=== PATIENT | male | born 1950 | race Caucasian/White ===

== ENCOUNTER 2016-03-25 12:42 | Emergency (ER) | payer MEDICARE, MEDICAID ==
[~2016-03-25] VITALS: Ht 175.3 cm; Wt 61.0 kg
[~2016-03-25 12:42] MED LIST: APIX5TAB PO; CLON1 PO; DILT300C3 PO; HARVONI PO; METO-309 PO; MORP15TA73; MS C30TA PO; MULT-6 PO; PROB1CAP12 PO; SYMB80AE INH; VITA10007 PO; ZOFR4TAB PO
[2016-03-25 12:56] VITALS: BP 133/68; PULSE 107; RESP 22; TEMP 97.6; O2SAT 100
[2016-03-25 13:05] VITALS: BP 133/68; PULSE 107; RESP 22; TEMP 97.6; O2SAT 100
[2016-03-25 13:22] VITALS: O2SAT 100
--- NOTE | 2016-03-25 13:27 | PD ---
HPI Chief Complaint: Cardiac Complaint Time Seen by Provider: 13:10 Travel History International Travel<30 days: No Contact w/Intl Traveler<30days: No Traveled to known affect area: No History of Present Illness HPI 65-year-old male complains of shortness of breath and abdominal pain. Patient has history of recurrent right low quadrant abdominal pain for the past few months. Patient has been seen by GI specialist and to the emergency room for the pain in the past. Patient also has history COPD. Patient has been using Symbicort home. Patient states that he is unable to tolerate albuterol because of fibrillation problem. Patient denies any chest pain. Patient denies any nausea vomiting diarrhea. Patient states the pain is same recurrent pain he has some right upper quadrant of the abdomen. Patient has been taking morphine at home for pain. Patient denies any coughing congestion fever chills. Patient has history of hepatitis C. Patient has history of atrial fibrillation , anxiety, hypertension, PTSD. PFSH Past Medical History Hx Anticoagulant Therapy: Yes Arthritis: Yes Asthma: No Atrial Fibrillation: Yes (WITH RVR) Autoimmune Disease: No Blood Disorders: No Anxiety: Yes ("severe") Depression: Yes (dysphoria...low grade) Heart Rhythm Problems: Yes (A fib) Cardiovascular Problems: Yes (htn on meds, a-fib) High Cholesterol: No Chemotherapy: No Chest Pain: No Congestive Heart Failure: No COPD: Yes Cerebrovascular Accident: No Diabetes: No Diminished Hearing: No Deep Vein Thrombosis: Yes (RLE) Endocrine: No Gastrointestinal Disorders: Yes GERD: No Glaucoma: No Genitourinary: No Headaches: No Hepatitis: Yes (C) Hiatal Hernia: No Hypertension: Yes Immune Disorder: No Implanted Vascular Access Dvce: Yes Kidney Stones: No Musculoskeletal: Yes (RIGHT ANKLE MULTIPLE SURGERIES, PINS AND SCREWS) Neurologic: Yes Psychiatric: Yes (PTSD) Reproductive: No Respiratory: Yes (copd) Immunizations Current: Yes Migraines: No Myocardial Infarction: No Pancreatitis: Yes Pneumonia: Yes Radiation Therapy: No Renal Failure: No Seizures: No Sickle Cell Disease: No Sleep Apnea: No Thyroid Disease: No Ulcer: No Tetanus Vaccination: > 5 Years Influenza Vaccination: Yes Past Surgical History Abdominal Surgery: No AICD: No Appendectomy: No Arteriovenous Shunt: No Body Medical Devices: PLATE/SCREWS FOR R/ANKLE Cardiac Surgery: No Cholecystectomy: No Ear Surgery: No Endocrine Surgery: No Eye Surgery: No Genitourinary Surgery: No Insulin Pump: No Joint Replacement: Yes (rt ankle) Neurologic Surgery: No Oral Surgery: Yes (TEETH REMOVED 2014) Pacemaker: No Thoracic Surgery: No Tonsillectomy: Yes Other Surgery: Yes Social History Alcohol Use: No Tobacco Use: Yes (2 TO 3 CIGS PER DAY) Substance Use: No Allergies-Medications (Allergen,Severity, Reaction): Coded Allergies: Codeine (Verified Allergy, Severe, TURN RED, SOB, HIVES, 03/25/16) Nizoral (Verified Allergy, Intermediate, Rash, 03/25/16) ITCHING *MDRO Multi-Drug Resistant Organism (Verified Adverse Reaction, Unknown, ) Pt. reports hx MRSA. MRSA PCR Screen NEGATIVE - 10/26/14, 03/23/15 CLEARED PER INFECTION CONTROL Reported Meds & Prescriptions Reported Meds & Active Scripts Active Reported [harvoNI] 400 Mg PO DAILY Lopressor (Metoprolol Tartrate) 50 Mg Tab 75 Mg PO BID Eliquis (Apixaban) 5 Mg Tab 5 Mg PO BID Morphine Sulfate CR (Morphine Sulfate) 15 Mg Tab TID Ms Contin (Morphine Sulfate) 30 Mg Tab 30 Mg PO Symbicort Inh (Budesonide/Formoterol Fumarate) 80-4.5 Mcg/Act Aero 2 Puff INH Q12HR Diltiazem CD 24 HR 300 Mg Caper 300 Mg PO DAILY Klonopin (Clonazepam) 1 Mg Tab 1 Mg PO TID Review of Systems General / Constitutional: No: Fever Eyes: No: Visual changes HENT: No: Headaches Cardiovascular: No: Chest Pain or Discomfort Respiratory: Positive: Shortness of Breath Gastrointestinal: Positive: Abdominal Pain Genitourinary: No: Dysuria Musculoskeletal: No: Pain Skin: No Rash Neurologic: No: Weakness Psychiatric: No: Depression Endocrine: No: Polydipsia Hematologic/Lymphatic: No: Easy Bruising Physical Exam Narrative GENERAL: Well-nourished, well-developed patient. SKIN: Warm and dry. HEAD: Normocephalic. EYES: No scleral icterus. No injection or drainage. NECK: Supple, trachea midline. No JVD or lymphadenopathy. CARDIOVASCULAR: Regular rate and rhythm without murmurs, gallops, or rubs. RESPIRATORY: Breath sounds equal bilaterally. No accessory muscle use. GASTROINTESTINAL: Abdomen soft, nondistended. Patient has moderate tenderness on palpation right upper quadrant of the abdomen. No rebound tenderness. No mass. MUSCULOSKELETAL: No cyanosis, or edema. BACK: Nontender without obvious deformity. No CVA tenderness. Neurologic exam normal. Data Data Last Documented VS Vital Signs Date Time Temp Pulse Resp B/P Pulse Ox O2 Delivery O2 Flow Rate FiO2 03/25/16 13:22 100 Room Air 03/25/16 13:05 97.6 107 22 133/68 Orders Complete Blood Count With Diff (03/25/16 13:18) Comprehensive Metabolic Panel (03/25/16 13:18) Prothrombin Time / Inr (Pt) (03/25/16 13:18) Act Partial Throm Time (Ptt) (03/25/16 13:18) Lipase (03/25/16 13:18) Chest, Single Ap (03/25/16 13:18) Iv Access Insert/Monitor (03/25/16 13:18) Ecg Monitoring (03/25/16 13:18) Oximetry (03/25/16 13:18) Labs Laboratory Tests Test 03/25/16 13:23 White Blood Count 11.3 TH/MM3 Red Blood Count 4.35 MIL/MM3 Hemoglobin 10.9 GM/DL Hematocrit 34.0 % Mean Corpuscular Volume 78.0 FL Mean Corpuscular Hemoglobin 25.0 PG Mean Corpuscular Hemoglobin 32.0 % Concent Red Cell Distribution Width 17.6 % Platelet Count 493 TH/MM3 Mean Platelet Volume 7.6 FL Neutrophils (%) (Auto) 43.8 % Lymphocytes (%) (Auto) 45.6 % Monocytes (%) (Auto) 9.0 % Eosinophils (%) (Auto) 0.8 % Basophils (%) (Auto) 0.8 % Neutrophils # (Auto) 5.0 TH/MM3 Lymphocytes # (Auto) 5.1 TH/MM3 Monocytes # (Auto) 1.0 TH/MM3 Eosinophils # (Auto) 0.1 TH/MM3 Basophils # (Auto) 0.1 TH/MM3 CBC Comment AUTO DIFF Differential Comment AUTO DIFF CONFIRMED Target Cells 1+ Prothrombin Time 11.2 SEC Prothromb Time International 1.0 RATIO Ratio Activated Partial 30.0 SEC Thromboplast Time Sodium Level 139 MEQ/L Potassium Level 3.9 MEQ/L Chloride Level 105 MEQ/L Carbon Dioxide Level 26.5 MEQ/L Anion Gap 8 MEQ/L Blood Urea Nitrogen 9 MG/DL Creatinine 0.75 MG/DL Estimat Glomerular Filtration 105 ML/MIN Rate Random Glucose 91 MG/DL Calcium Level 8.6 MG/DL Total Bilirubin 0.3 MG/DL Aspartate Amino Transf 42 U/L (AST/SGOT) Alanine Aminotransferase 41 U/L (ALT/SGPT) Alkaline Phosphatase 88 U/L Total Protein 7.5 GM/DL Albumin 3.1 GM/DL Lipase 307 U/L MDM Medical Decision Making Medical Screen Exam Complete: Yes Emergency Medical Condition: Yes Interpretation(s) 1353 PM. Last Impressions Chest X-Ray 03/25/16 1318 Signed Impressions: Service Date/Time: Friday, March 25, 2016 13:20 - CONCLUSION: No acute disease. Sofie Nava MD 1353 PM. CBC WBC 11.3. Hemoglobin 10.9 and hematocrit 34.0. MCV 78. CMP within normal limit. Differential Diagnosis Differential diagnosis including acute exacerbation COPD, acute exacerbation of right upper quadrant abdominal pain, gastritis, PUD, pancreatitis, cholecystitis , colitis, UTI, pyelonephritis. Narrative Course 65-year-old male with recurrent right upper quadrant abdominal pain. History of hepatitis C. Patient denies shortness of breath. History COPD. Diagnosis Primary Impression: Recurrent abdominal pain Additional Impression: COPD (chronic obstructive pulmonary disease) Qualified Code: J44.9 - Chronic obstructive pulmonary disease, unspecified COPD type Patient Instructions: General Instructions Additional Instructions: Continue with medications. Use albuterol treatment as needed for shortness of breath. Follow-up with personal physician. Return if worse. Med/Other Pt SpecificInfo: No Change to Meds Disposition: 01 DISCHARGE HOME Condition: Stable Patel Bryson MD Mar 25, 2016 13:26
[2016-03-25 13:30] LABS: BASOPHIL # 0.1 TH/MM3 (0-0.2); BASOPHIL % 0.8 % (0.0-2.0); EOSINOPHIL # 0.1 TH/MM3 (0-0.4); EOSINOPHIL % 0.8 % (0.0-4.0); LYMPH % 45.6 % (9.0-44.0); LYMPHOCYTE # 5.1 TH/MM3 (1.0-4.8); NEUT % 43.8 % (16.0-70.0); PLATELET COUNT 493 TH/MM3 (150-450); RED BLOOD COUNT 4.35 MIL/MM3 (4.50-5.90); RED CELL DISTRIBUTION WIDTH 17.6 % (11.6-17.2); WHITE BLOOD COUNT 11.3 TH/MM3 (4.0-11.0)
[2016-03-25 13:32] LABS: HEMO FLAGS AUTO DIFF
--- NOTE | 2016-03-25 13:34 | RADHPO ---
EXAM DATE/TIME: 03/25/2016 13:20 [facility] COMPARISON: CT PULMONARY ANGIOGRAM, July 09, 2015, 13:22. CHEST SINGLE AP, January 29, 2016, 19:33. US ABDOME N - GALLBLADDER, February 11, 2016, 12:10. INDICATIONS : Short of breath. MEDICAL HISTORY : Hypertension. Chronic obstructive pulmonary disease. Emphysema. SURGICAL HISTORY : None. ENCOUNTER: Initial ACUITY: 1 week PAIN SCORE: 0/10 LOCATION: Bilateral chest FINDINGS: Single AP upright view of the chest demonstrates stable scarring within the left lung apex and left l ower lung. Stable findings consistent with COPD and emphysema. No evidence of pneumothorax or focal a irspace consolidation. Heart size is normal. Osseous structures are unremarkable. CONCLUSION: No acute disease. Sofie Nava MD on March 25, 2016 at 13:31 Board Certified Radiologist. This report was verified electronically.
[2016-03-25 13:36] LABS: CHLORIDE 105 MEQ/L (98-107); POTASSIUM 3.9 MEQ/L (3.5-5.1); SODIUM (NA) 139 MEQ/L (136-145)
[2016-03-25 13:41] LABS: ANION GAP 8 MEQ/L (5-15); BICARBONATE 26.5 MEQ/L (21.0-32.0); BLOOD UREA NITROGEN 9 MG/DL (7-18)
[2016-03-25 13:42] LABS: PROTHROMBIN TIME - PATIENT 11.2 SEC (9.8-11.6)
[2016-03-25 13:44] LABS: ALT (GPT) 41 U/L (12-78); AST (GOT) 42 U/L (15-37); GLOMERULAR FILTRATION RATE 105 ML/MIN (>89)
[2016-03-25 13:45] LABS: TOTAL BILIRUBIN ADULT 0.3 MG/DL (0.2-1.0)
[2016-03-25 13:47] LABS: ALKALINE PHOSPHATASE 88 U/L (45-117)
[2016-03-25 13:50] LABS: TARGET CELLS 1+ (NORMAL)
[2016-03-25 13:51] LABS: SCAN/DIFF AUTO DIFF CONFIRMED
[2016-03-25 14:01] VITALS: BP 119/68; PULSE 90; RESP 17; O2SAT 100
--- NOTE | 2016-03-26 22:48 | EKG ---
Date Performed: 03/25/2016 Time Performed: 12:41:52 PTAGE: 65 years EKG: Atrial fibrillation with rapid ventricular response Inferior and septal ST-T changes are no nspecific Abnormal ECG PREVIOUS TRACING : 01/29/2016 19.15 DOCTOR: Allen Villegas Interpretating Date/Time 03/26/2016 22:44:57
[2016-03-31] MEDS ORDERED: APIX5TAB PO (09:00)
[2016-04-30] MEDS ORDERED: ZOLO100T PO (16:21)
[2016-04-30] MEDS ORDERED: MORP15TA73 (16:24)
[2016-05-08] MEDS ORDERED: DILT300C3 PO (17:09)
[2016-06-03] MEDS ORDERED: SERT-129 PO (11:24)
[2016-06-06] MEDS ORDERED: DILT300C3 PO (14:34)
[2016-06-12] MEDS ORDERED: CIPR0.3S2 LEFT EYE (13:35)
[2016-06-12] MEDS ORDERED: KETO0.5S2 LEFT EYE (13:35)
[2016-06-12] MEDS ORDERED: PRED1SUS LEFT EYE (13:35)
[2016-07-03] MEDS ORDERED: KETO0.5S2 LEFT EYE (14:24)
[2016-07-03] MEDS ORDERED: PRED1SUS LEFT EYE (14:24)
[2016-07-31] MEDS ORDERED: APIX5TAB PO (13:01)
== END 2016-03-25 14:11 | disposition home or self-care (01) ==
LOC: PHED 12:42
DX: R10.9 Unspecified abdominal pain (principal); J44.9 Chronic obstructive pulmonary disease, unspecified; Z79.01 Long term (current) use of anticoagulants; I48.91 Unspecified atrial fibrillation; I10 Essential (primary) hypertension; F41.9 Anxiety disorder, unspecified; Z86.718 Personal history of other venous thrombosis and embolism; F43.10 Post-traumatic stress disorder, unspecified; F17.210 Nicotine dependence, cigarettes, uncomplicated
CPT/HCPCS: 71010; 80053; 83690; 85025; 85610; 85730; 93005; 99285

== ENCOUNTER 2016-04-21 13:59 | Emergency (ER) | payer MEDICARE, MEDICAID ==
[~2016-04-21] VITALS: Ht 175.3 cm; Wt 62.7 kg
[~2016-04-21 13:59] MED LIST changes: -MULT-6 PO; -PROB1CAP12 PO; -VITA10007 PO; -ZOFR4TAB PO
[2016-04-21 14:10] VITALS: BP 119/73; PULSE 110; RESP 22; TEMP 98.4; O2SAT 100
[2016-04-22] MEDS ORDERED: MS C30TA PO (23:53)
[2016-04-30] MEDS ORDERED: ZOLO100T PO (16:21)
[2016-04-30] MEDS ORDERED: MORP15TA73 (16:24)
[2016-05-08] MEDS ORDERED: DILT300C3 PO (17:09)
[2016-06-03] MEDS ORDERED: SERT-129 PO (11:24)
[2016-06-06] MEDS ORDERED: DILT300C3 PO (14:34)
[2016-06-12] MEDS ORDERED: CIPR0.3S2 LEFT EYE (13:35)
[2016-06-12] MEDS ORDERED: KETO0.5S2 LEFT EYE (13:35)
[2016-06-12] MEDS ORDERED: PRED1SUS LEFT EYE (13:35)
[2016-07-03] MEDS ORDERED: PRED1SUS LEFT EYE (14:24)
[2016-07-03] MEDS ORDERED: KETO0.5S2 LEFT EYE (14:24)
[2016-07-31] MEDS ORDERED: APIX5TAB PO (13:01)
== END 2016-04-21 15:37 | disposition left against medical advice (07) ==
LOC: PHED 13:59
DX: R06.02 Shortness of breath (principal)
CPT/HCPCS: 99281

== ENCOUNTER 2016-04-22 17:01 | Observation (INO) | payer MEDICARE, MEDICAID ==
[~2016-04-22] VITALS: Ht 175.3 cm; Wt 62.1 kg
[2016-04-22 17:18] VITALS: BP 106/67; PULSE 99; RESP 16; TEMP 98; O2SAT 100
[2016-04-22] MEDS ORDERED: MORPHINE SULFATE 4 MG/ML INJ IV PUSH ONE ×2 (18:00→19:30)
[2016-04-22] MEDS ORDERED: SODIUM CHLORIDE 0.9% FLUSH 5 ML FLUSH IVF PRN ×2 (18:00→22:45)
[2016-04-22] MEDS ORDERED: RESP: ALBUTEROL 2.5 MG/IPRATROPIUM 0.5 MG NEB (SCH) NEB ONE (18:00)
[2016-04-22 18:13] VITALS: O2SAT 100
[2016-04-22 18:17] LABS: AUTOMATED NEUTROPHIL # 2.8 TH/MM3 (1.8-7.7); BASOPHIL # 0.1 TH/MM3 (0-0.2); BASOPHIL % 1.9 % (0.0-2.0); EOSINOPHIL # 0.1 TH/MM3 (0-0.4); EOSINOPHIL % 1.1 % (0.0-4.0); HEMATOCRIT 30.8 % (39.0-51.0); HEMO FLAGS AUTO DIFF; LYMPH % 41.9 % (9.0-44.0); LYMPHOCYTE # 2.8 TH/MM3 (1.0-4.8); MEAN CELL VOLUME 75.7 FL (80.0-100.0); MEAN CORPUSCULAR HEMOGLOBIN 23.5 PG (27.0-34.0); MONO % 13.5 % (0.0-8.0); NEUT % 41.6 % (16.0-70.0); PLATELET COUNT 412 TH/MM3 (150-450); RED BLOOD COUNT 4.07 MIL/MM3 (4.50-5.90); RED CELL DISTRIBUTION WIDTH 16.8 % (11.6-17.2); WHITE BLOOD COUNT 6.7 TH/MM3 (4.0-11.0)
[2016-04-22 18:45] LABS: SCAN/DIFF AUTO DIFF CONFIRMED
--- NOTE | 2016-04-22 18:56 | RADHPO ---
EXAM DATE/TIME: 04/22/2016 18:29 [facility] COMPARISON: CHEST SINGLE AP, January 29, 2016, 19:33. INDICATIONS : Short of breath for 4 days. MEDICAL HISTORY : Hypertension. Chronic obstructive pulmonary disease. Emphysema. SURGICAL HISTORY : None. ENCOUNTER: Initial ACUITY: 4 - 6 days PAIN SCORE: 0/10 LOCATION: Bilateral chest FINDINGS: There is stable left apical and basilar parenchymal scarring. No new infiltrate. Right lung relativel y clear. Heart size mildly enlarged. No pneumothorax. No significant effusion. CONCLUSION: 1. Stable left apical and basilar parenchymal scarring. No effusion. No pneumothorax. Santos Dalal MD on April 22, 2016 at 18:53 Board Certified Radiologist. This report was verified electronically.
--- NOTE | 2016-04-22 19:01 | PD ---
HPI Chief Complaint: Abdominal Pain Time Seen by Provider: 17:34 Travel History International Travel<30 days: No Contact w/Intl Traveler<30days: No Traveled to known affect area: No History of Present Illness HPI Patient is 65-year-old male presents emergency Department with 2 complaints: First complaint is he started having shortness of breath or cough. He does have a smoking history and history of COPD. States she's been having just a small amount of increased work of breathing. Patient denies any fever does endorse a dry cough. Does not use oxygen at home. No history of stasis or long trips recently. States his symptoms began after 2 days. Patient's second complaint is some right upper quadrant plain as well as some mild nausea without vomiting. Patient does state he has a history of hepatitis C and recently could have on a treatment. Patient states that after her chronic treatment he became some short of breath as well as this abdominal pain. Denies any blood in the stool diarrhea pale in the stool skin color changes. States his symptoms been going on for a week. Patient states he came here yesterday however the wait was too long and left without being seen. PFSH Past Medical History Hx Anticoagulant Therapy: Yes Arthritis: Yes Asthma: No Atrial Fibrillation: Yes (WITH RVR) Autoimmune Disease: No Blood Disorders: No Anxiety: Yes ("severe") Depression: Yes (dysphoria...low grade) Heart Rhythm Problems: Yes (A fib) Cardiovascular Problems: Yes (htn on meds, a-fib) High Cholesterol: No Chemotherapy: No Chest Pain: No Congestive Heart Failure: No COPD: Yes Cerebrovascular Accident: No Diabetes: No Diminished Hearing: No Deep Vein Thrombosis: Yes (RLE) Endocrine: No Gastrointestinal Disorders: Yes GERD: No Glaucoma: No Genitourinary: No Headaches: No Hepatitis: Yes (C) Hiatal Hernia: No Heparin Induced Thrombocytopen: No Hypertension: Yes Immune Disorder: No Implanted Vascular Access Dvce: Yes Kidney Stones: No Musculoskeletal: Yes (RIGHT ANKLE MULTIPLE SURGERIES, PINS AND SCREWS) Neurologic: Yes Psychiatric: Yes (PTSD) Reproductive: No Respiratory: Yes (copd) Immunizations Current: Yes Migraines: No Myocardial Infarction: No Pancreatitis: Yes Pneumonia: Yes Radiation Therapy: No Renal Failure: No Seizures: No Sickle Cell Disease: No Sleep Apnea: No Thyroid Disease: No Ulcer: No Past Surgical History Abdominal Surgery: No AICD: No Appendectomy: No Arteriovenous Shunt: No Body Medical Devices: PLATE/SCREWS FOR R/ANKLE Cardiac Surgery: No Cholecystectomy: No Ear Surgery: No Endocrine Surgery: No Eye Surgery: No Genitourinary Surgery: No Insulin Pump: No Joint Replacement: Yes (rt ankle) Neurologic Surgery: No Oral Surgery: Yes (TEETH REMOVED 2014) Pacemaker: No Thoracic Surgery: No Tonsillectomy: Yes Other Surgery: Yes Social History Alcohol Use: No Tobacco Use: Yes (2 TO 3 CIGS PER DAY) Substance Use: No Allergies-Medications (Allergen,Severity, Reaction): Coded Allergies: Codeine (Verified Allergy, Severe, TURN RED, SOB, HIVES, 04/22/16) Nizoral (Verified Allergy, Intermediate, Rash, 04/22/16) ITCHING *MDRO Multi-Drug Resistant Organism (Verified Adverse Reaction, Unknown, ) Pt. reports hx MRSA. MRSA PCR Screen NEGATIVE - 10/26/14, 03/23/15 CLEARED PER INFECTION CONTROL Reported Meds & Prescriptions Reported Meds & Active Scripts Active Eliquis (Apixaban) 5 Mg Tab 5 Mg PO BID Reported Lopressor (Metoprolol Tartrate) 50 Mg Tab 75 Mg PO BID Symbicort Inh (Budesonide/Formoterol Fumarate) 80-4.5 Mcg/Act Aero 2 Puff INH Q12HR Diltiazem CD 24 HR 300 Mg Caper 300 Mg PO DAILY Klonopin (Clonazepam) 1 Mg Tab 1 Mg PO TID Review of Systems Except as stated in HPI: all other systems reviewed are Neg Physical Exam Narrative GENERAL: Well-developed thin but in no apparent distress. SKIN: Warm and dry. HEAD: Atraumatic. Normocephalic. EYES: Pupils equal and round. No scleral icterus. No injection or drainage. ENT: No nasal bleeding or discharge. Mucous membranes pink and moist. NECK: Trachea midline. No JVD. CARDIOVASCULAR: Regular rate and rhythm. No murmur appreciated. RESPIRATORY: No accessory muscle use. Harsh breath sounds wheezes and rhonchi consistent with bronchitis. Breath sounds equal bilaterally. GASTROINTESTINAL: Abdomen soft, minimal tenderness to the right upper quadrant, nondistended. Hepatic and splenic margins not palpable. Rodriguez sign negative, no tenderness in McBurney's point. No rebound no percussive tenderness. MUSCULOSKELETAL: No obvious deformities. No clubbing. No cyanosis. No edema. NEUROLOGICAL: Awake and alert. No obvious cranial nerve deficits. Motor grossly within normal limits. Normal speech. PSYCHIATRIC: Appropriate mood and affect; insight and judgment normal. Data Data Last Documented VS Vital Signs Date Time Temp Pulse Resp B/P Pulse Ox O2 Delivery O2 Flow Rate FiO2 04/22/16 18:13 100 2 17:33 18 04/22/16 17:18 98.0 99 106/67 Orders Complete Blood Count With Diff (04/22/16 17:53) Comprehensive Metabolic Panel (04/22/16 17:53) Lipase (04/22/16 17:53) Lactic Acid (04/22/16 17:53) Prothrombin Time / Inr (Pt) (04/22/16 17:53) Act Partial Throm Time (Ptt) (04/22/16 17:53) Urinalysis - C+S If Indicated (04/22/16 17:53) Iv Access Insert/Monitor (04/22/16 17:53) Ecg Monitoring (04/22/16 17:53) Oximetry (04/22/16 17:53) Morphine Inj (Morphine Inj) (04/22/16 18:00) Sodium Chloride 0.9% Flush (Ns Flush) (04/22/16 18:00) Electrocardiogram (04/22/16 17:53) Chest, Single Ap (04/22/16 17:53) Albuterol-Ipratropium Neb (Duoneb Neb) (04/22/16 18:00) Us Abdomen Gallbladder (04/22/16 18:43) Labs Laboratory Tests Test 04/22/16 18:06 White Blood Count 6.7 TH/MM3 Red Blood Count 4.07 MIL/MM3 Hemoglobin 9.6 GM/DL Hematocrit 30.8 % Mean Corpuscular Volume 75.7 FL Mean Corpuscular Hemoglobin 23.5 PG Mean Corpuscular Hemoglobin 31.0 % Concent Red Cell Distribution Width 16.8 % Platelet Count 412 TH/MM3 Mean Platelet Volume 7.7 FL Neutrophils (%) (Auto) 41.6 % Lymphocytes (%) (Auto) 41.9 % Monocytes (%) (Auto) 13.5 % Eosinophils (%) (Auto) 1.1 % Basophils (%) (Auto) 1.9 % Neutrophils # (Auto) 2.8 TH/MM3 Lymphocytes # (Auto) 2.8 TH/MM3 Monocytes # (Auto) 0.9 TH/MM3 Eosinophils # (Auto) 0.1 TH/MM3 Basophils # (Auto) 0.1 TH/MM3 CBC Comment AUTO DIFF Differential Comment AUTO DIFF CONFIRMED MDM Medical Decision Making Medical Screen Exam Complete: Yes Emergency Medical Condition: Yes Interpretation(s) EKG shows a defibrillation with a normal axis and normal R-wave progression. No concerning ST T changes. Intervals otherwise within normal limits. This is an abnormal EKG. Differential Diagnosis Acute cholecystitis, acute exacerbation of COPD, nausea, vomiting, ACS unlikely. Narrative Course Patient roomed in the emergency department, he appears thin but in no acute respiratory or abdominal distress. He does have breath sounds consistent with rhonchi to us and DuoNeb treatments were ordered. Laboratory shows no increased white blood cell count. Ultrasound of his right upper quadrant was added. Pain medicine was ordered as well. Patient will be discussed with the oncoming provider Dr. Jaramillo to follow-up ultrasound of the right upper quadrant as well as chemistry disposition appropriately. Michael Garcia MD Apr 22, 2016 19:01
--- NOTE | 2016-04-22 19:19 | PD ---
Physical Exam Date Seen by Provider: Apr 22, 2016 Time Seen by Provider: 19:18 Narrative Accepted in transfer of care from Dr. Garcia Data Data Last Documented VS Vital Signs Date Time Temp Pulse Resp B/P Pulse Ox O2 Delivery O2 Flow Rate FiO2 04/22/16 22:30 81 20 120/70 95 04/22/16 19:21 97.8 Orders Complete Blood Count With Diff (04/22/16 17:53) Comprehensive Metabolic Panel (04/22/16 17:53) Lipase (04/22/16 17:53) Lactic Acid (04/22/16 17:53) Prothrombin Time / Inr (Pt) (04/22/16 17:53) Act Partial Throm Time (Ptt) (04/22/16 17:53) Urinalysis - C+S If Indicated (04/22/16 17:53) Iv Access Insert/Monitor (04/22/16 17:53) Ecg Monitoring (04/22/16 17:53) Oximetry (04/22/16 17:53) Morphine Inj (Morphine Inj) (04/22/16 18:00) Sodium Chloride 0.9% Flush (Ns Flush) (04/22/16 18:00) Electrocardiogram (04/22/16 17:53) Chest, Single Ap (04/22/16 17:53) Albuterol-Ipratropium Neb (Duoneb Neb) (04/22/16 18:00) Us Abdomen Gallbladder (04/22/16 18:43) Sodium Chlorid 0.9% 500 Ml Inj (Ns 500 M (04/22/16 19:30) Morphine Inj (Morphine Inj) (04/22/16 19:30) Blood Culture (04/22/16 21:55) Ct Abd/Pel W Iv Contrast(Rout) (04/22/16 ) Place In Observation (04/22/16 ) Vital Signs (Adult) Q4H (04/22/16 22:31) Activity Oob With Assistance (04/22/16 22:31) Flyer Maker / Telemetry .CONTINUOUS (04/22/16 22:31) Diet Heart Healthy (04/23/16 Breakfast) Sodium Chloride 0.9% Flush (Ns Flush) (04/22/16 22:45) Sodium Chloride 0.9% Flush (Ns Flush) (04/23/16 09:00) Basic Metabolic Panel (Bmp) (04/23/16 06:00) Complete Blood Count With Diff (04/23/16 06:00) Enoxaparin Inj (Lovenox Inj) (04/22/16 22:45) Naloxone Inj (Narcan Inj) (04/22/16 22:45) Albuterol-Ipratropium Neb (Duoneb Neb) (04/22/16 22:45) Apixaban (Eliquis) (04/23/16 09:00) Clonazepam (Klonopin) (04/23/16 09:00) Diltiazem Cd (Cardizem Cd) (04/23/16 09:00) Metoprolol Tartrate (Lopressor) (04/23/16 09:00) Admit Order (Ed Use Only) (04/22/16 ) ^ Saline Lock (04/22/16 22:35) Resp Oxygen Harrison C Titrat 1-4 L (04/22/16 ) ^ Notify Dr: Other (04/22/16 22:35) Sodium Chloride 0.9% Flush (Ns Flush) (04/23/16 09:00) Sodium Chloride 0.9% Flush (Ns Flush) (04/22/16 22:45) Protein Corrected Calcium(Pcc) (04/23/16 06:08) Labs Laboratory Tests Test 04/22/16 04/22/16 18:06 21:35 White Blood Count 6.7 TH/MM3 Red Blood Count 4.07 MIL/MM3 Hemoglobin 9.6 GM/DL Hematocrit 30.8 % Mean Corpuscular Volume 75.7 FL Mean Corpuscular Hemoglobin 23.5 PG Mean Corpuscular Hemoglobin 31.0 % Concent Red Cell Distribution Width 16.8 % Platelet Count 412 TH/MM3 Mean Platelet Volume 7.7 FL Neutrophils (%) (Auto) 41.6 % Lymphocytes (%) (Auto) 41.9 % Monocytes (%) (Auto) 13.5 % Eosinophils (%) (Auto) 1.1 % Basophils (%) (Auto) 1.9 % Neutrophils # (Auto) 2.8 TH/MM3 Lymphocytes # (Auto) 2.8 TH/MM3 Monocytes # (Auto) 0.9 TH/MM3 Eosinophils # (Auto) 0.1 TH/MM3 Basophils # (Auto) 0.1 TH/MM3 CBC Comment AUTO DIFF Differential Comment AUTO DIFF CONFIRMED Prothrombin Time 11.9 SEC Prothromb Time International 1.1 RATIO Ratio Activated Partial 28.0 SEC Thromboplast Time Sodium Level 137 MEQ/L Potassium Level 4.1 MEQ/L Chloride Level 102 MEQ/L Carbon Dioxide Level 24.8 MEQ/L Anion Gap 10 MEQ/L Blood Urea Nitrogen 7 MG/DL Creatinine 0.72 MG/DL Estimat Glomerular Filtration 110 ML/MIN Rate Random Glucose 79 MG/DL Lactic Acid Level 2.3 mmol/L Calcium Level 8.0 MG/DL Total Bilirubin 0.2 MG/DL Aspartate Amino Transf 40 U/L (AST/SGOT) Alanine Aminotransferase 35 U/L (ALT/SGPT) Alkaline Phosphatase 88 U/L Total Protein 6.9 GM/DL Albumin 3.1 GM/DL Lipase 182 U/L Urine Collection Type CLEAN CATCH Urine Color YELLOW Urine Turbidity CLEAR Urine pH 5.5 Urine Specific [place] 1.008 Urine Protein NEG mg/dL Urine Glucose (UA) NEG mg/dL Urine Ketones NEG mg/dL Urine Occult Blood NEG Urine Nitrite NEG Urine Bilirubin NEG Urine Leukocyte Esterase NEG Urine Squamous Epithelial 0-5 /hpf Cells Urine Amorphous Sediment SMALL Urine Mucus RARE /lpf Microscopic Urinalysis Comment CULT NOT INDICATED MDM Medical Record Reviewed: Yes Supervised Visit with DORIAN: No Interpretation(s) Vital Signs Date Time Temp Pulse Resp B/P Pulse Ox O2 Delivery O2 Flow Rate FiO2 04/22/16 19:21 97.8 76 20 103/70 100 04/22/16 19:21 20 04/22/16 18:13 100 04/22/16 17:33 18 04/22/16 17:18 98.0 99 16 106/67 100 Last Impressions Gall Bladder Ultrasound 04/22/16 1843 Signed Impressions: Service Date/Time: Friday, April 22, 2016 20:11 - CONCLUSION: 1. No acute findings. Mild fatty liver. Small right renal cysts. Santos Dalal MD Chest X-Ray 04/22/16 8538 Signed Impressions: Service Date/Time: Friday, April 22, 2016 18:29 - CONCLUSION: 1. Stable left apical and basilar parenchymal scarring. No effusion. No pneumothorax. Santos Dalal MD CBC & BMP Diagram 04/22/16 18:06 Differential Diagnosis Accepted in transfer of care from Dr. Garcia please refer to his dictation Narrative Course Accepted in transfer of care from Dr. Garcia for pending US and patient disposition Patient complains of pain; patient noted to have low normal and hypotensive blood pressure therefore normal saline bolus administered Vital signs repeated patient is afebrile continues to complain of generalized weakness total white cell count is normal patient does have anemia that appears to be trending downward from comparison hemoglobins chemistries are found to be grossly within normal range urinalysis is normal chest x-ray no lobar infiltrate ultrasound of the gallbladder identifies no acute abnormality patient does not have any obvious skin rash joint swelling or source of infection although does complain of chills. Blood cultures obtained. Lactic acid obtained. Rectal exam performed without evidence of Hemoccult positive stool or gross blood. Patient reports again that he has recently completed course of her body for hepatitis C and has felt well until approximately a few days ago and has been off the whole-body for proximally 7-10 days. EKG reveals no acute abnormality. Will admit patient for generalized weakness possible early sepsis. Abdominal pain of unclear etiology may be related to hepatitis and recent harmonic treatment patient with mild exacerbation of COPD that has responded well to 1 updraft treatment possibly to consider early respiratory illness or pneumonia although at this time and no respiratory distress. Atrial fibrillation appears to be controlled with controlled ventricular rate. Of concern patient is on atrial fibrillation Eliquis for atrial fibrillation with decreasing hemoglobin. Plan will be to admit patient for observation to have his service for further evaluation of generalized weakness. Case discussed with on-call physician Dr. Pryor; aware CT abd/pel added and results pending. HemaPrompt Test Point of Care Internal Pos. & Neg. Controls: Passed Fecal Specimen Occult Blood: Negative Physician Communication Physician Communication case discussed with Dr Oates --- will accept for OBS Diagnosis Primary Impression: Generalized weakness Additional Impressions: Abdominal pain Qualified Code: R10.11 - Right upper quadrant abdominal pain Hepatitis C COPD (chronic obstructive pulmonary disease) Atrial fibrillation Anemia Admitting Information Admitting Physician Requests: Observation Lashanda Jaramillo MD Apr 22, 2016 19:19
[2016-04-22 19:21] VITALS: BP 103/70; PULSE 76; RESP 20; TEMP 97.8; O2SAT 100
[2016-04-22] MEDS ORDERED: SODIUM CHLORID 0.9% 500 ML INJ 500 ML IV ONE (19:30)
[2016-04-22 20:27] LABS: CHLORIDE 102 MEQ/L (98-107); POTASSIUM 4.1 MEQ/L (3.5-5.1); SODIUM (NA) 137 MEQ/L (136-145)
[2016-04-22 20:30] VITALS: BP 109/56; PULSE 68; RESP 20; O2SAT 95
[2016-04-22 20:30] LABS: ANION GAP 10 MEQ/L (5-15); BICARBONATE 24.8 MEQ/L (21.0-32.0)
[2016-04-22 20:31] LABS: BLOOD UREA NITROGEN 7 MG/DL (7-18)
[2016-04-22 20:32] LABS: INTERNATIONAL NORMALIZED RATIO 1.1 RATIO; PROTHROMBIN TIME - PATIENT 11.9 SEC (9.8-11.6)
[2016-04-22 20:33] LABS: ALT (GPT) 35 U/L (12-78); AST (GOT) 40 U/L (15-37); GLOMERULAR FILTRATION RATE 110 ML/MIN (>89)
[2016-04-22 20:35] LABS: TOTAL BILIRUBIN ADULT 0.2 MG/DL (0.2-1.0)
[2016-04-22 20:36] LABS: ALKALINE PHOSPHATASE 88 U/L (45-117)
[2016-04-22 21:30] VITALS: BP 100/58; PULSE 68; RESP 20; O2SAT 100
--- NOTE | 2016-04-22 21:30 | RADHPO ---
EXAM DATE/TIME: 04/22/2016 20:11 [facility] COMPARISON: US ABDOMEN - GALLBLADDER, February 11, 2016, 12:10. EXTERNAL COMPARISON : [facility], CT ABDOMEN W & W/O CONTRAST, February 11, 2013 INDICATIONS : Right upper quadrant pain. MEDICAL HISTORY : Chronic obstructive pulmonary disease. Hypertension. Deep venous thrombosis. Peripheral neuropathy. A -fib. Emphysema. Pneumonia. Pancreatitis. Rheumatoid arthritis. Post traumatic stress disorder. Depre ssion. Anxiety. Suicide attempt. Hepatitis C. Measles. Eczema. C. diff. SURGICAL HISTORY : Tonsillectomy. Right ankle surgery. ENCOUNTER: Initial ACUITY: 4-6 days PAIN SCORE: 5/10 LOCATION: Right upper quadrant MEASUREMENTS: LIVER: 16.0 cm length COMMON DUCT: 5 mm RIGHT KIDNEY: 11.1 x 6.3 x 4.7 cm FINDINGS: Pancreas not well-visualized. No focal abnormalities in the liver or gallbladder. Common bile duct no rmal caliber at 5 mm. 2 small right renal cysts measuring up to 1.9 cm and 0.9 cm. No hydronephrosis. CONCLUSION: 1. No acute findings. Mild fatty liver. Small right renal cysts. Santos Dalal MD on April 22, 2016 at 21:25 Board Certified Radiologist. This report was verified electronically.
[2016-04-22 21:44] LABS: BLOOD, URINE NEG (NEG); GLUCOSE,URINE NEG (NEG); KETONE, URINE NEG (NEG); NITRITE,URINE NEG (NEG); PH, URINE 5.5 (5.0-8.5)
[2016-04-22 21:58] LABS: METHOD OF COLLECTION CLEAN CATCH; URINE COLOR YELLOW (YELLW/STRAW)
[2016-04-22 21:59] LABS: MUCUS URINE RARE /lpf (OCC); SQUAMOUS EPITHELIAL CELL URINE 0-5 /hpf (0-5)
[2016-04-22 22:00] LABS: COMMENT (UR) CULT NOT INDICATED; CULTURE IF INDICATED CULT NOT INDICATED
[2016-04-22 22:30] VITALS: BP 120/70; PULSE 81; RESP 20; O2SAT 95
[2016-04-22] MEDS ORDERED: RESP: ALBUTEROL 2.5 MG/IPRATROPIUM 0.5 MG NEB (PRN) NEB (22:45)
[2016-04-22] MEDS ORDERED: NALOXONE HCL 0.4 MG/ML AMP IV PRN (22:45)
[2016-04-22] MEDS ORDERED: ENOXAPARIN SODIUM 40 MG/0.4 ML SYRINGE SQ SCH (22:45)
[2016-04-22] MEDS ORDERED: SODIUM CHLORIDE 0.9% FLUSH 5 ML FLUSH FLUSH PRN (22:45)
[2016-04-22] MEDS ORDERED: IOHEXOL 350 MG/ML 10 ML VIAL (for RAD DIAG) IV ONE (23:25)
--- NOTE | 2016-04-22 23:51 | RADHPO ---
EXAM DATE/TIME: 04/22/2016 22:49 [facility] COMPARISON: CT ABDOMEN & PELVIS W CONTRAST, December 01, 2015, 12:38. INDICATIONS : Abdominal pain. IV CONTRAST: 100 cc Omnipaque 350 (iohexol) IV ORAL CONTRAST: No oral contrast ingested. RADIATION DOSE: 5.76 CTDIvol (mGy) MEDICAL HISTORY : Hepatitis C. Pancreatitis. Hypertension.COPD, DVT. SURGICAL HISTORY : None. ENCOUNTER: Initial ACUITY: 2 days PAIN SCALE: 7/10 LOCATION: Bilateral Abdomen and pelvis. TECHNIQUE: Volumetric scanning of the abdomen and pelvis was performed. Using automated exposure control and ad justment of the mA and/or kV according to patient size, radiation dose was kept as low as reasonably achievable to obtain optimal diagnostic quality images. FINDINGS: Liver, gallbladder, spleen, pancreas, adrenal glands, stomach unremarkable. Bilateral renal cysts are noted. Atherosclerotic calcification of the aorta and iliac vessels. Urinary bladder, small bowel, l arge bowel are unremarkable. There are degenerative changes of the spine and hips. There are fibrotic changes at the lung bases. CONCLUSION: 1. Fibrosis of the lung bases. 2. Atherosclerosis. 3. Tiny renal cysts. Javy Ortega MD on April 22, 2016 at 23:48 Board Certified Radiologist. This report was verified electronically.
[2016-04-22] MEDS ORDERED: MS C30TA PO (23:53)
[2016-04-23] VITALS (8 sets, daily range): BP systolic 101–125; BP diastolic 49–80; PULSE 83–94; RESP 17–20; TEMP 97.7–98.3; O2SAT 97–100
[2016-04-23] MEDS ORDERED: clonazePAM 1 MG TAB PO ONE (00:45)
[2016-04-23] MEDS ORDERED: APIXABAN 5 MG TABLET PO ONE (00:45)
[2016-04-23] MEDS ORDERED: KETOROLAC TROMETHAMINE 30 MG/ML (IVP) VIAL IV PUSH PRN (01:30)
[2016-04-23] MEDS ORDERED: hydrOXYzine PAMOATE 25 MG CAP PO ONE (05:00)
[2016-04-23 06:41] LABS: POTASSIUM 3.8 MEQ/L (3.5-5.1)
[2016-04-23 06:43] LABS: AUTOMATED NEUTROPHIL # 2.7 TH/MM3 (1.8-7.7); BASOPHIL # 0.1 TH/MM3 (0-0.2); BASOPHIL % 0.9 % (0.0-2.0); EOSINOPHIL # 0.1 TH/MM3 (0-0.4); EOSINOPHIL % 1.7 % (0.0-4.0); HEMATOCRIT 24.4 % (39.0-51.0); LYMPH % 40.5 % (9.0-44.0); LYMPHOCYTE # 2.5 TH/MM3 (1.0-4.8); MEAN CORPUSCULAR HEMOGLOBIN 23.9 PG (27.0-34.0); MEAN CORPUSCULAR HGB CONC 31.8 % (32.0-36.0); MONO % 13.4 % (0.0-8.0); NEUT % 43.5 % (16.0-70.0); PLATELET COUNT 320 TH/MM3 (150-450); RED BLOOD COUNT 3.25 MIL/MM3 (4.50-5.90); RED CELL DISTRIBUTION WIDTH 17.2 % (11.6-17.2); WHITE BLOOD COUNT 6.2 TH/MM3 (4.0-11.0)
[2016-04-23 06:52] LABS: BICARBONATE 25.8 MEQ/L (21.0-32.0)
[2016-04-23 07:26] LABS: HEMO FLAGS AUTO DIFF
[2016-04-23 08:09] LABS: SCAN/DIFF AUTO DIFF CONFIRMED
[2016-04-23] MEDS ORDERED: APIXABAN 5 MG TABLET PO SCH (09:00)
[2016-04-23] MEDS ORDERED: DILTIAZEM-CD 300 MG CAP ER PO SCH (09:00)
[2016-04-23] MEDS ORDERED: SODIUM CHLORIDE 0.9% FLUSH 5 ML FLUSH FLUSH SCH (09:00)
[2016-04-23] MEDS ORDERED: SODIUM CHLORIDE 0.9% FLUSH 5 ML FLUSH IVF SCH (09:00)
[2016-04-23] MEDS ORDERED: METOPROLOL TARTRATE 50 MG TAB PO SCH (09:00)
[2016-04-23] MEDS: clonazePAM 1 MG TAB PO SCH ×2 (09:34→12:27)
[2016-04-23] MEDS ORDERED: MORPHINE SULFATE 30 MG TAB PO PRN (12:00)
[2016-04-23] MEDS ORDERED: PROT40TA PO (12:11)
[2016-04-23] MEDS ORDERED: MORPHINE SULFATE 15 MG TAB PO PRN (12:12)
--- NOTE | 2016-04-23 12:12 | HHI.DCPOC ---
Discharge Care Plan Diagnosis: (1) Abdominal pain (2) Anemia Goals to Promote Your Health * To prevent worsening of your condition and complications * To maintain your health at the optimal level Directions to Meet Your Goals Take your medications as prescribed Follow your dietary instruction Follow activity as directed Keep your appointments as scheduled Take your immunizations and boosters as scheduled If your symptoms worsen call your PCP, if no PCP go to Urgent Care Center or Emergency Room Smoking is Dangerous to Your Health. Avoid second hand smoke Call the 24-hour hour crisis hotline for domestic abuse at Tasha Beavers MD Apr 23, 2016 12:11
--- NOTE | 2016-04-23 12:21 | HHI.HP ---
cc: Debbie Hernandez MD [facility] Service [facility] Primary Care Physician Desirae Lion MD Admission Diagnosis Generalized weakness Diagnoses: Chief Complaint: Abdominal pain Travel History International Travel<30 Days: No Contact w/Intl Traveler <30 Da: No Traveled to Known Affected Are: No History of Present Illness Patient is a 65-year-old gentleman, known history of hepatitis C and reports some abdominal pain over the last several days. He also had a cough at home. Patient says he has hepatitis C and has been on medicine for this for the last month. Since that time he has had increased weakness and anemia and then a follow-up with his medical assistant secretary. He has not had nausea or hematemesis or melena. Hemoccult done in the emergency room was negative. Patient is noted to be dehydrated and after hydration her hemoglobin went from 9.6-7.6. Patient notes he's had this for a while and hasn't in follow-up again with his medical assistant secretary. He is not dizzy or lightheaded. Patient actually has been on Eliquis for history of PE/DVT and chronic history of atrial fibrillation. In case patient is ambulatory requested to go home. He will like his pain medication and follow-up with his primary medical assistant secretary. He notes that his stools have been within normal limits and not dark or bloody. Patient request No further inpatient evaluation. I did review his CT results personally and there appears to be not in try abdominal acute findings. This discussed with patient. Review of Systems Constitutional: DENIES: Diaphoretic episodes, Fatigue, Fever, Weight gain, Weight loss, Chills, Dizziness, Change in appetite, Night Sweats Endocrine: DENIES: Heat/cold intolerance, Polydipsia, Polyuria, Polyphagia Eyes: DENIES: Blurred vision, Diplopia, Eye inflammation, Eye pain, Vision loss , Photosensitivity, Double Vision Ears, nose, mouth, throat: DENIES: Tinnitus, Hearing loss, Vertigo, Nasal discharge, Oral lesions, Throat pain, Hoarseness, Ear Pain, Running Nose, Epistaxis, Sinus Pain, Toothache, Odynophagia Respiratory: DENIES: Apneas, Cough, Snoring, Wheezing, Hemoptysis, Sputum production, Shortness of breath Cardiovascular: DENIES: Chest pain, Palpitations, Syncope, Dyspnea on Exertion , PND, Lower Extremity Edema, Orthopnea, Claudication Gastrointestinal: COMPLAINS OF: Abdominal pain, Constipation, DENIES: Black stools, Bloody stools, Diarrhea, Nausea, Vomiting, Difficulty Swallowing, Anorexia Genitourinary: DENIES: Sexual dysfunction, Urinary frequency, Urinary incontinence, Urgency, Hematuria, Dysuria, Nocturia, Penile Discharge, Testicular Pain, Testicular Swelling Musculoskeletal: DENIES: Joint pain, Muscle aches, Stiffness, Joint Swelling, Back pain, Neck pain Integumentary: DENIES: Abnormal pigmentation, Nail changes, Pruritus, Rash Hematologic/lymphatic: DENIES: Bruising, Lymphadenopathy Immunologic/allergic: DENIES: Eczema, Urticaria Neurologic: DENIES: Abnormal gait, Headache, Localized weakness, Paresthesias, Seizures, Speech Problems, Tremor, Poor Balance Psychiatric: COMPLAINS OF: Anxiety, DENIES: Confusion, Mood changes, Depression, Hallucinations, Agitation, Suicidal Ideation, Homicidal Ideation, Delusions Past Family Social History Past Medical History Hepatitis C Anemia COPD with ongoing tobacco dependency Chronic pain on pain management team Atrial fibrillation 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 reports hx MRSA. MRSA PCR Screen NEGATIVE - 10/26/14, 03/23/15 CLEARED PER INFECTION CONTROL PROTOCOL Active Ordered Medications Reviewed in the medical records Family History Family with a history of hypertension Social History No tobacco or alcohol dependency issues, lives with his Physical Exam Vital Signs Vital Signs Date Time Temp Pulse Resp B/P Pulse Ox O2 Delivery O2 Flow Rate FiO2 04/23/16 12:00 98.0 88 19 122/80 99 04/23/16 12:00 98.0 88 19 122/80 99 04/23/16 08:00 98.3 94 17 125/78 100 04/23/16 04:00 97.9 84 20 107/75 99 04/23/16 02:58 97 21 04/23/16 00:45 97.7 83 20 120/65 100 04/23/16 00:37 83 04/23/16 00:16 98.1 67 20 101/49 95 04/22/16 22:30 81 20 120/70 95 04/22/16 21:30 68 20 100/58 100 04/22/16 20:30 68 20 109/56 95 04/22/16 19:21 97.8 76 20 103/70 100 04/22/16 19:21 20 04/22/16 18:13 100 04/22/16 17:33 18 04/22/16 17:18 98.0 99 16 106/67 100 Physical Exam GENERAL: This is a well-nourished, well-developed patient, in no apparent distress. SKIN: No rashes, ecchymoses or lesions. Cool and dry. HEAD: Atraumatic. Normocephalic. No temporal or scalp tenderness. EYES: Pupils equal round and reactive. Extraocular motions intact. No scleral icterus. No injection or drainage. ENT: Nose without bleeding, purulent drainage or septal hematoma. Throat without erythema, tonsillar hypertrophy or exudate. Uvula midline. Airway patent. NECK: Trachea midline. No JVD or lymphadenopathy. Supple, nontender, no meningeal signs. CARDIOVASCULAR: Regular rate and rhythm without murmurs, gallops, or rubs. RESPIRATORY: Clear to auscultation. Breath sounds equal bilaterally. No wheezes , rales, or rhonchi. GASTROINTESTINAL: Abdomen soft, non-tender, nondistended. No hepato-splenomegaly , or palpable masses. No guarding. MUSCULOSKELETAL: ankles painful at baseline; Extremities without clubbing, cyanosis, or edema. No joint tenderness, effusion, or edema noted. No calf tenderness. Negative Homans sign bilaterally. NEUROLOGICAL: Awake and alert. Cranial nerves II through XII intact. Motor and sensory grossly within normal limits. Five out of 5 muscle strength in all muscle groups. Normal speech. Laboratory Laboratory Tests Test 04/22/16 04/22/16 04/23/16 04/23/16 18:06 21:35 06:08 09:30 White Blood Count 6.7 6.2 Red Blood Count 4.07 3.25 Hemoglobin 9.6 7.8 Hematocrit 30.8 24.4 Mean Corpuscular Volume 75.7 75.0 Mean Corpuscular Hemoglobin 23.5 23.9 Mean Corpuscular Hemoglobin 31.0 31.8 Concent Red Cell Distribution Width 16.8 17.2 Platelet Count 412 320 Mean Platelet Volume 7.7 7.7 Neutrophils (%) (Auto) 41.6 43.5 Lymphocytes (%) (Auto) 41.9 40.5 Monocytes (%) (Auto) 13.5 13.4 Eosinophils (%) (Auto) 1.1 1.7 Basophils (%) (Auto) 1.9 0.9 Neutrophils # (Auto) 2.8 2.7 Lymphocytes # (Auto) 2.8 2.5 Monocytes # (Auto) 0.9 0.8 Eosinophils # (Auto) 0.1 0.1 Basophils # (Auto) 0.1 0.1 CBC Comment AUTO DIFF AUTO DIFF Differential Comment AUTO DIFF AUTO DIFF CONFIRMED CONFIRMED Prothrombin Time 11.9 Prothromb Time International 1.1 Ratio Activated Partial 28.0 Thromboplast Time Sodium Level 137 138 Potassium Level 4.1 3.8 Chloride Level 102 105 Carbon Dioxide Level 24.8 25.8 Anion Gap 10 7 Blood Urea Nitrogen 7 11 Creatinine 0.72 0.80 Estimat Glomerular Filtration 110 97 Rate Random Glucose 79 89 Lactic Acid Level 2.3 1.7 Calcium Level 8.0 7.4 Total Bilirubin 0.2 Aspartate Amino Transf 40 (AST/SGOT) Alanine Aminotransferase 35 (ALT/SGPT) Alkaline Phosphatase 88 Total Protein 6.9 6.0 Albumin 3.1 Lipase 182 Urine Collection Type CLEAN CATCH Urine Color YELLOW Urine Turbidity CLEAR Urine pH 5.5 Urine Specific [place] 1.008 Urine Protein NEG Urine Glucose (UA) NEG Urine Ketones NEG Urine Occult Blood NEG Urine Nitrite NEG Urine Bilirubin NEG Urine Leukocyte Esterase NEG Urine Squamous Epithelial 0-5 Cells Urine Amorphous Sediment SMALL Urine Mucus RARE Microscopic Urinalysis Comment CULT NOT INDICATED Protein Corrected Calcium 8.0 Blood Type O POSITIVE Antibody Screen NEGATIVE Date/Time Procedure Status Source Growth 04/23/16 00:00 Aerobic Blood Culture Received Blood Peripheral Pending 04/23/16 00:00 Anaerobic Blood Culture Received Blood Peripheral Pending 04/22/16 22:40 Aerobic Blood Culture - Preliminary Resulted Blood Peripheral NO GROWTH IN 1 DAY 04/22/16 22:40 Anaerobic Blood Culture - Preliminary Resulted Blood Peripheral NO GROWTH IN 1 DAY Result Diagram: 04/23/16 0608 04/23/16 0608 Imaging Last Impressions Gall Bladder Ultrasound 04/22/16 1843 Signed Impressions: Service Date/Time: Friday, April 22, 2016 20:11 - CONCLUSION: 1. No acute findings. Mild fatty liver. Small right renal cysts. Santos Dalal MD Chest X-Ray 04/22/16 1753 Signed Impressions: Service Date/Time: Friday, April 22, 2016 18:29 - CONCLUSION: 1. Stable left apical and basilar parenchymal scarring. No effusion. No pneumothorax. Santos Dalal MD Abdomen/Pelvis CT 04/22/16 0000 Signed Impressions: Service Date/Time: Friday, April 22, 2016 22:49 - CONCLUSION: 1. Fibrosis of the lung bases. 2. Atherosclerosis. 3. Tiny renal cysts. Javy Ortega MD Assessment and Plan Problem List: (1) Abdominal pain ICD Code: R10.9 Status: Acute Plan: Resolved with passage of flatus. Tolerating diet. (2) Chronic pain ICD Code: G89.29 Status: Chronic Plan: Patient will continue his home medications. Follow up with his pain management team (3) Hepatitis C ICD Code: B19.20 Status: Acute Plan: Patient currently in outpatient management per Dr. Ng, which she will continue to follow-up with (4) Anemia ICD Code: D64.9 Status: Chronic Plan: Chronic per patient. Currently on iron replacement. We'll continue with outpatient management. Hemoglobin 7.6. No positive Hemoccult. No reported bleeding Continue outpatient management Assessment and Plan dc home follow up PCP/GI team Activity ad renard diet regular Discussed Condition With Patient, [facility] nursing Problem Qualifiers (1) Abdominal pain: Qualified Code: R10.11 - Right upper quadrant abdominal pain Tasha Beavers MD Apr 23, 2016 12:21
[2016-04-23] MEDS ORDERED: BUDESONIDE-FORMOTEROL 80/4.5 MCG INHALER INH SCH (13:00)
--- NOTE | 2016-04-23 22:33 | EKG ---
Date Performed: 04/22/2016 Time Performed: 18:08:56 PTAGE: 65 years EKG: Atrial fibrillation Septal T wave changes are nonspecific Abnormal ECG PREVIOUS TRACING : 03/25/2016 12.41 Compared to prior tracing no significant change DOCTOR: Trey Masterson Interpretating Date/Time 04/23/2016 22:32:43
[2016-04-30] MEDS ORDERED: ZOLO100T PO (16:21)
[2016-04-30] MEDS ORDERED: MORP15TA73 (16:24)
[2016-05-08] MEDS ORDERED: DILT300C3 PO (17:09)
[2016-06-03] MEDS ORDERED: SERT-129 PO (11:24)
[2016-06-06] MEDS ORDERED: DILT300C3 PO (14:34)
[2016-06-12] MEDS ORDERED: KETO0.5S2 LEFT EYE (13:35)
[2016-06-12] MEDS ORDERED: CIPR0.3S2 LEFT EYE (13:35)
[2016-06-12] MEDS ORDERED: PRED1SUS LEFT EYE (13:35)
[2016-07-03] MEDS ORDERED: PRED1SUS LEFT EYE (14:24)
[2016-07-03] MEDS ORDERED: KETO0.5S2 LEFT EYE (14:24)
[2016-07-31] MEDS ORDERED: APIX5TAB PO (13:01)
== END 2016-04-23 13:30 | disposition home or self-care (01) ==
LOC: PHED 17:01 → PHEDA 22:36 → PH3A 04-23 00:18
PROVIDERS: ADMIT Hospitalist; ATTEND Hospitalist
DX: D64.9 Anemia, unspecified (principal); R10.11 Right upper quadrant pain; G89.29 Other chronic pain; E86.0 Dehydration; B19.20 Unspecified viral hepatitis C without hepatic coma; I10 Essential (primary) hypertension; N28.1 Cyst of kidney, acquired; J44.9 Chronic obstructive pulmonary disease, unspecified; I48.91 Unspecified atrial fibrillation; F43.10 Post-traumatic stress disorder, unspecified; K76.0 Fatty (change of) liver, not elsewhere classified; Z72.0 Tobacco use; Z79.01 Long term (current) use of anticoagulants
CPT/HCPCS: 71010; 74177; 76705; 80048; 80053; 81001; 83605; 83690; 84155; 85025; 85610; 85730; 86850; 86900; 86901; 87040; 93005; 94640; 94664; 96374; 96375; 96376; 99285; G0378; J1885; J2270; J7040; Q0177; Q9967

== ENCOUNTER 2016-04-25 13:16 | Emergency (ER) | payer MEDICARE, MEDICAID ==
[~2016-04-25] VITALS: Ht 175.3 cm; Wt 61.4 kg
[~2016-04-25 13:16] MED LIST changes: -HARVONI PO; -MORP15TA73; +PROT40TA PO
[2016-04-25 13:20] VITALS: BP 111/72; PULSE 97; RESP 16; TEMP 97.9; O2SAT 100
[2016-04-25 13:31] VITALS: BP 137/83; PULSE 97; RESP 18; O2SAT 99
[2016-04-25] MEDS ORDERED: SODIUM CHLOR 0.9% 1000 ML INJ 1,000 ML IV SCH (13:46)
[2016-04-25] MEDS ORDERED: ONDANSETRON HCL 4 MG/2 ML VIAL IVP ONE (14:00)
[2016-04-25 14:01] VITALS: O2SAT 99
[2016-04-25] MEDS: SODIUM CHLORIDE 0.9% FLUSH 5 ML FLUSH IVF PRN ×2 (14:07→14:56)
[2016-04-25 14:08] LABS: AUTOMATED NEUTROPHIL # 3.4 TH/MM3 (1.8-7.7); BASOPHIL # 0.1 TH/MM3 (0-0.2); BASOPHIL % 1.3 % (0.0-2.0); EOSINOPHIL # 0.1 TH/MM3 (0-0.4); EOSINOPHIL % 1.1 % (0.0-4.0); HEMATOCRIT 29.7 % (39.0-51.0); LYMPH % 34.7 % (9.0-44.0); LYMPHOCYTE # 2.3 TH/MM3 (1.0-4.8); MEAN CELL VOLUME 74.7 FL (80.0-100.0); MEAN CORPUSCULAR HEMOGLOBIN 22.8 PG (27.0-34.0); MEAN CORPUSCULAR HGB CONC 30.6 % (32.0-36.0); MONO % 11.2 % (0.0-8.0); NEUT % 51.7 % (16.0-70.0); PLATELET COUNT 389 TH/MM3 (150-450); RED BLOOD COUNT 3.98 MIL/MM3 (4.50-5.90); RED CELL DISTRIBUTION WIDTH 16.9 % (11.6-17.2); WHITE BLOOD COUNT 6.7 TH/MM3 (4.0-11.0)
[2016-04-25 14:09] VITALS: BP 108/62; PULSE 83; RESP 18; O2SAT 100
[2016-04-25 14:11] LABS: HEMO FLAGS AUTO DIFF
[2016-04-25] MEDS ORDERED: HYDROmorphone HCL PF 1 MG/ML VIAL IV PUSH ONE (14:15)
[2016-04-25 14:18] LABS: CHLORIDE 101 MEQ/L (98-107); SODIUM (NA) 138 MEQ/L (136-145)
[2016-04-25 14:24] LABS: ANION GAP 9 MEQ/L (5-15); BICARBONATE 27.9 MEQ/L (21.0-32.0); BLOOD UREA NITROGEN 9 MG/DL (7-18)
[2016-04-25 14:26] LABS: ALT (GPT) 32 U/L (12-78)
[2016-04-25 14:27] LABS: AST (GOT) 36 U/L (15-37); GLOMERULAR FILTRATION RATE 106 ML/MIN (>89)
[2016-04-25 14:28] LABS: TOTAL BILIRUBIN ADULT 0.3 MG/DL (0.2-1.0)
[2016-04-25 14:29] LABS: ALKALINE PHOSPHATASE 92 U/L (45-117)
[2016-04-25 14:42] LABS: ROULEAUX PRESENT (NORMAL); SCAN/DIFF AUTO DIFF CONFIRMED
[2016-04-25] MEDS ORDERED: ZOFR4TAB3 SL (14:44)
--- NOTE | 2016-04-25 14:46 | PD ---
HPI Chief Complaint: GI Complaint Time Seen by Provider: 14:14 Travel History International Travel<30 days: No Contact w/Intl Traveler<30days: No Traveled to known affect area: No History of Present Illness HPI 65-year-old male with history of multiple medical issues, recurrent abdominal pain, pancreatitis, presents to the ER today after having been admitted to the hospital released 2 days ago for recurrent abdominal pain and pancreatitis, complaining of upper abdominal and right upper quadrant abdominal pains. Nauseous, vomiting 2 today. He also has been having diarrhea, similar to complaints seen with a last visit. He states it has not changed. He states that he was given acid blocking medication but was not given any other medications. He denies any fevers, chest pains, shortness of breath, or other symptoms. He states that his current pain is a 8 out of 10. Worsens with food intake this morning. Modifying Factors: None Associated Signs & Symptoms: Upper abdominal pain, nausea, vomiting, diarrhea Risk Factors: Recurrent abdominal pains, pancreatitis history PFSH Past Medical History Hx Anticoagulant Therapy: Yes (ELIQUIS) Arthritis: Yes Asthma: No Atrial Fibrillation: Yes (WITH RVR) Autoimmune Disease: No Blood Disorders: No Anxiety: Yes ("severe") Depression: Yes (dysphoria...low grade) Heart Rhythm Problems: Yes (AFIB) Cardiovascular Problems: Yes High Cholesterol: No Chemotherapy: No Chest Pain: No Congestive Heart Failure: Yes COPD: Yes Cerebrovascular Accident: No Diabetes: No Diminished Hearing: No Deep Vein Thrombosis: Yes (RLE) Endocrine: No Gastrointestinal Disorders: Yes GERD: No Glaucoma: No Genitourinary: No Headaches: No Hepatitis: Yes (C) Hiatal Hernia: No Heparin Induced Thrombocytopen: No Hypertension: Yes Immune Disorder: No Implanted Vascular Access Dvce: Yes Kidney Stones: No Musculoskeletal: Yes (RIGHT ANKLE MULTIPLE SURGURIES, PINS AND SCREWS, CHRONIC PAIN) Neurologic: Yes Psychiatric: Yes (PTSD) Reproductive: No Respiratory: Yes Immunizations Current: Yes Migraines: No Myocardial Infarction: No Pancreatitis: Yes Pneumonia: Yes Radiation Therapy: No Renal Failure: No Seizures: No Sickle Cell Disease: No Sleep Apnea: No Thyroid Disease: No Ulcer: No Influenza Vaccination: Yes Past Surgical History Abdominal Surgery: No AICD: No Appendectomy: No Arteriovenous Shunt: No Body Medical Devices: PLATE/SCREWS FOR R/ANKLE Cardiac Surgery: No Cholecystectomy: No Ear Surgery: No Endocrine Surgery: No Eye Surgery: No Genitourinary Surgery: No Insulin Pump: No Joint Replacement: Yes (rt ankle) Neurologic Surgery: No Oral Surgery: Yes (TEETH REMOVED 2014, TONSILLECTOMY) Pacemaker: No Thoracic Surgery: No Tonsillectomy: Yes Other Surgery: Yes Social History Alcohol Use: No Tobacco Use: Yes (2 TO 3 CIGS PER DAY) Substance Use: No Allergies-Medications (Allergen,Severity, Reaction): Coded Allergies: Codeine (Verified Allergy, Severe, TURN RED, SOB, HIVES, 04/25/16) Nizoral (Verified Allergy, Intermediate, Rash, 04/25/16) ITCHING *MDRO Multi-Drug Resistant Organism (Verified Adverse Reaction, Unknown, ) Pt. reports hx MRSA. MRSA PCR Screen NEGATIVE - 10/26/14, 03/23/15 CLEARED PER INFECTION CONTROL PROTOCOL Reported Meds & Prescriptions Reported Meds & Active Scripts Active Protonix (Pantoprazole Sodium) 40 Mg Tab 40 Mg PO DAILY Eliquis (Apixaban) 5 Mg Tab 5 Mg PO BID Reported Lopressor (Metoprolol Tartrate) 50 Mg Tab 75 Mg PO BID Symbicort Inh (Budesonide/Formoterol Fumarate) 80-4.5 Mcg/Act Aero 2 Puff INH Q12HR Diltiazem CD 24 HR 300 Mg Caper 300 Mg PO DAILY Klonopin (Clonazepam) 1 Mg Tab 1 Mg PO TID Review of Systems Except as stated in HPI: all other systems reviewed are Neg Physical Exam Narrative GENERAL: Well-nourished, well-developed elderly white male patient in no acute distress. SKIN: Warm and dry. HEAD: Normocephalic. EYES: No scleral icterus. No injection or drainage. NECK: Supple, trachea midline. CARDIOVASCULAR: Regular rate and rhythm without murmurs, gallops, or rubs. RESPIRATORY: Breath sounds equal bilaterally. No accessory muscle use. GASTROINTESTINAL: Abdomen soft, upper and right upper quadrant tenderness without guarding or rebound, nondistended. MUSCULOSKELETAL: No cyanosis, or edema. BACK: Nontender without obvious deformity. No CVA tenderness. Data Data Last Documented VS Vital Signs Date Time Temp Pulse Resp B/P Pulse Ox O2 Delivery O2 Flow Rate FiO2 04/25/16 14:09 83 18 108/62 100 Room Air 04/25/16 13:20 97.9 Orders Complete Blood Count With Diff (04/25/16 13:46) Comprehensive Metabolic Panel (04/25/16 13:46) Lipase (04/25/16 13:46) Iv Access Insert/Monitor (04/25/16 13:46) Ecg Monitoring (04/25/16 13:46) Oximetry (04/25/16 13:46) Ondansetron Inj (Zofran Inj) (04/25/16 14:00) Sodium Chlor 0.9% 1000 Ml Inj (Ns 1000 M (04/25/16 13:46) Sodium Chloride 0.9% Flush (Ns Flush) (04/25/16 14:00) Hydromorphone Pf Inj (Dilaudid Pf Inj) (04/25/16 14:15) Labs Laboratory Tests Test 04/25/16 14:02 White Blood Count 6.7 TH/MM3 Red Blood Count 3.98 MIL/MM3 Hemoglobin 9.1 GM/DL Hematocrit 29.7 % Mean Corpuscular Volume 74.7 FL Mean Corpuscular Hemoglobin 22.8 PG Mean Corpuscular Hemoglobin 30.6 % Concent Red Cell Distribution Width 16.9 % Platelet Count 389 TH/MM3 Mean Platelet Volume 7.1 FL Neutrophils (%) (Auto) 51.7 % Lymphocytes (%) (Auto) 34.7 % Monocytes (%) (Auto) 11.2 % Eosinophils (%) (Auto) 1.1 % Basophils (%) (Auto) 1.3 % Neutrophils # (Auto) 3.4 TH/MM3 Lymphocytes # (Auto) 2.3 TH/MM3 Monocytes # (Auto) 0.8 TH/MM3 Eosinophils # (Auto) 0.1 TH/MM3 Basophils # (Auto) 0.1 TH/MM3 CBC Comment AUTO DIFF Sodium Level 138 MEQ/L Potassium Level 4.0 MEQ/L Chloride Level 101 MEQ/L Carbon Dioxide Level 27.9 MEQ/L Anion Gap 9 MEQ/L Blood Urea Nitrogen 9 MG/DL Creatinine 0.74 MG/DL Estimat Glomerular Filtration 106 ML/MIN Rate Random Glucose 111 MG/DL Calcium Level 8.2 MG/DL Total Bilirubin 0.3 MG/DL Aspartate Amino Transf 36 U/L (AST/SGOT) Alanine Aminotransferase 32 U/L (ALT/SGPT) Alkaline Phosphatase 92 U/L Total Protein 7.1 GM/DL Albumin 3.2 GM/DL Lipase 110 U/L MDM Medical Decision Making Medical Screen Exam Complete: Yes Emergency Medical Condition: Yes Medical Record Reviewed: Yes Interpretation(s) Laboratory Tests Test 04/25/16 14:02 Red Blood Count 3.98 MIL/MM3 (4.50-5.90) Hemoglobin 9.1 GM/DL (13.0-17.0) Hematocrit 29.7 % (39.0-51.0) Mean Corpuscular Volume 74.7 FL (80.0-100.0) Mean Corpuscular Hemoglobin 22.8 PG (27.0-34.0) Mean Corpuscular Hemoglobin 30.6 % Concent (32.0-36.0) Monocytes (%) (Auto) 11.2 % (0.0-8.0) Random Glucose 111 MG/DL (74-106) Calcium Level 8.2 MG/DL (8.5-10.1) Albumin 3.2 GM/DL (3.4-5.0) Differential Diagnosis Upper abdominal pains, nausea, vomiting, diarrheapancreatitis versus gastritis versus gastroenteritis versus dehydration versus metabolic issues versus cholecystitis Narrative Course Patient had recently been evaluated for his recurrent abdominal pain, was admitted to the hospital and released just 2 days ago. His CAT scan, ultrasounds done just 3 days ago did not reveal any signs of acute processes at that time. He has no gallstones. At this point, I do not suspect an acute cholecystitis. Lab work returns did not show any significant leukocytosis or significant dehydration or signs of pancreatitis. Patient has had extensive workup in the past. At this point, I do not suspect an acute intra-abdominal processes. It appears that suspected process was underlying gastritis. At this point, my plan would be to add further nausea treatment and have her follow -up with Dr. Mckee as previously appointed. Return for any worsening in symptoms as necessary. The plan has been discussed with the patient and he states understanding. Diagnosis Primary Impression: Recurrent abdominal pain Med/Other Pt SpecificInfo: Prescription(s) given Scripts Ondansetron Odt (Zofran Odt)4 Mg Tab4 Mg SL Q6HR PRN (Nausea/Vomiting) #7 TAB Ref 0 Prov:Lucia Helton MD 04/25/16 Disposition: 01 DISCHARGE HOME Condition: Stable SoonLucia avila MD Apr 25, 2016 14:46
[2016-04-25 14:58] VITALS: BP 96/61; PULSE 73; RESP 18; O2SAT 100
[2016-04-25 15:33] VITALS: BP 114/67
[2016-04-30] MEDS ORDERED: ZOLO100T PO (16:21)
[2016-04-30] MEDS ORDERED: MORP15TA73 (16:24)
[2016-05-08] MEDS ORDERED: DILT300C3 PO (17:09)
[2016-06-03] MEDS ORDERED: SERT-129 PO (11:24)
[2016-06-06] MEDS ORDERED: DILT300C3 PO (14:34)
[2016-06-12] MEDS ORDERED: KETO0.5S2 LEFT EYE (13:35)
[2016-06-12] MEDS ORDERED: PRED1SUS LEFT EYE (13:35)
[2016-06-12] MEDS ORDERED: CIPR0.3S2 LEFT EYE (13:35)
[2016-07-03] MEDS ORDERED: KETO0.5S2 LEFT EYE (14:24)
[2016-07-03] MEDS ORDERED: PRED1SUS LEFT EYE (14:24)
[2016-07-31] MEDS ORDERED: APIX5TAB PO (13:01)
== END 2016-04-25 15:39 | disposition home or self-care (01) ==
LOC: PHED 13:16
DX: R10.10 Upper abdominal pain, unspecified (principal); R11.2 Nausea with vomiting, unspecified; R19.7 Diarrhea, unspecified; I48.91 Unspecified atrial fibrillation; I50.9 Heart failure, unspecified; J44.9 Chronic obstructive pulmonary disease, unspecified; I10 Essential (primary) hypertension; F17.210 Nicotine dependence, cigarettes, uncomplicated; Z79.01 Long term (current) use of anticoagulants; Z86.718 Personal history of other venous thrombosis and embolism
CPT/HCPCS: 80053; 83690; 85025; 96361; 96374; 96375; 99284; J1170; J2405; J7030

== ENCOUNTER 2016-05-20 12:42 | Emergency (ER) | payer MEDICARE, MEDICAID ==
[~2016-05-20] VITALS: Ht 175.3 cm; Wt 63.2 kg
[~2016-05-20 12:42] MED LIST changes: +MORP15TA73; -MS C30TA PO; -PROT40TA PO; +ZOLO100T PO
[2016-05-20 12:51] VITALS: BP 116/68; PULSE 87; RESP 20; TEMP 97.8; O2SAT 100
[2016-06-03] MEDS ORDERED: SERT-129 PO (11:24)
[2016-06-06] MEDS ORDERED: DILT300C3 PO (14:34)
[2016-06-12] MEDS ORDERED: CIPR0.3S2 LEFT EYE (13:35)
[2016-06-12] MEDS ORDERED: PRED1SUS LEFT EYE (13:35)
[2016-06-12] MEDS ORDERED: KETO0.5S2 LEFT EYE (13:35)
[2016-07-03] MEDS ORDERED: KETO0.5S2 LEFT EYE (14:24)
[2016-07-03] MEDS ORDERED: PRED1SUS LEFT EYE (14:24)
[2016-07-31] MEDS ORDERED: APIX5TAB PO (13:01)
== END 2016-05-20 13:49 | disposition left against medical advice (07) ==
LOC: PHED 12:42
DX: R06.02 Shortness of breath (principal)
CPT/HCPCS: 99281

== ENCOUNTER → 2016-06-25 | Day surgery (SDC) | payer MEDICARE, MEDICAID ==
[~2016-06-25] VITALS: Ht 175.3 cm; Wt 61.5 kg
[~2016-06-25] MED LIST changes: +*RESP: ALBUTEROL 2.5 MG/3 ML NEB (PRN) PERIprocedural Use ONLY NEB ONE; +CIPR0.3S2 LEFT EYE; +CYCLOPENTOLATE HCL 1% OPHT SOLN 2 ML BTL ONE; +FAMOTIDINE 20 MG/2 ML VIAL ONE; +KETO0.5S2 LEFT EYE; +PHENYLEPHRINE HCL 10% OPTH SOLN 5 ML BTL ONE; +PRED1SUS LEFT EYE; +PROPOFOL 200 MG/20 ML AMP IV ONE; +RESP: ALBUTEROL CONC 2.5 MG/0.5 ML NEB ONE; +SERT-129 PO; +SODIUM CHLORID 0.9% 500 ML INJ 500 ML IV ONE; +SODIUM CHLORID 0.9% 500 ML INJ 500 ML ONE; +TETRACAINE 0.5% OPTH SOLN 2 ML BTL ONE; +TETRACAINE 0.5% OPTH SOLN 4 ML BTL ONE; +TROPICAMIDE 1% OPHT SOLN 15 ML BTL ONE; +ZITHTAB PO; -ZOLO100T PO
[2016-06-25 06:40] VITALS: BP 124/62; PULSE 84; RESP 18; TEMP 97.7; O2SAT 100
[2016-06-25] MEDS: TOBRAMYCIN/DEXAMETHASONE OPTH OINT 3.5 GM TUBE ONE ×2 (08:20→08:46)
--- NOTE | 2016-06-25 09:12 | PD.OP ---
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 He was put under general anesthesia and prepped and draped in the usual sterile fashion for ophthalmic surgery. A wire lid speculum was placed in the left eye. A paracentesis incision was created at the 5 o'clock position on the limbus. Vision blue dye and viscoelastic was injected into the anterior chamber. The main incision was created at the 2 o'clock position on the limbus with a 2.4 mm keratome. A continuous curvilinear capsulorrhexis was made on the anterior lens capsule. Hydrodissection was used to separate the nucleus from the capsule. Phacoemulsification was used to remove the lens nucleus material. Irrigation and aspiration was used to remove the remaining cortical material. The lens implant ([id number]) was placed in the capsular bag. Viscoelastic was removed with irrigation and aspiration. The incisions were irrigated and found to be watertight. Tobradex ointment, a patch, and shield were placed on the left eye. The patient was sent to PACU in stable condition. Tash Cheung MD Jun 25, 2016 09:12
[2016-06-25 10:15] VITALS: BP 119/68; PULSE 72; RESP 16; TEMP 98; O2SAT 100
== END | disposition home or self-care (01) ==
LOC: PHSDC 06:10
PROVIDERS: ATTEND Ophthalmology
DX: H25.012 Cortical age-related cataract, left eye (principal); I48.91 Unspecified atrial fibrillation; J44.9 Chronic obstructive pulmonary disease, unspecified; Z72.0 Tobacco use
CPT/HCPCS: 00142; 66984; 94664; J7040; J7613; V2632; J7611

== ENCOUNTER 2016-07-25 11:21 | Emergency (ER) | payer MEDICARE, MEDICAID ==
[~2016-07-25] VITALS: Ht 175.3 cm; Wt 58.8 kg
[~2016-07-25 11:21] MED LIST changes: -*RESP: ALBUTEROL 2.5 MG/3 ML NEB (PRN) PERIprocedural Use ONLY NEB ONE; -CIPR0.3S2 LEFT EYE; -CYCLOPENTOLATE HCL 1% OPHT SOLN 2 ML BTL ONE; -FAMOTIDINE 20 MG/2 ML VIAL ONE; -KETO0.5S2 LEFT EYE; -METO-309 PO; -PHENYLEPHRINE HCL 10% OPTH SOLN 5 ML BTL ONE; -PRED1SUS LEFT EYE; -PROPOFOL 200 MG/20 ML AMP IV ONE; -RESP: ALBUTEROL CONC 2.5 MG/0.5 ML NEB ONE; -SODIUM CHLORID 0.9% 500 ML INJ 500 ML IV ONE; -SODIUM CHLORID 0.9% 500 ML INJ 500 ML ONE; -TETRACAINE 0.5% OPTH SOLN 2 ML BTL ONE; -TETRACAINE 0.5% OPTH SOLN 4 ML BTL ONE; -TROPICAMIDE 1% OPHT SOLN 15 ML BTL ONE; -ZITHTAB PO
[2016-07-25 11:34] VITALS: BP 144/87; PULSE 89; RESP 22; TEMP 98.7; O2SAT 100
[2016-07-25] MEDS ORDERED: METO-309 PO (11:45)
[2016-07-25] MEDS ORDERED: ZITHTAB PO (12:17)
--- NOTE | 2016-07-25 12:19 | PD ---
HPI Chief Complaint: Cold / Flu Symptoms Time Seen by Provider: 11:53 Travel History International Travel<30 days: No Contact w/Intl Traveler<30days: No Traveled to known affect area: No History of Present Illness HPI This patient complains of cough. He normally has a chronic cough with clear phlegm but now is bringing up some yellowish tinged phlegm with also a bit of blood tinge in it. She denies fever. He has COPD and still smokes. He is not short of breath. Symptoms severity is mild PFSH Past Medical History Hx Anticoagulant Therapy: Yes (ELAQUIS) Arthritis: Yes Asthma: No Atrial Fibrillation: Yes (WITH RVR) Autoimmune Disease: No Blood Disorders: No Anxiety: Yes ("severe") Depression: Yes (dysphoria...low grade) Heart Rhythm Problems: Yes (AFIB) Cardiovascular Problems: Yes (CHF, AFIB) High Cholesterol: No Chemotherapy: No Chest Pain: No Congestive Heart Failure: Yes COPD: Yes Cerebrovascular Accident: No Diabetes: No Diminished Hearing: No Deep Vein Thrombosis: Yes (RLE) Endocrine: No Gastrointestinal Disorders: Yes GERD: No Glaucoma: No Genitourinary: No Headaches: No Hepatitis: Yes (C) Hiatal Hernia: No Heparin Induced Thrombocytopen: No Hypertension: Yes Immune Disorder: No Implanted Vascular Access Dvce: Yes Kidney Stones: No Musculoskeletal: Yes (RIGHT ANKLE MULTIPLE SURGERIES, PINS AND SCREWS, CHRONIC PAIN) Neurologic: Yes Psychiatric: Yes (PTSD) Reproductive: No Respiratory: Yes (COPD) Immunizations Current: Yes Migraines: No Myocardial Infarction: No Pancreatitis: Yes Pneumonia: Yes Radiation Therapy: No Renal Failure: No Seizures: No Sickle Cell Disease: No Sleep Apnea: No Thyroid Disease: No Ulcer: No Past Surgical History Abdominal Surgery: No AICD: No Appendectomy: No Arteriovenous Shunt: No Body Medical Devices: PLATE/SCREWS FOR R/ANKLE Cardiac Surgery: No Cholecystectomy: No Ear Surgery: No Endocrine Surgery: No Eye Surgery: No Genitourinary Surgery: No Insulin Pump: No Joint Replacement: Yes (rt ankle) Neurologic Surgery: No Oral Surgery: Yes (TEETH REMOVED 2014, TONSILLECTOMY) Pacemaker: No Thoracic Surgery: No Tonsillectomy: Yes Other Surgery: Yes Social History Alcohol Use: No Tobacco Use: Yes (2 TO 3 CIGS PER DAY) Substance Use: No Allergies-Medications (Allergen,Severity, Reaction): Coded Allergies: Codeine (Verified Allergy, Severe, TURN RED, SOB, HIVES, 07/25/16) Nizoral (Verified Allergy, Intermediate, Rash, 07/25/16) ITCHING *MDRO Multi-Drug Resistant Organism (Verified Adverse Reaction, Unknown, ) Pt. reports hx MRSA. MRSA PCR Screen NEGATIVE - 10/26/14, 03/23/15 CLEARED PER INFECTION CONTROL PROTOCOL Reported Meds & Prescriptions Reported Meds & Active Scripts Active Zithromax Z-Ad (Azithromycin) 250 Mg Dspk 250 Mg PO DIRECTED 500 MG (2 tabs) day 1, then 1 tab days 2-5. Diltiazem CD 24 HR 300 Mg Caper 300 Mg PO DAILY Eliquis (Apixaban) 5 Mg Tab 5 Mg PO BID Reported Lopressor (Metoprolol Tartrate) 50 Mg Tab 75 Mg PO BID Morphine Sulfate CR (Morphine Sulfate) 15 Mg Tab TID Symbicort Inh (Budesonide/Formoterol Fumarate) 80-4.5 Mcg/Act Aero 2 Puff INH Q12HR Klonopin (Clonazepam) 1 Mg Tab 1 Mg PO TID Review of Systems General / Constitutional: Positive: Chills, No: Fever HENT: No: Headaches Respiratory: Positive: Cough Physical Exam Narrative RESPIRATORY: Respiratory effort unlabored, no retractions or use of accessory muscles. Breath sounds are clear and symmetric. NECK: Symmetrical appearance, midline trachea. No mass or crepitus. Thyroid without enlargement, tenderness, or mass. GASTROINTESTINAL: Abdomen soft, non-tender, nondistended. Positive bowel sounds. No hepato-splenomegaly, or palpable masses. No guarding. Data Data Last Documented VS Vital Signs Date Time Temp Pulse Resp B/P Pulse Ox O2 Delivery O2 Flow Rate FiO2 07/25/16 11:34 98.7 89 22 144/87 100 MDM Medical Decision Making Medical Screen Exam Complete: Yes Emergency Medical Condition: Yes Medical Record Reviewed: Yes Differential Diagnosis Bronchitis, pneumonia, COPD Narrative Course I have reviewed the patient's electronic medical record. I prescribed a course of Zithromax. He needs to quit smoking. He will follow- up with his insolvency consultant. Diagnosis Primary Impression: Bronchitis Additional Instructions: The patient was advised to follow up with their physician and return if they worsen. Stop smoking Med/Other Pt SpecificInfo: Prescription(s) given Scripts Azithromycin (Zithromax Z-Ad)250 Mg [id number] Mg PO DIRECTED #1 DSPK Ref 0 500 MG (2 tabs) day 1, then 1 tab days 2-5. Prov:Edgardo Hays MD 07/25/16 Disposition: 01 DISCHARGE HOME Condition: Stable Edgardo Hays MD July 25, 2016 12:19
[2016-07-31] MEDS ORDERED: APIX5TAB PO (13:01)
== END 2016-07-25 12:29 | disposition home or self-care (01) ==
LOC: PHED 11:21
DX: J40 Bronchitis, not specified as acute or chronic (principal); R09.3 Abnormal sputum; I10 Essential (primary) hypertension; Z72.0 Tobacco use; Z79.01 Long term (current) use of anticoagulants; Z87.09 Personal history of other diseases of the respiratory system; Z87.39 Personal history of other diseases of the musculoskeletal system and connective tissue; Z86.79 Personal history of other diseases of the circulatory system; Z86.59 Personal history of other mental and behavioral disorders; Z86.718 Personal history of other venous thrombosis and embolism; Z87.19 Personal history of other diseases of the digestive system; Z86.19 Personal history of other infectious and parasitic diseases; Z86.69 Personal history of other diseases of the nervous system and sense organs
CPT/HCPCS: 99283

== ENCOUNTER 2016-10-11 18:36 | Emergency (ER) | payer MEDICARE, MEDICAID ==
[~2016-10-11 18:36] MED LIST changes: +METO-309 PO; -SERT-129 PO
[2016-10-11 18:42] VITALS: BP 123/66; PULSE 68; RESP 20; TEMP 98.2; O2SAT 100
[2016-10-11] MEDS ORDERED: SODIUM CHLORIDE 0.9% FLUSH 10 ML FLUSH IV FLUSH PRN (19:00)
[2016-10-11] MEDS ORDERED: MORP60TA24 PO (19:21)
[2016-10-11 19:23] VITALS: O2SAT 100
--- NOTE | 2016-10-11 19:30 | PD ---
HPI Chief Complaint: Numbness/Tingling Time Seen by Provider: 18:49 Travel History International Travel<30 days: No Contact w/Intl Traveler<30days: No Traveled to known affect area: No History of Present Illness HPI 66-year-old male with history of A. fib on Eliquis, lung mass, chronic right ankle pain, here for evaluation of bilateral foot numbness, and feeling as though his feet are heavy, causing difficulty with ambulation. Symptoms started 2 days ago and have been progressively worsening. The patient reports having chronic numbness to his right foot, however he started having numbness to his left foot 2 days ago, and symptoms have been progressively worsening. He denies trauma. He occasionally has lower back pain that radiates down his right leg. The reason the patient has chronic right foot pain/numbness is because he had a complicated fracture of the right foot/ankle that required several surgeries. He reports history of neuropathy, however he states he has been on several different medications that have not helped with these symptoms. He has noted that his urine is darker than usual, however denies dysuria or hematuria. No fevers. PFSH Past Medical History Hx Anticoagulant Therapy: Yes (ELAQUIS) Arthritis: Yes Asthma: No Atrial Fibrillation: Yes (WITH RVR) Autoimmune Disease: No Blood Disorders: No Anxiety: Yes ("severe") Depression: Yes (dysphoria...low grade) Heart Rhythm Problems: Yes (AFIB) Cardiovascular Problems: Yes (CHF, AFIB) High Cholesterol: No Chemotherapy: No Chest Pain: No Congestive Heart Failure: Yes COPD: Yes Cerebrovascular Accident: No Diabetes: No Diminished Hearing: No Deep Vein Thrombosis: Yes (RLE) Endocrine: No Gastrointestinal Disorders: Yes GERD: No Glaucoma: No Genitourinary: No Headaches: No Hepatitis: Yes (C) Hiatal Hernia: No Heparin Induced Thrombocytopen: No Hypertension: Yes Immune Disorder: No Implanted Vascular Access Dvce: Yes Kidney Stones: No Musculoskeletal: Yes (RIGHT ANKLE MULTIPLE SURGERIES, PINS AND SCREWS, CHRONIC PAIN) Neurologic: Yes Psychiatric: Yes (PTSD) Reproductive: No Respiratory: Yes (COPD) Immunizations Current: Yes Migraines: No Myocardial Infarction: No Pancreatitis: Yes Pneumonia: Yes Radiation Therapy: No Renal Failure: No Seizures: No Sickle Cell Disease: No Sleep Apnea: No Thyroid Disease: No Ulcer: No Past Surgical History Abdominal Surgery: No AICD: No Appendectomy: No Arteriovenous Shunt: No Body Medical Devices: PLATE/SCREWS FOR R/ANKLE Cardiac Surgery: No Cholecystectomy: No Ear Surgery: No Endocrine Surgery: No Eye Surgery: No Genitourinary Surgery: No Insulin Pump: No Joint Replacement: Yes (rt ankle) Neurologic Surgery: No Oral Surgery: Yes (TEETH REMOVED 2014, TONSILLECTOMY) Pacemaker: No Thoracic Surgery: No Tonsillectomy: Yes Other Surgery: Yes Social History Alcohol Use: No Tobacco Use: Yes (2 TO 3 CIGS PER DAY) Substance Use: No Allergies-Medications (Allergen,Severity, Reaction): Coded Allergies: Codeine (Verified Allergy, Severe, TURN RED, SOB, HIVES, 10/11/16) Nizoral (Verified Allergy, Intermediate, Rash, 10/11/16) ITCHING *MDRO Multi-Drug Resistant Organism (Verified Adverse Reaction, Unknown, ) Pt. reports hx MRSA. MRSA PCR Screen NEGATIVE - 10/26/14, 03/23/15 CLEARED PER INFECTION CONTROL PROTOCOL Reported Meds & Prescriptions Reported Meds & Active Scripts Active Eliquis (Apixaban) 5 Mg Tab 5 Mg PO BID Diltiazem CD 24 HR 300 Mg Caper 300 Mg PO DAILY Reported Morphine Sulfate CR (Morphine Sulfate) 60 Mg Tab 15 Mg PO QID Lopressor (Metoprolol Tartrate) 50 Mg Tab 75 Mg PO BID Symbicort Inh (Budesonide/Formoterol Fumarate) 80-4.5 Mcg/Act Aero 2 Puff INH Q12HR Klonopin (Clonazepam) 1 Mg Tab 1 Mg PO TID Review of Systems Except as stated in HPI: all other systems reviewed are Neg Physical Exam Narrative GENERAL: Well-developed, well-nourished, awake, alert, no apparent distress. SKIN: Focused skin assessment warm/dry. No rash. HEAD: Atraumatic. Normocephalic. EYES: Pupils equal and round. No scleral icterus. No injection or drainage. ENT: Mucous membranes pink and moist. NECK: Trachea midline. No JVD. CARDIOVASCULAR: Regular rate and rhythm. Bilateral dorsalis pedis pulses are brisk and equal. RESPIRATORY: No accessory muscle use. Clear to auscultation. Breath sounds equal bilaterally. GASTROINTESTINAL: Abdomen soft, non-tender, nondistended. MUSCULOSKELETAL: Right foot/ankle externally rotated. Patient does appear to have weakness in bilateral lower extremities at the foot/ankle, knee and thigh. Bilateral feet are warm with normal capillary refill. No midline vertebral step-off or tenderness. There is slight right lumbar spine paraspinal tenderness. No lower extremity edema. Bilateral calves are supple. NEUROLOGICAL: Awake and alert. No obvious cranial nerve deficits. Diminished patellar tendon reflexes bilaterally. Normal speech. Great toe extension present bilaterally. PSYCHIATRIC: Appropriate mood and affect; insight and judgment normal. Data Data Last Documented VS Vital Signs Date Time Temp Pulse Resp B/P Pulse Ox O2 Delivery O2 Flow Rate FiO2 10/11/16 21:13 20 10/11/16 21:10 60 114/72 100 Room Air 10/11/16 18:42 98.2 Orders Complete Blood Count With Diff (10/11/16 18:58) Comprehensive Metabolic Panel (10/11/16 18:58) Prothrombin Time / Inr (Pt) (10/11/16 18:58) Act Partial Throm Time (Ptt) (10/11/16 18:58) Urinalysis - C+S If Indicated (10/11/16 18:58) Iv Access Insert/Monitor (10/11/16 18:58) Ecg Monitoring (10/11/16 18:58) Oximetry (10/11/16 18:58) Sodium Chloride 0.9% Flush (Ns Flush) (10/11/16 19:00) Electrocardiogram (10/11/16 18:58) Creatine Kinase (Cpk) (10/11/16 18:58) Ct Brain W/O Iv Contrast(Rout) (10/11/16 ) Ct Lumb Spine W/O Contrast (10/11/16 ) Morphine Inj (Morphine Inj) (10/11/16 21:00) Labs Laboratory Tests Test 10/11/16 10/11/16 20:15 20:55 White Blood Count 7.4 TH/MM3 Red Blood Count 4.48 MIL/MM3 Hemoglobin 10.3 GM/DL Hematocrit 32.8 % Mean Corpuscular Volume 73.2 FL Mean Corpuscular Hemoglobin 23.1 PG Mean Corpuscular Hemoglobin 31.5 % Concent Red Cell Distribution Width 20.6 % Platelet Count 259 TH/MM3 Mean Platelet Volume 7.9 FL Neutrophils (%) (Auto) 48.1 % Lymphocytes (%) (Auto) 40.5 % Monocytes (%) (Auto) 9.7 % Eosinophils (%) (Auto) 0.6 % Basophils (%) (Auto) 1.1 % Neutrophils # (Auto) 3.5 TH/MM3 Lymphocytes # (Auto) 3.0 TH/MM3 Monocytes # (Auto) 0.7 TH/MM3 Eosinophils # (Auto) 0.0 TH/MM3 Basophils # (Auto) 0.1 TH/MM3 CBC Comment AUTO DIFF Differential Comment AUTO DIFF CONFIRMED Platelet Estimate NORMAL Platelet Morphology Comment NORMAL Ovalocytes 1+ Prothrombin Time 11.8 SEC Prothromb Time International 1.1 RATIO Ratio Activated Partial 29.5 SEC Thromboplast Time Sodium Level 137 MEQ/L Potassium Level 3.7 MEQ/L Chloride Level 103 MEQ/L Carbon Dioxide Level 27.5 MEQ/L Anion Gap 7 MEQ/L Blood Urea Nitrogen 9 MG/DL Creatinine 0.75 MG/DL Estimat Glomerular Filtration 105 ML/MIN Rate Random Glucose 78 MG/DL Calcium Level 8.3 MG/DL Total Bilirubin 0.3 MG/DL Aspartate Amino Transf 59 U/L (AST/SGOT) Alanine Aminotransferase 65 U/L (ALT/SGPT) Alkaline Phosphatase 92 U/L Total Creatine Kinase 147 U/L Total Protein 7.0 GM/DL Albumin 3.1 GM/DL Urine Color YELLOW Urine Turbidity CLEAR Urine pH 6.0 Urine Specific [place] 1.014 Urine Protein NEG mg/dL Urine Glucose (UA) NEG mg/dL Urine Ketones NEG mg/dL Urine Occult Blood NEG Urine Nitrite NEG Urine Bilirubin NEG Urine Leukocyte Esterase NEG Urine Squamous Epithelial 0-5 /hpf Cells Urine Calcium Oxalate Crystals MANY /hpf Urine Mucus OCC /lpf Microscopic Urinalysis Comment CULT NOT INDICATED MDM Medical Decision Making Medical Screen Exam Complete: Yes Emergency Medical Condition: Yes Interpretation(s) EKG: A. fib, rate 56, normal axis, no acute ischemic abnormality. Differential Diagnosis Neuropathy, metabolic abnormality, intracranial abnormality, spinal cord compression less likely Narrative Course Vital signs show heart rate 68, blood pressure 123/66, pulse ox 100% on room air , oral temp of 98.2F. CBC is remarkable for hemoglobin 10.3, hematocrit 32.8, MCV 73.2, MCH 23. This is around his baseline. CMP is unremarkable. UA shows calcium oxalate crystals, otherwise within normal limits. CT head: Negative noncontrast CT brain: CT lumbar spine: Negative CT of the lumbar spine. While in the emergency department the patient began requesting pain medication for his chronic pain for which he takes morphine 15 mg 4 times a day. According to my nurse, the patient ran out of this prescription at around 1:00 PM today. Patient was made aware of all findings. He is resting comfortably. He does move his bilateral legs. I believe his symptoms are from neuropathy/ neuropathic pain. At this point I believe he can be further worked up as an outpatient with his primary care physician. He tells me he is not too happy with his primary care physician and is trying to find a new one. I will given the name of the neurologist on-call whom he can try to make an appointment with regarding his symptoms. He was informed on when to return to the emergency department. He verbalizes understanding and agreement with plan. Procedures Procedure Narrative Ultrasound-guided peripheral IV: Because of difficult IV access, I was asked by my nurse to place an ultrasound- guided IV. Using linear ultrasound probe, a 20-gauge IV catheter was placed in left arm. The site was prepped with ChloraPrep prior to insertion. Tolerated well. No complications. Diagnosis Primary Impression: Neuropathy Additional Impression: Chronic pain Qualified Code: G89.29 - Other chronic pain Referrals: Braden Funes MD 3 days Primary Care Physician 3 days Additional Instructions: Follow-up with your primary care physician this week. Follow-up with neurologist Dr. Funes or a neurologist of your choice this week. Return to the emergency department for worsening symptoms or any other concerns. Disposition: 01 DISCHARGE HOME Condition: Stable Glynn Lacey MD Oct 11, 2016 19:30
[2016-10-11 20:23] LABS: AUTOMATED NEUTROPHIL # 3.5 TH/MM3 (1.8-7.7); BASOPHIL # 0.1 TH/MM3 (0-0.2); BASOPHIL % 1.1 % (0.0-2.0); EOSINOPHIL % 0.6 % (0.0-4.0); HEMATOCRIT 32.8 % (39.0-51.0); LYMPH % 40.5 % (9.0-44.0); MEAN CELL VOLUME 73.2 FL (80.0-100.0); MEAN CORPUSCULAR HEMOGLOBIN 23.1 PG (27.0-34.0); MEAN CORPUSCULAR HGB CONC 31.5 % (32.0-36.0); MONO % 9.7 % (0.0-8.0); NEUT % 48.1 % (16.0-70.0); PLATELET COUNT 259 TH/MM3 (150-450); RED BLOOD COUNT 4.48 MIL/MM3 (4.50-5.90); RED CELL DISTRIBUTION WIDTH 20.6 % (11.6-17.2); WHITE BLOOD COUNT 7.4 TH/MM3 (4.0-11.0)
[2016-10-11 20:27] VITALS: BP 105/65; PULSE 65; RESP 18; O2SAT 100
[2016-10-11 20:29] LABS: CHLORIDE 103 MEQ/L (98-107); POTASSIUM 3.7 MEQ/L (3.5-5.1); SODIUM (NA) 137 MEQ/L (136-145)
[2016-10-11 20:32] LABS: HEMO FLAGS AUTO DIFF
[2016-10-11 20:33] LABS: ANION GAP 7 MEQ/L (5-15); BICARBONATE 27.5 MEQ/L (21.0-32.0); BLOOD UREA NITROGEN 9 MG/DL (7-18)
[2016-10-11 20:35] LABS: APTT (PATIENT) 29.5 SEC (24.3-30.1); INTERNATIONAL NORMALIZED RATIO 1.1 RATIO; PROTHROMBIN TIME - PATIENT 11.8 SEC (9.8-11.6)
[2016-10-11 20:36] LABS: ALT (GPT) 65 U/L (12-78); AST (GOT) 59 U/L (15-37); GLOMERULAR FILTRATION RATE 105 ML/MIN (>89)
[2016-10-11 20:38] LABS: TOTAL BILIRUBIN ADULT 0.3 MG/DL (0.2-1.0)
[2016-10-11 20:39] LABS: ALKALINE PHOSPHATASE 92 U/L (45-117); CREATINE KINASE 147 U/L (39-308)
--- NOTE | 2016-10-11 20:48 | RADRPT ---
EXAM DATE/TIME: 10/11/2016 20:23 [facility] COMPARISON: No previous studies available for comparison. INDICATIONS : Bilateral foot numbness for 3 days. RADIATION DOSE: 61.31 CTDIvol (mGy) MEDICAL HISTORY : Congestive hearrt failure. SURGICAL HISTORY : Tonsillectomy. ENCOUNTER: Initial ACUITY: 3 days PAIN SCALE: 0/10 LOCATION: Bilateral extremities TECHNIQUE: Multiple contiguous axial images were obtained of the head. Using automated exposure control and adj ustment of the mA and/or kV according to patient size, radiation dose was kept as low as reasonably a chievable to obtain optimal diagnostic quality images. DICOM format image data is available electro nically for review and comparison. FINDINGS: CEREBRUM: The ventricles are normal for age. No evidence of midline shift, mass lesion, hemorrhage or acute in farction. No extra-axial fluid collections are seen. POSTERIOR FOSSA: The cerebellum and brainstem are intact. The 4th ventricle is midline. The cerebellopontine angle i s unremarkable. EXTRACRANIAL: The visualized portion of the orbits is intact. SKULL: The calvaria is intact. No evidence of skull fracture. CONCLUSION: Negative noncontrast CT brain. Blane Stevens MD on October 11, 2016 at 20:45 Board Certified Radiologist. This report was verified electronically.
[2016-10-11 20:54] LABS: OVALOCYTES 1+ (NORMAL); PLATELET ESTIMATE SMEAR NORMAL (NORMAL); PLATELET MORPHOLOGY NORMAL (NORMAL); SCAN/DIFF AUTO DIFF CONFIRMED
[2016-10-11] MEDS ORDERED: MORPHINE SULFATE 4 MG/ML INJ IV PUSH ONE (21:00)
[2016-10-11 21:10] VITALS: BP 114/72; PULSE 60; RESP 18; O2SAT 100
[2016-10-11 21:13] VITALS: RESP 20
--- NOTE | 2016-10-11 21:20 | RADRPT ---
EXAM DATE/TIME: 10/11/2016 20:29 [facility] COMPARISON: No previous studies available for comparison. INDICATIONS : Bilateral foot numbness since RADIATION DOSE: 22.84 CTDIvol (mGy) MEDICAL HISTORY : Chronic obstructive pulmonary disease. Congestive heart failure. SURGICAL HISTORY : Tonsillectomy. ENCOUNTER: Initial ACUITY: 3 days PAIN SCALE: 8/10 LOCATION: Bilateral flank TECHNIQUE: Volumetric scanning of the lumbar spine was performed. Multiplanar reconstructions in the sagittal, coronal and oblique axial planes were performed. Using automated exposure control and adjustment of the mA and/or kV according to patient size, radiation dose was kept as low as reasonably achievable t o obtain optimal diagnostic quality images. DICOM format image data is available electronically for review and comparison. FINDINGS: Vascular calcification and nondistended abdominal aorta. VERTEBRAE: Normal vertebral body height. ALIGNMENT: No evidence of subluxation. T12-L1: The thecal sac has a normal diameter. No evidence of disc bulge or protrusion. The neural foramina are patent bilaterally. L1-L2: The thecal sac has a normal diameter. No evidence of disc bulge or protrusion. The neural foramina are patent bilaterally. L2-L3: The thecal sac has a normal diameter. No evidence of disc bulge or protrusion. The neural foramina are patent bilaterally. L3-L4: The thecal sac has a normal diameter. No evidence of disc bulge or protrusion. The neural foramina are patent bilaterally. L4-L5: The thecal sac has a normal diameter. No evidence of disc bulge or protrusion. The neural foramina are patent bilaterally. L5-S1: The thecal sac has a normal diameter. No evidence of disc bulge or protrusion. The neural foramina are patent bilaterally. CONCLUSION: Negative CT of the lumbar spine. Blane Stevens MD on October 11, 2016 at 21:16 Board Certified Radiologist. This report was verified electronically.
[2016-10-11 21:21] LABS: BLOOD, URINE NEG (NEG); GLUCOSE,URINE NEG (NEG); KETONE, URINE NEG (NEG); NITRITE,URINE NEG (NEG)
[2016-10-11 21:30] LABS: URINE COLOR YELLOW (YELLW/STRAW)
[2016-10-11 21:31] LABS: SQUAMOUS EPITHELIAL CELL URINE 0-5 /hpf (0-5)
[2016-10-11 21:32] LABS: CALCIUM OXALATE CRYSTALS,URINE MANY /hpf; MUCUS URINE OCC /lpf (OCC)
[2016-10-11 21:33] LABS: COMMENT (UR) CULT NOT INDICATED; CULTURE IF INDICATED CULT NOT INDICATED
[2016-10-11 21:58] VITALS: BP 110/67
--- NOTE | 2016-10-12 15:46 | EKG ---
Date Performed: 10/11/2016 Time Performed: 19:31:12 PTAGE: 66 years EKG: ATRIAL FIBRILLATION WITH SLOW VENTRICULAR RESPONSE ABNORMAL RHYTHM ECG PREVIOUS TRACING : 04/22/2016 18.08 Compared to previous tracing, heart rate is somewhat slower , otherwise no significant change. DOCTOR: Ramirez Abbott Interpretating Date/Time 10/12/2016 15:45:10
== END 2016-10-11 22:21 | disposition home or self-care (01) ==
LOC: PHED 18:36
DX: G62.9 Polyneuropathy, unspecified (principal); G89.29 Other chronic pain; M25.571 Pain in right ankle and joints of right foot; R94.31 Abnormal electrocardiogram [ECG] [EKG]; I10 Essential (primary) hypertension; Z72.0 Tobacco use; Z79.01 Long term (current) use of anticoagulants; Z86.69 Personal history of other diseases of the nervous system and sense organs; Z87.39 Personal history of other diseases of the musculoskeletal system and connective tissue; Z86.79 Personal history of other diseases of the circulatory system; Z87.09 Personal history of other diseases of the respiratory system; Z86.59 Personal history of other mental and behavioral disorders; Z87.19 Personal history of other diseases of the digestive system; Z86.718 Personal history of other venous thrombosis and embolism
CPT/HCPCS: 70450; 72131; 80053; 81001; 82550; 85025; 85610; 85730; 93005; 96374; 99285; J2270

== ENCOUNTER 2016-11-05 11:03 | Emergency (ER) | payer MEDICARE, MEDICAID ==
[~2016-11-05] VITALS: Ht 175.3 cm; Wt 58.4 kg
[~2016-11-05 11:03] MED LIST changes: -MORP15TA73; +MORP60TA24 PO
[2016-11-05 11:15] VITALS: BP 139/71; PULSE 110; RESP 18; TEMP 98.4; O2SAT 100
[2016-11-05] MEDS ORDERED: methylPREDNISolone SOD SUCC 125 MG/2 ML VIAL IVP ONE (11:30)
[2016-11-05] MEDS ORDERED: SODIUM CHLORIDE 0.9% FLUSH 10 ML FLUSH IVF PRN (11:30)
[2016-11-05] MEDS ORDERED: RESP: ALBUTEROL 2.5 MG/IPRATROPIUM 0.5 MG NEB (SCH) INH ONE (11:30)
[2016-11-05] MEDS ORDERED: MULTTAB67 PO (11:34)
[2016-11-05] MEDS ORDERED: FLUT1INH INH (11:34)
[2016-11-05] MEDS ORDERED: LACTCAP8 PO (11:34)
--- NOTE | 2016-11-05 12:00 | RADRPT ---
EXAM DATE/TIME: 11/05/2016 11:34 [facility] COMPARISON: CT PULMONARY ANGIOGRAM, July 09, 2015, 13:22. CHEST SINGLE AP, March 25, 2016, 13:20. CHEST SING LE AP, April 22, 2016, 18:29. INDICATIONS : Short of breath MEDICAL HISTORY : Chronic obstructive pulmonary disease. Emphysema. Left lung mass SURGICAL HISTORY : None. ENCOUNTER: Initial ACUITY: 2 days PAIN SCORE: 4/10 LOCATION: Bilateral chest FINDINGS: A single view of the chest demonstrates biapical emphysematous changes. A rounded density in the left upper lung image 3.9 x 2.5 cm with an additional rounded density in the region of the left lingula. Both of these were present previously and appear to correspond to areas of pleural-parenchymal scarri ng on prior CT. Right lung remains clear of acute infiltrate. Heart size is normal. Osseous structure s are intact CONCLUSION: 1. Two areas of parenchymal density in the left upper lung and left lingular region, unchanged from p rior. On prior CT, these appear to correspond to areas of pleural-parenchymal scarring. 2. Stable emphysematous changes, most prominent in the upper lungs. Lake Pritchett MD on November 05, 2016 at 11:51 Board Certified Radiologist. This report was verified electronically.
--- NOTE | 2016-11-05 12:02 | PD ---
HPI Chief Complaint: Edema Time Seen by Provider: 11:29 Travel History International Travel<30 days: No Contact w/Intl Traveler<30days: No Traveled to known affect area: No History of Present Illness HPI 43-year-old male arrives with a few days of increasing bilateral lower extremity swelling. He elevated his feet for most the day yesterday which helped significantly. He describes some chronic pain in the bilateral lower extremities and some weakness lately having fallen a few times. He was undergoing physical therapy at home however that has since stopped due to insurance related causes. He reports orthopnea and dyspnea on exertion lately. He has a history of COPD and CHF. He reports having recently switched to Breo. He denies chest pain and fever. PFSH Past Medical History Hx Anticoagulant Therapy: Yes ([facility]) Arthritis: Yes Asthma: No Atrial Fibrillation: Yes Autoimmune Disease: No Blood Disorders: No Anxiety: Yes ("severe") Depression: Yes (dysphoria...low grade) Heart Rhythm Problems: Yes (AFIB) Cardiovascular Problems: Yes (CHF, AFIB) High Cholesterol: No Chemotherapy: No Chest Pain: No Congestive Heart Failure: Yes COPD: Yes Cerebrovascular Accident: No Diabetes: No Diminished Hearing: No Deep Vein Thrombosis: Yes (RLE) Endocrine: No Gastrointestinal Disorders: Yes GERD: No Glaucoma: No Genitourinary: No Headaches: No Hepatitis: Yes (C) Hiatal Hernia: No Heparin Induced Thrombocytopen: No Hypertension: Yes Immune Disorder: No Implanted Vascular Access Dvce: Yes Kidney Stones: No Musculoskeletal: Yes (RIGHT ANKLE MULTIPLE SURGERIES, PINS AND SCREWS, CHRONIC PAIN) Neurologic: Yes Psychiatric: Yes (PTSD) Reproductive: No Respiratory: Yes (COPD) Immunizations Current: Yes Migraines: No Myocardial Infarction: No Pancreatitis: Yes Pneumonia: Yes Radiation Therapy: No Renal Failure: No Seizures: No Sickle Cell Disease: No Sleep Apnea: No Thyroid Disease: No Ulcer: No Past Surgical History Abdominal Surgery: No AICD: No Appendectomy: No Arteriovenous Shunt: No Body Medical Devices: PLATE/SCREWS FOR R/ANKLE Cardiac Surgery: No Cholecystectomy: No Ear Surgery: No Endocrine Surgery: No Eye Surgery: No Genitourinary Surgery: No Insulin Pump: No Joint Replacement: Yes (rt ankle) Neurologic Surgery: No Oral Surgery: Yes (TEETH REMOVED 2014, TONSILLECTOMY) Pacemaker: No Thoracic Surgery: No Tonsillectomy: Yes Other Surgery: Yes (left eye ) Social History Alcohol Use: No Tobacco Use: Yes (2 TO 3 CIGS PER DAY) Substance Use: No Allergies-Medications (Allergen,Severity, Reaction): Coded Allergies: codeine (Unverified Allergy, Severe, TURN RED, SOB, HIVES, 11/05/16) ketoconazole (Unverified Allergy, Intermediate, Rash, 11/05/16) ITCHING *MDRO Multi-Drug Resistant Organism (Verified Adverse Reaction, Unknown, ) Pt. reports hx MRSA. MRSA PCR Screen NEGATIVE - 10/26/14, 03/23/15 CLEARED PER INFECTION CONTROL PROTOCOL Reported Meds & Prescriptions Reported Meds & Active Scripts Active Prednisone 20 Mg Tab 20 Mg PO DAILY 4 Days Lasix (Furosemide) 20 Mg Tab 20 Mg PO DAILY 7 Days Eliquis (Apixaban) 5 Mg Tab 5 Mg PO BID Diltiazem CD 24 HR 300 Mg Caper 300 Mg PO DAILY Reported Multiple Vitamin 1 Tab 1 Tab PO DAILY Probiotic (Lactobacillus Acidophilus) 1 Cap Cap 1 Cap PO TIDAC Breo Ellipta Inh (Fluticasone/Vilanterol) 100-25 Mcg/Act Inh 1 Puff INH DAILY Use daily at the same time. Morphine Sulfate CR (Morphine Sulfate) 60 Mg Tab 15 Mg PO QID Lopressor (Metoprolol Tartrate) 50 Mg Tab 75 Mg PO BID Review of Systems Except as stated in HPI: all other systems reviewed are Neg General / Constitutional: No: Fever Respiratory: Positive: Cough (chronic in nature however now with brown productive sputum), Shortness of Breath Physical Exam Narrative GENERAL: 66-year-old male, speaking full sentences, reasonably well nourished SKIN: Warm and dry. HEAD: Atraumatic. Normocephalic. EYES: Pupils equal and round. No scleral icterus. No injection or drainage. ENT: No nasal bleeding or discharge. Mucous membranes pink and moist. NECK: Trachea midline. No JVD. CARDIOVASCULAR: Regular rate and rhythm. RESPIRATORY: No accessory muscle use. Clear to auscultation. Breath sounds equal bilaterally. GASTROINTESTINAL: Abdomen soft, non-tender, nondistended. Hepatic and splenic margins not palpable. MUSCULOSKELETAL: Extremities without clubbing, cyanosis, or edema. 2+ pitting edema bilateral lower extremities from the distal tib-fib toes. NEUROLOGICAL: Awake and alert. No obvious cranial nerve deficits. Motor grossly within normal limits. Five out of 5 muscle strength in the arms and legs. Normal speech. PSYCHIATRIC: Appropriate mood and affect; insight and judgment normal. Data Data Last Documented VS Vital Signs Date Time Temp Pulse Resp B/P (MAP) Pulse Ox O2 Delivery O2 Flow Rate FiO2 11/05/16 15:02 75 18 130/72 (91) 99 11/05/16 13:25 Room Air 11/05/16 11:15 98.4 VS reviewed Orders Orders Complete Blood Count With Diff (11/05/16 11:29) Basic Metabolic Panel (Bmp) (11/05/16 11:29) B-Type Natriuretic Peptide (11/05/16 11:29) Iv Access Insert/Monitor (11/05/16 11:29) Electrocardiogram (11/05/16 11:29) Ecg Monitoring (11/05/16 11:29) Oximetry (11/05/16 11:29) Oxygen Administration (11/05/16 11:29) Chest, Single Ap (11/05/16 11:29) Sodium Chloride 0.9% Flush (Ns Flush) (11/05/16 11:30) Methylprednisolone So Succ Inj (Solumedr (11/05/16 11:30) Albuterol-Ipratropium Neb (Duoneb Neb) (11/05/16 11:30) Morphine Ir (Msir) (11/05/16 12:45) Furosemide Inj (Lasix Inj) (11/05/16 14:30) Labs Laboratory Tests Test 11/05/16 12:35 White Blood Count 9.0 TH/MM3 Red Blood Count 4.37 MIL/MM3 Hemoglobin 10.3 GM/DL Hematocrit 32.0 % Mean Corpuscular Volume 73.2 FL Mean Corpuscular Hemoglobin 23.5 PG Mean Corpuscular Hemoglobin Concent 32.1 % Red Cell Distribution Width 19.7 % Platelet Count 297 TH/MM3 Mean Platelet Volume 7.7 FL Neutrophils (%) (Auto) 53.0 % Lymphocytes (%) (Auto) 36.8 % Monocytes (%) (Auto) 8.3 % Eosinophils (%) (Auto) 0.6 % Basophils (%) (Auto) 1.3 % Neutrophils # (Auto) 4.8 TH/MM3 Lymphocytes # (Auto) 3.3 TH/MM3 Monocytes # (Auto) 0.7 TH/MM3 Eosinophils # (Auto) 0.1 TH/MM3 Basophils # (Auto) 0.1 TH/MM3 CBC Comment AUTO DIFF Differential Comment AUTO DIFF CONFIRMED Target Cells 1+ Blood Urea Nitrogen 6 MG/DL Creatinine 0.72 MG/DL Random Glucose 83 MG/DL Calcium Level 8.3 MG/DL Sodium Level 134 MEQ/L Potassium Level 3.7 MEQ/L Chloride Level 101 MEQ/L Carbon Dioxide Level 26.9 MEQ/L Anion Gap 6 MEQ/L Estimat Glomerular Filtration Rate 110 ML/MIN B-Type Natriuretic Peptide 328 PG/ML MDM Medical Decision Making Medical Screen Exam Complete: Yes Emergency Medical Condition: Yes Medical Record Reviewed: Yes Differential Diagnosis COPD exacerbation, nausea, anemia, kidney failure, electrolyte imbalance Narrative Course CBC & BMP Diagram 11/05/16 12:35 Calcium Level 8.3 L BNP 328 Last 24 hours Impressions Chest X-Ray 11/05/16 1129 Signed Impressions: Service Date/Time: Thursday, November 05, 2016 11:34 - CONCLUSION: 1. Two areas of parenchymal density in the left upper lung and left lingular region, unchanged from prior. On prior CT, these appear to correspond to areas of pleural-parenchymal scarring. 2. Stable emphysematous changes, most prominent in the upper lungs. Lake Pritchett MD Patient will be treated with Lasix here and sent home with a prescription. An element of COPD exacerbation with a possible lung base consolidation is not entirely excluded, with treatments as prescribed below. Patient has follow-up with Dr. Lion. Return precautions discussed. Diagnosis Primary Impression: COPD (chronic obstructive pulmonary disease) Qualified Codes: J44.9 - Chronic obstructive pulmonary disease, unspecified Additional Impression: CHF (congestive heart failure) Qualified Codes: I50.9 - Heart failure, unspecified Referrals: Desirae Lion MD 1 week Additional Instructions: You have a choice when it comes to health care, and we are glad that you chose [facility]. Hopefully, we have met your expectations on today's visit. You are welcome to return to [facility] at any time, as we are committed to meeting the health care needs of our community. Med/Other Pt SpecificInfo: Prescription(s) given Scripts Prednisone (Prednisone) 20 Mg Tab 20 MG PO DAILY for 4 Days, TAB 0 Refills Prov: Regis Masterson MD 11/05/16 Furosemide (Lasix) 20 Mg Tab 20 MG PO DAILY for 7 Days, #30 TAB 0 Refills Prov: Regis Masterson MD 11/05/16 Disposition: 01 DISCHARGE HOME Condition: Stable Regis Masterson MD Nov 05, 2016 12:02
[2016-11-05] MEDS ORDERED: MORPHINE SULFATE 15 MG CONTROLLED RELEASE TAB PO ONE (12:30)
[2016-11-05 12:41] LABS: AUTOMATED NEUTROPHIL # 4.8 TH/MM3 (1.8-7.7); BASOPHIL # 0.1 TH/MM3 (0-0.2); BASOPHIL % 1.3 % (0.0-2.0); EOSINOPHIL # 0.1 TH/MM3 (0-0.4); EOSINOPHIL % 0.6 % (0.0-4.0); LYMPH % 36.8 % (9.0-44.0); LYMPHOCYTE # 3.3 TH/MM3 (1.0-4.8); MEAN CELL VOLUME 73.2 FL (80.0-100.0); MEAN CORPUSCULAR HEMOGLOBIN 23.5 PG (27.0-34.0); MEAN CORPUSCULAR HGB CONC 32.1 % (32.0-36.0); MONO % 8.3 % (0.0-8.0); PLATELET COUNT 297 TH/MM3 (150-450); RED BLOOD COUNT 4.37 MIL/MM3 (4.50-5.90); RED CELL DISTRIBUTION WIDTH 19.7 % (11.6-17.2)
[2016-11-05 12:42] LABS: HEMO FLAGS AUTO DIFF
[2016-11-05] MEDS ORDERED: MORPHINE SULFATE 15 MG TAB PO ONE (12:45)
[2016-11-05 12:54] LABS: POTASSIUM 3.7 MEQ/L (3.5-5.1)
[2016-11-05 12:57] LABS: BICARBONATE 26.9 MEQ/L (21.0-32.0)
[2016-11-05 13:18] LABS: SCAN/DIFF AUTO DIFF CONFIRMED; TARGET CELLS 1+ (NORMAL)
[2016-11-05 13:25] VITALS: O2SAT 100
[2016-11-05] MEDS ORDERED: FUROSEMIDE 20 MG/2 ML VIAL IV PUSH ONE (14:30)
[2016-11-05] MEDS ORDERED: PRED20 PO (14:39)
[2016-11-05] MEDS ORDERED: FURO1TAB62 PO (14:39)
[2016-11-05] MEDS ORDERED: AZIT250T3 PO (14:40)
[2016-11-05 15:02] VITALS: BP 130/72
--- NOTE | 2016-11-06 08:42 | EKG ---
Date Performed: 11/05/2016 Time Performed: 11:37:07 PTAGE: 66 years EKG: ATRIAL FIBRILLATION ABNORMAL RHYTHM ECG PREVIOUS TRACING : 10/11/2016 19.31 No significant change from previous tracing noted. DOCTOR: Gentry Wilkinson Interpretating Date/Time 11/06/2016 08:40:33
== END 2016-11-05 15:10 | disposition home or self-care (01) ==
LOC: PHED 11:03
DX: J44.9 Chronic obstructive pulmonary disease, unspecified (principal); I50.9 Heart failure, unspecified; F17.210 Nicotine dependence, cigarettes, uncomplicated; I11.0 Hypertensive heart disease with heart failure; Z86.718 Personal history of other venous thrombosis and embolism
CPT/HCPCS: 71010; 80048; 83880; 85025; 93005; 94664; 96361; 96374; 96375; 99284; J1940; J2930

== ENCOUNTER 2016-11-06 11:40 | Emergency (ER) | payer MEDICARE, MEDICAID ==
[~2016-11-06] VITALS: Ht 175.3 cm; Wt 59.0 kg
[~2016-11-06 11:40] MED LIST changes: +AZIT250T3 PO; -CLON1 PO; +FLUT1INH INH; +FURO1TAB62 PO; +LACTCAP8 PO; +MULTTAB67 PO; +PRED20 PO; -SYMB80AE INH
[2016-11-06 11:51] VITALS: BP 124/78; PULSE 99; RESP 16; TEMP 98; O2SAT 100
--- NOTE | 2016-11-06 12:47 | PD ---
HPI . Bilateral lower extremity pain, numbness and swelling Chief Complaint: Musculoskeletal Complaint Time Seen by Provider: 12:04 Travel History International Travel<30 days: No Contact w/Intl Traveler<30days: No Traveled to known affect area: No History of Present Illness HPI This patient presents for the evaluation of bilateral lower extremity pain, swelling and numbness. He reports that he was seen here yesterday for same and was given medications. He states that he is no better so presents back to us today. He does not know what the doctor thought was wrong with him yesterday. He states that sometimes trips and falls because of numbness in his feet. He has had no acute injury. He rates his pain as 10/10. PFSH Past Medical History Hx Anticoagulant Therapy: Yes Arthritis: Yes Asthma: No Atrial Fibrillation: Yes Autoimmune Disease: No Blood Disorders: No Anxiety: Yes ("severe") Depression: Yes (dysphoria...low grade) Heart Rhythm Problems: Yes (AFIB) Cardiovascular Problems: Yes (has htn on meds) High Cholesterol: No Chemotherapy: No Chest Pain: No Congestive Heart Failure: Yes COPD: Yes Cerebrovascular Accident: No Diabetes: No Diminished Hearing: No Deep Vein Thrombosis: Yes (RLE) Endocrine: No Gastrointestinal Disorders: Yes GERD: No Glaucoma: No Genitourinary: No Headaches: No Hepatitis: Yes (C) Hiatal Hernia: No Heparin Induced Thrombocytopen: No Hypertension: Yes Immune Disorder: No Implanted Vascular Access Dvce: Yes Kidney Stones: No Musculoskeletal: Yes (RIGHT ANKLE MULTIPLE SURGERIES, PINS AND SCREWS, CHRONIC PAIN) Neurologic: Yes Psychiatric: Yes (PTSD) Reproductive: No Respiratory: Yes (chf, copd) Immunizations Current: Yes Migraines: No Myocardial Infarction: No Pancreatitis: Yes Pneumonia: Yes Radiation Therapy: No Renal Failure: No Seizures: No Sickle Cell Disease: No Sleep Apnea: No Thyroid Disease: No Ulcer: No Past Surgical History Abdominal Surgery: No AICD: No Appendectomy: No Arteriovenous Shunt: No Body Medical Devices: PLATE/SCREWS FOR R/ANKLE Cardiac Surgery: No Cholecystectomy: No Ear Surgery: No Endocrine Surgery: No Eye Surgery: No Genitourinary Surgery: No Insulin Pump: No Joint Replacement: Yes (rt ankle) Neurologic Surgery: No Oral Surgery: Yes (TEETH REMOVED 2014, TONSILLECTOMY) Pacemaker: No Thoracic Surgery: No Tonsillectomy: Yes Other Surgery: Yes (left eye ) Social History Alcohol Use: No Tobacco Use: Yes (2 TO 3 CIGS PER DAY) Substance Use: No Allergies-Medications (Allergen,Severity, Reaction): Coded Allergies: codeine (Unverified Allergy, Severe, TURN RED, SOB, HIVES, 11/05/16) ketoconazole (Unverified Allergy, Intermediate, Rash, 11/05/16) ITCHING *MDRO Multi-Drug Resistant Organism (Verified Adverse Reaction, Unknown, ) Pt. reports hx MRSA. MRSA PCR Screen NEGATIVE - 10/26/14, 03/23/15 CLEARED PER INFECTION CONTROL PROTOCOL Reported Meds & Prescriptions Reported Meds & Active Scripts Active Azithromycin 250 Mg Tab 250 Mg PO DIRECTED Take 2 tabs (500 mg) on day 1 then 1 tab daily x 4 days. Prednisone 20 Mg Tab 20 Mg PO DAILY 4 Days Lasix (Furosemide) 20 Mg Tab 20 Mg PO DAILY 7 Days Eliquis (Apixaban) 5 Mg Tab 5 Mg PO BID Diltiazem CD 24 HR 300 Mg Caper 300 Mg PO DAILY Reported Multiple Vitamin 1 Tab 1 Tab PO DAILY Probiotic (Lactobacillus Acidophilus) 1 Cap Cap 1 Cap PO TIDAC Breo Ellipta Inh (Fluticasone/Vilanterol) 100-25 Mcg/Act Inh 1 Puff INH DAILY Use daily at the same time. Morphine Sulfate CR (Morphine Sulfate) 60 Mg Tab 15 Mg PO QID Lopressor (Metoprolol Tartrate) 50 Mg Tab 75 Mg PO BID Review of Systems Except as stated in HPI: all other systems reviewed are Neg General / Constitutional: No: Fever, Chills Respiratory: Positive: Shortness of Breath Genitourinary: Positive: Flank Pain Musculoskeletal: Positive: Edema, Pain Neurologic: Positive: Paresthesia Physical Exam Narrative GENERAL: Awake and alert and in no acute distress. SKIN: Warm and dry. The skin of his feet is pink and warm. HEAD: Atraumatic. Normocephalic. EYES: Pupils equal and round. Extraocular movements are intact. NECK: Trachea midline. Neck is supple. CARDIOVASCULAR: Regular rate and rhythm. Distal pulses and capillary refill are intact distally. RESPIRATORY: No accessory muscle use. The patient is speaking in complete sentences without any respiratory distress. His oxygen saturation is 100% on room air. MUSCULOSKELETAL: No obvious deformities. Nonpitting edema. NEUROLOGICAL: Awake and alert. No obvious cranial nerve deficits. Motor grossly within normal limits. Normal speech. PSYCHIATRIC: Appropriate mood and affect; insight and judgment normal. Data Data Last Documented VS Vital Signs Date Time Temp Pulse Resp B/P (MAP) Pulse Ox O2 Delivery O2 Flow Rate FiO2 11/06/16 11:51 98.0 99 16 124/78 (93) 100 MDM Medical Decision Making Medical Screen Exam Complete: Yes Emergency Medical Condition: Yes Medical Record Reviewed: Yes (patient was seen here yesterday for same. He had a CBC which was unremarkable, basic metabolic panel which was unremarkable and a BNP which was 328. Chest x-ray showed some left pleural scarring and changes compatible with COPD. He was discharged with prescriptions for Zithromax, prednisone and Lasix. He was instructed to continue his chronic medications of Eliquis, metoprolol, Cardizem, morphine, Breo and multivitamins) Differential Diagnosis My differential diagnosis of paresthesias includes but is not limited to anxiety , radiculopathy, peripheral neuropathy, peripheral vascular disease, compartment syndrome Narrative Course This patient presents with paresthesias and pain in both feet. This patient has been worked appear twice in the recent past for same. I do not feel that further workup in the emergency department would be rewarding or prudent. He has no evidence of impaired circulation to his feet. There is no evidence of infection. He has a chronic issue which needs to be followed by his primary care physician. Diagnosis Primary Impression: Chronic pain Qualified Codes: G89.4 - Chronic pain syndrome Patient Instructions: Chronic Abdominal Pain (ED), General Instructions Disposition: 01 DISCHARGE HOME Condition: Stable Pooja Gracia MD Nov 06, 2016 12:47
== END 2016-11-06 13:42 | disposition home or self-care (01) ==
LOC: PHED 11:40
DX: G89.4 Chronic pain syndrome (principal); I11.0 Hypertensive heart disease with heart failure; I50.9 Heart failure, unspecified; I48.91 Unspecified atrial fibrillation; J44.9 Chronic obstructive pulmonary disease, unspecified; Z86.718 Personal history of other venous thrombosis and embolism; F17.210 Nicotine dependence, cigarettes, uncomplicated
CPT/HCPCS: 99281

== ENCOUNTER 2016-11-07 14:13 | Emergency (ER) | payer MEDICARE, MEDICAID ==
[~2016-11-07] VITALS: Ht 175.3 cm; Wt 58.0 kg
[~2016-11-07 14:13] MED LIST changes: -AZIT250T3 PO
[2016-11-07 14:53] VITALS: BP 112/70; PULSE 73; RESP 18; TEMP 98.2; O2SAT 100
--- NOTE | 2016-11-07 14:58 | PD ---
HPI Chief Complaint: hip pain Time Seen by Provider: 14:58 Travel History International Travel<30 days: No Contact w/Intl Traveler<30days: No History of Present Illness HPI 66 YO M presents to the ED via EMS for evaluation of right hip pain after fall today. The patient has chronic neuropathy and weakness in the BLE, worse on the left. He states that he attempted to get out of bed to day and fell to the floor , landing on his right hip. He denies dizziness, palpitations, SOB, CP. He has not been ambulatory since the accident. He denies saddle anesthesia or incontinence. He has a pain management provider and states that he has his prescribed medications at home, last dose this morning. PFSH Past Medical History Hx Anticoagulant Therapy: Yes Arthritis: Yes Asthma: No Atrial Fibrillation: Yes Autoimmune Disease: No Blood Disorders: No Anxiety: Yes ("severe") Depression: Yes (dysphoria...low grade) Heart Rhythm Problems: Yes (AFIB) Cardiovascular Problems: Yes (has htn on meds) High Cholesterol: No Chemotherapy: No Chest Pain: No Congestive Heart Failure: Yes COPD: Yes Cerebrovascular Accident: No Diabetes: No Diminished Hearing: No Deep Vein Thrombosis: Yes (RLE) Endocrine: No Gastrointestinal Disorders: Yes GERD: No Glaucoma: No Genitourinary: No Headaches: No Hepatitis: Yes (C) Hiatal Hernia: No Heparin Induced Thrombocytopen: No Hypertension: Yes Immune Disorder: No Implanted Vascular Access Dvce: Yes Kidney Stones: No Musculoskeletal: Yes (RIGHT ANKLE MULTIPLE SURGERIES, PINS AND SCREWS, CHRONIC PAIN) Neurologic: Yes Psychiatric: Yes (PTSD) Reproductive: No Respiratory: Yes (chf, copd) Immunizations Current: Yes Migraines: No Myocardial Infarction: No Pancreatitis: Yes Pneumonia: Yes Radiation Therapy: No Renal Failure: No Seizures: No Sickle Cell Disease: No Sleep Apnea: No Thyroid Disease: No Ulcer: No Past Surgical History Abdominal Surgery: No AICD: No Appendectomy: No Arteriovenous Shunt: No Body Medical Devices: PLATE/SCREWS FOR R/ANKLE Cardiac Surgery: No Cholecystectomy: No Ear Surgery: No Endocrine Surgery: No Eye Surgery: No Genitourinary Surgery: No Insulin Pump: No Joint Replacement: Yes (rt ankle) Neurologic Surgery: No Oral Surgery: Yes (TEETH REMOVED 2014, TONSILLECTOMY) Pacemaker: No Thoracic Surgery: No Tonsillectomy: Yes Other Surgery: Yes (left eye ) Social History Alcohol Use: No Tobacco Use: Yes (2 TO 3 CIGS PER DAY) Substance Use: No Allergies-Medications (Allergen,Severity, Reaction): Coded Allergies: codeine (Verified Allergy, Severe, TURN RED, SOB, HIVES, 11/07/16) ketoconazole (Verified Allergy, Intermediate, Rash, 11/07/16) ITCHING *MDRO Multi-Drug Resistant Organism (Verified Adverse Reaction, Unknown, ) Pt. reports hx MRSA. MRSA PCR Screen NEGATIVE - 10/26/14, 03/23/15 CLEARED PER INFECTION CONTROL PROTOCOL Reported Meds & Prescriptions Reported Meds & Active Scripts Active Lasix (Furosemide) 20 Mg Tab 20 Mg PO DAILY 7 Days Eliquis (Apixaban) 5 Mg Tab 5 Mg PO BID Diltiazem CD 24 HR 300 Mg Caper 300 Mg PO DAILY Reported Multiple Vitamin 1 Tab 1 Tab PO DAILY Probiotic (Lactobacillus Acidophilus) 1 Cap Cap 1 Cap PO TIDAC Breo Ellipta Inh (Fluticasone/Vilanterol) 100-25 Mcg/Act Inh 1 Puff INH DAILY Use daily at the same time. Morphine Sulfate CR (Morphine Sulfate) 60 Mg Tab 15 Mg PO QID Lopressor (Metoprolol Tartrate) 50 Mg Tab 75 Mg PO BID Review of Systems Except as stated in HPI: all other systems reviewed are Neg Physical Exam Narrative GENERAL: Well-nourished, well-developed patient. SKIN: Focused skin assessment warm/dry. HEAD: Normocephalic. EYES: No scleral icterus. No injection or drainage. NECK: Supple, trachea midline. No JVD or lymphadenopathy. CARDIOVASCULAR: Regular rate and rhythm without murmurs, gallops, or rubs. RESPIRATORY: Breath sounds equal bilaterally. No accessory muscle use. GASTROINTESTINAL: Abdomen soft, non-tender, nondistended. MUSCULOSKELETAL: No cyanosis, or edema. Palpation of the anterior lateral aspect of the right hip. No foreshortening or internal rotation. Right foot is actually externally rotated. 3/5 strength in bilateral LE, right slightly worse than left. Limited ROM of left ankle. Reflexes intact at the knee. NEUROLOGICAL: Awake and alert. Cranial nerves II through XII intact. Motor and sensory grossly within normal limits. Normal speech. BACK: Nontender without obvious deformity. No CVA tenderness. Data Data Last Documented VS Vital Signs Date Time Temp Pulse Resp B/P (MAP) Pulse Ox O2 Delivery O2 Flow Rate FiO2 11/07/16 17:59 11/07/16 17:19 71 16 100 Room Air 11/07/16 14:53 98.2 Orders Orders Oxycodone-Acetamin 10-325 Mg (Percocet 1 (11/07/16 16:00) Hip, Uni(Ap&Lat) W Ap Pelvis (11/07/16 15:50) MDM Medical Decision Making Medical Screen Exam Complete: Yes Emergency Medical Condition: Yes Differential Diagnosis contusion versus fracture versus acute on chronic pain versus malingering versus other Narrative Course 66 YO M presents to the ED via EMS for evaluation of right hip pain after fall today. The patient has chronic neuropathy and weakness in the BLE, worse on the left. He states that he attempted to get out of bed to day and fell to the floor , landing on his right hip. He denies dizziness, palpitations, SOB, CP. He has not been ambulatory since the accident. He denies saddle anesthesia or incontinence. He has a pain management provider and states that he has his prescribed medications at home, last dose this morning. Vitals reviewed. Physical exam does reveal bilateral lower extremity weakness but this seems in keeping with his previous physical exams. Review of the record reveals that he' s been here couple times in the last week. X-ray of the right hip is unremarkable. He was administered Percocet in the ED. I reviewed EFORCSE. He was prescribed 30 days narcotic pain meds on 10/07. He may be drug seeking. In any case, no new neuro deficits or bony injury. He is safe for discharge and follow-up with his primary care, neurologist and pain provider. He is agreeable with the plan. He is discharged home. Diagnosis Primary Impression: Falls frequently Additional Impression: Chronic pain Qualified Codes: G89.29 - Other chronic pain Referrals: Neurologist Pain Management Primary Care Physician Additional Instructions: Rest, hydrate. Resume at home medications as prescribed. Follow up with your PCP, pain management provider and neurologist. Return to the Ed for any urgent or emergent medical condition. Disposition: 01 DISCHARGE HOME Condition: Stable Cherie Muhammad Nov 07, 2016 14:58
[2016-11-07] MEDS ORDERED: oxyCODONE/ACETAMINOPHEN 10 MG/325 MG TAB PO ONE (16:00)
--- NOTE | 2016-11-07 17:17 | RADRPT ---
EXAM DATE/TIME: 11/07/2016 16:19 [facility] COMPARISON: No previous studies available for comparison. INDICATIONS : Has been falling for 2 weks. MEDICAL HISTORY : Chronic obstructive pulmonary disease. Congestive heart failure. SURGICAL HISTORY : None. ENCOUNTER: Initial ACUITY: 2 weeks PAIN SCORE: 10/10 LOCATION: Right hip and pelvis FINDINGS: Examination of the right hip was performed with AP Pelvis. The primary and secondary trabecular angela jorge of the femoral neck is intact. The hip joint is of normal width without significant sclerosis or bony hypertrophy. The acetabulum is grossly intact. CONCLUSION: 1. No acute fracture or dislocation. Quincy Wong MD on November 07, 2016 at 17:14 Board Certified Radiologist. This report was verified electronically.
[2016-11-07 17:19] VITALS: BP 117/67; PULSE 71; RESP 16; O2SAT 100
== END 2016-11-07 18:00 | disposition home or self-care (01) ==
LOC: NEPD 14:13
DX: M25.551 Pain in right hip (principal); G89.29 Other chronic pain; G62.9 Polyneuropathy, unspecified; I50.9 Heart failure, unspecified; I10 Essential (primary) hypertension; J44.9 Chronic obstructive pulmonary disease, unspecified; K85.90 Acute pancreatitis without necrosis or infection, unspecified; F43.10 Post-traumatic stress disorder, unspecified; Z86.718 Personal history of other venous thrombosis and embolism
CPT/HCPCS: 73502; 99283

== ENCOUNTER 2016-11-28 10:15 | Observation (INO) | payer MEDICARE, MEDICAID ==
[~2016-11-28] VITALS: Ht 175.3 cm; Wt 54.0 kg
[~2016-11-28 10:15] MED LIST changes: -PRED20 PO
[2016-11-28 10:17] VITALS: BP 143/70; PULSE 92; RESP 22; TEMP 97.6; O2SAT 100
[2016-11-28 10:35] VITALS: BP 127/76; PULSE 88; RESP 22; TEMP 97.6; O2SAT 100
[2016-11-28] MEDS ORDERED: SODIUM CHLORIDE 0.9% FLUSH 10 ML FLUSH IVF PRN (10:45)
[2016-11-28] MEDS ORDERED: methylPREDNISolone SOD SUCC 125 MG/2 ML VIAL IV PUSH ONE (10:45)
--- NOTE | 2016-11-28 10:49 | PD ---
HPI Chief Complaint: Respiratory Symptoms Time Seen by Provider: 10:32 Travel History International Travel<30 days: No Contact w/Intl Traveler<30days: No Traveled to known affect area: No History of Present Illness HPI This 66-year-old male is complaining of cough and shortness of breath. He has a history of COPD. He is currently on breo. He has not had fever but has had some chills. He says that he does not smoke but that his ex- smokes in the house quite heavily. He also has a history of atrial fibrillation and is on Cardizem 300 mg daily and Eliquis. He has noted increased bruising recently. He has not had chest pain. He apparently has had a abnormality on chest x-ray on the left side of his chest for some time. In June of [address] scan and this mass has been followed by Dr. Maria. [facility] Past Medical History Hx Anticoagulant Therapy: Yes (ELIQUIS) Arthritis: Yes Asthma: No Atrial Fibrillation: Yes Autoimmune Disease: No Blood Disorders: No Anxiety: Yes ("severe") Depression: Yes (dysphoria...low grade) Heart Rhythm Problems: Yes (AFIB) Cardiovascular Problems: Yes High Cholesterol: No Chemotherapy: No Chest Pain: No Congestive Heart Failure: Yes COPD: Yes Cerebrovascular Accident: No Diabetes: No Diminished Hearing: No Deep Vein Thrombosis: Yes (RLE) Endocrine: No Gastrointestinal Disorders: Yes GERD: No Glaucoma: No Genitourinary: No Headaches: No Hepatitis: Yes (C) Hiatal Hernia: No Heparin Induced Thrombocytopen: No Hypertension: Yes Immune Disorder: No Implanted Vascular Access Dvce: Yes Kidney Stones: No Musculoskeletal: Yes (RIGHT ANKLE MULTIPLE SURGERIES, PINS AND SCREWS, CHRONIC PAIN) Neurologic: Yes Psychiatric: Yes (PTSD) Reproductive: No Respiratory: Yes Immunizations Current: Yes Migraines: No Myocardial Infarction: No Pancreatitis: Yes Pneumonia: Yes Radiation Therapy: No Renal Failure: No Seizures: No Sickle Cell Disease: No Sleep Apnea: No Thyroid Disease: No Ulcer: No Tetanus Vaccination: < 5 Years Influenza Vaccination: Yes ?: Not Past Surgical History Abdominal Surgery: No AICD: No Appendectomy: No Arteriovenous Shunt: No Body Medical Devices: PLATE/SCREWS FOR R/ANKLE Cardiac Surgery: No Cholecystectomy: No Ear Surgery: No Endocrine Surgery: No Eye Surgery: No Genitourinary Surgery: No Insulin Pump: No Joint Replacement: Yes (rt ankle) Neurologic Surgery: No Oral Surgery: Yes (TEETH REMOVED 2014, TONSILLECTOMY) Pacemaker: No Thoracic Surgery: No Tonsillectomy: Yes Other Surgery: Yes (left eye ) Social History Alcohol Use: No Tobacco Use: No Substance Use: No Allergies-Medications (Allergen,Severity, Reaction): Coded Allergies: codeine (Verified Allergy, Severe, TURN RED, SOB, HIVES, 11/28/16) ketoconazole (Verified Allergy, Intermediate, Rash, 11/28/16) ITCHING *MDRO Multi-Drug Resistant Organism (Verified Adverse Reaction, Unknown, ) Pt. reports hx MRSA. MRSA PCR Screen NEGATIVE - 10/26/14, 03/23/15 CLEARED PER INFECTION CONTROL PROTOCOL Reported Meds & Prescriptions Reported Meds & Active Scripts Active Eliquis (Apixaban) 5 Mg Tab 5 Mg PO BID Diltiazem CD 24 HR 300 Mg Caper 300 Mg PO DAILY Reported Morphine IR (Morphine Sulfate) 15 Mg Tab 15 Mg PO QID Multiple Vitamin 1 Tab 1 Tab PO DAILY Probiotic (Lactobacillus Acidophilus) 1 Cap Cap 1 Cap PO TIDAC Breo Ellipta Inh (Fluticasone/Vilanterol) 100-25 Mcg/Act Inh 1 Puff INH DAILY Use daily at the same time. Lopressor (Metoprolol Tartrate) 50 Mg Tab 75 Mg PO BID Physical Exam Narrative GENERAL: Thin chronically ill appearing male SKIN: Focused skin assessment warm/dry. HEAD: Atraumatic. Normocephalic. EYES: Pupils equal and round. No scleral icterus. No injection or drainage. ENT: No nasal bleeding or discharge. Mucous membranes pink and moist. NECK: Trachea midline. No JVD. CARDIOVASCULAR: Regular rate and rhythm. No murmur appreciated. RESPIRATORY: There is accessory muscle use. He has coarse rhonchi bilaterally. Occasional wheeze GASTROINTESTINAL: Abdomen soft, non-tender, nondistended. Hepatic and splenic margins not palpable. MUSCULOSKELETAL: No obvious deformities. No clubbing. No cyanosis. No edema. NEUROLOGICAL: Awake and alert. No obvious cranial nerve deficits. Motor grossly within normal limits. Normal speech. PSYCHIATRIC: Appropriate mood and affect; insight and judgment normal. Data Data Last Documented VS Vital Signs Date Time Temp Pulse Resp B/P (MAP) Pulse Ox O2 Delivery O2 Flow Rate FiO2 11/28/16 12:25 92 18 132/80 (97) 100 Room Air 11/28/16 10:35 97.6 Orders Orders Complete Blood Count With Diff (11/28/16 10:44) Comprehensive Metabolic Panel (11/28/16 10:44) B-Type Natriuretic Peptide (11/28/16 10:44) Act Partial Throm Time (Ptt) (11/28/16 10:44) Prothrombin Time / Inr (Pt) (11/28/16 10:44) Troponin I (11/28/16 10:44) Urinalysis - C+S If Indicated (11/28/16 10:44) Influenzae A/B Antigen (11/28/16 10:44) Iv Access Insert/Monitor (11/28/16 10:44) Electrocardiogram (11/28/16 10:44) Ecg Monitoring (11/28/16 10:44) Oximetry (11/28/16 10:44) Chest, Single Ap (11/28/16 10:44) Sodium Chloride 0.9% Flush (Ns Flush) (11/28/16 10:45) Methylprednisolone So Succ Inj (Solumedr (11/28/16 10:45) Albuterol-Ipratropium Neb (Duoneb Neb) (11/28/16 10:45) Blood Culture (11/28/16 11:12) Ct Thorax/ Chest W Iv Contrast (11/28/16 11:25) Iohexol 350 Inj (Omnipaque 350 Inj) (11/28/16 11:50) Morphine Sr (Oramorph Sr) (11/28/16 12:15) Morphine Ir (Msir) (11/28/16 12:45) Admit Order (Ed Use Only) (11/28/16 12:58) Ceftriaxone Inj (Rocephin Inj) (11/28/16 13:00) Labs Laboratory Tests Test 11/28/16 11:00 White Blood Count 5.4 TH/MM3 Red Blood Count 4.47 MIL/MM3 Hemoglobin 10.9 GM/DL Hematocrit 33.8 % Mean Corpuscular Volume 75.8 FL Mean Corpuscular Hemoglobin 24.5 PG Mean Corpuscular Hemoglobin Concent 32.4 % Red Cell Distribution Width 20.1 % Platelet Count 393 TH/MM3 Mean Platelet Volume 7.4 FL Neutrophils (%) (Auto) 53.1 % Lymphocytes (%) (Auto) 34.3 % Monocytes (%) (Auto) 9.4 % Eosinophils (%) (Auto) 1.4 % Basophils (%) (Auto) 1.8 % Neutrophils # (Auto) 2.8 TH/MM3 Lymphocytes # (Auto) 1.9 TH/MM3 Monocytes # (Auto) 0.5 TH/MM3 Eosinophils # (Auto) 0.1 TH/MM3 Basophils # (Auto) 0.1 TH/MM3 CBC Comment AUTO DIFF Differential Comment AUTO DIFF CONFIRMED Target Cells 1+ Prothrombin Time 13.9 SEC Prothromb Time International Ratio 1.2 RATIO Activated Partial Thromboplast Time 33.4 SEC Blood Urea Nitrogen 8 MG/DL Creatinine 0.74 MG/DL Random Glucose 92 MG/DL Total Protein 7.4 GM/DL Albumin 3.2 GM/DL Calcium Level 8.6 MG/DL Alkaline Phosphatase 92 U/L Aspartate Amino Transf (AST/SGOT) 62 U/L Alanine Aminotransferase (ALT/SGPT) 35 U/L Total Bilirubin 0.5 MG/DL Sodium Level 136 MEQ/L Potassium Level 4.6 MEQ/L Chloride Level 104 MEQ/L Carbon Dioxide Level 23.5 MEQ/L Anion Gap 9 MEQ/L Estimat Glomerular Filtration Rate 106 ML/MIN Troponin I LESS THAN 0.02 NG/ML B-Type Natriuretic Peptide 373 PG/ML MDM Medical Decision Making Medical Screen Exam Complete: Yes Emergency Medical Condition: Yes Medical Record Reviewed: Yes Differential Diagnosis Differential includes CHF, COPD exacerbation, pneumonia Narrative Course X-ray shows increasing infiltrative masslike opacity in the left upper lobe and left face. The right lung is clear. The CT scan has been ordered to further assess this this area. CT scan shows minimal progression of airspace density in left upper lobe in both lung bases thought to be inflammatory there is minimal nonspecific mediastinal adenopathy Diagnosis Primary Impression: Pneumonia Qualified Codes: J18.9 - Pneumonia, unspecified organism Additional Impression: COPD exacerbation Admitting Information Admitting Physician Requests: it Gerry Price MD Nov 28, 2016 10:48
[2016-11-28 11:00] VITALS: O2SAT 100
[2016-11-28 11:06] LABS: AUTOMATED NEUTROPHIL # 2.8 TH/MM3 (1.8-7.7); BASOPHIL # 0.1 TH/MM3 (0-0.2); BASOPHIL % 1.8 % (0.0-2.0); EOSINOPHIL # 0.1 TH/MM3 (0-0.4); EOSINOPHIL % 1.4 % (0.0-4.0); HEMATOCRIT 33.8 % (39.0-51.0); LYMPH % 34.3 % (9.0-44.0); LYMPHOCYTE # 1.9 TH/MM3 (1.0-4.8); MEAN CELL VOLUME 75.8 FL (80.0-100.0); MEAN CORPUSCULAR HEMOGLOBIN 24.5 PG (27.0-34.0); MEAN CORPUSCULAR HGB CONC 32.4 % (32.0-36.0); MONO % 9.4 % (0.0-8.0); NEUT % 53.1 % (16.0-70.0); PLATELET COUNT 393 TH/MM3 (150-450); RED BLOOD COUNT 4.47 MIL/MM3 (4.50-5.90); RED CELL DISTRIBUTION WIDTH 20.1 % (11.6-17.2); WHITE BLOOD COUNT 5.4 TH/MM3 (4.0-11.0)
[2016-11-28] MEDS: RESP: ALBUTEROL 2.5 MG/IPRATROPIUM 0.5 MG NEB (SCH) INH ×4 (11:06→11:15)
[2016-11-28 11:11] LABS: HEMO FLAGS AUTO DIFF
[2016-11-28 11:15] LABS: CHLORIDE 104 MEQ/L (98-107); SODIUM (NA) 136 MEQ/L (136-145)
[2016-11-28 11:16] LABS: POTASSIUM 4.6 MEQ/L (3.5-5.1)
--- NOTE | 2016-11-28 11:18 | RADRPT ---
EXAM DATE/TIME: 11/28/2016 10:54 [facility] COMPARISON: CHEST SINGLE AP, November 05, 2016, 11:34 INDICATIONS : Short of breath. MEDICAL HISTORY : Chronic obstructive pulmonary disease. Emphysema. Left lung mass. SURGICAL HISTORY : None. ENCOUNTER: Initial ACUITY: 2 days PAIN SCORE: 0/10 LOCATION: Bilateral chest FINDINGS: Increasing infiltrative masslike opacity is present left upper lobe and left base. Right lung is sheila ar. The heart and pulmonary vascularity are normal. The portion of the bony skeleton visualized is un remarkable. CONCLUSION: Further deterioration in the appearance of the left lung as described above. Followup is suggested. James Moreno MD FACR on November 28, 2016 at 11:15 Board Certified Radiologist. This report was verified electronically.
[2016-11-28 11:22] LABS: APTT (PATIENT) 33.4 SEC (24.3-30.1); INTERNATIONAL NORMALIZED RATIO 1.2 RATIO; PROTHROMBIN TIME - PATIENT 13.9 SEC (9.8-11.6)
[2016-11-28 11:23] LABS: ANION GAP 9 MEQ/L (5-15); BICARBONATE 23.5 MEQ/L (21.0-32.0); BLOOD UREA NITROGEN 8 MG/DL (7-18)
[2016-11-28 11:25] LABS: ALT (GPT) 35 U/L (12-78); AST (GOT) 62 U/L (15-37); GLOMERULAR FILTRATION RATE 106 ML/MIN (>89)
[2016-11-28 11:26] LABS: TOTAL BILIRUBIN ADULT 0.5 MG/DL (0.2-1.0)
[2016-11-28 11:27] LABS: ALKALINE PHOSPHATASE 92 U/L (45-117)
[2016-11-28 11:48] LABS: TARGET CELLS 1+ (NORMAL)
[2016-11-28 11:49] LABS: SCAN/DIFF AUTO DIFF CONFIRMED
[2016-11-28] MEDS ORDERED: IOHEXOL 350 MG/ML 10 ML VIAL (for RAD DIAG) IVCONTRAST ONE (11:50)
--- NOTE | 2016-11-28 12:02 | RADRPT ---
EXAM DATE/TIME: 11/28/2016 11:44 [facility] COMPARISON: CT THORAX W CONTRAST, March 28, 2015, 16:30. INDICATIONS : Short of breath. Cough. Abnormal chest x-ray. IV CONTRAST: 50 cc Omnipaque 350 (iohexol) IV RADIATION DOSE: 6.49 CTDIvol (mGy) MEDICAL HISTORY : Chronic obstructive pulmonary disease. Deep venous thrombosis. Congestive heart failure.Hep C. Lung mass. SURGICAL HISTORY : None. ENCOUNTER: Initial ACUITY: 2 days PAIN SCALE: 8/10 LOCATION: Bilateral chest TECHNIQUE: Volumetric scanning of the chest was performed. Using automated exposure control and adjustment of t he mA and/or kV according to patient size, radiation dose was kept as low as reasonably achievable to obtain optimal diagnostic quality images. DICOM format image data is available electronically for review and comparison. Follow-up recommendations for detected pulmonary nodules are based at a minimum on nodule size and pa tient risk factors according to Fleischner Society Guidelines. FINDINGS: LUNGS: Minimal progression of the airspace disease in left upper lobe and both lung base is probably inflamm atory. Moderate hyperinflation. PLEURA: There is no pleural thickening or pleural effusion. MEDIASTINUM: Minimal small nonspecific mediastinal adenopathy is present. Moderate artery calcifications are note d. AXILLAE: Within normal limits. No lymphadenopathy. SKELETAL: Within normal limits for patient age. MISCELLANEOUS: The visualized upper abdominal organs demonstrate no acute abnormality. CONCLUSION: Hyperinflation with patchy airspace disease worse the left upper lobe. An active inflammatory proces s including mycobacterium cannot be excluded. Minimal nonspecific mediastinal adenopathy. James Moreno MD FACR on November 28, 2016 at 11:59 Board Certified Radiologist. This report was verified electronically.
[2016-11-28] MEDS ORDERED: MORPHINE SULFATE 15 MG CONTROLLED RELEASE TAB PO ONE (12:15)
[2016-11-28 12:25] VITALS: BP 132/80; PULSE 92; RESP 18; O2SAT 100
[2016-11-28] MEDS ORDERED: MSIR15 PO (12:28)
[2016-11-28] MEDS ORDERED: MORPHINE SULFATE 15 MG TAB PO ONE (12:45)
[2016-11-28] MEDS ORDERED: cefTRIAXone INJ 1,000 MG in SODIUM CHLORIDE 0.9% INJ 100 ML IV ONE (13:00)
--- NOTE | 2016-11-28 13:55 | EKG ---
Date Performed: 11/28/2016 Time Performed: 10:51:04 PTAGE: 66 years EKG: ATRIAL FIBRILLATION ABNORMAL RHYTHM ECG No significant change from prior electrocardiogram. PREVIOUS TRACING : 11/05/2016 11.37 DOCTOR: Jacob Sanchez Interpretating Date/Time 11/28/2016 13:54:17
[2016-11-28] MEDS ORDERED: NALOXONE HCL 0.4 MG/ML AMP IV PUSH PRN (14:15)
[2016-11-28] MEDS ORDERED: SODIUM CHLORIDE 0.9% FLUSH 10 ML FLUSH IV FLUSH PRN (14:15)
[2016-11-28] MEDS ORDERED: ACETAMINOPHEN 325 MG TAB PO PRN (14:15)
[2016-11-28] MEDS ORDERED: ENOXAPARIN SODIUM 40 MG/0.4 ML SYRINGE SQ SCH (14:15)
[2016-11-28 14:25] VITALS: BP 119/76; PULSE 82; RESP 18; O2SAT 99
[2016-11-28] MEDS ORDERED: RESP: ALBUTEROL 2.5 MG/IPRATROPIUM 0.5 MG NEB (PRN) NEB (14:30)
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
[2016-11-28 15:02] LABS: BLOOD GAS CARBOXYHEMOGLOBIN 2.1 % (0-4); BLOOD GAS HCO3 22 mmol/L (22-26); BLOOD GAS METHEMOGLOBIN 1.1 % (0-2); BLOOD GAS O2 HGB SATURATION 95 % (90-100); BLOOD GAS OXYGEN CONTENT 14.6 Vol % (12.0-20.0); BLOOD GAS PCO2 34 mmHg (38-42); BLOOD GAS PO2 106 mmHg (61-120); BLOOD GAS TOTAL HGB 10.8 G/DL (12.0-16.0); CRITICAL VALUE NO; DRAW SITE RT RADIAL; FIO2 21 %; NUMBER OF ARTERIAL PUNCTURES 1; OXYGEN DEVICE RA; STAT NO; ULNAR PULSE PRESENT
[2016-11-28] MEDS ORDERED: PILL SPLITTER OTHER PRN (15:30)
[2016-11-28 16:03] VITALS: BP 119/69; PULSE 80; RESP 20; TEMP 96.7; O2SAT 100
--- NOTE | 2016-11-28 16:03 | HHI.DCPOC ---
Discharge Care Plan Diagnosis: (1) Anxiety Goals to Promote Your Health * To prevent worsening of your condition and complications * To maintain your health at the optimal level Directions to Meet Your Goals Take your medications as prescribed Follow your dietary instruction Follow activity as directed Keep your appointments as scheduled Take your immunizations and boosters as scheduled If your symptoms worsen call your PCP, if no PCP go to Urgent Care Center or Emergency Room Smoking is Dangerous to Your Health. Avoid second hand smoke Call the 24-hour hour crisis hotline for domestic abuse at Tasha Beavers MD Nov 28, 2016 16:03
[2016-11-28] MEDS ORDERED: LACTOBACILLUS ACIDOPHILUS TAB PO SCH (17:00)
[2016-11-28] MEDS ORDERED: MORPHINE SULFATE 15 MG TAB PO SCH (18:00)
[2016-11-28] MEDS ORDERED: RESP: ALBUTEROL 2.5 MG/IPRATROPIUM 0.5 MG NEB (SCH) NEB (20:00)
[2016-11-28] MEDS ORDERED: APIXABAN 5 MG TABLET PO SCH (21:00)
[2016-11-28] MEDS ORDERED: DOXYCYCLINE HYCLATE 100 MG CAP PO SCH (21:00)
[2016-11-28] MEDS ORDERED: predniSONE 20 MG TAB PO SCH (21:00)
[2016-11-28] MEDS ORDERED: METOPROLOL TARTRATE 50 MG TAB PO SCH (21:00)
[2016-11-28] MEDS ORDERED: SODIUM CHLORIDE 0.9% FLUSH 10 ML FLUSH IV FLUSH SCH (21:00)
[2016-11-29] MEDS ORDERED: DILTIAZEM-CD 300 MG CAP ER PO SCH (09:00)
[2016-11-29] MEDS ORDERED: FLUTICASONE 100 MCG/VILANTEROL 25 MCG INHALER INH SCH (09:00)
[2016-11-29] MEDS ORDERED: MULTIVITAMIN TAB PO SCH (09:00)
== END 2016-11-28 16:33 | disposition home or self-care (01) ==
LOC: PHED 10:15 → PHEDA 12:59 → INTOOBSV 12:59 → PH5A 14:51
PROVIDERS: ADMIT Hospitalist; ATTEND Hospitalist
DX: J44.0 Chronic obstructive pulmonary disease with (acute) lower respiratory infection (principal); J44.1 Chronic obstructive pulmonary disease with (acute) exacerbation; J18.9 Pneumonia, unspecified organism; I48.91 Unspecified atrial fibrillation; I11.0 Hypertensive heart disease with heart failure; F41.9 Anxiety disorder, unspecified
CPT/HCPCS: 36600; 71010; 71260; 80053; 82805; 83880; 84443; 84484; 85025; 85610; 85730; 87040; 87804; 93005; 94640; 94664; 96365; 96375; 99285; G0378; J0696; J2930; Q9967

== ENCOUNTER 2017-01-30 10:15 | Emergency (ER) | payer MEDICARE, MEDICAID ==
[~2017-01-30] VITALS: Ht 175.3 cm; Wt 61.0 kg
[~2017-01-30 10:15] MED LIST changes: -FURO1TAB62 PO; -MORP60TA24 PO; +MSIR15 PO
[2017-01-30 10:24] VITALS: BP 125/61; PULSE 96; RESP 18; TEMP 98; O2SAT 100
[2017-01-30] MEDS ORDERED: SPIRCAP INH (10:45)
[2017-01-30] MEDS ORDERED: SODIUM CHLOR 0.9% 1000 ML INJ 1,000 ML IV ONE (10:53)
--- NOTE | 2017-01-30 10:59 | PD ---
HPI Chief Complaint: GI Complaint Time Seen by Provider: 10:32 Travel History International Travel<30 days: No Contact w/Intl Traveler<30days: No Traveled to known affect area: No History of Present Illness HPI The patient is a 66-year-old male who presents to the emergency department for shortness of breath, diarrhea, generalized weakness. The patient states she was admitted at [facility] one week ago for "double pneumonia" and spent one night in the hospital. The patient was discharged home on 2 antibiotics included a cephalosporin and Flagyl. The patient states he finished antibiotics, however, has now developed diarrhea. Patient describes the diarrhea as loose, brown, without any visible blood. The patient states every time he tries to eat or drink something he has an episode of diarrhea. He denies any nausea or vomiting. He also complains of shortness of breath, has a history of COPD. He states he is not on home oxygen. The patient was evaluated by his home health care nurse earlier today who advised to follow-up with his primary physician. 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 Symptoms are moderate, there are no current alleviating or exacerbating factors. The patient is also requesting a dose of morphine for his chronic right ankle pain, states he last took a morphine pill at 5 AM. PFSH Past Medical History Hx Anticoagulant Therapy: Yes (ELIQUIS) Arthritis: Yes Asthma: No Atrial Fibrillation: Yes Autoimmune Disease: No Blood Disorders: No Anxiety: Yes ("severe") Depression: No Heart Rhythm Problems: Yes (AFIB) Cancer: Yes (lung mass ,copd scar tissue) Cardiovascular Problems: Yes High Cholesterol: No Chemotherapy: No Chest Pain: No Congestive Heart Failure: Yes COPD: Yes Cerebrovascular Accident: No Diabetes: No Diminished Hearing: No Deep Vein Thrombosis: Yes (RLE) Endocrine: No Gastrointestinal Disorders: Yes GERD: No Glaucoma: No Genitourinary: No Headaches: No Hepatitis: Yes (C) Hiatal Hernia: No Heparin Induced Thrombocytopen: No Hypertension: Yes Immune Disorder: No Implanted Vascular Access Dvce: Yes Kidney Stones: No Musculoskeletal: Yes (RIGHT ANKLE MULTIPLE SURGERIES, PINS AND SCREWS, CHRONIC PAIN) Neurologic: Yes Psychiatric: Yes (PTSD) Reproductive: No Respiratory: Yes Immunizations Current: Yes Migraines: No Myocardial Infarction: No Pancreatitis: Yes Pneumonia: Yes Radiation Therapy: No Renal Failure: No Seizures: No Sickle Cell Disease: No Sleep Apnea: No Thyroid Disease: No Ulcer: No Past Surgical History Abdominal Surgery: No AICD: No Appendectomy: No Arteriovenous Shunt: No Body Medical Devices: PLATE/SCREWS FOR R/ANKLE Cardiac Surgery: No Cholecystectomy: No Ear Surgery: No Endocrine Surgery: No Eye Surgery: No Genitourinary Surgery: No Insulin Pump: No Joint Replacement: Yes (rt ankle) Neurologic Surgery: No Oral Surgery: Yes (TEETH REMOVED 2014, TONSILLECTOMY) Pacemaker: No Thoracic Surgery: No Tonsillectomy: Yes Other Surgery: Yes (left eye ) Social History Alcohol Use: No Tobacco Use: Yes (3-4 CIGARETTES PER DAY) Substance Use: No Allergies-Medications (Allergen,Severity, Reaction): Coded Allergies: codeine (Verified Allergy, Severe, TURN RED, SOB, HIVES, 01/30/17) ketoconazole (Verified Allergy, Intermediate, Rash, 01/30/17) ITCHING Reported Meds & Prescriptions Reported Meds & Active Scripts Active Diltiazem CD 24 HR 300 Mg Caper 300 Mg PO DAILY Eliquis (Apixaban) 5 Mg Tab 5 Mg PO BID Reported Spiriva Handihaler (Tiotropium Inh) 18 Mcg Cap Unknown Dose INH DAILY 1 capsule = 18 mcg Morphine IR (Morphine Sulfate) 15 Mg Tab 15 Mg PO QID Multiple Vitamin 1 Tab 1 Tab PO DAILY Lopressor (Metoprolol Tartrate) 50 Mg Tab 75 Mg PO BID Review of Systems Except as stated in HPI: all other systems reviewed are Neg General / Constitutional: No: Fever Cardiovascular: No: Chest Pain or Discomfort Respiratory: Positive: Cough, Shortness of Breath Gastrointestinal: Positive: Diarrhea, Abdominal Pain (intermittent cramping), No: Nausea, Vomiting Musculoskeletal: Positive: Weakness, Other (chronic right ankle pain) Physical Exam Narrative GENERAL: Awake, alert, nontoxic-appearing 66-year-old male who appears his stated age and is in no acute respiratory distress. SKIN: Focused skin assessment warm/dry. HEAD: Atraumatic. Normocephalic. EYES: Pupils equal and round. No scleral icterus. No injection or drainage. ENT: No nasal bleeding or discharge. Mucous membranes pink and moist. NECK: Trachea midline. No JVD. CARDIOVASCULAR: Regular rate and rhythm. No murmur appreciated. RESPIRATORY: No accessory muscle use. Prolonged expiratory phase with scattered wheezes. GASTROINTESTINAL: Abdomen soft, non-tender, nondistended. No rebound tenderness , guarding, or rigidity. MUSCULOSKELETAL: No obvious deformities. No clubbing. No cyanosis. No edema. NEUROLOGICAL: Awake and alert. No obvious cranial nerve deficits. Motor grossly within normal limits. Normal speech. PSYCHIATRIC: Appropriate mood and affect; insight and judgment normal. Data Data Last Documented VS Vital Signs Date Time Temp Pulse Resp B/P (MAP) Pulse Ox O2 Delivery O2 Flow Rate FiO2 01/30/17 12:17 74 12 111/74 (86) 100 01/30/17 11:42 Room Air 01/30/17 10:24 98.0 Orders Orders Complete Blood Count With Diff (01/30/17 10:53) Comprehensive Metabolic Panel (01/30/17 10:53) Lipase (01/30/17 10:53) Iv Access Insert/Monitor (01/30/17 10:53) Ecg Monitoring (01/30/17 10:53) Oximetry (01/30/17 10:53) Morphine Inj (Morphine Inj) (01/30/17 11:00) Ondansetron Inj (Zofran Inj) (01/30/17 11:00) Sodium Chlor 0.9% 1000 Ml Inj (Ns 1000 M (01/30/17 10:53) Sodium Chloride 0.9% Flush (Ns Flush) (01/30/17 11:00) C Diff Toxin Pcr (01/30/17 10:53) Chest, Single Ap (01/30/17 10:53) Lactic Acid (01/30/17 10:54) Methylprednisolone So Succ Inj (Solumedr (01/30/17 13:00) Albuterol-Ipratropium Neb (Duoneb Neb) (01/30/17 13:00) Ed Discharge Order (01/30/17 12:51) Labs Laboratory Tests Test 01/30/17 11:15 01/30/17 12:12 White Blood Count 9.6 TH/MM3 Red Blood Count 4.57 MIL/MM3 Hemoglobin 11.0 GM/DL Hematocrit 35.0 % Mean Corpuscular Volume 76.6 FL Mean Corpuscular Hemoglobin 24.0 PG Mean Corpuscular Hemoglobin Concent 31.4 % Red Cell Distribution Width 19.1 % Platelet Count 703 TH/MM3 Mean Platelet Volume 7.6 FL Neutrophils (%) (Auto) 60.2 % Lymphocytes (%) (Auto) 27.6 % Monocytes (%) (Auto) 8.8 % Eosinophils (%) (Auto) 0.8 % Basophils (%) (Auto) 2.6 % Neutrophils # (Auto) 5.7 TH/MM3 Lymphocytes # (Auto) 2.7 TH/MM3 Monocytes # (Auto) 0.8 TH/MM3 Eosinophils # (Auto) 0.1 TH/MM3 Basophils # (Auto) 0.3 TH/MM3 CBC Comment AUTO DIFF Differential Comment AUTO DIFF CONFIRMED Target Cells 1+ Ovalocytes 1+ Blood Urea Nitrogen 7 MG/DL Creatinine 0.68 MG/DL Random Glucose 74 MG/DL Total Protein 6.5 GM/DL Albumin 2.9 GM/DL Calcium Level 8.0 MG/DL Alkaline Phosphatase 71 U/L Aspartate Amino Transf (AST/SGOT) 49 U/L Alanine Aminotransferase (ALT/SGPT) 41 U/L Total Bilirubin 0.2 MG/DL Sodium Level 138 MEQ/L Potassium Level 3.7 MEQ/L Chloride Level 105 MEQ/L Carbon Dioxide Level 25.6 MEQ/L Anion Gap 7 MEQ/L Estimat Glomerular Filtration Rate 117 ML/MIN Lactic Acid Level 2.4 mmol/L Lipase 279 U/L MDM Medical Decision Making Medical Screen Exam Complete: Yes Emergency Medical Condition: Yes Medical Record Reviewed: Yes Interpretation(s) Chest x-ray reveals hyperinflation and chronic scarring most consistent with underlying emphysema. No acute pneumonia. Laboratory Tests Test 01/30/17 11:15 01/30/17 12:12 White Blood Count 9.6 TH/MM3 Red Blood Count 4.57 MIL/MM3 Hemoglobin 11.0 GM/DL Hematocrit 35.0 % Mean Corpuscular Volume 76.6 FL Mean Corpuscular Hemoglobin 24.0 PG Mean Corpuscular Hemoglobin Concent 31.4 % Red Cell Distribution Width 19.1 % Platelet Count 703 TH/MM3 Mean Platelet Volume 7.6 FL Neutrophils (%) (Auto) 60.2 % Lymphocytes (%) (Auto) 27.6 % Monocytes (%) (Auto) 8.8 % Eosinophils (%) (Auto) 0.8 % Basophils (%) (Auto) 2.6 % Neutrophils # (Auto) 5.7 TH/MM3 Lymphocytes # (Auto) 2.7 TH/MM3 Monocytes # (Auto) 0.8 TH/MM3 Eosinophils # (Auto) 0.1 TH/MM3 Basophils # (Auto) 0.3 TH/MM3 CBC Comment AUTO DIFF Differential Comment AUTO DIFF CONFIRMED Target Cells 1+ Ovalocytes 1+ Blood Urea Nitrogen 7 MG/DL Creatinine 0.68 MG/DL Random Glucose 74 MG/DL Total Protein 6.5 GM/DL Albumin 2.9 GM/DL Calcium Level 8.0 MG/DL Alkaline Phosphatase 71 U/L Aspartate Amino Transf (AST/SGOT) 49 U/L Alanine Aminotransferase (ALT/SGPT) 41 U/L Total Bilirubin 0.2 MG/DL Sodium Level 138 MEQ/L Potassium Level 3.7 MEQ/L Chloride Level 105 MEQ/L Carbon Dioxide Level 25.6 MEQ/L Anion Gap 7 MEQ/L Estimat Glomerular Filtration Rate 117 ML/MIN Lactic Acid Level 2.4 mmol/L Lipase 279 U/L Differential Diagnosis Differential diagnosis includes COPD exacerbation, pneumonia, bronchitis, pulmonary embolism, medication side effect from antibiotics, C. difficile, enteritis, colitis, dehydration, electrolyte abnormality. Narrative Course IV was established, labs are drawn and sent, and the patient was placed on cardiac telemetry monitoring and continuous pulse oximetry monitoring. Chest x- rays obtained. The patient was administered morphine, Zofran, and IV fluids. Lipase and lactic acid were sent to lab. C. difficile PCR from stool was ordered. White count was unremarkable. Hemoglobin was 11.0. BUN and creatinine are unremarkable. Lactic acid is mildly elevated at 2.5, the patient did receive IV fluids. Patient's vitals are unremarkable, x-rays unremarkable, the patient just finished Flagyl, I doubt C. difficile. The patient will be placed on steroids for 5 days for his COPD, is advised to follow -up with his primary physician. Patient is stable for outpatient follow-up. Diagnosis Primary Impression: Acute exacerbation of chronic obstructive pulmonary disease (COPD) Additional Impression: Diarrhea Qualified Codes: R19.7 - Diarrhea, unspecified Patient Instructions: General Instructions Additional Instructions: Please provide the patient a copy of his x-ray results and lab results at discharge. Follow-up with your primary physician. Return if symptoms worsen or progress. Med/Other Pt SpecificInfo: Prescription(s) given Scripts Albuterol 18 GM Inh (Ventolin Hfa 18 GM Inh) 90 Mcg/Act Aer 2 PUFF INH Q6H Y for SHORTNESS OF BREATH, #1 INHALER 0 Refills Prov: Delano Terry MD 01/30/17 Prednisone (Deltasone) 20 Mg Tab 40 MG PO DAILY for 4 Days, #8 TAB 0 Refills Prov: Delano Terry MD 01/30/17 Disposition: 01 DISCHARGE HOME Condition: Stable Delano Terry MD Jan 30, 2017 10:59
[2017-01-30] MEDS ORDERED: MORPHINE SULFATE 4 MG/ML INJ IV PUSH ONE (11:00)
[2017-01-30] MEDS ORDERED: ONDANSETRON HCL 4 MG/2 ML VIAL IV PUSH ONE (11:00)
[2017-01-30] MEDS ORDERED: SODIUM CHLORIDE 0.9% FLUSH 10 ML FLUSH IVF PRN (11:00)
[2017-01-30 11:21] LABS: AUTOMATED NEUTROPHIL # 5.7 TH/MM3 (1.8-7.7); BASOPHIL # 0.3 TH/MM3 (0-0.2); BASOPHIL % 2.6 % (0.0-2.0); EOSINOPHIL # 0.1 TH/MM3 (0-0.4); EOSINOPHIL % 0.8 % (0.0-4.0); LYMPH % 27.6 % (9.0-44.0); LYMPHOCYTE # 2.7 TH/MM3 (1.0-4.8); MEAN CELL VOLUME 76.6 FL (80.0-100.0); MEAN CORPUSCULAR HGB CONC 31.4 % (32.0-36.0); MONO % 8.8 % (0.0-8.0); NEUT % 60.2 % (16.0-70.0); PLATELET COUNT 703 TH/MM3 (150-450); RED BLOOD COUNT 4.57 MIL/MM3 (4.50-5.90); RED CELL DISTRIBUTION WIDTH 19.1 % (11.6-17.2); WHITE BLOOD COUNT 9.6 TH/MM3 (4.0-11.0)
[2017-01-30 11:26] LABS: HEMO FLAGS AUTO DIFF
--- NOTE | 2017-01-30 11:35 | RADRPT ---
EXAM DATE/TIME: 01/30/2017 11:15 [facility] COMPARISON: CHEST SINGLE AP, November 28, 2016, 10:54. INDICATIONS : Short of breath MEDICAL HISTORY : Hypertension. Chronic obstructive pulmonary disease. Emphysema. Pneumonia, DVT SURGICAL HISTORY : None. ENCOUNTER: Initial ACUITY: 2 weeks PAIN SCORE: 0/10 LOCATION: Bilateral chest FINDINGS: 2 AP erect portable views of the chest were obtained and demonstrate mild hyperinflation. There is ch ronic scarring in the left upper lobe with patchy opacity again noted. There are no new infiltrates o r effusions. The heart size remains within normal limits. Atherosclerotic changes are again noted in the aorta. The bony thorax remains intact and there are ov erlying electrocardiogram leads. CONCLUSION: 1. Hyperinflation and chronic scarring most consistent with underlying emphysema. 2. No acute pneumonia. James Pugh MD on January 30, 2017 at 11:32 Board Certified Radiologist. This report was verified electronically.
[2017-01-30 11:42] VITALS: O2SAT 100
[2017-01-30 12:15] LABS: OVALOCYTES 1+ (NORMAL); SCAN/DIFF AUTO DIFF CONFIRMED; TARGET CELLS 1+ (NORMAL)
[2017-01-30 12:17] VITALS: BP 111/74; PULSE 74; RESP 12; O2SAT 100
[2017-01-30 12:28] LABS: CHLORIDE 105 MEQ/L (98-107); POTASSIUM 3.7 MEQ/L (3.5-5.1); SODIUM (NA) 138 MEQ/L (136-145)
[2017-01-30 12:33] LABS: ANION GAP 7 MEQ/L (5-15); BICARBONATE 25.6 MEQ/L (21.0-32.0); BLOOD UREA NITROGEN 7 MG/DL (7-18)
[2017-01-30 12:36] LABS: ALT (GPT) 41 U/L (12-78); AST (GOT) 49 U/L (15-37); GLOMERULAR FILTRATION RATE 117 ML/MIN (>89)
[2017-01-30 12:38] LABS: TOTAL BILIRUBIN ADULT 0.2 MG/DL (0.2-1.0)
[2017-01-30 12:39] LABS: ALKALINE PHOSPHATASE 71 U/L (45-117)
[2017-01-30] MEDS ORDERED: PRED-503 PO (12:53)
[2017-01-30] MEDS ORDERED: VENTAER INH (12:53)
[2017-01-30] MEDS ORDERED: methylPREDNISolone SOD SUCC 125 MG/2 ML VIAL IV PUSH ONE (13:00)
[2017-01-30] MEDS ORDERED: RESP: ALBUTEROL 2.5 MG/IPRATROPIUM 0.5 MG NEB (SCH) NEB ONE (13:00)
== END 2017-01-30 13:23 | disposition home or self-care (01) ==
LOC: PHED 10:15
DX: J44.1 Chronic obstructive pulmonary disease with (acute) exacerbation (principal); R19.7 Diarrhea, unspecified
CPT/HCPCS: 71010; 80053; 83605; 83690; 85025; 94664; 96361; 96374; 96375; 99284; J2270; J2405; J2930; J7030

== ENCOUNTER 2017-02-02 16:06 | Emergency (ER) | payer MEDICAID, MEDICARE ==
[~2017-02-02] VITALS: Ht 177.8 cm; Wt 55.0 kg
[~2017-02-02 16:06] MED LIST changes: -FLUT1INH INH; -LACTCAP8 PO; +PRED-503 PO; +SPIRCAP INH; +VENTAER INH
[2017-02-02 16:08] VITALS: BP 142/77; PULSE 124; RESP 20; TEMP 97.9; O2SAT 100
[2017-02-02 16:15] VITALS: BP 129/73; PULSE 115; RESP 32; O2SAT 100
[2017-02-02] MEDS ORDERED: DILTIAZEM HCL 25 MG/5 ML VIAL IV ONE (16:30)
--- NOTE | 2017-02-02 16:31 | PD ---
HPI Chief Complaint: Respiratory Distress Time Seen by Provider: 16:22 Travel History International Travel<30 days: No Contact w/Intl Traveler<30days: No Traveled to known affect area: No History of Present Illness HPI PATIENT C/O CHEST TIGHTNESS AND PALPITATIONS, ONSET ABOUT 2HRS AND NOT RESOLVING WHICH IS UNUSUAL FOR HIM. STATED TAHT RECENTLY WAS HOSPITLITZED FOR PNA AND TREATED AND DISCHARGE. PCP: DR GARCIA FROM [facility] CARDIO: DR FULTON PMHX: AFIB ON ELIQUIS, CHF, PNA, COPD PFSH Past Medical History Hx Anticoagulant Therapy: Yes (ELIQUIS) Arthritis: Yes Asthma: No Atrial Fibrillation: Yes Autoimmune Disease: No Blood Disorders: No Anxiety: Yes ("severe") Depression: No Heart Rhythm Problems: Yes (AFIB) Cancer: Yes (lung mass ,copd scar tissue) Cardiovascular Problems: Yes High Cholesterol: No Chemotherapy: No Chest Pain: No Congestive Heart Failure: Yes COPD: Yes Cerebrovascular Accident: No Diabetes: No Diminished Hearing: No Deep Vein Thrombosis: Yes (RLE) Endocrine: No Gastrointestinal Disorders: Yes GERD: No Glaucoma: No Genitourinary: No Headaches: No Hepatitis: Yes (C) Hiatal Hernia: No Heparin Induced Thrombocytopen: No Hypertension: Yes Immune Disorder: No Implanted Vascular Access Dvce: Yes Kidney Stones: No Musculoskeletal: Yes (RIGHT ANKLE MULTIPLE SURGERIES, PINS AND SCREWS, CHRONIC PAIN) Neurologic: Yes Psychiatric: Yes (PTSD) Reproductive: No Respiratory: Yes Immunizations Current: Yes Migraines: No Myocardial Infarction: No Pancreatitis: Yes Pneumonia: Yes Radiation Therapy: No Renal Failure: No Seizures: No Sickle Cell Disease: No Sleep Apnea: No Thyroid Disease: No Ulcer: No Tetanus Vaccination: < 5 Years Influenza Vaccination: Yes Past Surgical History Abdominal Surgery: No AICD: No Appendectomy: No Arteriovenous Shunt: No Body Medical Devices: PLATE/SCREWS FOR R/ANKLE Cardiac Surgery: No Cholecystectomy: No Ear Surgery: No Endocrine Surgery: No Eye Surgery: No Genitourinary Surgery: No Hysterectomy: Yes (AFIB/ HBP) Insulin Pump: No Joint Replacement: Yes (rt ankle) Neurologic Surgery: No Oral Surgery: Yes (TEETH REMOVED 2014, TONSILLECTOMY) Pacemaker: No Thoracic Surgery: No Tonsillectomy: Yes Other Surgery: Yes (left eye ) Social History Alcohol Use: No Tobacco Use: Yes (3-4 CIGARETTES PER DAY) Substance Use: No Allergies-Medications (Allergen,Severity, Reaction): Coded Allergies: codeine (Verified Allergy, Severe, TURN RED, SOB, HIVES, 02/02/17) ketoconazole (Verified Allergy, Intermediate, Rash, 02/02/17) ITCHING Reported Meds & Prescriptions Reported Meds & Active Scripts Active Diltiazem CD 24 HR 300 Mg Caper 300 Mg PO DAILY Eliquis (Apixaban) 5 Mg Tab 5 Mg PO BID Reported Spiriva Handihaler (Tiotropium Inh) 18 Mcg Cap Unknown Dose INH DAILY 1 capsule = 18 mcg Morphine IR (Morphine Sulfate) 15 Mg Tab 15 Mg PO QID Multiple Vitamin 1 Tab 1 Tab PO DAILY Lopressor (Metoprolol Tartrate) 50 Mg Tab 75 Mg PO BID Review of Systems Except as stated in HPI: all other systems reviewed are Neg General / Constitutional: No: Fever Eyes: No: Visual changes HENT: No: Headaches Cardiovascular: Positive: Chest Pain or Discomfort, Palpitations Respiratory: Positive: Shortness of Breath Gastrointestinal: No: Abdominal Pain Genitourinary: No: Dysuria Musculoskeletal: No: Pain Skin: No Rash Neurologic: No: Weakness Psychiatric: No: Depression Endocrine: No: Polydipsia Hematologic/Lymphatic: No: Easy Bruising Physical Exam Narrative GENERAL: SKIN: Warm and dry. HEAD: Atraumatic. Normocephalic. EYES: Pupils equal and round. No scleral icterus. No injection or drainage. ENT: No nasal bleeding or discharge. Mucous membranes pink and moist. NECK: Trachea midline. No JVD. CARDIOVASCULAR: IRREGULAR rhythm WITH TACHYCARDIC RATE RESPIRATORY: No accessory muscle use. Clear to auscultation. Breath sounds equal bilaterally. EXCEPT RONCHI ON RLL GASTROINTESTINAL: Abdomen soft, non-tender, nondistended. Hepatic and splenic margins not palpable. MUSCULOSKELETAL: Extremities without clubbing, cyanosis, or edema. No obvious deformities. NEUROLOGICAL: Awake and alert. No obvious cranial nerve deficits. Motor grossly within normal limits. Five out of 5 muscle strength in the arms and legs. Normal speech. PSYCHIATRIC: Appropriate mood and affect; insight and judgment normal. Data Data Last Documented VS Vital Signs Date Time Temp Pulse Resp B/P (MAP) Pulse Ox O2 Delivery O2 Flow Rate FiO2 02/02/17 20:01 02/02/17 19:03 98 18 100 Room Air 02/02/17 16:08 97.9 Orders Orders Electrocardiogram (02/02/17 16:22) B-Type Natriuretic Peptide (02/02/17 16:22) Ckmb (Isoenzyme) Profile (02/02/17 16:22) Complete Blood Count With Diff (02/02/17 16:22) Comprehensive Metabolic Panel (02/02/17 16:22) Prothrombin Time / Inr (Pt) (02/02/17 16:22) Act Partial Throm Time (Ptt) (02/02/17 16:22) Troponin I (02/02/17 16:22) Lipase (02/02/17 16:22) Chest, Single Ap (02/02/17 16:22) Ecg Monitoring (02/02/17 16:) Bilateral Bp Monitoring (02/02/17 16:22) Iv Access Insert/Monitor (02/02/17 16:22) Oximetry (02/02/17 16:22) Oxygen Administration (02/02/17 16:22) Diltiazem Inj (Cardizem Inj) (02/02/17 16:30) Ed Discharge Order (02/02/17 19:18) Labs Laboratory Tests Test 02/02/17 16:40 White Blood Count 12.4 TH/MM3 Red Blood Count 4.73 MIL/MM3 Hemoglobin 11.3 GM/DL Hematocrit 36.1 % Mean Corpuscular Volume 76.3 FL Mean Corpuscular Hemoglobin 23.8 PG Mean Corpuscular Hemoglobin Concent 31.2 % Red Cell Distribution Width 19.9 % Platelet Count 593 TH/MM3 Mean Platelet Volume 7.6 FL Neutrophils (%) (Auto) 55.8 % Lymphocytes (%) (Auto) 31.4 % Monocytes (%) (Auto) 11.8 % Eosinophils (%) (Auto) 0.4 % Basophils (%) (Auto) 0.6 % Neutrophils # (Auto) 6.9 TH/MM3 Lymphocytes # (Auto) 3.9 TH/MM3 Monocytes # (Auto) 1.5 TH/MM3 Eosinophils # (Auto) 0.0 TH/MM3 Basophils # (Auto) 0.1 TH/MM3 CBC Comment DIFF FINAL Differential Comment Prothrombin Time 11.5 SEC Prothromb Time International Ratio 1.0 RATIO Activated Partial Thromboplast Time 27.6 SEC Blood Urea Nitrogen 10 MG/DL Creatinine 0.75 MG/DL Random Glucose 88 MG/DL Total Protein 6.8 GM/DL Albumin 3.1 GM/DL Calcium Level 8.5 MG/DL Alkaline Phosphatase 82 U/L Aspartate Amino Transf (AST/SGOT) 31 U/L Alanine Aminotransferase (ALT/SGPT) 39 U/L Total Bilirubin 0.2 MG/DL Sodium Level 138 MEQ/L Potassium Level 3.7 MEQ/L Chloride Level 102 MEQ/L Carbon Dioxide Level 26.3 MEQ/L Anion Gap 10 MEQ/L Estimat Glomerular Filtration Rate 105 ML/MIN Total Creatine Kinase 84 U/L Troponin I LESS THAN 0.02 NG/ML B-Type Natriuretic Peptide 280 PG/ML Lipase 367 U/L MDM Medical Decision Making Medical Screen Exam Complete: Yes Emergency Medical Condition: Yes Medical Record Reviewed: Yes Interpretation(s) AFIB WITH RVR, 109, NO STEMI PATTERN Differential Diagnosis stemi v anemia v pulm edema v pna v afib with rvt Narrative Course after thorough evaluation patient already anticoagulated and found to be well controlled after cardizem dose...no major e/o anemia/pna/ptx/pulm edema so will d/c home in stable condition Diagnosis Primary Impression: AFIB WITH RVR RESPONDED TO CARDIZEM Patient Instructions: A-fib (Atrial Fibrillation) (ED), General Instructions Disposition: 01 DISCHARGE HOME Condition: Stable Todd Rivera MD Feb 02, 2017 16:31
--- NOTE | 2017-02-02 17:01 | RADRPT ---
EXAM DATE/TIME: 02/02/2017 16:37 [facility] COMPARISON: CHEST SINGLE AP, January 29, 2016, 19:33. CHEST SINGLE AP, April 22, 2016, 18:29. CT THORAX W C ONTRAST, November 28, 2016, 11:44. CHEST SINGLE AP, January 30, 2017, 11:15. INDICATIONS : Chest pain MEDICAL HISTORY : Hypertension. Chronic obstructive pulmonary disease. Emphysema Pneumonia, DVT SURGICAL HISTORY : None. ENCOUNTER: Initial ACUITY: 1 week PAIN SCORE: 4/10 LOCATION: chest FINDINGS: 2 portable frontal views of the chest show a long-standing wedge-shaped area of parenchymal consolida tion within the left upper lobe. This is unchanged. The remaining lungs are clear. No acute infiltrat e or effusion. Heart normal in size. Bony structures are unremarkable. CONCLUSION: 1. Chronic consolidation within the left upper lobe likely relating to scarring. 2. No acute infiltrate. Blane Cordova Jr., MD on February 02, 2017 at 16:58 Board Certified Radiologist. This report was verified electronically.
[2017-02-02 17:05] LABS: AUTOMATED NEUTROPHIL # 6.9 TH/MM3 (1.8-7.7); BASOPHIL # 0.1 TH/MM3 (0-0.2); BASOPHIL % 0.6 % (0.0-2.0); EOSINOPHIL % 0.4 % (0.0-4.0); HEMATOCRIT 36.1 % (39.0-51.0); HEMO FLAGS DIFF FINAL; LYMPH % 31.4 % (9.0-44.0); LYMPHOCYTE # 3.9 TH/MM3 (1.0-4.8); MEAN CELL VOLUME 76.3 FL (80.0-100.0); MEAN CORPUSCULAR HEMOGLOBIN 23.8 PG (27.0-34.0); MEAN CORPUSCULAR HGB CONC 31.2 % (32.0-36.0); MONO % 11.8 % (0.0-8.0); NEUT % 55.8 % (16.0-70.0); PLATELET COUNT 593 TH/MM3 (150-450); RED BLOOD COUNT 4.73 MIL/MM3 (4.50-5.90); RED CELL DISTRIBUTION WIDTH 19.9 % (11.6-17.2); WHITE BLOOD COUNT 12.4 TH/MM3 (4.0-11.0)
[2017-02-02 17:16] LABS: APTT (PATIENT) 27.6 SEC (24.3-30.1); PROTHROMBIN TIME - PATIENT 11.5 SEC (9.8-11.6)
[2017-02-02 17:26] LABS: ALT (GPT) 39 U/L (12-78); ANION GAP 10 MEQ/L (5-15); AST (GOT) 31 U/L (15-37); BICARBONATE 26.3 MEQ/L (21.0-32.0); BLOOD UREA NITROGEN 10 MG/DL (7-18); CHLORIDE 102 MEQ/L (98-107); GLOMERULAR FILTRATION RATE 105 ML/MIN (>89); POTASSIUM 3.7 MEQ/L (3.5-5.1); SODIUM (NA) 138 MEQ/L (136-145)
[2017-02-02 17:30] VITALS: BP 131/77; PULSE 91; RESP 24; O2SAT 100
[2017-02-02 17:30] LABS: ALKALINE PHOSPHATASE 82 U/L (45-117); TOTAL BILIRUBIN ADULT 0.2 MG/DL (0.2-1.0)
[2017-02-02 17:32] LABS: CREATINE KINASE 84 U/L (39-308)
[2017-02-02 19:03] VITALS: BP 128/72; PULSE 98; RESP 18; O2SAT 100
--- NOTE | 2017-02-03 18:35 | EKG ---
Date Performed: 02/02/2017 Time Performed: 16:18:12 PTAGE: 66 years EKG: ATRIAL FIBRILLATION WITH RAPID VENTRICULAR RESPONSE ABNORMAL RHYTHM ECG PREVIOUS TRACING : 11/28/2016 10.51 Increased ventricular rate from the prior tracing DOCTOR: Hector Oliver Interpretating Date/Time 02/03/2017 18:33:28
== END 2017-02-02 20:09 | disposition home or self-care (01) ==
LOC: NEPE 16:06
DX: I48.91 Unspecified atrial fibrillation (principal); R00.0 Tachycardia, unspecified; R07.89 Other chest pain; R94.31 Abnormal electrocardiogram [ECG] [EKG]; I11.0 Hypertensive heart disease with heart failure; I50.9 Heart failure, unspecified; J44.9 Chronic obstructive pulmonary disease, unspecified; F43.10 Post-traumatic stress disorder, unspecified; Z87.19 Personal history of other diseases of the digestive system
CPT/HCPCS: 71010; 80053; 82550; 83690; 83880; 84484; 85025; 85610; 85730; 93005; 96374

== ENCOUNTER 2017-02-22 12:59 | Emergency (ER) | payer MEDICARE ==
[~2017-02-22] VITALS: Ht 175.3 cm; Wt 62.0 kg
[~2017-02-22 12:59] MED LIST changes: -PRED-503 PO; -VENTAER INH
[2017-02-22 13:05] VITALS: BP 135/84; PULSE 79; RESP 21; TEMP 97.6; O2SAT 100
--- NOTE | 2017-02-22 13:19 | PD ---
HPI Chief Complaint: Respiratory Distress Time Seen by Provider: 13:05 Travel History International Travel<30 days: No Contact w/Intl Traveler<30days: No Traveled to known affect area: No History of Present Illness HPI 66-year-old male with history of A. fib on eloquis, COPD, CABG, currently being treated for pneumonia, presents emergency department for evaluation of his symptoms not improving. He does not feel they are getting worse however he thought that they would be getting better by now. He did recently finish his steroid that was prescribed. Denies fever or chills. No chest pain or tightness. Patient states he does have a moderately productive cough. He has no other symptoms reported this time. PFSH Past Medical History Hx Anticoagulant Therapy: Yes (ELIQUIS) Arthritis: Yes Asthma: No Atrial Fibrillation: Yes Autoimmune Disease: No Blood Disorders: No Anxiety: Yes ("severe") Depression: No Heart Rhythm Problems: Yes (AFIB) Cancer: Yes (lung mass ,copd scar tissue) Cardiovascular Problems: Yes High Cholesterol: No Chemotherapy: No Chest Pain: No Congestive Heart Failure: Yes COPD: Yes Cerebrovascular Accident: No Diabetes: No Diminished Hearing: No Deep Vein Thrombosis: Yes (RLE) Endocrine: No Gastrointestinal Disorders: Yes GERD: No Glaucoma: No Genitourinary: No Headaches: No Hepatitis: Yes (C) Hiatal Hernia: No Heparin Induced Thrombocytopen: No Hypertension: Yes Immune Disorder: No Implanted Vascular Access Dvce: Yes Kidney Stones: No Musculoskeletal: Yes (RIGHT ANKLE MULTIPLE SURGERIES, PINS AND SCREWS, CHRONIC PAIN) Neurologic: Yes Psychiatric: Yes (PTSD) Reproductive: No Respiratory: Yes Immunizations Current: Yes Migraines: No Myocardial Infarction: No Pancreatitis: Yes Pneumonia: Yes Radiation Therapy: No Renal Failure: No Seizures: No Sickle Cell Disease: No Sleep Apnea: No Thyroid Disease: No Ulcer: No Past Surgical History Abdominal Surgery: No AICD: No Appendectomy: No Arteriovenous Shunt: No Body Medical Devices: PLATE/SCREWS FOR R/ANKLE Cardiac Surgery: No Cholecystectomy: No Ear Surgery: No Endocrine Surgery: No Eye Surgery: No Genitourinary Surgery: No Hysterectomy: Yes (AFIB/ HBP) Insulin Pump: No Joint Replacement: Yes (rt ankle) Neurologic Surgery: No Oral Surgery: Yes (TEETH REMOVED 2014, TONSILLECTOMY) Pacemaker: No Thoracic Surgery: No Tonsillectomy: Yes Other Surgery: Yes (left eye ) Social History Alcohol Use: No Tobacco Use: Yes (3-4 CIGARETTES PER DAY) Substance Use: No Allergies-Medications (Allergen,Severity, Reaction): Coded Allergies: codeine (Verified Allergy, Severe, TURN RED, SOB, HIVES, 02/02/17) ketoconazole (Verified Allergy, Intermediate, Rash, 02/02/17) ITCHING Reported Meds & Prescriptions Reported Meds & Active Scripts Active Zithromax Z-Ad (Azithromycin) 250 Mg Dspk 250 Mg PO DIRECTED 500 MG (2 tabs) day 1, then 1 tab days 2-5. Prednisone 50 Mg Tab 50 Mg PO DAILY 5 Days Diltiazem CD 24 HR 300 Mg Caper 300 Mg PO DAILY Eliquis (Apixaban) 5 Mg Tab 5 Mg PO BID Reported Klonopin (Clonazepam) 1 Mg Tab 1 Mg PO TID Probiotic Daily (Probiotic Product) Unknown Strength Cap 1 Cap PO DAILY Vitamin C (Ascorbic Acid) 1,000 Mg Tablet.er 1,000 Mg PO DAILY Spiriva Handihaler (Tiotropium Inh) 18 Mcg Cap 2 Puff INH DAILY 1 capsule = 18 mcg Morphine IR (Morphine Sulfate) 15 Mg Tab 15 Mg PO Q4HR PRN Multiple Vitamin 1 Tab 1 Tab PO DAILY Lopressor (Metoprolol Tartrate) 50 Mg Tab 75 Mg PO BID Review of Systems Except as stated in HPI: all other systems reviewed are Neg Physical Exam Narrative GENERAL: Chronically ill-appearing male patient, sitting up in bed, in no acute distress. SKIN: Warm and dry. HEAD: Atraumatic. Normocephalic. EYES: Pupils equal and round. No scleral icterus. No injection or drainage. ENT: No nasal bleeding or discharge. Mucous membranes pink and moist. NECK: Trachea midline. No JVD. CARDIOVASCULAR: Regular rate and rhythm. RESPIRATORY: No accessory muscle use. Diminished, coarse to auscultation. Breath sounds equal bilaterally. GASTROINTESTINAL: Abdomen soft, non-tender, nondistended. Hepatic and splenic margins not palpable. MUSCULOSKELETAL: Extremities without clubbing, cyanosis, or edema. No obvious deformities. NEUROLOGICAL: Awake and alert. No obvious cranial nerve deficits. Motor grossly within normal limits. Five out of 5 muscle strength in the arms and legs. Normal speech. PSYCHIATRIC: Appropriate mood and affect; insight and judgment normal. Data Data Last Documented VS Vital Signs Date Time Temp Pulse Resp B/P (MAP) Pulse Ox O2 Delivery O2 Flow Rate FiO2 02/22/17 17:11 02/22/17 16:17 86 20 99 Room Air 02/22/17 13:05 97.6 Orders Orders Complete Blood Count With Diff (02/22/17 13:19) Comprehensive Metabolic Panel (02/22/17 13:19) B-Type Natriuretic Peptide (02/22/17 13:19) Act Partial Throm Time (Ptt) (02/22/17 13:19) Prothrombin Time / Inr (Pt) (02/22/17 13:19) Iv Access Insert/Monitor (02/22/17 13:19) Electrocardiogram (02/22/17 13:19) Ecg Monitoring (02/22/17 13:19) Oximetry (02/22/17 13:19) Oxygen Administration (02/22/17 13:19) Chest, Single Ap (02/22/17 13:19) Sodium Chloride 0.9% Flush (Ns Flush) (02/22/17 13:30) Methylprednisolone So Succ Inj (Solumedr (02/22/17 13:30) Albuterol-Ipratropium Neb (Duoneb Neb) (02/22/17 13:30) Lipase (02/22/17 13:19) Ketorolac Inj (Toradol Inj) (02/22/17 14:00) Morphine Inj (Morphine Inj) (02/22/17 14:00) Ondansetron Inj (Zofran Inj) (02/22/17 14:00) Ed Discharge Order (02/22/17 15:44) Labs Laboratory Tests Test 02/22/17 13:55 White Blood Count 8.0 TH/MM3 Red Blood Count 4.29 MIL/MM3 Hemoglobin 10.5 GM/DL Hematocrit 33.0 % Mean Corpuscular Volume 77.1 FL Mean Corpuscular Hemoglobin 24.5 PG Mean Corpuscular Hemoglobin Concent 31.7 % Red Cell Distribution Width 20.8 % Platelet Count 406 TH/MM3 Mean Platelet Volume 7.8 FL Neutrophils (%) (Auto) 56.0 % Lymphocytes (%) (Auto) 35.5 % Monocytes (%) (Auto) 7.6 % Eosinophils (%) (Auto) 0.7 % Basophils (%) (Auto) 0.2 % Neutrophils # (Auto) 4.5 TH/MM3 Lymphocytes # (Auto) 2.9 TH/MM3 Monocytes # (Auto) 0.6 TH/MM3 Eosinophils # (Auto) 0.1 TH/MM3 Basophils # (Auto) 0.0 TH/MM3 CBC Comment DIFF FINAL Differential Comment Prothrombin Time 12.0 SEC Prothromb Time International Ratio 1.2 RATIO Activated Partial Thromboplast Time 25.5 SEC Blood Urea Nitrogen 10 MG/DL Creatinine 0.63 MG/DL Random Glucose 95 MG/DL Total Protein 6.5 GM/DL Albumin 3.0 GM/DL Calcium Level 8.3 MG/DL Alkaline Phosphatase 70 U/L Aspartate Amino Transf (AST/SGOT) 31 U/L Alanine Aminotransferase (ALT/SGPT) 33 U/L Total Bilirubin 0.2 MG/DL Sodium Level 142 MEQ/L Potassium Level 3.3 MEQ/L Chloride Level 107 MEQ/L Carbon Dioxide Level 29.2 MEQ/L Anion Gap 6 MEQ/L Estimat Glomerular Filtration Rate 128 ML/MIN B-Type Natriuretic Peptide 240 PG/ML Lipase 181 U/L [facility] Medical Decision Making Medical Screen Exam Complete: Yes Emergency Medical Condition: Yes Medical Record Reviewed: Yes Differential Diagnosis Pneumonia versus COPD exacerbation versus CHF Narrative Course 66-year-old male presents to emergency department for evaluation of symptoms not improving since being diagnosed with pneumonia. He is currently on doxycycline. He has finished his steroid course. He does not appear toxic. Laboratory Tests Test 02/22/17 13:55 White Blood Count 8.0 TH/MM3 Red Blood Count 4.29 MIL/MM3 Hemoglobin 10.5 GM/DL Hematocrit 33.0 % Mean Corpuscular Volume 77.1 FL Mean Corpuscular Hemoglobin 24.5 PG Mean Corpuscular Hemoglobin Concent 31.7 % Red Cell Distribution Width 20.8 % Platelet Count 406 TH/MM3 Mean Platelet Volume 7.8 FL Neutrophils (%) (Auto) 56.0 % Lymphocytes (%) (Auto) 35.5 % Monocytes (%) (Auto) 7.6 % Eosinophils (%) (Auto) 0.7 % Basophils (%) (Auto) 0.2 % Neutrophils # (Auto) 4.5 TH/MM3 Lymphocytes # (Auto) 2.9 TH/MM3 Monocytes # (Auto) 0.6 TH/MM3 Eosinophils # (Auto) 0.1 TH/MM3 Basophils # (Auto) 0.0 TH/MM3 CBC Comment DIFF FINAL Differential Comment Prothrombin Time 12.0 SEC Prothromb Time International Ratio 1.2 RATIO Activated Partial Thromboplast Time 25.5 SEC Blood Urea Nitrogen 10 MG/DL Creatinine 0.63 MG/DL Random Glucose 95 MG/DL Total Protein 6.5 GM/DL Albumin 3.0 GM/DL Calcium Level 8.3 MG/DL Alkaline Phosphatase 70 U/L Aspartate Amino Transf (AST/SGOT) 31 U/L Alanine Aminotransferase (ALT/SGPT) 33 U/L Total Bilirubin 0.2 MG/DL Sodium Level 142 MEQ/L Potassium Level 3.3 MEQ/L Chloride Level 107 MEQ/L Carbon Dioxide Level 29.2 MEQ/L Anion Gap 6 MEQ/L Estimat Glomerular Filtration Rate 128 ML/MIN B-Type Natriuretic Peptide 240 PG/ML Lipase 181 U/L Last Impressions Chest X-Ray 02/22/17 0175 Signed Impressions: Service Date/Time: Wednesday, February 22, 2017 13:43 - CONCLUSION: 1. New small infiltrate in the left lung base compared to the prior studies. 2. Stable infiltrate in the left upper lung. Yon Rush MD He has refused DuoNeb treatments here. He is given additional Solu-Medrol. After review of the lab work and radiology studies, I have discussed the patient with my attending physician. We'll start him on azithromycin Z-Ad, encouraged follow-up with his primary care provider. He agrees to return immediately with any acute worsening of symptoms. Diagnosis Primary Impression: Pneumonia Qualified Codes: J18.1 - Lobar pneumonia, unspecified organism Referrals: Primary Care Physician Patient Instructions: Community Acquired Pneumonia (ED), General Instructions, Moderate Sedation in Children (ED) Additional Instructions: Humidified air may help to alleviate symptoms Follow-up with a primary care provider Return immediately with any acute worsening symptoms Med/Other Pt SpecificInfo: Prescription(s) given Scripts Azithromycin (Zithromax Z-Ad) 250 Mg Dspk 250 MG PO DIRECTED for Infection, #1 DSPK 0 Refills 500 MG (2 tabs) day 1, then 1 tab days 2-5. Prov: Callie Hook 02/22/17 Prednisone (Prednisone) 50 Mg Tab 50 MG PO DAILY for 5 Days, #5 TAB 0 Refills Prov: Callie Hook 02/22/17 Disposition: 01 DISCHARGE HOME Condition: Stable Callie Hook Feb 22, 2017 13:19
[2017-02-22 13:22] VITALS: RESP 21; O2SAT 100
[2017-02-22] MEDS: RESP: ALBUTEROL 2.5 MG/IPRATROPIUM 0.5 MG NEB (SCH) INH ×2 (13:30→13:35)
[2017-02-22] MEDS ORDERED: methylPREDNISolone SOD SUCC 125 MG/2 ML VIAL IV PUSH ONE (13:30)
[2017-02-22] MEDS ORDERED: SODIUM CHLORIDE 0.9% FLUSH 10 ML FLUSH IVF PRN (13:30)
[2017-02-22] MEDS ORDERED: PROBCAP28 PO (14:00)
[2017-02-22] MEDS ORDERED: MORPHINE SULFATE 2 MG/ML INJ IV PUSH ONE (14:00)
[2017-02-22] MEDS ORDERED: ASCO100029 PO (14:00)
[2017-02-22] MEDS ORDERED: CLON1 PO (14:00)
[2017-02-22] MEDS ORDERED: ONDANSETRON HCL 4 MG/2 ML VIAL IV PUSH ONE (14:00)
[2017-02-22] MEDS ORDERED: KETOROLAC TROMETHAMINE 30 MG/ML (IVP) VIAL IV PUSH ONE (14:00)
[2017-02-22 14:02] LABS: AUTOMATED NEUTROPHIL # 4.5 TH/MM3 (1.8-7.7); BASOPHIL % 0.2 % (0.0-2.0); EOSINOPHIL # 0.1 TH/MM3 (0-0.4); EOSINOPHIL % 0.7 % (0.0-4.0); HEMO FLAGS DIFF FINAL; LYMPH % 35.5 % (9.0-44.0); LYMPHOCYTE # 2.9 TH/MM3 (1.0-4.8); MEAN CELL VOLUME 77.1 FL (80.0-100.0); MEAN CORPUSCULAR HEMOGLOBIN 24.5 PG (27.0-34.0); MEAN CORPUSCULAR HGB CONC 31.7 % (32.0-36.0); MONO % 7.6 % (0.0-8.0); PLATELET COUNT 406 TH/MM3 (150-450); RED BLOOD COUNT 4.29 MIL/MM3 (4.50-5.90); RED CELL DISTRIBUTION WIDTH 20.8 % (11.6-17.2)
[2017-02-22 14:11] LABS: APTT (PATIENT) 25.5 SEC (24.3-30.1); INTERNATIONAL NORMALIZED RATIO 1.2 RATIO
--- NOTE | 2017-02-22 14:23 | RADRPT ---
EXAM DATE/TIME: 02/22/2017 13:43 [facility] COMPARISON: CT THORAX W CONTRAST, November 28, 2016, 11:44. CHEST SINGLE AP, January 30, 2017, 11:15. CHEST S STEVE AP, February 02, 2017, 16:37. INDICATIONS : Shortness of breath for 1 week. MEDICAL HISTORY : Hypertension. Congestive heart failure. Chronic obstructive pulmonary disease. A fib. Pneumonia, DVT. SURGICAL HISTORY : None. ENCOUNTER: Initial ACUITY: 1 week PAIN SCORE: 0/10 LOCATION: Bilateral chest FINDINGS: The right lung remains clear and well-aerated. There is a stable infiltrate in the left upper lung wh ich is unchanged compared to the prior studies. There is a new mild infiltrate in the left lung base. The heart size is stable. There are no pleural effusions or pulmonary edema. The bony structures are stable. CONCLUSION: 1. New small infiltrate in the left lung base compared to the prior studies. 2. Stable infiltrate in the left upper lung. Yon Rush MD on February 22, 2017 at 14:20 Board Certified Radiologist. This report was verified electronically.
[2017-02-22 14:38] LABS: ALT (GPT) 33 U/L (12-78); ANION GAP 6 MEQ/L (5-15); AST (GOT) 31 U/L (15-37); BICARBONATE 29.2 MEQ/L (21.0-32.0); BLOOD UREA NITROGEN 10 MG/DL (7-18); CHLORIDE 107 MEQ/L (98-107); GLOMERULAR FILTRATION RATE 128 ML/MIN (>89); POTASSIUM 3.3 MEQ/L (3.5-5.1); SODIUM (NA) 142 MEQ/L (136-145)
[2017-02-22 14:41] LABS: ALKALINE PHOSPHATASE 70 U/L (45-117); TOTAL BILIRUBIN ADULT 0.2 MG/DL (0.2-1.0)
[2017-02-22] MEDS ORDERED: PRED50 PO (15:48)
[2017-02-22] MEDS ORDERED: ZITHTAB PO (15:48)
[2017-02-22 16:17] VITALS: BP 124/79; PULSE 86; RESP 20; O2SAT 99
--- NOTE | 2017-02-23 18:10 | EKG ---
Date Performed: 02/22/2017 Time Performed: 13:13:53 PTAGE: 66 years EKG: ATRIAL FIBRILLATION Compared to previous tracing, ventricular response to atrial fibrillati on is slower ABNORMAL RHYTHM ECG PREVIOUS TRACING : 02/02/2017 16.18 DOCTOR: Andre Shine Interpretating Date/Time 02/23/2017 18:09:59
== END 2017-02-22 17:10 | disposition home or self-care (01) ==
LOC: NEPE 12:59
DX: J18.9 Pneumonia, unspecified organism (principal); I48.91 Unspecified atrial fibrillation; R94.31 Abnormal electrocardiogram [ECG] [EKG]; J44.9 Chronic obstructive pulmonary disease, unspecified; I11.0 Hypertensive heart disease with heart failure; I50.9 Heart failure, unspecified; F43.10 Post-traumatic stress disorder, unspecified; Z86.718 Personal history of other venous thrombosis and embolism; Z87.19 Personal history of other diseases of the digestive system
CPT/HCPCS: 71010; 80053; 83690; 83880; 85025; 85610; 85730; 93005; 96374; 96375; 99285; J1885; J2270; J2405; J2930

== ENCOUNTER 2017-03-01 11:30 | Observation (INO) | payer MEDICARE ==
[2017-03-01] VITALS (9 sets, daily range): BP systolic 105–118; BP diastolic 53–78; PULSE 60–87; RESP 17–20; TEMP 97–98.2; O2SAT 97–100
[~2017-03-01] VITALS: Ht 175.3 cm; Wt 63.4 kg
[~2017-03-01 11:30] MED LIST changes: +ASCO100029 PO; +CLON1 PO; +PRED50 PO; +PROBCAP28 PO; +ZITHTAB PO
[2017-03-01] MEDS ORDERED: DOXY100C PO (13:22)
[2017-03-01] MEDS ORDERED: AMIO0.1T PO (13:22)
[2017-03-01] MEDS: RESP: ALBUTEROL 2.5 MG/IPRATROPIUM 0.5 MG NEB (SCH) INH (13:41)
[2017-03-01] MEDS ORDERED: methylPREDNISolone SOD SUCC 125 MG/2 ML VIAL IV PUSH ONE (13:45)
[2017-03-01] MEDS ORDERED: SODIUM CHLORIDE 0.9% FLUSH 10 ML FLUSH IVF PRN (13:45)
--- NOTE | 2017-03-01 13:46 | PD ---
HPI Chief Complaint: Respiratory Symptoms Time Seen by Provider: 13:31 Travel History International Travel<30 days: No Contact w/Intl Traveler<30days: No Traveled to known affect area: No History of Present Illness HPI 66-year-old male patient with history of COPD, CHF, hypertension, presents to the ER today because of several days history of increased shortness of breath which will not go away with his primary. He has been coughing and having some chest discomfort which he states he usually gets with previous COPD issues. He states that he has had a few episodes of diarrhea, but denies any fevers, vomiting, or other issues. Modifying Factors: None Associated Signs & Symptoms: Shortness of breath, coughing, diarrhea Risk Factors: COPD PFSH Past Medical History Hx Anticoagulant Therapy: Yes (ELIQUIS) Arthritis: Yes Asthma: No Atrial Fibrillation: Yes Autoimmune Disease: No Blood Disorders: No Anxiety: Yes ("severe") Depression: No Heart Rhythm Problems: Yes (AFIB) Cancer: Yes (lung mass ,copd scar tissue) Cardiovascular Problems: Yes High Cholesterol: No Chemotherapy: No Chest Pain: No Congestive Heart Failure: Yes COPD: Yes Cerebrovascular Accident: No Diabetes: No Diminished Hearing: No Deep Vein Thrombosis: Yes (RLE) Endocrine: No Gastrointestinal Disorders: Yes GERD: No Glaucoma: No Genitourinary: No Headaches: No Hepatitis: Yes (hep C) Hiatal Hernia: No Heparin Induced Thrombocytopen: No Hypertension: Yes Immune Disorder: No Implanted Vascular Access Dvce: Yes Kidney Stones: No Musculoskeletal: Yes (RIGHT ANKLE MULTIPLE SURGERIES, PINS AND SCREWS, CHRONIC PAIN) Neurologic: Yes Psychiatric: Yes (PTSD) Reproductive: No Respiratory: Yes Immunizations Current: Yes Migraines: No Myocardial Infarction: No Pancreatitis: Yes Pneumonia: Yes Radiation Therapy: No Renal Failure: No Seizures: No Sickle Cell Disease: No Sleep Apnea: No Thyroid Disease: No Ulcer: No Past Surgical History Abdominal Surgery: No AICD: No Appendectomy: No Arteriovenous Shunt: No Body Medical Devices: PLATE/SCREWS FOR R/ANKLE Cardiac Surgery: No Cholecystectomy: No Ear Surgery: No Endocrine Surgery: No Eye Surgery: No Genitourinary Surgery: No Hysterectomy: Yes (AFIB/ HBP) Insulin Pump: No Joint Replacement: Yes (rt ankle x4) Neurologic Surgery: No Oral Surgery: Yes (TEETH REMOVED 2014, ) Pacemaker: No Thoracic Surgery: No Tonsillectomy: Yes Other Surgery: Yes (left eye ) Social History Alcohol Use: No Tobacco Use: No Substance Use: No Allergies-Medications (Allergen,Severity, Reaction): Coded Allergies: codeine (Verified Allergy, Severe, TURN RED, SOB, HIVES, 03/01/17) ketoconazole (Verified Allergy, Intermediate, Rash, 03/01/17) ITCHING Reported Meds & Prescriptions Reported Meds & Active Scripts Active Diltiazem CD 24 HR 300 Mg Caper 300 Mg PO DAILY Eliquis (Apixaban) 5 Mg Tab 5 Mg PO BID Reported Amiodarone (Amiodarone HCl) 100 Mg Tab 100 Mg PO BID Doxycycline Hyclate 100 Mg Cap 100 Mg PO BID Klonopin (Clonazepam) 1 Mg Tab 1 Mg PO TID Probiotic Daily (Probiotic Product) Unknown Strength Cap 1 Cap PO DAILY Vitamin C (Ascorbic Acid) 1,000 Mg Tablet.er 1,000 Mg PO DAILY Spiriva Handihaler (Tiotropium Inh) 18 Mcg Cap 2 Puff INH DAILY 1 capsule = 18 mcg Morphine IR (Morphine Sulfate) 15 Mg Tab 15 Mg PO Q4HR PRN Multiple Vitamin 1 Tab 1 Tab PO DAILY Lopressor (Metoprolol Tartrate) 50 Mg Tab 75 Mg PO BID Review of Systems Except as stated in HPI: all other systems reviewed are Neg Physical Exam Narrative GENERAL: Well-developed elderly white male patient currently in mild respiratory distress. Awake and oriented 3. SKIN: Focused skin assessment warm/dry. HEAD: Atraumatic. Normocephalic. EYES: Pupils equal and round. No scleral icterus. No injection or drainage. ENT: No nasal bleeding or discharge. Mucous membranes pink and moist. NECK: Trachea midline. No JVD. CARDIOVASCULAR: Regular rate and rhythm. No murmur appreciated. RESPIRATORY: Mild accessory muscle use. Wheezing throughout bilaterally. Breath sounds equal bilaterally. GASTROINTESTINAL: Abdomen soft, non-tender, nondistended. Hepatic and splenic margins not palpable. MUSCULOSKELETAL: No obvious deformities. No clubbing. No cyanosis. No edema. NEUROLOGICAL: Awake and alert. No obvious cranial nerve deficits. Motor grossly within normal limits. Normal speech. PSYCHIATRIC: Appropriate mood and affect; insight and judgment normal. Data Data Last Documented VS Vital Signs Date Time Temp Pulse Resp B/P (MAP) Pulse Ox O2 Delivery O2 Flow Rate FiO2 03/01/17 14:07 77 18 118/71 (87) 99 Room Air 03/01/17 11:40 98.2 Orders Orders Electrocardiogram (03/01/17 13:23) Complete Blood Count With Diff (03/01/17 13:23) Basic Metabolic Panel (Bmp) (03/01/17 13:23) Ckmb (Isoenzyme) Profile (03/01/17 13:23) Troponin I (03/01/17 13:23) Chest, Single Ap (03/01/17 13:23) Iv Access Insert/Monitor (03/01/17 13:23) Ecg Monitoring (03/01/17 13:23) Oxygen Administration (03/01/17 13:23) Oximetry (03/01/17 13:23) B-Type Natriuretic Peptide (03/01/17 13:31) Sodium Chloride 0.9% Flush (Ns Flush) (03/01/17 13:45) Methylprednisolone So Succ Inj (Solumedr (03/01/17 13:45) Albuterol-Ipratropium Neb (Duoneb Neb) (03/01/17 13:45) Acetamin-Hydrocod 325-5 Mg ([place] 5-325 (03/01/17 14:30) Lactic Acid Sepsis Protocol (03/01/17 14:56) Blood Culture (03/01/17 14:56) Blood Glucose (03/01/17 14:56) Cefepime Inj (Maxipime Inj) (03/01/17 14:56) Azithromycin Inj (Zithromax Inj) (03/01/17 14:56) Admit Order (Ed Use Only) (03/01/17 15:28) Labs Laboratory Tests Test 03/01/17 13:57 White Blood Count 10.1 TH/MM3 Red Blood Count 4.09 MIL/MM3 Hemoglobin 9.6 GM/DL Hematocrit 30.6 % Mean Corpuscular Volume 74.8 FL Mean Corpuscular Hemoglobin 23.6 PG Mean Corpuscular Hemoglobin Concent 31.5 % Red Cell Distribution Width 19.6 % Platelet Count 433 TH/MM3 Mean Platelet Volume 7.6 FL Neutrophils (%) (Auto) 53.3 % Lymphocytes (%) (Auto) 32.0 % Monocytes (%) (Auto) 9.1 % Eosinophils (%) (Auto) 1.7 % Basophils (%) (Auto) 3.9 % Neutrophils # (Auto) 5.4 TH/MM3 Lymphocytes # (Auto) 3.2 TH/MM3 Monocytes # (Auto) 0.9 TH/MM3 Eosinophils # (Auto) 0.2 TH/MM3 Basophils # (Auto) 0.4 TH/MM3 CBC Comment AUTO DIFF Differential Comment AUTO DIFF CONFIRMED Blood Urea Nitrogen 12 MG/DL Creatinine 0.61 MG/DL Random Glucose 90 MG/DL Calcium Level 8.3 MG/DL Sodium Level 136 MEQ/L Potassium Level 4.3 MEQ/L Chloride Level 103 MEQ/L Carbon Dioxide Level 26.1 MEQ/L Anion Gap 7 MEQ/L Estimat Glomerular Filtration Rate 133 ML/MIN Total Creatine Kinase 92 U/L Troponin I LESS THAN 0.02 NG/ML B-Type Natriuretic Peptide 220 PG/ML MDM Medical Decision Making Medical Screen Exam Complete: Yes Emergency Medical Condition: Yes Medical Record Reviewed: Yes Interpretation(s) EKG shows A. fib with slow ventricular response at a rate of 60 bpm. No signs of acute ST-T changes. Laboratory Tests Test 03/01/17 13:57 Red Blood Count 4.09 MIL/MM3 (4.50-5.90) Hemoglobin 9.6 GM/DL (13.0-17.0) Hematocrit 30.6 % (39.0-51.0) Mean Corpuscular Volume 74.8 FL (80.0-100.0) Mean Corpuscular Hemoglobin 23.6 PG (27.0-34.0) Mean Corpuscular Hemoglobin Concent 31.5 % (32.0-36.0) Red Cell Distribution Width 19.6 % (11.6-17.2) Monocytes (%) (Auto) 9.1 % (0.0-8.0) Basophils (%) (Auto) 3.9 % (0.0-2.0) Basophils # (Auto) 0.4 TH/MM3 (0-0.2) Calcium Level 8.3 MG/DL (8.5-10.1) Troponin I LESS THAN 0.02 NG/ML B-Type Natriuretic Peptide 220 PG/ML (0-100) Last 24 hours Impressions Chest X-Ray 03/01/17 1323 Signed Impressions: Service Date/Time: Wednesday, March 01, 2017 13:43 - CONCLUSION: Bibasilar patchiness consistent with possible pneumonia. Clinical correlation is recommended. Stable left upper lung field patchiness consistent with scarring and/or superimposed infiltrate. Michael Monteiro MD Differential Diagnosis Coughing, shortness of breath, diarrhea: COPD exacerbation versus pneumonia versus CHF Narrative Course Chest x-rays showing signs of increased infiltrates on both sides concerning for underlying pneumonia. BNP is 200. Patient was initially given Solu-Medrol and nebulizers with no significant improvement in wheezing. He apparently has been on doxycycline for 2 weeks already from [facility] and had just finished his last dose today. At this point, he states he still not feeling well, and unfortunately lives with his ex- who smokes heavily. He is having chest discomfort as well. Lab work and cardiac enzymes were unremarkable. Patient was given IV and to ask after blood cultures were drawn. At this point, my plan would be to admit him for further treatment. Case was discussed with Dr. Beavers for admission. Diagnosis Primary Impression: Chest pain Additional Impression: Pneumonia Admitting Information Admitting Physician Requests: Admit Lucia Helton MD Mar 01, 2017 13:46
--- NOTE | 2017-03-01 13:59 | RADRPT ---
EXAM DATE/TIME: 03/01/2017 13:43 [place] COMPARISON: CT THORAX W CONTRAST, November 28, 2016, 11:44. CHEST SINGLE AP, February 22, 2017, 13:43. INDICATIONS : Short of breath, chest pain MEDICAL HISTORY : Chronic obstructive pulmonary disease. Congestive heart failure. SURGICAL HISTORY : None. ENCOUNTER: Initial ACUITY: 2 weeks PAIN SCORE: 9/10 LOCATION: Bilateral chest FINDINGS: Bibasilar patchiness is noted consistent with possible pneumonia. Clinical correlation is recommended . Left upper lung field patchiness is noted and is unchanged compared to previous examination consist ent with scarring and/or superimposed infiltrate. Underlying emphysema is unchanged. The heart is sta ble. CONCLUSION: Bibasilar patchiness consistent with possible pneumonia. Clinical correlation is jorden mmended. Stable left upper lung field patchiness consistent with scarring and/or superimposed infiltr ate. Michael Monteiro MD on March 01, 2017 at 13:55 Board Certified Radiologist. This report was verified electronically.
[2017-03-01 14:09] LABS: AUTOMATED NEUTROPHIL # 5.4 TH/MM3 (1.8-7.7); BASOPHIL # 0.4 TH/MM3 (0-0.2); BASOPHIL % 3.9 % (0.0-2.0); EOSINOPHIL # 0.2 TH/MM3 (0-0.4); EOSINOPHIL % 1.7 % (0.0-4.0); HEMATOCRIT 30.6 % (39.0-51.0); HEMOGLOBIN 9.6 GM/DL (13.0-17.0); LYMPHOCYTE # 3.2 TH/MM3 (1.0-4.8); MEAN CELL VOLUME 74.8 FL (80.0-100.0); MEAN CORPUSCULAR HEMOGLOBIN 23.6 PG (27.0-34.0); MEAN CORPUSCULAR HGB CONC 31.5 % (32.0-36.0); MEAN PLATELET VOLUME 7.6 FL (7.0-11.0); MONO % 9.1 % (0.0-8.0); MONOCYTE # 0.9 TH/MM3 (0-0.9); NEUT % 53.3 % (16.0-70.0); PLATELET COUNT 433 TH/MM3 (150-450); RED BLOOD COUNT 4.09 MIL/MM3 (4.50-5.90); RED CELL DISTRIBUTION WIDTH 19.6 % (11.6-17.2); WHITE BLOOD COUNT 10.1 TH/MM3 (4.0-11.0)
[2017-03-01 14:17] LABS: CHLORIDE 103 MEQ/L (98-107); SODIUM (NA) 136 MEQ/L (136-145)
[2017-03-01 14:20] LABS: BICARBONATE 26.1 MEQ/L (21.0-32.0); CALCIUM 8.3 MG/DL (8.5-10.1); GLUCOSE,RANDOM 90 MG/DL (74-106)
[2017-03-01 14:21] LABS: BLOOD UREA NITROGEN 12 MG/DL (7-18)
[2017-03-01 14:24] LABS: CREATININE 0.61 MG/DL (0.60-1.30); GLOMERULAR FILTRATION RATE 133 ML/MIN (>89)
[2017-03-01 14:28] LABS: TROPONIN I LESS THAN 0.02 NG/ML (0.02-0.05)
[2017-03-01] MEDS ORDERED: ACETAMINOPHEN/HYDROcodone 325 MG/5 MG TAB PO ONE (14:30)
[2017-03-01] MEDS ORDERED: CEFEPIME INJ 2,000 MG in SODIUM CHLORIDE 0.9% INJ 100 ML IV STA (14:56)
[2017-03-01] MEDS ORDERED: AZITHROMYCIN INJ 500 MG in SODIUM CHLOR 0.9% 250 ML INJ 250 ML IV STA (14:56)
[2017-03-01] MEDS ORDERED: RESP: ALBUTEROL 2.5 MG/3 ML NEB (PRN) INH (15:45)
[2017-03-01] MEDS ORDERED: SODIUM CHLORIDE 0.9% FLUSH 10 ML FLUSH IV FLUSH PRN (15:45)
[2017-03-01] MEDS ORDERED: LEVOFLOXACIN 750 MG PREMIX INJ 150 ML IV SCH (17:00)
[2017-03-01] MEDS ORDERED: KETOROLAC TROMETHAMINE 60 MG/2 ML (IM) VIAL IM PRN (17:00)
[2017-03-01] MEDS ORDERED: ENOXAPARIN SODIUM 40 MG/0.4 ML SYRINGE SQ SCH (17:00)
[2017-03-01] MEDS ORDERED: PILL SPLITTER OTHER PRN (17:15)
--- NOTE | 2017-03-01 17:23 | HHI.HP ---
[facility] Primary Care Physician Unknown Admission Diagnosis pneumonia/failed outpatient therapy Diagnoses: Chief Complaint: sob and chest pain Travel History International Travel<30 Days: No Contact w/Intl Traveler <30 Da: No Traveled to Known Affected Are: No History of Present Illness Cardiology [facility] marissa flores patient is a 66-year-old male with known COPD and anxiety who admits increased anxiety and chest discomfort for on day. He has not had relief with his usual morphine. The pain is at rest and there are no aggravating factors. He has had no fevers or chills. He said he received Doxycyline. He has had increased cough, so he came to the ER. He requests pain meds and cough medicine. EH will be admitted for observation. Review of Systems Constitutional: DENIES: Diaphoretic episodes, Fatigue, Fever, Weight gain, Weight loss, Chills, Dizziness, Change in appetite, Night Sweats Endocrine: DENIES: Heat/cold intolerance, Polydipsia, Polyuria, Polyphagia Eyes: DENIES: Blurred vision, Diplopia, Eye inflammation, Eye pain, Vision loss , Photosensitivity, Double Vision Ears, nose, mouth, throat: DENIES: Tinnitus, Hearing loss, Vertigo, Nasal discharge, Oral lesions, Throat pain, Hoarseness, Ear Pain, Running Nose, Epistaxis, Sinus Pain, Toothache, Odynophagia Respiratory: COMPLAINS OF: Cough, Shortness of breath, DENIES: Apneas, Snoring , Wheezing, Hemoptysis, Sputum production Cardiovascular: DENIES: Chest pain, Palpitations, Syncope, Dyspnea on Exertion , PND, Lower Extremity Edema, Orthopnea, Claudication Gastrointestinal: DENIES: Abdominal pain, Black stools, Bloody stools, Constipation, Diarrhea, Nausea, Vomiting, Difficulty Swallowing, Anorexia Genitourinary: DENIES: Sexual dysfunction, Urinary frequency, Urinary incontinence, Urgency, Hematuria, Dysuria, Nocturia, Penile Discharge, Testicular Pain, Testicular Swelling Musculoskeletal: COMPLAINS OF: Muscle aches, Back pain, DENIES: Joint pain, Stiffness, Joint Swelling, Neck pain Integumentary: DENIES: Abnormal pigmentation, Nail changes, Pruritus, Rash Hematologic/lymphatic: DENIES: Bruising, Lymphadenopathy Immunologic/allergic: DENIES: Eczema, Urticaria Neurologic: DENIES: Abnormal gait, Headache, Localized weakness, Paresthesias, Seizures, Speech Problems, Tremor, Poor Balance Psychiatric: COMPLAINS OF: Anxiety, DENIES: Confusion, Mood changes, Depression , Hallucinations, Agitation, Suicidal Ideation, Homicidal Ideation, Delusions Except as stated in HPI: all other systems reviewed are Neg Past Family Social History Past Medical History copd anxiety/depression ptsd narcotic dependence afib Past Surgical History dental extraction orthopedic Reported Medications reviewd in the emr, recent doxy Allergies: Coded Allergies: codeine (Verified Allergy, Severe, TURN RED, SOB, HIVES, 03/01/17) ketoconazole (Verified Allergy, Intermediate, Rash, 03/01/17) ITCHING Active Ordered Medications reviewed in the emr Family History mom at 57 from complications of burgers father unknown Social History quit smoking last month lives with ex who smokes no etoh Physical Exam Vital Signs Vital Signs Date Time Temp Pulse Resp B/P (MAP) Pulse Ox O2 Delivery O2 Flow Rate FiO2 03/01/17 14:07 77 18 118/71 (87) 99 Room Air 03/01/17 11:40 98.2 87 20 118/63 (81) 100 Physical Exam in no apparent distress. SKIN: No rashes, ecchymoses or lesions. Cool and dry. HEAD: Atraumatic. Normocephalic. No temporal or scalp tenderness. EYES: Pupils equal round and reactive. Extraocular motions intact. No scleral icterus. No injection or drainage. ENT: Nose without bleeding, purulent drainage or septal hematoma. Throat without erythema, tonsillar hypertrophy or exudate. Uvula midline. Airway patent. NECK: Trachea midline. No JVD or lymphadenopathy. Supple, nontender, no meningeal signs. CARDIOVASCULAR: Regular rate and rhythm without murmurs, gallops, or rubs. RESPIRATORY: faint bilat crackles GASTROINTESTINAL: Abdomen soft, non-tender, nondistended. No hepato-splenomegaly , or palpable masses. No guarding. MUSCULOSKELETAL: Extremities without clubbing, cyanosis, or edema. No joint tenderness, effusion, or edema noted. No calf tenderness. Negative Homans sign bilaterally. NEUROLOGICAL: Awake and alert. Cranial nerves II through XII intact. Motor and sensory grossly within normal limits. Five out of 5 muscle strength in all muscle groups. Normal speech. Laboratory Laboratory Tests Test 03/01/17 13:57 03/01/17 15:28 White Blood Count 10.1 Red Blood Count 4.09 Hemoglobin 9.6 Hematocrit 30.6 Mean Corpuscular Volume 74.8 Mean Corpuscular Hemoglobin 23.6 Mean Corpuscular Hemoglobin Concent 31.5 Red Cell Distribution Width 19.6 Platelet Count 433 Mean Platelet Volume 7.6 Neutrophils (%) (Auto) 53.3 Lymphocytes (%) (Auto) 32.0 Monocytes (%) (Auto) 9.1 Eosinophils (%) (Auto) 1.7 Basophils (%) (Auto) 3.9 Neutrophils # (Auto) 5.4 Lymphocytes # (Auto) 3.2 Monocytes # (Auto) 0.9 Eosinophils # (Auto) 0.2 Basophils # (Auto) 0.4 CBC Comment AUTO DIFF Differential Comment AUTO DIFF CONFIRMED Blood Urea Nitrogen 12 Creatinine 0.61 Random Glucose 90 Calcium Level 8.3 Sodium Level 136 Potassium Level 4.3 Chloride Level 103 Carbon Dioxide Level 26.1 Anion Gap 7 Estimat Glomerular Filtration Rate 133 Total Creatine Kinase 92 Troponin I LESS THAN 0.02 B-Type Natriuretic Peptide 220 Lactic Acid Level 1.5 Date/Time Source Procedure Growth Status 03/01/17 15:25 Blood Peripheral Aerobic Blood Culture Pending Received 03/01/17 15:25 Blood Peripheral Anaerobic Blood Culture Pending Received Result Diagram: 03/01/17 1357 03/01/17 1357 Imaging Last Impressions Chest X-Ray 03/01/17 1323 Signed Impressions: Service Date/Time: Wednesday, March 01, 2017 13:43 - CONCLUSION: Bibasilar patchiness consistent with possible pneumonia. Clinical correlation is recommended. Stable left upper lung field patchiness consistent with scarring and/or superimposed infiltrate. MD Angel Zamora VTE Risk Assessment Caprini VTE Risk Assessment: Mod/High Risk (score >= 2) VTE Pharm Contraindication: Coagulopathy,INR elevated Caprini Risk Assessment Model Point Value = 1 Point Value = 2 Point Value = 3 Point Value = 5 Age 41-60 Minor surgery BMI > 25 kg/m2 Swollen legs Varicose veins or History of unexplained or recurrent spontaneous Oral contraceptives or hormone replacement Sepsis (< 1 month) Serious lung disease, including pneumonia (< 1 month) Abnormal pulmonary function Acute myocardial infarction Congestive heart failure (< 1 month) History of inflammatory bowel disease Medical patient at bed rest Age 61-74 Arthroscopic surgery Major open surgery (> 45 min) Laparoscopic surgery (> 45 min) Malignancy Confined to bed (> 72 hours) Immobilizing plaster cast Central venous access Age >= 75 History of VTE Family history of VTE Factor V Leiden Prothrombin [id number] Lupus anticoagulant Anticardiolipin antibodies Elevated serum homocysteine Heparin-induced thrombocytopenia Other congenital or acquired thrombophilia Stroke (< 1 month) Elective arthroplasty Hip, pelvis, or leg fracture Acute spinal cord injury (< 1 month) Prophylaxis Regimen Total Risk Factor Score Risk Level Prophylaxis Regimen 0-1 Low Early ambulation 2 Moderate Order ONE of the following: *Sequential Compression Device (SCD) *Heparin 5000 units SQ BID 3-4 Higher Order ONE of the following medications: *Heparin 5000 units SQ TID *Enoxaparin/Lovenox 40 mg SQ daily (WT < 150 kg, CrCl > 30 mL/min) *Enoxaparin/Lovenox 30 mg SQ daily (WT < 150 kg, CrCl > 10-29 mL/min) *Enoxaparin/Lovenox 30 mg SQ BID (WT < 150 kg, CrCl > 30 mL/min) AND/OR *Sequential Compression Device (SCD) 5 or more Highest Order ONE of the following medications: *Heparin 5000 units SQ TID (Preferred with Epidurals) *Enoxaparin/Lovenox 40 mg SQ daily (WT < 150 kg, CrCl > 30 mL/min) *Enoxaparin/Lovenox 30 mg SQ daily (WT < 150 kg, CrCl > 10-29 mL/min) *Enoxaparin/Lovenox 30 mg SQ BID (WT < 150 kg, CrCl > 30 mL/min) AND *Sequential Compression Device (SCD) Assessment and Plan Problem List: (1) Anxiety ICD Code: F41.9 - Anxiety disorder, unspecified Status: Chronic Plan: Continue klonopin and ssri (2) COPD (chronic obstructive pulmonary disease) ICD Code: J44.9 - Chronic obstructive pulmonary disease, unspecified Status: Chronic Plan: with mild exacerbation duonebs, iv steroids and IV abx (3) Atrial fibrillation ICD Code: I48.91 - Atrial fibrillation Status: Chronic Plan: rate controlled don eliquis and cardizem (4) Pneumonia ICD Code: J18.9 - Pneumonia Status: Acute Plan: IV levaquin treat copd Code Status full code Discussed Condition With patient er md/rn likely d/c in Tasha Wayne MD Mar 01, 2017 17:23
[2017-03-01] MEDS ORDERED: KETOROLAC TROMETHAMINE 30 MG/ML (IVP) VIAL IV PUSH PRN (18:45)
[2017-03-01] MEDS: methylPREDNISolone SOD SUCC 125 MG/2 ML VIAL IV PUSH SCH (19:18)
[2017-03-01] MEDS: clonazePAM 1 MG TAB PO SCH (19:19)
[2017-03-01] MEDS: AMIODARONE 200 MG TAB PO SCH (20:49)
[2017-03-01] MEDS: APIXABAN 5 MG TABLET PO SCH (20:49)
[2017-03-01] MEDS: SODIUM CHLORIDE 0.9% FLUSH 10 ML FLUSH IV FLUSH SCH (20:50)
[2017-03-01] MEDS: METOPROLOL TARTRATE 50 MG TAB PO SCH (20:50)
[2017-03-01] MEDS: MORPHINE SULFATE 15 MG TAB PO PRN (20:57)
[2017-03-02] VITALS: BP 122/80; PULSE 63; RESP 18; TEMP 97.3; O2SAT 97
[2017-03-02] MEDS: methylPREDNISolone SOD SUCC 125 MG/2 ML VIAL IV PUSH SCH ×2 (01:48→09:16)
[2017-03-02] MEDS: MORPHINE SULFATE 15 MG TAB PO PRN ×2 (01:49→09:13)
[2017-03-02 08:00] VITALS: BP 119/71; PULSE 81; RESP 18; TEMP 97.6; O2SAT 99
[2017-03-02] MEDS ORDERED: MULTIVITAMIN TAB PO SCH (09:00)
[2017-03-02] MEDS ORDERED: ASCORBIC ACID 500 MG TAB PO SCH (09:00)
[2017-03-02] MEDS ORDERED: DILTIAZEM-CD 300 MG CAP ER PO SCH (09:00)
[2017-03-02] MEDS ORDERED: LACTOBACILLUS ACIDOPHILUS TAB PO SCH (09:00)
[2017-03-02] MEDS ORDERED: TIOTROPIUM BROMIDE 18 MCG INH INH SCH (09:00)
[2017-03-02] MEDS: clonazePAM 1 MG TAB PO SCH (09:13)
[2017-03-02] MEDS: METOPROLOL TARTRATE 50 MG TAB PO SCH (09:14)
[2017-03-02] MEDS: APIXABAN 5 MG TABLET PO SCH (09:15)
[2017-03-02] MEDS: AMIODARONE 200 MG TAB PO SCH (09:15)
[2017-03-02] MEDS: SODIUM CHLORIDE 0.9% FLUSH 10 ML FLUSH IV FLUSH SCH (09:16)
--- NOTE | 2017-03-02 10:18 | HHI.FF ---
Face to Face Verification Diagnosis: (1) Pneumonia Physical Therapy Order: Evaluate and Treat, Improve ambulation, Strength and gait training I have seen patient Ramirez Sun on 03/02/17. My clinical findings support the need for the requested home health care services because: Patient has SOB Deconditioned w/ increased weakness Limited ability to care for self I certify that my clinical findings support that this patient is homebound because: Hx COPD- exertion dyspnea/weakness Unsteady gait/balance Resumption of home health care. Sigrid Santos Mar 02, 2017 10:18 Tasha Beavers MD Mar 02, 2017 11:22
[2017-03-02] MEDS ORDERED: PRED10PA PO (11:21)
[2017-03-02] MEDS ORDERED: LEVO500T8 PO (11:21)
--- NOTE | 2017-03-02 11:24 | HHI.DS ---
Discharge Summary Admission Date Mar 01, 2017 at 15:29 Discharge Date: Mar 02, 2017 Admitting Diagnosis pneumonia/failed outpatient therapy (1) Anxiety ICD Code: F41.9 - Anxiety disorder, unspecified Status: Chronic (2) COPD (chronic obstructive pulmonary disease) ICD Code: J44.9 - Chronic obstructive pulmonary disease, unspecified Status: Chronic (3) Atrial fibrillation ICD Code: I48.91 - Atrial fibrillation Status: Chronic (4) Pneumonia ICD Code: J18.9 - Pneumonia Status: Acute Procedures None Brief History - From Admission Cardiology christine rairichie flores patient is a 66-year-old male with known COPD and anxiety who admits increased anxiety and chest discomfort for on day. He has not had relief with his usual morphine. The pain is at rest and there are no aggravating factors. He has had no fevers or chills. He said he received Doxycyline. He has had increased cough, so he came to the ER. He requests pain meds and cough medicine. EH will be admitted for observation. CBC/BMP: 03/01/17 1357 03/01/17 1357 Significant Findings Laboratory Tests Test 03/01/17 13:57 03/01/17 15:28 Red Blood Count 4.09 MIL/MM3 (4.50-5.90) Hemoglobin 9.6 GM/DL (13.0-17.0) Hematocrit 30.6 % (39.0-51.0) Mean Corpuscular Volume 74.8 FL (80.0-100.0) Mean Corpuscular Hemoglobin 23.6 PG (27.0-34.0) Mean Corpuscular Hemoglobin Concent 31.5 % (32.0-36.0) Red Cell Distribution Width 19.6 % (11.6-17.2) Monocytes (%) (Auto) 9.1 % (0.0-8.0) Basophils (%) (Auto) 3.9 % (0.0-2.0) Basophils # (Auto) 0.4 TH/MM3 (0-0.2) Calcium Level 8.3 MG/DL (8.5-10.1) Troponin I LESS THAN 0.02 NG/ML B-Type Natriuretic Peptide 220 PG/ML (0-100) Imaging Last Impressions Chest X-Ray 03/01/17 1323 Signed Impressions: Service Date/Time: Wednesday, March 01, 2017 13:43 - CONCLUSION: Bibasilar patchiness consistent with possible pneumonia. Clinical correlation is recommended. Stable left upper lung field patchiness consistent with scarring and/or superimposed infiltrate. Michael Monteiro MD PE at Discharge GENERAL: This is a well-nourished, well-developed patient, in no apparent distress. CARDIOVASCULAR: Regular rate and rhythm without murmurs, gallops, or rubs. RESPIRATORY: Clear to auscultation. Breath sounds equal bilaterally. No wheezes , rales, or rhonchi. GASTROINTESTINAL: Abdomen soft, non-tender, nondistended. Normal active bowel sounds MUSCULOSKELETAL: Extremities without clubbing, cyanosis, or edema. NEURO: Alert & Oriented x4 to person, place, time, situation. Moves all ext x4 Pt update on day of discharge Patient seen today in follow-up for discharge planning. No new issues Recklessly improved overnight Discharge plan discussed with patient and with medical team Hospital Course Is a 66-year-old gentleman was seen and treated for pneumonia. Apparently he had increase dyspnea and anxiety as well as pain. This improved with oral medications as well as IV Levaquin. Patient did require several doses of IV steroids and nebulizers with good improvement. He was discharged home to follow -up with his primary care physician Pt Condition on Discharge: Good Discharge Disposition: Discharge Home Discharge Time: <= 30 minutes Discharge Instructions DIET: Follow Instructions for: As Tolerated, No Restrictions Activities you can perform: Regular-No Restrictions Follow up Referrals: PCP Follow-up - 1 Week New Medications: Levofloxacin (Levofloxacin) 500 Mg Tablet 500 MG PO DAILY for Infection, #5 TAB 0 Refills Prednisone (21) 10 mg tab Dose Pack (Prednisone (21) 10 mg tab Dose Pack) 10 Mg Pack 10 MG PO DIRECTED for Inflammation, #1 DSPK 0 Refills Continued Medications: Amiodarone (Amiodarone) 100 Mg Tab 100 MG PO BID for Regulate Heart Beat, #60 TAB 0 Refills Apixaban (Eliquis) 5 Mg Tab 5 MG PO BID for Blood Clot Prevention, #60 TAB 12 Refills Ascorbic Acid (Vitamin C) 1,000 Mg Tablet.er 1000 MG PO DAILY for Nutritional Supplement Clonazepam (Klonopin) 1 Mg Tab 1 MG PO TID for Anxiety, #90 TAB 0 Refills Diltiazem CD 24 HR (Diltiazem CD 24 HR) 300 Mg Caper 300 MG PO DAILY, #30 CAP 6 Refills Metoprolol Tartrate (Lopressor) 50 Mg Tab 75 MG PO BID, #90 TAB 0 Refills Morphine IR (Morphine IR) 15 Mg Tab 15 MG PO Q4HR PRN for PAIN, TAB 0 Refills Multiple Vitamin (Multiple Vitamin) 1 Tab 1 TAB PO DAILY for Nutritional Supplement, TAB 0 Refills Probiotic Product (Probiotic Daily) Unknown Strength Cap 1 CAP PO DAILY for Nutritional Supplement Tiotropium Inh (Spiriva Handihaler) 18 Mcg Cap 2 PUFF INH DAILY for COPD, #30 CAP 0 Refills 1 capsule = 18 mcg Tasha Beavers MD Mar 02, 2017 11:24
--- NOTE | 2017-03-02 17:49 | EKG ---
Date Performed: 03/01/2017 Time Performed: 13:39:14 PTAGE: 66 years EKG: ATRIAL FIBRILLATION Since previous tracing, no significant change noted ABNORMAL RHYTHM ECG PREVIOUS TRACING : 02/22/2017 13.13 DOCTOR: Angelica Ross Interpretating Date/Time 03/02/2017 17:47:52
== END 2017-03-02 12:08 | disposition home or self-care (01) ==
LOC: PHED 11:30 → INTOOBSV 15:29 → PHEDA 15:29 → PH3B 18:18
PROVIDERS: ADMIT Hospitalist; ATTEND Hospitalist
DX: J18.9 Pneumonia, unspecified organism (principal); I48.91 Unspecified atrial fibrillation; J44.0 Chronic obstructive pulmonary disease with (acute) lower respiratory infection; I11.0 Hypertensive heart disease with heart failure; F41.9 Anxiety disorder, unspecified; R79.1 Abnormal coagulation profile; I50.9 Heart failure, unspecified; F43.10 Post-traumatic stress disorder, unspecified
CPT/HCPCS: 71010; 80048; 82550; 83605; 83880; 84484; 85025; 87040; 93005; 94640; 94664; 96365; 96366; 96367; 96375; 96376; 97162; 99285; G0378; G8987; G8988; J0456; J0692; J1885; J1956; J2930; J7050; J7613; 96374

== ENCOUNTER 2017-05-16 08:55 | Observation (INO) | payer MEDICARE, MEDICAID ==
[2017-05-16] VITALS (7 sets, daily range): BP systolic 118–137; BP diastolic 68–80; PULSE 75–98; RESP 16–20; TEMP 97.4–97.8; O2SAT 95–100
[~2017-05-16] VITALS: Ht 175.3 cm; Wt 65.5 kg
[~2017-05-16 08:55] MED LIST changes: +AMIO0.1T PO; +LEVO500T8 PO; +PRED10PA PO; -PRED50 PO; -ZITHTAB PO
[2017-05-16] MEDS ORDERED: SODIUM CHLOR 0.9% 1000 ML INJ 1,000 ML IV SCH ×2 (09:16→10:22)
--- NOTE | 2017-05-16 09:37 | PD ---
HPI Chief Complaint: GI Complaint Time Seen by Provider: 09:05 Travel History International Travel<30 days: No Contact w/Intl Traveler<30days: No Traveled to known affect area: No History of Present Illness HPI This is a 67-year-old male with history of COPD and C. difficile who presents for diarrhea and shortness of breath. He states over the last 4 days, he has had diffuse watery diarrhea. Minimal abdominal cramping without alana pain. No melena or hematochezia. He has also had shortness of breath and cough. He complains of left chest wall tightness with coughing. He is not otherwise having chest pain. He has had chills at home. No definite fevers. No nasal congestion, sore throat, rash, headache, neck pain or stiffness. No vomiting. Symptoms are moderate in severity. Onset gradual. No prior treatment. PFSH Past Medical History Hx Anticoagulant Therapy: Yes (ELIQUIS) Arthritis: No Asthma: No Atrial Fibrillation: Yes Autoimmune Disease: No Blood Disorders: No Anxiety: Yes Depression: Yes Heart Rhythm Problems: Yes (a fib) Cancer: No Cardiovascular Problems: Yes (AFIB/ HBP) High Cholesterol: No Chemotherapy: No Chest Pain: No Congestive Heart Failure: No COPD: Yes Cerebrovascular Accident: No Diabetes: No Diminished Hearing: No Deep Vein Thrombosis: Yes (RLE) Endocrine: Yes Gastrointestinal Disorders: Yes (pancreatitis) GERD: No Glaucoma: No Genitourinary: No Headaches: No Hepatitis: Yes (hep C) Hiatal Hernia: No Heparin Induced Thrombocytopen: No Hypertension: Yes Immune Disorder: No Implanted Vascular Access Dvce: Yes Kidney Stones: No Musculoskeletal: Yes (R ankle surgery) Neurologic: Yes Psychiatric: Yes Reproductive: No Respiratory: Yes (COPD) Immunizations Current: Yes Migraines: No Myocardial Infarction: No Pancreatitis: Yes Pneumonia: Yes Radiation Therapy: No Renal Failure: No Seizures: No Sickle Cell Disease: No Sleep Apnea: No Thyroid Disease: Yes (borerline overactive) Ulcer: No Tetanus Vaccination: < 5 Years Past Surgical History Abdominal Surgery: No AICD: No Appendectomy: No Arteriovenous Shunt: No Body Medical Devices: screws/pins in R ankle, metal in right femor into iliac crest Cardiac Surgery: No Cholecystectomy: No Ear Surgery: No Endocrine Surgery: No Eye Surgery: Yes (cataract L eye surg) Genitourinary Surgery: No Gynecologic Surgery: No Insulin Pump: No Joint Replacement: No Neurologic Surgery: No Oral Surgery: No Pacemaker: No Thoracic Surgery: No Tonsillectomy: Yes Other Surgery: Yes (left eye ) Social History Alcohol Use: No Tobacco Use: No Substance Use: No Allergies-Medications (Allergen,Severity, Reaction): Coded Allergies: codeine (Verified Allergy, Severe, TURN RED, SOB, HIVES, 05/16/17) ketoconazole (Verified Allergy, Intermediate, Rash, 05/16/17) ITCHING Reported Meds & Prescriptions Reported Meds & Active Scripts Active Diltiazem CD 24 HR 300 Mg Caper 300 Mg PO DAILY Eliquis (Apixaban) 5 Mg Tab 5 Mg PO BID Reported B12 (Cyanocobalamin) 1,000 Mcg Tab Klonopin (Clonazepam) 1 Mg Tab 1 Mg PO TID Probiotic Daily (Probiotic Product) Unknown Strength Cap 1 Cap PO DAILY Vitamin C (Ascorbic Acid) 1,000 Mg Tablet.er 1,000 Mg PO DAILY Spiriva Handihaler (Tiotropium Inh) 18 Mcg Cap 2 Puff INH DAILY 1 capsule = 18 mcg Morphine IR (Morphine Sulfate) 15 Mg Tab 15 Mg PO Q4HR PRN Multiple Vitamin 1 Tab 1 Tab PO DAILY Review of Systems Except as stated in HPI: all other systems reviewed are Neg Physical Exam Narrative GENERAL: Alert, well nourished, chronically ill appearing patient resting on the bed in no acute distress. Vital Signs reviewed SKIN: Focused skin assessment warm/dry. HEAD: Atraumatic. Normocephalic. EYES: Pupils equal and round. No scleral icterus. No injection or drainage. ENT: No nasal bleeding or discharge. Mucous membranes pink and dry NECK: Trachea midline. No JVD. Spontaneous, painless full range of motion with no meningismus CARDIOVASCULAR: Regular rate and rhythm. No murmur appreciated. Extremities warm and well perfused with bounding peripheral pulses RESPIRATORY: No accessory muscle use. Clear to auscultation. Breath sounds equal bilaterally. Breathing easily and speaking in full sentences GASTROINTESTINAL: Abdomen soft, non-tender, nondistended. Normal bowel sounds. No rigid, rebound, guarding. Negative Rodriguez sign. No tenderness at McBurney' s point MUSCULOSKELETAL: No obvious deformities. No clubbing. No cyanosis. No edema. Compartments are soft NEUROLOGICAL: Awake and alert. No obvious cranial nerve deficits. Motor grossly within normal limits. Normal speech. Sensation intact. Normal gait Data Data Last Documented VS Vital Signs Date Time Temp Pulse Resp B/P (MAP) Pulse Ox O2 Delivery O2 Flow Rate FiO2 05/16/17 11:31 75 125/73 (90) 100 05/16/17 10:10 16 Room Air 05/16/17 09:00 97.4 Orders Orders Complete Blood Count With Diff (05/16/17 09:16) Comprehensive Metabolic Panel (05/16/17 09:16) Prothrombin Time / Inr (Pt) (05/16/17 09:16) Act Partial Throm Time (Ptt) (05/16/17 09:16) Lactic Acid Sepsis Protocol (05/16/17 09:16) Magnesium (Mg) (05/16/17 09:16) Lipase (05/16/17 09:16) Ckmb (Isoenzyme) Profile (05/16/17 09:16) Troponin I (05/16/17 09:16) Urinalysis - C+S If Indicated (05/16/17 09:16) Influenzae A/B Antigen (05/16/17 09:16) Blood Culture (05/16/17 09:16) Chest, Pa & Lat (05/16/17 09:16) Ecg Monitoring (05/16/17 09:16) Iv Access Insert/Monitor (05/16/17 09:16) Oximetry (05/16/17 09:16) Sodium Chlor 0.9% 1000 Ml Inj (Ns 1000 M (05/16/17 09:16) C Diff Toxin Pcr (05/16/17 09:16) Stool Afb Culture And Stain (05/16/17 09:16) CKMB (05/16/17 09:37) CKMB% (05/16/17 09:37) Metronidazole 500 Mg Inj (Flagyl 500 Mg (05/16/17 10:30) Ceftriaxone Inj (Rocephin Inj) (05/16/17 10:30) Sodium Chlor 0.9% 1000 Ml Inj (Ns 1000 M (05/16/17 10:22) Azithromycin Inj (Zithromax Inj) (05/16/17 10:30) Morphine Inj (Morphine Inj) (05/16/17 11:15) Ondansetron Inj (Zofran Inj) (3/3/18 11:15) Labs Laboratory Tests Test 05/16/17 09:26 05/16/17 09:37 05/16/17 09:52 White Blood Count 7.3 TH/MM3 Red Blood Count 4.80 MIL/MM3 Hemoglobin 10.7 GM/DL Hematocrit 35.1 % Mean Corpuscular Volume 73.1 FL Mean Corpuscular Hemoglobin 22.3 PG Mean Corpuscular Hemoglobin Concent 30.5 % Red Cell Distribution Width 19.8 % Platelet Count 312 TH/MM3 Mean Platelet Volume 8.5 FL Neutrophils (%) (Auto) 56.5 % Lymphocytes (%) (Auto) 32.6 % Monocytes (%) (Auto) 7.6 % Eosinophils (%) (Auto) 1.5 % Basophils (%) (Auto) 1.8 % Neutrophils # (Auto) 4.1 TH/MM3 Lymphocytes # (Auto) 2.4 TH/MM3 Monocytes # (Auto) 0.6 TH/MM3 Eosinophils # (Auto) 0.1 TH/MM3 Basophils # (Auto) 0.1 TH/MM3 CBC Comment AUTO DIFF Differential Comment AUTO DIFF CONFIRMED Platelet Estimate NORMAL Platelet Morphology Comment NORMAL Ovalocytes 1+ Prothrombin Time 13.2 SEC Prothromb Time International Ratio 1.3 RATIO Activated Partial Thromboplast Time 28.2 SEC Blood Urea Nitrogen 10 MG/DL Creatinine 0.74 MG/DL Random Glucose 81 MG/DL Total Protein 7.1 GM/DL Albumin 3.2 GM/DL Calcium Level 8.3 MG/DL Magnesium Level 1.7 MG/DL Alkaline Phosphatase 84 U/L Aspartate Amino Transf (AST/SGOT) 40 U/L Alanine Aminotransferase (ALT/SGPT) 31 U/L Total Bilirubin 0.4 MG/DL Sodium Level 141 MEQ/L Potassium Level 3.8 MEQ/L Chloride Level 108 MEQ/L Carbon Dioxide Level 25.1 MEQ/L Anion Gap 8 MEQ/L Estimat Glomerular Filtration Rate 106 ML/MIN Total Creatine Kinase 114 U/L Creatine Kinase MB 1.5 NG/ML Troponin I LESS THAN 0.02 NG/ML Lipase 114 U/L Lactic Acid Level 3.1 mmol/L MDM Medical Decision Making Medical Screen Exam Complete: Yes Emergency Medical Condition: Yes Medical Record Reviewed: Yes Interpretation(s) Last 24 hours Impressions Chest X-Ray 05/16/17 0916 Signed Impressions: Service Date/Time: Tuesday, May 16, 2017 10:07 - CONCLUSION: 1. Infiltrates within the right upper lobe and left lower lobe are new. 2. Unchanged chronic consolidation within the left upper lobe. Blane Cordova Jr., MD Laboratory Tests Test 05/16/17 09:26 05/16/17 09:37 05/16/17 09:52 White Blood Count 7.3 TH/MM3 Red Blood Count 4.80 MIL/MM3 Hemoglobin 10.7 GM/DL Hematocrit 35.1 % Mean Corpuscular Volume 73.1 FL Mean Corpuscular Hemoglobin 22.3 PG Mean Corpuscular Hemoglobin Concent 30.5 % Red Cell Distribution Width 19.8 % Platelet Count 312 TH/MM3 Mean Platelet Volume 8.5 FL Neutrophils (%) (Auto) 56.5 % Lymphocytes (%) (Auto) 32.6 % Monocytes (%) (Auto) 7.6 % Eosinophils (%) (Auto) 1.5 % Basophils (%) (Auto) 1.8 % Neutrophils # (Auto) 4.1 TH/MM3 Lymphocytes # (Auto) 2.4 TH/MM3 Monocytes # (Auto) 0.6 TH/MM3 Eosinophils # (Auto) 0.1 TH/MM3 Basophils # (Auto) 0.1 TH/MM3 CBC Comment AUTO DIFF Differential Comment AUTO DIFF CONFIRMED Platelet Estimate NORMAL Platelet Morphology Comment NORMAL Ovalocytes 1+ Prothrombin Time 13.2 SEC Prothromb Time International Ratio 1.3 RATIO Activated Partial Thromboplast Time 28.2 SEC Blood Urea Nitrogen 10 MG/DL Creatinine 0.74 MG/DL Random Glucose 81 MG/DL Total Protein 7.1 GM/DL Albumin 3.2 GM/DL Calcium Level 8.3 MG/DL Magnesium Level 1.7 MG/DL Alkaline Phosphatase 84 U/L Aspartate Amino Transf (AST/SGOT) 40 U/L Alanine Aminotransferase (ALT/SGPT) 31 U/L Total Bilirubin 0.4 MG/DL Sodium Level 141 MEQ/L Potassium Level 3.8 MEQ/L Chloride Level 108 MEQ/L Carbon Dioxide Level 25.1 MEQ/L Anion Gap 8 MEQ/L Estimat Glomerular Filtration Rate 106 ML/MIN Total Creatine Kinase 114 U/L Creatine Kinase MB 1.5 NG/ML Troponin I LESS THAN 0.02 NG/ML Lipase 114 U/L Lactic Acid Level 3.1 mmol/L Differential Diagnosis Bronchitis, pneumonia, dehydration, Clostridium difficile colitis, gastroenteritis, UTI Narrative Course IV access was established. Labs, imaging were performed. Patient was given 2 L normal saline bolus. He had a large episode of watery diarrhea in the emergency department. This was sent for stool studies including C. difficile. He was kept on isolation. Patient's chest x-ray is suggestive of pneumonia. He states that he has not been on antibiotics or hospitalized in the last 60 days. He was given Rocephin, azithromycin and a dose of Flagyl to cover C. difficile. The patient appears grossly dehydrated. After receiving 2 L of normal saline, he has still not had a urine output in the emergency department. Plan for admission for further evaluation and care. Diagnosis Primary Impression: Pneumonia Qualified Codes: J18.9 - Pneumonia, unspecified organism Additional Impression: Diarrhea Qualified Codes: R19.7 - Diarrhea, unspecified Mirna Stevens MD May 16, 2017 09:37
[2017-05-16] MEDS ORDERED: CYAN1TAB24 (09:40)
[2017-05-16 09:48] LABS: AUTOMATED NEUTROPHIL # 4.1 TH/MM3 (1.8-7.7); BASOPHIL # 0.1 TH/MM3 (0-0.2); BASOPHIL % 1.8 % (0.0-2.0); EOSINOPHIL # 0.1 TH/MM3 (0-0.4); EOSINOPHIL % 1.5 % (0.0-4.0); HEMATOCRIT 35.1 % (39.0-51.0); HEMOGLOBIN 10.7 GM/DL (13.0-17.0); LYMPH % 32.6 % (9.0-44.0); LYMPHOCYTE # 2.4 TH/MM3 (1.0-4.8); MEAN CELL VOLUME 73.1 FL (80.0-100.0); MEAN CORPUSCULAR HEMOGLOBIN 22.3 PG (27.0-34.0); MEAN CORPUSCULAR HGB CONC 30.5 % (32.0-36.0); MEAN PLATELET VOLUME 8.5 FL (7.0-11.0); MONO % 7.6 % (0.0-8.0); MONOCYTE # 0.6 TH/MM3 (0-0.9); NEUT % 56.5 % (16.0-70.0); PLATELET COUNT 312 TH/MM3 (150-450); RED CELL DISTRIBUTION WIDTH 19.8 % (11.6-17.2); WHITE BLOOD COUNT 7.3 TH/MM3 (4.0-11.0)
[2017-05-16 09:55] LABS: CHLORIDE 108 MEQ/L (98-107); SODIUM (NA) 141 MEQ/L (136-145)
[2017-05-16 09:59] LABS: ALBUMIN 3.2 GM/DL (3.4-5.0); BICARBONATE 25.1 MEQ/L (21.0-32.0); BLOOD UREA NITROGEN 10 MG/DL (7-18); CALCIUM 8.3 MG/DL (8.5-10.1); GLUCOSE,RANDOM 81 MG/DL (74-106)
[2017-05-16 10:00] LABS: MAGNESIUM 1.7 MG/DL (1.5-2.5)
[2017-05-16 10:02] LABS: ALT (GPT) 31 U/L (12-78); AST (GOT) 40 U/L (15-37); CREATININE 0.74 MG/DL (0.60-1.30); GLOMERULAR FILTRATION RATE 106 ML/MIN (>89)
[2017-05-16 10:04] LABS: OVALOCYTES 1+ (NORMAL); TOTAL BILIRUBIN ADULT 0.4 MG/DL (0.2-1.0); TOTAL PROTEIN 7.1 GM/DL (6.4-8.2)
[2017-05-16 10:05] LABS: ALKALINE PHOSPHATASE 84 U/L (45-117)
[2017-05-16 10:07] LABS: INTERNATIONAL NORMALIZED RATIO 1.3 RATIO; PROTHROMBIN TIME - PATIENT 13.2 SEC (9.8-11.6); TROPONIN I LESS THAN 0.02 NG/ML (0.02-0.05)
[2017-05-16 10:19] LABS: LACTIC ACID SEPSIS PROTOCOL 3.1 mmol/L (0.4-2.0)
[2017-05-16] MEDS ORDERED: cefTRIAXone INJ 1,000 MG in SODIUM CHLORIDE 0.9% INJ 100 ML IV ONE (10:30)
[2017-05-16] MEDS ORDERED: AZITHROMYCIN INJ 500 MG in SODIUM CHLOR 0.9% 250 ML INJ 250 ML IV ONE (10:30)
[2017-05-16] MEDS ORDERED: metroNIDAZOLE 500 MG INJ 100 ML IV ONE (10:30)
--- NOTE | 2017-05-16 10:52 | RADRPT ---
EXAM DATE/TIME: 05/16/2017 10:07 [facility] COMPARISON: CHEST SINGLE AP, April 22, 2016, 18:29. CHEST PA & LAT, November 04, 2015, 14:28. INDICATIONS : Short of breath MEDICAL HISTORY : Congestive heart failure. Chronic obstructive pulmonary disease. SURGICAL HISTORY : ENCOUNTER: Initial ACUITY: 3 days PAIN SCORE: 0/10 LOCATION: Bilateral chest FINDINGS: PA and lateral views of the chest show a scoliotic spine. consolidation involving the left upper lobe . This is unchanged from the 2016 exam. There is a new vague opacity within the right upper lobe just lateral to the superior portion of the hilum. A new area consolidation is seen within the left lower lobe. No effusions. The heart is normal in size. CONCLUSION: 1. Infiltrates within the right upper lobe and left lower lobe are new. 2. Unchanged chronic consolidation within the left upper lobe. Blane Cordova Jr., MD on May 16, 2017 at 10:46 Board Certified Radiologist. This report was verified electronically.
[2017-05-16] MEDS ORDERED: MORPHINE SULFATE 4 MG/ML INJ IV PUSH ONE (11:15)
[2017-05-16] MEDS ORDERED: ONDANSETRON HCL 4 MG/2 ML VIAL IV PUSH ONE (11:15)
[2017-05-16] MEDS ORDERED: ONDANSETRON HCL 4 MG/2 ML VIAL IVP PRN (14:30)
[2017-05-16] MEDS ORDERED: ACETAMINOPHEN 325 MG TAB PO PRN (14:30)
[2017-05-16] MEDS ORDERED: NALOXONE HCL 0.4 MG/ML AMP IV PUSH PRN (14:30)
[2017-05-16] MEDS ORDERED: SODIUM CHLORIDE 0.9% FLUSH 10 ML FLUSH IV FLUSH PRN (14:30)
--- NOTE | 2017-05-16 14:38 | HHI.HP ---
[facility] Service [facility] ([place], [place])ists Primary Care Physician Non-Staff Admission Diagnosis Pneumonia, Dehydration, Diarrhea Diagnoses: Chief Complaint: /Diarrhea Travel History International Travel<30 Days: No Contact w/Intl Traveler <30 Da: No Traveled to Known Affected Are: No History of Present Illness This patient is a 67-year-old woman who has had 4 days of explosive diarrhea. He says that he has had abdominal cramping and bloating. There is no melena or hematochezia. He has had decreased oral intake because of nausea. He complains of minimal pain. He has also had increased shortness of breath and increased work of breathing. He has COPD but most recently was diagnosed with aspiration pneumonia by his primary care doctor. He has not been on antibiotics recently. Over a year ago he did have C. difficile colitis. He reports no fevers. Here he has had some diarrhea and loose stools. Stool s samples are pending. Patient at this time has been recommended for further observation due to dehydration. He has dry mucous membranes and is weak. He also has elevated lactic acid. Chest x-ray on my review is concerning for aspiration pneumonia Review of Systems Constitutional: COMPLAINS OF: Weight loss, Change in appetite, DENIES: Diaphoretic episodes, Fatigue, Fever, Weight gain, Chills, Dizziness, Night Sweats Endocrine: DENIES: Heat/cold intolerance, Polydipsia, Polyuria, Polyphagia Eyes: DENIES: Blurred vision, Diplopia, Eye inflammation, Eye pain, Vision loss , Photosensitivity, Double Vision Ears, nose, mouth, throat: DENIES: Tinnitus, Hearing loss, Vertigo, Nasal discharge, Oral lesions, Throat pain, Hoarseness, Ear Pain, Running Nose, Epistaxis, Sinus Pain, Toothache, Odynophagia Respiratory: DENIES: Apneas, Cough, Snoring, Wheezing, Hemoptysis, Sputum production, Shortness of breath Cardiovascular: DENIES: Chest pain, Palpitations, Syncope, Dyspnea on Exertion , PND, Lower Extremity Edema, Orthopnea, Claudication Gastrointestinal: COMPLAINS OF: Abdominal pain, Diarrhea, Nausea, Difficulty Swallowing, DENIES: Black stools, Bloody stools, Constipation, Vomiting, Anorexia Genitourinary: DENIES: Sexual dysfunction, Urinary frequency, Urinary incontinence, Urgency, Hematuria, Dysuria, Nocturia, Penile Discharge, Testicular Pain, Testicular Swelling Musculoskeletal: COMPLAINS OF: Joint pain, Back pain, DENIES: Muscle aches, Stiffness, Joint Swelling, Neck pain Integumentary: DENIES: Abnormal pigmentation, Nail changes, Pruritus, Rash Hematologic/lymphatic: DENIES: Bruising, Lymphadenopathy Immunologic/allergic: DENIES: Eczema, Urticaria Neurologic: DENIES: Abnormal gait, Headache, Localized weakness, Paresthesias, Seizures, Speech Problems, Tremor, Poor Balance Psychiatric: COMPLAINS OF: Anxiety, DENIES: Confusion, Mood changes, Depression , Hallucinations, Agitation, Suicidal Ideation, Homicidal Ideation, Delusions Except as stated in HPI: all other systems reviewed are Neg Past Family Social History Past Medical History Atrial fibrillation, COPD, history of aspiration pneumonia Chronic back pain and neuropathy Arterial insufficiency/peripheral artery disease Past Surgical History Multiple joint surgeries, left eye surgery, tonsillectomy Reported Medications Reviewed in the EMR Allergies: Coded Allergies: codeine (Verified Allergy, Severe, TURN RED, SOB, HIVES, 05/16/17) ketoconazole (Verified Allergy, Intermediate, Rash, 05/16/17) ITCHING Active Ordered Medications Reviewed in the EMR Family History Family history of hypertension Social History No current tobacco or alcohol dependency, lives with his ex- Physical Exam Vital Signs Vital Signs Date Time Temp Pulse Resp B/P (MAP) Pulse Ox O2 Delivery O2 Flow Rate FiO2 05/16/17 14:29 05/16/17 11:31 75 125/73 (90) 100 05/16/17 10:10 81 16 120/69 (86) 100 Room Air 05/16/17 09:55 16 98 Room Air 05/16/17 09:00 97.4 90 19 136/74 (94) 100 Physical Exam GENERAL: This is a well-nourished, well-developed patient, in no apparent distress. SKIN: No rashes, ecchymoses or lesions. Cool and dry. HEAD: Atraumatic. Normocephalic. No temporal or scalp tenderness. EYES: Pupils equal round and reactive. Extraocular motions intact. No scleral icterus. No injection or drainage. ENT: Nose without bleeding, purulent drainage or septal hematoma. Throat without erythema, tonsillar hypertrophy or exudate. Uvula midline. Airway patent. NECK: Trachea midline. No JVD or lymphadenopathy. Supple, nontender, no meningeal signs. CARDIOVASCULAR: Regular rate and rhythm without murmurs, gallops, or rubs. RESPIRATORY: Clear to auscultation. Breath sounds equal bilaterally. No wheezes , rales, or rhonchi. GASTROINTESTINAL: Abdomen soft, non-tender, nondistended. No hepato-splenomegaly , or palpable masses. No guarding. MUSCULOSKELETAL: Extremities without clubbing, cyanosis, or edema. No joint tenderness, effusion, or edema noted. No calf tenderness. Negative Homans sign bilaterally. NEUROLOGICAL: Awake and alert. Cranial nerves II through XII intact. Motor and sensory grossly within normal limits. Five out of 5 muscle strength in all muscle groups. Normal speech. Laboratory Laboratory Tests Test 05/16/17 09:26 05/16/17 09:37 05/16/17 09:52 05/16/17 13:45 White Blood Count 7.3 Red Blood Count 4.80 Hemoglobin 10.7 Hematocrit 35.1 Mean Corpuscular Volume 73.1 Mean Corpuscular Hemoglobin 22.3 Mean Corpuscular Hemoglobin Concent 30.5 Red Cell Distribution Width 19.8 Platelet Count 312 Mean Platelet Volume 8.5 Neutrophils (%) (Auto) 56.5 Lymphocytes (%) (Auto) 32.6 Monocytes (%) (Auto) 7.6 Eosinophils (%) (Auto) 1.5 Basophils (%) (Auto) 1.8 Neutrophils # (Auto) 4.1 Lymphocytes # (Auto) 2.4 Monocytes # (Auto) 0.6 Eosinophils # (Auto) 0.1 Basophils # (Auto) 0.1 CBC Comment AUTO DIFF Differential Comment AUTO DIFF CONFIRMED Platelet Estimate NORMAL Platelet Morphology Comment NORMAL Ovalocytes 1+ Prothrombin Time 13.2 Prothromb Time International Ratio 1.3 Activated Partial Thromboplast Time 28.2 Blood Urea Nitrogen 10 Creatinine 0.74 Random Glucose 81 Total Protein 7.1 Albumin 3.2 Calcium Level 8.3 Magnesium Level 1.7 Alkaline Phosphatase 84 Aspartate Amino Transf (AST/SGOT) 40 Alanine Aminotransferase (ALT/SGPT) 31 Total Bilirubin 0.4 Sodium Level 141 Potassium Level 3.8 Chloride Level 108 Carbon Dioxide Level 25.1 Anion Gap 8 Estimat Glomerular Filtration Rate 106 Total Creatine Kinase 114 Creatine Kinase MB 1.5 Troponin I LESS THAN 0.02 Lipase 114 Lactic Acid Level 3.1 2.4 Date/Time Source Procedure Growth Status 05/16/17 09:52 Blood Peripheral Aerobic Blood Culture Pending Received 05/16/17 09:52 Blood Peripheral Anaerobic Blood Culture Pending Received 05/16/17 09:30 Nasal Washing Influenza Types A,B Antigen (KAYLYN) - Final NEGATIVE FOR FLU A AND B ANTIGEN.... Complete Result Diagram: 05/16/1793605/16/17936 Septic Shock Reassessment Septic shock perfusion: reassessment completed Caprini VTE Risk Assessment Caprini VTE Risk Assessment: Mod/High Risk (score >= 2) Caprini Risk Assessment Model Point Value = 1 Point Value = 2 Point Value = 3 Point Value = 5 Age 41-60 Minor surgery BMI > 25 kg/m2 Swollen legs Varicose veins or History of unexplained or recurrent spontaneous Oral contraceptives or hormone replacement Sepsis (< 1 month) Serious lung disease, including pneumonia (< 1 month) Abnormal pulmonary function Acute myocardial infarction Congestive heart failure (< 1 month) History of inflammatory bowel disease Medical patient at bed rest Age 61-74 Arthroscopic surgery Major open surgery (> 45 min) Laparoscopic surgery (> 45 min) Malignancy Confined to bed (> 72 hours) Immobilizing plaster cast Central venous access Age >= 75 History of VTE Family history of VTE Factor V Leiden Prothrombin [id number] Lupus anticoagulant Anticardiolipin antibodies Elevated serum homocysteine Heparin-induced thrombocytopenia Other congenital or acquired thrombophilia Stroke (< 1 month) Elective arthroplasty Hip, pelvis, or leg fracture Acute spinal cord injury (< 1 month) Prophylaxis Regimen Total Risk Factor Score Risk Level Prophylaxis Regimen 0-1 Low Early ambulation 2 Moderate Order ONE of the following: *Sequential Compression Device (SCD) *Heparin 5000 units SQ BID 3-4 Higher Order ONE of the following medications: *Heparin 5000 units SQ TID *Enoxaparin/Lovenox 40 mg SQ daily (WT < 150 kg, CrCl > 30 mL/min) *Enoxaparin/Lovenox 30 mg SQ daily (WT < 150 kg, CrCl > 10-29 mL/min) *Enoxaparin/Lovenox 30 mg SQ BID (WT < 150 kg, CrCl > 30 mL/min) AND/OR *Sequential Compression Device (SCD) 5 or more Highest Order ONE of the following medications: *Heparin 5000 units SQ TID (Preferred with Epidurals) *Enoxaparin/Lovenox 40 mg SQ daily (WT < 150 kg, CrCl > 30 mL/min) *Enoxaparin/Lovenox 30 mg SQ daily (WT < 150 kg, CrCl > 10-29 mL/min) *Enoxaparin/Lovenox 30 mg SQ BID (WT < 150 kg, CrCl > 30 mL/min) AND *Sequential Compression Device (SCD) Assessment and Plan Problem List: (1) Aspiration pneumonia ICD Code: J69.0 - Pneumonitis due to inhalation of food and vomit Plan: Clindamycin, levaquin We will add lactobacillus speech therapy consult (2) COPD (chronic obstructive pulmonary disease) ICD Code: J44.9 - Chronic obstructive pulmonary disease, unspecified Status: Chronic Plan: Continue with bronchodilators as needed no evidence of acute exacerbation at this time (3) Atrial fibrillation ICD Code: I48.91 - Atrial fibrillation Status: Chronic Plan: Currently rate controlled, continue Eliquis and diltiazem Code Status Full code Tasha Beavers MD May 16, 2017 14:37
[2017-05-16] MEDS ORDERED: LEVOFLOXACIN 500 MG PREMIX INJ 100 ML IV SCH (15:00)
[2017-05-16] MEDS: MORPHINE SULFATE 15 MG TAB PO PRN ×3 (15:09→23:17)
[2017-05-16] MEDS: SODIUM CHLOR 0.9% 1000 ML INJ 1,000 ML IV SCH ×2 (15:10→18:32)
[2017-05-16] MEDS ORDERED: RESP: ALBUTEROL 2.5 MG/IPRATROPIUM 0.5 MG NEB (PRN) NEB (16:00)
[2017-05-16] MEDS: LACTOBACILLUS ACIDOPHILUS 1 GM PACKET PO SCH ×2 (18:00→18:54)
[2017-05-16] MEDS: clonazePAM 1 MG TAB PO SCH ×2 (18:29→18:31)
[2017-05-16] MEDS: CLINDAMYCIN 600 MG/NS PREMIX 50 ML IV SCH ×2 (18:54→23:19)
[2017-05-16] MEDS: SODIUM CHLORIDE 0.9% FLUSH 10 ML FLUSH IV FLUSH SCH (20:10)
[2017-05-16] MEDS: CHOLESTYRAMINE 4 GM PACKET PO SCH (20:18)
[2017-05-16] MEDS: APIXABAN 5 MG TABLET PO SCH (20:18)
[2017-05-17 00:19] VITALS: BP 112/64; PULSE 77; RESP 20; TEMP 96.8; O2SAT 100
[2017-05-17] MEDS: CLINDAMYCIN 600 MG/NS PREMIX 50 ML IV SCH (03:16)
[2017-05-17] MEDS: MORPHINE SULFATE 15 MG TAB PO PRN ×5 (03:17→21:12)
[2017-05-17] MEDS: SODIUM CHLOR 0.9% 1000 ML INJ 1,000 ML IV SCH ×2 (05:13→21:08)
[2017-05-17 07:27] LABS: AUTOMATED NEUTROPHIL # 2.5 TH/MM3 (1.8-7.7); BASOPHIL % 0.6 % (0.0-2.0); EOSINOPHIL # 0.1 TH/MM3 (0-0.4); EOSINOPHIL % 1.7 % (0.0-4.0); HEMATOCRIT 27.7 % (39.0-51.0); LYMPH % 43.4 % (9.0-44.0); LYMPHOCYTE # 2.5 TH/MM3 (1.0-4.8); MEAN CELL VOLUME 73.2 FL (80.0-100.0); MEAN CORPUSCULAR HEMOGLOBIN 23.8 PG (27.0-34.0); MEAN CORPUSCULAR HGB CONC 32.4 % (32.0-36.0); MEAN PLATELET VOLUME 8.2 FL (7.0-11.0); MONO % 10.6 % (0.0-8.0); MONOCYTE # 0.6 TH/MM3 (0-0.9); NEUT % 43.7 % (16.0-70.0); PLATELET COUNT 321 TH/MM3 (150-450); RED BLOOD COUNT 3.78 MIL/MM3 (4.50-5.90); RED CELL DISTRIBUTION WIDTH 20.1 % (11.6-17.2); WHITE BLOOD COUNT 5.7 TH/MM3 (4.0-11.0)
[2017-05-17 07:30] LABS: BICARBONATE 24.1 MEQ/L (21.0-32.0); CALCIUM 7.2 MG/DL (8.5-10.1); CREATININE 0.65 MG/DL (0.60-1.30)
[2017-05-17 07:50] VITALS: BP 122/77; PULSE 102; RESP 20; TEMP 96.9; O2SAT 99
[2017-05-17 08:24] LABS: CALCIUM-PROTEIN CORRECTED 8.1 MG/DL (8.5-10.1); TOTAL PROTEIN 5.5 GM/DL (6.4-8.2)
[2017-05-17] MEDS: LACTOBACILLUS ACIDOPHILUS 1 GM PACKET PO SCH ×4 (09:00→21:26)
[2017-05-17] MEDS ORDERED: PROBIOTIC PRODUCT PO SCH (09:00)
[2017-05-17] MEDS: VANCOMYCIN 25 MG/ML SOLN 100 ML BOTTLE PO SCH ×4 (09:00→21:10)
--- NOTE | 2017-05-17 09:23 | HHI.PR ---
Subjective Remarks Patient seen and examined today for follow-up on pneumonia, diarrhea illness. Studies did come back the patient does have recurrent clostridium difficile infection. Patient states that he is still have been watery diarrhea. Difficult time sleeping last night due to back pain. Vital signs are stable, patient remains afebrile Objective Vitals Vital Signs Date Time Temp Pulse Resp B/P (MAP) Pulse Ox O2 Delivery O2 Flow Rate FiO2 05/17/17 09:00 18 05/17/17 00:19 96.8 77 20 112/64 (80) 100 05/16/17 20:46 97.8 98 20 124/71 (88) 95 05/16/17 18:45 97.8 96 16 137/80 (99) 100 05/16/17 14:45 97.8 80 18 118/68 (85) 100 05/16/17 14:29 05/16/17 11:31 75 125/73 (90) 100 05/16/17 10:10 81 16 120/69 (86) 100 Room Air 05/16/17 09:55 16 98 Room Air I/O 05/16/17 05/16/17 05/16/17 05/17/17 05/17/17 05/17/17 07:00 15:00 23:00 07:00 15:00 23:00 Intake Total 2350 ml 50 ml 1162 ml Balance 2350 ml 50 ml 1162 ml Intake IV Total 2350 ml 50 ml 1162 ml # Voids 1 # Bowel Movements 5 Result Diagram: 05/17/17 0627 05/17/17 0627 Objective Remarks GENERAL: Well-developed, well-nourished, in no acute distress. alert and orientated HEENT: Head is normocephalic without any lesions or masses noted. Facial features are symmetric. Eyes: Extraocular muscles are intact. Conjunctivae were clear. NECK: Supple without any masses. Trachea midline no deviation. No JVD, CARDIAC: Regular rhythm, regular rate. S1/S2 are heard. No murmurs gallops or rubs. LUNGS: Clear to auscultation bilaterally. No wheeze, rhonchi or rales. No use of accessory muscles on inspiration or expiration. ABDOMEN: Soft, nontender. Nondistended. Bowel sounds heard in all 4 quadrants. No organomegaly or masses. Negative rebound, negative guarding EXTREMITIES: No edema, pulses are equal bilaterally. No cyanosis or clubbing NEUROLOGY: Mood and affect appear appropriate. Cranial nerves II through XII grossly intact. Moving all extremities, speech is clear Urinary Catheter: No Vascular Central Line Catheter: No A/P Assessment and Plan Clostridium difficile infection, recurrent Patient with previous infection in 2016 Start vancomycin 125 mg by mouth 4 times a day Patient will be receiving Flagyl IV for aspiration pneumonia Continue cholestyramine Continue probiotic Continue monitor stool output, 5 bowel movements overnight Continue IV fluids until bowel movements improve Bilateral pneumonia, right upper lobe and left lower lobe. With history of aspiration pneumonia Patient was on Levaquin, clindamycin. These were discontinued due to C. difficile infection Start cefepime, Flagyl IV Check sputum culture Duo nebs every 6 hours as needed start Mucinex Lactic acidosis, resolved Likely secondary to dehydration and infection Chronic atrial fibrillation Cardizem has been continued Patient anticoagulated with Eliquis Chronic obstructive pulmonary disease Patient with good O2 saturations without any supplementation Duo nebs as needed Chronic back pain with neuropathy Home medication was continued MSIR 15 mg every 4 hours DVT prevention patient anticoagulated with Eliquis Discharge Planning Discharge planning in 24-48 hours, depending on patient's response to treatment Edgardo Fairchild May 17, 2017 09:23
[2017-05-17] MEDS ORDERED: RESP: ALBUTEROL 2.5 MG/IPRATROPIUM 0.5 MG NEB (PRN) NEB (09:30)
[2017-05-17] MEDS: TIOTROPIUM BROMIDE 18 MCG INH INH SCH (10:24)
[2017-05-17] MEDS: DILTIAZEM-CD 300 MG CAP ER PO SCH (10:25)
[2017-05-17] MEDS: metroNIDAZOLE 500 MG INJ 100 ML IV SCH ×2 (10:25→16:37)
[2017-05-17] MEDS: CEFEPIME INJ 2,000 MG in SODIUM CHLORIDE 0.9% INJ 100 ML IV SCH ×2 (10:25→21:09)
[2017-05-17] MEDS: APIXABAN 5 MG TABLET PO SCH ×2 (10:26→21:09)
[2017-05-17] MEDS: SODIUM CHLORIDE 0.9% FLUSH 10 ML FLUSH IV FLUSH SCH ×2 (10:26→21:10)
[2017-05-17] MEDS: CHOLESTYRAMINE 4 GM PACKET PO SCH ×2 (10:26→21:10)
[2017-05-17] MEDS: guaiFENesin E.R. 600 MG TAB PO SCH ×2 (10:27→21:06)
[2017-05-17 11:50] VITALS: BP_SYST 121; BP_SYST 130; BP_DIAS 82; BP_DIAS 88; PULSE 82; PULSE 97; RESP 20; TEMP 97.5; TEMP 97.6; O2SAT 100; O2SAT 99
[2017-05-17] MEDS: clonazePAM 1 MG TAB PO SCH ×2 (11:52→16:37)
[2017-05-17 20:23] VITALS: BP 128/84; PULSE 79; RESP 18; TEMP 98.1; O2SAT 98
[2017-05-18] MEDS ORDERED: clonazePAM 1 MG TAB PO ONE
[2017-05-18 00:06] VITALS: BP 117/68; PULSE 84; RESP 16; TEMP 97.9; O2SAT 99
[2017-05-18] MEDS: MORPHINE SULFATE 15 MG TAB PO PRN ×6 (01:24→20:57)
[2017-05-18] MEDS: metroNIDAZOLE 500 MG INJ 100 ML IV SCH ×3 (01:25→16:36)
[2017-05-18] MEDS: SODIUM CHLOR 0.9% 1000 ML INJ 1,000 ML IV SCH ×2 (05:32→16:23)
[2017-05-18 06:40] LABS: AUTOMATED NEUTROPHIL # 2.3 TH/MM3 (1.8-7.7); BASOPHIL % 0.5 % (0.0-2.0); EOSINOPHIL # 0.2 TH/MM3 (0-0.4); EOSINOPHIL % 2.9 % (0.0-4.0); HEMATOCRIT 28.1 % (39.0-51.0); HEMOGLOBIN 8.7 GM/DL (13.0-17.0); LYMPH % 40.5 % (9.0-44.0); LYMPHOCYTE # 2.1 TH/MM3 (1.0-4.8); MEAN CELL VOLUME 73.6 FL (80.0-100.0); MEAN CORPUSCULAR HEMOGLOBIN 22.7 PG (27.0-34.0); MEAN CORPUSCULAR HGB CONC 30.9 % (32.0-36.0); MEAN PLATELET VOLUME 8.2 FL (7.0-11.0); MONO % 12.1 % (0.0-8.0); MONOCYTE # 0.6 TH/MM3 (0-0.9); PLATELET COUNT 330 TH/MM3 (150-450); RED BLOOD COUNT 3.82 MIL/MM3 (4.50-5.90); RED CELL DISTRIBUTION WIDTH 19.1 % (11.6-17.2); WHITE BLOOD COUNT 5.2 TH/MM3 (4.0-11.0)
[2017-05-18 06:59] LABS: BICARBONATE 24.3 MEQ/L (21.0-32.0); CALCIUM 7.2 MG/DL (8.5-10.1); CREATININE 0.57 MG/DL (0.60-1.30); MAGNESIUM 1.3 MG/DL (1.5-2.5)
[2017-05-18 07:26] LABS: CALCIUM-PROTEIN CORRECTED 8.1 MG/DL (8.5-10.1); TOTAL PROTEIN 5.5 GM/DL (6.4-8.2)
[2017-05-18 07:56] LABS: OVALOCYTES 1+ (NORMAL)
[2017-05-18 08:00] VITALS: BP 131/89; PULSE 75; RESP 18; TEMP 96.9; O2SAT 99
[2017-05-18] MEDS: VANCOMYCIN 25 MG/ML SOLN 100 ML BOTTLE PO SCH ×4 (08:47→20:59)
[2017-05-18] MEDS: DILTIAZEM-CD 300 MG CAP ER PO SCH (08:48)
[2017-05-18] MEDS: clonazePAM 1 MG TAB PO SCH ×3 (08:49→16:37)
[2017-05-18] MEDS: APIXABAN 5 MG TABLET PO SCH ×2 (08:49→21:04)
[2017-05-18] MEDS: CHOLESTYRAMINE 4 GM PACKET PO SCH ×2 (08:49→20:57)
[2017-05-18] MEDS: LACTOBACILLUS ACIDOPHILUS 1 GM PACKET PO SCH ×4 (08:49→21:04)
[2017-05-18] MEDS: CEFEPIME INJ 2,000 MG in SODIUM CHLORIDE 0.9% INJ 100 ML IV SCH ×2 (08:50→20:57)
[2017-05-18] MEDS: guaiFENesin E.R. 600 MG TAB PO SCH ×3 (08:50→21:00)
[2017-05-18] MEDS: TIOTROPIUM BROMIDE 18 MCG INH INH SCH (08:51)
[2017-05-18] MEDS: SODIUM CHLORIDE 0.9% FLUSH 10 ML FLUSH IV FLUSH SCH ×2 (09:00→20:58)
--- NOTE | 2017-05-18 10:18 | HHI.PR ---
Subjective Remarks Patient seen and examined today for follow-up on aspiration pneumonia, Clostridium difficile infection. Patient states that he is still having significant amount of bowel movements. Patient states that his home pain medication is not working while he is here in the hospital. Patient indicates that his lungs feel tighter than usual. Usually whenever he uses Spiriva does improve throughout the day. However it is not while he is here. Discussed with him starting scheduled for laser treatments. Objective Vitals Vital Signs Date Time Temp Pulse Resp B/P (MAP) Pulse Ox O2 Delivery O2 Flow Rate FiO2 05/18/17 09:50 20 05/18/17 08:00 96.9 75 18 131/89 (103) 99 05/18/17 04:29 05/18/17 00:06 97.9 84 16 117/68 (84) 99 05/17/17 20:23 98.1 79 18 128/84 (99) 98 05/17/17 11:50 97.5 97 20 130/88 (102) 100 05/17/17 11:50 97.6 82 20 121/82 (95) 99 I/O 05/17/17 05/17/17 05/17/17 05/18/17 05/18/17 05/18/17 06:59 14:59 22:59 06:59 14:59 22:59 Intake Total 1162 ml 2136 ml 706 ml 240 ml Output Total 300 ml 2200 ml Balance 1162 ml 1836 ml -1494 ml 240 ml Intake Oral 960 ml 240 ml IV Total 1162 ml 1176 ml 706 ml Output Urine Total 700 ml Stool Total 300 ml 1500 ml # Voids 1 6 2 # Bowel Movements 5 6 Result Diagram: 05/18/17 0535 05/18/17 0535 Objective Remarks GENERAL: Well-developed, well-nourished, in no acute distress. alert and orientated HEENT: Head is normocephalic without any lesions or masses noted. Facial features are symmetric. Eyes: Extraocular muscles are intact. Conjunctivae were clear. NECK: Supple without any masses. Trachea midline no deviation. No JVD, CARDIAC: Regular rhythm, regular rate. S1/S2 are heard. No murmurs gallops or rubs. LUNGS: Clear to auscultation bilaterally. No wheeze, rhonchi or rales. No use of accessory muscles on inspiration or expiration. ABDOMEN: Soft, nontender. Nondistended. Bowel sounds heard in all 4 quadrants. No organomegaly or masses. Negative rebound, negative guarding EXTREMITIES: No edema, pulses are equal bilaterally. No cyanosis or clubbing NEUROLOGY: Mood and affect appear appropriate. Cranial nerves II through XII grossly intact. Moving all extremities, speech is clear Urinary Catheter: No Vascular Central Line Catheter: No A/P Assessment and Plan Clostridium difficile infection, recurrent Patient with previous infection in 2016 Start vancomycin 125 mg by mouth 4 times a day Patient will be receiving Flagyl IV for aspiration pneumonia Continue cholestyramine Continue probiotic Continue monitor stool output, 6 bowel movements in the last 24 hours Continue IV fluids until bowel movements improve Bilateral pneumonia, right upper lobe and left lower lobe. With history of aspiration pneumonia Patient was on Levaquin, clindamycin. These were discontinued due to C. difficile infection Continue cefepime, Flagyl IV Await sputum culture Ipratropium bromide per nebulizer every 6 hours while awake Continue Mucinex Lactic acidosis, resolved Likely secondary to dehydration and infection Chronic atrial fibrillation Cardizem has been continued Patient anticoagulated with Eliquis Chronic obstructive pulmonary disease Patient with good O2 saturations without any supplementation Duo nebs as needed Chronic back pain with neuropathy Home medication was continued MSIR 15 mg every 4 hours DVT prevention patient anticoagulated with Eliquis Discharge Planning Discharge planning when clinically improved Edgardo Fairchild May 18, 2017 10:17
[2017-05-18] MEDS ORDERED: MAGNESIUM OXIDE 400 MG TAB PO ONE (11:00)
[2017-05-18 12:00] VITALS: BP 133/78; PULSE 94; RESP 18; TEMP 97.9; O2SAT 100
[2017-05-18] MEDS: RESP: IPRATROPIUM 0.5 MG/2.5 ML NEB NEB SCH ×2 (13:25→20:00)
[2017-05-18 16:00] VITALS: BP 119/79; PULSE 71; RESP 18; TEMP 97.2; O2SAT 98
[2017-05-18 20:00] VITALS: BP 106/62; PULSE 75; RESP 20; TEMP 96.6; O2SAT 97
[2017-05-19] VITALS: BP 131/83; PULSE 80; RESP 20; TEMP 96.1; O2SAT 100
[2017-05-19] MEDS: metroNIDAZOLE 500 MG INJ 100 ML IV SCH ×3 (01:54→18:00)
[2017-05-19] MEDS: MORPHINE SULFATE 15 MG TAB PO PRN ×6 (01:54→22:07)
[2017-05-19] MEDS: SODIUM CHLOR 0.9% 1000 ML INJ 1,000 ML IV SCH ×3 (05:58→21:10)
[2017-05-19 08:00] VITALS: BP 136/86; PULSE 98; RESP 16; TEMP 97.3; O2SAT 98
[2017-05-19] MEDS: RESP: IPRATROPIUM 0.5 MG/2.5 ML NEB NEB SCH ×3 (08:06→20:00)
[2017-05-19 08:09] VITALS: O2SAT 98
[2017-05-19] MEDS: LACTOBACILLUS ACIDOPHILUS 1 GM PACKET PO SCH ×4 (09:00→21:07)
[2017-05-19 09:23] LABS: AUTOMATED NEUTROPHIL # 2.8 TH/MM3 (1.8-7.7); BASOPHIL % 0.6 % (0.0-2.0); EOSINOPHIL # 0.2 TH/MM3 (0-0.4); EOSINOPHIL % 3.6 % (0.0-4.0); HEMOGLOBIN 9.9 GM/DL (13.0-17.0); LYMPH % 42.7 % (9.0-44.0); MEAN CELL VOLUME 72.4 FL (80.0-100.0); MEAN CORPUSCULAR HEMOGLOBIN 23.8 PG (27.0-34.0); MEAN CORPUSCULAR HGB CONC 32.9 % (32.0-36.0); MEAN PLATELET VOLUME 7.7 FL (7.0-11.0); MONO % 11.8 % (0.0-8.0); MONOCYTE # 0.8 TH/MM3 (0-0.9); NEUT % 41.3 % (16.0-70.0); PLATELET COUNT 335 TH/MM3 (150-450); RED BLOOD COUNT 4.14 MIL/MM3 (4.50-5.90); RED CELL DISTRIBUTION WIDTH 19.5 % (11.6-17.2); WHITE BLOOD COUNT 6.8 TH/MM3 (4.0-11.0)
[2017-05-19] MEDS: VANCOMYCIN 25 MG/ML SOLN 100 ML BOTTLE PO SCH ×4 (09:26→21:15)
[2017-05-19] MEDS: CHOLESTYRAMINE 4 GM PACKET PO SCH ×2 (09:28→21:08)
[2017-05-19] MEDS: guaiFENesin E.R. 600 MG TAB PO SCH ×3 (09:28→21:06)
[2017-05-19] MEDS: SODIUM CHLORIDE 0.9% FLUSH 10 ML FLUSH IV FLUSH SCH ×2 (09:29→21:00)
[2017-05-19] MEDS: APIXABAN 5 MG TABLET PO SCH ×2 (09:29→21:07)
[2017-05-19] MEDS: DILTIAZEM-CD 300 MG CAP ER PO SCH (09:29)
[2017-05-19] MEDS: clonazePAM 1 MG TAB PO SCH ×3 (09:29→18:00)
[2017-05-19] MEDS: TIOTROPIUM BROMIDE 18 MCG INH INH SCH (09:30)
--- NOTE | 2017-05-19 09:45 | HHI.PR ---
Subjective Remarks Follow-up aspiration pneumonia and C. difficile infection. Patient states that he is having continued loose stool, states that he thinks it is "thickening some ". He does state that "everything he eats comes out of him". Denies any nausea or vomiting. Objective Vitals Vital Signs Date Time Temp Pulse Resp B/P (MAP) Pulse Ox O2 Delivery O2 Flow Rate FiO2 05/19/17 08:09 98 21 05/19/17 08:00 97.3 98 16 136/86 (103) 98 05/19/17 07:35 20 05/19/17 00:00 96.1 80 20 131/83 (99) 100 05/18/17 20:00 96.6 75 20 106/62 (77) 97 05/18/17 16:00 97.2 71 18 119/79 (92) 98 05/18/17 12:00 97.9 94 18 133/78 (96) 100 I/O 05/18/17 05/18/17 05/18/17 05/19/17 05/19/17 05/19/17 07:00 15:00 23:00 07:00 15:00 23:00 Intake Total 706 ml 440 ml 820 ml Output Total 2200 ml Balance -1494 ml 440 ml 820 ml Intake Oral 240 ml 720 ml IV Total 706 ml 200 ml 100 ml Output Urine Total 700 ml Stool Total 1500 ml # Voids 2 2 6 # Bowel Movements 2 1 Result Diagram: 05/19/17 0900 05/18/17 0535 Imaging Last Impressions Chest X-Ray 05/16/17 0916 Signed Impressions: Service Date/Time: Tuesday, May 16, 2017 10:07 - CONCLUSION: 1. Infiltrates within the right upper lobe and left lower lobe are new. 2. Unchanged chronic consolidation within the left upper lobe. Blane Cordova Jr., MD Objective Remarks GENERAL: Well-developed, well-nourished male patient in NAD. On room air. SKIN: Warm and dry. No rash. HEAD: Normocephalic. Atraumatic. EYES: Pupils equal and round. No scleral icterus. No injection or drainage. ENT: No nasal bleeding or discharge. Mucous membranes pink and moist. NECK: Supple. Trachea midline. CARDIOVASCULAR: Regular rate and rhythm. S1, S2 noted. No murmur appreciated. RESPIRATORY: No accessory muscle use. Clear to auscultation. Breath sounds equal bilaterally. GASTROINTESTINAL: Abdomen soft, non-tender, nondistended. Normoactive bowel sounds x4. MUSCULOSKELETAL: No obvious deformities. Extremities without clubbing, cyanosis , or edema. NEUROLOGICAL: Awake and alert. No obvious cranial nerve deficits. Motor grossly within normal limits. 5/5 muscle strength in bilateral upper and lower extremities. Normal speech. A/P Problem List: (1) Aspiration pneumonia ICD Code: J69.0 - Pneumonitis due to inhalation of food and vomit (2) COPD (chronic obstructive pulmonary disease) ICD Code: J44.9 - Chronic obstructive pulmonary disease, unspecified Status: Chronic (3) Atrial fibrillation ICD Code: I48.91 - Atrial fibrillation Status: Chronic Assessment and Plan Clostridium difficile infection, recurrent Patient with previous infection in 2016 Continue vancomycin 125 mg by mouth 4 times a day Continue Flagyl IV for aspiration pneumonia Continue cholestyramine Continue probiotic Continue monitor stool output, 3 bowel movements in the last 24 hours Continue IV fluids until bowel movements improve Bilateral pneumonia, right upper lobe and left lower lobe. With history of aspiration pneumonia Patient was on Levaquin, clindamycin. These were discontinued due to C. difficile infection Continue cefepime, Flagyl IV Sputum culture negative. Ipratropium bromide per nebulizer every 6 hours while awake Continue Mucinex Lactic acidosis, resolved Likely secondary to dehydration and infection Chronic atrial fibrillation Cardizem has been continued Patient anticoagulated with Eliquis Has been controlled since hospitalization. Chronic obstructive pulmonary disease Patient with good O2 saturations without any supplementation Duo nebs as needed. Continue home Spiriva. Chronic back pain with neuropathy Home medication was continued MSIR 15 mg every 4 hours DVT prevention patient anticoagulated with Eliquis Discharge Planning Possible discharge tomorrow if diarrhea improving. Sigrid Santos May 19, 2017 09:45
[2017-05-19 10:01] LABS: CALCIUM 7.5 MG/DL (8.5-10.1)
[2017-05-19 10:02] LABS: BICARBONATE 26.2 MEQ/L (21.0-32.0); MAGNESIUM 1.4 MG/DL (1.5-2.5)
[2017-05-19 10:05] LABS: CREATININE 0.7 MG/DL (0.60-1.30)
[2017-05-19 10:06] LABS: OVALOCYTES 1+ (NORMAL)
[2017-05-19] MEDS: CEFEPIME INJ 2,000 MG in SODIUM CHLORIDE 0.9% INJ 100 ML IV SCH ×2 (10:29→21:09)
[2017-05-19 12:00] VITALS: BP 123/76; PULSE 93; RESP 18; TEMP 98.2; O2SAT 97
[2017-05-19] MEDS ORDERED: KETOROLAC TROMETHAMINE 30 MG/ML (IVP) VIAL IV PUSH ONE (14:15)
[2017-05-19] MEDS: MAGNESIUM SULFATE 1 GM PREMIX 100 ML IV SCH ×2 (14:24→15:41)
[2017-05-19] MEDS ORDERED: POTASSIUM CHLORIDE 20 MEQ CONTROLLED RELEASE TAB PO ONE (15:00)
[2017-05-19 16:00] VITALS: BP 113/80; PULSE 69; RESP 18; TEMP 97.5; O2SAT 97
[2017-05-19 20:00] VITALS: BP 122/73; PULSE 71; RESP 20; TEMP 96.8; O2SAT 99
[2017-05-19] MEDS ORDERED: SIMETHICONE 125 MG CHEWABLE TAB PO ONE (20:45)
[2017-05-20] VITALS: BP 125/86; PULSE 83; RESP 20; TEMP 97.1; O2SAT 97
[2017-05-20] MEDS: MORPHINE SULFATE 15 MG TAB PO PRN ×4 (02:14→14:03)
[2017-05-20] MEDS: metroNIDAZOLE 500 MG INJ 100 ML IV SCH ×2 (02:14→08:56)
[2017-05-20 07:12] LABS: BICARBONATE 25.8 MEQ/L (21.0-32.0); MAGNESIUM 1.8 MG/DL (1.5-2.5)
[2017-05-20 07:19] LABS: CALCIUM 7.4 MG/DL (8.5-10.1); CREATININE 0.63 MG/DL (0.60-1.30)
[2017-05-20 07:33] LABS: CALCIUM-PROTEIN CORRECTED 7.9 MG/DL (8.5-10.1); TOTAL PROTEIN 6.1 GM/DL (6.4-8.2)
[2017-05-20 08:00] VITALS: BP 142/91; PULSE 103; RESP 20; TEMP 96.9; O2SAT 100
[2017-05-20] MEDS: RESP: IPRATROPIUM 0.5 MG/2.5 ML NEB NEB SCH ×2 (08:00→14:00)
[2017-05-20] MEDS: SODIUM CHLOR 0.9% 1000 ML INJ 1,000 ML IV SCH (08:55)
[2017-05-20] MEDS: TIOTROPIUM BROMIDE 18 MCG INH INH SCH (08:55)
[2017-05-20] MEDS: CEFEPIME INJ 2,000 MG in SODIUM CHLORIDE 0.9% INJ 100 ML IV SCH (08:56)
[2017-05-20] MEDS: DILTIAZEM-CD 300 MG CAP ER PO SCH (08:56)
[2017-05-20] MEDS: CHOLESTYRAMINE 4 GM PACKET PO SCH (08:56)
[2017-05-20] MEDS: guaiFENesin E.R. 600 MG TAB PO SCH (08:57)
[2017-05-20] MEDS: LACTOBACILLUS ACIDOPHILUS 1 GM PACKET PO SCH ×2 (08:57→13:00)
[2017-05-20] MEDS: APIXABAN 5 MG TABLET PO SCH (08:57)
[2017-05-20] MEDS: VANCOMYCIN 25 MG/ML SOLN 100 ML BOTTLE PO SCH ×2 (08:57→14:02)
[2017-05-20] MEDS: clonazePAM 1 MG TAB PO SCH ×2 (08:58→14:03)
[2017-05-20] MEDS: SODIUM CHLORIDE 0.9% FLUSH 10 ML FLUSH IV FLUSH SCH (08:58)
[2017-05-20] MEDS ORDERED: CALCIUM GLUCONATE INJ 1 GM in SODIUM CHLORIDE 0.9% INJ 100 ML IV ONE (09:00)
[2017-05-20 12:00] VITALS: BP 124/70; PULSE 106; RESP 20; TEMP 96.6; O2SAT 95
[2017-05-20 12:12] VITALS: RESP 18
[2017-05-20] MEDS ORDERED: VANC125C3 PO (12:19)
[2017-05-20] MEDS ORDERED: guaiFENesin ER PO (12:19)
[2017-05-20] MEDS ORDERED: CHOL4POW4 PO (12:19)
[2017-05-20] MEDS ORDERED: LACTG PO (12:19)
[2017-05-20] MEDS ORDERED: AMOX875T2 PO (12:19)
--- NOTE | 2017-05-20 12:25 | HHI.DS ---
Discharge Summary Admission Date May 16, 2017 at 13:20 Discharge Date: May 20, 2017 Admitting Diagnosis Pneumonia, Dehydration, Diarrhea (1) Aspiration pneumonia ICD Code: J69.0 - Pneumonitis due to inhalation of food and vomit (2) COPD (chronic obstructive pulmonary disease) ICD Code: J44.9 - Chronic obstructive pulmonary disease, unspecified Status: Chronic (3) Atrial fibrillation ICD Code: I48.91 - Atrial fibrillation Status: Chronic Procedures See below Brief History - From Admission This patient is a 67-year-old woman who has had 4 days of explosive diarrhea. He says that he has had abdominal cramping and bloating. There is no melena or hematochezia. He has had decreased oral intake because of nausea. He complains of minimal pain. He has also had increased shortness of breath and increased work of breathing. He has COPD but most recently was diagnosed with aspiration pneumonia by his primary care doctor. He has not been on antibiotics recently. Over a year ago he did have C. difficile colitis. He reports no fevers. Here he has had some diarrhea and loose stools. Stool s samples are pending. Patient at this time has been recommended for further observation due to dehydration. He has dry mucous membranes and is weak. He also has elevated lactic acid. Chest x-ray on my review is concerning for aspiration pneumonia CBC/BMP: 05/19/17 0900 05/20/17 0639 Significant Findings Laboratory Tests Test 05/18/17 05:35 05/19/17 09:00 05/20/17 06:39 Red Blood Count 3.82 MIL/MM3 (4.50-5.90) 4.14 MIL/MM3 (4.50-5.90) Hemoglobin 8.7 GM/DL (13.0-17.0) 9.9 GM/DL (13.0-17.0) Hematocrit 28.1 % (39.0-51.0) 30.0 % (39.0-51.0) Mean Corpuscular Volume 73.6 FL (80.0-100.0) 72.4 FL (80.0-100.0) Mean Corpuscular Hemoglobin 22.7 PG (27.0-34.0) 23.8 PG (27.0-34.0) Mean Corpuscular Hemoglobin Concent 30.9 % (32.0-36.0) Red Cell Distribution Width 19.1 % (11.6-17.2) 19.5 % (11.6-17.2) Monocytes (%) (Auto) 12.1 % (0.0-8.0) 11.8 % (0.0-8.0) Ovalocytes 1+ (NORMAL) 1+ (NORMAL) Blood Urea Nitrogen 6 MG/DL (7-18) 4 MG/DL (7-18) 6 MG/DL (7-18) Creatinine 0.57 MG/DL (0.60-1.30) Total Protein 5.5 GM/DL (6.4-8.2) 6.1 GM/DL (6.4-8.2) Calcium Level 7.2 MG/DL (8.5-10.1) 7.5 MG/DL (8.5-10.1) 7.4 MG/DL (8.5-10.1) Magnesium Level 1.3 MG/DL (1.5-2.5) 1.4 MG/DL (1.5-2.5) Chloride Level 111 MEQ/L (98-107) 110 MEQ/L (98-107) 110 MEQ/L (98-107) Protein Corrected Calcium 8.1 MG/DL (8.5-10.1) 7.9 MG/DL (8.5-10.1) Imaging Last Impressions Chest X-Ray 05/16/17 0916 Signed Impressions: Service Date/Time: Tuesday, May 16, 2017 10:07 - CONCLUSION: 1. Infiltrates within the right upper lobe and left lower lobe are new. 2. Unchanged chronic consolidation within the left upper lobe. Blane Cordova Jr., MD PE at Discharge GENERAL: Well-developed, well-nourished male patient in NAD. On room air. SKIN: Warm and dry. No rash. HEAD: Normocephalic. Atraumatic. EYES: Pupils equal and round. No scleral icterus. No injection or drainage. ENT: No nasal bleeding or discharge. Mucous membranes pink and moist. NECK: Supple. Trachea midline. CARDIOVASCULAR: Regular rate and rhythm. S1, S2 noted. No murmur appreciated. RESPIRATORY: No accessory muscle use. Clear to auscultation. Breath sounds equal bilaterally. GASTROINTESTINAL: Abdomen soft, non-tender, nondistended. Normoactive bowel sounds x4. MUSCULOSKELETAL: No obvious deformities. Extremities without clubbing, cyanosis , or edema. NEUROLOGICAL: Awake and alert. No obvious cranial nerve deficits. Motor grossly within normal limits. 5/5 muscle strength in bilateral upper and lower extremities. Normal speech. Pt update on day of discharge C. DIFFICILE and pneumonia. Patient seen and examined, lying in bed comfortably. Denies any dyspnea. Does state that diarrhea is improving, still complains of 3 bouts of diarrhea overnight. Patient tolerating p.o. intake with no problem, denies any nausea or vomiting. Vital signs are stable. Hospital Course This patient is a 67-year-old woman who has had 4 days of explosive diarrhea. He says that he has had abdominal cramping and bloating. There is no melena or hematochezia. He has had decreased oral intake because of nausea. He complains of minimal pain. He has also had increased shortness of breath and increased work of breathing. Clostridium difficile infection positive. Patient with previous infection in 2016. Started on vancomycin 125 mg by mouth 4 times a day. Patient will be receiving Flagyl IV for aspiration pneumonia. Started on cholestyramine and probiotic. Was given IVF. Patient also presented with bilateral pneumonia, right upper lobe and left lower lobe. With history of aspiration pneumonia. Patient was on Levaquin, clindamycin. These were discontinued due to C. difficile infection. Started on cefepime, and Flagyl IV. Sputum culture with normal growth. Ipratropium bromide per nebulizer every 6 hours while awake. Continued Mucinex Chronic atrial fibrillation managed with home Cardizem and Eliquis. Chronic obstructive pulmonary disease not in exacerbation, with good O2 sats throughout hospital stay. Duo nebs as needed. Chronic back pain with neuropathy treated with home medication was continued MSIR 15 mg every 4 hours Patient's diarrhea has improved to 3 bouts per day upon discharge. On RA comfortably. Will DC home with antibiotics and to follow up with PCP. Pt Condition on Discharge: Stable Discharge Disposition: Discharge Home Discharge Time: > 30 minutes Discharge Instructions DIET: Follow Instructions for: As Tolerated, No Restrictions Speech Therapy-Diet Recommends: Mechanical Soft Additional Diet Instructions: Patient refused speech therapy consult 2 days in a row. Recommendations for mechanical soft diet. Risk of aspiration. Recommend follow-up outpatient. Activities you can perform: Regular-No Restrictions Follow up Referrals: PCP Follow-up - 1 Week New Medications: Amoxicillin-Clavulanate (Amoxicillin-Clavulanate) 875-125 mg Tab 875 MG PO BID for Infection for 5 Days, #10 TAB 0 Refills not for use in CrCl <30 mL/minute Vancomycin (Vancomycin) 125 Mg Cap 125 MG PO QID for Infection for 10 Days, #40 CAP 0 Refills Cholestyramine (Cholestyramine) 4 Gm/Pkt Powd 4 GM PO Q12HR for GI for 10 Days, #20 PACK 1 packet contains 4 grams of cholestyramine. Lactobacillus Acidophilus (Floranex) 1 Gm Pkt 1 GM PO QID for GI probiotic for 10 Days, #40 PACK [guaiFENesin ER] () 600 MG TABCR 600 MG PO BID for congestion for 10 Days, #20 TAB Continued Medications: Apixaban (Eliquis) 5 Mg Tab 5 MG PO BID for Blood Clot Prevention, #60 TAB 12 Refills Ascorbic Acid (Vitamin C) 1,000 Mg Tablet.er 1000 MG PO DAILY for Nutritional Supplement Clonazepam (Klonopin) 1 Mg Tab 1 MG PO TID for Anxiety, #90 TAB 0 Refills Cyanocobalamin (B12) 1,000 Mcg Tab Diltiazem CD 24 HR (Diltiazem CD 24 HR) 300 Mg Caper 300 MG PO DAILY, #30 CAP 6 Refills Morphine IR (Morphine IR) 15 Mg Tab 15 MG PO Q4HR PRN for PAIN, TAB 0 Refills Multiple Vitamin (Multiple Vitamin) 1 Tab 1 TAB PO DAILY for Nutritional Supplement, TAB 0 Refills Tiotropium Inh (Spiriva Handihaler) 18 Mcg Cap 2 PUFF INH DAILY for COPD, #30 CAP 0 Refills 1 capsule = 18 mcg Discontinued Medications: Probiotic Product (Probiotic Daily) Unknown Strength Cap 1 CAP PO DAILY for Nutritional Supplement Sigrid Santos May 20, 2017 12:25
== END 2017-05-20 14:14 | disposition home or self-care (01) ==
LOC: PHED 08:55 → PHEDA 13:20 → PH3B 14:29
PROVIDERS: ADMIT Hospitalist; ATTEND Hospitalist
DX: J69.0 Pneumonitis due to inhalation of food and vomit (principal); A04.71 Enterocolitis due to Clostridium difficile, recurrent; E86.0 Dehydration; R19.7 Diarrhea, unspecified; R11.0 Nausea; E87.2 Acidosis; J44.9 Chronic obstructive pulmonary disease, unspecified; I48.2 Chronic atrial fibrillation; I10 Essential (primary) hypertension; B19.20 Unspecified viral hepatitis C without hepatic coma; I73.9 Peripheral vascular disease, unspecified; G62.9 Polyneuropathy, unspecified; I77.1 Stricture of artery; R10.9 Unspecified abdominal pain; R14.0 Abdominal distension (gaseous); M54.9 Dorsalgia, unspecified; G89.29 Other chronic pain; F41.9 Anxiety disorder, unspecified; F32.9 Major depressive disorder, single episode, unspecified; Z79.01 Long term (current) use of anticoagulants; Z87.01 Personal history of pneumonia (recurrent)
CPT/HCPCS: 71046; 80048; 80053; 82550; 82552; 83605; 83690; 83735; 84155; 84484; 85025; 85610; 85730; 87015; 87040; 87070; 87205; 87493; 87506; 87804; 92610; 94150; 94664; 96361; 96365; 96366; 96367; 96368; 96375; 99285; G0378; J0456; J0610; J0692; J0696; J1885; J1956; J2270; J2405; J3475; J7030; J7050; J7644

== ENCOUNTER 2017-05-21 12:56 | Emergency (ER) | payer MEDICARE, MEDICAID ==
[~2017-05-21 12:56] MED LIST changes: -AMIO0.1T PO; +AMOX875T2 PO; +CHOL4POW4 PO; +CYAN1TAB24; +LACTG PO; -LEVO500T8 PO; -METO-309 PO; -PRED10PA PO; -PROBCAP28 PO; +VANC125C3 PO; +guaiFENesin ER PO
[2017-05-21 13:13] VITALS: BP 115/78; PULSE 65; RESP 18; TEMP 97.7; O2SAT 100
[2017-05-21] MEDS ORDERED: methylPREDNISolone SOD SUCC 125 MG/2 ML VIAL IV PUSH ONE (13:45)
--- NOTE | 2017-05-21 13:50 | PD ---
HPI Chief Complaint: Respiratory Symptoms Time Seen by Provider: 13:24 Travel History International Travel<30 days: No Contact w/Intl Traveler<30days: No Traveled to known affect area: No History of Present Illness HPI 67yo M with PMH of COPD, afib on eliquis and cardizem presents to the ED with c/ o persistent sob and diarrhea. Pt was just discharge yesterday after being admitted 05/16/17-05/20/17 for aspiration pneumonia and cdiff. Pt was discharge with augmentin, vancomycin, cholestyramine and morphine. Said he has been taking his medication but not the vancomycin because the pharmacy didnt have it. Pt still has sharp chest pain when he takes a deep breath. Still with epigastric abdominal pain. PFSH Past Medical History Hx Anticoagulant Therapy: Yes (ELIQUIS) Arthritis: No Asthma: No Atrial Fibrillation: Yes Autoimmune Disease: No Blood Disorders: No Anxiety: Yes Depression: Yes Heart Rhythm Problems: Yes (a fib) Cancer: No Cardiovascular Problems: Yes (HTN) High Cholesterol: No Chemotherapy: No Chest Pain: No Congestive Heart Failure: No COPD: Yes Cerebrovascular Accident: No Diabetes: No Diminished Hearing: No Deep Vein Thrombosis: Yes (RLE) Endocrine: Yes Gastrointestinal Disorders: Yes (pancreatitis) GERD: No Glaucoma: No Genitourinary: No Headaches: No Hepatitis: Yes (hep C) Hiatal Hernia: No Heparin Induced Thrombocytopen: No Hypertension: Yes Immune Disorder: No Implanted Vascular Access Dvce: Yes Kidney Stones: No Musculoskeletal: Yes (R ankle surgery) Neurologic: Yes Psychiatric: Yes Reproductive: No Respiratory: Yes (COPD, emphysema, pneumonia ) Immunizations Current: Yes Migraines: No Myocardial Infarction: No Pancreatitis: Yes Pneumonia: Yes Radiation Therapy: No Renal Failure: No Seizures: No Sickle Cell Disease: No Sleep Apnea: No Thyroid Disease: Yes (borerline overactive) Ulcer: No Tetanus Vaccination: < 5 Years Influenza Vaccination: Yes Past Surgical History Abdominal Surgery: No AICD: No Appendectomy: No Arteriovenous Shunt: No Body Medical Devices: screws/pins in R ankle, metal in right femor into iliac crest Cardiac Surgery: No Cholecystectomy: No Ear Surgery: No Endocrine Surgery: No Eye Surgery: Yes (cataract L eye surg) Genitourinary Surgery: No Gynecologic Surgery: No Insulin Pump: No Joint Replacement: No Neurologic Surgery: No Oral Surgery: No Pacemaker: No Thoracic Surgery: No Tonsillectomy: Yes Other Surgery: Yes (left eye ) Social History Alcohol Use: No Tobacco Use: No Substance Use: No Allergies-Medications (Allergen,Severity, Reaction): Coded Allergies: codeine (Verified Allergy, Severe, TURN RED, SOB, HIVES, 05/16/17) ketoconazole (Verified Allergy, Intermediate, Rash, 05/16/17) ITCHING Reported Meds & Prescriptions Reported Meds & Active Scripts Active Amoxicillin-Clavulanate 875-125 mg Tab 875 Mg PO BID 5 Days not for use in CrCl <30 mL/minute Cholestyramine 4 Gm/Pkt Powd 4 Gm PO Q12HR 10 Days 1 packet contains 4 grams of cholestyramine. [guaiFENesin ER] 600 MG Tabcr 600 Mg PO BID 10 Days Floranex (Lactobacillus Acidophilus) 1 Gm Pkt 1 Gm PO QID 10 Days Vancomycin (Vancomycin HCl) 125 Mg Cap 125 Mg PO QID 10 Days Diltiazem CD 24 HR 300 Mg Caper 300 Mg PO DAILY Eliquis (Apixaban) 5 Mg Tab 5 Mg PO BID Reported B12 (Cyanocobalamin) 1,000 Mcg Tab Klonopin (Clonazepam) 1 Mg Tab 1 Mg PO TID Vitamin C (Ascorbic Acid) 1,000 Mg Tablet.er 1,000 Mg PO DAILY Spiriva Handihaler (Tiotropium Inh) 18 Mcg Cap 2 Puff INH DAILY 1 capsule = 18 mcg Morphine IR (Morphine Sulfate) 15 Mg Tab 15 Mg PO Q4HR PRN Multiple Vitamin 1 Tab 1 Tab PO DAILY Review of Systems Except as stated in HPI: all other systems reviewed are Neg Physical Exam Narrative GENERAL: 57yo M in mild distress. SKIN: Focused skin assessment warm/dry. HEAD: Atraumatic. Normocephalic. EYES: Pupils equal and round. No scleral icterus. No injection or drainage. ENT: No nasal bleeding or discharge. Mucous membranes pink and moist. NECK: Trachea midline. No JVD. CARDIOVASCULAR: Regular rate and rhythm. No murmur appreciated. RESPIRATORY: No accessory muscle use. Expiratory wheezing right upper and right lower lungs. GASTROINTESTINAL: Abdomen soft,+TTP epigastric region. No rebound tenderness or guarding. MUSCULOSKELETAL: No obvious deformities. No clubbing. No cyanosis. No edema. NEUROLOGICAL: Awake and alert. No obvious cranial nerve deficits. Motor grossly within normal limits. Normal speech. PSYCHIATRIC: Appropriate mood and affect; insight and judgment normal. Data Data Last Documented VS Vital Signs Date Time Temp Pulse Resp B/P (MAP) Pulse Ox O2 Delivery O2 Flow Rate FiO2 05/21/17 16:26 18 05/21/17 16:26 88 123/68 (86) 100 Room Air 05/21/17 13:55 21 05/21/17 13:13 97.7 Orders Orders Complete Blood Count With Diff (05/21/17 13:39) Comprehensive Metabolic Panel (05/21/17 13:39) Act Partial Throm Time (Ptt) (05/21/17 13:39) Prothrombin Time / Inr (Pt) (05/21/17 13:39) Magnesium (Mg) (05/21/17 13:39) Troponin I (05/21/17 13:39) Urinalysis - C+S If Indicated (05/21/17 13:39) Chest, Single Ap (05/21/17 13:39) Methylprednisolone So Succ Inj (Solumedr (05/21/17 13:45) Albuterol-Ipratropium Neb (Duoneb Neb) (05/21/17 13:45) Electrocardiogram (05/21/17 ) Lipase (05/21/17 13:39) Morphine Inj (Morphine Inj) (05/21/17 14:30) Ct Abd/Pel W Iv Contrast(Rout) (05/21/17 ) Iohexol 350 Inj (Omnipaque 350 Inj) (05/21/17 16:15) Ed Discharge Order (05/21/17 17:32) Vancomycin For Oral Use Only (Vancomycin (05/21/17 17:34) Labs Laboratory Tests Test 05/21/17 14:15 05/21/17 16:29 White Blood Count 7.8 TH/MM3 Red Blood Count 4.93 MIL/MM3 Hemoglobin 11.1 GM/DL Hematocrit 35.6 % Mean Corpuscular Volume 72.3 FL Mean Corpuscular Hemoglobin 22.4 PG Mean Corpuscular Hemoglobin Concent 31.0 % Red Cell Distribution Width 19.3 % Platelet Count 365 TH/MM3 Mean Platelet Volume 7.9 FL Neutrophils (%) (Auto) 54.0 % Lymphocytes (%) (Auto) 35.1 % Monocytes (%) (Auto) 6.1 % Eosinophils (%) (Auto) 0.5 % Basophils (%) (Auto) 4.3 % Neutrophils # (Auto) 4.3 TH/MM3 Lymphocytes # (Auto) 2.7 TH/MM3 Monocytes # (Auto) 0.5 TH/MM3 Eosinophils # (Auto) 0.0 TH/MM3 Basophils # (Auto) 0.3 TH/MM3 CBC Comment AUTO DIFF Differential Comment AUTO DIFF CONFIRMED Platelet Estimate NORMAL Platelet Morphology Comment NORMAL Prothrombin Time 15.0 SEC Prothromb Time International Ratio 1.5 RATIO Activated Partial Thromboplast Time 32.5 SEC Blood Urea Nitrogen 6 MG/DL Creatinine 0.67 MG/DL Random Glucose 89 MG/DL Total Protein 7.2 GM/DL Albumin 3.3 GM/DL Calcium Level 8.5 MG/DL Magnesium Level 1.8 MG/DL Alkaline Phosphatase 80 U/L Aspartate Amino Transf (AST/SGOT) 40 U/L Alanine Aminotransferase (ALT/SGPT) 32 U/L Total Bilirubin 0.1 MG/DL Sodium Level 138 MEQ/L Potassium Level 3.9 MEQ/L Chloride Level 106 MEQ/L Carbon Dioxide Level 24.6 MEQ/L Anion Gap 7 MEQ/L Estimat Glomerular Filtration Rate 119 ML/MIN Troponin I LESS THAN 0.02 NG/ML Lipase 101 U/L Urine Collection Type CLEAN CATCH Urine Color YELLOW Urine Turbidity CLEAR Urine pH 5.5 Urine Specific [place] 1.010 Urine Protein NEG mg/dL Urine Glucose (UA) NEG mg/dL Urine Ketones NEG mg/dL Urine Occult Blood NEG Urine Nitrite NEG Urine Bilirubin NEG Urine Urobilinogen 0.2 MG/DL Urine Leukocyte Esterase NEG Urine RBC 0-3 /hpf Urine Squamous Epithelial Cells 0-5 /hpf Microscopic Urinalysis Comment CULT NOT INDICATED Urine Collection Time 16:29 [facility] Medical Decision Making Medical Screen Exam Complete: Yes Emergency Medical Condition: Yes Interpretation(s) EKG: Afib at 69bpm. Normal axis. No St segment elevation or depression. Differential Diagnosis Cdiff colitis vs. dehydration vs. electrolyte abnormality vs. COPD exacerbation vs. pneumonia Narrative Course 67yo M with COPD here with c/o sob. However, pt is saturating at 100% on RA and speaking in complete sentences. He was just discharged yesterday on augmentin for aspiration pneumonia. He does have COPD and wheezing so duonebs and methylprednisolone given. Labs reviewed, no leukocytosis. H/H low at 11.1/ 35.6 but this is better than baseline. CXR showed advanced COPD changes. There are nodules and scarring in left upper lobe and left lower lobe. These are stable compared to previous dated 11/05/16. These have been assessed by previous CT imaging. CT a/p showed stable fibrotic changes in both lung bases. Nonspecific edema in the mesenteric fat and body wall suggestive of anasarca. No significant changes compared to prior study of 04/22/16. Pt given morphine, vancomycin PO here. Pt reevaluated at bedside and is not in acute distress. Pt now said his was finally able to get the vancomycin and can start taking it. Return precautions given. Diagnosis Primary Impression: C. difficile diarrhea Patient Instructions: General Instructions Departure Forms: Tests/Procedures Additional Instructions: Please follow up with your primary care physician and continue to take the medications you were discharge with yesterday. Med/Other Pt SpecificInfo: No Change to Meds Disposition: 01 DISCHARGE HOME Condition: Stable Sanjuanita West DO May 21, 2017 13:50
[2017-05-21] MEDS: RESP: ALBUTEROL 2.5 MG/IPRATROPIUM 0.5 MG NEB (SCH) INH ×2 (13:53→13:54)
[2017-05-21 13:55] VITALS: O2SAT 100
--- NOTE | 2017-05-21 14:03 | RADRPT ---
EXAM DATE/TIME: 05/21/2017 13:44 [facility] COMPARISON: CHEST SINGLE AP, November 05, 2016, 11:34. CT THORAX W CONTRAST, November 28, 2016, 11:44. CHEST PA & LAT, May 16, 2017, 10:07. INDICATIONS : Short of breath. MEDICAL HISTORY : Pancreatitis. Rheumatoid arthritis. Hepatitis C. Thyroid disease. Hypertension. A- fib. DVT. COPD . Emphysema. SURGICAL HISTORY : Tonsillectomy. Right ankle. ENCOUNTER: Initial ACUITY: 1 day PAIN SCORE: 0/10 LOCATION: chest FINDINGS: The heart and mediastinal contours are within normal limits. There are advanced COPD changes. There i s an area of scarring involving the left lung apex and in the left lower lobe. Comparison is made lemuel k to previous examination dated 11/05/16. These areas appear similar. The visualized bony structures are grossly intact. CONCLUSION: 1. Advanced COPD changes. 2. There are nodules an area of scarring evident involving the left upper lobe and left lower lobe. T hese are stable compared to previous dated 11/05/16. These have been assessed by previous CT imaging. Regis Moreno MD on May 21, 2017 at 13:59 Board Certified Radiologist. This report was verified electronically.
[2017-05-21 14:25] LABS: AUTOMATED NEUTROPHIL # 4.3 TH/MM3 (1.8-7.7); BASOPHIL # 0.3 TH/MM3 (0-0.2); BASOPHIL % 4.3 % (0.0-2.0); EOSINOPHIL % 0.5 % (0.0-4.0); HEMATOCRIT 35.6 % (39.0-51.0); HEMOGLOBIN 11.1 GM/DL (13.0-17.0); LYMPH % 35.1 % (9.0-44.0); LYMPHOCYTE # 2.7 TH/MM3 (1.0-4.8); MEAN CELL VOLUME 72.3 FL (80.0-100.0); MEAN CORPUSCULAR HEMOGLOBIN 22.4 PG (27.0-34.0); MEAN PLATELET VOLUME 7.9 FL (7.0-11.0); MONO % 6.1 % (0.0-8.0); MONOCYTE # 0.5 TH/MM3 (0-0.9); PLATELET COUNT 365 TH/MM3 (150-450); RED BLOOD COUNT 4.93 MIL/MM3 (4.50-5.90); RED CELL DISTRIBUTION WIDTH 19.3 % (11.6-17.2); WHITE BLOOD COUNT 7.8 TH/MM3 (4.0-11.0)
[2017-05-21] MEDS ORDERED: MORPHINE SULFATE 4 MG/ML INJ IV PUSH ONE (14:30)
[2017-05-21 14:39] LABS: CHLORIDE 106 MEQ/L (98-107); SODIUM (NA) 138 MEQ/L (136-145)
[2017-05-21 14:42] LABS: ALBUMIN 3.3 GM/DL (3.4-5.0)
[2017-05-21 14:44] LABS: INTERNATIONAL NORMALIZED RATIO 1.5 RATIO
[2017-05-21 15:32] LABS: ALKALINE PHOSPHATASE 80 U/L (45-117); ALT (GPT) 32 U/L (12-78); AST (GOT) 40 U/L (15-37); BICARBONATE 24.6 MEQ/L (21.0-32.0); BLOOD UREA NITROGEN 6 MG/DL (7-18); CALCIUM 8.5 MG/DL (8.5-10.1); CREATININE 0.67 MG/DL (0.60-1.30); GLOMERULAR FILTRATION RATE 119 ML/MIN (>89); GLUCOSE,RANDOM 89 MG/DL (74-106); MAGNESIUM 1.8 MG/DL (1.5-2.5); TOTAL BILIRUBIN ADULT 0.1 MG/DL (0.2-1.0); TOTAL PROTEIN 7.2 GM/DL (6.4-8.2); TROPONIN I LESS THAN 0.02 NG/ML (0.02-0.05)
[2017-05-21] MEDS ORDERED: IOHEXOL 350 MG/ML 10 ML VIAL (for RAD DIAG) IVCONTRAST ONE (16:15)
--- NOTE | 2017-05-21 16:24 | RADRPT ---
EXAM DATE/TIME: 05/21/2017 16:03 [facility] COMPARISON: CT ABDOMEN & PELVIS W CONTRAST, April 22, 2016, 22:49. INDICATIONS : Diffuse abdominal pain, weakness, short of breath and diarrhea. IV CONTRAST: 85 cc Omnipaque 350 (iohexol) IV ORAL CONTRAST: No oral contrast ingested. RADIATION DOSE: 6.48 CTDIvol (mGy) MEDICAL HISTORY : Deep venous thrombosis. Cardiovascular disease Chronic obstructive pulmonary disease.Hep C. Pancreat itis. Hypertension. C-diff. SURGICAL HISTORY : None. ENCOUNTER: Initial ACUITY: 4 - 6 days PAIN SCALE: 8/10 LOCATION: Diffuse abdomen. TECHNIQUE: Volumetric scanning of the abdomen and pelvis was performed. Using automated exposure control and ad justment of the mA and/or kV according to patient size, radiation dose was kept as low as reasonably achievable to obtain optimal diagnostic quality images. DICOM format image data is available electro nically for review and comparison. FINDINGS: LOWER LUNGS: Stable fibrotic changes in the lung bases. Small amount of pleural thickening versus effusion right l bridgette base. LIVER: Homogeneous density without lesion. There is no dilation of the biliary tree. No calcified gallston es. SPLEEN: Normal size without lesion. PANCREAS: Within normal limits. KIDNEYS: Normal in size and shape. There is no mass, stone or hydronephrosis. Stable right renal cyst measuri ng 1.4 cm. There is a smaller cyst measuring approximately 1 cm in the right kidney. No significant c hange compared to the prior study. ADRENAL GLANDS: Within normal limits. VASCULAR: There is no aortic aneurysm. BOWEL/MESENTERY: The stomach, small bowel, and colon demonstrate no acute abnormality. There is no free intraperitone al air or fluid. There is some nonspecific edema in the mesenteric fat. ABDOMINAL WALL: Nonspecific edema in the body wall suggestive of anasarca. RETROPERITONEUM: There is no lymphadenopathy. BLADDER: No wall thickening or mass. REPRODUCTIVE: Within normal limits. INGUINAL: There is no lymphadenopathy or hernia. MUSCULOSKELETAL: Within normal limits for patient age. No significant change compared to the prior exam. CONCLUSION: 1. Stable fibrotic changes in both lung bases. 2. Nonspecific edema in the mesenteric fat and body wall suggestive of anasarca. 3. A few benign stable right renal cyst. 4. No significant changes compared to the prior study of 04/22/2016. Yon Rush MD on May 21, 2017 at 16:19 Board Certified Radiologist. This report was verified electronically.
[2017-05-21 16:26] VITALS: BP 123/68; PULSE 88; RESP 18; O2SAT 100
[2017-05-21 16:42] LABS: BILIRUBIN, URINE NEG (NEG); BLOOD, URINE NEG (NEG); GLUCOSE,URINE NEG (NEG); KETONE, URINE NEG (NEG); NITRITE,URINE NEG (NEG); PH, URINE 5.5 (5.0-8.5); URINE COLOR YELLOW (YELLW/STRAW); URINE LEUKOCYTE ESTERASE NEG (NEG)
[2017-05-21 16:56] LABS: RBC, URINE 0-3 /hpf (0-3); SQUAMOUS EPITHELIAL CELL URINE 0-5 /hpf (0-5)
[2017-05-21] MEDS ORDERED: VANCOMYCIN 500 MG VIAL (FOR ORAL USE ONLY) PO STA (17:34)
[2017-05-21 17:48] VITALS: BP 122/62
--- NOTE | 2017-05-22 00:03 | EKG ---
Date Performed: 05/21/2017 Time Performed: 14:03:03 PTAGE: 67 years EKG: ATRIAL FIBRILLATION LOW QRS VOLTAGE IN EXTREMITY LEADS ABNORMAL RHYTHM ECG PREVIOUS TRACING : 03/01/2017 13.39 Since the prior tracing, there has been no significant lenz DOCTOR: Trey Masterson Interpretating Date/Time 05/22/2017 00:02:13
== END 2017-05-21 18:30 | disposition home or self-care (01) ==
LOC: PHED 12:56
DX: A04.72 Enterocolitis due to Clostridium difficile, not specified as recurrent (principal); J44.9 Chronic obstructive pulmonary disease, unspecified; I48.91 Unspecified atrial fibrillation; I10 Essential (primary) hypertension; B19.20 Unspecified viral hepatitis C without hepatic coma; E07.9 Disorder of thyroid, unspecified; M06.9 Rheumatoid arthritis, unspecified; F32.9 Major depressive disorder, single episode, unspecified; F41.9 Anxiety disorder, unspecified; Z86.718 Personal history of other venous thrombosis and embolism; Z88.8 Allergy status to other drugs, medicaments and biological substances; Z79.01 Long term (current) use of anticoagulants; Z79.899 Other long term (current) drug therapy
CPT/HCPCS: 71045; 74177; 80053; 81001; 83690; 83735; 84484; 85025; 85610; 85730; 93005; 94640; 94664; 96374; 96375; 99285; J2270; J2930; Q9967

== ENCOUNTER 2017-05-22 16:27 | Emergency (ER) | payer MEDICARE, MEDICAID ==
[~2017-05-22] VITALS: Ht 175.3 cm; Wt 60.0 kg
[2017-05-22 16:57] VITALS: BP 131/73; PULSE 90; RESP 18; TEMP 98.2; O2SAT 100
== END 2017-05-22 21:56 | disposition left against medical advice (07) ==
LOC: NED 16:27
DX: F99 Mental disorder, not otherwise specified (principal)
CPT/HCPCS: 80307; 99281

== ENCOUNTER 2017-05-26 09:34 | Emergency (ER) | payer MEDICARE, MEDICAID ==
--- NOTE | 2017-05-26 09:56 | PD ---
HPI Chief Complaint: Cold / Flu Symptoms Time Seen by Provider: 09:42 Travel History International Travel<30 days: No Contact w/Intl Traveler<30days: No Traveled to known affect area: No History of Present Illness HPI The patient is a 67-year-old male who presents emergency department for shortness of breath and diarrhea. The patient has multiple visits in the month of May for shortness of breath and diarrhea. The patient was hospitalized earlier this month, underwent chest x-ray, CT of the thorax, and laboratory evaluation. The patient was diagnosed with C. difficile, was prescribed vancomycin. He has been taking the vancomycin, as well as over-the- counter Pepto-Bismol, diarrhea has slightly improved. He continues to have shortness of breath, chest congestion, dry cough. He has been using breathing treatments at home, but is not currently on steroids. He does have a history tobacco use, last cigarette was this morning. The patient is followed by a head strength and conditioning coach, Dr. Nadia Zuniga, on an outpatient basis. However, his appointment is not until later this month. He has an appointment with his primary physician next month in regards to his C. difficile. He denies any fever, chills, or sweats. PFSH Past Medical History Hx Anticoagulant Therapy: Yes (ELIQUIS) Arthritis: No Asthma: No Atrial Fibrillation: Yes Autoimmune Disease: No Blood Disorders: No Anxiety: Yes Depression: Yes Heart Rhythm Problems: Yes (a fib) Cancer: No Cardiovascular Problems: Yes (A. FIB., HTN) High Cholesterol: No Chemotherapy: No Chest Pain: No Congestive Heart Failure: No COPD: Yes Cerebrovascular Accident: No Diabetes: No Diminished Hearing: No Deep Vein Thrombosis: Yes (RLE) Endocrine: Yes Gastrointestinal Disorders: Yes (pancreatitis) GERD: No Glaucoma: No Genitourinary: No Headaches: No Hepatitis: Yes (hep C) Hiatal Hernia: No Heparin Induced Thrombocytopen: No Hypertension: Yes Immune Disorder: No Implanted Vascular Access Dvce: Yes Kidney Stones: No Musculoskeletal: Yes (R ankle surgery) Neurologic: Yes Psychiatric: Yes Reproductive: No Respiratory: Yes (COPD, emphysema, pneumonia ) Immunizations Current: Yes Migraines: No Myocardial Infarction: No Pancreatitis: Yes Pneumonia: Yes Radiation Therapy: No Renal Failure: No Seizures: No Sickle Cell Disease: No Sleep Apnea: No Thyroid Disease: Yes (borerline overactive) Ulcer: No Tetanus Vaccination: < 5 Years Past Surgical History Abdominal Surgery: No AICD: No Appendectomy: No Arteriovenous Shunt: No Body Medical Devices: screws/pins in R ankle, metal in right femor into iliac crest Cardiac Surgery: No Cholecystectomy: No Ear Surgery: No Endocrine Surgery: No Eye Surgery: Yes (cataract L eye surg) Genitourinary Surgery: No Gynecologic Surgery: No Insulin Pump: No Joint Replacement: No Neurologic Surgery: No Oral Surgery: No Pacemaker: No Thoracic Surgery: No Tonsillectomy: Yes Other Surgery: Yes (left eye ) Social History Alcohol Use: No Tobacco Use: No Substance Use: No Allergies-Medications (Allergen,Severity, Reaction): Coded Allergies: codeine (Verified Allergy, Severe, TURN RED, SOB, HIVES, 05/26/17) ketoconazole (Verified Allergy, Intermediate, Rash, 05/26/17) ITCHING Reported Meds & Prescriptions Reported Meds & Active Scripts Active Cholestyramine 4 Gm/Pkt Powd 4 Gm PO Q12HR 10 Days 1 packet contains 4 grams of cholestyramine. Floranex (Lactobacillus Acidophilus) 1 Gm Pkt 1 Gm PO QID 10 Days Vancomycin (Vancomycin HCl) 125 Mg Cap 125 Mg PO QID 10 Days Diltiazem CD 24 HR 300 Mg Caper 300 Mg PO DAILY Eliquis (Apixaban) 5 Mg Tab 5 Mg PO BID Reported B12 (Cyanocobalamin) 1,000 Mcg Tab Klonopin (Clonazepam) 1 Mg Tab 1 Mg PO TID Vitamin C (Ascorbic Acid) 1,000 Mg Tablet.er 1,000 Mg PO DAILY Spiriva Handihaler (Tiotropium Inh) 18 Mcg Cap 2 Puff INH DAILY 1 capsule = 18 mcg Morphine IR (Morphine Sulfate) 15 Mg Tab 15 Mg PO Q4HR PRN Multiple Vitamin 1 Tab 1 Tab PO DAILY Review of Systems Except as stated in HPI: all other systems reviewed are Neg General / Constitutional: No: Fever HENT: Positive: Congestion Cardiovascular: No: Chest Pain or Discomfort Respiratory: Positive: Cough, Shortness of Breath, Wheezing Gastrointestinal: Positive: Diarrhea, No: Nausea, Vomiting Musculoskeletal: Positive: Weakness Physical Exam Narrative GENERAL: Awake, alert, nontoxic-appearing 67 year-old male appears his stated age and is in no acute respiratory distress. SKIN: Focused skin assessment warm/dry. HEAD: Atraumatic. Normocephalic. EYES: No injection or drainage. ENT: No nasal bleeding or discharge. Mucous membranes pink and moist. Breath smells of tobacco. NECK: Trachea midline. No JVD. CARDIOVASCULAR: Regular, tachycardic heart rate 105. RESPIRATORY: No accessory muscle use. Prolonged expiratory phase with a few scattered wheezes. GASTROINTESTINAL: Abdomen soft, non-tender, nondistended. No rebound tenderness. MUSCULOSKELETAL: No obvious deformities. No clubbing. No cyanosis. No edema. NEUROLOGICAL: Awake and alert. No obvious cranial nerve deficits. Motor grossly within normal limits. Normal speech. PSYCHIATRIC: Appropriate mood and affect; insight and judgment normal. Data Data Last Documented VS Vital Signs Date Time Temp Pulse Resp B/P (MAP) Pulse Ox O2 Delivery O2 Flow Rate FiO2 05/26/17 10:25 Room Air 05/26/17 10:25 98 05/26/17 09:40 Orders Orders Complete Blood Count With Diff (05/26/17 09:49) Comprehensive Metabolic Panel (05/26/17 09:49) B-Type Natriuretic Peptide (05/26/17 09:49) Magnesium (Mg) (05/26/17 09:49) Ckmb (Isoenzyme) Profile (05/26/17 09:49) Troponin I (05/26/17 09:49) Iv Access Insert/Monitor (05/26/17 09:49) Electrocardiogram (05/26/17 09:49) Ecg Monitoring (05/26/17 09:49) Oximetry (05/26/17 09:49) Oxygen Administration (05/26/17 09:49) Sodium Chloride 0.9% Flush (Ns Flush) (05/26/17 10:00) Methylprednisolone So Succ Inj (Solumedr (05/26/17 10:00) Albuterol-Ipratropium Neb (Duoneb Neb) (05/26/17 10:00) Ketorolac Inj (Toradol Inj) (05/26/17 11:00) Potassium Chloride (Kcl) (05/26/17 11:15) CKMB (05/26/17 10:40) CKMB% (05/26/17 10:40) Labs Laboratory Tests Test 05/26/17 10:40 White Blood Count 7.4 TH/MM3 Red Blood Count 4.31 MIL/MM3 Hemoglobin 10.3 GM/DL Hematocrit 31.2 % Mean Corpuscular Volume 72.5 FL Mean Corpuscular Hemoglobin 24.0 PG Mean Corpuscular Hemoglobin Concent 33.1 % Red Cell Distribution Width 19.7 % Platelet Count 383 TH/MM3 Mean Platelet Volume 8.0 FL Neutrophils (%) (Auto) 52.1 % Lymphocytes (%) (Auto) 38.2 % Monocytes (%) (Auto) 7.3 % Eosinophils (%) (Auto) 1.7 % Basophils (%) (Auto) 0.7 % Neutrophils # (Auto) 3.9 TH/MM3 Lymphocytes # (Auto) 2.8 TH/MM3 Monocytes # (Auto) 0.5 TH/MM3 Eosinophils # (Auto) 0.1 TH/MM3 Basophils # (Auto) 0.1 TH/MM3 CBC Comment AUTO DIFF Differential Comment AUTO DIFF CONFIRMED Platelet Estimate NORMAL Platelet Morphology Comment ENLARGED Target Cells 1+ Stomatocytes 1+ Blood Urea Nitrogen 9 MG/DL Creatinine 0.63 MG/DL Random Glucose 78 MG/DL Total Protein 7.3 GM/DL Albumin 3.4 GM/DL Calcium Level 7.9 MG/DL Magnesium Level 2.0 MG/DL Alkaline Phosphatase 83 U/L Aspartate Amino Transf (AST/SGOT) 35 U/L Alanine Aminotransferase (ALT/SGPT) 38 U/L Total Bilirubin 0.2 MG/DL Sodium Level 138 MEQ/L Potassium Level 3.0 MEQ/L Chloride Level 106 MEQ/L Carbon Dioxide Level 24.0 MEQ/L Anion Gap 8 MEQ/L Estimat Glomerular Filtration Rate 127 ML/MIN Total Creatine Kinase 112 U/L Troponin I LESS THAN 0.02 NG/ML B-Type Natriuretic Peptide 222 PG/ML MDM Medical Decision Making Medical Screen Exam Complete: Yes Emergency Medical Condition: Yes Medical Record Reviewed: Yes Interpretation(s) EKG reveals atrial fibrillation with aberrant conduction. Rate in the 70s. No discernible P waves. Laboratory Tests Test 05/26/17 10:40 White Blood Count 7.4 TH/MM3 Red Blood Count 4.31 MIL/MM3 Hemoglobin 10.3 GM/DL Hematocrit 31.2 % Mean Corpuscular Volume 72.5 FL Mean Corpuscular Hemoglobin 24.0 PG Mean Corpuscular Hemoglobin Concent 33.1 % Red Cell Distribution Width 19.7 % Platelet Count 383 TH/MM3 Mean Platelet Volume 8.0 FL Neutrophils (%) (Auto) 52.1 % Lymphocytes (%) (Auto) 38.2 % Monocytes (%) (Auto) 7.3 % Eosinophils (%) (Auto) 1.7 % Basophils (%) (Auto) 0.7 % Neutrophils # (Auto) 3.9 TH/MM3 Lymphocytes # (Auto) 2.8 TH/MM3 Monocytes # (Auto) 0.5 TH/MM3 Eosinophils # (Auto) 0.1 TH/MM3 Basophils # (Auto) 0.1 TH/MM3 CBC Comment AUTO DIFF Differential Comment AUTO DIFF CONFIRMED Platelet Estimate NORMAL Platelet Morphology Comment ENLARGED Target Cells 1+ Stomatocytes 1+ Blood Urea Nitrogen 9 MG/DL Creatinine 0.63 MG/DL Random Glucose 78 MG/DL Total Protein 7.3 GM/DL Albumin 3.4 GM/DL Calcium Level 7.9 MG/DL Magnesium Level 2.0 MG/DL Alkaline Phosphatase 83 U/L Aspartate Amino Transf (AST/SGOT) 35 U/L Alanine Aminotransferase (ALT/SGPT) 38 U/L Total Bilirubin 0.2 MG/DL Sodium Level 138 MEQ/L Potassium Level 3.0 MEQ/L Chloride Level 106 MEQ/L Carbon Dioxide Level 24.0 MEQ/L Anion Gap 8 MEQ/L Estimat Glomerular Filtration Rate 127 ML/MIN Total Creatine Kinase 112 U/L Troponin I LESS THAN 0.02 NG/ML B-Type Natriuretic Peptide 222 PG/ML Differential Diagnosis Differential diagnosis includes COPD exacerbation, bronchitis, pneumonia, pneumothorax, tobacco abuse, C. difficile, dehydration, congestive heart failure. Narrative Course IV was established, labs are drawn and sent, and the patient was placed on cardiac telemetry monitoring and continuous pulse oximetry monitoring. I reviewed the patient's EMR, he had 2 x-rays and a CT of the thorax earlier this month which reveals COPD changes, no other acute findings. Patient also tested positive for C. difficile. Patient was administered Solu-Medrol and DuoNeb's. The patient was counseled in regards to tobacco cessation and progression of COPD. The patient's potassium is 3.0, was replaced orally. The patient requested pain medications for chronic left ankle pain, was administered Toradol 15 mg intravenously. The patient's BNP was minimally elevated at 222. Troponin is negative. The patient is already on amoxicillin for aspiration pneumonia. His report and vancomycin for his diarrhea. He is advised to follow -up with his primary physician. He may benefit from evaluation by gastroenterology if he continues to have diarrhea after treatment with vancomycin as he may require dual therapy versus other alternative treatments. Diagnosis Primary Impression: Acute exacerbation of chronic obstructive pulmonary disease (COPD) Additional Impressions: C. difficile diarrhea Hypokalemia Patient Instructions: General Instructions Additional Instructions: Prednisone and albuterol inhalers as directed. Continue amoxicillin and vancomycin. Follow-up with her primary physician. Follow-up with gastroenterology. Please provide the patient a copy of his labs at discharge. Med/Other Pt SpecificInfo: Prescription(s) given Scripts Albuterol Neb (Albuterol Neb) 2.5 Mg/3 Ml Neb 2.5 MG NEB Q4HR NEB Y for SHORTNESS OF BREATH, #60 NEBULE 0 Refills Prov: Delano Terry MD 05/26/17 Prednisone (Prednisone) 20 Mg Tab 40 MG PO DAILY for 4 Days, #8 TAB 0 Refills Take 40 mg (2 tablets) daily for 5 days Prov: Delano Terry MD 05/26/17 Disposition: 01 DISCHARGE HOME Condition: Stable Delano Terry MD May 26, 2017 09:56
[2017-05-26] MEDS ORDERED: methylPREDNISolone SOD SUCC 125 MG/2 ML VIAL IV PUSH ONE (10:00)
[2017-05-26] MEDS ORDERED: SODIUM CHLORIDE 0.9% FLUSH 10 ML FLUSH IVF PRN (10:00)
[2017-05-26] MEDS: RESP: ALBUTEROL 2.5 MG/IPRATROPIUM 0.5 MG NEB (SCH) INH (10:01)
[2017-05-26 10:51] LABS: AUTOMATED NEUTROPHIL # 3.9 TH/MM3 (1.8-7.7); BASOPHIL # 0.1 TH/MM3 (0-0.2); BASOPHIL % 0.7 % (0.0-2.0); EOSINOPHIL # 0.1 TH/MM3 (0-0.4); EOSINOPHIL % 1.7 % (0.0-4.0); HEMATOCRIT 31.2 % (39.0-51.0); HEMOGLOBIN 10.3 GM/DL (13.0-17.0); LYMPH % 38.2 % (9.0-44.0); LYMPHOCYTE # 2.8 TH/MM3 (1.0-4.8); MEAN CELL VOLUME 72.5 FL (80.0-100.0); MEAN CORPUSCULAR HGB CONC 33.1 % (32.0-36.0); MONO % 7.3 % (0.0-8.0); MONOCYTE # 0.5 TH/MM3 (0-0.9); NEUT % 52.1 % (16.0-70.0); PLATELET COUNT 383 TH/MM3 (150-450); RED BLOOD COUNT 4.31 MIL/MM3 (4.50-5.90); RED CELL DISTRIBUTION WIDTH 19.7 % (11.6-17.2); WHITE BLOOD COUNT 7.4 TH/MM3 (4.0-11.0)
[2017-05-26] MEDS ORDERED: KETOROLAC TROMETHAMINE 30 MG/ML (IVP) VIAL IV PUSH ONE (11:00)
[2017-05-26 11:07] LABS: CHLORIDE 106 MEQ/L (98-107); SODIUM (NA) 138 MEQ/L (136-145)
[2017-05-26 11:10] LABS: CALCIUM 7.9 MG/DL (8.5-10.1)
[2017-05-26 11:11] LABS: ALBUMIN 3.4 GM/DL (3.4-5.0); BLOOD UREA NITROGEN 9 MG/DL (7-18); GLUCOSE,RANDOM 78 MG/DL (74-106)
[2017-05-26 11:14] LABS: ALT (GPT) 38 U/L (12-78); AST (GOT) 35 U/L (15-37); CREATININE 0.63 MG/DL (0.60-1.30); GLOMERULAR FILTRATION RATE 127 ML/MIN (>89)
[2017-05-26] MEDS ORDERED: POTASSIUM CHLORIDE 20 MEQ CONTROLLED RELEASE TAB PO ONE (11:15)
[2017-05-26 11:16] LABS: TOTAL BILIRUBIN ADULT 0.2 MG/DL (0.2-1.0); TOTAL PROTEIN 7.3 GM/DL (6.4-8.2)
[2017-05-26 11:17] LABS: ALKALINE PHOSPHATASE 83 U/L (45-117); STOMATOCYTES 1+ (NORMAL); TARGET CELLS 1+ (NORMAL)
[2017-05-26 11:19] LABS: TROPONIN I LESS THAN 0.02 NG/ML (0.02-0.05)
[2017-05-26] MEDS ORDERED: ALBU0.08 NEB (11:25)
[2017-05-26] MEDS ORDERED: PRED20 PO (11:25)
--- NOTE | 2017-05-26 19:07 | EKG ---
Date Performed: 05/26/2017 Time Performed: 09:57:29 PTAGE: 67 years EKG: ATRIAL FIBRILLATION WITH ABERRANT CONDUCTION OR VENTRICULAR PREMATURE COMPLEXES ABNORMAL [facility] ECG PREVIOUS TRACING : 05/21/2017 14.03 Since the previous tracing, no significant change noted DOCTOR: Sherry Stearns Interpretating Date/Time 05/26/2017 19:06:16
== END 2017-05-26 12:03 | disposition home or self-care (01) ==
LOC: PHED 09:34
DX: J44.1 Chronic obstructive pulmonary disease with (acute) exacerbation (principal); A04.72 Enterocolitis due to Clostridium difficile, not specified as recurrent; E87.6 Hypokalemia; R19.7 Diarrhea, unspecified; F41.8 Other specified anxiety disorders; I10 Essential (primary) hypertension; I48.91 Unspecified atrial fibrillation; Z79.01 Long term (current) use of anticoagulants; Z72.0 Tobacco use
CPT/HCPCS: 80053; 82550; 82552; 83735; 83880; 84484; 85025; 93005; 94640; 94664; 96374; 96375; 99284; J1885; J2930

== ENCOUNTER 2017-08-10 09:40 | Observation (INO) | payer MEDICARE, MEDICAID ==
[2017-08-10] VITALS (11 sets, daily range): BP systolic 95–114; BP diastolic 61–89; PULSE 71–114; RESP 16–20; TEMP 97.1–97.8; O2SAT 89–100
[~2017-08-10] VITALS: Ht 175.3 cm; Wt 68.3 kg
[~2017-08-10 09:40] MED LIST changes: +ALBU0.08 NEB; -AMOX875T2 PO; +PRED20 PO; -guaiFENesin ER PO
[2017-08-10] MEDS ORDERED: DILTIAZEM HCL 30 MG TAB PO ONE (10:30)
[2017-08-10] MEDS ORDERED: ONDANSETRON HCL 4 MG/2 ML VIAL IV PUSH ONE (10:30)
[2017-08-10] MEDS ORDERED: SODIUM CHLOR 0.9% 1000 ML INJ 1,000 ML IV ONE (10:30)
--- NOTE | 2017-08-10 10:48 | RADRPT ---
EXAM DATE: 08/10/2017 10:44 AM EDT AGE/SEX: 67 years / Male INDICATIONS: Palpitations. CLINICAL DATA: This is the patient's initial encounter. Patient reports that signs and symptoms have been present for 1 day and indicates a pain score of 3/10. MEDICAL/SURGICAL HISTORY: . Pancreatitis. Rheumatoid arthritis. Hepatitis C. Thyroid disease. H ypertension. A- fib. DVT. COPD. Emphysema. . Tonsillectomy. Right ankle COMPARISON: [facility]PO, CHEST SINGLE AP, 05/21/2017. . FINDINGS: A single AP view of the chest demonstrates the parenchymal density left upper lobe. Minimal density l eft lower lobe.. The cardiomediastinal contours are unremarkable. Osseous structures are intact. CONCLUSION: 1. Parenchymal density left upper lobe is stable. 2. Minimal patchy density left lower lobe. Electronically signed by: Willie Ash MD 08/10/2017 10:46 AM EDT
[2017-08-10 10:50] LABS: AUTOMATED NEUTROPHIL # 3.9 TH/MM3 (1.8-7.7); BASOPHIL # 0.1 TH/MM3 (0-0.2); BASOPHIL % 1.1 % (0.0-2.0); EOSINOPHIL # 0.1 TH/MM3 (0-0.4); EOSINOPHIL % 1.7 % (0.0-4.0); HEMATOCRIT 33.7 % (39.0-51.0); HEMOGLOBIN 11.1 GM/DL (13.0-17.0); LYMPH % 36.6 % (9.0-44.0); LYMPHOCYTE # 2.6 TH/MM3 (1.0-4.8); MEAN CELL VOLUME 72.4 FL (80.0-100.0); MEAN CORPUSCULAR HEMOGLOBIN 23.9 PG (27.0-34.0); MEAN PLATELET VOLUME 8.7 FL (7.0-11.0); MONO % 7.6 % (0.0-8.0); MONOCYTE # 0.5 TH/MM3 (0-0.9); PLATELET COUNT 269 TH/MM3 (150-450); RED BLOOD COUNT 4.66 MIL/MM3 (4.50-5.90); RED CELL DISTRIBUTION WIDTH 20.3 % (11.6-17.2); WHITE BLOOD COUNT 7.2 TH/MM3 (4.0-11.0)
[2017-08-10 10:56] LABS: INTERNATIONAL NORMALIZED RATIO 1.1 RATIO; PROTHROMBIN TIME - PATIENT 11.5 SEC (9.8-11.6)
--- NOTE | 2017-08-10 11:13 | EKG ---
Date Performed: 08/10/2017 Time Performed: 10:16:59 PTAGE: 67 years EKG: ATRIAL FIBRILLATION WITH RAPID VENTRICULAR RESPONSE MINIMAL ST DEPRESSION ABNORMAL RHYTHM E CG PREVIOUS TRACING : 05/26/2017 09.57 Compared to previous tracing, heart rate has increased. DOCTOR: Gentry Wilkinson Interpretating Date/Time 08/10/2017 11:12:49
--- NOTE | 2017-08-10 11:15 | PD ---
HPI Chief Complaint: Cardiac Complaint Time Seen by Provider: 10:11 Travel History International Travel<30 days: No Contact w/Intl Traveler<30days: No Traveled to known affect area: No History of Present Illness HPI 67-year-old male is complaining of palpitations. He has been having vomiting and diarrhea for several days. He has had C. difficile in the past. He has not been on any antibiotics recently. He does have a history of atrial fibrillation and is on Cardizem and Eliquis. He has taken his Cardizem this morning but he may have vomited it back. He has chronic pain in both of his feet. He had an injury to his right foot and has had multiple surgeries on the foot PFSH Past Medical History Hx Anticoagulant Therapy: Yes (ELIQUIS) Arthritis: No Asthma: No Atrial Fibrillation: Yes Autoimmune Disease: No Blood Disorders: No Anxiety: Yes Depression: Yes Heart Rhythm Problems: Yes (a fib) Cancer: No Cardiovascular Problems: Yes High Cholesterol: No Chemotherapy: No Chest Pain: No Congestive Heart Failure: No COPD: Yes Cerebrovascular Accident: No Diabetes: No Diminished Hearing: No Deep Vein Thrombosis: Yes (RLE) Endocrine: Yes Gastrointestinal Disorders: Yes (pancreatitis) GERD: No Glaucoma: No Genitourinary: No Headaches: No Hepatitis: Yes (hep C) Hiatal Hernia: No Heparin Induced Thrombocytopen: No Hypertension: Yes Immune Disorder: No Implanted Vascular Access Dvce: Yes Kidney Stones: No Musculoskeletal: Yes (R ankle surgery) Neurologic: Yes Psychiatric: Yes Reproductive: No Respiratory: Yes (COPD, emphysema, pneumonia ) Immunizations Current: Yes Migraines: No Myocardial Infarction: No Pancreatitis: Yes Pneumonia: Yes Radiation Therapy: No Renal Failure: No Seizures: No Sickle Cell Disease: No Sleep Apnea: No Thyroid Disease: Yes (borerline overactive) Ulcer: No Influenza Vaccination: Yes Past Surgical History Abdominal Surgery: No AICD: No Appendectomy: No Arteriovenous Shunt: No Body Medical Devices: screws/pins in R ankle, metal in right femor into iliac crest Cardiac Surgery: No Cholecystectomy: No Ear Surgery: No Endocrine Surgery: No Eye Surgery: Yes (cataract L eye surg) Genitourinary Surgery: No Gynecologic Surgery: No Hysterectomy: Yes (AFIB/ HBP) Insulin Pump: No Joint Replacement: No Neurologic Surgery: No Oral Surgery: No Pacemaker: No Thoracic Surgery: No Tonsillectomy: Yes Other Surgery: Yes (left eye ) Social History Alcohol Use: No Tobacco Use: No Substance Use: No Allergies-Medications (Allergen,Severity, Reaction): Coded Allergies: codeine (Verified Allergy, Severe, TURN RED, SOB, HIVES, 08/10/17) ketoconazole (Verified Allergy, Intermediate, Rash, 08/10/17) ITCHING Reported Meds & Prescriptions Reported Meds & Active Scripts Active Albuterol Neb (Albuterol Sulfate) 2.5 Mg/3 Ml Neb 2.5 Mg NEB Q4HR NEB PRN Floranex (Lactobacillus Acidophilus) 1 Gm Pkt 1 Gm PO QID 10 Days Diltiazem CD 24 HR 300 Mg Caper 300 Mg PO DAILY Eliquis (Apixaban) 5 Mg Tab 5 Mg PO BID Reported B12 (Cyanocobalamin) 1,000 Mcg Tab Klonopin (Clonazepam) 1 Mg Tab 1 Mg PO TID Vitamin C (Ascorbic Acid) 1,000 Mg Tablet.er 1,000 Mg PO DAILY Spiriva Handihaler (Tiotropium Inh) 18 Mcg Cap 2 Puff INH DAILY 1 capsule = 18 mcg Morphine IR (Morphine Sulfate) 15 Mg Tab 15 Mg PO Q4HR PRN Multiple Vitamin 1 Tab 1 Tab PO DAILY Review of Systems General / Constitutional: No: Fever, Chills Eyes: No: Diploplia, Blurred Vision HENT: No: Headaches, Vertigo Cardiovascular: Positive: Palpitations, Irregular Rhythm, Tachycardia Respiratory: No: Cough, Shortness of Breath Gastrointestinal: Positive: Nausea, Vomiting, Diarrhea Genitourinary: No: Urgency, Frequency Musculoskeletal: No: Myalgias, Arthralgias Skin: No Rash, No Itching Neurologic: Positive: Weakness Psychiatric: No: Anxiety, Depression Endocrine: No: Heat Intolerance, Cold Intolerance Hematologic/Lymphatic: No: Easy Bruising Physical Exam Narrative GENERAL: Well-developed male SKIN: Focused skin assessment warm/dry. HEAD: Atraumatic. Normocephalic. EYES: Pupils equal and round. No scleral icterus. No injection or drainage. ENT: No nasal bleeding or discharge. Mucous membranes pink and moist. NECK: Trachea midline. No JVD. CARDIOVASCULAR: Rapid irregular rate and rhythm. No murmur appreciated. RESPIRATORY: No accessory muscle use. Clear to auscultation. Breath sounds equal bilaterally. GASTROINTESTINAL: Abdomen soft, non-tender, nondistended. Hepatic and splenic margins not palpable. MUSCULOSKELETAL: No obvious deformities. No clubbing. No cyanosis. No edema. NEUROLOGICAL: Awake and alert. No obvious cranial nerve deficits. Motor grossly within normal limits. Normal speech. PSYCHIATRIC: Appropriate mood and affect; insight and judgment normal. Data Data Last Documented VS Vital Signs Date Time Temp Pulse Resp B/P (MAP) Pulse Ox O2 Delivery O2 Flow Rate FiO2 08/10/17 12:04 114 18 95/76 (82) 99 Room Air 08/10/17 09:45 97.8 Orders Orders Electrocardiogram (08/10/17 10:19) Complete Blood Count With Diff (08/10/17 10:19) Comprehensive Metabolic Panel (08/10/17 10:19) Prothrombin Time / Inr (Pt) (08/10/17 10:19) Act Partial Throm Time (Ptt) (08/10/17 10:19) Urinalysis - C+S If Indicated (08/10/17 10:19) Magnesium (Mg) (08/10/17 10:19) Chest, Single Ap (08/10/17 10:19) Sodium Chlor 0.9% 1000 Ml Inj (Ns 1000 M (08/10/17 10:30) Enteric Path (Stool) (08/10/17 10:19) C Diff Toxin Pcr (08/10/17 10:19) Ondansetron Inj (Zofran Inj) (08/10/17 10:30) Diltiazem (Cardizem) (08/10/17 10:30) Sodium Chlor 0.9% 250 Ml Inj (Ns 250 Ml (08/10/17 11:30) Morphine Inj (Morphine Inj) (08/10/17 12:00) Labs Laboratory Tests Test 08/10/17 10:30 08/10/17 11:45 White Blood Count 7.2 TH/MM3 Red Blood Count 4.66 MIL/MM3 Hemoglobin 11.1 GM/DL Hematocrit 33.7 % Mean Corpuscular Volume 72.4 FL Mean Corpuscular Hemoglobin 23.9 PG Mean Corpuscular Hemoglobin Concent 33.0 % Red Cell Distribution Width 20.3 % Platelet Count 269 TH/MM3 Mean Platelet Volume 8.7 FL Neutrophils (%) (Auto) 53.0 % Lymphocytes (%) (Auto) 36.6 % Monocytes (%) (Auto) 7.6 % Eosinophils (%) (Auto) 1.7 % Basophils (%) (Auto) 1.1 % Neutrophils # (Auto) 3.9 TH/MM3 Lymphocytes # (Auto) 2.6 TH/MM3 Monocytes # (Auto) 0.5 TH/MM3 Eosinophils # (Auto) 0.1 TH/MM3 Basophils # (Auto) 0.1 TH/MM3 CBC Comment AUTO DIFF Differential Comment AUTO DIFF CONFIRMED Platelet Estimate NORMAL Platelet Morphology Comment NORMAL Ovalocytes 1+ Prothrombin Time 11.5 SEC Prothromb Time International Ratio 1.1 RATIO Activated Partial Thromboplast Time 27.3 SEC MDM Medical Decision Making Medical Screen Exam Complete: Yes Emergency Medical Condition: Yes Medical Record Reviewed: Yes Differential Diagnosis Differential includes gastroenteritis, rapid atrial fibrillation, Narrative Course Heart rate at this time is 150. Blood pressure slightly low. I am reluctant to give beta blockers. He has been given some IV fluids Diagnosis Primary Impression: Atrial fibrillation with RVR Additional Impression: Dehydration Gerry Price MD August 10, 2017 11:15
[2017-08-10] MEDS ORDERED: SODIUM CHLOR 0.9% 250 ML INJ 250 ML IV ONE (11:30)
[2017-08-10 11:33] LABS: OVALOCYTES 1+ (NORMAL)
[2017-08-10] MEDS ORDERED: MORPHINE SULFATE 8 MG/ML INJ IV PUSH ONE (12:00)
--- NOTE | 2017-08-10 12:43 | HHI.HP ---
[facility] No Primary Care Physician Admission Diagnosis Diagnoses: (1) Gastroenteritis Diagnosis: Principal (2) Atrial fibrillation with RVR Diagnosis: Principal Chief Complaint: Nausea, vomiting, diarrhea Travel History International Travel<30 Days: No Contact w/Intl Traveler <30 Da: No Traveled to Known Affected Are: No History of Present Illness Written by Edgardo Fairchild, acting as scribe for Dr. Tomas on 08/10/17 at 12: 43. 67-year-old male with known history of hypertension, atrial fibrillation, history of DVT, history of pulmonary emboli, chronic obstructive pulmonary disease, chronic pain who presented to the hospital because of nausea, vomiting , diarrhea. Patient states that he has been having symptoms for approximately 4 days. Last thing he ate was when he made himself some [employer] chicken and ever since then he has had nausea, vomiting and diarrhea. States that his stools are liquid at this time. He does have history of C. difficile, the last time he was positive was May 2017 he has undergone treatment until completion. Patient states that he got this morning took his home medications but had an episode of nausea vomiting and he thinks that he may have vomited up his Cardizem. Because he was not getting any better he came to emergency department for evaluation. Upon evaluation patient was found to have atrial fibrillation with RVR, medical signs of dehydration/gastroenteritis. Laboratory studies were performed which did not indicate any electrolyte abnormalities, there are no signs of any sepsis. The ER physician evaluated patient and considering that he is having difficulty with maintaining hydration and nutrition, heart rate was elevated he recommended the patient be observed in the hospital for further evaluation and management. Review of Systems Gastrointestinal: COMPLAINS OF: Diarrhea, Nausea, Vomiting Except as stated in HPI: all other systems reviewed are Neg Past Family Social History Past Medical History Atrial fibrillation Chronic obstructive pulmonary disease Chronic back pain with neuropathy Arterial insufficiency and peripheral arterial disease History of DVT History of pulmonary emboli Chronic microcytic anemia Posttraumatic stress disorder Eczema Hepatitis C History of left lung mass Past Surgical History Tonsillectomy Right ankle surgery 2 Hip bone graft ankle Reported Medications Reported Meds & Active Scripts Active Albuterol Neb (Albuterol Sulfate) 2.5 Mg/3 Ml Neb 2.5 Mg NEB Q4HR NEB PRN Floranex (Lactobacillus Acidophilus) 1 Gm Pkt 1 Gm PO QID 10 Days Diltiazem CD 24 HR 300 Mg Caper 300 Mg PO DAILY Eliquis (Apixaban) 5 Mg Tab 5 Mg PO BID Reported B12 (Cyanocobalamin) 1,000 Mcg Tab Klonopin (Clonazepam) 1 Mg Tab 1 Mg PO TID Vitamin C (Ascorbic Acid) 1,000 Mg Tablet.er 1,000 Mg PO DAILY Spiriva Handihaler (Tiotropium Inh) 18 Mcg Cap 2 Puff INH DAILY 1 capsule = 18 mcg Morphine IR (Morphine Sulfate) 15 Mg Tab 15 Mg PO Q4HR PRN Multiple Vitamin 1 Tab 1 Tab PO DAILY Allergies: Coded Allergies: codeine (Verified Allergy, Severe, TURN RED, SOB, HIVES, 08/10/17) ketoconazole (Verified Allergy, Intermediate, Rash, 08/10/17) ITCHING Family History Family history is reviewed is significant for mother's side of the family with Buerger's syndrome Social History Patient quit smoking the beginning of this year, prior to that he smoked a pack of cigarettes a day since he was 31 years old. Denies any alcohol or illicit drug Physical Exam Vital Signs Vital Signs Date Time Temp Pulse Resp B/P (MAP) Pulse Ox O2 Delivery O2 Flow Rate FiO2 08/10/17 12:04 114 18 95/76 (82) 99 Room Air 08/10/17 10:06 117 Room Air 08/10/17 09:45 97.8 93 16 106/61 (76) 99 Physical Exam GENERAL: Well-developed, well-nourished, in no acute distress. alert and orientated HEENT: Head is normocephalic without any lesions or masses noted. Facial features are symmetric. Eyes: Pupils equal round reactive to light. Extraocular muscles are intact. Conjunctivae were clear. Oropharyngeal: Pharynx without any erythema edema. Tongue is midline without deviation. Buccal mucosa is moist without any masses or lesions NECK: Supple without any masses. Trachea midline no deviation. No JVD, no bruits are appreciated CARDIAC: Irregular rhythm, irregular rate. S1/S2 are heard. No murmurs gallops or rubs. LUNGS: Clear to auscultation bilaterally. No wheeze, rhonchi or rales. No use of accessory muscles on inspiration or expiration. ABDOMEN: Soft, nontender. Nondistended. Bowel sounds heard in all 4 quadrants. No organomegaly or masses. Negative rebound, negative guarding EXTREMITIES: No edema, pulses are equal bilaterally. No cyanosis or clubbing NEUROLOGY: Mood and affect appear appropriate. Cranial nerves II through XII grossly intact. Muscle strength 5/5 in upper and lower extremities bilaterally. Deep tendon reflexes are 2+ in upper and lower extremities bilaterally. Laboratory Laboratory Tests Test 08/10/17 10:30 08/10/17 11:45 White Blood Count 7.2 Red Blood Count 4.66 Hemoglobin 11.1 Hematocrit 33.7 Mean Corpuscular Volume 72.4 Mean Corpuscular Hemoglobin 23.9 Mean Corpuscular Hemoglobin Concent 33.0 Red Cell Distribution Width 20.3 Platelet Count 269 Mean Platelet Volume 8.7 Neutrophils (%) (Auto) 53.0 Lymphocytes (%) (Auto) 36.6 Monocytes (%) (Auto) 7.6 Eosinophils (%) (Auto) 1.7 Basophils (%) (Auto) 1.1 Neutrophils # (Auto) 3.9 Lymphocytes # (Auto) 2.6 Monocytes # (Auto) 0.5 Eosinophils # (Auto) 0.1 Basophils # (Auto) 0.1 CBC Comment AUTO DIFF Differential Comment AUTO DIFF CONFIRMED Platelet Estimate NORMAL Platelet Morphology Comment NORMAL Ovalocytes 1+ Prothrombin Time 11.5 Prothromb Time International Ratio 1.1 Activated Partial Thromboplast Time 27.3 Result Diagram: 08/10/17 1030 Imaging Last Impressions Chest X-Ray 08/10/17 1019 Signed Impressions: CONCLUSION: 1. Parenchymal density left upper lobe is stable. 2. Minimal patchy density left lower lobe. Caprini VTE Risk Assessment Caprini VTE Risk Assessment: Mod/High Risk (score >= 2) Caprini Risk Assessment Model Point Value = 1 Point Value = 2 Point Value = 3 Point Value = 5 Age 41-60 Minor surgery BMI > 25 kg/m2 Swollen legs Varicose veins or History of unexplained or recurrent spontaneous Oral contraceptives or hormone replacement Sepsis (< 1 month) Serious lung disease, including pneumonia (< 1 month) Abnormal pulmonary function Acute myocardial infarction Congestive heart failure (< 1 month) History of inflammatory bowel disease Medical patient at bed rest Age 61-74 Arthroscopic surgery Major open surgery (> 45 min) Laparoscopic surgery (> 45 min) Malignancy Confined to bed (> 72 hours) Immobilizing plaster cast Central venous access Age >= 75 History of VTE Family history of VTE Factor V Leiden Prothrombin [id number] Lupus anticoagulant Anticardiolipin antibodies Elevated serum homocysteine Heparin-induced thrombocytopenia Other congenital or acquired thrombophilia Stroke (< 1 month) Elective arthroplasty Hip, pelvis, or leg fracture Acute spinal cord injury (< 1 month) Prophylaxis Regimen Total Risk Factor Score Risk Level Prophylaxis Regimen 0-1 Low Early ambulation 2 Moderate Order ONE of the following: *Sequential Compression Device (SCD) *Heparin 5000 units SQ BID 3-4 Higher Order ONE of the following medications: *Heparin 5000 units SQ TID *Enoxaparin/Lovenox 40 mg SQ daily (WT < 150 kg, CrCl > 30 mL/min) *Enoxaparin/Lovenox 30 mg SQ daily (WT < 150 kg, CrCl > 10-29 mL/min) *Enoxaparin/Lovenox 30 mg SQ BID (WT < 150 kg, CrCl > 30 mL/min) AND/OR *Sequential Compression Device (SCD) 5 or more Highest Order ONE of the following medications: *Heparin 5000 units SQ TID (Preferred with Epidurals) *Enoxaparin/Lovenox 40 mg SQ daily (WT < 150 kg, CrCl > 30 mL/min) *Enoxaparin/Lovenox 30 mg SQ daily (WT < 150 kg, CrCl > 10-29 mL/min) *Enoxaparin/Lovenox 30 mg SQ BID (WT < 150 kg, CrCl > 30 mL/min) AND *Sequential Compression Device (SCD) Assessment and Plan Problem List: (1) Gastroenteritis ICD Code: K52.9 - Noninfective gastroenteritis and colitis, unspecified Assessment and Plan 67 years old man with Gastroenteritis -Could be secondary to food poisoning versus viral gastroenteritis versus recurrent C. difficile infection -Continue IV fluids -Continue antiemetics -Advance diet as tolerated -Await stool for C. difficile culture Atrial fibrillation with RVR -Could be worsened secondary to dehydration, acute infection, possibly not digesting his medication this morning secondary to nausea vomiting -Continue telemetry -Continue home medications -Continue anticoagulation Chronic obstructive pulmonary disease -Continue O2 supplementation maintain O2 sats greater than 88% -Duo nebs as needed Chronic pain -Continue home medications DVT prevention -Continue Eliquis This note was transcribed by mamta Fairchild. I, Dr. Willie Tomas personally performed the history, physical exam, and medical decision making; and confirmed the accuracy of the information in the transcribed note. Authenticated by Dr. Willie Tomas on 08/10/17 at 12:43. Code Status Full code Discussed Condition With Patient, ED physician Edgardo Fairchild August 10, 2017 12:43 Willie Tomas MD August 10, 2017 12:47
[2017-08-10 12:51] LABS: CHLORIDE 105 MEQ/L (98-107); SODIUM (NA) 136 MEQ/L (136-145)
[2017-08-10 12:55] LABS: BICARBONATE 24.7 MEQ/L (21.0-32.0); BLOOD UREA NITROGEN 11 MG/DL (7-18); GLUCOSE,RANDOM 81 MG/DL (74-106)
[2017-08-10 12:58] LABS: ALT (GPT) 106 U/L (12-78); AST (GOT) 116 U/L (15-37); CREATININE 0.77 MG/DL (0.60-1.30); GLOMERULAR FILTRATION RATE 101 ML/MIN (>89)
[2017-08-10 12:59] LABS: TOTAL BILIRUBIN ADULT 0.2 MG/DL (0.2-1.0); TOTAL PROTEIN 6.4 GM/DL (6.4-8.2)
[2017-08-10 13:00] LABS: ALKALINE PHOSPHATASE 89 U/L (45-117)
[2017-08-10] MEDS ORDERED: TEMAZEPAM 15 MG CAP PO PRN (13:30)
[2017-08-10] MEDS ORDERED: MAGNESIUM HYDROXIDE SUSP 30 ML CUP PO PRN (13:30)
[2017-08-10] MEDS ORDERED: SODIUM CHLORIDE 0.9% FLUSH 10 ML FLUSH IV FLUSH PRN (13:30)
[2017-08-10] MEDS ORDERED: ONDANSETRON HCL 4 MG/2 ML VIAL IV PUSH PRN (13:30)
[2017-08-10] MEDS ORDERED: DOCUSATE SODIUM 100 MG CAP PO PRN (13:30)
[2017-08-10] MEDS ORDERED: RESP: ALBUTEROL 2.5 MG/IPRATROPIUM 0.5 MG NEB (PRN) NEB (13:30)
[2017-08-10] MEDS ORDERED: ACETAMINOPHEN 325 MG TAB PO PRN (13:30)
[2017-08-10] MEDS: SODIUM CHLOR 0.9% 1000 ML INJ 1,000 ML IV SCH ×2 (14:00→23:23)
[2017-08-10] MEDS: MORPHINE SULFATE 15 MG TAB PO PRN ×3 (14:21→23:21)
[2017-08-10] MEDS ORDERED: METO-309 PO (15:35)
[2017-08-10] MEDS ORDERED: RESP: IPRATROPIUM 0.5 MG/2.5 ML NEB NEB PRN (16:15)
[2017-08-10 17:50] LABS: BILIRUBIN, URINE NEG (NEG); BLOOD, URINE NEG (NEG); GLUCOSE,URINE NEG (NEG); KETONE, URINE NEG (NEG); NITRITE,URINE NEG (NEG); PH, URINE 5.5 (5.0-8.5); URINE COLOR YELLOW (YELLW/STRAW); URINE LEUKOCYTE ESTERASE NEG (NEG)
[2017-08-10] MEDS: clonazePAM 1 MG TAB PO SCH (18:03)
[2017-08-10] MEDS: LACTOBACILLUS ACIDOPHILUS 1 GM PACKET PO SCH ×2 (18:15→23:20)
[2017-08-10] MEDS: SODIUM CHLORIDE 0.9% FLUSH 10 ML FLUSH IV FLUSH SCH (21:41)
[2017-08-10] MEDS: APIXABAN 5 MG TABLET PO SCH (21:41)
[2017-08-11 01:52] VITALS: BP 106/62; PULSE 74; RESP 20; O2SAT 98
[2017-08-11] MEDS: MORPHINE SULFATE 15 MG TAB PO PRN ×3 (03:26→12:09)
[2017-08-11 06:04] LABS: AUTOMATED NEUTROPHIL # 2.2 TH/MM3 (1.8-7.7); BASOPHIL # 0.1 TH/MM3 (0-0.2); BASOPHIL % 1.9 % (0.0-2.0); EOSINOPHIL # 0.2 TH/MM3 (0-0.4); EOSINOPHIL % 2.3 % (0.0-4.0); HEMOGLOBIN 9.6 GM/DL (13.0-17.0); LYMPH % 53.8 % (9.0-44.0); LYMPHOCYTE # 3.6 TH/MM3 (1.0-4.8); MEAN CELL VOLUME 71.9 FL (80.0-100.0); MEAN CORPUSCULAR HEMOGLOBIN 22.3 PG (27.0-34.0); MEAN PLATELET VOLUME 8.8 FL (7.0-11.0); MONOCYTE # 0.6 TH/MM3 (0-0.9); PLATELET COUNT 249 TH/MM3 (150-450); RED BLOOD COUNT 4.31 MIL/MM3 (4.50-5.90); RED CELL DISTRIBUTION WIDTH 19.4 % (11.6-17.2); WHITE BLOOD COUNT 6.7 TH/MM3 (4.0-11.0)
[2017-08-11 06:16] LABS: CALCIUM 7.7 MG/DL (8.5-10.1)
[2017-08-11 06:17] LABS: BICARBONATE 24.6 MEQ/L (21.0-32.0)
[2017-08-11 06:20] LABS: CREATININE 0.76 MG/DL (0.60-1.30); OVALOCYTES 1+ (NORMAL)
[2017-08-11 07:01] VITALS: PULSE 67
[2017-08-11 07:35] VITALS: O2SAT 98
[2017-08-11] MEDS: clonazePAM 1 MG TAB PO SCH ×2 (07:36→12:10)
[2017-08-11] MEDS: SODIUM CHLORIDE 0.9% FLUSH 10 ML FLUSH IV FLUSH SCH (07:36)
[2017-08-11] MEDS: APIXABAN 5 MG TABLET PO SCH (07:36)
[2017-08-11 07:43] VITALS: BP 108/67; PULSE 74; RESP 19; TEMP 97.2; O2SAT 100
[2017-08-11] MEDS: LACTOBACILLUS ACIDOPHILUS 1 GM PACKET PO SCH (07:45)
[2017-08-11] MEDS: SODIUM CHLOR 0.9% 1000 ML INJ 1,000 ML IV SCH (07:46)
[2017-08-11] MEDS ORDERED: DILTIAZEM-CD 300 MG CAP ER PO SCH (09:00)
--- NOTE | 2017-08-11 09:20 | HHI.PR ---
Subjective Remarks Follow-up gastroenteritis August 11, 2017-patient seen and examined, denies any more episode of diarrhea since admission. No acute event overnight. Requesting his diet to be advanced. Objective Vitals Vital Signs Date Time Temp Pulse Resp B/P (MAP) Pulse Ox O2 Delivery O2 Flow Rate FiO2 08/11/17 07:43 97.2 74 19 108/67 (81) 100 08/11/17 07:35 98 08/11/17 07:01 67 08/11/17 01:52 74 20 106/62 (77) 98 08/10/17 23:18 97.3 71 20 103/75 (84) 96 08/10/17 21:39 100 08/10/17 21:00 84 08/10/17 20:10 98 21 08/10/17 20:00 97.1 77 20 103/76 (85) 89 08/10/17 16:03 99 21 08/10/17 16:00 97.4 88 17 114/78 (90) 100 08/10/17 14:01 97.1 91 16 111/70 (84) 100 08/10/17 13:30 08/10/17 13:08 85 18 110/89 (96) 99 Room Air 08/10/17 12:04 114 18 95/76 (82) 99 Room Air 08/10/17 10:06 117 Room Air 08/10/17 09:45 97.8 93 16 106/61 (76) 99 I/O 08/10/17 08/10/17 08/10/17 08/11/17 08/11/17 08/11/17 07:00 15:00 23:00 07:00 15:00 23:00 Intake Total 720 ml 720 ml 2560 ml 120 ml Output Total 420 ml 1900 ml Balance 720 ml 300 ml 660 ml 120 ml Intake Oral 720 ml 960 ml 120 ml IV Total 720 ml 1600 ml Output Urine Total 420 ml 1900 ml # Voids 6 2 # Bowel Movements 1 Result Diagram: 08/11/17 0455 08/11/17 0455 Imaging Last Impressions Chest X-Ray 08/10/17 1019 Signed Impressions: CONCLUSION: 1. Parenchymal density left upper lobe is stable. 2. Minimal patchy density left lower lobe. Objective Remarks GENERAL: NAD SKIN: Warm and dry. HEAD: Normocephalic. EYES: No scleral icterus. No injection or drainage. NECK: Supple, trachea midline. No JVD or lymphadenopathy. CARDIOVASCULAR: Regular rate and rhythm without murmurs, gallops, or rubs. RESPIRATORY: Breath sounds equal bilaterally. No accessory muscle use. GASTROINTESTINAL: Abdomen soft, non-tender, nondistended. MUSCULOSKELETAL: No cyanosis, or edema. BACK: Nontender without obvious deformity. No CVA tenderness. A/P Problem List: (1) Gastroenteritis ICD Code: K52.9 - Noninfective gastroenteritis and colitis, unspecified Assessment and Plan 67-year-old man with Gastroenteritis-resolved -Could be secondary to food poisoning versus viral gastroenteritis versus recurrent C. difficile infection -Continue IV fluids -Continue antiemetics -Advance diet as tolerated -Await stool for C. difficile culture Atrial fibrillation with RVR -Could be worsened secondary to dehydration, acute infection, possibly not digesting his medication this morning secondary to nausea vomiting -Continue telemetry -Continue home medications -Continue anticoagulation Chronic obstructive pulmonary disease -Continue O2 supplementation maintain O2 sats greater than 88% -Duo nebs as needed Chronic pain -Continue home medications DVT prevention -Continue Eliquis Discharge Planning Discharge patient to home Condition on discharge: Improved Regular Diet as tolerated Ad Shana activity Rx written:None Follow-up with primary care physician in 1 week Willie Tomas MD August 11, 2017 09:20
[2017-08-11 12:00] VITALS: BP 94/63; PULSE 84; RESP 19; TEMP 97.2; O2SAT 100
== END 2017-08-11 12:37 | disposition home or self-care (01) ==
LOC: PHED 09:40 → PHEDA 12:44 → PH3A 13:36
PROVIDERS: ADMIT Hospitalist; ATTEND Hospitalist
DX: K52.9 Noninfective gastroenteritis and colitis, unspecified (principal); I48.91 Unspecified atrial fibrillation; E86.0 Dehydration; R91.8 Other nonspecific abnormal finding of lung field; L30.9 Dermatitis, unspecified; I10 Essential (primary) hypertension; J44.9 Chronic obstructive pulmonary disease, unspecified; G62.9 Polyneuropathy, unspecified; B19.20 Unspecified viral hepatitis C without hepatic coma; M54.9 Dorsalgia, unspecified; G89.29 Other chronic pain; F41.9 Anxiety disorder, unspecified; F32.9 Major depressive disorder, single episode, unspecified; F43.10 Post-traumatic stress disorder, unspecified; Z79.01 Long term (current) use of anticoagulants; Z86.711 Personal history of pulmonary embolism; Z86.718 Personal history of other venous thrombosis and embolism; Z87.891 Personal history of nicotine dependence; Z79.899 Other long term (current) drug therapy
CPT/HCPCS: 71045; 80048; 80053; 81001; 83735; 85025; 85610; 85730; 93005; 94150; 96361; 96374; 96375; 96376; 99285; G0378; J2270; J2405; J7030; J7050

== ENCOUNTER 2017-08-13 10:12 | Emergency (ER) | payer MEDICARE, MEDICAID ==
[~2017-08-13] VITALS: Ht 177.8 cm; Wt 86.1 kg
[~2017-08-13 10:12] MED LIST changes: -CHOL4POW4 PO; +METO-309 PO; -PRED20 PO; -VANC125C3 PO
[2017-08-13 10:20] VITALS: BP 113/63; PULSE 120; RESP 22; TEMP 98.2; O2SAT 93
--- NOTE | 2017-08-13 10:21 | PD ---
HPI Chief Complaint: Palpitation Time Seen by Provider: 10:16 Travel History International Travel<30 days: No Contact w/Intl Traveler<30days: No Traveled to known affect area: No History of Present Illness HPI Patient comes in complaining of fast palpitations associated with chest pain, no alleviating or aggravating factors. Patient attempted to get in touch with Dr. Clay who is his lining printer, but was unable to so he presented to the emergency department. Onset of this particular episode was approximately 30 minutes prior to arrival. Allergy to codeine, ketoconazole Past medical history significant for borderline overactive thyroid disease, peripheral neuropathy, atrial fibrillation on Eliquis, hypertension, DVT, COPD emphysema, pancreatitis, anemia eczema and hepatitis C, also had C. difficile back in 2059 and in May 2017 [facility] Past Medical History Hx Anticoagulant Therapy: Yes (ELIQUIS) Arthritis: No Asthma: No Atrial Fibrillation: Yes Autoimmune Disease: No Blood Disorders: No Anxiety: Yes Depression: Yes Heart Rhythm Problems: Yes (a fib) Cancer: No Cardiovascular Problems: Yes High Cholesterol: No Chemotherapy: No Chest Pain: No Congestive Heart Failure: No COPD: Yes Cerebrovascular Accident: No Diabetes: No Diminished Hearing: No Deep Vein Thrombosis: Yes (RLE) Endocrine: Yes Gastrointestinal Disorders: Yes (pancreatitis) GERD: No Glaucoma: No Genitourinary: No Headaches: No Hepatitis: Yes (hep C) Hiatal Hernia: No Heparin Induced Thrombocytopen: No Hypertension: Yes Immune Disorder: No Implanted Vascular Access Dvce: Yes Kidney Stones: No Musculoskeletal: Yes (R ankle surgery) Neurologic: Yes Psychiatric: Yes Reproductive: No Respiratory: Yes (COPD, emphysema, pneumonia ) Immunizations Current: Yes Migraines: No Myocardial Infarction: No Pancreatitis: Yes Pneumonia: Yes Radiation Therapy: No Renal Failure: No Seizures: No Sickle Cell Disease: No Sleep Apnea: No Thyroid Disease: Yes (borerline overactive) Ulcer: No Past Surgical History Abdominal Surgery: No AICD: No Appendectomy: No Arteriovenous Shunt: No Body Medical Devices: screws/pins in R ankle, metal in right femor into iliac crest Cardiac Surgery: No Cholecystectomy: No Ear Surgery: No Endocrine Surgery: No Eye Surgery: Yes (cataract L eye surg) Genitourinary Surgery: No Gynecologic Surgery: No Hysterectomy: Yes (AFIB/ HBP) Insulin Pump: No Joint Replacement: No Neurologic Surgery: No Oral Surgery: No Pacemaker: No Thoracic Surgery: No Tonsillectomy: Yes Other Surgery: Yes (left eye ) Social History Alcohol Use: No Tobacco Use: No Substance Use: No Allergies-Medications (Allergen,Severity, Reaction): Coded Allergies: codeine (Verified Allergy, Severe, TURN RED, SOB, HIVES, 08/13/17) ketoconazole (Verified Allergy, Intermediate, Rash, 08/13/17) ITCHING Reported Meds & Prescriptions Reported Meds & Active Scripts Active Albuterol Neb (Albuterol Sulfate) 2.5 Mg/3 Ml Neb 2.5 Mg NEB Q4HR NEB PRN Floranex (Lactobacillus Acidophilus) 1 Gm Pkt 1 Gm PO QID 10 Days Diltiazem CD 24 HR 300 Mg Caper 300 Mg PO DAILY Eliquis (Apixaban) 5 Mg Tab 5 Mg PO BID Reported Lopressor (Metoprolol Tartrate) 50 Mg Tab 75 Mg PO BID B12 (Cyanocobalamin) 1,000 Mcg Tab Klonopin (Clonazepam) 1 Mg Tab 1 Mg PO TID Vitamin C (Ascorbic Acid) 1,000 Mg Tablet.er 1,000 Mg PO DAILY Spiriva Handihaler (Tiotropium Inh) 18 Mcg Cap 2 Puff INH DAILY 1 capsule = 18 mcg Morphine IR (Morphine Sulfate) 15 Mg Tab 15 Mg PO Q4HR PRN Multiple Vitamin 1 Tab 1 Tab PO DAILY Review of Systems General / Constitutional: No: Fever Eyes: No: Visual changes HENT: No: Headaches Cardiovascular: Positive: Chest Pain or Discomfort, Palpitations Respiratory: No: Shortness of Breath Gastrointestinal: No: Abdominal Pain Genitourinary: No: Dysuria Musculoskeletal: No: Pain Skin: No Rash Neurologic: No: Weakness Psychiatric: No: Depression Endocrine: No: Polydipsia Hematologic/Lymphatic: No: Easy Bruising Physical Exam Narrative GENERAL: SKIN: Warm and dry. HEAD: Atraumatic. Normocephalic. EYES: Pupils equal and round. No scleral icterus. No injection or drainage. ENT: No nasal bleeding or discharge. Mucous membranes pink and moist. NECK: Trachea midline. No JVD. CARDIOVASCULAR: Tachycardic rate and irregular rhythm. RESPIRATORY: No accessory muscle use. Clear to auscultation. Breath sounds equal bilaterally. GASTROINTESTINAL: Abdomen soft, non-tender, nondistended. Hepatic and splenic margins not palpable. MUSCULOSKELETAL: Extremities without clubbing, cyanosis, or edema. No obvious deformities. NEUROLOGICAL: Awake and alert. No obvious cranial nerve deficits. Motor grossly within normal limits. Five out of 5 muscle strength in the arms and legs. Normal speech. PSYCHIATRIC: Appropriate mood and affect; insight and judgment normal. Data Data Last Documented VS Vital Signs Date Time Temp Pulse Resp B/P (MAP) Pulse Ox O2 Delivery O2 Flow Rate FiO2 08/13/17 13:53 87 18 115/65 (82) 100 Nasal Cannula 2.00 08/13/17 10:20 98.2 Orders Orders Electrocardiogram (08/13/17 10:16) B-Type Natriuretic Peptide (08/13/17 10:16) Ckmb (Isoenzyme) Profile (08/13/17 10:16) Complete Blood Count With Diff (08/13/17 10:16) Comprehensive Metabolic Panel (08/13/17 10:16) Prothrombin Time / Inr (Pt) (08/13/17 10:16) Act Partial Throm Time (Ptt) (08/13/17 10:16) Troponin I (08/13/17 10:16) Lipase (08/13/17 10:16) Chest, Single Ap (08/13/17 10:16) Ecg Monitoring (08/13/17 10:16) Bilateral Bp Monitoring (08/13/17 10:16) Iv Access Insert/Monitor (08/13/17 10:16) Oximetry (08/13/17 10:16) Oxygen Administration (08/13/17 10:16) Sodium Chloride 0.9% Flush (Ns Flush) (08/13/17 10:30) Metoprolol Tartrate Inj (Lopressor Inj) (08/13/17 10:30) Lorazepam Inj (Ativan Inj) (08/13/17 10:30) Ct Pulmonary Angiogram (08/13/17 10:25) CKMB (08/13/17 11:10) CKMB% (08/13/17 11:10) Iohexol 350 Inj (Omnipaque 350 Inj) (08/13/17 13:17) Labs Laboratory Tests Test 08/13/17 11:10 White Blood Count 6.1 TH/MM3 Red Blood Count 4.16 MIL/MM3 Hemoglobin 9.9 GM/DL Hematocrit 30.1 % Mean Corpuscular Volume 72.4 FL Mean Corpuscular Hemoglobin 23.8 PG Mean Corpuscular Hemoglobin Concent 33.0 % Red Cell Distribution Width 20.0 % Platelet Count 265 TH/MM3 Mean Platelet Volume 8.1 FL Neutrophils (%) (Auto) 52.6 % Lymphocytes (%) (Auto) 35.3 % Monocytes (%) (Auto) 9.1 % Eosinophils (%) (Auto) 1.7 % Basophils (%) (Auto) 1.3 % Neutrophils # (Auto) 3.1 TH/MM3 Lymphocytes # (Auto) 2.2 TH/MM3 Monocytes # (Auto) 0.6 TH/MM3 Eosinophils # (Auto) 0.1 TH/MM3 Basophils # (Auto) 0.1 TH/MM3 CBC Comment AUTO DIFF Differential Comment AUTO DIFF CONFIRMED Target Cells 1+ Ovalocytes 1+ Prothrombin Time 11.4 SEC Prothromb Time International Ratio 1.1 RATIO Activated Partial Thromboplast Time 27.4 SEC Blood Urea Nitrogen 6 MG/DL Creatinine 0.87 MG/DL Random Glucose 70 MG/DL Total Protein 7.2 GM/DL Albumin 3.5 GM/DL Calcium Level 8.3 MG/DL Alkaline Phosphatase 101 U/L Aspartate Amino Transf (AST/SGOT) 54 U/L Alanine Aminotransferase (ALT/SGPT) 66 U/L Total Bilirubin 0.3 MG/DL Sodium Level 138 MEQ/L Potassium Level 4.0 MEQ/L Chloride Level 105 MEQ/L Carbon Dioxide Level 23.1 MEQ/L Anion Gap 10 MEQ/L Estimat Glomerular Filtration Rate 88 ML/MIN Total Creatine Kinase 110 U/L Creatine Kinase MB 1.4 NG/ML Troponin I LESS THAN 0.02 NG/ML B-Type Natriuretic Peptide 233 PG/ML Lipase 109 U/L [facility] Medical Decision Making Medical Screen Exam Complete: Yes Emergency Medical Condition: Yes Medical Record Reviewed: Yes Interpretation(s) EKG shows atrial fibrillation rhythm, rate around 120, some nonspecific ST-T wave changes. Differential Diagnosis Symptomatic A. fib with RVR versus stress reaction/anxiety versus pancreatitis versus STEMI versus pneumonia versus pneumothorax Narrative Course Coagulation profile is within normal limits No evidence of any leukocytosis, mild anemia of 10/30, normal platelet count no left shift Electrolytes are all within normal limits, normal kidney pancreas and liver function. First set of cardiac enzymes negative Beta natruretic peptide is 233 which is only mildly elevated Chest x-ray read by radiologist as no evidence of pneumonia, chronic scarring of the left lung Most current repeat heart rate is in 80s still in atrial fibrillation, with blood pressure systolic in the 120s CT chest shows advanced COPD with scarring. And a small chronic pulmonary embolus found in the left lower lobe Diagnosis Primary Impression: Palpitations due to A. fib with RVR status post resolved Patient Instructions: A-fib (Atrial Fibrillation) (ED), General Instructions Additional Instructions: Please continue to make sure you did not miss any doses of your Eliquis, blood thinner, because of your atrial fibrillation and more importantly because your body is in the process of slowly resolving a blood clot of your lung Disposition: 01 DISCHARGE HOME Condition: Stable Todd Rivera MD August 13, 2017 10:21
[2017-08-13] MEDS ORDERED: SODIUM CHLORIDE 0.9% FLUSH 10 ML FLUSH IVF PRN (10:30)
[2017-08-13] MEDS ORDERED: LORazepam 2 MG/ML VIAL IV PUSH ONE (10:30)
[2017-08-13 10:34] VITALS: RESP 18; O2SAT 100
[2017-08-13 11:00] VITALS: BP 105/68; PULSE 93; RESP 16; O2SAT 100
[2017-08-13] MEDS: METOPROLOL TARTRATE 5 MG/5 ML VIAL IVS SCH ×3 (11:00→11:44)
--- NOTE | 2017-08-13 11:11 | RADRPT ---
EXAM DATE: 08/13/2017 10:43 AM EDT AGE/SEX: 67 years / Male INDICATIONS: Chest pain, short of breath. CLINICAL DATA: This is the patient's initial encounter. Patient reports that signs and symptoms have been present for 1 day and indicates a pain score of 8/10. MEDICAL/SURGICAL HISTORY: Deep venous thrombosis. Hepatitis C. hypertension, [employer], CHF, emphyse ma, Afib None. COMPARISON: [facility], CHEST PA & LAT, 05/16/2017. . FINDINGS: 2 AP erect views of the chest demonstrates the lungs to be symmetrically aerated without evidence of mass, new confluence infiltrate or effusion. Stable scarring is again noted in the left lung apex. T here is milder scarring in the left lung base. Atherosclerotic changes are present in the aorta. The cardiomediastinal contours are unremarkable. Osseous structures are intact. CONCLUSION: 1. chronic scarring at the left lung. 2. No evidence of pneumonia. Electronically signed by: James Pugh MD 08/13/2017 11:09 AM EDT
[2017-08-13 11:15] LABS: AUTOMATED NEUTROPHIL # 3.1 TH/MM3 (1.8-7.7); BASOPHIL # 0.1 TH/MM3 (0-0.2); BASOPHIL % 1.3 % (0.0-2.0); EOSINOPHIL # 0.1 TH/MM3 (0-0.4); EOSINOPHIL % 1.7 % (0.0-4.0); HEMATOCRIT 30.1 % (39.0-51.0); HEMOGLOBIN 9.9 GM/DL (13.0-17.0); LYMPH % 35.3 % (9.0-44.0); LYMPHOCYTE # 2.2 TH/MM3 (1.0-4.8); MEAN CELL VOLUME 72.4 FL (80.0-100.0); MEAN CORPUSCULAR HEMOGLOBIN 23.8 PG (27.0-34.0); MEAN PLATELET VOLUME 8.1 FL (7.0-11.0); MONO % 9.1 % (0.0-8.0); MONOCYTE # 0.6 TH/MM3 (0-0.9); NEUT % 52.6 % (16.0-70.0); PLATELET COUNT 265 TH/MM3 (150-450); RED BLOOD COUNT 4.16 MIL/MM3 (4.50-5.90); WHITE BLOOD COUNT 6.1 TH/MM3 (4.0-11.0)
[2017-08-13 11:23] LABS: CHLORIDE 105 MEQ/L (98-107); SODIUM (NA) 138 MEQ/L (136-145)
[2017-08-13 11:27] LABS: CALCIUM 8.3 MG/DL (8.5-10.1)
[2017-08-13 11:28] LABS: ALBUMIN 3.5 GM/DL (3.4-5.0); BICARBONATE 23.1 MEQ/L (21.0-32.0); BLOOD UREA NITROGEN 6 MG/DL (7-18); GLUCOSE,RANDOM 70 MG/DL (74-106)
[2017-08-13 11:29] VITALS: BP 110/67; PULSE 87; RESP 18; O2SAT 100
[2017-08-13 11:30] LABS: ALT (GPT) 66 U/L (12-78)
[2017-08-13 11:31] LABS: AST (GOT) 54 U/L (15-37); CREATININE 0.87 MG/DL (0.60-1.30); GLOMERULAR FILTRATION RATE 88 ML/MIN (>89)
[2017-08-13 11:32] LABS: TOTAL PROTEIN 7.2 GM/DL (6.4-8.2)
[2017-08-13 11:33] LABS: ALKALINE PHOSPHATASE 101 U/L (45-117)
[2017-08-13 11:34] LABS: TOTAL BILIRUBIN ADULT 0.3 MG/DL (0.2-1.0)
[2017-08-13 11:36] LABS: TROPONIN I LESS THAN 0.02 NG/ML (0.02-0.05)
[2017-08-13 11:39] LABS: INTERNATIONAL NORMALIZED RATIO 1.1 RATIO; PROTHROMBIN TIME - PATIENT 11.4 SEC (9.8-11.6)
[2017-08-13 12:18] LABS: OVALOCYTES 1+ (NORMAL); TARGET CELLS 1+ (NORMAL)
[2017-08-13] MEDS ORDERED: IOHEXOL 350 MG/ML 10 ML VIAL (for RAD DIAG) IVCONTRAST ONE (13:17)
--- NOTE | 2017-08-13 13:52 | RADRPT ---
EXAM DATE: 08/13/2017 1:18 PM EDT AGE/SEX: 67 years / Male INDICATIONS: Chest pain. CLINICAL DATA: This is the patient's initial encounter. Patient reports that signs and symptoms have been present for 2 days and indicates a pain score of 7/10. MEDICAL/SURGICAL HISTORY: Cardiovascular disease. Chronic obstructive pulmonary disease. Hepatiti s C. Pancreatitis. None. RADIATION DOSE: 7.71 CTDI (mGy) COMPARISON: [facility] – [place], CT PULMONARY ANGIOGRAM, 07/09/2015. . TECHNIQUE: Volumetric scanning was performed using a multi-row detector CT scanner during bolus infu nolvia of 75 ml Omnipaque 350 (iohexol) nonionic water-soluble contrast as a single exam dose. The william a was post processed with a variety of visualization algorithms including full volume maximum intensi ty projection and sliding thin slab reformation. Using automated exposure control and adjustment of the mA and/or kV according to patient size, radiation dose was kept as low as reasonably achievable t o obtain optimal diagnostic quality images. FINDINGS: The examination is of excellent diagnostic quality. The exam demonstrates an isolated subsegmental fi lling defect in a second order branch to the left lower lobe. I do have a previous exam dated 07/09/19 16. There was a similar area present at this time. This runs very close to the pulmonic vein is possi ble this represents volume averaging. I cannot definitively exclude a tiny isolated area of pulmonary embolus but again this area is similar to a previous back in 07/09/2015. No large or central embolic disease is seen. Imaging through the pulmonary parenchyma demonstrates advanced COPD changes. There is a sizable area of scarring evident in the anterior aspect of the left upper lobe. This is stable compared to the pre vious examination as well. There is no significant hilar or mediastinal adenopathy identified. The heart is at the upper limits of normal in size. There is atherosclerotic plaquing in the coronary arteries. The visualized bony structures are grossly intact. CONCLUSION: 1. There is a small filling defect in a second order pulmonary branch in the left lower lobe. This a john is compared back to a previous of 07/09/2015 and appears similar. This could represent a small chr onic PE however, It is possible this represents volume averaging with the pulmonary vein as it is imm ediately adjacent to this. There is no large or central embolic disease identified. 2. Advanced COPD with areas of scarring most notably in the left upper lobe. The appearance of the p arenchyma similar to previous. Electronically signed by: Regis Moreno MD 08/13/2017 1:50 PM EDT
[2017-08-13 13:53] VITALS: BP 115/65; PULSE 87; RESP 18; O2SAT 100
--- NOTE | 2017-08-13 15:00 | EKG ---
Date Performed: 08/13/2017 Time Performed: 10:15:39 PTAGE: 67 years EKG: ATRIAL FIBRILLATION WITH RAPID VENTRICULAR RESPONSE LOW QRS VOLTAGE IN EXTREMITY LEADS MINI MAL ST DEPRESSION ABNORMAL RHYTHM ECG INTERPRETATION BASED ON A DEFAULT AGE OF 40 YEARS Since the PREVIOUS TRACING , no significant change noted PREVIOUS TRACIN08/10/2017 10.16 DOCTOR: Jacky Howe Interpretating Date/Time 08/13/2017 14:58:27
== END 2017-08-13 14:38 | disposition home or self-care (01) ==
LOC: PHED 10:12
DX: I48.91 Unspecified atrial fibrillation (principal); I26.99 Other pulmonary embolism without acute cor pulmonale; R94.31 Abnormal electrocardiogram [ECG] [EKG]; I10 Essential (primary) hypertension; F32.9 Major depressive disorder, single episode, unspecified; J43.9 Emphysema, unspecified; Z86.718 Personal history of other venous thrombosis and embolism; Z79.01 Long term (current) use of anticoagulants; F41.9 Anxiety disorder, unspecified
CPT/HCPCS: 71045; 71275; 80053; 82550; 82552; 83690; 83880; 84484; 85025; 85610; 85730; 93005; 96374; 96375; 96376; 99285; J2060; Q9967

== ENCOUNTER 2017-08-14 12:24 | Observation (INO) | payer MEDICARE, MEDICAID ==
[~2017-08-14] VITALS: Ht 172.7 cm; Wt 62.0 kg
[2017-08-14 12:40] VITALS: BP 133/85; PULSE 112; RESP 20; TEMP 98.4; O2SAT 100
[2017-08-14] MEDS ORDERED: LABETALOL HCL 100 MG/20 ML VIAL IV PUSH ONE (13:15)
[2017-08-14] MEDS ORDERED: methylPREDNISolone SOD SUCC 125 MG/2 ML VIAL IV PUSH ONE (13:15)
[2017-08-14] MEDS ORDERED: RESP: ALBUTEROL 2.5 MG/3 ML NEB (SCH) INH (13:15)
[2017-08-14] MEDS ORDERED: LORazepam 2 MG/ML VIAL IV PUSH ONE (13:15)
[2017-08-14] MEDS ORDERED: RESP: ALBUTEROL 2.5 MG/IPRATROPIUM 0.5 MG NEB (SCH) INH ONE (13:15)
--- NOTE | 2017-08-14 13:48 | RADRPT ---
EXAM DATE: 08/14/2017 1:41 PM EDT AGE/SEX: 67 years / Male INDICATIONS: Blurry vision in left eye. Weakness. CLINICAL DATA: This is the patient's initial encounter. Patient reports that signs and symptoms have been present for 1 day and indicates a pain score of 0/10. MEDICAL/SURGICAL HISTORY: Cardiovascular disease. Hepatitis C. Hypertension. Pancreatitis. Neuro mick. Thyroid disease. A-fib. None. RADIATION DOSE: 38.64 CTDI (mGy) COMPARISON: [facility], CT BRAIN W/O CONTRAST, 10/11/2016. . TECHNIQUE: CT of the head without contrast. Using automated exposure control and adjustment of the mA and/or kV according to patient size, radiation dose was kept as low as reasonably achievable to ob tain optimal diagnostic quality images. FINDINGS: Cerebrum: The ventricles are normal for age. No evidence of midline shift, mass lesion, hemorrhage or acute infarction. No extraaxial fluid collections are seen. Posterior Fossa: The cerebellum and brainstem are intact. The 4th ventricle is midline. The cerebe llopontine angle is unremarkable. Extracranial: The visualized portion of the orbits is intact. Skull: The calvaria is intact. No evidence of skull fracture. CONCLUSION: 1. Negative noncontrast head CT Electronically signed by: James Pugh MD 08/14/2017 1:46 PM EDT
--- NOTE | 2017-08-14 13:54 | RADRPT ---
EXAM DATE: 08/14/2017 1:32 PM EDT AGE/SEX: 67 years / Male INDICATIONS: Chest pain. CLINICAL DATA: This is the patient's initial encounter. Patient reports that signs and symptoms have been present for 1 day and indicates a pain score of 8/10. MEDICAL/SURGICAL HISTORY: . COPD, CHF, A-fib None. COMPARISON: [facility], CHEST SINGLE AP, 01/30/2017. . FINDINGS: The examination demonstrates a masslike area parenchymal opacification in the left upper lobe. This i s unchanged compared to previous dated 01/30/2017. It has previously been assessed by CT imaging. The remainder the parenchyma demonstrates COPD changes and chronic interstitial changes. There has be en some improvement in the right perihilar region when compared to the prior exam. The visualized bony structures are grossly intact. CONCLUSION: Mass like density in the left lung apex measuring 2.9 x 4.7 cm stable compared to previous exam. The stability would suggest this may be scarring however, this should be followed to ensure stability. Chronic interstitial changes and COPD. Electronically signed by: Regis Moreno MD 08/14/2017 1:53 PM EDT
[2017-08-14 14:00] VITALS: BP 128/78; PULSE 64; RESP 20; O2SAT 100
[2017-08-14 14:28] LABS: AUTOMATED NEUTROPHIL # 3.5 TH/MM3 (1.8-7.7); BASOPHIL # 0.1 TH/MM3 (0-0.2); BASOPHIL % 1.1 % (0.0-2.0); EOSINOPHIL % 0.4 % (0.0-4.0); HEMATOCRIT 29.9 % (39.0-51.0); HEMOGLOBIN 9.5 GM/DL (13.0-17.0); LYMPH % 37.6 % (9.0-44.0); LYMPHOCYTE # 2.7 TH/MM3 (1.0-4.8); MEAN CELL VOLUME 71.5 FL (80.0-100.0); MEAN CORPUSCULAR HEMOGLOBIN 22.8 PG (27.0-34.0); MEAN CORPUSCULAR HGB CONC 31.9 % (32.0-36.0); MEAN PLATELET VOLUME 8.2 FL (7.0-11.0); MONO % 11.5 % (0.0-8.0); MONOCYTE # 0.8 TH/MM3 (0-0.9); NEUT % 49.4 % (16.0-70.0); PLATELET COUNT 292 TH/MM3 (150-450); RED BLOOD COUNT 4.19 MIL/MM3 (4.50-5.90); RED CELL DISTRIBUTION WIDTH 20.4 % (11.6-17.2); WHITE BLOOD COUNT 7.1 TH/MM3 (4.0-11.0)
[2017-08-14 14:56] LABS: ALBUMIN 3.2 GM/DL (3.4-5.0); ALT (GPT) 56 U/L (12-78); AST (GOT) 44 U/L (15-37); BLOOD UREA NITROGEN 8 MG/DL (7-18); CALCIUM 8.2 MG/DL (8.5-10.1); CHLORIDE 101 MEQ/L (98-107); CREATININE 0.76 MG/DL (0.60-1.30); GLOMERULAR FILTRATION RATE 103 ML/MIN (>89); GLUCOSE,RANDOM 87 MG/DL (74-106); SODIUM (NA) 136 MEQ/L (136-145)
[2017-08-14 15:00] LABS: ALKALINE PHOSPHATASE 91 U/L (45-117); TOTAL BILIRUBIN ADULT 0.3 MG/DL (0.2-1.0); TOTAL PROTEIN 6.6 GM/DL (6.4-8.2); TROPONIN I LESS THAN 0.02 NG/ML (0.02-0.05)
--- NOTE | 2017-08-14 15:06 | PD ---
HPI Chief Complaint: General Weakness Time Seen by Provider: 13:02 Travel History International Travel<30 days: No Contact w/Intl Traveler<30days: No Traveled to known affect area: No History of Present Illness HPI This is a 67-year-old gentleman with history of atrial fibrillation,, PTSD, COPD , CHF, who presents here today with complaints of shortness of breath and not feeling well. Patient also reports that he feels as though he is not able to think right. This is the third visit in 4 days for this patient. Patient was seen yesterday at [place] and was diagnosed with A. fib with RVR. He was also seen 2 days prior to that for similar symptoms. The patient has a heart rate in the 140s. He reports taking his medications. Patient also has history of chronic pain. He takes oral morphine and Percocets for this. The patient denies any chest pressure. He reports that he has been using his Spiriva however this is not seeming to help. There are no other complaints at the time of my examination. PFSH Past Medical History Hx Anticoagulant Therapy: Yes (ELIQUIS) Arthritis: No Asthma: No Atrial Fibrillation: Yes Autoimmune Disease: No Blood Disorders: No Anxiety: Yes Depression: Yes Heart Rhythm Problems: Yes (a fib) Cancer: No Cardiovascular Problems: Yes High Cholesterol: No Chemotherapy: No Chest Pain: No Congestive Heart Failure: No COPD: Yes Cerebrovascular Accident: No Diabetes: No Diminished Hearing: No Deep Vein Thrombosis: Yes (RLE) Endocrine: Yes Gastrointestinal Disorders: Yes (pancreatitis) GERD: No Glaucoma: No Genitourinary: No Headaches: No Hepatitis: Yes (hep C) Hiatal Hernia: No Heparin Induced Thrombocytopen: No Hypertension: Yes Immune Disorder: No Implanted Vascular Access Dvce: Yes Kidney Stones: No Musculoskeletal: Yes (R ankle surgery) Neurologic: Yes Psychiatric: Yes Reproductive: No Respiratory: Yes (COPD, emphysema, pneumonia ) Immunizations Current: Yes Migraines: No Myocardial Infarction: No Pancreatitis: Yes Pneumonia: Yes Radiation Therapy: No Renal Failure: No Seizures: No Sickle Cell Disease: No Sleep Apnea: No Thyroid Disease: Yes (borerline overactive) Ulcer: No ?: Not Past Surgical History Abdominal Surgery: No AICD: No Appendectomy: No Arteriovenous Shunt: No Body Medical Devices: screws/pins in R ankle, metal in right femor into iliac crest Cardiac Surgery: No Cholecystectomy: No Ear Surgery: No Endocrine Surgery: No Eye Surgery: Yes (cataract L eye surg) Genitourinary Surgery: No Gynecologic Surgery: No Hysterectomy: Yes (AFIB/ HBP) Insulin Pump: No Joint Replacement: No Neurologic Surgery: No Oral Surgery: No Pacemaker: No Thoracic Surgery: No Tonsillectomy: Yes Other Surgery: Yes (left eye ) Social History Alcohol Use: No Tobacco Use: No Substance Use: No Allergies-Medications (Allergen,Severity, Reaction): Coded Allergies: codeine (Verified Allergy, Severe, TURN RED, SOB, HIVES, 08/14/17) ketoconazole (Verified Allergy, Intermediate, Rash, 08/14/17) ITCHING Reported Meds & Prescriptions Reported Meds & Active Scripts Active Albuterol Neb (Albuterol Sulfate) 2.5 Mg/3 Ml Neb 2.5 Mg NEB Q4HR NEB PRN Floranex (Lactobacillus Acidophilus) 1 Gm Pkt 1 Gm PO QID 10 Days Eliquis (Apixaban) 5 Mg Tab 5 Mg PO BID Reported B12 (Cyanocobalamin) 1,000 Mcg Tab Klonopin (Clonazepam) 1 Mg Tab 1 Mg PO TID Vitamin C (Ascorbic Acid) 1,000 Mg Tablet.er 1,000 Mg PO DAILY Spiriva Handihaler (Tiotropium Inh) 18 Mcg Cap 2 Puff INH DAILY 1 capsule = 18 mcg Morphine IR (Morphine Sulfate) 15 Mg Tab 15 Mg PO Q4HR PRN Multiple Vitamin 1 Tab 1 Tab PO DAILY Review of Systems Except as stated in HPI: all other systems reviewed are Neg General / Constitutional: No: Fever, Chills HENT: Positive: Lightheadedness, No: Headaches, Neck Pain Cardiovascular: Positive: Palpitations, Irregular Rhythm, Tachycardia, No: Chest Pain or Discomfort Respiratory: Positive: Shortness of Breath, No: Cough Gastrointestinal: No: Nausea, Vomiting, Abdominal Pain Genitourinary: No: Frequency, Dysuria Musculoskeletal: Positive: Weakness, Pain (Chronic right lower extremity/ankle pain) Skin: No Rash, No Lesions Neurologic: Positive: Change in Mentation (Patient states he feels confused at time), No: Headache, Sensory Disturbance Physical Exam Narrative GENERAL: Well-developed well-nourished male in mild respiratory distress. Patient appears very anxious. SKIN: Focused skin assessment warm/dry. HEAD: Atraumatic. Normocephalic. EYES: Pupils equal and round. No scleral icterus. No injection or drainage. ENT: No nasal bleeding or discharge. Mucous membranes pink and moist. NECK: Trachea midline. Supple. CARDIOVASCULAR: Irregularly irregular with a rate in the 130s. No murmurs. RESPIRATORY: No accessory muscle use. Clear to auscultation. Breath sounds equal bilaterally. GASTROINTESTINAL: Abdomen soft, non-tender, nondistended. Hepatic and splenic margins not palpable. MUSCULOSKELETAL: No obvious deformities. No clubbing. No cyanosis. No edema. NEUROLOGICAL: Awake and alert. Tearful. No obvious cranial nerve deficits. Motor grossly within normal limits. Normal speech. Data Data Last Documented VS Orders Orders Electrocardiogram (08/14/17 13:03) Complete Blood Count With Diff (08/14/17 13:03) Comprehensive Metabolic Panel (08/14/17 13:03) Ckmb (Isoenzyme) Profile (08/14/17 13:03) Troponin I (08/14/17 13:03) Chest, Single Ap (08/14/17 13:03) Ct Brain W/O Iv Contrast(Rout) (08/14/17 13:03) Iv Access Insert/Monitor (08/14/17 13:03) Ecg Monitoring (08/14/17 13:03) Oximetry (08/14/17 13:03) Labetalol Inj (Trandate Inj) (08/14/17 13:15) Methylprednisolone So Succ Inj (Solumedr (08/14/17 13:15) Lorazepam Inj (Ativan Inj) (08/14/17 13:15) CKMB (08/14/17 14:00) CKMB% (08/14/17 14:00) Admit Order (Ed Use Only) (08/14/17 15:51) Place In Observation (08/14/17 ) Vital Signs (Adult) Q4H (08/14/17 15:53) Activity Oob Ad Shana (08/14/17 15:53) Chess Instructor / Telemetry .CONTINUOUS (08/14/17 15:53) Intake + Output JOHAN.QSHIFT (08/14/17 15:53) Diet Heart Healthy (08/14/17 Dinner) Sodium Chloride 0.9% Flush (Ns Flush) (08/14/17 16:00) Sodium Chloride 0.9% Flush (Ns Flush) (08/14/17 21:00) Metoprolol Tartrate (Lopressor) (08/14/17 21:00) Scd Bilateral/Knee High JOHAN.BID (08/14/17 15:53) ^ Medication Reconciliation (08/14/17 15:54) Consult Psychiatry (08/14/17 ) Labs Laboratory Tests Test 08/14/17 14:00 White Blood Count 7.1 TH/MM3 Red Blood Count 4.19 MIL/MM3 Hemoglobin 9.5 GM/DL Hematocrit 29.9 % Mean Corpuscular Volume 71.5 FL Mean Corpuscular Hemoglobin 22.8 PG Mean Corpuscular Hemoglobin Concent 31.9 % Red Cell Distribution Width 20.4 % Platelet Count 292 TH/MM3 Mean Platelet Volume 8.2 FL Neutrophils (%) (Auto) 49.4 % Lymphocytes (%) (Auto) 37.6 % Monocytes (%) (Auto) 11.5 % Eosinophils (%) (Auto) 0.4 % Basophils (%) (Auto) 1.1 % Neutrophils # (Auto) 3.5 TH/MM3 Lymphocytes # (Auto) 2.7 TH/MM3 Monocytes # (Auto) 0.8 TH/MM3 Eosinophils # (Auto) 0.0 TH/MM3 Basophils # (Auto) 0.1 TH/MM3 CBC Comment DIFF FINAL Differential Comment Blood Urea Nitrogen 8 MG/DL Creatinine 0.76 MG/DL Random Glucose 87 MG/DL Total Protein 6.6 GM/DL Albumin 3.2 GM/DL Calcium Level 8.2 MG/DL Alkaline Phosphatase 91 U/L Aspartate Amino Transf (AST/SGOT) 44 U/L Alanine Aminotransferase (ALT/SGPT) 56 U/L Total Bilirubin 0.3 MG/DL Sodium Level 136 MEQ/L Potassium Level 4.2 MEQ/L Chloride Level 101 MEQ/L Carbon Dioxide Level 24.0 MEQ/L Anion Gap 11 MEQ/L Estimat Glomerular Filtration Rate 103 ML/MIN Total Creatine Kinase 179 U/L Creatine Kinase MB 1.5 NG/ML Troponin I LESS THAN 0.02 NG/ML MDM Medical Decision Making Medical Screen Exam Complete: Yes Emergency Medical Condition: Yes Differential Diagnosis A. fib with RVR versus metabolic derangement versus CHF versus COPD exacerbation versus anxiety. Narrative Course 67-year-old gentleman presents today with complaints of tachycardia. Patient is noted to have A. fib with RVR. Patient will be admitted for rate control. Case was discussed with the admitting physician. They are agreeable to the plan. Patient will be placed under observation. Diagnosis Primary Impression: Atrial fibrillation with rapid ventricular response Additional Impression: Acute exacerbation of chronic obstructive pulmonary disease (COPD) Admitting Information Admitting Physician Requests: Observation Scripts Ferrous Sulfate (Ferosul) 325 Mg (65 Mg Iron) Tablet 325 MG PO BID@12,17 for Build Red Blood Cells for 30 Days, #60 TAB Prov: Veronica Cornejo PA-C 08/17/17 Metoprolol Tartrate (Metoprolol Tartrate) 25 Mg Tab 25 MG PO BID for Regulate Heart Beat for 30 Days, #60 TAB Prov: Veronica Cornejo PA-C 08/17/17 Diltiazem CD 24 HR (Diltiazem CD 24 HR) 240 Mg Caper 240 MG PO DAILY for Regulate Heart Beat for 30 Days, #30 CAP Prov: Veronica Cornejo PA-C 08/17/17 Riky Lara MD Aug 14, 2017 15:06
[2017-08-14] MEDS ORDERED: SODIUM CHLORIDE 0.9% FLUSH 10 ML FLUSH IV FLUSH PRN (16:00)
[2017-08-14 16:21] VITALS: BP 124/64
[2017-08-14 16:24] VITALS: BP 113/64; PULSE 70; RESP 20; TEMP 98.4; O2SAT 99
[2017-08-14 16:51] VITALS: PULSE 74
--- NOTE | 2017-08-14 17:34 | HHI.HP ---
[facility] Service [facility] ([place], [place])ists Primary Care Physician Chance Tarango MD Admission Diagnosis A fib with rvr, dsypnea, PTSD, mild confusion. Diagnoses: (1) Left-sided weakness (2) Transient visual loss, left eye (3) Chest pain (4) PTSD (post-traumatic stress disorder) (5) Atrial fibrillation with rapid ventricular response Chief Complaint: Not feeling well, SOB, chest pain , left sided weakness. Travel History International Travel<30 Days: No Contact w/Intl Traveler <30 Da: No Traveled to Known Affected Are: No History of Present Illness Written by Jaime Archuleta, acting as scribe for Dr. Castaneda on 08/14/17 at 17:31. 67-year-old with PMH of a. fib anticoagulated on Eliquis, DVT, PE, CHF, COPD, chronic back of the right ankle, neuropathy, arterial/peripheral artery insufficiency, and PTSD who presents to the ER with complaints of SOB and not feeling well. Patient was most recently seen in [place] [facility] and treated for a.fib with RVR yesterday. He states yesterday he was in the ED because he felt he had a fast heart rate and he knew he was in fast a. fib rate, he was also experiencing SOB. Today he complains of feeling lousy with left sided weakness , transient left eye vision loss, and not feeling well. He does report having transient vision loss in the past. Recently he feels like his left side is more weak, has been very weak for the past several weeks states it is now worse. He has also noticed he has been dropping objects with left hand for the past day or two, he has also had trouble grasping objects. He also noticed that last night he had trouble reading. He also complains of chest pain that began 2-3 days ago on lower chest, nonradiating. He spoke to his cougar hunter via the phone and he was asked questions regarding chest pain as well. Patient has a history of right ankle surgeries and follows up with Dr. Dominguez for pain management. Patient denies any recent fevers, chills, nausea, vomiting, diarrhea, headaches, or dizziness. Review of Systems Except as stated in HPI: all other systems reviewed are Neg Past Family Social History Past Medical History Atrial fibrillation COPD HTN history of aspiration pneumonia Chronic back pain Neuropathy Arterial insufficiency/peripheral artery disease PTSD PE DVT Past Surgical History Multiple joint surgeries left eye surgery tonsillectomy Reported Medications Reported Meds & Active Scripts Active Albuterol Neb (Albuterol Sulfate) 2.5 Mg/3 Ml Neb 2.5 Mg NEB Q4HR NEB PRN Floranex (Lactobacillus Acidophilus) 1 Gm Pkt 1 Gm PO QID 10 Days Diltiazem CD 24 HR 300 Mg Caper 300 Mg PO DAILY Eliquis (Apixaban) 5 Mg Tab 5 Mg PO BID Reported Lopressor (Metoprolol Tartrate) 50 Mg Tab 75 Mg PO BID B12 (Cyanocobalamin) 1,000 Mcg Tab Klonopin (Clonazepam) 1 Mg Tab 1 Mg PO TID Vitamin C (Ascorbic Acid) 1,000 Mg Tablet.er 1,000 Mg PO DAILY Spiriva Handihaler (Tiotropium Inh) 18 Mcg Cap 2 Puff INH DAILY 1 capsule = 18 mcg Morphine IR (Morphine Sulfate) 15 Mg Tab 15 Mg PO Q4HR PRN Multiple Vitamin 1 Tab 1 Tab PO DAILY Allergies: Coded Allergies: codeine (Verified Allergy, Severe, TURN RED, SOB, HIVES, 08/14/17) ketoconazole (Verified Allergy, Intermediate, Rash, 08/14/17) ITCHING Family History Mother: Heart disease, Buerger's disease Social History Tobacco: Quit 1 month ago, was smoking 3 ciggs previously Alcohol: Denies Illicit drug use: Denies Physical Exam Vital Signs Vital Signs Date Time Temp Pulse Resp B/P (MAP) Pulse Ox O2 Delivery O2 Flow Rate FiO2 08/14/17 16:51 74 08/14/17 16:24 98.4 70 20 113/64 (80) 99 08/14/17 16:21 68 18 124/64 (84) 99 08/14/17 14:00 64 20 128/78 (95) 100 Room Air 08/14/17 12:40 98.4 112 20 133/85 (101) 100 Physical Exam GENERAL: This is a well-nourished, well-developed patient, in no apparent distress. SKIN: No rashes, ecchymoses or lesions. Cool and dry. HEAD: Atraumatic. Normocephalic. No temporal or scalp tenderness. EYES: Pupils equal round and reactive. Extraocular motions intact. No scleral icterus. No injection or drainage. ENT: Nose without drainage. Throat without erythema. Airway patent. NECK: Trachea midline. No JVD. Supple, nontender, no meningeal signs. CARDIOVASCULAR: Irregular rhythm without murmurs, gallops, or rubs. RESPIRATORY: Clear to auscultation. Breath sounds equal bilaterally. No wheezes GASTROINTESTINAL: Abdomen soft, non-tender, nondistended. No guarding. MUSCULOSKELETAL: Extremities without edema. No joint tenderness, effusion, or edema noted. No calf tenderness. Right ankle tenderness, multiple surgical scars. NEUROLOGICAL: Awake and alert, oriented 3, forgetful. Cranial nerves II through XII intact. Decreased sensation of left side of face. LUE 4/5, RUE 5/5 , bilateral lower extremity strength 4/5. Normal speech, no facial droop. Laboratory Laboratory Tests Test 08/14/17 14:00 White Blood Count 7.1 Red Blood Count 4.19 Hemoglobin 9.5 Hematocrit 29.9 Mean Corpuscular Volume 71.5 Mean Corpuscular Hemoglobin 22.8 Mean Corpuscular Hemoglobin Concent 31.9 Red Cell Distribution Width 20.4 Platelet Count 292 Mean Platelet Volume 8.2 Neutrophils (%) (Auto) 49.4 Lymphocytes (%) (Auto) 37.6 Monocytes (%) (Auto) 11.5 Eosinophils (%) (Auto) 0.4 Basophils (%) (Auto) 1.1 Neutrophils # (Auto) 3.5 Lymphocytes # (Auto) 2.7 Monocytes # (Auto) 0.8 Eosinophils # (Auto) 0.0 Basophils # (Auto) 0.1 CBC Comment DIFF FINAL Differential Comment Blood Urea Nitrogen 8 Creatinine 0.76 Random Glucose 87 Total Protein 6.6 Albumin 3.2 Calcium Level 8.2 Alkaline Phosphatase 91 Aspartate Amino Transf (AST/SGOT) 44 Alanine Aminotransferase (ALT/SGPT) 56 Total Bilirubin 0.3 Sodium Level 136 Potassium Level 4.2 Chloride Level 101 Carbon Dioxide Level 24.0 Anion Gap 11 Estimat Glomerular Filtration Rate 103 Total Creatine Kinase 179 Creatine Kinase MB 1.5 Troponin I LESS THAN 0.02 Result Diagram: 08/14/17 1400 08/14/17 1400 Imaging Last Impressions Head CT 08/14/17 1303 Signed Impressions: CONCLUSION: 1. Negative noncontrast head CT Chest X-Ray 08/14/17 1303 Signed Impressions: CONCLUSION: Mass like density in the left lung apex measuring 2.9 x 4.7 cm stable compared to previous exam. The stability would suggest this may be scarring however, thi s should be followed to ensure stability. Chronic interstitial changes and COPD. Caprini VTE Risk Assessment Caprini VTE Risk Assessment: Mod/High Risk (score >= 2) Caprini Risk Assessment Model Point Value = 1 Point Value = 2 Point Value = 3 Point Value = 5 Age 41-60 Minor surgery BMI > 25 kg/m2 Swollen legs Varicose veins or History of unexplained or recurrent spontaneous Oral contraceptives or hormone replacement Sepsis (< 1 month) Serious lung disease, including pneumonia (< 1 month) Abnormal pulmonary function Acute myocardial infarction Congestive heart failure (< 1 month) History of inflammatory bowel disease Medical patient at bed rest Age 61-74 Arthroscopic surgery Major open surgery (> 45 min) Laparoscopic surgery (> 45 min) Malignancy Confined to bed (> 72 hours) Immobilizing plaster cast Central venous access Age >= 75 History of VTE Family history of VTE Factor V Leiden Prothrombin [id number] Lupus anticoagulant Anticardiolipin antibodies Elevated serum homocysteine Heparin-induced thrombocytopenia Other congenital or acquired thrombophilia Stroke (< 1 month) Elective arthroplasty Hip, pelvis, or leg fracture Acute spinal cord injury (< 1 month) Prophylaxis Regimen Total Risk Factor Score Risk Level Prophylaxis Regimen 0-1 Low Early ambulation 2 Moderate Order ONE of the following: *Sequential Compression Device (SCD) *Heparin 5000 units SQ BID 3-4 Higher Order ONE of the following medications: *Heparin 5000 units SQ TID *Enoxaparin/Lovenox 40 mg SQ daily (WT < 150 kg, CrCl > 30 mL/min) *Enoxaparin/Lovenox 30 mg SQ daily (WT < 150 kg, CrCl > 10-29 mL/min) *Enoxaparin/Lovenox 30 mg SQ BID (WT < 150 kg, CrCl > 30 mL/min) AND/OR *Sequential Compression Device (SCD) 5 or more Highest Order ONE of the following medications: *Heparin 5000 units SQ TID (Preferred with Epidurals) *Enoxaparin/Lovenox 40 mg SQ daily (WT < 150 kg, CrCl > 30 mL/min) *Enoxaparin/Lovenox 30 mg SQ daily (WT < 150 kg, CrCl > 10-29 mL/min) *Enoxaparin/Lovenox 30 mg SQ BID (WT < 150 kg, CrCl > 30 mL/min) AND *Sequential Compression Device (SCD) Assessment and Plan Assessment and Plan 67-year-old with PMH of a. fib anticoagulated on Eliquis, DVT, PE, CHF, COPD, chronic back of the right ankle, neuropathy, arterial/peripheral artery insufficiency, and PTSD who presents to the ER with complaints of SOB and not feeling well. This is patient's third visit in the past 4 days, recently treated in [place] for A. fib with RVR. A. fib with RVR -Heart rate on admission 112, EKG with A. fib, heart rate 80 -Patient received Ativan 2 mg IV push while in the ER, heart rate improved in the 60s-70s -We will continue p.o. diltiazem, metoprolol 75 mg twice daily and Eliquis -Patient with frequent episodes of uncontrolled rate, consult Dr. Clay for further recommendation, appreciate assistance. Chest pain - ? Chest pain could be anxiety related versus uncontrolled A. fib rate -EKG with no ST changes, initial troponin negative, obtain serial CE Left-sided weakness Transient left eye vision loss Difficulty with memory -Head CT scan negative - ? TIA due to patient's recurrent episodes of uncontrolled A. fib rate -Check carotid ultrasounds, MRA, consult neurology for further recommendations -PT consult COPD -Shortness of breath likely related to uncontrolled A. fib. -Initially thought to be COPD exacerbation in the ER, administered Solu- Medrol 125 mg IV -No wheezing on exam, hold off on steroids -Continue Spiriva, ipratropium nebs every 6 hours while awake and as needed -Supplemental oxygen to keep saturations between 88-92%, continue monitoring respiratory status closely. Chronic pain -Discussed with patient continuing home medications, will need to follow-up with pain management. PTSD Anxiety -Will continue Klonopin 1 mg 3 times daily - ? Recent episodes may be related to increased anxiety -Patient initially presented to the emergency department with elevated heart rate, administered Ativan 2 mg IV with subsequent improvement in heart rate -Consult psychiatry for evaluation, appreciate assistance Microcytic anemia -No complaints of black or bloody stools, stable, continue monitoring. DVT prophylaxis-Eliquis This note was transcribed by mamta Archuleta. I, Dr. Rosita Castandea personally performed the history, physical exam, and medical decision making; and confirmed the accuracy of the information in the transcribed note. Authenticated by Dr. Rosita Castaneda on 08/14/17 at 17:31 Code Status Discussed CODE STATUS with patient, verbalized understanding. He wishes to be a DNR. Discussed Condition With ER physician and patient. Jaime Archuleta Aug 14, 2017 17:34 Rosita Castaneda MD Aug 14, 2017 19:25
[2017-08-14] MEDS: clonazePAM 1 MG TAB PO SCH (18:14)
[2017-08-14] MEDS: MORPHINE SULFATE 15 MG TAB PO PRN ×2 (18:14→22:03)
[2017-08-14] MEDS ORDERED: RESP: IPRATROPIUM 0.5 MG/2.5 ML NEB NEB PRN (18:30)
--- NOTE | 2017-08-14 20:01 | RADRPT ---
EXAM DATE: 08/14/2017 7:52 PM EDT AGE/SEX: 67 years / Male INDICATIONS: CVA. CLINICAL DATA: This is the patient's initial encounter. Patient reports that signs and symptoms have been present for 1 day and indicates a pain score of 3/10. MEDICAL/SURGICAL HISTORY: Hypertension. Pancreatitis. Deep venous thrombosis. Hep C. Tonsil lectomy. Right ankle sx. [place]PAR[place]: [facility] [place]/14/2017. . TECHNIQUE: 3D [id number] MRA was performed. Source images, multiplanar STS MIP, and 3D volum e MIP reconstructions were reviewed. FINDINGS: Anterior circulation: There are internal carotid arteries demonstrate no significant luminal narrowin g or abnormality. Anterior cerebral arteries and middle cerebral arteries are symmetric. No aneurysm or high-grade stenosis is visualized. Posterior circulation: There is persistent circulation on the right. Left vertebral artery is n ot visualized. Basilar artery and left posterior cerebral artery are within normal limits. CONCLUSION: No acute intracranial vascular abnormality is identified. Electronically signed by: Dominic Bryant MD 08/14/2017 7:59 PM EDT
--- NOTE | 2017-08-14 20:04 | RADRPT ---
EXAM DATE: 08/14/2017 7:53 PM EDT AGE/SEX: 67 years / Male INDICATIONS: CVA. CLINICAL DATA: This is the patient's initial encounter. Patient reports that signs and symptoms have been present for 1 day and indicates a pain score of 3/10. MEDICAL/SURGICAL HISTORY: Hypertension. Deep venous thrombosis. Pancreatitis. Hep C. Tonsil lectomy. Right ankle sx, Cataracts. COMPARISON: [facility] [place], [place] BRAIN W/O CONTRAST, 08/14/2017. . TECHNIQUE: Multiplanar, multisequence examination of the brain was performed without contrast. FINDINGS: Cerebrum: There is mild generalized atrophy. Ventricles are normal in size given the degree of atrop hy present. No evidence of midline shift, mass lesion, hemorrhage or acute infarction. No extraaxia l fluid collections are seen. The pituitary gland and suprasellar cistern are normal in configuratio n. White Matter: Minimal periventricular white matter change is present. Posterior Fossa: The cerebellum and brainstem are intact. The 4th ventricle is midline. The cerebel lopontine angle is unremarkable. The cerebellar tonsils are normal in position. Diffusion Imaging: No focal areas of restricted diffusion are seen. No evidence of acute infarction . Extracranial: The visualized portions of the orbits and paranasal sinuses are unremarkable. CONCLUSION: 1. No acute intracranial abnormality is identified. 2. There is mild generalized atrophy. Electronically signed by: Dominic Bryant MD 08/14/2017 8:02 PM EDT
[2017-08-14] MEDS: RESP: IPRATROPIUM 0.5 MG/2.5 ML NEB NEB SCH (20:05)
[2017-08-14] MEDS ORDERED: METOPROLOL TARTRATE 25 MG TAB PO SCH ×2 (21:00)
[2017-08-14] MEDS: SODIUM CHLORIDE 0.9% FLUSH 10 ML FLUSH IV FLUSH SCH (21:00)
[2017-08-14] MEDS: APIXABAN 5 MG TABLET PO SCH (21:41)
[2017-08-14 21:45] LABS: TROPONIN I LESS THAN 0.02 NG/ML (0.02-0.05)
[2017-08-14 23:11] VITALS: BP 100/60; PULSE 42; RESP 17; TEMP 98.3; O2SAT 98
[2017-08-15] VITALS (9 sets, daily range): BP systolic 104–117; BP diastolic 56–74; PULSE 52–84; RESP 16–18; TEMP 97.6–98.9; O2SAT 95–100
[2017-08-15] MEDS: MORPHINE SULFATE 15 MG TAB PO PRN ×6 (01:59→23:39)
[2017-08-15 03:38] LABS: TROPONIN I LESS THAN 0.02 NG/ML (0.02-0.05)
[2017-08-15] MEDS: RESP: IPRATROPIUM 0.5 MG/2.5 ML NEB NEB SCH ×3 (07:25→19:48)
[2017-08-15] MEDS: SODIUM CHLORIDE 0.9% FLUSH 10 ML FLUSH IV FLUSH SCH ×2 (09:00→23:39)
[2017-08-15] MEDS: TIOTROPIUM BROMIDE 18 MCG INH INH SCH (09:00)
[2017-08-15] MEDS: MULTIVITAMIN TAB PO SCH (09:58)
[2017-08-15] MEDS: DILTIAZEM-CD 300 MG CAP ER PO SCH (09:58)
[2017-08-15] MEDS: ASCORBIC ACID 500 MG TAB PO SCH (09:58)
[2017-08-15] MEDS: clonazePAM 1 MG TAB PO SCH ×3 (09:59→19:37)
[2017-08-15] MEDS: METOPROLOL TARTRATE 25 MG TAB PO SCH ×2 (09:59→22:09)
[2017-08-15] MEDS: APIXABAN 5 MG TABLET PO SCH ×2 (09:59→22:09)
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
[2017-08-15 10:16] LABS: BASOPHIL % 0.2 % (0.0-2.0); HEMATOCRIT 26.3 % (39.0-51.0); HEMOGLOBIN 8.5 GM/DL (13.0-17.0); LYMPH % 37.7 % (9.0-44.0); LYMPHOCYTE # 2.1 TH/MM3 (1.0-4.8); MEAN CELL VOLUME 71.3 FL (80.0-100.0); MEAN CORPUSCULAR HGB CONC 32.3 % (32.0-36.0); MEAN PLATELET VOLUME 8.4 FL (7.0-11.0); MONOCYTE # 0.3 TH/MM3 (0-0.9); NEUT % 56.1 % (16.0-70.0); PLATELET COUNT 253 TH/MM3 (150-450); RED BLOOD COUNT 3.69 MIL/MM3 (4.50-5.90); RED CELL DISTRIBUTION WIDTH 20.4 % (11.6-17.2); WHITE BLOOD COUNT 5.4 TH/MM3 (4.0-11.0)
[2017-08-15 10:46] LABS: BICARBONATE 23.5 MEQ/L (21.0-32.0); BLOOD UREA NITROGEN 12 MG/DL (7-18); CALCIUM 8.1 MG/DL (8.5-10.1); CHLORIDE 97 MEQ/L (98-107); CREATININE 0.85 MG/DL (0.60-1.30); GLOMERULAR FILTRATION RATE 90 ML/MIN (>89); GLUCOSE,RANDOM 116 MG/DL (74-106); SODIUM (NA) 132 MEQ/L (136-145)
[2017-08-15 10:49] LABS: % SATURATION IRON PROFILE 7.7 % (20-50); FERRITIN 6 NG/ML (26-388); IRON (FE) 35 MCG/DL (65-175); TOTAL IRON BINDING CAPACITY 455 MCG/DL (250-450)
--- NOTE | 2017-08-15 11:51 | MB ---
cc: Ethel Amor MD DATE: 08/15/2017 REASON FOR CONSULTATION: TIA. HISTORY OF PRESENT ILLNESS: The patient is a 67-year-old man that sees Dr. Clay with a history of chronic atrial fibrillation and COPD, on Cardizem-CD 300 mg a day and metoprolol 50 mg twice a day. He came in because he was having some confusion, not responding properly to his , could not process thoughts, headache over his left eye, and some numbness,possibly in the left arm. He has a significant history of atrial fibrillation, PTSD, DVT, PE, COPD and peripheral arterial disease. He has also been followed by Dr. Maria for his left upper lobe abnormality of the lung. His last nuclear stress test in 2009 shows a large fixed inferior lateral defect. CURRENT MEDICATIONS: As stated, but he is also on Eliquis 5 mg twice a day. SOCIAL HISTORY: . Quit smoking 3 years ago. ALLERGIES: CODEINE, NIZORAL AND KETOCONAZOLE. PHYSICAL EXAMINATION: VITAL SIGNS: Temperature is 97.6, pulse 60, respiratory rate 18, blood pressure 117/99. NECK: Supple. No appreciable bruits. HEART: Irregularly irregular, is in atrial fibrillation. ABDOMEN: Soft. EXTREMITIES: Decreased pedal pulses, but no edema. NEUROLOGIC: He is awake and alert. He knows he is at the hospital. His speech is fluent. He looks anxious. Pupils reactive. Visual martinez are full. Face is symmetrical. Motor hussein, he does not have any drift or leg lag. He does have a little bit of trouble on [id number], but when I asked him to look and keep his eyes open, he did improve. He is not dysmetric. DTRs are 1+. Toes withdraw. Sensory otherwise is intact. Gait is not assessed at bedside at this time. DIAGNOSTIC STUDIES: He had a brain MRI that did not show anything acute, just mild atrophy. MRA [place] without any intracranial disease. CBC shows a hemoglobin of 8.5; his platelets are 253,000; white count 5.4. Chemistries calcium 8.2. He has some iron studies pending. AST 44, ALT 56. His 2-D echo is still pending as is carotid ultrasound. IMPRESSION: Possible transient ischemic attack-like event in a 67-year-old male with a history of atrial fibrillation, anticoagulated at this point in time with Eliquis. PLAN: Recommend continuing his medication per cardiology. We will get the echo and a carotid ultrasound. Continue to monitor his anxiety and posttraumatic stress disorder. He is anemic. Iron studies are pending. Further recommendations will be made if needed. Have PT assess him and get him out of bed. Continue his Eliquis as doing. MD [place] Bai/CELINE , 10:25 AM , 11:49 AM
--- NOTE | 2017-08-15 13:43 | HHI.PR ---
Subjective Remarks Follow up a-fib, chest pain, ?TIA. Patient still reporting lightheadedness/ dizziness. No chest pain or dyspnea at this time. He states that he feels weak and unsteady. Objective Vitals Vital Signs Date Time Temp Pulse Resp B/P (MAP) Pulse Ox O2 Delivery O2 Flow Rate FiO2 08/15/17 08:00 97.6 60 18 117/74 (88) 99 08/15/17 07:13 20 08/15/17 03:24 98.2 56 16 104/56 (72) 99 08/14/17 23:11 98.3 42 17 100/60 (73) 98 08/14/17 16:51 74 08/14/17 16:24 98.4 70 20 113/64 (80) 99 08/14/17 16:21 68 18 124/64 (84) 99 08/14/17 14:00 64 20 128/78 (95) 100 Room Air I/O 08/14/17 08/14/17 08/14/17 08/15/17 08/15/17 08/15/17 07:00 15:00 23:00 07:00 15:00 23:00 Intake Total 450 ml Balance 450 ml Intake Oral 450 ml Result Diagram: 08/15/1702 08/15/17 0902 Imaging Last Impressions Head CT 08/14/17 1303 Signed Impressions: CONCLUSION: 1. Negative noncontrast head CT Chest X-Ray 08/14/17 1303 Signed Impressions: CONCLUSION: Mass like density in the left lung apex measuring 2.9 x 4.7 cm stable compared to previous exam. The stability would suggest this may be scarring however, thi s should be followed to ensure stability. Chronic interstitial changes and COPD. Head Magnetic Resonance Angiography 08/14/17 0000 Signed Impressions: CONCLUSION: No acute intracranial vascular abnormality is identified. Brain MRI 08/14/17 0000 Signed Impressions: CONCLUSION: 1. No acute intracranial abnormality is identified. 2. There is mild generalized atrophy. Objective Remarks General: Elderly male in no acute distress. Heart: Irregular rhythm. No murmur. Lungs: Clear to auscultation with decreased breath sounds. Breathing is nonlabored. Abdomen: Soft, nontender, nondistended. Extremities: No lower extremity edema. Psych: Alert and oriented. Neuro: Normal speech. Procedures None Urinary Catheter: No Vascular Central Line Catheter: No A/P Problem List: (1) Left-sided weakness ICD Code: R53.1 - Weakness (2) Transient visual loss, left eye ICD Code: H53.122 - Transient visual loss, left eye (3) Chest pain ICD Code: R07.9 - Chest pain, unspecified (4) PTSD (post-traumatic stress disorder) ICD Code: F43.10 - Posttraumatic stress disorder Status: Chronic (5) Atrial fibrillation with rapid ventricular response ICD Code: I48.91 - Unspecified atrial fibrillation Status: Acute Assessment and Plan 1. Atrial fibrillation: Rate now controlled. Appreciate cardiology recommendations. Continue metoprolol at lower dose. Continue diltiazem, Eliquis. 2. Probable TIA: Appreciate neurology recommendations. Carotid artery ultrasound, echocardiogram pending. 3. Weakness, unsteady gait: Physical therapy. 4. COPD: Not in acute exacerbation at this time. Continue Spiriva, DuoNeb. 5. PTSD: Continue Klonopin. Psychiatry consultation pending. 6. Iron deficiency anemia: Start supplemental iron. Monitor H&H. No reported bleeding. 7. DVT prophylaxis: Eliquis. Discharge Planning Pending further workup. Edgardo Vivas MD Aug 15, 2017 13:43
--- NOTE | 2017-08-15 14:40 | EKG ---
Date Performed: 08/14/2017 Time Performed: 20:31:30 PTAGE: 67 years EKG: ATRIAL FIBRILLATION WITH SLOW VENTRICULAR RESPONSE ABNORMAL RHYTHM ECG PREVIOUS TRACING : 08/14/2017 13.17 Since previous tracing, heart rate is somewhat slower, othe rwise no significant change. DOCTOR: Ramirez Abbott Interpretating Date/Time 08/15/2017 14:39:04
--- NOTE | 2017-08-15 14:40 | EKG ---
Date Performed: 08/15/2017 Time Performed: 00:55:15 PTAGE: 67 years EKG: ATRIAL FIBRILLATION WITH SLOW VENTRICULAR RESPONSE PROLONGED QT INTERVAL ABNORMAL ECG PREVIOUS TRACING : 08/14/2017 20.31 Since previous tracing, QT interval slightly longer, otherw ise no significant change. DOCTOR: Ramirez Abbott Interpretating Date/Time 08/15/2017 14:39:30
--- NOTE | 2017-08-15 14:40 | EKG ---
Date Performed: 08/14/2017 Time Performed: 13:17:17 PTAGE: 67 years EKG: ATRIAL FIBRILLATION ABNORMAL RHYTHM ECG PREVIOUS TRACING : 08/13/2017 10.15 Since previous tracing, heart rate is slower. ST-T changes have improved and QRS votlage has returned to normal. DOCTOR: Ramirez Abbott Interpretating Date/Time 08/15/2017 14:38:40
--- NOTE | 2017-08-15 16:24 | RADRPT ---
EXAM DATE: 08/15/2017 3:47 PM EDT AGE/SEX: 67 years / Male INDICATIONS: Cerebrovascular accident. CLINICAL DATA: This is the patient's initial encounter. Patient reports that signs and symptoms have been present for 1 day and indicates a pain score of 0/10. MEDICAL/SURGICAL HISTORY: . Thyroid disease. Afib. HTN. DVT. COPD. Pancreatitis. . Catara ct. Tonsillectomy. Right ankle surgery. COMPARISON: [facility], CT PULMONARY ANGIOGRAM, 08/13/2017. . No external comparison. VELOCITY PARAMETERS: ICA/CCA Ratio: Right 0.6 , Left 0.9 ICA: Right 40.0 cm/sec, Left 46.4 cm/sec CCA: Right 69.7 cm/sec, Left 52.9 cm/sec ECA: Right 50.1 cm/sec, Left 50.8 cm/sec Vertebral: Right 33.1 cm/sec antegrade, Left Not visualized cm/sec absent FINDINGS: Right Carotid: Mild plaque bulb and proximal internal carotid artery without significant narrowing. Waveforms are within normal limits. Left Carotid: Mild plaque at the bulb and proximal internal carotid artery without significant narro wing. Waveforms are within normal limits. Other: No perceptible flow in the left vertebral artery. CONCLUSION: 1. Right Internal Carotid Artery: Mild bifurcation atherosclerotic plaque without significant narrow ing.. 2. Left Internal Carotid Artery: Mild bifurcation atherosclerotic plaque without significant narrowi ng. 3. Flow not clearly demonstrated in the left vertebral artery. Electronically signed by: Dominic Chacon MD 08/15/2017 4:23 PM EDT
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
[2017-08-15] MEDS: FERROUS SULFATE 325 MG (65 MG ELEMENTAL IRON) TAB PO SCH (19:03)
[2017-08-16] VITALS (7 sets, daily range): BP systolic 103–129; BP diastolic 60–77; PULSE 50–78; RESP 18; TEMP 97.9–98.2; O2SAT 96–100
[2017-08-16 04:38] LABS: HEMATOCRIT 27.7 % (39.0-51.0); MEAN CELL VOLUME 71.8 FL (80.0-100.0); MEAN CORPUSCULAR HEMOGLOBIN 23.3 PG (27.0-34.0); MEAN CORPUSCULAR HGB CONC 32.5 % (32.0-36.0); MEAN PLATELET VOLUME 7.8 FL (7.0-11.0); PLATELET COUNT 281 TH/MM3 (150-450); RED BLOOD COUNT 3.86 MIL/MM3 (4.50-5.90); RED CELL DISTRIBUTION WIDTH 20.8 % (11.6-17.2); WHITE BLOOD COUNT 9.6 TH/MM3 (4.0-11.0)
[2017-08-16] MEDS: MORPHINE SULFATE 15 MG TAB PO PRN ×5 (04:54→23:08)
[2017-08-16 05:04] LABS: BICARBONATE 22.7 MEQ/L (21.0-32.0); CALCIUM 8.1 MG/DL (8.5-10.1); CREATININE 0.83 MG/DL (0.60-1.30)
[2017-08-16] MEDS: MULTIVITAMIN TAB PO SCH (09:42)
[2017-08-16] MEDS: ASCORBIC ACID 500 MG TAB PO SCH (09:42)
[2017-08-16] MEDS: DILTIAZEM-CD 300 MG CAP ER PO SCH (09:42)
[2017-08-16] MEDS: APIXABAN 5 MG TABLET PO SCH ×2 (09:43→22:09)
[2017-08-16] MEDS: METOPROLOL TARTRATE 25 MG TAB PO SCH ×2 (09:43→22:09)
[2017-08-16] MEDS: clonazePAM 1 MG TAB PO SCH ×3 (09:43→18:07)
[2017-08-16] MEDS: SODIUM CHLORIDE 0.9% FLUSH 10 ML FLUSH IV FLUSH SCH ×2 (09:45→22:08)
[2017-08-16] MEDS: TIOTROPIUM BROMIDE 18 MCG INH INH SCH (09:45)
[2017-08-16] MEDS: RESP: IPRATROPIUM 0.5 MG/2.5 ML NEB NEB SCH ×3 (10:12→19:22)
--- NOTE | 2017-08-16 11:23 | PD.CARD.PN ---
Subjective Subjective Remarks no new complaints Objective Medications Current Medications Medications (Trade) Dose Ordered Sig/Antelmo Route Start Time Stop Time Status Last Admin (NS Flush) 2 ml UNSCH PRN IV FLUSH 08/14/17 16:00 (NS Flush) 2 ml BID IV FLUSH 08/14/17 21:00 08/16/17 09:45 (Eliquis) 5 mg BID PO 08/14/17 21:00 08/16/17 09:43 (KlonoPIN) 1 mg TID PO 08/14/17 18:00 08/16/17 09:43 (Msir) 15 mg Q4H PRN PO 08/14/17 18:00 08/16/17 09:56 (Vitamin C) 1,000 mg DAILY PO 08/15/17 09:00 08/16/17 09:42 (Theragran) 1 tab DAILY PO 08/15/17 09:00 08/16/17 09:42 (Spiriva Inh) 1 mcg DAILY INH 08/15/17 09:00 08/16/17 09:45 (Atrovent Neb) 0.5 mg Q6HR WHILE AWAKE NEB NEB 08/14/17 20:00 08/15/17 14:26 (Atrovent Neb) 0.5 mg Q4HR NEB PRN NEB 08/14/17 18:30 (Lopressor) 25 mg BID PO 08/15/17 09:00 08/16/17 09:43 (Ferrous Sulfate) 325 mg BID@12,17 PO 08/15/17 17:00 08/15/17 19:03 (Cardizem Cd) 240 mg DAILY PO 08/17/17 09:00 UNV Vital Signs / I&O Vital Signs Date Time Temp Pulse Resp B/P (MAP) Pulse Ox O2 Delivery O2 Flow Rate FiO2 08/16/17 10:12 100 08/16/17 08:27 98.2 50 18 103/60 (74) 98 08/16/17 04:02 97.9 70 18 107/77 (87) 98 08/15/17 23:57 98.0 84 18 109/69 (82) 95 08/15/17 20:00 54 08/15/17 19:49 99 21 08/15/17 19:16 98.0 57 18 110/70 (83) 100 08/15/17 18:28 59 08/15/17 15:59 20 08/15/17 15:05 98.9 52 18 114/58 (76) 99 08/15/17 12:00 98.5 53 18 112/63 (79) 97 Physical Exam Alert Chest clear CV S1S2 irr irr No edema. Tele: bradycardia; 2.3" pause, 8 beat run slow VT 04:27 Laboratory Laboratory Tests Test 08/16/17 04:19 White Blood Count 9.6 TH/MM3 Red Blood Count 3.86 MIL/MM3 Hemoglobin 9.0 GM/DL Hematocrit 27.7 % Mean Corpuscular Volume 71.8 FL Mean Corpuscular Hemoglobin 23.3 PG Mean Corpuscular Hemoglobin Concent 32.5 % Red Cell Distribution Width 20.8 % Platelet Count 281 TH/MM3 Mean Platelet Volume 7.8 FL CBC Comment DIFF FINAL Differential Comment Blood Urea Nitrogen 17 MG/DL Creatinine 0.83 MG/DL Random Glucose 100 MG/DL Calcium Level 8.1 MG/DL Sodium Level 134 MEQ/L Potassium Level 4.2 MEQ/L Chloride Level 99 MEQ/L Carbon Dioxide Level 22.7 MEQ/L Anion Gap 12 MEQ/L Estimat Glomerular Filtration Rate 93 ML/MIN Assessment and Plan Problem List: (1) Permanent atrial fibrillation ICD Codes: I48.2 - Chronic atrial fibrillation Plan: Reduce diltiazem dose to 240 mg (2) Ventricular tachycardia, paroxysmal ICD Codes: I47.2 - Ventricular tachycardia Plan: 8 beat run, asymptomatic. No angina and prior SPECT without ischemia, cont. beta bolivar. Hector Oliver MD Aug 16, 2017 11:23
[2017-08-16] MEDS: FERROUS SULFATE 325 MG (65 MG ELEMENTAL IRON) TAB PO SCH ×2 (13:36→18:07)
--- NOTE | 2017-08-16 13:42 | HHI.PR ---
Subjective Remarks Follow-up for A. fib, TIA. Patient reports feeling well again today. Denies any lightheadedness, dizziness, chest pain, palpitations, or shortness of breath. He had a 8 beat run of NSVT around 4 AM this morning, asymptomatic. He has no other medical complaints at this time. Objective Vitals Vital Signs Date Time Temp Pulse Resp B/P (MAP) Pulse Ox O2 Delivery O2 Flow Rate FiO2 08/16/17 12:15 98.2 62 18 110/62 (78) 98 08/16/17 10:12 100 08/16/17 08:27 98.2 50 18 103/60 (74) 98 08/16/17 04:02 97.9 70 18 107/77 (87) 98 08/15/17 23:57 98.0 84 18 109/69 (82) 95 08/15/17 20:00 54 08/15/17 19:49 99 21 08/15/17 19:16 98.0 57 18 110/70 (83) 100 08/15/17 18:28 59 08/15/17 15:59 20 08/15/17 15:05 98.9 52 18 114/58 (76) 99 Result Diagram: 08/16/17 0419 08/16/17 0419 Imaging Last Impressions Carotid Artery Ultrasound 08/15/17 0000 Signed Impressions: CONCLUSION: 1. Right Internal Carotid Artery: Mild bifurcation atherosclerotic plaque with out significant narrowing.. 2. Left Internal Carotid Artery: Mild bifurcation atherosclerotic plaque witho ut significant narrowing. 3. Flow not clearly demonstrated in the left vertebral artery. Head CT 08/14/17 1303 Signed Impressions: CONCLUSION: 1. Negative noncontrast head CT Chest X-Ray 08/14/17 1303 Signed Impressions: CONCLUSION: Mass like density in the left lung apex measuring 2.9 x 4.7 cm stable compared to previous exam. The stability would suggest this may be scarring however, thi s should be followed to ensure stability. Chronic interstitial changes and COPD. Head Magnetic Resonance Angiography 08/14/17 0000 Signed Impressions: CONCLUSION: No acute intracranial vascular abnormality is identified. Brain MRI 08/14/17 0000 Signed Impressions: CONCLUSION: 1. No acute intracranial abnormality is identified. 2. There is mild generalized atrophy. Objective Remarks GENERAL: Well-nourished, well-developed male patient in NAD. SKIN: Warm and dry. No rash. HEENT: Normocephalic. Atraumatic. Pupils equal and round. Mucous membranes pink and moist. CARDIOVASCULAR: Irregular bradycardic rate and rhythm. No murmur appreciated. RESPIRATORY: No accessory muscle use. Clear to auscultation. Breath sounds equal bilaterally. GASTROINTESTINAL: Abdomen soft, non-tender, nondistended. Normoactive bowel sounds x4. MUSCULOSKELETAL: No obvious deformities. Extremities without clubbing, cyanosis , or edema. NEUROLOGICAL: Awake and alert. No obvious cranial nerve deficits. Motor grossly within normal limits. Moving all extremities spontaneously. Normal speech. PSYCHIATRIC: Appropriate mood and affect; insight and judgment normal. Procedures None Medications and IVs Current Medications Medications (Trade) Dose Ordered Sig/Antelmo Route Start Time Stop Time Status Last Admin (NS Flush) 2 ml UNSCH PRN IV FLUSH 08/14/17 16:00 (NS Flush) 2 ml BID IV FLUSH 08/14/17 21:00 08/16/17 09:45 (Eliquis) 5 mg BID PO 08/14/17 21:00 08/16/17 09:43 (KlonoPIN) 1 mg TID PO 08/14/17 18:00 08/16/17 09:43 (Msir) 15 mg Q4H PRN PO 08/14/17 18:00 08/16/17 09:56 (Vitamin C) 1,000 mg DAILY PO 08/15/17 09:00 08/16/17 09:42 (Theragran) 1 tab DAILY PO 08/15/17 09:00 08/16/17 09:42 (Spiriva Inh) 1 mcg DAILY INH 08/15/17 09:00 08/16/17 09:45 (Atrovent Neb) 0.5 mg Q6HR WHILE AWAKE NEB NEB 08/14/17 20:00 08/15/17 14:26 (Atrovent Neb) 0.5 mg Q4HR NEB PRN NEB 08/14/17 18:30 (Lopressor) 25 mg BID PO 08/15/17 09:00 08/16/17 09:43 (Ferrous Sulfate) 325 mg BID@12,17 PO 08/15/17 17:00 08/15/17 19:03 (Cardizem Cd) 240 mg DAILY PO 08/17/17 09:00 A/P Problem List: (1) Left-sided weakness ICD Code: R53.1 - Weakness (2) Transient visual loss, left eye ICD Code: H53.122 - Transient visual loss, left eye (3) Chest pain ICD Code: R07.9 - Chest pain, unspecified (4) PTSD (post-traumatic stress disorder) ICD Code: F43.10 - Posttraumatic stress disorder Status: Chronic (5) Atrial fibrillation with rapid ventricular response ICD Code: I48.91 - Unspecified atrial fibrillation Status: Acute Assessment and Plan 67-year-old with PMH of a. fib anticoagulated on Eliquis, DVT, PE, CHF, COPD, chronic pain, neuropathy, PAD, and PTSD who presents to the ER with complaints of SOB and not feeling well. This is patient's third visit in the past 4 days, recently treated in [place] for A. fib with RVR. A. fib with RVR: Heart rate on admission 112, EKG with A. fib -Continue patient's anticoagulation with Eliquis -Continue patient's Cardizem and metoprolol -Cardiology consulted, patient known to Dr. Clay, seen by Dr. Oliver, appreciate recommendations -Patient with bradycardic rate, decreased metoprolol dosing to 25 mg bid and Cardizem 240 mg daily -Continue to monitor Chest pain: atypical chest pain, could be anxiety related versus uncontrolled A. fib rate -ACS ruled out with negative serial cardiac enzymes 4 and EKG without acute ischemic changes -Monitor on telemetry -Chest pain resolved. TIA: Presented with vague neurological complaints, left-sided weakness, transient left eye vision loss, difficulty with memory -Head CT and brain MRI reviewed, no acute findings -Continued patient's anticoagulation with Eliquis -Carotid ultrasound with mild plaque, no significant narrowing -PT consult, no physical therapy needed at discharge, recommends wheeled walker -Neurology consulted, appreciate recommendations -2d Echo pending COPD: Chronic, not an exacerbation, no wheezing on exam -Continue Spiriva, ipratropium nebs every 6 hours while awake and as needed -Stable on room air Chronic pain -Discussed with patient continuing home medications, will need to follow-up with pain management. PTSD/Anxiety -Continue Klonopin 1 mg 3 times daily -Consult psychiatry for evaluation, appreciate assistance Iron deficiency anemia: Hemoglobin 9.9 upon arrival, decreased to 8.5 -Iron studies consistent with iron deficiency -Started on ferrous sulfate 325 mg bid -No complaints of black or bloody stools however will check stool Hemoccult -Monitor CBC, improved today, hemoglobin 9.0 DVT prophylaxis: Eliquis Discharge Planning Discharge pending echo and cardiac clearance. Likely discharge in am on 08/17. Patient has appt with new PCP Dr. Tarango tomorrow 08/17 at 10am. Veronica Cornejo PA-C Aug 16, 2017 1:42 pm
--- NOTE | 2017-08-16 18:23 | ECHRPT ---
Indication: CVA/TIA CONCLUSIONS The left ventricular systolic function is mildly reduced with an estimated ejection fraction in the range of 45- 50%. Wall thickness is measured at the upper limits of normal. Normal left ventricular size. There is moderate tricuspid regurgitation. The estimated pulmonary arterial pressure is 36.8 mmHg. BP: / HR: Rhythm: Sinus MEASUREMENTS (Male / Female) Normal Values Technical Quality:Good 2D ECHO LV Diastolic Diameter PLAX 4.7 cm 4.2 - 5.9 / 3.9 - 5.3 cm LV Systolic Diameter PLAX 3.8 cm IVS Diastolic Thickness 1.1 cm 0.6 - 1.0 / 0.6 - 0.9 cm LVPW Diastolic Thickness 1.2 cm 0.6 - 1.0 / 0.6 - 0.9 cm LV Relative Wall Thickness 0.5 LVOT Diameter 2.4 cm M-MODE Aortic Root Diameter MM 4.2 cm LA Systolic Diameter MM 3.5 cm LA Ao Ratio MM 0.8 AV Cusp Separation MM 2.2 cm DOPPLER AV Peak Velocity 88.2 cm/s AV Peak Gradient 3.1 mmHg LVOT Peak Velocity 68.6 cm/s LVOT Peak Gradient 1.9 mmHg AV Area Cont Eq pk 3.5 cm TR Peak Velocity 259.0 cm/s TR Peak Gradient 26.8 mmHg Right Atrial Pressure 10.0 mmHg Pulmonary Artery Systolic Pressu 36.8 mmHg Right Ventricular Systolic Press 36.8 mmHg PV Peak Velocity 69.2 cm/s PV Peak Gradient 1.9 mmHg FINDINGS LEFT VENTRICLE The left ventricular systolic function is mildly reduced with an estimated ejection fraction in the range of 45- 50%. Wall thickness is measured at the upper limits of normal. Normal left ventricular size. RIGHT VENTRICLE Normal right ventricular size and systolic function. LEFT ATRIUM The left atrial size is normal. RIGHT ATRIUM The right atrial size is normal. ATRIAL SEPTUM Normal atrial septal thickness without atrial level shunting by limited color doppler interrogation. AORTA The aortic root and proximal ascending aorta are normal in size on limited imaging. MITRAL VALVE Structurally normal mitral valve. No mitral valve stenosis or regurgitation. AORTIC VALVE Trileaflet aortic valve. No aortic valve stenosis or regurgitation. TRICUSPID VALVE There is moderate tricuspid regurgitation. The estimated pulmonary arterial pressure is 36.8 mmHg. PULMONARY VALVE No pulmonary valve regurgitation or stenosis. VESSELS The inferior vena cava is normal in size. PERICARDIUM No pericardial effusion. Jacky Howe MD, FACC, FSCAI (Electronically Signed) Final Date:16 August 2017 18:22
[2017-08-17 00:45] VITALS: BP 109/65; PULSE 57; RESP 16; TEMP 98.3; O2SAT 99
[2017-08-17] MEDS: MORPHINE SULFATE 15 MG TAB PO PRN ×2 (03:17→09:27)
[2017-08-17 06:11] VITALS: BP 102/59; PULSE 58; RESP 16; TEMP 98; O2SAT 100
[2017-08-17] MEDS ORDERED: METO25TA3 PO (07:20)
[2017-08-17] MEDS ORDERED: DILT240C44 PO (07:20)
--- NOTE | 2017-08-17 07:21 | HHI.DCPOC ---
Discharge Care Plan Diagnosis: (1) Atrial fibrillation (2) Hypertension (3) COPD (chronic obstructive pulmonary disease) Goals to Promote Your Health * To prevent worsening of your condition and complications * To maintain your health at the optimal level Directions to Meet Your Goals Take your medications as prescribed Follow your dietary instruction Follow activity as directed Keep your appointments as scheduled Take your immunizations and boosters as scheduled If your symptoms worsen call your PCP, if no PCP go to Urgent Care Center or Emergency Room Smoking is Dangerous to Your Health. Avoid second hand smoke Call the 24-hour hour crisis hotline for domestic abuse at Veronica Cornejo PA-C Aug 17, 2017 7:21 am
[2017-08-17] MEDS ORDERED: FERR325T20 PO (07:22)
[2017-08-17 07:35] VITALS: PULSE 55
[2017-08-17 08:14] VITALS: BP 120/70; PULSE 56; RESP 20; TEMP 97; O2SAT 100
--- NOTE | 2017-08-17 08:53 | HHI.DS ---
cc: Jenifer Clay MD; Chance Tarango MD Discharge Summary Admission Date Aug 14, 2017 at 3:54 pm Discharge Date: Aug 17, 2017 Admitting Diagnosis A fib with rvr, dsypnea, PTSD, mild confusion. (1) TIA (transient ischemic attack) ICD Code: G45.9 - Transient cerebral ischemic attack, unspecified Diagnosis: Principal (2) Left-sided weakness ICD Code: R53.1 - Weakness Diagnosis: Principal (3) Transient visual loss, left eye ICD Code: H53.122 - Transient visual loss, left eye Diagnosis: Principal (4) Chest pain ICD Code: R07.9 - Chest pain, unspecified Diagnosis: Secondary (5) PTSD (post-traumatic stress disorder) ICD Code: F43.10 - Posttraumatic stress disorder Diagnosis: Secondary Status: Chronic (6) Atrial fibrillation with rapid ventricular response ICD Code: I48.91 - Unspecified atrial fibrillation Diagnosis: Principal Status: Acute Procedures None Brief History - From Admission 67-year-old with PMH of a. fib anticoagulated on Eliquis, DVT, PE, CHF, COPD, chronic back of the right ankle, neuropathy, arterial/peripheral artery insufficiency, and PTSD who presents to the ER with complaints of SOB and not feeling well. Patient was most recently seen in [facility] and treated for a.fib with RVR yesterday. He states yesterday he was in the ED because he felt he had a fast heart rate and he knew he was in fast a. fib rate, he was also experiencing SOB. Today he complains of feeling lousy with left sided weakness , transient left eye vision loss, and not feeling well. He does report having transient vision loss in the past. Recently he feels like his left side is more weak, has been very weak for the past several weeks states it is now worse. He has also noticed he has been dropping objects with left hand for the past day or two, he has also had trouble grasping objects. He also noticed that last night he had trouble reading. He also complains of chest pain that began 2-3 days ago on lower chest, nonradiating. He spoke to his breadman via the phone and he was asked questions regarding chest pain as well. Patient has a history of right ankle surgeries and follows up with Dr. Dominguez for pain management. Patient denies any recent fevers, chills, nausea, vomiting, diarrhea, headaches, or dizziness. CBC/BMP: 08/16/17 0419 08/16/17 0419 Significant Findings Laboratory Tests Test 08/14/17 14:00 08/14/17 20:29 08/15/17 02:34 08/15/17 09:02 Red Blood Count 4.19 MIL/MM3 (4.50-5.90) 3.69 MIL/MM3 (4.50-5.90) Hemoglobin 9.5 GM/DL (13.0-17.0) 8.5 GM/DL (13.0-17.0) Hematocrit 29.9 % (39.0-51.0) 26.3 % (39.0-51.0) Mean Corpuscular Volume 71.5 FL (80.0-100.0) 71.3 FL (80.0-100.0) Mean Corpuscular Hemoglobin 22.8 PG (27.0-34.0) 23.0 PG (27.0-34.0) Mean Corpuscular Hemoglobin Concent 31.9 % (32.0-36.0) Red Cell Distribution Width 20.4 % (11.6-17.2) 20.4 % (11.6-17.2) Monocytes (%) (Auto) 11.5 % (0.0-8.0) Albumin 3.2 GM/DL (3.4-5.0) Calcium Level 8.2 MG/DL (8.5-10.1) 8.1 MG/DL (8.5-10.1) Aspartate Amino Transf (AST/SGOT) 44 U/L (15-37) Troponin I LESS THAN 0.02 NG/ML LESS THAN 0.02 NG/ML LESS THAN 0.02 NG/ML Random Glucose 116 MG/DL (74-106) Sodium Level 132 MEQ/L (136-145) Chloride Level 97 MEQ/L (98-107) Iron Level 35 MCG/DL (65-175) Total Iron Binding Capacity 455 MCG/DL (250-450) Percent Iron Saturation 7.7 % (20-50) Ferritin 6 NG/ML (26-388) Test 08/16/17 04:19 Red Blood Count 3.86 MIL/MM3 (4.50-5.90) Hemoglobin 9.0 GM/DL (13.0-17.0) Hematocrit 27.7 % (39.0-51.0) Mean Corpuscular Volume 71.8 FL (80.0-100.0) Mean Corpuscular Hemoglobin 23.3 PG (27.0-34.0) Red Cell Distribution Width 20.8 % (11.6-17.2) Calcium Level 8.1 MG/DL (8.5-10.1) Sodium Level 134 MEQ/L (136-145) Imaging Last Impressions Carotid Artery Ultrasound 08/15/17 Signed Impressions: CONCLUSION: 1. Right Internal Carotid Artery: Mild bifurcation atherosclerotic plaque with out significant narrowing.. 2. Left Internal Carotid Artery: Mild bifurcation atherosclerotic plaque witho ut significant narrowing. 3. Flow not clearly demonstrated in the left vertebral artery. Head CT 08/14/171302 Signed Impressions: CONCLUSION: 1. Negative noncontrast head CT Chest X-Ray 08/14/171302 Signed Impressions: CONCLUSION: Mass like density in the left lung apex measuring 2.9 x 4.7 cm stable compared to previous exam. The stability would suggest this may be scarring however, thi s should be followed to ensure stability. Chronic interstitial changes and COPD. Head Magnetic Resonance Angiography 08/14/17 Signed Impressions: CONCLUSION: No acute intracranial vascular abnormality is identified. Brain MRI 08/14/17 Signed Impressions: CONCLUSION: 1. No acute intracranial abnormality is identified. 2. There is mild generalized atrophy. PE at Discharge GENERAL: Well-nourished, well-developed male patient in NAD. Ambulating the unit. SKIN: Warm and dry. No rash. HEENT: Normocephalic. Atraumatic. Pupils equal and round. Mucous membranes pink and moist. CARDIOVASCULAR: Irregular bradycardic rate and rhythm. No murmur appreciated. RESPIRATORY: No accessory muscle use. Clear to auscultation. Breath sounds equal bilaterally. GASTROINTESTINAL: Abdomen soft, non-tender, nondistended. Normoactive bowel sounds x4. MUSCULOSKELETAL: No obvious deformities. Extremities without clubbing, cyanosis , or edema. NEUROLOGICAL: Awake and alert. No obvious cranial nerve deficits. Motor grossly within normal limits. Moving all extremities spontaneously. Normal speech. PSYCHIATRIC: Appropriate mood and affect; insight and judgment normal. Pt update on day of discharge Follow-up for syncope, A. fib. Patient reports feeling well today and wants to go home. He states he has an appointment with his new PCP Dr. Tarango this morning at 10 AM. Heart rate improved overnight, no episodes of NSVT on telemetry. He denies any headache, lightheadedness, dizziness, chest pain, palpitations, shortness of breath. He is ambulating the unit without difficulty. Discussed his anemia and recommended follow-up with gastroenterology for further evaluation. He also plans to follow-up with his breadman Dr. Clay. Discussed his new doses of Cardizem and metoprolol, patient verbalized understanding. Hospital Course 67-year-old with PMH of a. fib anticoagulated on Eliquis, DVT, PE, CHF, COPD, chronic pain, neuropathy, PAD, and PTSD who presents to the ER with complaints of SOB and not feeling well. This is patient's third visit in the past 4 days, recently treated in [place] for A. fib with RVR. A. fib with RVR: Patient initially presented with RVR, heart rate on admission 112, EKG with A. fib. Continued patient's anticoagulation with Eliquis. Continued patient's Cardizem and metoprolol, however patient then became bradycardic into 40s with episodes of NSVT. Cardiology consulted, patient known to Dr. Clay, seen by Dr. Oliver, decreased metoprolol dosing to 25 mg bid and Cardizem 240 mg daily. Heart rate improved to 50-70s and no further episodes of NSVT. Cleared for discharge from cardiology standpoint. TIA: Presented with vague neurological complaints, left-sided weakness, transient left eye vision loss, difficulty with memory. Suspect component of dementia. Head CT and brain MRI reviewed, no acute findings. Continued patient' s anticoagulation with Eliquis. Carotid ultrasound with mild plaque, no significant narrowing. PT consult, no physical therapy needed at discharge, recommends wheeled walker. Neurology consulted, appreciate recommendations. 2d Echo with EF 45-50%, moderate TR. Stable for discharge. COPD: Chronic, not an exacerbation, no wheezing on exam. Continue Spiriva, ipratropium nebs every 6 hours while awake and as needed. Stable on room air. Chronic pain -Discussed with patient continuing home medications, will need to follow-up with pain management. PTSD/Anxiety: Continued patient's Klonopin 1 mg 3 times daily, Consulted psychiatry for evaluation, appreciate assistance, recommended outpatient f/up and group therapy sessions. Iron deficiency anemia: Hemoglobin 9.9 upon arrival, decreased to 8.5. Iron studies consistent with iron deficiency. Started on ferrous sulfate 325 mg bid. No complaints of black or bloody stools. CBC improved, hemoglobin 9.0. Recommended outpatient f/up with GI for evaluation of anemia. DVT prophylaxis: Eliquis Pt Condition on Discharge: Stable Discharge Disposition: Discharge Home Discharge Time: <= 30 minutes Discharge Instructions DIET: Follow Instructions for: Heart Healthy Diet Activities you can perform: Regular-No Restrictions Follow up Referrals: Cardiology - 1 Week with Jenifer Clay MD Gastroenterology @ [facility] PCP Follow-up - Today with Chance Tarango MD New Medications: Diltiazem CD 24 HR (Diltiazem CD 24 HR) 240 Mg Caper 240 MG PO DAILY for Regulate Heart Beat for 30 Days, #30 CAP Ferrous Sulfate (Ferosul) 325 Mg (65 Mg Iron) Tablet 325 MG PO BID@12,17 for Build Red Blood Cells for 30 Days, #60 TAB Metoprolol Tartrate (Metoprolol Tartrate) 25 Mg Tab 25 MG PO BID for Regulate Heart Beat for 30 Days, #60 TAB Continued Medications: Albuterol Neb (Albuterol Neb) 2.5 Mg/3 Ml Neb 2.5 MG NEB Q4HR NEB PRN for SHORTNESS OF BREATH, #60 NEBULE 0 Refills Apixaban (Eliquis) 5 Mg Tab 5 MG PO BID for Blood Clot Prevention, #60 TAB 12 Refills Ascorbic Acid (Vitamin C) 1,000 Mg Tablet.er 1000 MG PO DAILY for Nutritional Supplement Clonazepam (Klonopin) 1 Mg Tab 1 MG PO TID for Anxiety, #90 TAB 0 Refills Cyanocobalamin (B12) 1,000 Mcg Tab Lactobacillus Acidophilus (Floranex) 1 Gm Pkt 1 GM PO QID for GI probiotic for 10 Days, #40 PACK Morphine IR (Morphine IR) 15 Mg Tab 15 MG PO Q4HR PRN for PAIN, TAB 0 Refills Multiple Vitamin (Multiple Vitamin) 1 Tab 1 TAB PO DAILY for Nutritional Supplement, TAB 0 Refills Tiotropium Inh (Spiriva Handihaler) 18 Mcg Cap 2 PUFF INH DAILY for COPD, #30 CAP 0 Refills 1 capsule = 18 mcg Discontinued Medications: Diltiazem CD 24 HR (Diltiazem CD 24 HR) 300 Mg Caper 300 MG PO DAILY, #30 CAP 6 Refills Metoprolol Tartrate (Lopressor) 50 Mg Tab 75 MG PO BID, #90 TAB 0 Refills Veronica Cornejo PA-C Aug 17, 2017 8:53 am
[2017-08-17] MEDS ORDERED: DILTIAZEM-CD 240 MG CAP ER PO SCH (09:00)
[2017-08-17] MEDS: clonazePAM 1 MG TAB PO SCH (09:09)
[2017-08-17] MEDS: ASCORBIC ACID 500 MG TAB PO SCH (09:09)
[2017-08-17] MEDS: MULTIVITAMIN TAB PO SCH (09:09)
[2017-08-17] MEDS: APIXABAN 5 MG TABLET PO SCH (09:09)
[2017-08-17] MEDS: SODIUM CHLORIDE 0.9% FLUSH 10 ML FLUSH IV FLUSH SCH (09:10)
[2017-08-17] MEDS: TIOTROPIUM BROMIDE 18 MCG INH INH SCH (09:10)
[2017-08-17] MEDS: METOPROLOL TARTRATE 25 MG TAB PO SCH (09:10)
== END 2017-08-17 10:41 | disposition home or self-care (01) ==
LOC: NEPE 12:24 → NEDA 15:54 → NEPGCP 16:23
PROVIDERS: ADMIT Family Medicine; ATTEND Family Medicine
DX: G45.9 Transient cerebral ischemic attack, unspecified (principal); R53.1 Weakness; H53.122 Transient visual loss, left eye; R07.89 Other chest pain; F43.10 Post-traumatic stress disorder, unspecified; I48.2 Chronic atrial fibrillation; I11.0 Hypertensive heart disease with heart failure; I50.9 Heart failure, unspecified; D50.9 Iron deficiency anemia, unspecified; J44.9 Chronic obstructive pulmonary disease, unspecified; I73.00 Raynaud's syndrome without gangrene; G62.9 Polyneuropathy, unspecified; R06.02 Shortness of breath; G89.29 Other chronic pain; M19.90 Unspecified osteoarthritis, unspecified site; Z87.891 Personal history of nicotine dependence; Z79.01 Long term (current) use of anticoagulants; Z86.718 Personal history of other venous thrombosis and embolism; B19.20 Unspecified viral hepatitis C without hepatic coma; E07.9 Disorder of thyroid, unspecified
CPT/HCPCS: 70450; 70544; 70551; 71045; 80048; 80053; 82550; 82552; 82728; 83540; 83550; 84484; 85025; 93005; 93306; 93880; 94640; 94664; 96374; 96375; 97162; 99285; G0378; G8987; G8988; J2060; J2930; J7644

== ENCOUNTER 2017-09-03 11:54 | Inpatient (IN) | payer MEDICAID, MEDICARE ==
[~2017-09-03] VITALS: Ht 175.3 cm; Wt 62.0 kg
[~2017-09-03 11:54] MED LIST changes: +DILT240C44 PO; -DILT300C3 PO; +FERR325T20 PO; -METO-309 PO; +METO25TA3 PO
[2017-09-03] MEDS ORDERED: IODIXANOL 320 MG/ML 10 ML VIAL (for Rad CT) IVCONTRAST ONE (11:55)
[2017-09-03 12:02] VITALS: BP 162/73; PULSE 122; RESP 17; TEMP 98.9; O2SAT 100
[2017-09-03] MEDS ORDERED: SODIUM CHLOR 0.9% 1000 ML INJ 1,000 ML IV ONE (12:17)
[2017-09-03 12:20] VITALS: O2SAT 99
[2017-09-03 12:29] VITALS: BP 131/88; PULSE 128; RESP 18; O2SAT 98
[2017-09-03 12:41] LABS: AUTOMATED NEUTROPHIL # 3.4 TH/MM3 (1.8-7.7); BASOPHIL # 0.1 TH/MM3 (0-0.2); BASOPHIL % 1.1 % (0.0-2.0); EOSINOPHIL # 0.1 TH/MM3 (0-0.4); EOSINOPHIL % 1.5 % (0.0-4.0); HEMATOCRIT 34.3 % (39.0-51.0); HEMOGLOBIN 10.7 GM/DL (13.0-17.0); LYMPH % 30.9 % (9.0-44.0); LYMPHOCYTE # 1.9 TH/MM3 (1.0-4.8); MEAN CORPUSCULAR HEMOGLOBIN 23.5 PG (27.0-34.0); MEAN CORPUSCULAR HGB CONC 31.3 % (32.0-36.0); MEAN PLATELET VOLUME 7.6 FL (7.0-11.0); MONOCYTE # 0.6 TH/MM3 (0-0.9); NEUT % 56.5 % (16.0-70.0); PLATELET COUNT 349 TH/MM3 (150-450); RED BLOOD COUNT 4.58 MIL/MM3 (4.50-5.90); RED CELL DISTRIBUTION WIDTH 22.9 % (11.6-17.2)
--- NOTE | 2017-09-03 12:44 | RADRPT ---
EXAM DATE: 09/03/2017 12:37 PM EDT AGE/SEX: 67 years / Male INDICATIONS: Stroke alert; aphasia. CLINICAL DATA: This is the patient's initial encounter. Patient reports that signs and symptoms have been present for 1 day and indicates a pain score of Nonresponsive. MEDICAL/SURGICAL HISTORY: Non-responsive. Non-responsive. RADIATION DOSE: 56.35 CTDI (mGy) COMPARISON: [facility] – [place], CT BRAIN W/O CONTRAST, 08/14/2017. . Report was called by [ ] TECHNIQUE: CT of the head without contrast. Using automated exposure control and adjustment of the mA and/or kV according to patient size, radiation dose was kept as low as reasonably achievable to ob tain optimal diagnostic quality images. DICOM format image data is available electronically for revi ew and comparison. FINDINGS: Cerebrum: The ventricles are normal for age. No evidence of midline shift, mass lesion, hemorrhage or acute infarction. No extraaxial fluid collections are seen. Posterior Fossa: The cerebellum and brainstem are intact. The 4th ventricle is midline. The cerebe llopontine angle is unremarkable. Extracranial: The visualized portion of the orbits is intact. Skull: The calvaria is intact. No evidence of skull fracture. CONCLUSION: 1. Negative noncontrast head CT. Electronically signed by: James Pugh MD 09/03/2017 12:43 PM EDT
[2017-09-03 12:49] LABS: INTERNATIONAL NORMALIZED RATIO 1.4 RATIO; PROTHROMBIN TIME - PATIENT 14.3 SEC (9.8-11.6)
--- NOTE | 2017-09-03 13:07 | RADRPT ---
EXAM DATE: 09/03/2017 12:59 PM EDT AGE/SEX: 67 years / Male INDICATIONS: Stroke alert; aphasia. CLINICAL DATA: This is the patient's initial encounter. Patient reports that signs and symptoms have been present for 1 day and indicates a pain score of Nonresponsive. MEDICAL/SURGICAL HISTORY: Non-responsive. Non-responsive. RADIATION DOSE: 10.22 CTDI (mGy) COMPARISON: No prior exams available for comparison. TECHNIQUE: Volumetric scanning was performed using a multi-row detector CT scanner during bolus infu nolvia of 80 ml Visipaque 320 (iodixanol) nonionic water-soluble contrast as a cumulative dose for mul tiple exams. The data was post processed with a variety of visualization algorithms including full volume maximum intensity projection, multi-planar sliding thin slab reformation, curved planar reform ation, and surface rendering techniques. Using automated exposure control and adjustment of the mA a nd/or kV according to patient size, radiation dose was kept as low as reasonably achievable to obtain optimal diagnostic quality images. DICOM format image data is available electronically for review a nd comparison. FINDINGS: The proximal internal carotids are widely patent. There is mild atherosclerotic plaquing at the bifur cations. The right vertebral is patent throughout its course. The left vertebral is diminutive in size. The basilar is small but patent. Both distal internal carotids are widely patent. The appearance of the anterior and middle cerebral c irculation is within normal limits. No large or central vessel occlusion is identified. The posterior cerebral circulation is widely patent. CONCLUSION: 1. The intracranial circulation appears widely patent. No large or central vessel occlusion identifi ed. 2. Incidental note made of a diminutive left vertebral artery. 3. CT angiography of the neck is pending. 4. Results were called directly to Dr. Andrew Chaney at 1:00 PM. Electronically signed by: Regis Moreno MD 09/03/2017 1:05 PM EDT
[2017-09-03] MEDS: SODIUM CHLOR 0.9% 1000 ML INJ 1,000 ML IV SCH (13:10)
[2017-09-03 13:14] VITALS: BP 128/89; PULSE 110; RESP 25; O2SAT 100
[2017-09-03 13:16] LABS: TROPONIN I LESS THAN 0.02 NG/ML (0.02-0.05)
--- NOTE | 2017-09-03 13:49 | MB ---
cc: Andrew Chaney MD DATE: 09/03/2017 HISTORY OF PRESENT ILLNESS: The patient is a 67-year-old man seen by Dr. Amor on 08/15/2017 with a history of known chronic AFib, COPD. He was having confusion, not responding properly to his , headache over his left eye, numbness in the left arm, noted to have a history of PTSD, DVT, PE, COPD, peripheral vascular disease, left upper lobe abnormality, Dr. Maria, stress test 2009, large fixed inferior deficit. He was on Eliquis 5 b.i.d. MRI of the brain did not show anything acute. MRA [facility] [place] was negative for acute. I recommended continuing his Eliquis. Nevertheless, the patient was evidently seen well this morning at about 9 a.m. and then about 12 p.m. or so, he was noted to have some left-sided weakness and unable to talk well, and came into the hospital. He tells me he has been taking his Eliquis 5 mg b.i.d. and has not missed any doses. A stroke alert was called. He says he has not been overly depressed or taken too many pills. He has got a history of PTSD. A small dose of Klonopin had been recommended by the psychiatrist when he was last in the hospital. When he was in earlier this month, he felt that he was weaker on the left side. He has had some history of neuropathy. MEDICATIONS IN THE PAST: Diltiazem, Floranex, Eliquis 5 b.i.d., Lopressor, B12, Klonopin 1 mg t.i.d., vitamin C, morphine. ALLERGIES: CODEINE, KETOCONAZOLE. FAMILY HISTORY: Mother with heart disease, Buerger disease. SOCIAL HISTORY: Quit smoking about a month ago. No alcohol. Lives with his . PHYSICAL EXAMINATION: VITAL SIGNS: Today, afebrile, heart rate , 131/88. NECK: There were no carotid bruits. HEART: Regular rate and rhythm. I did not detect a murmur. NEUROLOGIC: The pupils are equal. Visual martinez appear to be full. He has got a slight left facial droop. Tongue was midline. Speech was a little slurred, but not aphasic. He was able to name well. He has got a left-sided drift. Best testing is about a 4/5 in the left upper extremity, 5/5 on the right, 5/5 on the right lower extremity, about a 4 to 4+ on the left lower extremity. NIH stroke scale is an 8/10. I note he has some left hemisensory loss to pinprick. LABORATORY AND DIAGNOSTIC DATA: His CBC today essentially normal. He had a sed rate done that was normal in 2016. Hepatitis screen has been reactive in the past. Hepatitis C RNA elevated in 2016. Rheumatoid factor and ENRIQUE has been normal in the past. UA in July of this year was normal. Urine drug screen positive for benzos in the past. Alcohol level in the past has been elevated, but none done recently. His basic metabolic profile today is normal. His CPK and troponin earlier this month were normal. His LDL cholesterol was normal in 2016. Thyroid study was normal in 2017. Coag today, his PTT is 32, INR 14.3. ABG was normal back in 2017. CTA of the neck and [facility] [place] today is normal except he is right vertebral dominant. CT scan of the brain was read as negative. He had a carotid ultrasound last admission that was normal, although no flow in the left vertebral artery. CTA suggested possible chronic PA. Head MRA last admission was read as normal. Head CTA last admission was read as normal. Brain MRI 08/14/2017 was read as negative. My review of those films, the brain MRI was normal and the MRA of the [facility] [place] showed that he was right vertebral dominant earlier this month. The CT of the brain today was negative as was CTA as noted. Review of the CT films from today was normal. He had an echocardiogram done on 09/12/2017, showed a normal ejection fraction, slightly low to 45-50%. Left atrial size was normal. Mitral and aortic valves were negative. IMPRESSION: Possibly a stroke here. Certainly presents that way, although he presented somewhat that way a month ago. He denies any increased depression here. PLAN: We could check an EEG on him, and we will check an MRI. He is not a TPA candidate due to the fact he is on Eliquis. At this point, we could either switch him to Coumadin or Xarelto as this is the second time he has come in with stroke-like symptoms on the Eliquis. MD BRENTON Sanchez/GERRI , 01:12 PM , 01:47 PM
--- NOTE | 2017-09-03 13:55 | RADRPT ---
EXAM DATE: 09/03/2017 1:40 PM EDT AGE/SEX: 67 years / Male INDICATIONS: Stroke alert; aphasia. CLINICAL DATA: This is the patient's initial encounter. Patient reports that signs and symptoms have been present for 1 day and indicates a pain score of Nonresponsive. MEDICAL/SURGICAL HISTORY: Non-responsive. Non-responsive. RADIATION DOSE: 10.22 CTDI (mGy) COMPARISON: No prior exams available for comparison. TECHNIQUE: Volumetric scanning was performed using a multirow detector CT scanner during bolus infus ion of 80 ml Visipaque 320 (iodixanol) nonionic water-soluble contrast as a cumulative dose for mult iple exams. The data was postprocessed with a variety of visualization algorithms including full-vo lume maximum intensity projection, multiplanar sliding thin-slab reformation, curved-planar reformati on, and surface-rendering techniques. Using automated exposure control and adjustment of the mA and/ or kV according to patient size, radiation dose was kept as low as reasonably achievable to obtain op timal diagnostic quality images. DICOM format image data is available electronically for review and comparison. Elevated flow velocities and ICA/CCA ratios have been found to correlate with increased degrees of ve ssel stenosis, calculated as percentage of diameter relative to a normal segment of distal ICA/CCA. FINDINGS: The tubular portion of the ascending aorta is dilated at 3.9 cm. The left vertebral originates direct ly from the arch and is diminutive in caliber. The origins of the great vessels are otherwise widely patent. Right carotid: The right common carotid is widely patent. There is mild atherosclerotic plaquing at t he bifurcation. The internal carotid and external carotid are widely patent throughout their course. Left carotid: The left common carotid is widely patent. There is mild atherosclerotic plaquing at the bifurcation. The internal carotid and external carotid are widely patent. Vertebral circulation: The right vertebral is a sizable artery and originates normally from the subcl franky. The left vertebral is diminutive in size and originates directly from the arch. Both are paten t. CONCLUSION: 1. Minimal atherosclerotic plaquing at the carotid bifurcations. The carotid circulation is otherwis e widely patent 2. The left vertebral originates directly from the arch and is diminutive in size. The right vertebr al originates normally from the subclavian and is widely patent throughout its course. Electronically signed by: Regis Moreno MD 09/03/2017 1:54 PM EDT
--- NOTE | 2017-09-03 15:00 | PD ---
HPI Chief Complaint: Neuro Symptoms/ Deficits Time Seen by Provider: 12:09 Travel History International Travel<30 days: No Contact w/Intl Traveler<30days: No Traveled to known affect area: No History of Present Illness HPI Patient is a 67-year-old male who comes in with complaints of difficulty with word finding, vision problems, weakness. He was here a few weeks ago with a TIA , discharged on August 17. Is on Eliquis for A. fib. He is unsure exactly when the symptoms started. His says that they were having coffee at 9 AM and he was normal. He denies any chest pain or shortness of breath. He denies any headache. Denies any nausea or vomiting. He reports compliance with his medications. Severity is moderate. PFSH Past Medical History Hx Anticoagulant Therapy: Yes (ELIQUIS) Arthritis: No Asthma: No Atrial Fibrillation: Yes Autoimmune Disease: No Blood Disorders: No Anxiety: Yes Depression: Yes Heart Rhythm Problems: Yes (a fib) Cancer: No Cardiovascular Problems: Yes High Cholesterol: No Chemotherapy: No Chest Pain: No Congestive Heart Failure: No COPD: Yes Cerebrovascular Accident: No Diabetes: No Diminished Hearing: No Deep Vein Thrombosis: Yes (RLE) Endocrine: Yes Gastrointestinal Disorders: Yes (pancreatitis) GERD: No Glaucoma: No Genitourinary: No Headaches: No Hepatitis: Yes (hep C) Hiatal Hernia: No Heparin Induced Thrombocytopen: No Hypertension: Yes Immune Disorder: No Implanted Vascular Access Dvce: Yes Kidney Stones: No Musculoskeletal: Yes (R ankle surgery) Neurologic: Yes Psychiatric: Yes Reproductive: No Respiratory: Yes (COPD, emphysema, pneumonia ) Immunizations Current: Yes Migraines: No Myocardial Infarction: No Pancreatitis: Yes Pneumonia: Yes Radiation Therapy: No Renal Failure: No Seizures: No Sickle Cell Disease: No Sleep Apnea: No Thyroid Disease: Yes (borerline overactive) Ulcer: No Past Surgical History Abdominal Surgery: No AICD: No Appendectomy: No Arteriovenous Shunt: No Body Medical Devices: screws/pins in R ankle, metal in right femor into iliac crest Cardiac Surgery: No Cholecystectomy: No Ear Surgery: No Endocrine Surgery: No Eye Surgery: Yes (cataract L eye surg) Genitourinary Surgery: No Gynecologic Surgery: No Hysterectomy: Yes (AFIB/ HBP) Insulin Pump: No Joint Replacement: No Neurologic Surgery: No Oral Surgery: No Pacemaker: No Thoracic Surgery: No Tonsillectomy: Yes Other Surgery: Yes (left eye ) Social History Alcohol Use: No Tobacco Use: No Substance Use: No Allergies-Medications (Allergen,Severity, Reaction): Coded Allergies: codeine (Verified Allergy, Severe, TURN RED, SOB, HIVES, 09/03/17) ketoconazole (Verified Allergy, Intermediate, Rash, 09/03/17) ITCHING Reported Meds & Prescriptions Reported Meds & Active Scripts Active Ferosul (Ferrous Sulfate) 325 Mg (65 Mg Iron) Tablet 325 Mg PO BID@12,17 30 Days Diltiazem CD 24 HR 240 Mg Caper 240 Mg PO DAILY 30 Days Floranex (Lactobacillus Acidophilus) 1 Gm Pkt 1 Gm PO QID 10 Days Eliquis (Apixaban) 5 Mg Tab 5 Mg PO BID Reported Metoprolol Tartrate 50 Mg Tab 50 Mg PO BID B12 (Cyanocobalamin) 1,000 Mcg Tab Klonopin (Clonazepam) 1 Mg Tab 1 Mg PO TID Vitamin C (Ascorbic Acid) 1,000 Mg Tablet.er 1,000 Mg PO DAILY Spiriva Handihaler (Tiotropium Inh) 18 Mcg Cap 2 Puff INH DAILY 1 capsule = 18 mcg Morphine IR (Morphine Sulfate) 15 Mg Tab 15 Mg PO Q4HR PRN Multiple Vitamin 1 Tab 1 Tab PO DAILY Review of Systems Except as stated in HPI: all other systems reviewed are Neg General / Constitutional: No: Fever, Chills Eyes: Positive: Blurred Vision HENT: No: Headaches Cardiovascular: No: Chest Pain or Discomfort Respiratory: No: Shortness of Breath Gastrointestinal: No: Nausea, Vomiting Skin: No Change in Pigmentation Neurologic: Positive: Weakness, Slurred Speech Physical Exam Narrative GENERAL: Awake and alert, no acute distress. SKIN: Focused skin assessment warm/dry. No wounds or signs of infection. HEAD: Atraumatic. Normocephalic. EYES: Pupils equal and round. No scleral icterus. Extraocular movements intact. ENT: Mucous membranes pink and moist. NECK: Trachea midline. No JVD. CARDIOVASCULAR: Regular rate and rhythm. No murmur appreciated. RESPIRATORY: No accessory muscle use. Clear to auscultation. Breath sounds equal bilaterally. GASTROINTESTINAL: Abdomen soft, non-tender, nondistended. MUSCULOSKELETAL: No obvious deformities. No clubbing. No cyanosis. No edema. NEUROLOGICAL: Awake and alert. Left-sided facial droop. Debubblizer strength and strength of the left leg are decreased compared to the right. Difficulty with word finding. PSYCHIATRIC: Appropriate mood and affect; insight and judgment normal. Data Data Last Documented VS Vital Signs Date Time Temp Pulse Resp B/P (MAP) Pulse Ox O2 Delivery O2 Flow Rate FiO2 09/03/17 13:14 110 25 128/89 (102) 100 Nasal Cannula 2.00 09/03/17 12:02 98.9 Orders Orders Diet Npo (09/03/17 Lunch) Activity Bed Rest (09/03/17 ) Electrocardiogram (09/03/17 ) I-Stat Profile (09/03/17 12:17) Prothrombin Time / Inr (Pt) (09/03/17 12:17) Act Partial Throm Time (Ptt) (09/03/17 12:17) Complete Blood Count With Diff (09/03/17 12:17) Fibrinogen (09/03/17 12:17) Creatine Kinase (Cpk) (09/03/17 12:17) Troponin I (09/03/17 12:17) Ua Includes Microscopic (09/03/17 12:17) Drug Screen, Random Urine (09/03/17 12:17) Type And Screen (09/03/17 12:17) Ct Brain W/O Iv Contrast(Rout) (09/03/17 ) Cta Brain W Iv Contrast W 3d (09/03/17 12:17) Cta Neck W Iv Contrast W 3d (09/03/17 12:17) Consult Neurology (09/03/17 ) Blood Glucose (09/03/17 12:17) Ecg Monitoring (09/03/17 12:17) Neuro Checks Q2HX12,Q4H (09/03/17 12:17) Nursing Bedside Swallow Assess .ONCE (09/03/17 12:17) Iv Access Insert/Monitor (09/03/17 12:17) NPO (09/03/17 12:17) Oximetry (09/03/17 12:17) Resp Oxygen Nc Stroke (09/03/17 ) Sodium Chlor 0.9% 1000 Ml Inj (Ns 1000 M (09/03/17 12:17) Cath For Specimen (09/03/17 12:17) (Hub Use Only)Inp Phy Cons/Ref (09/03/17 ) Vascular Access Team Consult/P PRN (09/03/17 12:37) Vascular Poc Ultrasound (09/03/17 ) Iodixanol 320 Inj (Rad Ct) (Visipaque 32 (09/03/17 11:55) Westergren Sedimentation Rate (09/03/17 13:10) Thyroid Stimulating Hormone (09/03/17 13:10) Free Thyroxine (T4) (09/03/17 13:10) Vitamin B1 (Thiamine) (09/03/17 13:10) Vitamin B12 (09/03/17 13:10) Mri Brain W&W/O Contrast (09/03/17 13:10) Eeg Study (09/03/17 13:10) Office Rn / Telemetry JOHAN.Q8H (09/03/17 13:10) ^ Seizure Precautions (09/03/17 13:10) [place] (09/03/17 13:10) ^ Other Nursing Orders (09/03/17 13:10) Sodium Chlor 0.9% 1000 Ml Inj (Ns 1000 M (09/03/17 13:10) ^ Other Nursing Orders (09/03/17 13:10) Consult Pt Eval & Treat (09/03/17 13:10) Scd&Teds Bilateral/Knee High JOHAN.QSHIFT (09/03/17 13:10) Admit Order (Ed Use Only) (09/03/17 ) Labs Laboratory Tests Test 09/03/17 12:25 White Blood Count 6.0 TH/MM3 Red Blood Count 4.58 MIL/MM3 Hemoglobin 10.7 GM/DL Bedside Hemoglobin 11.6 G/DL Hematocrit 34.3 % Bedside Hematocrit 34.0 % Mean Corpuscular Volume 75.0 FL Mean Corpuscular Hemoglobin 23.5 PG Mean Corpuscular Hemoglobin Concent 31.3 % Red Cell Distribution Width 22.9 % Platelet Count 349 TH/MM3 Mean Platelet Volume 7.6 FL Neutrophils (%) (Auto) 56.5 % Lymphocytes (%) (Auto) 30.9 % Monocytes (%) (Auto) 10.0 % Eosinophils (%) (Auto) 1.5 % Basophils (%) (Auto) 1.1 % Neutrophils # (Auto) 3.4 TH/MM3 Lymphocytes # (Auto) 1.9 TH/MM3 Monocytes # (Auto) 0.6 TH/MM3 Eosinophils # (Auto) 0.1 TH/MM3 Basophils # (Auto) 0.1 TH/MM3 CBC Comment DIFF FINAL Differential Comment Prothrombin Time 14.3 SEC Prothromb Time International Ratio 1.4 RATIO Activated Partial Thromboplast Time 32.3 SEC Fibrinogen 291 mg/dL Bedside Sodium 136 MMOL/L Bedside Potassium 4.7 MMOL/L Bedside Chloride 100 MMOL/L Bedside Blood Urea Nitrogen 10 MG/DL Bedside Creatinine 0.8 MG/DL Bedside Glucose 98 MG/DL Total Creatine Kinase 159 U/L Troponin I LESS THAN 0.02 NG/ML MDM Medical Decision Making Medical Screen Exam Complete: Yes Emergency Medical Condition: Yes Medical Record Reviewed: Yes Interpretation(s) ECG shows A. fib at a rate of 118 Differential Diagnosis CVA versus TIA versus ICH Narrative Course Patient is a 67-year-old male who comes in with neurologic symptoms. Exam shows left-sided facial droop as well as left-sided weakness. Stroke alert issued. IV established, labs sent. Patient taken to CT. CT head shows no bleed. Patient is not a candidate for TPA as he is on Eliquis. Labs show no acute abnormalities. Neurology consulted. CTA of the head and neck performed. Patient will be admitted for further management. Last 24 hours Impressions Neck CTA 09/03/171216 Signed Impressions: CONCLUSION: 1. Minimal atherosclerotic plaquing at the carotid bifurcations. The carotid c irculation is otherwise widely patent 2. The left vertebral originates directly from the arch and is diminutive in s ize. The right vertebral originates normally from the subclavian and is widely patent throughout its course. Head CTA 09/03/17 1217 Signed Impressions: CONCLUSION: 1. The intracranial circulation appears widely patent. No large or central ves oswaldo occlusion identified. 2. Incidental note made of a diminutive left vertebral artery. 3. CT angiography of the neck is pending. 4. Results were called directly to Dr. Andrew Chaney at 1:[address] 09/03/17 0000 Signed Impressions: CONCLUSION: 1. Negative noncontrast head CT. Diagnosis Primary Impression: CVA (cerebral vascular accident) Qualified Codes: I63.9 - Cerebral infarction, unspecified Admitting Information Admitting Physician Requests: Admit Sigrid Garcia MD Sep 03, 2017 15:00
--- NOTE | 2017-09-03 15:23 | HHI.HP ---
HPI Service [facility] Hospitalists Primary Care Physician Chance Tarango MD Admission Diagnosis CVA Diagnoses: (1) Left-sided weakness (2) CVA (cerebral vascular accident) (3) Atrial fibrillation (4) Hypertension Chief Complaint: slurred speech with left-sided weakness Travel History International Travel<30 Days: No Contact w/Intl Traveler <30 Da: No Traveled to Known Affected Are: No History of Present Illness 67-year-old man past medical history of atrial fibrillation, COPD, hypertension , PTSD, and recently admitted to [place] on August 14, 2017 for TIA, during which hospitalization neurology was consulted and patient had unremarkable/negative head CT and brain MRI presented today for evaluation of worsening left-sided weakness associated with slurred speech which started around 9 AM until 12 PM. Patient presented as a stroke alert for which neurology was consulted however no TPA provided. Initial head CT negative. Patient states he was recently seen by cardiology and had a Holter monitor performed. He is currently on Eliquis for atrial fibrillation. Patient is also on chronic narcotics. He has no chest pain or shortness of breath, and during my exam reported an improvement of his speech however continue to have left-sided weakness. Review of Systems Except as stated in HPI: all other systems reviewed are Neg Past Family Social History Past Medical History Atrial fibrillation COPD HTN history of aspiration pneumonia Chronic back pain Neuropathy Arterial insufficiency/peripheral artery disease PTSD PE DVT Past Surgical History Multiple joint surgeries left eye surgery tonsillectomy Reported Medications Ferosul (Ferrous Sulfate) 325 Mg (65 Mg Iron) Tablet 325 Mg PO BID@12,17 30 Days Metoprolol Tartrate 25 Mg Tab 25 Mg PO BID 30 Days Diltiazem CD 24 HR 240 Mg Caper 240 Mg PO DAILY 30 Days Albuterol Neb (Albuterol Sulfate) 2.5 Mg/3 Ml Neb 2.5 Mg NEB Q4HR NEB PRN Floranex (Lactobacillus Acidophilus) 1 Gm Pkt 1 Gm PO QID 10 Days Eliquis (Apixaban) 5 Mg Tab 5 Mg PO BID Reported B12 (Cyanocobalamin) 1,000 Mcg Tab Klonopin (Clonazepam) 1 Mg Tab 1 Mg PO TID Vitamin C (Ascorbic Acid) 1,000 Mg Tablet.er 1,000 Mg PO DAILY Spiriva Handihaler (Tiotropium Inh) 18 Mcg Cap 2 Puff INH DAILY 1 capsule = 18 mcg Morphine IR (Morphine Sulfate) 15 Mg Tab 15 Mg PO Q4HR PRN Multiple Vitamin 1 Tab 1 Tab PO DAILY Allergies: Coded Allergies: codeine (Verified Allergy, Severe, TURN RED, SOB, HIVES, 09/03/17) ketoconazole (Verified Allergy, Intermediate, Rash, 09/03/17) ITCHING Family History Mother: Heart disease, Buerger's disease, cancer Social History Tobacco: Quit 1 month ago, was smoking 3 ciggs previously Alcohol: Denies Illicit drug use: Denies Physical Exam Vital Signs Vital Signs Date Time Temp Pulse Resp B/P (MAP) Pulse Ox O2 Delivery O2 Flow Rate FiO2 09/03/17 13:14 110 25 128/89 (102) 100 Nasal Cannula 2.00 09/03/17 12:29 128 18 131/88 (102) 98 Room Air 09/03/17 12:20 99 2.00 09/03/17 12:02 98.9 122 17 162/73 (102) 100 Physical Exam GENERAL: This is a well-nourished, well-developed patient, in no apparent distress. SKIN: No rashes, ecchymoses or lesions. Cool and dry. HEAD: Atraumatic. Normocephalic. No temporal or scalp tenderness. EYES: Pupils equal round and reactive. Extraocular motions intact. No scleral icterus. No injection or drainage. ENT: Nose without bleeding, purulent drainage or septal hematoma. Throat without erythema, tonsillar hypertrophy or exudate. Uvula midline. Airway patent. NECK: Trachea midline. No JVD or lymphadenopathy. Supple, nontender, no meningeal signs. CARDIOVASCULAR: Regular rate and rhythm without murmurs, gallops, or rubs. RESPIRATORY: Clear to auscultation. Breath sounds equal bilaterally. No wheezes , rales, or rhonchi. GASTROINTESTINAL: Abdomen soft, non-tender, nondistended. No hepato-splenomegaly , or palpable masses. No guarding. MUSCULOSKELETAL: Extremities without clubbing, cyanosis, or edema. No joint tenderness, effusion, or edema noted. No calf tenderness. Negative Homans sign bilaterally. NEUROLOGICAL: Awake and alert. Cranial nerves II through XII intact. Motor and sensory grossly within normal limits. Five out of 5 muscle strength in all muscle groups. Normal speech. Laboratory Laboratory Tests Test 09/03/17 12:25 White Blood Count 6.0 Red Blood Count 4.58 Hemoglobin 10.7 Bedside Hemoglobin 11.6 Hematocrit 34.3 Bedside Hematocrit 34.0 Mean Corpuscular Volume 75.0 Mean Corpuscular Hemoglobin 23.5 Mean Corpuscular Hemoglobin Concent 31.3 Red Cell Distribution Width 22.9 Platelet Count 349 Mean Platelet Volume 7.6 Neutrophils (%) (Auto) 56.5 Lymphocytes (%) (Auto) 30.9 Monocytes (%) (Auto) 10.0 Eosinophils (%) (Auto) 1.5 Basophils (%) (Auto) 1.1 Neutrophils # (Auto) 3.4 Lymphocytes # (Auto) 1.9 Monocytes # (Auto) 0.6 Eosinophils # (Auto) 0.1 Basophils # (Auto) 0.1 CBC Comment DIFF FINAL Differential Comment Prothrombin Time 14.3 Prothromb Time International Ratio 1.4 Activated Partial Thromboplast Time 32.3 Fibrinogen 291 Bedside Sodium 136 Bedside Potassium 4.7 Bedside Chloride 100 Bedside Blood Urea Nitrogen 10 Bedside Creatinine 0.8 Bedside Glucose 98 Total Creatine Kinase 159 Troponin I LESS THAN 0.02 Result Diagram: 09/03/17 1225 Caprini VTE Risk Assessment Caprini VTE Risk Assessment: Mod/High Risk (score >= 2) Caprini Risk Assessment Model Point Value = 1 Point Value = 2 Point Value = 3 Point Value = 5 Age 41-60 Minor surgery BMI > 25 kg/m2 Swollen legs Varicose veins or History of unexplained or recurrent spontaneous Oral contraceptives or hormone replacement Sepsis (< 1 month) Serious lung disease, including pneumonia (< 1 month) Abnormal pulmonary function Acute myocardial infarction Congestive heart failure (< 1 month) History of inflammatory bowel disease Medical patient at bed rest Age 61-74 Arthroscopic surgery Major open surgery (> 45 min) Laparoscopic surgery (> 45 min) Malignancy Confined to bed (> 72 hours) Immobilizing plaster cast Central venous access Age >= 75 History of VTE Family history of VTE Factor V Leiden Prothrombin [id number] Lupus anticoagulant Anticardiolipin antibodies Elevated serum homocysteine Heparin-induced thrombocytopenia Other congenital or acquired thrombophilia Stroke (< 1 month) Elective arthroplasty Hip, pelvis, or leg fracture Acute spinal cord injury (< 1 month) Prophylaxis Regimen Total Risk Factor Score Risk Level Prophylaxis Regimen 0-1 Low Early ambulation 2 Moderate Order ONE of the following: *Sequential Compression Device (SCD) *Heparin 5000 units SQ BID 3-4 Higher Order ONE of the following medications: *Heparin 5000 units SQ TID *Enoxaparin/Lovenox 40 mg SQ daily (WT < 150 kg, CrCl > 30 mL/min) *Enoxaparin/Lovenox 30 mg SQ daily (WT < 150 kg, CrCl > 10-29 mL/min) *Enoxaparin/Lovenox 30 mg SQ BID (WT < 150 kg, CrCl > 30 mL/min) AND/OR *Sequential Compression Device (SCD) 5 or more Highest Order ONE of the following medications: *Heparin 5000 units SQ TID (Preferred with Epidurals) *Enoxaparin/Lovenox 40 mg SQ daily (WT < 150 kg, CrCl > 30 mL/min) *Enoxaparin/Lovenox 30 mg SQ daily (WT < 150 kg, CrCl > 10-29 mL/min) *Enoxaparin/Lovenox 30 mg SQ BID (WT < 150 kg, CrCl > 30 mL/min) AND *Sequential Compression Device (SCD) Assessment and Plan Problem List: (1) TIA (transient ischemic attack) ICD Code: G45.9 - Transient cerebral ischemic attack, unspecified (2) CVA (cerebral vascular accident) ICD Code: I63.9 - Cerebral infarction, unspecified Status: Acute Assessment and Plan 67-year-old man with Ischemic CVA vs TIA? -Start statin therapy -NIHSS, Neuro checks, Monitor on telemetry -PT/OT/ST evaluations, consult rehab medicine -allow permissive HTN, IV Vasotec and IV labetalol if SBP >220 -Check lipid profile and HgbA1c -Check carotid U/S -Head CT 09/03/17 noted and review by me with No acute intracranial disease -Check brain MRI -Check echocardiogram and place Holter monitoring -Neurology consultation appreciated -Patient already on Eliquis however secondary to the fact that he has had TIAs, stroke already on that medication, will switch to Xarelto -EEG noted and unremarkable A. fib with RVR -Resume diltiazem, metoprolol 75 mg twice daily however start Xarelto instead of Eliquis COPD -no exacerbation -Resume Spiriva, ipratropium nebs every 6 hours while awake and as needed -Supplemental oxygen to keep saturations between 88-92% Chronic pain -Resume outpatient management PTSD Anxiety -Resume Klonopin 1 mg 3 times daily Code Status Full code Discussed Condition With ED physician, patient Physician Certification 2 Midnight Certification Type: Admission for Inpatient Services Order for Inpatient Services The services are ordered in accordance with Medicare regulations or non- Medicare payer requirements, as applicable. In the case of services not specified as inpatient-only, they are appropriately provided as inpatient services in accordance with the 2-midnight benchmark. Estimated LOS (days): 2 days is the estimated time the patient will need to remain in the hospital, assuming treatment plan goals are met and no additional complications. Post-Hospital Plan: Not yet determined Problem Qualifiers (1) CVA (cerebral vascular accident): Qualified Codes: I63.9 - Cerebral infarction, unspecified Willie Tomas MD Sep 03, 2017 15:23
[2017-09-03] MEDS ORDERED: RESP: ALBUTEROL 2.5 MG/IPRATROPIUM 0.5 MG NEB (PRN) NEB (15:30)
[2017-09-03 15:34] VITALS: BP 132/64; PULSE 93; RESP 16; O2SAT 100
[2017-09-03] MEDS ORDERED: METO50TA PO (15:37)
[2017-09-03 16:10] LABS: BILIRUBIN, URINE NEG (NEG); BLOOD, URINE NEG (NEG); GLUCOSE,URINE NEG (NEG); KETONE, URINE NEG (NEG); NITRITE,URINE NEG (NEG); URINE COLOR Straw (YELLW/STRAW); URINE LEUKOCYTE ESTERASE NEG (NEG)
--- NOTE | 2017-09-03 16:44 | MG ---
cc: Gordy Bethea MD, PhD TEST NUMBER: [id number]. TECHNIQUE: A 17-channel EEG. DESCRIPTION: Background rhythm. Symmetrical alpha frequency, 8 Hz. Amplitude is about 10 microvolts. There is some slowing in the theta range, I think probably related to drowsiness. No lateralizing features are identified and no epileptiform features are identified. Photic stimulation results in a normal driving response. INTERPRETATION: Normal electroencephalogram. Gordy Bethea MD, PhD ARIEL/CELINE , 04:31 PM , 04:43 PM
--- NOTE | 2017-09-03 17:17 | RADRPT ---
EXAM DATE: 09/03/2017 3:39 PM EDT AGE/SEX: 67 years / Male INDICATIONS: Left sided weakness. CVA. Slurred speech. CLINICAL DATA: This is the patient's initial encounter. Patient reports that signs and symptoms have been present for 1 day and indicates a pain score of 0/10. MEDICAL/SURGICAL HISTORY: None. . Right ankle repair. COMPARISON: No prior exams available for comparison. TECHNIQUE: Multiplanar, multisequence examination of the brain was performed without and with 13 ml O mniscan (gadodiamide) contrast as a single exam dose. FINDINGS: Cerebrum: The ventricles are normal for age. No evidence of midline shift, mass lesion, hemorrhage or acute infarction. No extraaxial fluid collections are seen. The pituitary gland and suprasellar cistern are normal in configuration. White Matter: There are a few scattered punctate areas of increased signal seen in the cerebral whit e matter on the FLAIR images. Posterior Fossa: The cerebellum and brainstem are intact. The 4th ventricle is midline. The cerebel lopontine angle is unremarkable. The cerebellar tonsils are normal in position. Diffusion Imaging: No focal areas of restricted diffusion are seen. No evidence of acute infarction . Extracranial: The visualized portions of the orbits and paranasal sinuses are unremarkable. Post Contrast: No abnormal areas of parenchymal or dural enhancement. No evidence of blood-brain ba rrier breakdown. CONCLUSION: 1. No acute abnormality is seen. 2. A few scattered punctate areas of increased signal in the cerebral white matter likely related to minimal areas of demyelination. These are nonspecific. They could be secondary to small vessel ische diogo change. Electronically signed by: Dominic Vieira MD 09/03/2017 5:15 PM EDT
[2017-09-03] MEDS ORDERED: GADODIAMIDE PF 287 MG/ML 5 ML VIAL (for RAD MRI) IVCONTRAST ONE (17:25)
[2017-09-03 17:30] VITALS: BP 116/79; PULSE 92; RESP 18; TEMP 98.6; O2SAT 100
[2017-09-03] MEDS ORDERED: MORPHINE SULFATE 15 MG TAB PO PRN (17:45)
[2017-09-03] MEDS ORDERED: clonazePAM 1 MG TAB PO SCH (18:00)
[2017-09-03] MEDS ORDERED: RIVAROXABAN 20 MG TAB PO SCH (20:00)
[2017-09-03] MEDS: METOPROLOL TARTRATE 50 MG TAB PO SCH (21:00)
[2017-09-03 22:28] LABS: FREE T4 0.87 NG/DL (0.76-1.46)
[2017-09-03] MEDS: clonazePAM 0.5 MG TAB PO SCH (23:34)
[2017-09-04 01:00] VITALS: BP 118/69; PULSE 88; RESP 18; TEMP 98.8; O2SAT 99
[2017-09-04] MEDS: SODIUM CHLOR 0.9% 1000 ML INJ 1,000 ML IV SCH (02:30)
[2017-09-04 05:15] VITALS: BP 115/60; PULSE 67; RESP 16; TEMP 97.3; O2SAT 100
[2017-09-04 07:19] LABS: AUTOMATED NEUTROPHIL # 3.7 TH/MM3 (1.8-7.7); BASOPHIL # 0.1 TH/MM3 (0-0.2); BASOPHIL % 1.2 % (0.0-2.0); EOSINOPHIL # 0.1 TH/MM3 (0-0.4); EOSINOPHIL % 1.5 % (0.0-4.0); HEMATOCRIT 36.3 % (39.0-51.0); HEMOGLOBIN 11.4 GM/DL (13.0-17.0); LYMPH % 44.8 % (9.0-44.0); LYMPHOCYTE # 3.8 TH/MM3 (1.0-4.8); MEAN CELL VOLUME 74.6 FL (80.0-100.0); MEAN CORPUSCULAR HEMOGLOBIN 23.5 PG (27.0-34.0); MEAN CORPUSCULAR HGB CONC 31.5 % (32.0-36.0); MEAN PLATELET VOLUME 8.2 FL (7.0-11.0); MONO % 9.2 % (0.0-8.0); MONOCYTE # 0.8 TH/MM3 (0-0.9); NEUT % 43.3 % (16.0-70.0); PLATELET COUNT 328 TH/MM3 (150-450); RED BLOOD COUNT 4.87 MIL/MM3 (4.50-5.90); WHITE BLOOD COUNT 8.6 TH/MM3 (4.0-11.0)
--- NOTE | 2017-09-04 07:41 | HHI.PR ---
Objective Vital Signs Date Time Temp Pulse Resp B/P (MAP) Pulse Ox O2 Delivery O2 Flow Rate FiO2 09/04/17 01:00 98.8 88 18 118/69 (85) 99 09/03/17 17:30 98.6 92 18 116/79 (91) 100 09/03/17 16:26 09/03/17 15:34 93 16 132/64 (86) 100 Nasal Cannula 2.00 09/03/17 13:14 110 25 128/89 (102) 100 Nasal Cannula 2.00 09/03/17 12:29 128 18 131/88 (102) 98 Room Air 09/03/17 12:20 99 2.00 09/03/17 12:02 98.9 122 17 162/73 (102) 100 I/O 09/03/17 09/03/17 09/03/17 09/04/17 09/04/17 09/04/17 07:00 15:00 23:00 07:00 15:00 23:00 Intake Total 650 ml Output Total 0 ml Balance 650 ml Intake Oral 650 ml Output Urine Total 0 ml # Voids 1 # Bowel Movements 0 Result Diagram: 09/04/17 0645 Objective Remarks awake alert nl speech uses left elbow to sit up giveway weak lue and lle left droop still Assessment and Plan Assessment and Plan imp cta x2 nl and mri neg i changed to xarelto he wants his pain meds back on klonopin some psych hx i am unsure if some malingering or not with nl mri and facial droop somewhat atypical second episode in last month of lhp and nl mri ok to dc on xrelto if med team wants they can restart his narcotics and inc his klonopin back to home dose will sign off i will fu eeg result Andrew Chaney MD Sep 04, 2017 07:41
[2017-09-04 07:44] LABS: ALBUMIN 2.7 GM/DL (3.4-5.0); AST (GOT) 33 U/L (15-37); BICARBONATE 23.9 MEQ/L (21.0-32.0); BLOOD UREA NITROGEN 12 MG/DL (7-18); CHLORIDE 107 MEQ/L (98-107); CHOLESTEROL 129 MG/DL (120-200); CREATININE 0.81 MG/DL (0.60-1.30); GLOMERULAR FILTRATION RATE 95 ML/MIN (>89); GLUCOSE,RANDOM 86 MG/DL (74-106); SODIUM (NA) 138 MEQ/L (136-145); TRIGLYCERIDES 112 MG/DL (42-150)
[2017-09-04 07:50] LABS: ALKALINE PHOSPHATASE 67 U/L (45-117); ALT (GPT) 25 U/L (12-78); LDL CHOLESTEROL 84 MG/DL (0-99); TOTAL BILIRUBIN ADULT 0.3 MG/DL (0.2-1.0); TOTAL PROTEIN 6.1 GM/DL (6.4-8.2)
[2017-09-04 08:06] VITALS: O2SAT 98
[2017-09-04] MEDS: METOPROLOL TARTRATE 50 MG TAB PO SCH (09:00)
[2017-09-04] MEDS ORDERED: TIOTROPIUM BROMIDE 18 MCG INH INH SCH (09:00)
[2017-09-04] MEDS ORDERED: DILTIAZEM-CD 240 MG CAP ER PO SCH (09:00)
[2017-09-04] MEDS: clonazePAM 0.5 MG TAB PO SCH ×2 (09:32→11:35)
[2017-09-04 09:34] VITALS: BP 133/62; PULSE 88; RESP 20; TEMP 98; O2SAT 100
--- NOTE | 2017-09-04 10:57 | HHI.PR ---
Subjective Remarks Follow-up neurologic deficit September 04, 2017-patient seen and examined, reported improvement of slurred speech and lower extremity weakness. Brain MRI negative. Patient is requesting his narcotics prior to discharge Objective Vitals Vital Signs Date Time Temp Pulse Resp B/P (MAP) Pulse Ox O2 Delivery O2 Flow Rate FiO2 09/04/17 09:34 98.0 88 20 133/62 (85) 100 09/04/17 08:06 98 21 09/04/17 05:15 97.3 67 16 115/60 (78) 100 09/04/17 01:00 98.8 88 18 118/69 (85) 99 09/03/17 17:30 98.6 92 18 116/79 (91) 100 09/03/17 16:26 09/03/17 15:34 93 16 132/64 (86) 100 Nasal Cannula 2.00 09/03/17 13:14 110 25 128/89 (102) 100 Nasal Cannula 2.00 09/03/17 12:29 128 18 131/88 (102) 98 Room Air 09/03/17 12:20 99 2.00 09/03/17 12:02 98.9 122 17 162/73 (102) 100 I/O 09/03/17 09/03/17 09/03/17 09/04/17 09/04/17 09/04/17 07:00 15:00 23:00 07:00 15:00 23:00 Intake Total 650 ml 900 ml Output Total 0 ml 850 ml Balance 650 ml 50 ml Intake Oral 650 ml 900 ml Output Urine Total 0 ml 850 ml # Voids 1 # Bowel Movements 0 0 Result Diagram: 09/04/17 0645 09/04/17 0645 Imaging Last Impressions Brain MRI 09/03/17 1310 Signed Impressions: CONCLUSION: 1. No acute abnormality is seen. 2. A few scattered punctate areas of increased signal in the cerebral white ma tter likely related to minimal areas of demyelination. These are nonspecific. T hey could be secondary to small vessel ischemic change. Neck CTA 09/03/17 1217 Signed Impressions: CONCLUSION: 1. Minimal atherosclerotic plaquing at the carotid bifurcations. The carotid c irculation is otherwise widely patent 2. The left vertebral originates directly from the arch and is diminutive in s ize. The right vertebral originates normally from the subclavian and is widely patent throughout its course. Head CTA 09/03/17 1217 Signed Impressions: CONCLUSION: 1. The intracranial circulation appears widely patent. No large or central ves oswaldo occlusion identified. 2. Incidental note made of a diminutive left vertebral artery. 3. CT angiography of the neck is pending. 4. Results were called directly to Dr. Andrew Chaney at 1:[address] 09/03/17 0000 Signed Impressions: CONCLUSION: 1. Negative noncontrast head CT. Objective Remarks GENERAL: NAD SKIN: Warm and dry. HEAD: Normocephalic. EYES: No scleral icterus. No injection or drainage. NECK: Supple, trachea midline. No JVD or lymphadenopathy. CARDIOVASCULAR: Regular rate and rhythm without murmurs, gallops, or rubs. RESPIRATORY: Breath sounds equal bilaterally. No accessory muscle use. GASTROINTESTINAL: Abdomen soft, non-tender, nondistended. MUSCULOSKELETAL: No cyanosis, or edema. BACK: Nontender without obvious deformity. No CVA tenderness. A/P Problem List: (1) TIA (transient ischemic attack) ICD Code: G45.9 - Transient cerebral ischemic attack, unspecified (2) CVA (cerebral vascular accident) ICD Code: I63.9 - Cerebral infarction, unspecified Status: Acute (3) Neurological deficit, transient ICD Code: R29.818 - Other symptoms and signs involving the nervous system Assessment and Plan 67-year-old man with Ischemic CVA vs TIA?-Resolved Neurologic deficit, transient-resolved -NIHSS, Neuro checks, Monitor on telemetry -Head CT 09/03/17 noted and review by me with No acute intracranial disease -Brain MRI without any evidence of infarct -Neurology consultation appreciated -Patient already on Eliquis however secondary to the fact that he has had TIAs, stroke already on that medication; currently on Xarelto -EEG noted and unremarkable Patient states, he has an appointment with neurology outpatient A. fib with RVR -Continue diltiazem, metoprolol 75 mg twice daily as well as Xarelto COPD -no exacerbation -Continue Spiriva, ipratropium nebs every 6 hours while awake and as needed -Supplemental oxygen to keep saturations between 88-92% Chronic pain -Continue outpatient management PTSD Anxiety -Continue Klonopin 1 mg 3 times daily Patient's condition tremendously improved since admission, therefore he will be discharged home Discharge Planning Discharge patient to home Condition on discharge: Improved Regular Diet as tolerated Ad Shana activity Rx written: Xarelto 20 mg daily Follow-up with primary care physician in 1 week Neurology outpatient Problem Qualifiers (1) CVA (cerebral vascular accident): Qualified Codes: I63.9 - Cerebral infarction, unspecified Willie Tomas MD Sep 04, 2017 10:57
[2017-09-04] MEDS ORDERED: XARE20TA PO (10:59)
[2017-09-04] MEDS ORDERED: FERROUS SULFATE 325 MG (65 MG ELEMENTAL IRON) TAB PO SCH (12:00)
--- NOTE | 2017-09-05 17:24 | EKG ---
Date Performed: 09/03/2017 Time Performed: 13:08:10 PTAGE: 67 years EKG: ATRIAL FIBRILLATION WITH RAPID VENTRICULAR RESPONSE ABNORMAL RHYTHM ECG Increased ventricul ar rate noted from prior tracing. PREVIOUS TRACING : 08/15/2017 00.55 DOCTOR: Hector Oliver Interpretating Date/Time 09/05/2017 17:23:52
== END 2017-09-04 13:35 | disposition home or self-care (01) | DRG 65 ==
LOC: NEPC 11:54 → NEDA 15:02 → N05A 16:28
PROVIDERS: ADMIT Hospitalist; ATTEND Hospitalist
DX: I63.9 Cerebral infarction, unspecified (principal); G81.94 Hemiplegia, unspecified affecting left nondominant side; I48.91 Unspecified atrial fibrillation; J44.9 Chronic obstructive pulmonary disease, unspecified; G62.9 Polyneuropathy, unspecified; I10 Essential (primary) hypertension; F41.9 Anxiety disorder, unspecified; R47.81 Slurred speech; F43.10 Post-traumatic stress disorder, unspecified; I73.9 Peripheral vascular disease, unspecified; G89.29 Other chronic pain; M54.9 Dorsalgia, unspecified; Z86.711 Personal history of pulmonary embolism; Z86.718 Personal history of other venous thrombosis and embolism; Z88.5 Allergy status to narcotic agent; Z88.8 Allergy status to other drugs, medicaments and biological substances; Z79.891 Long term (current) use of opiate analgesic; Z79.51 Long term (current) use of inhaled steroids; Z79.899 Other long term (current) drug therapy; Z87.891 Personal history of nicotine dependence
CPT/HCPCS: 70450; 70496; 70498; 70553; 76937; 80048; 80053; 80061; 80307; 81001; 82550; 82607; 82948; 84425; 84439; 84443; 84484; 85025; 85384; 85610; 85652; 85730; 86850; 86900; 86901; 93005; 95819; 96360; 96361; A9579; J7030; Q9967

== ENCOUNTER 2017-11-17 10:50 | Observation (INO) ==
--- NOTE | 2017-11-17 12:47 | XR ---
EXAM DATE: 11/17/2017 12:34 PM EDT AGE/SEX: 67 years / Male INDICATIONS: . Congestion, short of breath, lung pain x 4 days. CLINICAL DATA: This is the patient's initial encounter. Patient reports that signs and symptoms have been present for 4 - 6 days and indicates a pain score of 7/10. MEDICAL/SURGICAL HISTORY: Chronic obstructive pulmonary disease. Deep venous thrombosis. A-fib . Pneumonia. TIA. Pulmonary embolus. None. COMPARISON: [facility] [place] 1[place] SING[place] AP, 09/14/2017. . FINDINGS: There continues to be hyperaeration of both lung martinez with chronic interstitial changes bilaterally . There is stable parenchymal consolidation in the left upper lung. There appears to be a mild increa sing infiltrate in the left lower lung. The right lung is stable. No definite pleural effusions. The heart size is within normal limits. The bony structures are stable. CONCLUSION: 1. Mild increasing infiltrate in the left lower lung. 2. Stable parenchymal consolidation in the left upper lung. 3. Hyperaeration of both lung martinez with chronic interstitial changes bilaterally. Electronically signed by: Yon Rush MD 11/17/2017 12:45 PM EDT
[2017-11-17] MEDS ORDERED: MethylPREDNISolone Sod Succinate Inj 125 MG/2 ML Vial IV.PUSH ONE (13:01)
--- NOTE | 2017-11-17 13:04 | ED ---
HPI General Chief Complaint: Respiratory Symptoms Stated Complaint: Trouble breathing Time Seen by Provider: 11/17/17 12:42 Source: patient Mode of arrival: ambulatory Limitations: no limitations History of Present Illness HPI Narrative: Patient is a 67-year-old male presenting to emerge from for evaluation of shortness of breath. Patient states it started 2-3 days ago. He reports chills, weakness, decreased appetite, nasal congestion, chest congestion and a hoarse voice. Patient denies any abdominal pain, vomiting, headache, dizziness, chest pain. Symptom onset was gradual, symptoms are moderate nature. Patient states he cannot take albuterol because it makes his heart race. MD Complaint: cough, rhinorrhea and nasal congestion Onset (ago): day(s) Duration: constant Severity: moderate Relieving factors: nothing Exacerbating factors: nothing Description of mucous: clear, yellow and green Able to tolerate fluids by mouth: Yes Associated symptoms: chills, voice changes, rhinorrhea, nasal congestion, cough , shortness of breath and nausea Treatments prior to arrival: none Related Data Home Medications Medication Instructions Recorded Confirmed apixaban [Eliquis] 5 mg PO BID 09/14/17 11/17/17 diltiazem HCl [Cardizem CD] 240 mg PO DAILY 09/14/17 11/17/17 metoprolol tartrate [Lopressor] 50 mg PO BID 09/14/17 11/17/17 morphine 15 mg PO Q12H 09/14/17 11/17/17 oxycodone 10 mg PO Q6HR PRN 09/14/17 11/17/17 tiotropium bromide [Spiriva with 1 cap INHALATION DAILY 09/14/17 11/17/17 HandiHaler] Allergies Allergy/AdvReac Type Severity Reaction Status Date / Time codeine Allergy Severe TURN RED, Verified 09/03/17 12:25 SOB, HIVES ketoconazole Allergy Intermediate Rash Verified 09/03/17 12:25 Review of Systems ROS: all other systems reviewed are negative PMFSH History History Provided By: Patient Medical History Medical History Afib (Chronic) CHF (congestive heart failure) (Chronic) COPD (chronic obstructive pulmonary disease) (Chronic) DVT (deep venous thrombosis) (Chronic) Pulmonary embolus (Chronic) C. difficile diarrhea (Resolved) Pneumonia (Resolved) TIA (transient ischemic attack) (Resolved) Surgical History Surgical History History of ankle surgery (Chronic) Social History Social History Substance History: Past History Second Hand Smoke Exposure: No Smoking Status: Unknown if ever smoked Tobacco Type: Cigarettes How Often Do You Have a Drink Containing Alcohol: Monthly or less Recent Travel in [facility] within the Last 8 Weeks: No Recent Out of Country Travel within the Last 8 Weeks: No Exam Narrative Exam Narrative: GENERAL: Thin, well-developed, alert elderly male. Presenting in no acute distress. SKIN: Focused skin assessment warm/dry. HEAD: Atraumatic. Normocephalic. EYES: Pupils equal and round. No scleral icterus. No injection or drainage. ENT: No nasal bleeding or discharge. Mucous membranes pink and moist. NECK: Trachea midline. No JVD. CARDIOVASCULAR: Irregularly regular. No murmur appreciated. RESPIRATORY: No accessory muscle use. Diminished in bases, prolonged expiratory wheezes.. GASTROINTESTINAL: Abdomen soft, non-tender, nondistended. Hepatic and splenic margins not palpable. MUSCULOSKELETAL: No obvious deformities. No clubbing. No cyanosis. No edema. NEUROLOGICAL: Awake and alert. No obvious cranial nerve deficits. Motor grossly within normal limits. Normal speech. PSYCHIATRIC: Appropriate mood and affect; insight and judgment normal. Course Initial Documented Vital Signs Temperature 97.9 F 11/17/17 10:55 Pulse Rate 106 H 11/17/17 10:55 Respiratory Rate 19 11/17/17 10:55 Blood Pressure 116/71 11/17/17 10:55 Pulse Oximetry 100 11/17/17 10:55 Last Documented Vital Signs Temperature 97.9 F 11/17/17 10:55 Pulse Rate 92 H 11/17/17 15:26 Respiratory Rate 22 11/17/17 15:26 Blood Pressure 139/84 11/17/17 15:26 Pulse Oximetry 95 11/17/17 15:26 Medical Decision Making DORIAN Attestation DORIAN supervised visit: Yes Attestation: I, Dr. Lenz saw patient along with Sejal LARSEN saw patient. Patient with COPD exacerbation along with left lower lung infiltrate. Patient was given Solu-Medrol as well as neb treatments. He was also given IV Rocephin as well as IV azithromycin. Plan to labs in the [facility]U for COPD exacerbation MDM Narrative Medical decision making narrative: Patient is a 67-year-old male presenting for evaluation of shortness of breath. Patient's vitals are stable, labs and imaging ordered and pending. Medical records reviewed. IV access was established, patient was placed on telemetry monitoring continuous pulse oximetry. Labs reviewed, no acute findings identified. Specifically no leukocytosis. Hemoglobin has improved when compared to prior results. Chest x-ray shows a left lower lobe increasing infiltrate. Patient was given azithromycin 500 mg IV 1 dose as well as Rocephin. Patient was placed in RTU for COPD exacerbation. Discussed with Dr. Hope who accepted admit, admit orders placed. Patient is agreeable to plan. Medical Screen Exam Complete: Yes Emergency Medical Condition: Yes Differential Diagnosis Differential Diagnosis: Bronchitis versus pneumonia versus COPD exacerbation versus viral URI versus other Medical Records Medical records reviewed: Yes I reviewed the patient's medical records. Lab Data Lab results reviewed: Yes I reviewed the patient's lab results. Result diagrams: 11/17/17 13:10 11/17/17 13:10 Lab Results 11/17/17 11/17/17 11/17/17 Range/Units 13:10 13:10 14:10 WBC 6.9 (4.0-11.0) th/mm3 RBC 4.90 (4.50-5.90) mil/mm3 Hgb 12.4 L (13.0-17.0) gm/dL Hct 38.7 L (39.0-51.0) % MCV 79.0 L (80.0-100.0) fL MCH 25.4 L (27.0-34.0) pg MCHC 32.1 (32.0-36.0) % RDW 20.7 H (11.6-17.2) % Plt Count 400 (150-450) th/mm3 MPV 8.2 (7.0-11.0) fL Neut % (Auto) 54.4 (16.0-70.0) % Lymph % (Auto) 35.0 (9.0-44.0) % [place] % (Auto) 8.8 H (0.0-8.0) % Eos % (Auto) 0.7 (0.0-4.0) % Baso % (Auto) 1.1 (0.0-2.0) % Neut # (Auto) 3.7 (1.8-7.7) th/mm3 Lymph # (Auto) 2.4 (1.0-4.8) th/mm3 [place] # (Auto) 0.6 (0.0-0.9) th/mm3 Eos # (Auto) 0.0 (0.0-0.4) th/mm3 Baso # (Auto) 0.1 (0.0-0.2) th/mm3 WBC Differential . Differential Comment Auto diff final Sodium 136 (136-145) meq/L Potassium 4.2 (3.5-5.1) meq/L Chloride 102 (98-107) meq/L Carbon Dioxide 26.4 (21.0-32.0) meq/L Anion Gap 8 (5-15) meq/L BUN 9 (7-18) mg/dL Creatinine 0.85 (0.60-1.30) mg/dL Estimated GFR Greater than 89 (>89) mL/min Random Glucose 82 (74-106) mg/dL Calcium 8.4 L (8.5-10.1) mg/dL Total Bilirubin 0.3 (0.2-1.0) mg/dL AST 34 (15-37) U/L ALT 30 (12-78) U/L Alkaline Phosphatase 93 (45-117) U/L Total Protein 8.1 (6.4-8.2) g/dL Albumin 3.8 (3.4-5.0) g/dL Urine Color Yellow (Yellw/Straw) Urine Clarity Clear (Clear) Urine pH 5.0 (5.0-8.5) Ur Specific [place] 1.008 (1.002-1.035) Urine Protein Negative (Neg-Trace) mg/dL Urine Glucose (UA) Negative (Negative) mg/dL Urine Ketones Negative (Negative) mg/dL Urine Occult Blood Negative (Negative) Urine Nitrate Negative (Negative) Urine Bilirubin Negative (Negative) Urine Urobilinogen Less than 2 (Less than 2) mg/dL Ur Leukocyte Esterase Negative (Negative) Urine RBC Less than 1 (0-3) /hpf Urine Mucus Few H (Occasional) /lpf Ur Microscopic Review Not Reportable Imaging Data Radiologist's impression: Chest X-Ray 11/17/17 00:00 CONCLUSION: 1. Mild increasing infiltrate in the left lower lung. 2. Stable parenchymal consolidation in the left upper lung. 3. Hyperaeration of both lung martinez with chronic interstitial changes bilaterally. Reviewed radiology reports. Discharge Plan Discharge Disposition Patient Disposition: 30 Still Patient Discharge Condition Condition: Stable Discharge Details Diagnosis: Acute exacerbation of chronic obstructive pulmonary disease (COPD), Pneumonia Physicians Team ED Provider: Anna Lenz ED Midlevel Provider: Sejal Jones Primary Care Provider: Chance Tarango Rxs /Orders / Referrals /Forms Prescriptions: No Action diltiazem HCl [Cardizem CD] 240 mg Capsule,Extended Release 24hr 240 mg PO DAILY RF: 0 tiotropium bromide [Spiriva with HandiHaler] 18 mcg Capsule, W/Inhalation Device 1 cap INHALATION DAILY RF: 0 metoprolol tartrate [Lopressor] 50 mg Tablet 50 mg PO BID RF: 0 morphine 15 mg Tablet Extended Release 15 mg PO Q12H RF: 0 oxycodone 10 mg Tablet 10 mg PO Q6HR PRN (Reason: Breakthrough Pain) RF: 0 apixaban [Eliquis] 5 mg Tablet 5 mg PO BID RF: 0 Discharge Interventions Interventions: Vital Signs Last Done: 11/17/17 15:26 Status ED Status: Pending Admission
[2017-11-17] MEDS ORDERED: Azithromycin Inj 500 MG in Sodium Chlor 0.9% Inj 250 ML IV.SIG ONE (13:12)
[2017-11-17 13:44] LABS: Baso # (Auto) 0.1 th/mm3 (0.0-0.2); Baso % (Auto) 1.1 % (0.0-2.0); Eos % (Auto) 0.7 % (0.0-4.0); Hematocrit 38.7 % (39.0-51.0); Hemoglobin 12.4 gm/dL (13.0-17.0); Lymph # (Auto) 2.4 th/mm3 (1.0-4.8); Mean Corpuscular HGB Conc 32.1 % (32.0-36.0); Mean Corpuscular Hemoglobin 25.4 pg (27.0-34.0); Mean Platelet Volume 8.2 fL (7.0-11.0); Mono # (Auto) 0.6 th/mm3 (0.0-0.9); Mono % (Auto) 8.8 % (0.0-8.0); Neut # (Auto) 3.7 th/mm3 (1.8-7.7); Neut % (Auto) 54.4 % (16.0-70.0); Platelet Count 400 th/mm3 (150-450); Red Cell Distribution Width 20.7 % (11.6-17.2); White Blood Count 6.9 th/mm3 (4.0-11.0)
[2017-11-17 14:00] LABS: Alanine Aminotransferase 30 U/L (12-78); Albumin 3.8 g/dL (3.4-5.0); Anion Gap 8 meq/L (5-15); Aspartate Aminotransferase 34 U/L (15-37); Blood Urea Nitrogen 9 mg/dL (7-18); Calcium 8.4 mg/dL (8.5-10.1); Carbon Dioxide 26.4 meq/L (21.0-32.0); Chloride 102 meq/L (98-107); Glomerular Filtration Rate Greater Than 89 mL/min (>89); Glucose,Random 82 mg/dL (74-106); Potassium 4.2 meq/L (3.5-5.1); Sodium 136 meq/L (136-145)
[2017-11-17 14:01] LABS: Alkaline Phosphatase 93 U/L (45-117); Total Protein 8.1 g/dL (6.4-8.2)
[2017-11-17 14:45] LABS: Bilirubin,Urine Negative (Negative); Clarity,Urine Clear (Clear); Color,Urine Yellow (Yellw/Straw); Glucose,Urine (UA) Negative (Negative); Leukocyte Esterase,Urine Negative (Negative); Mucus,Urine Few /lpf (Occasional); Nitrite,Urine Negative (Negative); Specific Gravity,Urine 1.008 (1.002-1.035)
--- NOTE | 2017-11-17 16:19 | P.HPIM ---
History of Present Illness Primary Care Physician: Chance Tarango MD Chief Complaint: SOB History of Present Illness: This is a 67/M with h/o COPD, afib, CHF, PE, C diff and TIA presenting to the ED for shortness of breath of 4 day duration worse with walking and moving around. This is associated with coughing productive with greenish sputum, non- bloody, fever of 101F, chills, wheezing, hoarseness and having trouble sleeping because it hurts to breathe on the right. He also has 3 pillow orthopnea. No chest pain, palpitations, or leg edema. His doctor assistant is Dr. Jules and entry level administrative assistant is Dr. Clay. No sick contacts. Patient is not on any oxygen at home. Of note, he was admitted in August 2017 for TIA. His EF during that time was 45-50%. Family Hx: No cardiac problems. Mother from Buerger's disease. Review of Systems All other pertinent systems were reviewed and are negative. [facility] - History History Provided By: Patient - Medical History Medical History: Medical History (Last Reviewed 11/17/17 @ 13:10 by SUZIE Hess) Afib CHF (congestive heart failure) COPD (chronic obstructive pulmonary disease) DVT (deep venous thrombosis) Pulmonary embolus C. difficile diarrhea Pneumonia TIA (transient ischemic attack) - Surgical History Surgical History: Surgical History (Last Reviewed 11/17/17 @ 13:10 by SUZIE Hess) History of ankle surgery (Chronic) - Tobacco History Second Hand Smoke Exposure: No Smoking Status: Former smoker Tobacco Type: Cigarettes - Alcohol History How Often Do You Have a Drink Containing Alcohol: Monthly or less - Substance Use History Substance History: Past History - Travel History Recent Travel in the [facility] Within the Last 8 Weeks: No Recent Travel Out of the Country Within the Last 8 Weeks: No - Immunization History Tetanus Immunization: Unsure Medications and Allergies Allergies Allergy/AdvReac Type Severity Reaction Status Date / Time codeine Allergy Severe TURN RED, Verified 09/03/17 12:25 SOB, HIVES ketoconazole Allergy Intermediate Rash Verified 09/03/17 12:25 Home Medications Medication Instructions Recorded Confirmed Type apixaban [Eliquis] 5 mg PO BID 09/14/17 11/17/17 History diltiazem HCl [Cardizem CD] 240 mg PO DAILY 09/14/17 11/17/17 History metoprolol tartrate [Lopressor] 50 mg PO BID 09/14/17 11/17/17 History morphine 15 mg PO Q12H 09/14/17 11/17/17 History oxycodone 10 mg PO Q6HR PRN 09/14/17 11/17/17 History tiotropium bromide [Spiriva with 1 cap INHALATION DAILY 09/14/17 11/17/17 History HandiHaler] Exam Vital signs: Vital Signs 11/17/17 10:55 11/17/17 10:57 11/17/17 13:14 Temperature 97.9 F Pulse Rate 106 H 80 99 H Respiratory Rate 19 22 21 Blood Pressure 116/71 124/83 Pulse Oximetry 100 100 11/17/17 15:26 Temperature Pulse Rate 92 H Respiratory Rate 22 Blood Pressure 139/84 Pulse Oximetry 95 Intake & Output 11/16/17 11/17/17 11/17/17 18:59 06:59 18:59 Intake Total 250 / 250 Balance 250 / 250 Weight 58.967 kg Intake: IV 250 / 250 Azithromycin Inj 500 MG In NS 250 / 250 Inj 250 ML @ 250 mls/hr IV.SIG ONCE ONE Rx#:[id number] Narrative: GENERAL: Not in acute distress, with mild SOB HEAD: Atraumatic. Normocephalic. No temporal or scalp tenderness. EYES: PERRL, full EOMs, no jaundice, nonicteric, pink conjunctivae without injection, moist mucosa ENT: Nose without bleeding, purulent drainage. No tonsillar congestion or exudates NECK: Trachea midline, no mass, no obvious thyromegaly. CARDIOVASCULAR: Irregular rhythm, tachycardic, no murmurs appreciated. RESPIRATORY: Decreased breath sounds bilaterally especially on the left, occasional crackles in the left lower and upper lobe. GASTROINTESTINAL: Abdomen soft, normal bowel sounds, non-tender, nondistended. No hepato-splenomegaly or palpable mass. No guarding. FRANK and exam deferred. MUSCULOSKELETAL: Extremities without clubbing, cyanosis, or edema. INTEGUMENTARY: Warm and dry, no rash of generalized distribution. NEUROLOGICAL: Awake, alert, oriented 3. No obvious cranial nerve deficits. Moves all 4 extremities, muscle strength testing 5 over 5. Motor and sensory grossly within normal limits.Supple neck, no meningeal signs. Grossly negative cerebellar examination. No focal neurologic deficits. Results - Labs CBC & Chem 7: 11/17/17 13:10 11/17/17 13:10 Labs: Short CBC 11/17/17 Range/Units 13:10 WBC 6.9 (4.0-11.0) th/mm3 Hgb 12.4 L (13.0-17.0) gm/dL Hct 38.7 L (39.0-51.0) % Plt Count 400 (150-450) th/mm3 BMP 11/17/17 13:10 Sodium 136 Potassium 4.2 Chloride 102 Carbon Dioxide 26.4 BUN 9 Creatinine 0.85 Calcium 8.4 L Liver Function 11/17/17 Range/Units 13:10 Total Bilirubin 0.3 (0.2-1.0) mg/dL AST 34 (15-37) U/L ALT 30 (12-78) U/L Alkaline Phosphatase 93 (45-117) U/L Albumin 3.8 (3.4-5.0) g/dL Urine 11/17/17 Range/Units 14:10 Urine Color Yellow (Yellw/Straw) Urine Clarity Clear (Clear) Urine pH 5.0 (5.0-8.5) Ur Specific [place] 1.008 (1.002-1.035) Urine Protein Negative (Neg-Trace) mg/dL Urine Glucose (UA) Negative (Negative) mg/dL - Imaging Impressions Chest X-Ray 11/17/17 00:00 CONCLUSION: 1. Mild increasing infiltrate in the left lower lung. 2. Stable parenchymal consolidation in the left upper lung. 3. Hyperaeration of both lung martinez with chronic interstitial changes bilaterally. Caprini VTE Risk Assessment Caprini VTE Risk Assessment: Moderate/High Risk (score >= 2) Caprini Risk Assessment Model: Point Value = 1 Point Value = 2 Point Value = 3 Point Value = 5 Age 41-60 Minor surgery BMI > 25 kg/m2 Swollen legs Varicose veins or History of unexplained or recurrent spontaneous Oral contraceptives or hormone replacement Sepsis (< 1 month) Serious lung disease, including pneumonia (< 1 month) Abnormal pulmonary function Acute myocardial infarction Congestive heart failure (< 1 month) History of inflammatory bowel disease Medical patient at bed rest Age 61-74 Arthroscopic surgery Major open surgery (> 45 min) Laparoscopic surgery (> 45 min) Malignancy Confined to bed (> 72 hours) Immobilizing plaster cast Central venous access Age >= 75 History of VTE Family history of VTE Factor V Leiden Prothrombin [id number] Lupus anticoagulant Anticardiolipin antibodies Elevated serum homocysteine Heparin-induced thrombocytopenia Other congenital or acquired thrombophilia Stroke (< 1 month) Elective arthroplasty Hip, pelvis, or leg fracture Acute spinal cord injury (< 1 month) Prophylaxis Regimen: Total Risk Factor Score Risk Level Prophylaxis Regimen 0-1 Low Early ambulation 2 Moderate Order ONE of the following: *Sequential Compression Device (SCD) *Heparin 5000 units SQ BID 3-4 Higher Order ONE of the following medications: *Heparin 5000 units SQ TID *Enoxaparin/Lovenox 40 mg SQ daily (WT < 150 kg, CrCl > 30 mL/min) *Enoxaparin/Lovenox 30 mg SQ daily (WT < 150 kg, CrCl > 10-29 mL/min) *Enoxaparin/Lovenox 30 mg SQ BID (WT < 150 kg, CrCl > 30 mL/min) AND/OR *Sequential Compression Device (SCD) 5 or more Highest Order ONE of the following medications: *Heparin 5000 units SQ TID (Preferred with Epidurals) *Enoxaparin/Lovenox 40 mg SQ daily (WT < 150 kg, CrCl > 30 mL/min) *Enoxaparin/Lovenox 30 mg SQ daily (WT < 150 kg, CrCl > 10-29 mL/min) *Enoxaparin/Lovenox 30 mg SQ BID (WT < 150 kg, CrCl > 30 mL/min) AND *Sequential Compression Device (SCD) Assessment and Plan - Plan This is a 67-year-old male with history of congestive heart failure, hypertension, atrial fibrillation, PE, TIA presenting to the hospital with shortness of breath, fever and cough productive with greenish sputum Community-acquired pneumonia -no leukocytosis but with fever, cough productive with greenish sputum, chest x-ray personally reviewed showed increasing infiltrate in the left lower lung. He also has a parenchymal consolidation in the left upper lung. Likely community-acquired pneumonia, no recent hospitalization other than in August for TIA. Ejection fraction is 45-50% in August 2017. Start azithromycin and ceftriaxone, check sputum culture, follow- up blood culture. Rapid flu is negative. Continue DuoNeb's [id number] and as needed. Recheck CBC and BMP in the morning. Add BNP Mild COPD exacerbation-patient has obvious wheezing, will start pulse dose steroids with solumedrol 40 mg, taper quickly, restart Spiriva, DuoNebs ATC and PRN as above Atrial fibrillation, RVR-RVR likely because of patient's acute illness, restart Cardizem, metoprolol, apixaban. Monitor, keep on telemetry. Check serial troponin, CK and EKG. Generalized pain-on home dose morphine and oxycodone, continue DVT prophylaxis: Continue Eliquis
[2017-11-17] MEDS ORDERED: Acetaminophen 325 MG Tablet PO PRN (16:36)
[2017-11-17] MEDS: Morphine Sulfate 15 MG SR Tablet PO SCH (19:05)
[2017-11-17] MEDS: MethylPREDNISolone Sod Succinate Inj 40 MG/ML Vial IV.PUSH SCH ×2 (19:05→23:45)
[2017-11-17] MEDS: Metoprolol Tartrate 50 MG Tablet PO SCH (20:01)
[2017-11-17 20:07] LABS: Creatine Kinase 132 U/L (39-308)
[2017-11-18 00:54] LABS: Creatine Kinase 124 U/L (39-308)
[2017-11-18] MEDS: Morphine Sulfate 15 MG SR Tablet PO SCH (05:52)
[2017-11-18] MEDS: MethylPREDNISolone Sod Succinate Inj 40 MG/ML Vial IV.PUSH SCH ×2 (05:53→13:12)
[2017-11-18] MEDS ORDERED: Tiotropium Bromide 18 MCG/ACT Inhaler INH SCH (09:00)
[2017-11-18] MEDS ORDERED: dilTIAZem CD 240 MG Capsule PO SCH (09:00)
[2017-11-18] MEDS: Metoprolol Tartrate 50 MG Tablet PO SCH (09:21)
--- NOTE | 2017-11-18 09:51 | ECG ---
Date Performed: 11/17/2017 Time Performed: 22:46:30 PTAGE: 67 years EKG: ATRIAL FIBRILLATION ABNORMAL RHYTHM ECG PREVIOUS TRACING : 11/17/2017 17.35 DOCTOR: Jovanni Schwarz Interpretating Date/Time 11/18/2017 09:49:22
--- NOTE | 2017-11-18 11:12 | P.PNIM ---
Subjective Interval history: Shortness of breath better, no chest pain, no palpitations. No nausea or vomiting. On room air, ambulating. Physical Exam Vital signs: Vital Signs 11/17/17 13:14 11/17/17 15:26 11/17/17 16:36 Temperature Pulse Rate 99 H 92 H 88 Respiratory Rate 21 22 22 Blood Pressure 139/84 147/68 H Pulse Oximetry 95 95 11/17/17 17:16 11/17/17 20:00 11/17/17 20:27 Temperature 98.3 F Pulse Rate 88 98 H 83 Respiratory Rate 22 20 20 Blood Pressure 146/68 H 133/64 Pulse Oximetry 95 98 11/17/17 23:53 11/18/17 00:00 11/18/17 03:39 Temperature 98.2 F 98.0 F Pulse Rate 86 92 H 72 Respiratory Rate 16 16 Blood Pressure 130/73 119/77 Pulse Oximetry 99 99 11/18/17 04:00 11/18/17 08:00 Temperature 97.7 F Pulse Rate 66 76 Respiratory Rate 12 Blood Pressure 111/70 Pulse Oximetry 99 Intake & Output 11/17/17 11/18/17 11/18/17 18:59 06:59 18:59 Intake Total 350 / 350 Balance 350 / 350 Weight 58.967 kg Intake: IV 350 / 350 Azithromycin Inj 500 MG In NS 250 / 250 Inj 250 ML @ 250 mls/hr IV.SIG ONCE ONE Rx#:[id number] Rocephin Inj 1,000 MG In NS Inj 100 / 100 100 ML @ 200 mls/hr IV.SIG ONCE ONE Rx#:[id number] Other: Date of Last Bowel Movement 11/17/17 Narrative: Not in distress, well-nourished, looks stated age PERRL, pink conjunctiva without injection, anicteric Nose without bleeding, airway patent, oropharynx clear Supple neck, no masses or thyromegaly, trachea midline Irregular rhythm, no murmurs. Decreased breath sounds, occasional wheezing. Crackles in the left upper and lower lobe Normal bowel sounds, soft, non-tender, nondistended, no guarding. Extremities without clubbing, cyanosis, or edema. No rash of generalized distribution. Skin is warm and dry. AAO x3, no cranial nerve deficits, moves all 4 extremities, no focal neurologic deficits Results - Labs CBC & Chem 7: 11/18/17 10:42 11/18/17 10:42 Laboratory Results - last 24 hr 11/17/17 11/17/17 11/17/17 13:10 13:10 14:10 WBC 6.9 RBC 4.90 Hgb 12.4 L Hct 38.7 L MCV 79.0 L MCH 25.4 L MCHC 32.1 RDW 20.7 H Plt Count 400 MPV 8.2 Neut % (Auto) 54.4 Lymph % (Auto) 35.0 [place] % (Auto) 8.8 H Eos % (Auto) 0.7 Baso % (Auto) 1.1 Neut # (Auto) 3.7 Lymph # (Auto) 2.4 [place] # (Auto) 0.6 Eos # (Auto) 0.0 Baso # (Auto) 0.1 WBC Differential . Differential Comment Auto diff final Sodium 136 Potassium 4.2 Chloride 102 Carbon Dioxide 26.4 Anion Gap 8 BUN 9 Creatinine 0.85 Estimated GFR Greater than 89 Random Glucose 82 Calcium 8.4 L Total Bilirubin 0.3 AST 34 ALT 30 Alkaline Phosphatase 93 Total Creatine Kinase Troponin I B-Natriuretic Peptide Total Protein 8.1 Albumin 3.8 Urine Color Yellow Urine Clarity Clear Urine pH 5.0 Ur Specific [place] 1.008 Urine Protein Negative Urine Glucose (UA) Negative Urine Ketones Negative Urine Occult Blood Negative Urine Nitrate Negative Urine Bilirubin Negative Urine Urobilinogen Less than 2 Ur Leukocyte Esterase Negative Urine RBC Less than 1 Urine Mucus Few H Ur Microscopic Review Not Reportable 11/17/17 11/17/17 11/18/17 18:53 18:53 00:14 WBC RBC Hgb Hct MCV MCH MCHC RDW Plt Count MPV Neut % (Auto) Lymph % (Auto) [place] % (Auto) Eos % (Auto) Baso % (Auto) Neut # (Auto) Lymph # (Auto) [place] # (Auto) Eos # (Auto) Baso # (Auto) WBC Differential Differential Comment Sodium Potassium Chloride Carbon Dioxide Anion Gap BUN Creatinine Estimated GFR Random Glucose Calcium Total Bilirubin AST ALT Alkaline Phosphatase Total Creatine Kinase 132 124 Troponin I Less than 0.02 L Less than 0.02 L B-Natriuretic Peptide 337 H Total Protein Albumin Urine Color Urine Clarity Urine pH Ur Specific [place] Urine Protein Urine Glucose (UA) Urine Ketones Urine Occult Blood Urine Nitrate Urine Bilirubin Urine Urobilinogen Ur Leukocyte Esterase Urine RBC Urine Mucus Ur Microscopic Review Microbiology 11/18/17 06:10 Sputum - Expectorated Sputum Gram Stain - Final 11/17/17 15:55 Blood - Peripheral Aerobic Blood Culture - Preliminary No growth in 1 day 11/17/17 15:55 Blood - Peripheral Anaerobic Blood Culture - Preliminary No growth in 1 day 11/17/17 15:40 Blood - Peripheral Aerobic Blood Culture - Preliminary No growth in 1 day 11/17/17 15:40 Blood - Peripheral Anaerobic Blood Culture - Preliminary No growth in 1 day 11/17/17 11:45 Nasal Wash Influenza Types A,B Antigen - Final Negative for FLU A and B antigen Infection due to influenza A or B cannot be ruled out since the antigen present in the sample may be below the detection limit of the test. - Imaging Impressions Chest X-Ray 11/17/17 00:00 CONCLUSION: 1. Mild increasing infiltrate in the left lower lung. 2. Stable parenchymal consolidation in the left upper lung. 3. Hyperaeration of both lung martinez with chronic interstitial changes bilaterally. Assessment and Plan - Plan This is a 67-year-old male with history of congestive heart failure, hypertension, atrial fibrillation, PE, TIA presenting to the hospital with shortness of breath, fever and cough productive with greenish sputum Community-acquired pneumonia -no leukocytosis but with fever, cough productive with greenish sputum, chest x-ray personally reviewed showed increasing infiltrate in the left lower lung. He also has a parenchymal consolidation in the left upper lung. Likely community-acquired pneumonia, no recent hospitalization other than in August for TIA. Ejection fraction is 45-50% in August 2017. Now feeling better, continue azithromycin finished 5 days of treatment. She was ceftriaxone to cefuroxime. Still afebrile, no leukocytosis. Cannot use albuterol because he goes into atrial fibrillation with RVR. Continue Spiriva, Solu-Medrol started, switched to Medrol pack. Continue cardiac medications. Mild COPD exacerbation-patient has obvious wheezing, continue steroids as above. Atrial fibrillation, RVR-now controlled, continue Cardizem, metoprolol, apixaban. Troponin negative 3, EKG remained atrial fibrillation, controlled rate. No ischemic changes. Generalized pain-on home dose morphine and oxycodone, continue DVT prophylaxis: Continue Eliquis Discharge today Follow-up with cardiology in 2 days Rx: Azithromycin and cefuroxime, finished 1 week of treatment, Medrol pack.
[2017-11-18 11:52] LABS: Baso % (Auto) 0.3 % (0.0-2.0); Hematocrit 32.1 % (39.0-51.0); Hemoglobin 10.4 gm/dL (13.0-17.0); Lymph # (Auto) 1.8 th/mm3 (1.0-4.8); Lymph % (Auto) 20.1 % (9.0-44.0); Mean Corpuscular HGB Conc 32.5 % (32.0-36.0); Mean Corpuscular Volume 76.8 fL (80.0-100.0); Mean Platelet Volume 8.2 fL (7.0-11.0); Mono # (Auto) 0.2 th/mm3 (0.0-0.9); Mono % (Auto) 2.8 % (0.0-8.0); Neut # (Auto) 6.8 th/mm3 (1.8-7.7); Neut % (Auto) 76.8 % (16.0-70.0); Platelet Count 357 th/mm3 (150-450); Red Blood Count 4.18 mil/mm3 (4.50-5.90); Red Cell Distribution Width 20.7 % (11.6-17.2); White Blood Count 8.9 th/mm3 (4.0-11.0)
[2017-11-18 12:30] LABS: Anion Gap 11 meq/L (5-15); Blood Urea Nitrogen 11 mg/dL (7-18); Calcium 7.9 mg/dL (8.5-10.1); Carbon Dioxide 23.9 meq/L (21.0-32.0); Chloride 100 meq/L (98-107); Glomerular Filtration Rate Greater Than 89 mL/min (>89); Glucose,Random 166 mg/dL (74-106); Potassium 3.9 meq/L (3.5-5.1); Sodium 135 meq/L (136-145)
[2017-11-18] MEDS ORDERED: Azithromycin 250 MG Tablet PO SCH (13:00)
--- NOTE | 2017-11-18 13:15 | ECG ---
Date Performed: 11/17/2017 Time Performed: 17:35:25 PTAGE: 67 years EKG: ATRIAL FIBRILLATION WITH ABERRANT CONDUCTION OR VENTRICULAR PREMATURE COMPLEXES LOW QRS VOL TAGE IN EXTREMITY LEADS SEPTAL MYOCARDIAL INFARCTION ABNORMAL ECG PREVIOUS TRACING : 11/17/2017 11.44 DOCTOR: Jovanni Schwarz Interpretating Date/Time 11/18/2017 13:10:21
--- NOTE | 2017-11-18 13:25 | ECG ---
Date Performed: 11/17/2017 Time Performed: 11:44:53 PTAGE: 67 years EKG: ATRIAL FIBRILLATION ABNORMAL RHYTHM ECG PREVIOUS TRACING : 09/03/2017 13.08 DOCTOR: Jovanni Schwarz Interpretating Date/Time 11/18/2017 13:24:43
== END 2017-11-18 14:00 | disposition home health service (06) ==
LOC: NEPE 10:50 → NEDA 10:50 → NEPHCDU 17:08
PROVIDERS: ADMIT Hospitalist; ATTEND Hospitalist
DX: J44.1 Chronic obstructive pulmonary disease with (acute) exacerbation; Z79.01 Long term (current) use of anticoagulants; I50.9 Heart failure, unspecified; F17.210 Nicotine dependence, cigarettes, uncomplicated; J44.0 Chronic obstructive pulmonary disease with (acute) lower respiratory infection; Z86.73 Personal history of transient ischemic attack (TIA), and cerebral infarction without residual deficits; I11.0 Hypertensive heart disease with heart failure; I27.82 Chronic pulmonary embolism; Z88.5 Allergy status to narcotic agent; I48.2 Chronic atrial fibrillation; A04.72 Enterocolitis due to Clostridium difficile, not specified as recurrent; J18.9 Pneumonia, unspecified organism

== ENCOUNTER 2017-11-27 15:20 | Observation (INO) ==
[2017-11-27 16:24] LABS: Baso # (Auto) 0.1 th/mm3 (0.0-0.2); Baso % (Auto) 0.7 % (0.0-2.0); Eos # (Auto) 0.1 th/mm3 (0.0-0.4); Eos % (Auto) 1.2 % (0.0-4.0); Hematocrit 31.3 % (39.0-51.0); Hemoglobin 10.6 gm/dL (13.0-17.0); Lymph # (Auto) 2.2 th/mm3 (1.0-4.8); Mean Corpuscular HGB Conc 33.8 % (32.0-36.0); Mean Corpuscular Hemoglobin 26.2 pg (27.0-34.0); Mean Corpuscular Volume 77.5 fL (80.0-100.0); Mean Platelet Volume 7.7 fL (7.0-11.0); Mono # (Auto) 1.2 th/mm3 (0.0-0.9); Mono % (Auto) 14.5 % (0.0-8.0); Neut # (Auto) 4.6 th/mm3 (1.8-7.7); Neut % (Auto) 56.6 % (16.0-70.0); Platelet Count 361 th/mm3 (150-450); Red Blood Count 4.04 mil/mm3 (4.50-5.90); Red Cell Distribution Width 18.9 % (11.6-17.2); White Blood Count 8.2 th/mm3 (4.0-11.0)
[2017-11-27 16:32] LABS: Chloride 97 meq/L (98-107); Potassium 3.9 meq/L (3.5-5.1); Sodium 131 meq/L (136-145)
[2017-11-27 16:35] LABS: Calcium 7.9 mg/dL (8.5-10.1)
[2017-11-27 16:36] LABS: Albumin 3.5 g/dL (3.4-5.0); Anion Gap 12 meq/L (5-15); Blood Urea Nitrogen 8 mg/dL (7-18); Carbon Dioxide 22.5 meq/L (21.0-32.0); Glucose,Random 100 mg/dL (74-106)
[2017-11-27 16:37] LABS: Activated Partial Thrombo Time 28.9 sec (24.3-30.1); INR 1.1 Ratio; Prothrombin Time 11.2 sec (9.8-11.6)
[2017-11-27 16:39] LABS: Alanine Aminotransferase 42 U/L (12-78); Aspartate Aminotransferase 44 U/L (15-37); Glomerular Filtration Rate Greater Than 89 mL/min (>89)
[2017-11-27 16:42] LABS: Alkaline Phosphatase 89 U/L (45-117); Creatine Kinase 118 U/L (39-308)
[2017-11-27 16:54] LABS: Creatine Kinase MB 1.8 ng/mL (0.5-3.6)
--- NOTE | 2017-11-27 17:07 | ED ---
HPI General Chief complaint: Shortness of Breath/Dyspnea Stated complaint: SOB/Weakness/CHF Time Seen by Provider: 11/27/17 15:46 Source: patient Mode of arrival: ambulatory Limitations: no limitations History of Present Illness HPI narrative: Patient is a 67 year old male who comes in complaining of SOB. He was here earlier in the month for shortness of breath and treated for pneumonia. He says he has not felt any better. 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 He says he continues to feel very short of breath and is having chest pain. He says he feels worse when he lays flat or exerts himself. He reports coughing up phlegm. He also says he had a fever or 101 a few days ago and continues to have chills. Severity is moderate. Related Data Home Medications Medication Instructions Recorded Confirmed diltiazem HCl [Cardizem CD] 240 mg PO DAILY 09/14/17 11/27/17 metoprolol tartrate [Lopressor] 50 mg PO BID 09/14/17 11/27/17 morphine 15 mg PO Q12H 09/14/17 11/27/17 oxycodone 10 mg PO Q4HR PRN 09/14/17 11/27/17 tiotropium bromide [Spiriva with 1 cap INHALATION DAILY 09/14/17 11/27/17 HandiHaler] Lacto.acidophilus-Bif.animalis 1 cap PO DAILY 11/27/17 11/27/17 [Probiotic] apixaban [Eliquis] 5 mg PO BID 11/27/17 11/27/17 aspirin 1 tab PO DAILY 11/27/17 11/27/17 furosemide [Lasix] 20 mg PO DAILY 11/27/17 11/27/17 multivitamin 1 tab PO DAILY 11/27/17 11/27/17 Allergies Allergy/AdvReac Type Severity Reaction Status Date / Time codeine Allergy Severe TURN RED, Verified 11/27/17 15:42 SOB, HIVES ketoconazole Allergy Intermediate Rash Verified 11/27/17 15:42 albuterol AdvReac Arrhythmias Verified 11/27/17 15:42 Review of Systems ROS: all other systems reviewed are negative Constitutional Reports chills and Reports fever(s) ENT Denies dizziness Cardiovascular Reports chest pain and Reports dyspnea on exertion Respiratory Reports cough and Reports dyspnea Gastrointestinal Denies nausea and Denies vomiting Musculoskeletal Denies myalgias and Denies arthralgias Integumentary/Breasts Denies rash and Denies sores Neurologic Denies focal weakness and Denies numbness [facility] Medical History Medical History Afib (Chronic) CHF (congestive heart failure) (Chronic) C. difficile diarrhea (Resolved) Pulmonary embolus (Chronic) DVT (deep venous thrombosis) (Chronic) TIA (transient ischemic attack) (Resolved) Pneumonia (Resolved) COPD (chronic obstructive pulmonary disease) (Chronic) Surgical History Surgical History History of ankle surgery (Chronic) Social History Social History Substance History: No History of Abuse Second Hand Smoke Exposure: Yes Smoking Status: Former smoker Tobacco Type: Cigarettes How Often Do You Have a Drink Containing Alcohol: Never Recent Travel in [facility] within the Last 8 Weeks: No Recent Out of Country Travel within the Last 8 Weeks: No Immunization History Tetanus Immunization: Unsure Hx Influenza Vaccine This Season: Yes Exam Narrative Exam Narrative: GENERAL: Awake and alert, in no acute distress. SKIN: Focused skin assessment warm/dry. No wounds or signs of infection. HEAD: Atraumatic. Normocephalic. EYES: Pupils equal and round. No scleral icterus. ENT: Mucous membranes pink and moist. NECK: Trachea midline. No JVD. CARDIOVASCULAR: Tachycardia. No murmur appreciated. RESPIRATORY: No accessory muscle use. Decreased breath sounds at both lung bases. Breath sounds equal bilaterally. GASTROINTESTINAL: Abdomen soft, non-tender, nondistended. Hepatic and splenic margins not palpable. MUSCULOSKELETAL: No obvious deformities. No clubbing. No cyanosis. No edema. NEUROLOGICAL: Awake and alert. No obvious cranial nerve deficits. Motor grossly within normal limits. Normal speech. PSYCHIATRIC: Appropriate mood and affect; insight and judgment normal. Course Initial Documented Vital Signs Temperature 98.5 F 11/27/17 15:39 Pulse Rate 125 H 11/27/17 15:39 Respiratory Rate 20 11/27/17 15:39 Blood Pressure 138/63 11/27/17 15:39 Pulse Oximetry 99 11/27/17 15:39 Last Documented Vital Signs Temperature 98.5 F 11/27/17 15:39 Pulse Rate 103 H 11/27/17 18:46 Respiratory Rate 20 11/27/17 18:46 Blood Pressure 120/76 11/27/17 18:46 Pulse Oximetry 99 11/27/17 18:46 Medical Decision Making MDM Narrative Medical decision making narrative: Patient is a 67-year-old male who comes in complaining of chest pain and shortness of breath. Exam shows decreased breath sounds at both lung bases. IV established, labs sent. Labs show no acute abnormalities. CTA performed shows no evidence of PE. He does have emphysematous changes. Patient was tachycardic on arrival, given 10 mg of Cardizem. At first, patient is hesitant to take an albuterol treatment because he says it exacerbates his A. fib. After Cardizem, his heart rate is controlled. He agreed to try one DuoNeb. Also given a dose of steroids. Patient continues to have pressure to his chest. Aspirin ordered. Patient will be placed in observation for management of COPD and his chest pain. Medical Screen Exam Complete: Yes Emergency Medical Condition: Yes Differential Diagnosis Differential Diagnosis: COPD versus CHF versus PE versus ACS Medical Records Medical records reviewed: Yes I reviewed the patient's medical records. Lab Data Lab results reviewed: Yes I reviewed the patient's lab results. Result diagrams: 11/27/17 16:15 11/27/17 16:15 Lab Results 11/27/17 11/27/17 11/27/17 Range/Units 16:15 16:15 16:15 CBC w Diff Auto diff final WBC 8.2 (4.0-11.0) th/mm3 RBC 4.04 L (4.50-5.90) mil/mm3 Hgb 10.6 L (13.0-17.0) gm/dL Hct 31.3 L (39.0-51.0) % MCV 77.5 L (80.0-100.0) fL MCH 26.2 L (27.0-34.0) pg MCHC 33.8 (32.0-36.0) % RDW 18.9 H (11.6-17.2) % Plt Count 361 (150-450) th/mm3 MPV 7.7 (7.0-11.0) fL Neut % (Auto) 56.6 (16.0-70.0) % Lymph % (Auto) 27.0 (9.0-44.0) % [place] % (Auto) 14.5 H (0.0-8.0) % Eos % (Auto) 1.2 (0.0-4.0) % Baso % (Auto) 0.7 (0.0-2.0) % Neut # (Auto) 4.6 (1.8-7.7) th/mm3 Lymph # (Auto) 2.2 (1.0-4.8) th/mm3 [place] # (Auto) 1.2 H (0.0-0.9) th/mm3 Eos # (Auto) 0.1 (0.0-0.4) th/mm3 Baso # (Auto) 0.1 (0.0-0.2) th/mm3 WBC Differential . Differential Comment . PT 11.2 (9.8-11.6) sec INR 1.1 Ratio APTT 28.9 (24.3-30.1) sec Sodium 131 L (136-145) meq/L Potassium 3.9 (3.5-5.1) meq/L Chloride 97 L (98-107) meq/L Carbon Dioxide 22.5 (21.0-32.0) meq/L Anion Gap 12 (5-15) meq/L BUN 8 (7-18) mg/dL Creatinine 0.78 (0.60-1.30) mg/dL Estimated GFR Greater than 89 (>89) mL/min Random Glucose 100 (74-106) mg/dL Calcium 7.9 L (8.5-10.1) mg/dL Total Bilirubin 0.2 (0.2-1.0) mg/dL AST 44 H (15-37) U/L ALT 42 (12-78) U/L Alkaline Phosphatase 89 (45-117) U/L Total Creatine Kinase 118 (39-308) U/L CK-MB (CK-2) 1.8 (0.5-3.6) ng/mL Troponin I Less than 0.02 L (0.02-0.05) ng/mL B-Natriuretic Peptide (0-100) pg/mL Total Protein 7.0 (6.4-8.2) g/dL Albumin 3.5 (3.4-5.0) g/dL 11/27/17 Range/Units 16:15 CBC w Diff WBC (4.0-11.0) th/mm3 RBC (4.50-5.90) mil/mm3 Hgb (13.0-17.0) gm/dL Hct (39.0-51.0) % MCV (80.0-100.0) fL MCH (27.0-34.0) pg MCHC (32.0-36.0) % RDW (11.6-17.2) % Plt Count (150-450) th/mm3 MPV (7.0-11.0) fL Neut % (Auto) (16.0-70.0) % Lymph % (Auto) (9.0-44.0) % [place] % (Auto) (0.0-8.0) % Eos % (Auto) (0.0-4.0) % Baso % (Auto) (0.0-2.0) % Neut # (Auto) (1.8-7.7) th/mm3 Lymph # (Auto) (1.0-4.8) th/mm3 [place] # (Auto) (0.0-0.9) th/mm3 Eos # (Auto) (0.0-0.4) th/mm3 Baso # (Auto) (0.0-0.2) th/mm3 WBC Differential Differential Comment PT (9.8-11.6) sec INR Ratio APTT (24.3-30.1) sec Sodium (136-145) meq/L Potassium (3.5-5.1) meq/L Chloride (98-107) meq/L Carbon Dioxide (21.0-32.0) meq/L Anion Gap (5-15) meq/L BUN (7-18) mg/dL Creatinine (0.60-1.30) mg/dL Estimated GFR (>89) mL/min Random Glucose (74-106) mg/dL Calcium (8.5-10.1) mg/dL Total Bilirubin (0.2-1.0) mg/dL AST (15-37) U/L ALT (12-78) U/L Alkaline Phosphatase (45-117) U/L Total Creatine Kinase (39-308) U/L CK-MB (CK-2) (0.5-3.6) ng/mL Troponin I (0.02-0.05) ng/mL B-Natriuretic Peptide 213 H (0-100) pg/mL Total Protein (6.4-8.2) g/dL Albumin (3.4-5.0) g/dL Imaging Data Radiologist's impression: Chest CTA 11/27/17 16:00 CONCLUSION: 1. No evidence of pulmonary embolism. 2. Chronic changes throughout the lungs. ECG Data EKG Prior to Arrival: No Attestation: I personally reviewed and interpreted this ECG as follows: Interpretation: ECG shows atrial fibrillation at a rate of 104 Discharge Plan Discharge Disposition Patient Disposition: 30 Still Patient Discharge Condition Condition: Stable Discharge Details Diagnosis: COPD (chronic obstructive pulmonary disease), Chest pain Physicians Team ED Provider: Sigrid Garcia Primary Care Provider: Chance Tarango Attending Provider: Heath Mojica Discharge Interventions Interventions: Vital Signs Last Done: 11/27/17 18:46 Status ED Status: Admitted Observation Patient
--- NOTE | 2017-11-27 17:30 | CT ---
EXAM DATE: 11/27/2017 5:11 PM EDT AGE/SEX: 67 years / Male INDICATIONS: Short of breath. Weakness. CLINICAL DATA: This is the patient's initial encounter. Patient reports that signs and symptoms have been present for 1 week and indicates a pain score of 5/10. MEDICAL/SURGICAL HISTORY: Congestive heart failure. Chronic obstructive pulmonary disease. Deep v enous thrombosis. Pulmonary embolism. Trans ischemic attack. None. RADIATION DOSE: 7.28 CTDI (mGy) COMPARISON: [facility], CHEST 1V SINGLE AP, 09/14/2017. [facility], CT PULMONARY ANGIOGRAM, 08/13/2017. . TECHNIQUE: Volumetric scanning was performed using a multi-row detector CT scanner during bolus infu nolvia of 75 ml Omnipaque 350 (iohexol) nonionic water-soluble contrast as a single exam dose. The william a was post processed with a variety of visualization algorithms including full volume maximum intensi ty projection and sliding thin slab reformation. Using automated exposure control and adjustment of t he mA and/or kV according to patient size, radiation dose was kept as low as reasonably achievable to obtain optimal diagnostic quality images. DICOM format image data is available electronically for r eview and comparison. FINDINGS: Pulmonary Arteries: No filling defects are seen in the pulmonary arteries out to the subsegmental ve ssels. The left and right pulmonary arteries are normal in diameter. Lung: Emphysematous and chronic interstitial changes are again seen bilaterally. No new pulmonary ma ss or focal consolidation. Effusion: None. Mediastinum: No evidence of interval mediastinal or hilar adenopathy. Other: The axilla is unremarkable. Coronary artery calcifications. CONCLUSION: 1. No evidence of pulmonary embolism. 2. Chronic changes throughout the lungs. Electronically signed by: Melissa Pandya MD 11/27/2017 5:29 PM EDT
[2017-11-27] MEDS ORDERED: MethylPREDNISolone Sod Succinate Inj 125 MG/2 ML Vial IV.PUSH ONE (17:56)
[2017-11-27] MEDS ORDERED: Morphine Inj 4 MG/ML Vial IV.PUSH ONE (17:56)
[2017-11-27] MEDS ORDERED: Acetaminophen 325 MG Tablet PO PRN (19:59)
--- NOTE | 2017-11-27 19:59 | P.HPIM ---
History of Present Illness Service: [facility] Primary Care Physician: Chance Tarango MD Chief Complaint: shortness of breath History of Present Illness: Mr. Sun is a 67 yo M with PMH atrial fibrillation, COPD, anemia, thyroid disorder who presented to [facility] ED with complaints of shortness of breath, sputum production, and chest pain. Patient states that his symptoms started earlier this week after he stopped taking Medrol and Azithromycin that he was recently given at discharge from treatment of COPD exacerbation/ respiratory infection. [Per EMR review, patient was recently treated at [facility] 11/17-11/18 for COPD exacerbation/community acquired pneumonia. He was discharged home with Azithromycin and Cefuroxime and Medrol Dosepak. Patient was also treated for atrial fibrillation with RVR during this hospitalization. Per EMR review, he has had multiple prior visits for Afib with RVR and left AMA 09/2017] Patient reports that his shortness of breath has increased gradually and that he can feel increased wheezing. Patient states that his chest pain is constant and is not exertional. he has had improved Afib control recently on Cardizem 240mg daily per Dr. Clay. Patient reports concern that he may have a persistent pulmonary infection and wonders whether he needs a bronchoscopy. He states that he has not seen his Transit Vehicle Inspector, Dr. Jules, in multiple months. Patient reports that he has been having "maroon" sputum. He does not report fevers/chills recently but has had fever previously. patient reports that he is anemic but has not had recent stool abnormalities/blood in stool. He reports that he has had difficulty gaining weight recently. No urinary concerns reported. Interval: Patient with tachycardia (Afib with RVR) on admission but otherwise stable VS. No overt lab abnormalities. CTA performed which showed emphysema but no PE. Patient was given 10mg IV Cardizem and achieved rate control <100bpm. Patient was given Duonebs x1 and Aspirin. He was admitted to medicine for further evaluation/treatment of COPD and chest pain. - Diagnosis (1) Acute exacerbation of chronic obstructive pulmonary disease (COPD) (2) Pneumonia (3) Chest pain (4) Afib Review of Systems Constitutional: Reports malaise, Denies increased appetite Eyes: Reports blurry vision, Reports other (cataract) Ears, Nose, Mouth, and Throat: Denies sinus pain, Denies sinus pressure Cardiovascular: Reports chest pain, Reports shortness of breath, Reports shortness of breath with activity Respiratory: Reports change in phlegm color, Reports cough, Reports pain with cough Gastrointestinal: Denies black, tarry stools, Denies vomiting Genitourinary: Denies urinary incontinence, Denies urinary urgency Musculoskeletal: Reports deformity (right lower extremity-prior injury), Reports joint pain Psychiatric: Denies anxiety Hematologic/Lymphatic: Denies easy bleeding, Denies easy bruising PMFSH - History History Provided By: Patient - Medical History Medical History: Medical History (Last Reviewed 11/27/17 @ 17:06 by Sigrid Garcia MD) Afib (Chronic) CHF (congestive heart failure) (Chronic) C. difficile diarrhea (Resolved) Pulmonary embolus (Chronic) DVT (deep venous thrombosis) (Chronic) TIA (transient ischemic attack) (Resolved) Pneumonia (Resolved) COPD (chronic obstructive pulmonary disease) (Chronic) - Surgical History Surgical History: Surgical History (Last Reviewed 11/27/17 @ 17:06 by Sigrid Garcia MD) History of ankle surgery (Chronic) - Social History I have reviewed the patient's Social History: Yes - Tobacco History Second Hand Smoke Exposure: Yes Tobacco Use In Past 30 Days: Yes Smoking Status: Former smoker Tobacco Type: Cigarettes - Alcohol History How Often Do You Have a Drink Containing Alcohol: Never - Substance Use History Substance History: No History of Abuse - Travel History Recent Travel in the [facility] Within the Last 8 Weeks: No Recent Travel Out of the Country Within the Last 8 Weeks: No - Immunization History Tetanus Immunization: Unsure Hx Influenza Vaccine This Season: Yes Medications and Allergies Allergies Allergy/AdvReac Type Severity Reaction Status Date / Time codeine Allergy Severe TURN RED, Verified 11/27/17 15:42 SOB, HIVES ketoconazole Allergy Intermediate Rash Verified 11/27/17 15:42 albuterol AdvReac Arrhythmias Verified 11/27/17 15:42 Home Medications Medication Instructions Recorded Confirmed Type diltiazem HCl [Cardizem CD] 240 mg PO DAILY 09/14/17 11/27/17 History metoprolol tartrate [Lopressor] 50 mg PO BID 09/14/17 11/27/17 History morphine 15 mg PO Q12H 09/14/17 11/27/17 History oxycodone 10 mg PO Q4HR PRN 09/14/17 11/27/17 History tiotropium bromide [Spiriva with 1 cap INHALATION DAILY 09/14/17 11/27/17 History HandiHaler] Lacto.acidophilus-Bif.animalis 1 cap PO DAILY 11/27/17 11/27/17 History [Probiotic] apixaban [Eliquis] 5 mg PO BID 11/27/17 11/27/17 History aspirin 1 tab PO DAILY 11/27/17 11/27/17 History furosemide [Lasix] 20 mg PO DAILY 11/27/17 11/27/17 History multivitamin 1 tab PO DAILY 11/27/17 11/27/17 History Exam Vital signs: Vital Signs 11/27/17 15:39 11/27/17 16:33 11/27/17 16:34 Temperature 98.5 F Pulse Rate 125 H 132 H Respiratory Rate 20 Blood Pressure 138/63 122/61 Pulse Oximetry 99 99 98 11/27/17 16:39 11/27/17 18:19 11/27/17 18:31 Temperature Pulse Rate 82 90 102 H Respiratory Rate 20 Blood Pressure 113/66 120/57 L Pulse Oximetry 100 100 11/27/17 18:46 Temperature Pulse Rate 103 H Respiratory Rate 20 Blood Pressure 120/76 Pulse Oximetry 99 Intake & Output 11/27/17 11/27/17 11/28/17 06:59 18:59 06:59 Weight 61 kg Narrative: GENERAL: Awake and alert, in no acute distress. SKIN: No visible lesions. Surgical incisions healed at distal RLE HEAD: Atraumatic. Normocephalic. EYES: EOM grossly I. PERRLA ENT: Mucous membranes pink and moist. NECK: Trachea midline. No JVD. CARDIOVASCULAR: Tachycardic to ~100-110bpm; irregular rhythm. No LE edema. No calf asymmetry RESPIRATORY: Decreased breath sounds at bilateral bases; questionable mild expiratory wheezing. Normal rate GASTROINTESTINAL: Abdomen soft, non-tender, nondistended MUSCULOSKELETAL: Grossly normal motor function and ROM NEUROLOGICAL: Awake and alert. No obvious cranial nerve deficits. Grossly normal peripheral motor/sensory function Results - Labs CBC & Chem 7: 11/27/17 16:15 11/27/17 16:15 Labs: Short CBC 11/27/17 Range/Units 16:15 WBC 8.2 (4.0-11.0) th/mm3 Hgb 10.6 L (13.0-17.0) gm/dL Hct 31.3 L (39.0-51.0) % Plt Count 361 (150-450) th/mm3 BMP 11/27/17 16:15 Sodium 131 L Potassium 3.9 Chloride 97 L Carbon Dioxide 22.5 BUN 8 Creatinine 0.78 Calcium 7.9 L Cardiac Enzymes 11/27/17 Range/Units 16:15 Total Creatine Kinase 118 (39-308) U/L CK-MB (CK-2) 1.8 (0.5-3.6) ng/mL Troponin I Less than 0.02 L (0.02-0.05) ng/mL Liver Function 11/27/17 Range/Units 16:15 Total Bilirubin 0.2 (0.2-1.0) mg/dL AST 44 H (15-37) U/L ALT 42 (12-78) U/L Alkaline Phosphatase 89 (45-117) U/L Albumin 3.5 (3.4-5.0) g/dL - Imaging Impressions Chest CTA 11/27/17 16:00 CONCLUSION: 1. No evidence of pulmonary embolism. 2. Chronic changes throughout the lungs. Caprini VTE Risk Assessment Caprini VTE Risk Assessment: Moderate/High Risk (score >= 2) Caprini Risk Assessment Model: Point Value = 1 Point Value = 2 Point Value = 3 Point Value = 5 Age 41-60 Minor surgery BMI > 25 kg/m2 Swollen legs Varicose veins or History of unexplained or recurrent spontaneous Oral contraceptives or hormone replacement Sepsis (< 1 month) Serious lung disease, including pneumonia (< 1 month) Abnormal pulmonary function Acute myocardial infarction Congestive heart failure (< 1 month) History of inflammatory bowel disease Medical patient at bed rest Age 61-74 Arthroscopic surgery Major open surgery (> 45 min) Laparoscopic surgery (> 45 min) Malignancy Confined to bed (> 72 hours) Immobilizing plaster cast Central venous access Age >= 75 History of VTE Family history of VTE Factor V Leiden Prothrombin [id number] Lupus anticoagulant Anticardiolipin antibodies Elevated serum homocysteine Heparin-induced thrombocytopenia Other congenital or acquired thrombophilia Stroke (< 1 month) Elective arthroplasty Hip, pelvis, or leg fracture Acute spinal cord injury (< 1 month) Prophylaxis Regimen: Total Risk Factor Score Risk Level Prophylaxis Regimen 0-1 Low Early ambulation 2 Moderate Order ONE of the following: *Sequential Compression Device (SCD) *Heparin 5000 units SQ BID 3-4 Higher Order ONE of the following medications: *Heparin 5000 units SQ TID *Enoxaparin/Lovenox 40 mg SQ daily (WT < 150 kg, CrCl > 30 mL/min) *Enoxaparin/Lovenox 30 mg SQ daily (WT < 150 kg, CrCl > 10-29 mL/min) *Enoxaparin/Lovenox 30 mg SQ BID (WT < 150 kg, CrCl > 30 mL/min) AND/OR *Sequential Compression Device (SCD) 5 or more Highest Order ONE of the following medications: *Heparin 5000 units SQ TID (Preferred with Epidurals) *Enoxaparin/Lovenox 40 mg SQ daily (WT < 150 kg, CrCl > 30 mL/min) *Enoxaparin/Lovenox 30 mg SQ daily (WT < 150 kg, CrCl > 10-29 mL/min) *Enoxaparin/Lovenox 30 mg SQ BID (WT < 150 kg, CrCl > 30 mL/min) AND *Sequential Compression Device (SCD) Assessment and Plan - Assessment (1) Acute exacerbation of chronic obstructive pulmonary disease (COPD) Code(s): J44.1 - Chronic obstructive pulmonary disease with (acute) exacerbation Status: Acute (2) Pneumonia Code(s): J18.9 - Pneumonia, unspecified organism Status: Acute (3) Chest pain Code(s): R07.9 - Chest pain, unspecified Status: Acute (4) Afib Code(s): I48.91 - Unspecified atrial fibrillation Status: Chronic - Plan Mr. Sun is a 67 yo M with: Cough, shortness of breath Impression: s/p recent treatment for pneumonia/COPD exacerbation with Azithromycin, Cefuroxime, Medrol. On admission, VS stable with patient on room air. Mild expiratory wheezing on exam CXR- partly cavitary consolidation of L apex unchanged. left greater than R basilar interstitial opacities unchanged CTA- No PE. Chronic lung changes -Blood/sputum culture pending -Flu negative -Will monitor O2 saturations, vitals -Will empirically treat for COPD exacerbation/pneumonia based on symptoms/ imaging findings; however, reassured at patient's lack of lab or vital abnormalities -Solumedrol 40mg IV BID -Levaquin 750mg daily -Will review EMR further regarding cavitary CXR finding and adjust therapy if needed -Continue duonebs PRN -Will check sputum culture Atrial fibrillation Impression: in RVR on admission; reportedly improved s/p Cardizem 10mg IV -Will monitor on telemetry -Continue home Cardizem 240mg CD -Will continue Metoprolol 50mg BID -Will give additional Metoprolol 25mg PRN for tachycardia -Continue Eliquis for anticoagulation Chest pain Impression: Suspect COPD related, but some cardiac history -Will continue telemetry, ACS rule-out Anemia Impression: Unclear etiology; will review EMR -Continue to monitor CBC Generalized pain-on home dose morphine and oxycodone, continue DVT prophylaxis: Continue Eliquis Code Status: DNR (2) Pneumonia Qualifiers: Pneumonia type: due to unspecified organism Laterality: left Lung location: lower lobe of lung Qualified Code(s): J18.1 - Lobar pneumonia, unspecified organism (3) Chest pain Qualifiers: Chest pain type: other chest pain Qualified Code(s): R07.89 - Other chest pain; R07.8 - Other chest pain
[2017-11-27] MEDS ORDERED: Metoprolol Tartrate 25 MG Tablet PO PRN ×2 (20:20→21:00)
[2017-11-27] MEDS: Metoprolol Tartrate 50 MG Tablet PO SCH (20:50)
[2017-11-27] MEDS: Senna/Docusate Sodium 8.6/50 MG Tablet PO SCH (20:51)
[2017-11-27] MEDS: MethylPREDNISolone Sod Succinate Inj 40 MG/ML Vial IV.PUSH SCH (20:51)
[2017-11-27 21:15] LABS: Creatine Kinase 193 U/L (39-308)
--- NOTE | 2017-11-27 21:21 | XR ---
EXAM DATE: 11/27/2017 9:13 PM EDT AGE/SEX: 67 years / Male INDICATIONS: Cough, shortness of breath CLINICAL DATA: This is the patient's initial encounter. Patient reports that signs and symptoms have been present for 1 day and indicates a pain score of 5/10. MEDICAL/SURGICAL HISTORY: . Chronic obstructive pulmonary disease. Deep venous thrombosis. A-fi b. Pneumonia. TIA. Pulmonary embolus. None. COMPARISON: CT pulmonary angiogram 11/27/2017. FINDINGS: Chronic interstitial changes and bronchiectasis seen of the bases. Partly cavitary consolidation is a gain seen of the left apex. I don't see a significant change from the CT earlier today. No pleural ef fusion demonstrated. No pneumothorax. Heart size stable, within normal limits. CONCLUSION: Partly cavitary consolidation of the left apex unchanged. Left greater than right basilar interstitial opacities unchanged. Electronically signed by: Dominic Chacon MD 11/27/2017 9:20 PM EDT
[2017-11-28 02:50] LABS: Creatine Kinase 145 U/L (39-308)
[2017-11-28] MEDS: Lactobacillus Acidophilus/L. Spores Tablet PO SCH (09:23)
[2017-11-28] MEDS: dilTIAZem CD 240 MG Capsule PO SCH (09:23)
[2017-11-28] MEDS: Furosemide 20 MG Tablet PO SCH (09:24)
[2017-11-28] MEDS: Metoprolol Tartrate 50 MG Tablet PO SCH ×2 (09:25→21:32)
[2017-11-28] MEDS: MethylPREDNISolone Sod Succinate Inj 40 MG/ML Vial IV.PUSH SCH ×2 (09:26→21:31)
[2017-11-28] MEDS: Senna/Docusate Sodium 8.6/50 MG Tablet PO SCH ×2 (09:27→21:31)
[2017-11-28] MEDS: Tiotropium Bromide 18 MCG/ACT Inhaler INH SCH (10:23)
[2017-11-28 11:32] LABS: Baso # (Auto) 0.1 th/mm3 (0.0-0.2); Baso % (Auto) 1.4 % (0.0-2.0); Eos % (Auto) 0.1 % (0.0-4.0); Hematocrit 33.4 % (39.0-51.0); Hemoglobin 10.6 gm/dL (13.0-17.0); Lymph # (Auto) 1.5 th/mm3 (1.0-4.8); Mean Corpuscular HGB Conc 31.8 % (32.0-36.0); Mean Corpuscular Hemoglobin 25.3 pg (27.0-34.0); Mean Corpuscular Volume 79.5 fL (80.0-100.0); Mean Platelet Volume 8.2 fL (7.0-11.0); Mono # (Auto) 0.8 th/mm3 (0.0-0.9); Mono % (Auto) 14.2 % (0.0-8.0); Neut % (Auto) 56.3 % (16.0-70.0); Platelet Count 354 th/mm3 (150-450); Red Blood Count 4.21 mil/mm3 (4.50-5.90); Red Cell Distribution Width 17.9 % (11.6-17.2); White Blood Count 5.4 th/mm3 (4.0-11.0)
[2017-11-28 11:37] LABS: Chloride 96 meq/L (98-107); Potassium 4.5 meq/L (3.5-5.1); Sodium 130 meq/L (136-145)
[2017-11-28 11:40] LABS: Calcium 8.3 mg/dL (8.5-10.1)
[2017-11-28 11:41] LABS: Anion Gap 13 meq/L (5-15); Blood Urea Nitrogen 11 mg/dL (7-18); Carbon Dioxide 21.2 meq/L (21.0-32.0); Glucose,Random 72 mg/dL (74-106)
[2017-11-28 11:44] LABS: Glomerular Filtration Rate Greater Than 89 mL/min (>89)
--- NOTE | 2017-11-28 11:59 | ECG ---
Date Performed: 11/28/2017 Time Performed: 02:12:11 PTAGE: 67 years EKG: ATRIAL FIBRILLATION LOW QRS VOLTAGE IN EXTREMITY LEADS ABNORMAL RHYTHM ECG PREVIOUS TRACING : 11/27/2017 20.40 DOCTOR: Kayleen Ware Interpretating Date/Time 11/28/2017 11:56:32
[2017-11-28] MEDS: Morphine Sulfate 15 MG SR Tablet PO PRN (12:33)
--- NOTE | 2017-11-28 13:21 | P.PNIM ---
Subjective Interval history: Mr. Sun was generally rate controlled overnight with intermittent RVR per telemetry review; otherwise stable vitals. Patient reports that he is doing ok at this time; he has continued cough and shortness of breath. He provided list of multiple concerns including desire for home health care, desire for results from prior CT imaging, desire to update his Oral And Maxillofacial Surgery regarding his care, and desire to obtain vaccinations. Patient reports general difficulties at home due to shortness of breath and weakness at home. He states that he has not been able to follow-up with his Video Game Maker Dr. Jules due to lack of financial resources. Physical Exam Vital signs: Vital Signs 11/27/17 15:39 11/27/17 16:33 11/27/17 16:34 Temperature 98.5 F Pulse Rate 125 H 132 H Respiratory Rate 20 Blood Pressure 138/63 122/61 Pulse Oximetry 99 99 98 11/27/17 16:39 11/27/17 18:19 11/27/17 18:31 Temperature Pulse Rate 82 90 102 H Respiratory Rate 20 Blood Pressure 113/66 120/57 L Pulse Oximetry 100 100 11/27/17 18:46 11/27/17 20:00 11/28/17 00:00 Temperature 98.1 F 96.9 F L Pulse Rate 103 H 89 89 Respiratory Rate 20 20 20 Blood Pressure 120/76 125/86 121/88 Pulse Oximetry 99 100 100 11/28/17 04:00 11/28/17 08:00 11/28/17 09:54 Temperature 97.9 F 98.0 F Pulse Rate 112 H 111 H Respiratory Rate 20 19 18 Blood Pressure 118/72 117/79 Pulse Oximetry 97 98 11/28/17 09:56 Temperature Pulse Rate Respiratory Rate 18 Blood Pressure Pulse Oximetry Intake & Output 11/27/17 11/28/17 11/28/17 18:59 06:59 18:59 Intake Total 1110 / 1110 450 / 450 Output Total 1575 / 1575 700 / 700 Balance -465 / -465 -250 / -250 Weight 61 kg 61.4 kg Intake: IV 150 / 150 Levaquin 750 mg Premix Inj 150 150 / 150 ML @ 100 mls/hr IV.SIG Q24H JANETTE Rx#:[id number] Oral 960 / 960 450 / 450 Output: Urine 1575 / 1575 700 / 700 Other: # Voids 6 Narrative: GENERAL: Awake and alert, in no acute distress. SKIN: No visible lesions. Surgical incisions healed at distal RLE HEAD: Atraumatic. Normocephalic. EYES: EOM grossly I. PERRLA ENT: Mucous membranes pink and moist. CARDIOVASCULAR: HR ~100bpm at time of exam. No murmurs. No LE edema RESPIRATORY: Decreased breath sounds at bilateral bases; questionable mild expiratory wheezing. Normal rate GASTROINTESTINAL: Abdomen soft, non-tender, nondistended MUSCULOSKELETAL: Grossly normal motor function and ROM NEUROLOGICAL: Awake and alert. No obvious cranial nerve deficits. Grossly normal peripheral motor/sensory function Results - Labs CBC & Chem 7: 11/28/17 10:45 11/28/17 10:45 Laboratory Results - last 24 hr 11/27/17 11/27/17 11/27/17 16:15 16:15 16:15 CBC w Diff Auto diff final WBC 8.2 RBC 4.04 L Hgb 10.6 L Hct 31.3 L MCV 77.5 L MCH 26.2 L MCHC 33.8 RDW 18.9 H Plt Count 361 MPV 7.7 Neut % (Auto) 56.6 Lymph % (Auto) 27.0 [place] % (Auto) 14.5 H Eos % (Auto) 1.2 Baso % (Auto) 0.7 Neut # (Auto) 4.6 Lymph # (Auto) 2.2 [place] # (Auto) 1.2 H Eos # (Auto) 0.1 Baso # (Auto) 0.1 WBC Differential . Differential Comment . PT 11.2 INR 1.1 APTT 28.9 Sodium 131 L Potassium 3.9 Chloride 97 L Carbon Dioxide 22.5 Anion Gap 12 BUN 8 Creatinine 0.78 Estimated GFR Greater than 89 Random Glucose 100 Calcium 7.9 L Total Bilirubin 0.2 AST 44 H ALT 42 Alkaline Phosphatase 89 Total Creatine Kinase 118 CK-MB (CK-2) 1.8 Troponin I Less than 0.02 L B-Natriuretic Peptide Total Protein 7.0 Albumin 3.5 11/27/17 11/27/17 11/28/17 16:15 20:45 02:12 CBC w Diff WBC RBC Hgb Hct MCV MCH MCHC RDW Plt Count MPV Neut % (Auto) Lymph % (Auto) [place] % (Auto) Eos % (Auto) Baso % (Auto) Neut # (Auto) Lymph # (Auto) [place] # (Auto) Eos # (Auto) Baso # (Auto) WBC Differential Differential Comment PT INR APTT Sodium Potassium Chloride Carbon Dioxide Anion Gap BUN Creatinine Estimated GFR Random Glucose Calcium Total Bilirubin AST ALT Alkaline Phosphatase Total Creatine Kinase 193 145 CK-MB (CK-2) Troponin I Less than 0.02 L Less than 0.02 L B-Natriuretic Peptide 213 H Total Protein Albumin 11/28/17 11/28/17 10:45 10:45 CBC w Diff Auto diff final WBC 5.4 RBC 4.21 L Hgb 10.6 L Hct 33.4 L MCV 79.5 L MCH 25.3 L MCHC 31.8 L RDW 17.9 H Plt Count 354 MPV 8.2 Neut % (Auto) 56.3 Lymph % (Auto) 28.0 [place] % (Auto) 14.2 H Eos % (Auto) 0.1 Baso % (Auto) 1.4 Neut # (Auto) 3.0 Lymph # (Auto) 1.5 [place] # (Auto) 0.8 Eos # (Auto) 0.0 Baso # (Auto) 0.1 WBC Differential . Differential Comment . PT INR APTT Sodium 130 L Potassium 4.5 Chloride 96 L Carbon Dioxide 21.2 Anion Gap 13 BUN 11 Creatinine 0.84 Estimated GFR Greater than 89 Random Glucose 72 L Calcium 8.3 L Total Bilirubin AST ALT Alkaline Phosphatase Total Creatine Kinase CK-MB (CK-2) Troponin I B-Natriuretic Peptide Total Protein Albumin - Imaging Impressions Chest X-Ray 11/27/17 00:00 CONCLUSION: Partly cavitary consolidation of the left apex unchanged. Left greater than right basilar interstitial opacities unchanged. Chest CTA 11/27/17 16:00 CONCLUSION: 1. No evidence of pulmonary embolism. 2. Chronic changes throughout the lungs. Assessment and Plan - Assessment (1) Acute exacerbation of chronic obstructive pulmonary disease (COPD) Code(s): J44.1 - Chronic obstructive pulmonary disease with (acute) exacerbation Status: Acute (2) Pneumonia Code(s): J18.9 - Pneumonia, unspecified organism Status: Acute (3) Chest pain Code(s): R07.9 - Chest pain, unspecified Status: Acute (4) Afib Code(s): I48.91 - Unspecified atrial fibrillation Status: Chronic - Plan Mr. Sun is a 67 yo M with: Cough, shortness of breath 11/28- normal saturations on room air Impression: s/p recent treatment for pneumonia/COPD exacerbation with Azithromycin, Cefuroxime, Medrol. On admission, VS stable with patient on room air. Mild expiratory wheezing on exam CXR- partly cavitary consolidation of L apex unchanged. left greater than R basilar interstitial opacities unchanged CTA- No PE. Chronic lung changes -Will monitor O2 saturations, vitals -Will empirically treat for COPD exacerbation/pneumonia based on symptoms/ imaging findings; however, reassured at patient's lack of lab or vital abnormalities -Will change Solumedrol 40mg IV BID to oral Prednisone -Levaquin 750mg daily -Continue duonebs PRN -Will check sputum culture -Continue home Spiriva -Will add singulair -Recommended pulmonary rehab as outpatient *Patient's symptoms appear to be subacute and he has had several recent exacerbations. Suggestion of COPD on imaging as well as L apex chronic cavitary lesion. Due to presence of chronic cavitary lesion in [place]AK[place] and patient's reported inability to follow-up as outpatient with Pulmonology; will consult for evaluation whether any further work-up needed for lung or if just scarring Atrial fibrillation Impression: in RVR on admission; reportedly improved s/p Cardizem 10mg IV. Now generally normal rate on home meds -Will monitor on telemetry -Continue home Cardizem 240mg CD -Will Metoprolol 50mg BID -Continue Eliquis for anticoagulation Chest pain Impression: Suspect COPD related, but some cardiac history -s/p ACS rule-out; reassuring Anemia Impression: Unclear etiology; will review EMR -Continue to monitor CBC -Will check Hemoccult Generalized pain-on home dose morphine and oxycodone, continue Weakness Impression: Suspect some psychologic component -PT consulted- home health recommended DVT prophylaxis: Continue Eliquis (2) Pneumonia Qualifiers: Pneumonia type: due to unspecified organism Laterality: left Lung location: lower lobe of lung Qualified Code(s): J18.1 - Lobar pneumonia, unspecified organism (3) Chest pain Qualifiers: Chest pain type: other chest pain Qualified Code(s): R07.89 - Other chest pain; R07.8 - Other chest pain
[2017-11-28] MEDS ORDERED: Montelukast 10 MG Tablet PO SCH (21:00)
--- NOTE | 2017-11-28 22:08 | ECG ---
Date Performed: 11/27/2017 Time Performed: 20:40:20 PTAGE: 67 years EKG: ATRIAL FIBRILLATION ABNORMAL RHYTHM ECG PREVIOUS TRACING : 11/27/2017 16.07 DOCTOR: Kayleen Ware Interpretating Date/Time 11/28/2017 22:07:10
--- NOTE | 2017-11-28 22:15 | ECG ---
Date Performed: 11/27/2017 Time Performed: 16:07:57 PTAGE: 67 years EKG: ATRIAL FIBRILLATION WITH RAPID VENTRICULAR RESPONSE ABNORMAL RHYTHM ECG PREVIOUS TRACING : 11/17/2017 22.46 DOCTOR: Kayleen Ware Interpretating Date/Time 11/28/2017 22:11:04
[2017-11-29] MEDS: Morphine Sulfate 15 MG SR Tablet PO PRN ×2 (00:03→12:13)
[2017-11-29] MEDS ORDERED: predniSONE 20 MG Tablet PO SCH (09:00)
[2017-11-29] MEDS: Tiotropium Bromide 18 MCG/ACT Inhaler INH SCH (09:23)
[2017-11-29] MEDS: Furosemide 20 MG Tablet PO SCH (09:24)
[2017-11-29] MEDS: dilTIAZem CD 240 MG Capsule PO SCH (09:24)
[2017-11-29] MEDS: Metoprolol Tartrate 50 MG Tablet PO SCH (09:25)
[2017-11-29] MEDS: Senna/Docusate Sodium 8.6/50 MG Tablet PO SCH (09:25)
[2017-11-29] MEDS: Lactobacillus Acidophilus/L. Spores Tablet PO SCH (09:25)
--- NOTE | 2017-11-29 13:40 | P.PNIM ---
Subjective Interval history: Mr. Sun was afebrile with stable VS overnight; HR controlled in 70's. Patient reported he was somewhat disoriented last night but is doing well currently. Patient feels that he is ready to go home today; no reported shortness of breath or chest pain. Loose bowel movement; normal urination. Physical Exam Vital signs: Vital Signs 11/28/17 15:03 11/28/17 16:00 11/28/17 18:38 Temperature 98.0 F Pulse Rate 68 Respiratory Rate 18 14 18 Blood Pressure 113/75 Pulse Oximetry 100 11/28/17 20:00 11/29/17 00:00 11/29/17 04:00 Temperature 97.4 F L 97.1 F L 97.0 F L Pulse Rate 91 H 80 77 Respiratory Rate 18 18 18 Blood Pressure 112/57 L 100/55 L 107/68 Pulse Oximetry 99 100 99 11/29/17 08:00 11/29/17 09:54 11/29/17 09:59 Temperature 97.5 F L Pulse Rate 70 Respiratory Rate 21 18 18 Blood Pressure 117/61 Pulse Oximetry 99 11/29/17 12:43 Temperature Pulse Rate Respiratory Rate 18 Blood Pressure Pulse Oximetry Intake & Output 11/28/17 11/29/17 11/29/17 18:59 06:59 18:59 Intake Total 450 / 450 1150 / 1150 240 / 240 Output Total 700 / 700 Balance -250 / -250 1150 / 1150 240 / 240 Weight 61.4 kg Intake: IV 150 / 150 Levaquin 750 mg Premix Inj 150 150 / 150 ML @ 100 mls/hr IV.SIG Q24H [facility] Rx#:[id number] Oral 450 / 450 1000 / 1000 240 / 240 Output: Urine 700 / 700 Other: # Voids 3 Narrative: GENERAL: Awake and alert, in no acute distress. SKIN: No visible lesions. Surgical incisions healed at distal RLE EYES: EOM grossly I. PERRLA ENT: Mucous membranes pink and moist. CARDIOVASCULAR: regular rate; irregular rhythm. No murmurs. No LE edema RESPIRATORY: Decreased breath sounds at bilateral bases; wheezes no longer audible. Normal rate GASTROINTESTINAL: Abdomen soft, non-tender, nondistended MUSCULOSKELETAL: Grossly normal motor function and ROM NEUROLOGICAL: Awake and alert. No obvious cranial nerve deficits. Grossly normal peripheral motor/sensory function Results - Labs CBC & Chem 7: 11/28/17 10:45 11/28/17 10:45 Assessment and Plan - Assessment (1) Acute exacerbation of chronic obstructive pulmonary disease (COPD) Code(s): J44.1 - Chronic obstructive pulmonary disease with (acute) exacerbation Status: Acute (2) Pneumonia Code(s): J18.9 - Pneumonia, unspecified organism Status: Acute (3) Chest pain Code(s): R07.9 - Chest pain, unspecified Status: Acute (4) Afib Code(s): I48.91 - Unspecified atrial fibrillation Status: Chronic - Plan Mr. Sun is a 67 yo M with: Cough, shortness of breath 11/28- normal saturations on room air Impression: s/p recent treatment for pneumonia/COPD exacerbation with Azithromycin, Cefuroxime, Medrol. On admission, VS stable with patient on room air. Mild expiratory wheezing on exam CXR- partly cavitary consolidation of L apex unchanged. left greater than R basilar interstitial opacities unchanged CTA- No PE. Chronic lung changes -Will monitor O2 saturations, vitals -Will empirically treat for COPD exacerbation/pneumonia based on symptoms/ imaging findings; however, reassured at patient's lack of lab or vital abnormalities -Continue oral Prednisone -Levaquin 750mg daily; will plan to discharge with 5-7 total days treatment -Continue duonebs PRN -sputum culture pending -Continue home Spiriva -Added singulair -Recommended pulmonary rehab as outpatient *Patient's symptoms appear to be subacute and he has had several recent exacerbations. Suggestion of L apex chronic cavitary lesion. Due to presence of chronic cavitary lesion in BAK[place]I and patient's reported inability to follow-up as outpatient with Pulmonology; will consult for evaluation whether any further work-up needed for lung or if just scarring Atrial fibrillation Impression: in RVR on admission; reportedly improved s/p Cardizem 10mg IV. Now generally normal rate on home meds -Will monitor on telemetry -Continue home Cardizem 240mg CD -Will Metoprolol 50mg BID -Continue Eliquis for anticoagulation Chest pain Impression: Suspect COPD related, but some cardiac history -s/p ACS rule-out; reassuring Anemia Impression: Unclear etiology; will review EMR -Continue to monitor CBC Generalized pain-on home dose morphine and oxycodone, continue Weakness Impression: Suspect some psychologic component -PT consulted- home health recommended DVT prophylaxis: Continue Eliquis Code Status: DNR Discharge Planning: ANticipate discharge today on oral steroids and empiric antibiotics for COPD exacerbation after Pulmonary eval for whether further management of L lung abnormality needed (2) Pneumonia Qualifiers: Pneumonia type: due to unspecified organism Laterality: left Lung location: lower lobe of lung Qualified Code(s): J18.1 - Lobar pneumonia, unspecified organism (3) Chest pain Qualifiers: Chest pain type: other chest pain Qualified Code(s): R07.89 - Other chest pain; R07.8 - Other chest pain
--- NOTE | 2017-11-29 13:41 | P.DCO ---
- Diagnosis (1) COPD (chronic obstructive pulmonary disease) - Physical Therapy Order: Evaluate and treat, Improve ambulation, Strength and gait training - Home Health Nursing Order: Medical education, Signs/symptoms of disease process - Certification I have seen patient Ramirez Sun on 11/29/17. My clinical findings support the need for the requested home health care services because: Patient has SOB, Deconditioned with increased weakness I certify that my clinical findings support that this patient is homebound because: Hx COPD - exertion dyspnea/weakness (1) COPD (chronic obstructive pulmonary disease) Qualifiers: COPD type: COPD with acute exacerbation Qualified Code(s): J44.1 - Chronic obstructive pulmonary disease with (acute) exacerbation
[2017-11-29 15:20] LABS: Baso % (Auto) 0.2 % (0.0-2.0); Eos % (Auto) 0.1 % (0.0-4.0); Hematocrit 31.2 % (39.0-51.0); Hemoglobin 10.2 gm/dL (13.0-17.0); Lymph # (Auto) 1.1 th/mm3 (1.0-4.8); Lymph % (Auto) 8.7 % (9.0-44.0); Mean Corpuscular HGB Conc 32.6 % (32.0-36.0); Mean Corpuscular Volume 79.6 fL (80.0-100.0); Mean Platelet Volume 7.4 fL (7.0-11.0); Mono # (Auto) 1.1 th/mm3 (0.0-0.9); Mono % (Auto) 8.6 % (0.0-8.0); Neut # (Auto) 10.9 th/mm3 (1.8-7.7); Neut % (Auto) 82.4 % (16.0-70.0); Platelet Count 341 th/mm3 (150-450); Red Blood Count 3.92 mil/mm3 (4.50-5.90); Red Cell Distribution Width 18.4 % (11.6-17.2); White Blood Count 13.1 th/mm3 (4.0-11.0)
[2017-11-29 15:26] LABS: Potassium 4.5 meq/L (3.5-5.1)
[2017-11-29 15:28] LABS: Calcium 7.8 mg/dL (8.5-10.1)
[2017-11-29 15:29] LABS: Carbon Dioxide 26.4 meq/L (21.0-32.0)
[2017-11-29 16:41] VITALS: BP 103/65; PULSE 75; TEMP 98.2; O2SAT 99
--- NOTE | 2017-11-29 18:18 | MB ---
cc: Clayton Sarabia MD DATE: 11/29/2017 REASON FOR CONSULTATION: COPD and lung infiltrates. HISTORY OF PRESENT ILLNESS: This is a 67-year-old white male with a past history of COPD and chronic upper lobe lung infiltrates. He was recently treated for pneumonia and was discharged, but had to come back to the hospital 2 days ago with increasing dyspnea, cough, congestion and wheezing. The patient was on Ceftin and a Medrol Dosepak and currently has had atrial fibrillation with RVR and has had previous admissions for the same. This time, however, his wheezing got worse and then he had some chest pains as well and has had increased leg edema and thus was admitted. A CT chest was done which showed no evidence of pulmonary emboli, but showed emphysema as well as chronic changes in the lung martinez. The patient has previously been seen by Dr. Jules, who has noted that he had these upper lobe chronic infiltrates with scarring. This time, the patient was on Cardizem initially for tachycardia and atrial fibrillation, but now on oral medications as well as Eliquis 5 mg. The patient denies any fevers or chills and denies hemoptysis but has mild leg swelling. PAST MEDICAL HISTORY: Past history has included a history of atrial fibrillation, COPD with emphysema, history of pneumonia in the past, C. diff colitis, history of CHF, history of DVTs and TIAs. He also has been admitted previously for atrial fibrillation with RVR. HABITS AND SOCIAL HISTORY: The patient smoked for more than 30 years a pack a day and quit. There is a history of some alcohol use. ALLERGIES: NO DRUG ALLERGIES ARE LISTED. FAMILY HISTORY: Essentially noncontributory. REVIEW OF SYSTEMS: The patient has lost weight. He has postnasal drip, cough and wheezing. He has epigastric distress. No nausea, vomiting. No urinary symptoms. No leg or calf muscle pains, but has some joint pains to the extremities. PHYSICAL EXAMINATION: GENERAL: This is a thinly built, elderly white male who is alert, pale. He has no clubbing. He has 1+ peripheral edema. VITAL SIGNS: Blood pressure 130/70, pulse 95, respirations 20, temperature 98.2. HEENT: Head is normocephalic. Pupils are reactive. Tongue moist. Throat is clear. NECK: Supple without venous distention. Trachea midline. No thyroid enlargement. CHEST: Equal movements with an increased AP diameter with diffuse wheezes throughout both lung martinez and a few crackles at the right base. HEART: Sounds are irregularly irregular. S1 and S2 with no definite murmur. ABDOMEN: Soft, protuberant without masses. No organomegaly or tenderness. Bowel sounds are active. EXTREMITIES: Edema, as mentioned above, with decreased pulses. NEUROLOGIC: Reflexes are 1+ with no gross motor deficits. Cranial nerves are grossly intact. SKIN: No lesions are noted. IMPRESSION: 1. Acute exacerbation of chronic obstructive pulmonary disease. 2. Emphysema with chronic bronchitis. 3. Atrial fibrillation and atherosclerotic heart disease. 4. Congestive heart failure. PLAN: The patient is already on antibiotic coverage including Levaquin 750 mg a day, which could be switched to oral medication. Continue with Lasix 20 mg daily and continue with bronchodilators, including Spiriva inhaler 1 capsule a day. He could use Ventolin HFA inhaler 2 puffs q.i.d. p.r.n. and continue on prednisone 30 mg a day to be tapered off in 3 weeks. The patient could be discharged and follow up with Dr. Jules as an outpatient. At this time, he could be taken off of the oxygen since his saturations are adequate on room air. Thank you for this consultation. Clayton Sarabia MD VJD/yue , 04:04 PM , 04:17 PM
[2017-11-29 18:46] VITALS: RESP 18
--- NOTE | 2017-12-01 21:01 | P.DS ---
Date of admission: 11/27/17 18:33 Primary care physician: Chance Tarango MD Attending physician on discharge: Heath Mojica Anticipated date of discharge: 11/29/17 Brief History from admission: Mr. Sun is a 67 yo M with PMH atrial fibrillation, COPD, anemia, thyroid disorder who presented to [facility] ED with complaints of shortness of breath, sputum production, and chest pain. Patient states that his symptoms started earlier this week after he stopped taking Medrol and Azithromycin that he was recently given at discharge from treatment of COPD exacerbation/ respiratory infection. [Per EMR review, patient was recently treated at [place] 11/17-11/18 for COPD exacerbation/community acquired pneumonia. He was discharged home with Azithromycin and Cefuroxime and Medrol Dosepak. Patient was also treated for atrial fibrillation with RVR during this hospitalization. Per EMR review, he has had multiple prior visits for Afib with RVR and left AMA 09/2017] Patient reports that his shortness of breath has increased gradually and that he can feel increased wheezing. Patient states that his chest pain is constant and is not exertional. he has had improved Afib control recently on Cardizem 240mg daily per Dr. Clay. Patient reports concern that he may have a persistent pulmonary infection and wonders whether he needs a bronchoscopy. He states that he has not seen his District [employer] Director, Dr. Jules, in multiple months. Patient reports that he has been having "maroon" sputum. He does not report fevers/chills recently but has had fever previously. patient reports that he is anemic but has not had recent stool abnormalities/blood in stool. He reports that he has had difficulty gaining weight recently. No urinary concerns reported. Interval: Patient with tachycardia (Afib with RVR) on admission but otherwise stable VS. No overt lab abnormalities. CTA performed which showed emphysema but no PE. Patient was given 10mg IV Cardizem and achieved rate control <100bpm. Patient was given Duonebs x1 and Aspirin. He was admitted to medicine for further evaluation/treatment of COPD and chest pain. Patient update on day of discharge: Mr. Sun was afebrile with stable VS overnight; HR controlled in 70's. Patient reported he was somewhat disoriented last night but is doing well currently. Patient feels that he is ready to go home today; no reported shortness of breath or chest pain. Loose bowel movement; normal urination. DS: Diagnosis - Discharge Diagnosis (1) COPD (chronic obstructive pulmonary disease) Status: Chronic (2) Afib Status: Chronic (3) Acute exacerbation of chronic obstructive pulmonary disease (COPD) Status: Acute (4) Pneumonia Status: Acute (5) Chest pain Status: Acute DS: Medications - Discharge Medications Prescriptions: levofloxacin 750 mg PO DAILY #5 tab prednisone 40 mg PO DAILY #14 tab DS: Summary Hospital Course: Mr. Sun is a 67 yo M with PMH atrial fibrillation, COPD, chronic anemia, thyroid disorder who presented to [facility] ED with complaints of shortness of breath, sputum production, and chest pain. [Per EMR review, patient was recently treated at [place] 11/17-11/18 for COPD exacerbation/community acquired pneumonia. He was discharged home with Azithromycin and Cefuroxime and Medrol Dosepak. Patient was also treated for atrial fibrillation with RVR during this hospitalization. Per EMR review, he has had multiple prior visits for Afib with RVR and left AMA 09/2017]. Patient found to be tachycardic on admission but otherwise stable VS. CTA performed which showed emphysema but no PE. ACS ruled-out with troponins/EKG. Patient was given 10mg IV Cardizem and achieved rate control <100bpm. CXR showed unchanged L apex abnormalities and L sided basilar opacities. Patient was empirically treated for COPD exacerbation vs pneumonia with IV Solumedrol, Levaquin, and home Spiriva. Pulmonology was also consulted for persistent L apex cavitary lesion; outpatient follow-up advised. Patient had rate control during hospitalization and discharged on his home dosage of Cardizem 240mg ER and Metoprolol 50mg BID. Patient had improvement during hospitalization and felt ready for discharge home 11/29. patient was transitioned to oral Prednisone taper and discharged with empiric Levaquin; follow-up with PCP and Pulmonology recommended. Outpatient labs ordered. Patient discharged with home health due to weakness on PT evaluation; it was also recommended that he pursue Pulmonary rehabilitation as an outpatient. - Time Spent with Patient Total time spent providing and/or coordinating discharge services: Less than 30 minutes - Quality: VTE Deep Vein Thrombosis/Pulmonary Embolism Present on Admission: No Exam Vital signs: Initial Documented Vital Signs Temperature 98.5 F 11/27/17 15:39 Pulse Rate 125 H 11/27/17 15:39 Respiratory Rate 20 11/27/17 15:39 Blood Pressure 138/63 11/27/17 15:39 Pulse Oximetry 99 11/27/17 15:39 Last Documented Vital Signs Temperature 98.2 F 11/29/17 16:00 Pulse Rate 75 11/29/17 16:00 Respiratory Rate 18 11/29/17 18:30 Blood Pressure 103/65 11/29/17 16:00 Pulse Oximetry 99 11/29/17 16:00 Narrative: GENERAL: Awake and alert, in no acute distress. SKIN: No visible lesions. Surgical incisions healed at distal RLE EYES: EOM grossly I. PERRLA ENT: Mucous membranes pink and moist. CARDIOVASCULAR: regular rate; irregular rhythm. No murmurs. No LE edema RESPIRATORY: Decreased breath sounds at bilateral bases; wheezes no longer audible. Normal rate GASTROINTESTINAL: Abdomen soft, non-tender, nondistended MUSCULOSKELETAL: Grossly normal motor function and ROM NEUROLOGICAL: Awake and alert. No obvious cranial nerve deficits. Grossly normal peripheral motor/sensory function Results Procedures completed during hospitalization: None - Impressions ITS Impressions Chest X-Ray 11/27/17 00:00 CONCLUSION: Partly cavitary consolidation of the left apex unchanged. Left greater than right basilar interstitial opacities unchanged. Chest CTA 11/27/17 16:00 CONCLUSION: 1. No evidence of pulmonary embolism. 2. Chronic changes throughout the lungs. Discharge Plan - Discharge Disposition Patient Disposition: /Home Health Service - Discharge Condition Condition: Stable - Discharge Order Discharge Orders: Discharge Order (Routine); Ordered 11/29/17 Ordered By: Heath Mojica - Discharge Details Anticipated Discharge Date: 11/29/17 - Physicians Team Primary Care Provider: Chance Tarango Attending Provider: Heath Mojica Other Providers: [employer] ; Dominic Posadas MD
== END 2017-11-29 18:10 | disposition home health service (06) ==
LOC: PHED 15:20 → PHEDA 15:20 → PH3 19:30
PROVIDERS: ADMIT Family Medicine; ATTEND Family Medicine

== ENCOUNTER 2017-12-27 16:47 | Observation (INO) ==
[2017-12-27] MEDS ORDERED: Morphine Inj 4 MG/ML Vial IV.PUSH ONE (17:26)
[2017-12-27] MEDS ORDERED: Sod Chloride 0.9% Inj 1,000 ML IV.SIG SCH ×2 (17:30→20:15)
--- NOTE | 2017-12-27 17:31 | ED ---
HPI General Chief complaint: Abdominal Pain Stated complaint: Abd Pain Time Seen by Provider: 12/27/17 17:14 Source: patient Mode of arrival: ambulatory Limitations: no limitations History of Present Illness HPI narrative: 67yo M with PMH of COPD, afib on eliquis, chronic pain on MS contin here with c/o worsening abdominal pain, nausea, vomiting, diarrhea. Said he feels very dry. +Dysuria. Said pain is constant, right sided and goes from abdomen to back. Pt was just seen here on 12/23/17 and had no acute findings on CT a/p with IV contrast. However, he did have hives after contrast so was given prednisone. C diff negative at the time. Denies any fever, chest pain, sob, focal weakness or numbness. Related Data Home Medications Medication Instructions Recorded Confirmed diltiazem HCl [Cardizem CD] 240 mg PO DAILY 09/14/17 12/27/17 metoprolol tartrate [Lopressor] 50 mg PO BID 09/14/17 12/27/17 morphine 15 mg PO Q12H 09/14/17 12/27/17 oxycodone 10 mg PO Q4HR PRN 09/14/17 12/27/17 tiotropium bromide [Spiriva with 1 cap INHALATION DAILY 09/14/17 12/27/17 HandiHaler] Lacto.acidophilus-Bif.animalis 1 cap PO DAILY 11/27/17 12/27/17 [Probiotic] apixaban [Eliquis] 5 mg PO BID 11/27/17 12/27/17 aspirin 81 mg PO DAILY 11/27/17 12/27/17 multivitamin 1 tab PO DAILY 11/27/17 12/27/17 Previous Rx's Medication Instructions Recorded prednisone 40 mg PO DAILY 5 Days #10 tab 12/23/17 ranitidine HCl [Zantac] 150 mg PO BID #20 tab 12/23/17 Allergies Allergy/AdvReac Type Severity Reaction Status Date / Time codeine Allergy Severe TURN RED, Verified 12/20/17 10:12 SOB, HIVES ketoconazole Allergy Intermediate Rash Verified 12/20/17 10:12 Iodinated Contrast- Oral and Allergy Hives Verified 12/23/17 18:16 IV Dye [Contrast] albuterol AdvReac Arrhythmias Verified 12/20/17 10:12 Review of Systems ROS: all other systems reviewed are negative [facility] Family History Family History Mother Buerger disease Social History Social History Substance History: No History of Abuse Second Hand Smoke Exposure: No Smoking Status: Former smoker Tobacco Type: Cigarettes How Often Do You Have a Drink Containing Alcohol: Never Recent Travel in [place] within the Last 8 Weeks: No Recent Out of Country Travel within the Last 8 Weeks: No Immunization History Tetanus Immunization: Unsure Exam Narrative Exam Narrative: GENERAL: 67yo M in mild distress. SKIN: Focused skin assessment warm/dry. HEAD: Atraumatic. Normocephalic. NECK: Trachea midline. No JVD. CARDIOVASCULAR: Mildly tachycardic. No murmur appreciated. RESPIRATORY: No accessory muscle use. Clear to auscultation. Breath sounds equal bilaterally. GASTROINTESTINAL: Abdomen soft, +TTP Right upper, mid and lower abdomen. No rebound tenderness or guarding. BACK: +CVA tenderness right. MUSCULOSKELETAL: No obvious deformities. No clubbing. No cyanosis. No edema. NEUROLOGICAL: Awake and alert. No obvious cranial nerve deficits. Motor grossly within normal limits. Normal speech. PSYCHIATRIC: Appropriate mood and affect; insight and judgment normal. Course Initial Documented Vital Signs Temperature 99.0 F 12/27/17 17:07 Pulse Rate 102 H 12/27/17 17:07 Respiratory Rate 16 12/27/17 17:07 Blood Pressure 148/88 H 12/27/17 17:07 Pulse Oximetry 99 12/27/17 17:07 Last Documented Vital Signs Temperature 99.3 F 12/27/17 19:14 Pulse Rate 100 H 12/27/17 19:14 Respiratory Rate 16 12/27/17 19:16 Blood Pressure 140/81 12/27/17 19:14 Pulse Oximetry 99 12/27/17 19:14 Medical Decision Making [facility] Narrative Medical decision making narrative: 67yo M returns to the ED after being evaluated 4 days ago for worsening symptoms. Pt did not have urine checked at that time so will check urine. He has been vomiting and having diarrhea and appears dehydrated. Will obtain labs, UA, EKG and give morphine, zofran and NS IVF. If pain persists, will repeat CT a/p without contrast. Labs reviewed, no leukocytosis. H/H is low at 10.8/32.0 which is lower than 12/23/17 but is his baseline from previous labs. Sodium is low at 121, pt has been hyponatremic before but this is the lowest his sodium has been. Chloride slightly lower. Pt said he feels very weak, does not feel better, still in pain after morphine. CT a/p showed no etiology for pt's right flank pain. UA negative. Will admit for symptomatic hyponatremia. Discussed with resident physicians and accepted to their service. Medical Screen Exam Complete: Yes Emergency Medical Condition: Yes Differential Diagnosis Differential Diagnosis: Nephrolithiasis vs. pyelonephritis vs. dehydration vs. gastroenteritis Lab Data Result diagrams: 12/27/17 17:45 12/27/17 17:45 Lab Results 12/27/17 12/27/17 12/27/17 Range/Units 17:45 17:45 18:00 WBC 10.1 (4.0-11.0) th/mm3 RBC 4.13 L (4.50-5.90) mil/mm3 Hgb 10.8 L (13.0-17.0) gm/dL Hct 32.0 L (39.0-51.0) % MCV 77.5 L (80.0-100.0) fL MCH 26.2 L (27.0-34.0) pg MCHC 33.8 (32.0-36.0) % RDW 17.9 H (11.6-17.2) % Plt Count 387 (150-450) th/mm3 MPV 7.5 (7.0-11.0) fL Neut % (Auto) 54.4 (16.0-70.0) % Lymph % (Auto) 27.6 (9.0-44.0) % [place] % (Auto) 16.1 H (0.0-8.0) % Eos % (Auto) 0.9 (0.0-4.0) % Baso % (Auto) 1.0 (0.0-2.0) % Neut # (Auto) 5.5 (1.8-7.7) th/mm3 Lymph # (Auto) 2.8 (1.0-4.8) th/mm3 [place] # (Auto) 1.6 H (0.0-0.9) th/mm3 Eos # (Auto) 0.1 (0.0-0.4) th/mm3 Baso # (Auto) 0.1 (0.0-0.2) th/mm3 WBC Differential . Differential Comment Auto diff final Sodium 121 L* (136-145) meq/L Potassium 4.8 (3.5-5.1) meq/L Chloride 91 L (98-107) meq/L Carbon Dioxide 21.6 (21.0-32.0) meq/L Anion Gap 8 (5-15) meq/L BUN 13 (7-18) mg/dL Creatinine 0.75 (0.60-1.30) mg/dL Estimated GFR Greater than 89 (>89) mL/min Random Glucose 91 (74-106) mg/dL Calcium 8.0 L (8.5-10.1) mg/dL Total Bilirubin 0.4 (0.2-1.0) mg/dL AST 55 H (15-37) U/L ALT 45 (12-78) U/L Alkaline Phosphatase 94 (45-117) U/L Total Protein 7.0 D (6.4-8.2) g/dL Albumin 3.1 L (3.4-5.0) g/dL Lipase 294 (73-393) U/L Urine Color Yellow (Yellw/Straw) Urine Clarity Clear (Clear) Urine pH 7.0 (5.0-8.5) Ur Specific [place] 1.015 (1.002-1.035) Urine Protein Negative (Neg-Trace) mg/dL Urine Glucose (UA) Negative (Negative) mg/dL Urine Ketones Negative (Negative) mg/dL Urine Occult Blood Negative (Negative) Urine Nitrate Negative (Negative) Urine Bilirubin Negative (Negative) Urine Urobilinogen Less than 2 (Less than 2) mg/dL Ur Leukocyte Esterase Negative (Negative) Urine RBC Less than 1 (0-3) /hpf Urine WBC 1 (0-5) /hpf Ur Squamous Epith Cells <1 (0-5) /hpf Hyaline Casts 1 (0-3) /lpf Granular Casts 1 (None) /lpf Micro UA Comment Culture not ind Ur Microscopic Review Not Reportable Urine Culture Comments Culture not ind Imaging Data Radiologist's impression: Abdomen/Pelvis CT 12/27/17 18:02 CONCLUSION: 1. CT scan without oral intravenous contrast still does not show etiology of patient's right flank pain. 2. Lack of intravenous and oral contrast does make detection of subtle etiology such as pyonephritis difficult. ECG Data EKG Prior to Arrival: No Attestation: I personally reviewed and interpreted this ECG as follows: Interpretation: Afib at 103bpm. Normal axis. No ST segment elevation or depression. Discharge Plan Discharge Disposition Patient Disposition: 30 Still Patient Discharge Details Diagnosis: Hyponatremia Physicians Team ED Provider: Sanjuanita West Primary Care Provider: Chance Tarango Attending Provider: Alberto Bradshaw Other Providers: [facility],Insurance Status ED Status: Left Department Discharge Information Discharge Date/Time: 12/27/17 21:34
[2017-12-27 18:14] LABS: Baso # (Auto) 0.1 th/mm3 (0.0-0.2); Eos # (Auto) 0.1 th/mm3 (0.0-0.4); Eos % (Auto) 0.9 % (0.0-4.0); Hemoglobin 10.8 gm/dL (13.0-17.0); Lymph # (Auto) 2.8 th/mm3 (1.0-4.8); Lymph % (Auto) 27.6 % (9.0-44.0); Mean Corpuscular HGB Conc 33.8 % (32.0-36.0); Mean Corpuscular Hemoglobin 26.2 pg (27.0-34.0); Mean Corpuscular Volume 77.5 fL (80.0-100.0); Mean Platelet Volume 7.5 fL (7.0-11.0); Mono # (Auto) 1.6 th/mm3 (0.0-0.9); Mono % (Auto) 16.1 % (0.0-8.0); Neut # (Auto) 5.5 th/mm3 (1.8-7.7); Neut % (Auto) 54.4 % (16.0-70.0); Platelet Count 387 th/mm3 (150-450); Red Blood Count 4.13 mil/mm3 (4.50-5.90); Red Cell Distribution Width 17.9 % (11.6-17.2); White Blood Count 10.1 th/mm3 (4.0-11.0)
[2017-12-27 18:30] LABS: Bilirubin,Urine Negative (Negative); Clarity,Urine Clear (Clear); Color,Urine Yellow (Yellw/Straw); Glucose,Urine (UA) Negative (Negative); Hyaline Casts,Urine 1 /lpf (0-3); Leukocyte Esterase,Urine Negative (Negative); Nitrite,Urine Negative (Negative); Specific Gravity,Urine 1.015 (1.002-1.035); Squamous Epithelial Cell,Urine <1 /hpf (0-5)
[2017-12-27 18:47] LABS: Alanine Aminotransferase 45 U/L (12-78); Albumin 3.1 g/dL (3.4-5.0); Alkaline Phosphatase 94 U/L (45-117); Anion Gap 8 meq/L (5-15); Aspartate Aminotransferase 55 U/L (15-37); Blood Urea Nitrogen 13 mg/dL (7-18); Carbon Dioxide 21.6 meq/L (21.0-32.0); Chloride 91 meq/L (98-107); Glomerular Filtration Rate Greater Than 89 mL/min (>89); Glucose,Random 91 mg/dL (74-106); Lipase 294 U/L (73-393); Potassium 4.8 meq/L (3.5-5.1)
--- NOTE | 2017-12-27 19:15 | CT ---
EXAM DATE: 12/27/2017 6:08 PM EDT AGE/SEX: 67 years / Male INDICATIONS: Right sided abdomen pain for ten days. CLINICAL DATA: This is the patient's initial encounter. Patient reports that signs and symptoms have been present for 2 weeks and indicates a pain score of 7/10. MEDICAL/SURGICAL HISTORY: Chronic obstructive pulmonary disease. Congestive heart failure. De ep venous thrombosis. pulmonary embolism None. RADIATION DOSE: 8.07 CTDI (mGy) COMPARISON: [facility] [place], CT ABDOMEN & PELVIS W CONTRAST, 12/23/2017. . TECHNIQUE: Multiple contiguous axial images were obtained through the abdomen. Images were obtained using multiple row detector helical technique. Using automated exposure control and adjustment of the mA and/or kV according to patient size, radiation dose was kept as low as reasonably achievable to o btain optimal diagnostic quality images. DICOM format image data is available electronically for rev iew and comparison. FINDINGS: Coarse emphysematous changes in both lung bases similar to what was seen on the comparison study. Air-filled distal esophagus subdural was seen on previous study. The liver is free of focal defects. Small apparent cortical gallstone is evident Pancreas and spleen are unremarkable Right and left kidneys unremarkable There is no retroperitoneal adenopathy Stool is seen in the luz ascending colon. Fluid-filled loops of small bowel are evident without free air or inflammatory changes in the mesentery. Moderate vascular calcifications are noted Review of bone windows reveals only degenerative changes. Previous study was done with intravenous contrast. This showed no evidence for renal obstruction or m esenteric vessel occlusion.. CONCLUSION: 1. CT scan without oral intravenous contrast still does not show etiology of patient's right flank p ain. 2. Lack of intravenous and oral contrast does make detection of subtle etiology such as pyonephritis difficult. Electronically signed by: James Moreno MD 12/27/2017 7:14 PM EDT
[2017-12-27 19:29] LABS: Sodium 121 meq/L (136-145)
--- NOTE | 2017-12-27 20:38 | P.HPFP ---
History of Present Illness Primary Care Physician: Chance Tarango MD History of Present Illness: 67-year-old male with past medical history of A. fib on Eliquis, COPD, chronic anemia, thyroid disorder who presented to the ED with complaints of 5-6-day history of abdominal pain and diarrhea. Patient recently went to the ED 4 days ago for similar symptoms. CT of the abdomen and pelvis revealed no acute findings. Patient experienced hives after receiving contrast. C. difficile was negative. Patient's sodium was also mildly low at 128. Patient's symptoms resolved after receiving IV fluids, morphine, and Zofran. Patient was discharged with 5-day course of prednisone and ranitidine and was told to follow -up with his primary care doctor. Patient states that his primary care doctor did not have a appointment until February. Patient continued to have worsening of right-sided, intermittent, stabbing abdominal/flank pain as well as explosive nonbloody, watery diarrhea. Patient states that his abdominal pain is better when he lays down and has a bowel movement. He reports that his pain is worse with movement. Patient endorses a low-grade fever about 99-100, nausea , and one episode of nonbloody, nonbilious vomiting this morning. He also endorses shortness of breath related to COPD. He states that his sputum has been a little worse in amount and color. Also reports he has lost 30 pounds in the last 6-7 months. Patient reports history of a left lung nodule. According to recent chest x-rays on past admissions, patient's lung nodule was stable. He denies chest pain, recent use of antibiotics, dysuria, urinary urgency. PMHx: COPD Afib on Eliquis CHF Hx of PE and DVT HTN Chronic pain- right ankle History of C. difficile in the past Meds: Ranitidine 150 mg twice daily Multivitamin Apixaban 5 mg p.o. 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 Tamiko Hay: Dr. Jules Distribution Manager, Dr. Clay - Diagnosis (1) Hyponatremia (2) Lung nodule (3) Abdominal pain (4) Diarrhea (5) Afib (6) COPD (chronic obstructive pulmonary disease) (7) CHF (congestive heart failure) (8) Anemia (9) History of ankle surgery (10) Nutrition, metabolism, and development symptoms Review of Systems Constitutional: Reports fever(s), Reports weight loss, Denies chills, Denies headache(s), Denies night sweats Eyes: Denies change in vision Ears, Nose, Mouth, and Throat: Denies hearing loss Cardiovascular: Denies chest pain, Denies lightheadedness Respiratory: Reports change in phlegm color, Reports cough, Reports excessive phlegm production Gastrointestinal: Reports abdominal pain, Reports loose stools, Reports nausea, Reports vomiting, Denies black, tarry stools, Denies bright, red blood in stools Genitourinary: Denies difficulty urinating Musculoskeletal: Reports back pain Skin/Breast: Denies rash Neurologic: Denies localized weakness Endocrine: Denies rapid, pounding, or irregular heartbeat PMFSH - History History Provided By: Patient - Medical History Medical History: Medical History (Last Reviewed 12/23/17 @ 11:56 by Peri Domínguez) Afib (Chronic) CHF (congestive heart failure) (Chronic) C. difficile diarrhea (Resolved) Pulmonary embolus (Chronic) DVT (deep venous thrombosis) (Chronic) TIA (transient ischemic attack) (Resolved) Pneumonia (Resolved) COPD (chronic obstructive pulmonary disease) (Chronic) - Surgical History Surgical History: Surgical History (Last Reviewed 12/23/17 @ 11:56 by Peri Domínguez) History of ankle surgery (Chronic) - Family History Family History: Family History (Last Updated 12/27/17 @ 21:56 by Gloria Berrios MD, R2) Mother Buerger disease - Social History I have reviewed the patient's Social History: Yes - Tobacco History Second Hand Smoke Exposure: No Tobacco Use In Past 30 Days: No Smoking Status: Former smoker Tobacco Type: Cigarettes - Alcohol History How Often Do You Have a Drink Containing Alcohol: Never - Substance Use History Substance History: No History of Abuse - Travel History Recent Travel in the [facility] Within the Last 8 Weeks: No Recent Travel Out of the Country Within the Last 8 Weeks: No - Immunization History Tetanus Immunization: Unsure Medications and Allergies Active Medications: Active Medications Sodium Chloride (Ns Inj) 1,000 mls @ 0 mls/hr IV.SIG BOLUS JANETTE Last Infusion: 12/27/17 19:12 Dose: Infused Sodium Chloride (Ns Inj) 1,000 mls @ 0 mls/hr IV.SIG BOLUS JANETTE Allergies Allergy/AdvReac Type Severity Reaction Status Date / Time codeine Allergy Severe TURN RED, Verified 12/20/17 10:12 SOB, HIVES ketoconazole Allergy Intermediate Rash Verified 12/20/17 10:12 Iodinated Contrast- Oral and Allergy Hives Verified 12/23/17 18:16 IV Dye [Contrast] albuterol AdvReac Arrhythmias Verified 12/20/17 10:12 Home Medications Medication Instructions Recorded Confirmed Type diltiazem HCl [Cardizem CD] 240 mg PO DAILY 09/14/17 12/27/17 History metoprolol tartrate [Lopressor] 50 mg PO BID 09/14/17 12/27/17 History morphine 15 mg PO Q12H 09/14/17 12/27/17 History oxycodone 10 mg PO Q4HR PRN 09/14/17 12/27/17 History tiotropium bromide [Spiriva with 1 cap INHALATION DAILY 09/14/17 12/27/17 History HandiHaler] Lacto.acidophilus-Bif.animalis 1 cap PO DAILY 11/27/17 12/27/17 History [Probiotic] apixaban [Eliquis] 5 mg PO BID 11/27/17 12/27/17 History aspirin 81 mg PO DAILY 11/27/17 12/27/17 History multivitamin 1 tab PO DAILY 11/27/17 12/27/17 History Exam Vital signs: Vital Signs 12/27/17 17:07 12/27/17 19:14 12/27/17 19:16 Temperature 99.0 F 99.3 F Pulse Rate 102 H 100 H Respiratory Rate 16 16 16 Blood Pressure 148/88 H 140/81 Pulse Oximetry 99 99 Intake & Output 12/27/17 12/27/17 12/28/17 06:59 18:59 06:59 Intake Total 1000 / 1000 Balance 1000 / 1000 Weight 58.967 kg Intake: IV 1000 / 1000 NS Inj 1,000 ML @ Wide Open IV. 1000 / 1000 SIG BOLUS JANETTE Rx#:[id number] Narrative: General: Elderly male in no acute distress HENT: PERRLA, EOMI, no lymphadenopathy, throat clear Cardio: Irregular rate and rhythm, no murmurs rubs or gallops Pulmonary: Mild wheezes throughout all lung martinez Abdomen: Moderate tenderness to palpation in right upper quadrant, positive Rodriguez sign, no rebound, no guarding, nondistended, positive bowel sounds Extremities: Clubbed fingers, no cyanosis or edema Neuro: Alert and oriented x3 Results - Labs Result diagrams: 12/27/17 17:45 12/27/17 17:45 Abnormal lab results 12/27/17 12/27/17 Range/Units 17:45 17:45 RBC 4.13 L (4.50-5.90) mil/mm3 Hgb 10.8 L (13.0-17.0) gm/dL Hct 32.0 L (39.0-51.0) % MCV 77.5 L (80.0-100.0) fL MCH 26.2 L (27.0-34.0) pg RDW 17.9 H (11.6-17.2) % [place] % (Auto) 16.1 H (0.0-8.0) % [place] # (Auto) 1.6 H (0.0-0.9) th/mm3 Sodium 121 L* (136-145) meq/L Chloride 91 L (98-107) meq/L Calcium 8.0 L (8.5-10.1) mg/dL AST 55 H (15-37) U/L Albumin 3.1 L (3.4-5.0) g/dL Short CBC 12/27/17 Range/Units 17:45 WBC 10.1 (4.0-11.0) th/mm3 Hgb 10.8 L (13.0-17.0) gm/dL Hct 32.0 L (39.0-51.0) % Plt Count 387 (150-450) th/mm3 BMP 12/27/17 17:45 Sodium 121 L* Potassium 4.8 Chloride 91 L Carbon Dioxide 21.6 BUN 13 Creatinine 0.75 Calcium 8.0 L Liver Function 12/27/17 Range/Units 17:45 Total Bilirubin 0.4 (0.2-1.0) mg/dL AST 55 H (15-37) U/L ALT 45 (12-78) U/L Alkaline Phosphatase 94 (45-117) U/L Albumin 3.1 L (3.4-5.0) g/dL Urine 12/27/17 Range/Units 18:00 Urine Color Yellow (Yellw/Straw) Urine Clarity Clear (Clear) Urine pH 7.0 (5.0-8.5) Ur Specific [place] 1.015 (1.002-1.035) Urine Protein Negative (Neg-Trace) mg/dL Urine Glucose (UA) Negative (Negative) mg/dL - Imaging Impressions Abdomen/Pelvis CT 12/27/17 18:02 CONCLUSION: 1. CT scan without oral intravenous contrast still does not show etiology of patient's right flank pain. 2. Lack of intravenous and oral contrast does make detection of subtle etiology such as pyonephritis difficult. Caprini VTE Risk Assessment Caprini VTE Risk Assessment: Moderate/High Risk (score >= 2) Caprini Risk Assessment Model: Point Value = 1 Point Value = 2 Point Value = 3 Point Value = 5 Age 41-60 Minor surgery BMI > 25 kg/m2 Swollen legs Varicose veins or History of unexplained or recurrent spontaneous Oral contraceptives or hormone replacement Sepsis (< 1 month) Serious lung disease, including pneumonia (< 1 month) Abnormal pulmonary function Acute myocardial infarction Congestive heart failure (< 1 month) History of inflammatory bowel disease Medical patient at bed rest Age 61-74 Arthroscopic surgery Major open surgery (> 45 min) Laparoscopic surgery (> 45 min) Malignancy Confined to bed (> 72 hours) Immobilizing plaster cast Central venous access Age >= 75 History of VTE Family history of VTE Factor V Leiden Prothrombin [id number] Lupus anticoagulant Anticardiolipin antibodies Elevated serum homocysteine Heparin-induced thrombocytopenia Other congenital or acquired thrombophilia Stroke (< 1 month) Elective arthroplasty Hip, pelvis, or leg fracture Acute spinal cord injury (< 1 month) Prophylaxis Regimen: Total Risk Factor Score Risk Level Prophylaxis Regimen 0-1 Low Early ambulation 2 Moderate Order ONE of the following: *Sequential Compression Device (SCD) *Heparin 5000 units SQ BID 3-4 Higher Order ONE of the following medications: *Heparin 5000 units SQ TID *Enoxaparin/Lovenox 40 mg SQ daily (WT < 150 kg, CrCl > 30 mL/min) *Enoxaparin/Lovenox 30 mg SQ daily (WT < 150 kg, CrCl > 10-29 mL/min) *Enoxaparin/Lovenox 30 mg SQ BID (WT < 150 kg, CrCl > 30 mL/min) AND/OR *Sequential Compression Device (SCD) 5 or more Highest Order ONE of the following medications: *Heparin 5000 units SQ TID (Preferred with Epidurals) *Enoxaparin/Lovenox 40 mg SQ daily (WT < 150 kg, CrCl > 30 mL/min) *Enoxaparin/Lovenox 30 mg SQ daily (WT < 150 kg, CrCl > 10-29 mL/min) *Enoxaparin/Lovenox 30 mg SQ BID (WT < 150 kg, CrCl > 30 mL/min) AND *Sequential Compression Device (SCD) Assessment and Plan - Assessment (1) Hyponatremia Code(s): E87.1 - Hypo-osmolality and hyponatremia Status: Acute Plan: 67-year-old male with past medical history of A. fib on Eliquis, COPD, chronic anemia, thyroid disorder who presented to the ED with complaints of 5-6-day history of abdominal pain and diarrhea. Found to be hyponatremic. -Patient appears to have acute on chronic hyponatremia. -Sodium level today 121 -Unable to order urine sodium and urine osmolality at this time due to patient receiving 1 bolus of normal saline in the ED. -Will correct patient's sodium slowly with normal saline at 100mls/hr -Monitor with BMP every 4 hours -Water restriction < 800ml/24hr (2) Lung nodule Code(s): R91.1 - Solitary pulmonary nodule Status: Acute Plan: Patient with a history of lung nodule. Chest x-ray on 08/14/17 demonstrates a masslike area of parenchymal opacification in the left upper lobe. Unchanged compared to previously dated 01/30/17. It was previously assessed by CT imaging. Masslike density left lung apex measuring 2.9 x 4.7 cm stable compared to previous exam. Stability was suggested that it may be scarring. Patient to follow-up outpatient with field assessor (3) Abdominal pain Code(s): R10.9 - Unspecified abdominal pain Status: Acute Plan: Patient appears to have right-sided abdominal pain radiating to the back. UA negative. Patient is afebrile and denies this year. Unlikely pyelonephritis. Abdominal pain most likely due to diarrhea. Abdomen and pelvis CT without oral IV contrast unable to show etiology of patient's right flank pain. Lipase 294 Patient was positive for Rodriguez sign. Will order ultrasound of gallbladder. (4) Diarrhea Code(s): R19.7 - Diarrhea, unspecified Status: Acute Plan: C. difficile on 12/23/17 negative. Treat with Imodium as needed for diarrhea (5) Afib Code(s): I48.91 - Unspecified atrial fibrillation Status: Chronic Plan: EKG- Afib, no ST-T wave changes Continue patient on Eliquis and metoprolol. (6) COPD (chronic obstructive pulmonary disease) Code(s): J44.9 - Chronic obstructive pulmonary disease, unspecified Status: Chronic Plan: Continue home Spiriva Chest x-ray pending We will obtain sputum culture Will consider adding steroids and azithromycin if needed (7) CHF (congestive heart failure) Code(s): I50.9 - Heart failure, unspecified Status: Chronic Plan: Last echo on 08-16-17 demonstrates EF of 45-50%. Normal left ventricular size. Moderate tricuspid regurgitation. Estimated pulmonary artery pressure of 36.8mmHg. (8) Anemia Code(s): D64.9 - Anemia, unspecified Status: Acute Plan: H/H of 10.8/32.0 MCV of 77.5 Patient with history of chronic anemia Will continue to monitor Transfuse if Hb< 8 due to patient's cardiac history (9) History of ankle surgery Code(s): Z98.890 - Other specified postprocedural states Status: Chronic Plan: Patient with history of ankle surgery. Patient is on chronic opioid meds as a result. Patient follows with pain management. Continue home PO morphine. (10) Nutrition, metabolism, and development symptoms Code(s): R63.8 - Other symptoms and signs concerning food and fluid intake Status: Acute Plan: Fluids: Normal saline 100mls/hr Diet: Cardiac vitals q4h, monitor I & Os DVT ppx: Eliquis (6) COPD (chronic obstructive pulmonary disease) Qualifiers: COPD type: COPD with acute exacerbation Qualified Code(s): J44.1 - Chronic obstructive pulmonary disease with (acute) exacerbation (7) CHF (congestive heart failure) Qualifiers: Heart failure type: unspecified Heart failure chronicity: acute on chronic Qualified Code(s): I50.9 - Heart failure, unspecified
[2017-12-27] MEDS ORDERED: Senna/Docusate Sodium 8.6/50 MG Tablet PO SCH (21:00)
[2017-12-27] MEDS ORDERED: Loperamide 2 MG Capsule PO PRN (21:05)
[2017-12-27] MEDS: Morphine Sulfate 15 MG SR Tablet PO SCH (22:02)
[2017-12-27] MEDS: Tiotropium Bromide 18 MCG/ACT Inhaler INH SCH (23:00)
--- NOTE | 2017-12-27 23:00 | XR ---
EXAM DATE: 12/27/2017 12:00 AM EDT AGE/SEX: 67 years / Male INDICATIONS: . Short of breath CLINICAL DATA: This is the patient's subsequent encounter. Patient reports that signs and symptoms h ave been present for 3 days and indicates a pain score of 0/10. MEDICAL/SURGICAL HISTORY: . Chronic obstructive pulmonary disease. Congestive heart failure. De ep venous thrombosis. Pulmonary embolism None. COMPARISON: [facility], CHEST 2V AP&LAT, 12/20/2017. . FINDINGS: The lungs are moderately hyperinflated. Minimal patchy airspace disease is present in the left upper lobe and left base. There is no pleural effusion. There is no pneumothorax. The heart and pulmonary vascularity are normal. The portion of the bony skeleton visualized is unremarkable. CONCLUSION: Patchy airspace disease left upper lobe and left base. Findings are stable from 12/20/2017. Electronically signed by: James Moreno MD 12/27/2017 10:59 PM EDT
[2017-12-27] MEDS: Metoprolol Tartrate 50 MG Tablet PO SCH (23:09)
[2017-12-27] MEDS: Famotidine 20 MG Tablet PO SCH (23:10)
[2017-12-27] MEDS: Sod Chloride 0.9% Inj 1,000 ML IV.CONT SCH (23:10)
--- NOTE | 2017-12-27 23:16 | US ---
EXAM DATE: 12/27/2017 12:00 AM EDT AGE/SEX: 67 years / Male INDICATIONS: RUQ pain. CLINICAL DATA: This is the patient's initial encounter. Patient reports that signs and symptoms have been present for 2 weeks and indicates a pain score of 8/10. MEDICAL/SURGICAL HISTORY: Congestive heart failure. Chronic obstructive pulmonary disease. De ep venous thrombosis. Pneumonia. TIA. . Ankle surgery. COMPARISON: . MEASUREMENTS: Liver:__ 17.6 cm. Common Bile Duct:__ 3mm. FINDINGS: Liver: Increased echotexture without focal lesion or ductal dilation. Portal Vein: Hepatopedal flow seen in portal vein. Common Duct: No intraluminal mass or stone visualized. Gallbladder: A 5 mm stone is present in the gallbladder with gallbladder wall thickening. No pericho lecystic fluid is seen. Cholecystitis is not excluded. Pancreas: Not well visualized. Right Kidney: Normal echogenicity without evidence of obstruction Other: None. CONCLUSION: Cholelithiasis with gallbladder wall thickening. Cholecystitis is not excluded. Echogenic liver compatible with fatty infiltration or hepatocellular disease. Electronically signed by: Andrew Meza MD 12/27/2017 11:14 PM EDT
[2017-12-27] MEDS ORDERED: Naloxone Inj 0.4 MG/ML Vial IV.PUSH PRN (23:39)
[2017-12-28 00:51] LABS: Anion Gap 7 meq/L (5-15); Blood Urea Nitrogen 11 mg/dL (7-18); Calcium 7.7 mg/dL (8.5-10.1); Carbon Dioxide 25.9 meq/L (21.0-32.0); Chloride 97 meq/L (98-107); Glomerular Filtration Rate Greater Than 89 mL/min (>89); Glucose,Random 92 mg/dL (74-106); Potassium 3.9 meq/L (3.5-5.1); Sodium 130 meq/L (136-145)
[2017-12-28 06:01] LABS: Baso # (Auto) 0.1 th/mm3 (0.0-0.2); Eos # (Auto) 0.1 th/mm3 (0.0-0.4); Eos % (Auto) 1.5 % (0.0-4.0); Hematocrit 31.9 % (39.0-51.0); Hemoglobin 10.6 gm/dL (13.0-17.0); Lymph % (Auto) 35.8 % (9.0-44.0); Mean Corpuscular HGB Conc 33.3 % (32.0-36.0); Mean Corpuscular Hemoglobin 26.1 pg (27.0-34.0); Mean Corpuscular Volume 78.2 fL (80.0-100.0); Mean Platelet Volume 7.6 fL (7.0-11.0); Mono # (Auto) 1.4 th/mm3 (0.0-0.9); Mono % (Auto) 16.6 % (0.0-8.0); Neut # (Auto) 3.7 th/mm3 (1.8-7.7); Neut % (Auto) 45.1 % (16.0-70.0); Platelet Count 339 th/mm3 (150-450); Red Blood Count 4.08 mil/mm3 (4.50-5.90); White Blood Count 8.3 th/mm3 (4.0-11.0)
[2017-12-28 06:25] LABS: Anion Gap 7 meq/L (5-15); Blood Urea Nitrogen 12 mg/dL (7-18); Calcium 7.9 mg/dL (8.5-10.1); Carbon Dioxide 24.6 meq/L (21.0-32.0); Chloride 100 meq/L (98-107); Glomerular Filtration Rate Greater Than 89 mL/min (>89); Glucose,Random 84 mg/dL (74-106); Potassium 4.2 meq/L (3.5-5.1); Sodium 132 meq/L (136-145)
[2017-12-28] MEDS: Tiotropium Bromide 18 MCG/ACT Inhaler INH SCH (09:07)
[2017-12-28] MEDS: dilTIAZem CD 240 MG Capsule PO SCH (09:09)
[2017-12-28] MEDS: Morphine Sulfate 15 MG SR Tablet PO SCH ×2 (09:09→21:21)
[2017-12-28] MEDS: Lactobacillus Acidophilus/L. Spores Tablet PO SCH (09:09)
[2017-12-28] MEDS: Famotidine 20 MG Tablet PO SCH ×2 (09:09→21:23)
[2017-12-28] MEDS: Metoprolol Tartrate 50 MG Tablet PO SCH ×2 (09:09→21:23)
[2017-12-28] MEDS: MethylPREDNISolone Sod Succinate Inj 40 MG/ML Vial IV.PUSH SCH ×2 (12:30→21:24)
[2017-12-28] MEDS: Sod Chloride 0.9% Inj 1,000 ML IV.CONT SCH (12:30)
--- NOTE | 2017-12-28 13:44 | ECG ---
Date Performed: 12/27/2017 Time Performed: 17:32:13 PTAGE: 67 years EKG: ATRIAL FIBRILLATION WITH RAPID VENTRICULAR RESPONSE ABNORMAL RHYTHM ECG PREVIOUS TRACING : 12/20/2017 10.39 Since the previous tracing, no significant change noted DOCTOR: Angel Caldera Interpretating Date/Time 12/28/2017 13:42:42
--- NOTE | 2017-12-28 14:23 | P.PNFP ---
Subjective Interval history: 67 yo male with past medical history of A. fib on Eliquis, COPD, chronic anemia , thyroid disorder admitted for hyponatremia and diarrhea. Today feels better than on admission, improved abdominal pain, but diarrhea is persists. Has 7 loose/watery stools daily. No blood in stool that he notices, but it is darker. He has not had any headaches, visual disturbance (except seeing spots/floaters when he stands too quickly). <Evan Hoffmann - 12/28/17 15:27> Results - Labs Result diagrams: 12/28/17 05:10 12/28/17 05:10 <Alberto Bradshaw - 12/28/17 21:01> Abnormal lab results 12/28/17 12/28/17 12/28/17 Range/Units 00:20 05:10 05:10 RBC 4.08 L (4.50-5.90) mil/mm3 Hgb 10.6 L (13.0-17.0) gm/dL Hct 31.9 L (39.0-51.0) % MCV 78.2 L (80.0-100.0) fL MCH 26.1 L (27.0-34.0) pg RDW 18.0 H (11.6-17.2) % [place] % (Auto) 16.6 H (0.0-8.0) % [place] # (Auto) 1.4 H (0.0-0.9) th/mm3 Sodium 130 L 132 L (136-145) meq/L Chloride 97 L (98-107) meq/L Calcium 7.7 L 7.9 L (8.5-10.1) mg/dL Iron (65-175) mcg/dL % Saturation (20-50) % Ferritin (26-388) ng/mL 12/28/17 Range/Units 05:10 RBC (4.50-5.90) mil/mm3 Hgb (13.0-17.0) gm/dL Hct (39.0-51.0) % MCV (80.0-100.0) fL MCH (27.0-34.0) pg RDW (11.6-17.2) % [place] % (Auto) (0.0-8.0) % [place] # (Auto) (0.0-0.9) th/mm3 Sodium (136-145) meq/L Chloride (98-107) meq/L Calcium (8.5-10.1) mg/dL Iron 41 L (65-175) mcg/dL % Saturation 9.4 L (20-50) % Ferritin 9 L (26-388) ng/mL Short CBC 12/28/17 Range/Units 05:10 WBC 8.3 (4.0-11.0) th/mm3 Hgb 10.6 L (13.0-17.0) gm/dL Hct 31.9 L (39.0-51.0) % Plt Count 339 (150-450) th/mm3 BMP 12/28/17 12/28/17 00:20 05:10 Sodium 130 L 132 L Potassium 3.9 D 4.2 Chloride 97 L 100 Carbon Dioxide 25.9 24.6 BUN 11 12 Creatinine 0.72 0.68 Calcium 7.7 L 7.9 L <Alberto Bradshaw - 12/28/17 21:01> Abnormal lab results 12/27/17 12/27/17 12/28/17 Range/Units 17:45 17:45 00:20 RBC 4.13 L (4.50-5.90) mil/mm3 Hgb 10.8 L (13.0-17.0) gm/dL Hct 32.0 L (39.0-51.0) % MCV 77.5 L (80.0-100.0) fL MCH 26.2 L (27.0-34.0) pg RDW 17.9 H (11.6-17.2) % [place] % (Auto) 16.1 H (0.0-8.0) % [place] # (Auto) 1.6 H (0.0-0.9) th/mm3 Sodium 121 L* 130 L (136-145) meq/L Chloride 91 L 97 L (98-107) meq/L Calcium 8.0 L 7.7 L (8.5-10.1) mg/dL AST 55 H (15-37) U/L Albumin 3.1 L (3.4-5.0) g/dL 12/28/17 12/28/17 Range/Units 05:10 05:10 RBC 4.08 L (4.50-5.90) mil/mm3 Hgb 10.6 L (13.0-17.0) gm/dL Hct 31.9 L (39.0-51.0) % MCV 78.2 L (80.0-100.0) fL MCH 26.1 L (27.0-34.0) pg RDW 18.0 H (11.6-17.2) % [place] % (Auto) 16.6 H (0.0-8.0) % [place] # (Auto) 1.4 H (0.0-0.9) th/mm3 Sodium 132 L (136-145) meq/L Chloride (98-107) meq/L Calcium 7.9 L (8.5-10.1) mg/dL AST (15-37) U/L Albumin (3.4-5.0) g/dL Short CBC 12/27/17 12/28/17 Range/Units 17:45 05:10 WBC 10.1 8.3 (4.0-11.0) th/mm3 Hgb 10.8 L 10.6 L (13.0-17.0) gm/dL Hct 32.0 L 31.9 L (39.0-51.0) % Plt Count 387 339 (150-450) th/mm3 BMP 12/27/17 12/28/17 12/28/17 17:45 00:20 05:10 Sodium 121 L* 130 L 132 L Potassium 4.8 3.9 D 4.2 Chloride 91 L 97 L 100 Carbon Dioxide 21.6 25.9 24.6 BUN 13 11 12 Creatinine 0.75 0.72 0.68 Calcium 8.0 L 7.7 L 7.9 L Liver Function 12/27/17 Range/Units 17:45 Total Bilirubin 0.4 (0.2-1.0) mg/dL AST 55 H (15-37) U/L ALT 45 (12-78) U/L Alkaline Phosphatase 94 (45-117) U/L Albumin 3.1 L (3.4-5.0) g/dL Urine 12/27/17 Range/Units 18:00 Urine Color Yellow (Yellw/Straw) Urine Clarity Clear (Clear) Urine pH 7.0 (5.0-8.5) Ur Specific [place] 1.015 (1.002-1.035) Urine Protein Negative (Neg-Trace) mg/dL Urine Glucose (UA) Negative (Negative) mg/dL <Evan Hoffmann S - 12/28/17 14:23> - Imaging Impressions Chest X-Ray 12/27/17 00:00 CONCLUSION: Patchy airspace disease left upper lobe and left base. Findings are stable from 12/20/2017. Gallbladder Ultrasound 12/27/17 00:00 CONCLUSION: Cholelithiasis with gallbladder wall thickening. Cholecystitis is not excluded. Echogenic liver compatible with fatty infiltration or hepatocellular disease. <Alberto Bradshaw - 12/28/17 21:01> Impressions Chest X-Ray 12/27/17 00:00 CONCLUSION: Patchy airspace disease left upper lobe and left base. Findings are stable from 12/20/2017. Gallbladder Ultrasound 12/27/17 00:00 CONCLUSION: Cholelithiasis with gallbladder wall thickening. Cholecystitis is not excluded. Echogenic liver compatible with fatty infiltration or hepatocellular disease. Abdomen/Pelvis CT 12/27/17 18:02 CONCLUSION: 1. CT scan without oral intravenous contrast still does not show etiology of patient's right flank pain. 2. Lack of intravenous and oral contrast does make detection of subtle etiology such as pyonephritis difficult. <Evan Hoffmann S - 12/28/17 14:23> Physical Exam Vital signs: Vital Signs 12/27/17 22:32 12/27/17 23:00 12/28/17 00:00 Temperature 98.5 F 98.4 F Pulse Rate 86 71 Respiratory Rate 16 17 18 Blood Pressure 126/85 120/73 Pulse Oximetry 98 100 12/28/17 03:37 12/28/17 04:36 12/28/17 06:43 Temperature 97.7 F Pulse Rate 78 Respiratory Rate 17 19 16 Blood Pressure 140/76 Pulse Oximetry 100 12/28/17 07:56 12/28/17 08:14 12/28/17 11:54 Temperature 97.9 F 98.0 F Pulse Rate 75 65 Respiratory Rate 16 16 Blood Pressure 152/82 H 130/78 Pulse Oximetry 100 99 100 12/28/17 16:00 12/28/17 20:00 Temperature 98.1 F 98.4 F Pulse Rate 63 74 Respiratory Rate 16 19 Blood Pressure 125/71 127/63 Pulse Oximetry 100 99 Intake & Output 12/28/17 12/28/17 12/29/17 06:59 18:59 06:59 Intake Total 1000 / 1000 1240 / 1240 650 / 650 Output Total 600 / 600 Balance 1000 / 1000 1240 / 1240 50 / 50 Weight 59.36 kg Intake: IV 1000 / 1000 1000 / 1000 NS Inj 1,000 ML @ 50 mls/hr IV. 1000 / 1000 CONT .Q20H JANETTE Rx#:[id number] NS Inj 1,000 ML @ Wide Open IV. 1000 / 1000 SIG BOLUS JANETTE Rx#:[id number] Oral 240 / 240 650 / 650 Output: Urine 600 / 600 Other: # Voids 4 4 Date of Last Bowel Movement 12/28/17 Weight On Admission 58.967 kg <Alberto Bradshaw - 12/28/17 21:01> Vital Signs 12/27/17 17:07 12/27/17 19:14 12/27/17 19:16 Temperature 99.0 F 99.3 F Pulse Rate 102 H 100 H Respiratory Rate 16 16 16 Blood Pressure 148/88 H 140/81 Pulse Oximetry 99 99 12/27/17 22:32 12/27/17 23:00 12/28/17 00:00 Temperature 98.5 F 98.4 F Pulse Rate 86 71 Respiratory Rate 16 17 18 Blood Pressure 126/85 120/73 Pulse Oximetry 98 100 12/28/17 03:37 12/28/17 04:36 12/28/17 06:43 Temperature 97.7 F Pulse Rate 78 Respiratory Rate 17 19 16 Blood Pressure 140/76 Pulse Oximetry 100 12/28/17 07:56 12/28/17 08:14 12/28/17 11:54 Temperature 97.9 F 98.0 F Pulse Rate 75 65 Respiratory Rate 16 16 Blood Pressure 152/82 H 130/78 Pulse Oximetry 100 99 100 Intake & Output 12/27/17 12/28/17 12/28/17 18:59 06:59 18:59 Intake Total 1000 / 1000 1240 / 1240 Balance 1000 / 1000 1240 / 1240 Weight 58.967 kg 59.36 kg Intake: IV 1000 / 1000 1000 / 1000 NS Inj 1,000 ML @ 50 mls/hr IV. 1000 / 1000 CONT .Q20H JANETTE Rx#:[id number] NS Inj 1,000 ML @ Wide Open IV. 1000 / 1000 SIG BOLUS JANETTE Rx#:[id number] Oral 240 / 240 Other: # Voids 4 Date of Last Bowel Movement 12/28/17 Weight On Admission 58.967 kg <Evan Hoffmann - 12/28/17 14:23> - Constitutional no acute distress <Evan Hoffmann - 12/28/17 15:27> - Routine HEENT Exam Head: Present: normocephalic, atraumatic <Evan Hoffmann - 12/28/17 15:27> - Routine Respiratory Exam Present: CTA bilaterally. Absent: accessory muscle use, wheezes, crackles < Evan Hoffmann - 12/28/17 15:27> - Routine Cardiovascular Exam Present: RRR, S1, S2. Absent: murmur <Evan Hoffmann - 12/28/17 15:27> - Routine Abdominal Exam Present: soft. Absent: tenderness, distended <Evan Hoffmann - 12/28/17 15:27 > - Routine Neurological Exam Present: alert <Evan Hoffmann - 12/28/17 15:27> Assessment and Plan - Assessment (1) Hyponatremia Code(s): E87.1 - Hypo-osmolality and hyponatremia Status: Acute (2) Diarrhea Code(s): R19.7 - Diarrhea, unspecified Status: Acute (3) Abdominal pain Code(s): R10.9 - Unspecified abdominal pain Status: Acute (4) Lung nodule Code(s): R91.1 - Solitary pulmonary nodule Status: Acute (5) Afib Code(s): I48.91 - Unspecified atrial fibrillation Status: Chronic (6) COPD (chronic obstructive pulmonary disease) Code(s): J44.9 - Chronic obstructive pulmonary disease, unspecified Status: Chronic (7) CHF (congestive heart failure) Code(s): I50.9 - Heart failure, unspecified Status: Chronic (8) Anemia Code(s): D64.9 - Anemia, unspecified Status: Acute (9) History of ankle surgery Code(s): Z98.890 - Other specified postprocedural states Status: Chronic (10) Nutrition, metabolism, and development symptoms Code(s): R63.8 - Other symptoms and signs concerning food and fluid intake Status: Acute <Alberto Bradshaw - 12/28/17 21:01> (1) Hyponatremia Code(s): E87.1 - Hypo-osmolality and hyponatremia Status: Acute Plan: Hyponatremia of uncertain etiology but most likely due to GI losses from diarrhea. Could also be SIADH. Sodium level improved to 132 from 121 on admission - continue NS at 50 cc/hr, trend BMP - manage diarrhea as below (2) Diarrhea Code(s): R19.7 - Diarrhea, unspecified Status: Acute Plan: Patient reporting diarrhea x11 days, colonoscopy/EGD/capsule endoscopy 1 year ago normal per patient. Reports mucus but no blood. Also with chronic weight loss over last 3 months C. difficile on 12/23/17 negative WBC normal, afebrile, points away from infectious etiology GI cancer less likely given recent scope - Stool studies: WBC, enteric path PCR, Giardia, repeat C diff, ova/parasite, occult blood - Consult GI regarding additional work-up - Anti-TTG IgA tomorrow AM - Unlikely to be infectious, can give Immodium PRN (3) Abdominal pain Code(s): R10.9 - Unspecified abdominal pain Status: Acute Plan: Patient appears to have right-sided abdominal pain radiating to the back, now improving UA negative, no urinary symptoms Abdominal pain most likely due to diarrhea Abdomen and pelvis CT without oral IV contrast unable to show etiology of patient's right flank pain. Lipase 294 Gallbladder US showed "Cholelithiasis with gallbladder wall thickening. Cholecystitis is not excluded. Echogenic liver compatible with fatty infiltration or hepatocellular disease." - Percocet PRN pain - If abdominal pain worsens/recurs, consider MRCP/ERCP to look for obstructing gallstone versus surgical consult. (4) Lung nodule Code(s): R91.1 - Solitary pulmonary nodule Status: Acute Plan: Patient with a history of lung nodule. Chest x-ray on 08/14/17 demonstrates a masslike area of parenchymal opacification in the left upper lobe. Unchanged compared to previously dated 01/30/17. It was previously assessed by CT imaging. Masslike density left lung apex measuring 2.9 x 4.7 cm stable compared to previous exam. Stability was suggested that it may be scarring. Patient to follow-up outpatient with [facility] (5) Afib Code(s): I48.91 - Unspecified atrial fibrillation Status: Chronic Plan: Patient with chronic AFib EKG- Afib, no ST-T wave changes Continue patient on Eliquis and metoprolol. (6) COPD (chronic obstructive pulmonary disease) Code(s): J44.9 - Chronic obstructive pulmonary disease, unspecified Status: Chronic Plan: Stable, has cough but is not worse/different from baseline Continue home Spiriva (7) CHF (congestive heart failure) Code(s): I50.9 - Heart failure, unspecified Status: Chronic Plan: Last echo on 08-16-17 demonstrates EF of 45-50%. Normal left ventricular size. Moderate tricuspid regurgitation. Estimated pulmonary artery pressure of 36.8mmHg. (8) Anemia Code(s): D64.9 - Anemia, unspecified Status: Acute Plan: H/H stable approx 10 MCV of 77.5 Patient with history of chronic anemia Will continue to monitor Transfuse if Hb< 8 due to patient's cardiac history (9) History of ankle surgery Code(s): Z98.890 - Other specified postprocedural states Status: Chronic Plan: Patient with history of ankle surgery. Patient is on chronic opioid meds as a result. Patient follows with pain management. Continue home PO morphine. (10) Nutrition, metabolism, and development symptoms Code(s): R63.8 - Other symptoms and signs concerning food and fluid intake Status: Acute Plan: Fluids: See above Diet: Cardiac vitals q4h, monitor I & Os DVT ppx: Eliquis <Evan Hoffmann S - 12/28/17 14:55> - Assessment and Plan Discharge Planning: Pending work-up for diarrhea, continued resolution of hyponatremia <Evna Hoffmann S - 12/28/17 15:27> - Attending Attestation The exam, history, and the medical decision-making described in the above note were completed with the assistance of the resident physician. I reviewed and agree with the findings presented. I attest that I had a [id number] encounter with the patient on the same day, and personally performed and documented my assessment and findings in the medical record. <Alberto Bradshaw - 12/28/17 21:01> <Evan Hoffmann S - Last Filed: 12/28/17 14:55> (6) COPD (chronic obstructive pulmonary disease) Qualifiers: COPD type: COPD with acute exacerbation Qualified Code(s): J44.1 - Chronic obstructive pulmonary disease with (acute) exacerbation (7) CHF (congestive heart failure) Qualifiers: Heart failure type: unspecified Heart failure chronicity: acute on chronic Qualified Code(s): I50.9 - Heart failure, unspecified <Alberto Bradshaw - Last Filed: 12/28/17 21:01> (6) COPD (chronic obstructive pulmonary disease) Qualifiers: COPD type: COPD with acute exacerbation Qualified Code(s): J44.1 - Chronic obstructive pulmonary disease with (acute) exacerbation (7) CHF (congestive heart failure) Qualifiers: Heart failure type: unspecified Heart failure chronicity: acute on chronic Qualified Code(s): I50.9 - Heart failure, unspecified <Evan Hoffmann S - Last Filed: 12/28/17 14:55> (6) COPD (chronic obstructive pulmonary disease) Qualifiers: COPD type: COPD with acute exacerbation Qualified Code(s): J44.1 - Chronic obstructive pulmonary disease with (acute) exacerbation (7) CHF (congestive heart failure) Qualifiers: Heart failure type: unspecified Heart failure chronicity: acute on chronic Qualified Code(s): I50.9 - Heart failure, unspecified <Alberto Bradshaw - Last Filed: 12/28/17 21:01> (6) COPD (chronic obstructive pulmonary disease) Qualifiers: COPD type: COPD with acute exacerbation Qualified Code(s): J44.1 - Chronic obstructive pulmonary disease with (acute) exacerbation (7) CHF (congestive heart failure) Qualifiers: Heart failure type: unspecified Heart failure chronicity: acute on chronic Qualified Code(s): I50.9 - Heart failure, unspecified
[2017-12-28 17:38] LABS: % Iron Saturation 9.4 % (20-50)
[2017-12-29] MEDS: Sod Chloride 0.9% Inj 1,000 ML IV.CONT SCH ×2 (03:10→20:06)
[2017-12-29 07:42] LABS: Baso % (Auto) 0.4 % (0.0-2.0); Eos % (Auto) 0.1 % (0.0-4.0); Lymph # (Auto) 1.6 th/mm3 (1.0-4.8); Lymph % (Auto) 20.7 % (9.0-44.0); Mean Corpuscular HGB Conc 32.1 % (32.0-36.0); Mean Corpuscular Hemoglobin 25.8 pg (27.0-34.0); Mean Corpuscular Volume 80.4 fL (80.0-100.0); Mean Platelet Volume 7.7 fL (7.0-11.0); Mono # (Auto) 0.9 th/mm3 (0.0-0.9); Mono % (Auto) 11.3 % (0.0-8.0); Neut # (Auto) 5.4 th/mm3 (1.8-7.7); Neut % (Auto) 67.5 % (16.0-70.0); Platelet Count 335 th/mm3 (150-450); Red Blood Count 3.85 mil/mm3 (4.50-5.90); Red Cell Distribution Width 18.2 % (11.6-17.2)
[2017-12-29 07:59] LABS: Anion Gap 9 meq/L (5-15); Blood Urea Nitrogen 15 mg/dL (7-18); Calcium 8.3 mg/dL (8.5-10.1); Carbon Dioxide 25.4 meq/L (21.0-32.0); Chloride 98 meq/L (98-107); Glomerular Filtration Rate Greater Than 89 mL/min (>89); Glucose,Random 102 mg/dL (74-106); Potassium 5.2 meq/L (3.5-5.1); Sodium 132 meq/L (136-145)
[2017-12-29] MEDS: Lactobacillus Acidophilus/L. Spores Tablet PO SCH (09:08)
[2017-12-29] MEDS: dilTIAZem CD 240 MG Capsule PO SCH (09:08)
[2017-12-29] MEDS: MethylPREDNISolone Sod Succinate Inj 40 MG/ML Vial IV.PUSH SCH ×3 (09:08→20:08)
[2017-12-29] MEDS: Famotidine 20 MG Tablet PO SCH ×2 (09:08→20:08)
[2017-12-29] MEDS: Metoprolol Tartrate 50 MG Tablet PO SCH (09:08)
[2017-12-29] MEDS: Ferrous Sulfate 325 MG Tablet PO SCH (09:09)
[2017-12-29] MEDS: Tiotropium Bromide 18 MCG/ACT Inhaler INH SCH (09:09)
--- NOTE | 2017-12-29 10:32 | P.PNFP ---
Subjective Interval history: No acute events overnight. Patient lying in bed. States that he has been very anxious this morning. Requesting something to calm his nerves before he goes for his nuclear scan. States that his anxiety has worsened due to being in a closed room without windows. He has also having a lot of family issues as well that is contributing to his anxiety. He is disappointed that he did not receive his pain medication this morning due to the scan. Also states that he is very hungry as well. States that he is only had one bowel movement yesterday and his stools are transition from loose, watery to firm. Still complains of right upper quadrant abdominal pain. No chest pain, shortness of breath, and fevers. Results - Labs Result diagrams: 12/29/17 05:50 12/29/17 05:50 Abnormal lab results 12/28/17 12/29/17 12/29/17 Range/Units 05:10 05:50 05:50 RBC 3.85 L (4.50-5.90) mil/mm3 Hgb 10.0 L (13.0-17.0) gm/dL Hct 31.0 L (39.0-51.0) % MCH 25.8 L (27.0-34.0) pg RDW 18.2 H (11.6-17.2) % [place] % (Auto) 11.3 H (0.0-8.0) % Sodium 132 L (136-145) meq/L Potassium 5.2 H D (3.5-5.1) meq/L Calcium 8.3 L (8.5-10.1) mg/dL Iron 41 L (65-175) mcg/dL % Saturation 9.4 L (20-50) % Ferritin 9 L (26-388) ng/mL Short CBC 12/29/17 Range/Units 05:50 WBC 8.0 (4.0-11.0) th/mm3 Hgb 10.0 L (13.0-17.0) gm/dL Hct 31.0 L (39.0-51.0) % Plt Count 335 (150-450) th/mm3 BMP 12/29/17 05:50 Sodium 132 L Potassium 5.2 H D Chloride 98 Carbon Dioxide 25.4 BUN 15 Creatinine 0.68 Calcium 8.3 L Physical Exam Vital signs: Vital Signs 12/28/17 11:54 12/28/17 16:00 12/28/17 19:20 Temperature 98.0 F 98.1 F Pulse Rate 65 63 Respiratory Rate 16 16 16 Blood Pressure 130/78 125/71 Pulse Oximetry 100 100 12/28/17 20:00 12/28/17 22:00 12/29/17 00:00 Temperature 98.4 F 98.1 F Pulse Rate 74 60 Respiratory Rate 19 16 19 Blood Pressure 127/63 114/67 Pulse Oximetry 99 100 12/29/17 07:33 Temperature 98.7 F Pulse Rate 58 L Respiratory Rate 12 Blood Pressure 115/56 L Pulse Oximetry 100 Intake & Output 12/28/17 12/29/17 12/29/17 18:59 06:59 18:59 Intake Total 1240 / 1240 1150 / 1150 Output Total 1600 / 1600 Balance 1240 / 1240 -450 / -450 Intake: IV 1000 / 1000 300 / 300 NS Inj 1,000 ML @ 50 mls/hr IV. 1000 / 1000 300 / 300 CONT .Q20H JANETTE Rx#:[id number] Oral 240 / 240 850 / 850 Output: Urine 1600 / 1600 Other: # Voids 4 3 Date of Last Bowel Movement 12/28/17 12/28/17 # Bowel Movements 1 Narrative: General: Elderly male in no acute distress Cardio: Irregular rate and rhythm, no murmurs rubs or gallops Pulmonary: Mild wheezes throughout all lung [place] Abdomen: Moderate tenderness to palpation in right upper quadrant, no rebound, no guarding, nondistended, positive bowel sounds Extremities: Clubbed fingers, no cyanosis or edema Neuro: Alert and oriented x3 Assessment and Plan - Assessment (1) Hyponatremia Code(s): E87.1 - Hypo-osmolality and hyponatremia Status: Acute Plan: Hyponatremia of uncertain etiology but most likely due to GI losses from diarrhea. Could also be SIADH. Sodium level improved to 132 from 121 on admission - continue NS at 50 cc/hr, trend BMP - manage diarrhea as below (2) Diarrhea Code(s): R19.7 - Diarrhea, unspecified Status: Acute Plan: Patient reporting diarrhea x11 days, colonoscopy/EGD/capsule endoscopy 1 year ago normal per patient. Reports mucus but no blood. Also with chronic weight loss over last 3 months C. difficile on 12/23/17 negative WBC normal, afebrile, points away from infectious etiology GI cancer less likely given recent scope - Stool studies: WBC, enteric path PCR, Giardia, repeat C diff, ova/parasite, occult blood pending - Anti-TTG IgA pending - Repeat C.difficle pending - Consult GI regarding additional work-up -NM hepatobiliary scan pending - Unlikely to be infectious, can give Immodium PRN (3) Abdominal pain Code(s): R10.9 - Unspecified abdominal pain Status: Acute Plan: Patient appears to have right-sided abdominal pain radiating to the back, now improving UA negative, no urinary symptoms Abdominal pain most likely due to diarrhea Abdomen and pelvis CT without oral IV contrast unable to show etiology of patient's right flank pain. Lipase 294 Gallbladder US showed "Cholelithiasis with gallbladder wall thickening. Cholecystitis is not excluded. Echogenic liver compatible with fatty infiltration or hepatocellular disease." - Percocet PRN pain - NM hepatobiliary pending (4) Lung nodule Code(s): R91.1 - Solitary pulmonary nodule Status: Acute Plan: Patient with a history of lung nodule. Chest x-ray on 08/14/17 demonstrates a masslike area of parenchymal opacification in the left upper lobe. Unchanged compared to previously dated 01/30/17. It was previously assessed by CT imaging. Masslike density left lung apex measuring 2.9 x 4.7 cm stable compared to previous exam. Stability was suggested that it may be scarring. Patient to follow-up outpatient with [facility] (5) Afib Code(s): I48.91 - Unspecified atrial fibrillation Status: Chronic Plan: Patient with chronic AFib EKG- Afib, no ST-T wave changes Continue patient on Eliquis and metoprolol. (6) COPD (chronic obstructive pulmonary disease) Code(s): J44.9 - Chronic obstructive pulmonary disease, unspecified Status: Chronic Plan: Stable, has cough but is not worse/different from baseline Continue home Spiriva (7) CHF (congestive heart failure) Code(s): I50.9 - Heart failure, unspecified Status: Chronic Plan: Last echo on 08-16-17 demonstrates EF of 45-50%. Normal left ventricular size. Moderate tricuspid regurgitation. Estimated pulmonary artery pressure of 36.8mmHg. (8) Anemia Code(s): D64.9 - Anemia, unspecified Status: Acute Plan: H/H stable approx 10 MCV of 77.5-80.4 Ferritin 9, Iron 41, TIBC 437 -Start patient on ferrous sulfate Will continue to monitor Transfuse if Hb< 8 due to patient's cardiac history (9) History of ankle surgery Code(s): Z98.890 - Other specified postprocedural states Status: Chronic Plan: Patient with history of ankle surgery. Patient is on chronic opioid meds as a result. Patient follows with pain management. Continue home PO morphine. (10) Nutrition, metabolism, and development symptoms Code(s): R63.8 - Other symptoms and signs concerning food and fluid intake Status: Acute Plan: Fluids: See above Diet: Cardiac vitals q4h, monitor I & Os DVT ppx: Eliquis Dispo: Awaiting results of NM hepatobiliary scan, await GI clearance, patient could be discharge today and follow up outpatient with GI possibly (6) COPD (chronic obstructive pulmonary disease) Qualifiers: COPD type: COPD with acute exacerbation Qualified Code(s): J44.1 - Chronic obstructive pulmonary disease with (acute) exacerbation (7) CHF (congestive heart failure) Qualifiers: Heart failure type: unspecified Heart failure chronicity: acute on chronic Qualified Code(s): I50.9 - Heart failure, unspecified
[2017-12-29 10:52] LABS: Folate 17.2 ng/mL (3.1-17.5)
[2017-12-29] MEDS: Morphine Sulfate 15 MG SR Tablet PO SCH ×2 (11:48→20:08)
[2017-12-29 13:50] LABS: Immunoglobulin A 264 mg/dL (98-543)
--- NOTE | 2017-12-29 14:04 | NM ---
EXAM DATE: 12/29/2017 12:00 AM EDT AGE/SEX: 67 years / Male INDICATIONS: Right upper quadrant pain. CLINICAL DATA: This is the patient's initial encounter. Patient reports that signs and symptoms have been present for 1 day and indicates a pain score of 0/10. MEDICAL/SURGICAL HISTORY: Chronic obstructive pulmonary disease. Congestive heart failure. Atr ial fibrillation. . Ankle surgery. [place] [facility] [place] CONTRAST, 12/27/2017. . DOSE: 4.1 mCi Tc-99m mebrofenin i.v. TECHNIQUE: Following the intravenous administration of radiotracer, dynamic sequential images were pe rformed with continuous acquisition. Time-activity curves were generated. FINDINGS: There is prompt hepatic uptake of radiotracer. Excretion is somewhat delayed with appearance and extr ahepatic biliary tree and gallbladder by 20-30 minutes. Scanning was continued for a total of an hour at which point the patient refused additional imaging. Small bowel activity is not seen. CONCLUSION: 1. The gallbladder and extrahepatic biliary tree is visualized, however small bowel activity is not seen in 60 minutes of scanning. 2. This may reflect sphincter of Mal spasm as potentially associated with narcotic medication admi nistration with obstructive process not excluded but felt less likely Electronically signed by: Dominic Epstein MD 12/29/2017 2:03 PM EDT
[2017-12-29] MEDS ORDERED: clonazePAM 1 MG Tablet PO PRN (15:40)
--- NOTE | 2017-12-29 16:58 | P.PNGI ---
Subjective Interval history: Pt c/o being hungry. He states the RUQ pain feels better when eats. No further diarrhea. HIDA scan showed GB viz but pt could not lie any longer to complete test because he had to use the BR. Physical Exam Vital signs: Vital Signs 12/28/17 19:20 12/28/17 20:00 12/28/17 22:00 Temperature 98.4 F Pulse Rate 74 Respiratory Rate 16 19 16 Blood Pressure 127/63 Pulse Oximetry 99 12/29/17 00:00 12/29/17 07:33 12/29/17 11:52 Temperature 98.1 F 98.7 F 97.9 F Pulse Rate 60 58 L 66 Respiratory Rate 19 12 16 Blood Pressure 114/67 115/56 L 122/62 Pulse Oximetry 100 100 100 12/29/17 15:40 Temperature 98.5 F Pulse Rate 54 L Respiratory Rate 16 Blood Pressure 106/59 L Pulse Oximetry 100 Intake & Output 12/28/17 12/29/17 12/29/17 18:59 06:59 18:59 Intake Total 1240 / 1240 1150 / 1150 Output Total 1600 / 1600 Balance 1240 / 1240 -450 / -450 Intake: IV 1000 / 1000 300 / 300 NS Inj 1,000 ML @ 50 mls/hr IV. 1000 / 1000 300 / 300 CONT .Q20H JANETTE Rx#:[id number] Oral 240 / 240 850 / 850 Output: Urine 1600 / 1600 Other: # Voids 4 3 Date of Last Bowel Movement 12/28/17 12/28/17 12/28/17 # Bowel Movements 1 Narrative: Abd soft with moderate RUQ tenderness. - Constitutional no acute distress Results - Labs CBC & Chem 7: 12/29/17 05:50 12/29/17 05:50 Laboratory Results - last 24 hr 12/28/17 12/29/17 12/29/17 05:10 05:50 05:50 WBC 8.0 RBC 3.85 L Hgb 10.0 L Hct 31.0 L MCV 80.4 MCH 25.8 L MCHC 32.1 RDW 18.2 H Plt Count 335 MPV 7.7 Neut % (Auto) 67.5 Lymph % (Auto) 20.7 [place] % (Auto) 11.3 H Eos % (Auto) 0.1 Baso % (Auto) 0.4 Neut # (Auto) 5.4 Lymph # (Auto) 1.6 [place] # (Auto) 0.9 Eos # (Auto) 0.0 Baso # (Auto) 0.0 WBC Differential . Differential Comment Auto diff final Sodium 132 L Potassium 5.2 H D Chloride 98 Carbon Dioxide 25.4 Anion Gap 9 BUN 15 Creatinine 0.68 Estimated GFR Greater than 89 Random Glucose 102 Calcium 8.3 L Iron 41 L TIBC 437 % Saturation 9.4 L Ferritin 9 L Vitamin B12 Folate IgA 264 12/29/17 05:50 WBC RBC Hgb Hct MCV MCH MCHC RDW Plt Count MPV Neut % (Auto) Lymph % (Auto) [place] % (Auto) Eos % (Auto) Baso % (Auto) Neut # (Auto) Lymph # (Auto) [place] # (Auto) Eos # (Auto) Baso # (Auto) WBC Differential Differential Comment Sodium Potassium Chloride Carbon Dioxide Anion Gap BUN Creatinine Estimated GFR Random Glucose Calcium Iron TIBC % Saturation Ferritin Vitamin B12 415 Folate 17.2 IgA Microbiology 12/28/17 10:58 Sputum - Expectorated Sputum Gram Stain - Final 12/28/17 10:58 Sputum - Expectorated Sputum Sputum Culture - Preliminary Heavy growth normal respiratory matthew at 24 hours - Imaging Impressions Hepatobiliary Scan Nuclear Medicine 12/29/17 00:00 CONCLUSION: 1. The gallbladder and extrahepatic biliary tree is visualized, however small bowel activity is not seen in 60 minutes of scanning. 2. This may reflect sphincter of Mal spasm as potentially associated with narcotic medication administration with obstructive process not excluded but felt less likely Assessment and Plan (1) Diarrhea Status: Acute Code(s): R19.7 - Diarrhea, unspecified (2) Abdominal pain Status: Acute Code(s): R10.9 - Unspecified abdominal pain - Plan I discussed with pt that may still have biliary dyskinesia as etiology of his RUQ pain but suggest treat him for possible PUD with H2RA or a PPI and no NSAIDS. OK to discharge home and will have him f/u in my office once receive records from Dr Hernandez.
[2017-12-29 19:58] VITALS: O2SAT 100
[2017-12-30] MEDS: Sod Chloride 0.9% Inj 1,000 ML IV.CONT SCH (02:17)
[2017-12-30 06:40] LABS: Baso % (Auto) 0.3 % (0.0-2.0); Eos # (Auto) 0.1 th/mm3 (0.0-0.4); Eos % (Auto) 1.3 % (0.0-4.0); Hematocrit 31.7 % (39.0-51.0); Hemoglobin 10.4 gm/dL (13.0-17.0); Lymph # (Auto) 3.4 th/mm3 (1.0-4.8); Lymph % (Auto) 33.1 % (9.0-44.0); Mean Corpuscular HGB Conc 32.9 % (32.0-36.0); Mean Corpuscular Volume 78.8 fL (80.0-100.0); Mean Platelet Volume 7.6 fL (7.0-11.0); Mono # (Auto) 1.3 th/mm3 (0.0-0.9); Mono % (Auto) 12.6 % (0.0-8.0); Neut # (Auto) 5.5 th/mm3 (1.8-7.7); Neut % (Auto) 52.7 % (16.0-70.0); Platelet Count 350 th/mm3 (150-450); Red Blood Count 4.02 mil/mm3 (4.50-5.90); Red Cell Distribution Width 17.9 % (11.6-17.2); White Blood Count 10.4 th/mm3 (4.0-11.0)
[2017-12-30 07:01] LABS: Anion Gap 8 meq/L (5-15); Blood Urea Nitrogen 19 mg/dL (7-18); Calcium 7.9 mg/dL (8.5-10.1); Carbon Dioxide 26.3 meq/L (21.0-32.0); Chloride 98 meq/L (98-107); Glomerular Filtration Rate Greater Than 89 mL/min (>89); Glucose,Random 84 mg/dL (74-106); Potassium 4.4 meq/L (3.5-5.1); Sodium 132 meq/L (136-145)
[2017-12-30 09:42] VITALS: BP 146/68; PULSE 73; RESP 16; TEMP 97.8
--- NOTE | 2017-12-30 10:13 | P.PNFP ---
Subjective Interval history: Patient was bradycardic around 57 overnight. Metoprolol was held. Patient's heart rate improved to 88. Patient lying in bed this morning. States that he is ready to go home. He does complain of some irritation around his sacrum from sitting in the bed so long. Discussed with patient about sending him home on a PPI and following up outpatient with GI. Patient is agreeable. States that he also missed his appointment with his pain management doctor this week. Is wondering if we could give him some pain medicines for a few days. Upon review in E-fore, patient should have enough pain medications to last him until his next appointment with his pain management doctor, which is next Thursday. Patient reports that he did have 1 bowel movement yesterday, more firm he describes. Still endorses some moderate right upper gastric tenderness. No other complaints. Denies fevers, chest pain, shortness of breath, and nausea vomiting. Results - Labs Result diagrams: 12/30/17 05:45 12/30/17 05:45 Abnormal lab results 12/30/17 12/30/17 Range/Units 05:45 05:45 RBC 4.02 L (4.50-5.90) mil/mm3 Hgb 10.4 L (13.0-17.0) gm/dL Hct 31.7 L (39.0-51.0) % MCV 78.8 L (80.0-100.0) fL MCH 26.0 L (27.0-34.0) pg RDW 17.9 H (11.6-17.2) % [place] % (Auto) 12.6 H (0.0-8.0) % [place] # (Auto) 1.3 H (0.0-0.9) th/mm3 Sodium 132 L (136-145) meq/L BUN 19 H (7-18) mg/dL Calcium 7.9 L (8.5-10.1) mg/dL Short CBC 12/30/17 Range/Units 05:45 WBC 10.4 (4.0-11.0) th/mm3 Hgb 10.4 L (13.0-17.0) gm/dL Hct 31.7 L (39.0-51.0) % Plt Count 350 (150-450) th/mm3 BMP 12/30/17 05:45 Sodium 132 L Potassium 4.4 D Chloride 98 Carbon Dioxide 26.3 BUN 19 H Creatinine 0.76 Calcium 7.9 L - Imaging Impressions Hepatobiliary Scan Nuclear Medicine 12/29/17 00:00 CONCLUSION: 1. The gallbladder and extrahepatic biliary tree is visualized, however small bowel activity is not seen in 60 minutes of scanning. 2. This may reflect sphincter of Mal spasm as potentially associated with narcotic medication administration with obstructive process not excluded but felt less likely Physical Exam Vital signs: Vital Signs 12/29/17 11:52 12/29/17 15:40 12/29/17 17:49 Temperature 97.9 F 98.5 F Pulse Rate 66 54 L Respiratory Rate 16 16 Blood Pressure 122/62 106/59 L 123/57 L Pulse Oximetry 100 100 52 L 12/29/17 19:54 12/29/17 23:22 12/30/17 04:00 Temperature 97.8 F 98.0 F 97.4 F L Pulse Rate 65 57 L 88 Respiratory Rate 19 19 19 Blood Pressure 129/64 134/73 130/70 Pulse Oximetry 100 100 100 12/30/17 09:39 Temperature 97.8 F Pulse Rate 73 Respiratory Rate 16 Blood Pressure 146/68 H Pulse Oximetry 100 Intake & Output 12/29/17 12/30/17 12/30/17 18:59 06:59 18:59 Intake Total 1720 / 1720 Output Total 2200 / 2200 Balance -480 / -480 Intake: IV 700 / 700 NS Inj 1,000 ML @ 50 mls/hr IV. 700 / 700 CONT .Q20H JANETTE Rx#:[id number] Oral 1020 / 1020 Output: Urine 2200 / 2200 Other: # Voids 6 Date of Last Bowel Movement 12/28/17 12/29/17 Narrative: General: Elderly male in no acute distress Cardio: Irregular rate and rhythm, no murmurs rubs or gallops Pulmonary: Mild wheezes throughout all lung martinez Abdomen: Moderate tenderness to palpation in right upper quadrant, no rebound, no guarding, nondistended, positive bowel sounds Extremities: Clubbed fingers, no cyanosis or edema Neuro: Alert and oriented x3 Assessment and Plan - Assessment (1) Hyponatremia Code(s): E87.1 - Hypo-osmolality and hyponatremia Status: Acute Plan: Hyponatremia of uncertain etiology but most likely due to GI losses from diarrhea. Could also be SIADH. Sodium level improved to 132 from 121 on admission -Patient's baseline seems to be sodium level at 132 -Patient is currently asymptomatic. Monitor with BMP as an outpatient. (2) Abdominal pain Code(s): R10.9 - Unspecified abdominal pain Status: Acute Plan: Patient reporting diarrhea x11 days, colonoscopy/EGD/capsule endoscopy 1 year ago normal per patient. Reports mucus but no blood. Also with chronic weight loss over last 3 months C. difficile on 12/23/17 negative WBC normal, afebrile, points away from infectious etiology GI cancer less likely given recent scope - Stool studies: WBC, enteric path PCR, Giardia, repeat C diff, ova/parasite, occult blood pending - Anti-TTG IgA pending - Repeat C.difficle pending -GI consulted, appreciate recommendations -Hepatobiliary Scan Nuclear Medicine 12/29/17 00:00 CONCLUSION: 1. The gallbladder and extrahepatic biliary tree is visualized, however small bowel activity is not seen in 60 minutes of scanning. 2. This may reflect sphincter of Mal spasm as potentially associated with narcotic medication administration with obstructive process not excluded but felt less likely -Suggest patient to be treated for possible PUD with H2 RA or a PPI and no NSAIDs. Will send patient home on Protonix p.o. 40 mg twice daily. -Cleared from GI standpoint. Patient will follow up with after discharge. (3) Lung nodule Code(s): R91.1 - Solitary pulmonary nodule Status: Acute Plan: Patient with a history of lung nodule. Chest x-ray on 08/14/17 demonstrates a masslike area of parenchymal opacification in the left upper lobe. Unchanged compared to previously dated 01/30/17. It was previously assessed by CT imaging. Masslike density left lung apex measuring 2.9 x 4.7 cm stable compared to previous exam. Stability was suggested that it may be scarring. Patient to follow-up outpatient with route returner (4) Afib Code(s): I48.91 - Unspecified atrial fibrillation Status: Chronic Plan: Patient with chronic AFib EKG- Afib, no ST-T wave changes Continue patient on Eliquis and metoprolol. (5) COPD (chronic obstructive pulmonary disease) Code(s): J44.9 - Chronic obstructive pulmonary disease, unspecified Status: Chronic Plan: Stable, has cough but is not worse/different from baseline Continue home Spiriva (6) CHF (congestive heart failure) Code(s): I50.9 - Heart failure, unspecified Status: Chronic Plan: Last echo on 08-16-17 demonstrates EF of 45-50%. Normal left ventricular size. Moderate tricuspid regurgitation. Estimated pulmonary artery pressure of 36.8mmHg. (7) Anemia Code(s): D64.9 - Anemia, unspecified Status: Acute Plan: H/H stable MCV of 77.5-80.4 Ferritin 9, Iron 41, TIBC 437 Continue ferrous sulfate 325 mg twice daily, patient to have iron panel checked within 1 month at PCP (8) History of ankle surgery Code(s): Z98.890 - Other specified postprocedural states Status: Chronic Plan: Patient with history of ankle surgery. Patient is on chronic opioid meds as a result. Patient follows with pain management. Continue home PO morphine. (9) Nutrition, metabolism, and development symptoms Code(s): R63.8 - Other symptoms and signs concerning food and fluid intake Status: Acute Plan: Fluids: See above Diet: Cardiac vitals q4h, monitor I & Os DVT ppx: Eliquis Dispo: Clear from GI standpoint. Discharge today with Protonix and ferrous sulfate. Follow-up with GI and PCP as outpatient. (5) COPD (chronic obstructive pulmonary disease) Qualifiers: COPD type: COPD with acute exacerbation Qualified Code(s): J44.1 - Chronic obstructive pulmonary disease with (acute) exacerbation (6) CHF (congestive heart failure) Qualifiers: Heart failure type: unspecified Heart failure chronicity: acute on chronic Qualified Code(s): I50.9 - Heart failure, unspecified
[2017-12-30] MEDS: dilTIAZem CD 240 MG Capsule PO SCH (10:31)
[2017-12-30] MEDS: Famotidine 20 MG Tablet PO SCH (10:32)
[2017-12-30] MEDS: Ferrous Sulfate 325 MG Tablet PO SCH (10:32)
[2017-12-30] MEDS: Lactobacillus Acidophilus/L. Spores Tablet PO SCH (10:32)
[2017-12-30] MEDS: MethylPREDNISolone Sod Succinate Inj 40 MG/ML Vial IV.PUSH SCH (10:32)
[2017-12-30] MEDS: Morphine Sulfate 15 MG SR Tablet PO SCH (10:32)
[2017-12-30] MEDS: Tiotropium Bromide 18 MCG/ACT Inhaler INH SCH (10:33)
--- NOTE | 2017-12-30 16:49 | P.DS ---
Date of admission: 12/27/17 20:57 Primary care physician: Chance Tarango MD Brief History from admission: 67-year-old male with past medical history of A. fib on Eliquis, COPD, chronic anemia, thyroid disorder who presented to the ED with complaints of 5-6-day history of abdominal pain and diarrhea. Patient recently went to the ED 4 days ago for similar symptoms. CT of the abdomen and pelvis revealed no acute findings. Patient experienced hives after receiving contrast. C. difficile was negative. Patient's sodium was also mildly low at 128. Patient's symptoms resolved after receiving IV fluids, morphine, and Zofran. Patient was discharged with 5-day course of prednisone and ranitidine and was told to follow -up with his primary care doctor. Patient states that his primary care doctor did not have a appointment until February. Patient continued to have worsening of right-sided, intermittent, stabbing abdominal/flank pain as well as explosive nonbloody, watery diarrhea. Patient states that his abdominal pain is better when he lays down and has a bowel movement. He reports that his pain is worse with movement. Patient endorses a low-grade fever about 99-100, nausea , and one episode of nonbloody, nonbilious vomiting this morning. He also endorses shortness of breath related to COPD. He states that his sputum has been a little worse in amount and color. Also reports he has lost 30 pounds in the last 6-7 months. Patient reports history of a left lung nodule. According to recent chest x-rays on past admissions, patient's lung nodule was stable. He denies chest pain, recent use of antibiotics, dysuria, urinary urgency. PMHx: COPD Afib on Eliquis CHF Hx of PE and DVT HTN Chronic pain- right ankle History of C. difficile in the past Meds: Ranitidine 150 mg twice daily Multivitamin Apixaban 5 mg p.o. 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 Tamiko Jolleymonalis: Dr. Jules Tobacco Conditioner, Dr. Clay DS: Diagnosis - Discharge Diagnosis (1) Hyponatremia Status: Acute (2) Abdominal pain Status: Acute (3) Lung nodule Status: Acute (4) Afib Status: Chronic (5) COPD (chronic obstructive pulmonary disease) Status: Chronic (6) CHF (congestive heart failure) Status: Chronic (7) Anemia Status: Acute (8) History of ankle surgery Status: Chronic (9) Nutrition, metabolism, and development symptoms Status: Acute DS: Medications - Discharge Medications Prescriptions: ferrous sulfate [Iron (ferrous sulfate)] 325 mg PO BID #90 tab pantoprazole [Protonix] 40 mg PO BID #90 tab DS: Summary Hospital Course: 67-year-old male with history of COPD, CHF, A. fib presents the ED on 12/27 for symptomatic hyponatremia and diarrhea. His baseline seems to be around 132. Patient sodium level on admission was 121. Patient sodium was corrected slowly and improved to 132 during hospital stay. There may be concerns for SIADH. She has a history of a lung nodule. Chest x-ray on 08/14/17 history of a masslike area of parenchymal opacification in the left upper lobe. Unchanged compared to previous study dated x-ray on 01/30/17. It was previously excessive by CT scanning. Stability was suggested that may be scarring. Patient to follow-up outpatient with testing director. Patient continued to be asymptomatic during hospital stay. As far as abdominal pain and diarrhea, GI was consulted. Patient was negative for C. difficile, stool studies WBC, enteric path, Giardia, repeat C. difficile, ova/ parasites, occult blood are all negative. patient Tissue transglutaminase IgA elevated at 9.9, IgG normal. Hepatobiliary nuclear scan on 12/29 staes that sphincter of mk spasm. GI suggested that patient be treated for possible PUD. Patient was sent home on Protonix 40 mg twice daily. Patient was cleared from a GI standpoint. Patient continued to have improvement in diarrhea throughout hospital stay. Patient to follow-up with after discharge. - Time Spent with Patient Total time spent providing and/or coordinating discharge services: Less than 30 minutes - Quality: VTE Deep Vein Thrombosis/Pulmonary Embolism Present on Admission: No Exam Vital signs: Vital Signs 12/29/17 17:49 12/29/17 19:54 12/29/17 23:22 Temperature 97.8 F 98.0 F Pulse Rate 65 57 L Respiratory Rate 19 19 Blood Pressure 123/57 L 129/64 134/73 Pulse Oximetry 52 L 100 100 12/30/17 04:00 12/30/17 09:39 Temperature 97.4 F L 97.8 F Pulse Rate 88 73 Respiratory Rate 19 16 Blood Pressure 130/70 146/68 H Pulse Oximetry 100 100 Intake & Output 12/29/17 12/30/17 12/30/17 18:59 06:59 18:59 Intake Total 1720 / 1720 Output Total 2200 / 2200 Balance -480 / -480 Intake: IV 700 / 700 NS Inj 1,000 ML @ 50 mls/hr IV. 700 / 700 CONT .Q20H JANETTE Rx#:[id number] Oral 1020 / 1020 Output: Urine 2200 / 2200 Other: # Voids 6 Date of Last Bowel Movement 12/28/17 12/29/17 Results Procedures completed during hospitalization: None Labs on day of discharge: Labs from last 24 hours 12/30/17 12/30/17 12/29/17 05:45 05:45 05:50 WBC 10.4 RBC 4.02 L Hgb 10.4 L Hct 31.7 L MCV 78.8 L MCH 26.0 L MCHC 32.9 RDW 17.9 H Plt Count 350 MPV 7.6 Neut % (Auto) 52.7 Lymph % (Auto) 33.1 [place] % (Auto) 12.6 H Eos % (Auto) 1.3 Baso % (Auto) 0.3 Neut # (Auto) 5.5 Lymph # (Auto) 3.4 [place] # (Auto) 1.3 H Eos # (Auto) 0.1 Baso # (Auto) 0.0 WBC Differential . Differential Comment Auto diff final Sodium 132 L Potassium 4.4 D Chloride 98 Carbon Dioxide 26.3 Anion Gap 8 BUN 19 H Creatinine 0.76 Estimated GFR Greater than 89 Random Glucose 84 Calcium 7.9 L Stl C.difficile DNA Amp St C. diff Tox Epid 027 Tiss Transglutamin IgG 5.0 Tiss Transglutamin IgA 9.9 H 12/28/17 22:50 WBC RBC Hgb Hct MCV MCH MCHC RDW Plt Count MPV Neut % (Auto) Lymph % (Auto) [place] % (Auto) Eos % (Auto) Baso % (Auto) Neut # (Auto) Lymph # (Auto) [place] # (Auto) Eos # (Auto) Baso # (Auto) WBC Differential Differential Comment Sodium Potassium Chloride Carbon Dioxide Anion Gap BUN Creatinine Estimated GFR Random Glucose Calcium Stl C.difficile DNA Amp Pending St C. diff Tox Epid 027 Pending Tiss Transglutamin IgG Tiss Transglutamin IgA - Impressions ITS Impressions Chest X-Ray 12/27/17 00:00 CONCLUSION: Patchy airspace disease left upper lobe and left base. Findings are stable from 12/20/2017. Gallbladder Ultrasound 12/27/17 00:00 CONCLUSION: Cholelithiasis with gallbladder wall thickening. Cholecystitis is not excluded. Echogenic liver compatible with fatty infiltration or hepatocellular disease. Abdomen/Pelvis CT 12/27/17 18:02 CONCLUSION: 1. CT scan without oral intravenous contrast still does not show etiology of patient's right flank pain. 2. Lack of intravenous and oral contrast does make detection of subtle etiology such as pyonephritis difficult. Hepatobiliary Scan Nuclear Medicine 12/29/17 00:00 CONCLUSION: 1. The gallbladder and extrahepatic biliary tree is visualized, however small bowel activity is not seen in 60 minutes of scanning. 2. This may reflect sphincter of Mk spasm as potentially associated with narcotic medication administration with obstructive process not excluded but felt less likely Discharge Plan - Discharge Disposition Patient Disposition: 01 Discharge Home - Discharge Condition Condition: Stable - Discharge Order Discharge Orders: Discharge Order (Routine); Ordered 12/30/17 Ordered By: Gloria Berrios - Physicians Team Primary Care Provider: Chance Tarango Attending Provider: Alberto Bradshaw Other Providers: Robert Sparks MD ; Tenders.es,Insurance
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
== END 2017-12-30 11:55 | disposition home or self-care (01) ==
LOC: NEPD 16:47 → NEDA 20:23 → INTOOBSV 20:23 → NEDA 21:34 → NEPGCP 21:35
PROVIDERS: ADMIT Family Medicine; ATTEND Family Medicine

== ENCOUNTER 2018-01-19 12:12 | Observation (INO) ==
[2018-01-19] MEDS ORDERED: Morphine Inj 4 MG/ML Vial IV.PUSH ONE (12:37)
--- NOTE | 2018-01-19 12:44 | ED ---
HPI General Chief Complaint: Abdominal Pain Stated Complaint: Possible Gallbladder issue per DR Time Seen by Provider: 01/19/18 12:27 History of Present Illness HPI narrative: Patient presents to the ER complaining of abdominal pain. States that he had a gallbladder procedure that has been causing problems and he is supposed to follow-up with a GI doctor on February 11. His pain is described as being on the right side right upper and lower quadrant, similar pain when he had pancreatitis, 8 out of 10, intermittent times 2 weeks, aggravated by eating, alleviated by laying flat and not moving. He is on pain management and has taken MS Contin 15 mg at 4:00 this morning and he is also on 10 mg of Percocet as needed but he has not taken the Percocet today. He reports chills but no fever, nausea but no vomiting, he denies chest pain or diarrhea. Last meal was this morning. Reports compliance with medications. Related Data Home Medications Medication Instructions Recorded Confirmed diltiazem HCl [Cardizem CD] 240 mg PO DAILY 09/14/17 01/19/18 metoprolol tartrate [Lopressor] 50 mg PO BID 09/14/17 01/19/18 morphine 15 mg PO Q12H 09/14/17 01/19/18 tiotropium bromide [Spiriva with 1 cap INHALATION DAILY 09/14/17 01/19/18 HandiHaler] Lacto.acidophilus-Bif.animalis 1 cap PO DAILY 11/27/17 01/19/18 [Probiotic] apixaban [Eliquis] 5 mg PO BID 11/27/17 01/19/18 multivitamin 1 tab PO DAILY 11/27/17 01/19/18 ranitidine HCl 75 mg PO DAILY 01/03/18 01/19/18 Previous Rx's Medication Instructions Recorded ferrous sulfate [Iron (ferrous 325 mg PO BID #90 tab 12/30/17 sulfate)] pantoprazole [Protonix] 40 mg PO BID #90 tab 12/30/17 oxycodone-acetaminophen [Percocet] 1 tab PO Q6H PRN #5 tab 01/03/18 Allergies Allergy/AdvReac Type Severity Reaction Status Date / Time codeine Allergy Severe TURN RED, Verified 01/19/18 12:18 SOB, HIVES ketoconazole Allergy Intermediate Rash Verified 01/19/18 12:18 Iodinated Contrast- Oral and Allergy Hives Verified 01/19/18 12:18 IV Dye [Contrast] albuterol AdvReac Arrhythmias Verified 01/19/18 12:18 Review of Systems ROS: all other systems reviewed are negative PMFSH Social History Social History Substance History: No History of Abuse Second Hand Smoke Exposure: Yes Smoking Status: Current every day smoker Tobacco Type: Cigarettes How Often Do You Have a Drink Containing Alcohol: Never Recent Travel in [facility] within the Last 8 Weeks: No Recent Out of Country Travel within the Last 8 Weeks: No Immunization History Tetanus Immunization: <5 Years Exam Narrative Exam Narrative: GENERAL: Anxious SKIN: Focused skin assessment warm/dry. HEAD: Atraumatic. Normocephalic. EYES: Pupils equal and round. No scleral icterus. No injection or drainage. ENT: No nasal bleeding or discharge. Mucous membranes pink and moist. NECK: Trachea midline. No JVD. CARDIOVASCULAR: Irregularly irregular. No murmur appreciated. RESPIRATORY: No accessory muscle use. Clear to auscultation. Breath sounds equal bilaterally. GASTROINTESTINAL: Abdomen soft, right upper quadrant tender, nondistended. Hepatic and splenic margins not palpable. MUSCULOSKELETAL: No obvious deformities. No clubbing. No cyanosis. No edema. NEUROLOGICAL: Awake and alert. No obvious cranial nerve deficits. Motor grossly within normal limits. Normal speech. PSYCHIATRIC: Appropriate mood and affect; insight and judgment normal. Course Initial Documented Vital Signs Temperature 97.6 F 01/19/18 12:15 Pulse Rate 119 H 01/19/18 12:15 Respiratory Rate 18 01/19/18 12:15 Blood Pressure 127/79 01/19/18 12:15 Pulse Oximetry 100 01/19/18 12:15 Last Documented Vital Signs Temperature 97.6 F 01/19/18 12:15 Pulse Rate 83 01/19/18 14:18 Respiratory Rate 16 01/19/18 14:18 Blood Pressure 135/80 01/19/18 14:18 Pulse Oximetry 100 01/19/18 14:18 Medical Decision Making MDM Narrative Medical decision making narrative: Patient presents to the emergency department complaining of right-sided abdominal pain. Patient placed on monitoring analyst, continuous pulse ox, and IV access obtained. EKG, chest x-ray, labs, ultrasound and CT ordered. patient also given 500 cc IV normal saline and 2 mg IV morphine. 1547: Patient given another 2mg IV morphine and 1 mg IV dilausis. Spoke to patient's GI doctor, Dr Sparks, request admission and Gen surg to see. HR in 80s -90s. 1554: Patient admitted to hospitalist. Medical Screen Exam Complete: Yes Emergency Medical Condition: Yes Differential Diagnosis Differential Diagnosis: Pancreatitis, cystitis, cholelithiasis, Lab Data Result diagrams: 01/19/18 13:36 01/19/18 13:36 Lab Results 01/19/18 01/19/18 01/19/18 Range/Units 13:36 13:36 13:36 CBC w Diff Auto diff final WBC 6.3 (4.0-11.0) th/mm3 RBC 4.42 L (4.50-5.90) mil/mm3 Hgb 11.6 L (13.0-17.0) gm/dL Hct 35.0 L (39.0-51.0) % MCV 79.4 L (80.0-100.0) fL MCH 26.2 L (27.0-34.0) pg MCHC 33.0 (32.0-36.0) % RDW 18.3 H (11.6-17.2) % Plt Count 477 H D (150-450) th/mm3 MPV 8.1 (7.0-11.0) fL Neut % (Auto) 55.0 (16.0-70.0) % Lymph % (Auto) 33.2 (9.0-44.0) % Carlisle % (Auto) 9.8 H (0.0-8.0) % Eos % (Auto) 1.0 (0.0-4.0) % Baso % (Auto) 1.0 (0.0-2.0) % Neut # (Auto) 3.4 (1.8-7.7) th/mm3 Lymph # (Auto) 2.1 (1.0-4.8) th/mm3 Carlisle # (Auto) 0.6 (0.0-0.9) th/mm3 Eos # (Auto) 0.1 (0.0-0.4) th/mm3 Baso # (Auto) 0.1 (0.0-0.2) th/mm3 WBC Differential . Differential Comment . PT 13.2 H (9.8-11.6) sec INR 1.3 Ratio APTT 33.2 H (23.4-31.7) sec Sodium 136 (136-145) meq/L Potassium 4.4 (3.5-5.1) meq/L Chloride 104 (98-107) meq/L Carbon Dioxide 24.8 (21.0-32.0) meq/L Anion Gap 7 (5-15) meq/L BUN 8 (7-18) mg/dL Creatinine 0.77 (0.60-1.30) mg/dL Estimated GFR Greater than 89 (>89) mL/min Random Glucose 88 (74-106) mg/dL Lactic Acid (0.4-2.0) mmol/L Calcium 7.8 L (8.5-10.1) mg/dL Magnesium 1.9 (1.5-2.5) mg/dL Total Bilirubin 0.3 (0.2-1.0) mg/dL AST 34 (15-37) U/L ALT 28 (12-78) U/L Alkaline Phosphatase 80 (45-117) U/L Troponin I Less than 0.02 L (0.02-0.05) ng/mL B-Natriuretic Peptide (0-100) pg/mL Total Protein 6.7 (6.4-8.2) g/dL Albumin 3.1 L (3.4-5.0) g/dL Lipase 126 (73-393) U/L 01/19/18 01/19/18 Range/Units 13:36 13:36 CBC w Diff WBC (4.0-11.0) th/mm3 RBC (4.50-5.90) mil/mm3 Hgb (13.0-17.0) gm/dL Hct (39.0-51.0) % MCV (80.0-100.0) fL MCH (27.0-34.0) pg MCHC (32.0-36.0) % RDW (11.6-17.2) % Plt Count (150-450) th/mm3 MPV (7.0-11.0) fL Neut % (Auto) (16.0-70.0) % Lymph % (Auto) (9.0-44.0) % Carlisle % (Auto) (0.0-8.0) % Eos % (Auto) (0.0-4.0) % Baso % (Auto) (0.0-2.0) % Neut # (Auto) (1.8-7.7) th/mm3 Lymph # (Auto) (1.0-4.8) th/mm3 Carlisle # (Auto) (0.0-0.9) th/mm3 Eos # (Auto) (0.0-0.4) th/mm3 Baso # (Auto) (0.0-0.2) th/mm3 WBC Differential Differential Comment PT (9.8-11.6) sec INR Ratio APTT (23.4-31.7) sec Sodium (136-145) meq/L Potassium (3.5-5.1) meq/L Chloride (98-107) meq/L Carbon Dioxide (21.0-32.0) meq/L Anion Gap (5-15) meq/L BUN (7-18) mg/dL Creatinine (0.60-1.30) mg/dL Estimated GFR (>89) mL/min Random Glucose (74-106) mg/dL Lactic Acid 1.9 (0.4-2.0) mmol/L Calcium (8.5-10.1) mg/dL Magnesium (1.5-2.5) mg/dL Total Bilirubin (0.2-1.0) mg/dL AST (15-37) U/L ALT (12-78) U/L Alkaline Phosphatase (45-117) U/L Troponin I (0.02-0.05) ng/mL B-Natriuretic Peptide 278 H (0-100) pg/mL Total Protein (6.4-8.2) g/dL Albumin (3.4-5.0) g/dL Lipase (73-393) U/L Imaging Data Radiologist's impression: Chest X-Ray 01/19/18 12:37 CONCLUSION: 1. Stable patchy airspace opacities in the left upper lobe which could represent residual infiltrate or possible scar. 2. Chronic scarring and/or honeycombing in the left lung base. Gallbladder Ultrasound 01/19/18 12:37 CONCLUSION: 1. There is a small oval cyst in the right kidney, otherwise unremarkable. Abdomen/Pelvis CT 01/19/18 12:39 CONCLUSION: 1. The gallbladder appears partially contracted but otherwise unremarkable. 2. Nonspecific, nonobstructive bowel gas pattern which may represent an ileus or gastroenteritis. No oral or intravenous contrast was given limiting the sensitivity with poor separation the bowel loops and mesentery. ECG Data Attestation: I personally reviewed and interpreted this ECG as follows: (atrial fib with RVR, normal axis, QTc 380, rate 116) Discharge Plan Discharge Disposition Patient Disposition: 30 Still Patient Discharge Condition Condition: Stable Discharge Details Diagnosis: Abdominal pain Physicians Team ED Provider: Renetta Owusu Primary Care Provider: Chance Tarango Rxs /Orders / Referrals /Forms Prescriptions: No Action diltiazem HCl [Cardizem CD] 240 mg Capsule,Extended Release 24hr 240 mg PO DAILY RF: 0 tiotropium bromide [Spiriva with HandiHaler] 18 mcg Capsule, W/Inhalation Device 1 cap INHALATION DAILY RF: 0 metoprolol tartrate [Lopressor] 50 mg Tablet 50 mg PO BID RF: 0 morphine 15 mg Tablet Extended Release 15 mg PO Q12H RF: 0 ferrous sulfate [Iron (ferrous sulfate)] 325 mg (65 mg iron) Tablet 325 mg PO BID Qty: 90 RF: 0 pantoprazole [Protonix] 20 mg Tablet,Delayed Release (Dr/Ec) 40 mg PO BID Qty: 90 RF: 0 ranitidine HCl 75 mg Tablet 75 mg PO DAILY RF: 0 oxycodone-acetaminophen [Percocet] 10-325 mg tablet 1 tab PO Q6H PRN (Reason: pain) Qty: 5 RF: 0 apixaban [Eliquis] 5 mg Tablet 5 mg PO BID RF: 0 Lacto.acidophilus-Bif.animalis [Probiotic] 5 billion cell Capsule, Sprinkle 1 cap PO DAILY RF: 0 multivitamin 1 tab PO DAILY RF: 0 Status ED Status: With Doctor
--- NOTE | 2018-01-19 12:57 | XR ---
EXAM DATE: 01/19/2018 12:53 PM EST AGE/SEX: 67 years / Male INDICATIONS: Right upper quadrant pain, nausea. CLINICAL DATA: This is the patient's initial encounter. Patient reports that signs and symptoms have been present for 2 weeks and indicates a pain score of 8/10. MEDICAL/SURGICAL HISTORY: Chronic obstructive pulmonary disease. Congestive heart failure. Atr ial fibrillation. None. COMPARISON: [facility] [place], CHEST 2V AP&LAT, 12/27/2017. . FINDINGS: A single AP view of the chest demonstrates the lungs to be symmetrically aerated without evidence of mass or effusion. Stable patchy airspace opacity in the left upper lobe. The right lung is clear. Chr onic scarring and/or honeycombing at the left lung base. The cardiomediastinal contours are unremarka ble. Osseous structures are intact. CONCLUSION: 1. Stable patchy airspace opacities in the left upper lobe which could represent residual infiltrate or possible scar. 2. Chronic scarring and/or honeycombing in the left lung base. Electronically signed by: James Pugh MD 01/19/2018 12:56 PM EST
[2018-01-19] MEDS ORDERED: Sodium Chlor 0.9% Inj 500 ML IV.SIG SCH (13:00)
--- NOTE | 2018-01-19 13:30 | CT ---
EXAM DATE: 01/19/2018 1:18 PM EST AGE/SEX: 67 years / Male INDICATIONS: Right upper quadrant pain and nausea. CLINICAL DATA: This is the patient's initial encounter. Patient reports that signs and symptoms have been present for 2 weeks and indicates a pain score of 8/10. MEDICAL/SURGICAL HISTORY: Congestive heart failure. Chronic obstructive pulmonary disease. De ep venous thrombosis. TIA. Pulmonary embolism. Atrial fibrillation. . Ankle surgery. RADIATION DOSE: 6.55 CTDI (mGy) COMPARISON: [facility] [place] ABDOMEN & PELVIS W/O CONTRAST, 12/27/2017. . TECHNIQUE: Multiple contiguous axial images were obtained through the abdomen. Images were obtained using multiple row detector helical technique. Using automated exposure control and adjustment of the mA and/or kV according to patient size, radiation dose was kept as low as reasonably achievable to o btain optimal diagnostic quality images. DICOM format image data is available electronically for rev iew and comparison. FINDINGS: Lower Lungs: Chronic scarring is noted in both lung bases with honeycombing. Liver: The liver has a homogeneous density without space-occupying lesion. There is no dilation of th e biliary tree. The gallbladder appears partially contracted but otherwise unremarkable. Spleen: Homogeneous density without enlargement. Pancreas: Unremarkable without mass or calcification. Kidneys: Normal in size and shape. No evidence of mass or hydronephrosis. Adrenal Glands: Unremarkable. Aorta: The aorta and proximal iliac vessels are grossly unremarkable without aneurysmal dilation. Bowel/Mesentery: No oral or intravenous contrast was given limiting the sensitivity of the examinati on. There is poor separation of the bowel loops and mesentery. There is no free air or drainable flui d. There are several loops of nondilated air-containing small bowel. There is mild gaseous distention of portions of the colon. Abdominal Wall: Intact. Retroperitoneum: No evidence of adenopathy in the retrocrural, para-aortic, or deep pelvic regions. Bladder: Contours are smooth. Reproductive Organs: No abnormal masses or calcifications seen. Inguinal: The inguinal region is unremarkable without evidence of adenopathy. Bony Structures: Unremarkable. CONCLUSION: 1. The gallbladder appears partially contracted but otherwise unremarkable. 2. Nonspecific, nonobstructive bowel gas pattern which may represent an ileus or gastroenteritis. No oral or intravenous contrast was given limiting the sensitivity with poor separation the bowel loops and mesentery. Electronically signed by: James Pugh MD 01/19/2018 1:28 PM EST
[2018-01-19 14:06] LABS: Chloride 104 meq/L (98-107); Potassium 4.4 meq/L (3.5-5.1); Sodium 136 meq/L (136-145)
[2018-01-19 14:07] LABS: Baso # (Auto) 0.1 th/mm3 (0.0-0.2); Eos # (Auto) 0.1 th/mm3 (0.0-0.4); Hemoglobin 11.6 gm/dL (13.0-17.0); Lymph # (Auto) 2.1 th/mm3 (1.0-4.8); Lymph % (Auto) 33.2 % (9.0-44.0); Mean Corpuscular Hemoglobin 26.2 pg (27.0-34.0); Mean Corpuscular Volume 79.4 fL (80.0-100.0); Mean Platelet Volume 8.1 fL (7.0-11.0); Mono # (Auto) 0.6 th/mm3 (0.0-0.9); Mono % (Auto) 9.8 % (0.0-8.0); Neut # (Auto) 3.4 th/mm3 (1.8-7.7); Platelet Count 477 th/mm3 (150-450); Red Blood Count 4.42 mil/mm3 (4.50-5.90); Red Cell Distribution Width 18.3 % (11.6-17.2); White Blood Count 6.3 th/mm3 (4.0-11.0)
[2018-01-19 14:11] LABS: Calcium 7.8 mg/dL (8.5-10.1)
[2018-01-19 14:12] LABS: Albumin 3.1 g/dL (3.4-5.0); Anion Gap 7 meq/L (5-15); Blood Urea Nitrogen 8 mg/dL (7-18); Carbon Dioxide 24.8 meq/L (21.0-32.0); Glucose,Random 88 mg/dL (74-106); Lipase 126 U/L (73-393); Magnesium 1.9 mg/dL (1.5-2.5)
[2018-01-19 14:14] LABS: Alanine Aminotransferase 28 U/L (12-78)
[2018-01-19 14:15] LABS: Aspartate Aminotransferase 34 U/L (15-37); Glomerular Filtration Rate Greater Than 89 mL/min (>89)
[2018-01-19 14:16] LABS: Total Protein 6.7 g/dL (6.4-8.2)
[2018-01-19 14:17] LABS: Alkaline Phosphatase 80 U/L (45-117)
[2018-01-19] MEDS ORDERED: Morphine Sulfate Inj 2 MG/ML Vial IV.PUSH ONE (14:18)
[2018-01-19 14:45] LABS: Activated Partial Thrombo Time 33.2 sec (23.4-31.7); INR 1.3 Ratio; Prothrombin Time 13.2 sec (9.8-11.6)
--- NOTE | 2018-01-19 14:57 | US ---
EXAM DATE: 01/19/2018 2:18 PM EST AGE/SEX: 67 years / Male INDICATIONS: Right upper quadrant abdominal pain. CLINICAL DATA: This is the patient's initial encounter. Patient reports that signs and symptoms have been present for 2 weeks and indicates a pain score of 8/10. MEDICAL/SURGICAL HISTORY: Chronic obstructive pulmonary disease. Deep venous thrombosis. Guerra sient ischemic attack. Afib. C.difficle. CHF. Pneumonia. Pulmonary embolus. . Right ankle surgery. COMPARISON: [facility], CT ABDOMEN & PELVIS W/O CONTRAST, 01/19/2018. . MEASUREMENTS: Liver:__ 16.8 cm. Common Bile Duct:__ 4mm. FINDINGS: Liver: Normal echotexture without focal lesion or ductal dilatation. Portal Vein: Hepatopedal flow seen in portal vein. Common Duct: No intraluminal mass or stone visualized. Gallbladder: Demonstrates no wall thickening or pericholecystic fluid. No stones visualized. Pancreas: Not well visualized. Right Kidney: Approximate 1.2 cm simple cyst is present in the right kidney. There is no hydronephros is. CONCLUSION: 1. There is a small oval cyst in the right kidney, otherwise unremarkable. Electronically signed by: Kyler Renee MD 01/19/2018 2:56 PM EST
[2018-01-19] MEDS ORDERED: HYDROmorphone PF Inj 2 MG/ML Vial IV.PUSH ONE (15:47)
[2018-01-19] MEDS ORDERED: Bisacodyl 10 MG Supp RECTAL PRN (15:56)
[2018-01-19] MEDS ORDERED: Acetaminophen 325 MG Tablet PO PRN (15:56)
[2018-01-19] MEDS: Sod Chloride 0.9% Inj 1,000 ML IV.CONT SCH (16:40)
[2018-01-19 16:56] VITALS: RESP 18
--- NOTE | 2018-01-19 17:01 | P.HP ---
History of Present Illness Primary Care Physician: Chance Tarango MD Chief Complaint: abdominal pain History of Present Illness: 67-year-old male with history of A. fib on Eliquis, COPD, CHF, prior PE/DVT, HTN , chronic pain on pain management, presents with ongoing right-sided abdominal pain, worse over the past week. Patient was recently admitted for similar abdominal pain, underwent abdomen/pelvis CT, GB ultrasound, and HIDA scan was mostly unremarkable. He states when he was discharged, he was feeling slightly better, however the pain never went away. He states over the past week he has had worsening abdominal pain located at the epigastric, right upper quadrant and right lower quadrants, described as 10/10 sharp stabbing pains. The pain is worse after meals and when he tries to lie flat. The pain improves with ambulation. He has been taking his chronic pain medication without any relief. He denies any fevers but does report chills. He reports nausea but no vomiting. He states he has normal soft bowel movements almost every morning. He states he was told by his primary substance abuse counselor Dr. Sparks that he likely has gallbladder disease. The patient otherwise denies any current chest pain, shortness of breath, or urinary complaints. He states he has a chronic problem with dysphasia and occasionally chokes on his food. He states he has had aspiration pneumonia in the past because of this. Denies any current cough. He has no other medical complaints at this time. He last took his Eliquis this morning 01/19 at 6 AM. Past medical history: COPD Afib on Eliquis CHF Hx of PE and DVT HTN Chronic pain- right ankle History of C. 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 difficile diarrhea (Resolved) Pulmonary embolus (Chronic) DVT (deep venous thrombosis) (Chronic) TIA (transient ischemic attack) (Resolved) Pneumonia (Resolved) COPD (chronic obstructive pulmonary disease) (Chronic) - Surgical History Surgical History: Surgical History (Last Updated 01/19/18 @ 16:46 by Veronica Cornejo) History of ankle surgery (Chronic) History of colonoscopy History of esophagogastroduodenoscopy History of eye surgery - Family History Family History: Family History (Last Updated 01/19/18 @ 16:46 by Veronica Cornejo) Mother Buerger disease Grandparent Buerger disease - Social History I have reviewed the patient's Social History: Yes - Tobacco History Second Hand Smoke Exposure: Yes Tobacco Use In Past 30 Days: No Smoking Status: Former smoker (1 PPD from age 36 to 66) Tobacco Type: Cigarettes - Alcohol History How Often Do You Have a Drink Containing Alcohol: Never - Substance Use History Substance History: No History of Abuse - Travel History Recent Travel in the [place] Within the Last 8 Weeks: No Recent Travel Out of the Country Within the Last 8 Weeks: No - Immunization History Tetanus Immunization: <5 Years Medications and Allergies Active Medications: Active Medications Acetaminophen (Tylenol) 650 mg PO Q4H PRN PRN Reason: Headache, fever, pain 1-4 Al Hydroxide/Mg Hydroxide (Milk Of Magnesia Liq) 30 ml PO Q12H PRN PRN Reason: Mild Constipation Bisacodyl (Dulcolax Supp) 10 mg RECTAL DAILY PRN PRN Reason: SEVERE CONSITIPATION Sodium Chloride (Ns Inj) 1,000 mls @ 100 mls/hr IV.CONT .Q10H JANETTE Stop: 01/20/18 15:59 Ceftriaxone Sodium 1,000 mg/ (Sodium Chloride) 100 mls @ 200 mls/hr IV.SIG Q24H J[facility]TE Lactulose (Lactulose Liq) 30 ml PO DAILY PRN PRN Reason: SEVERE CONSITIPATION Morphine Sulfate (Morphine Inj) 4 mg IV.PUSH Q4H PRN PRN Reason: Pain 5-10 Ondansetron HCl (Zofran Inj) 4 mg IV.PUSH Q6H PRN PRN Reason: NAUSEA OR VOMITING Sennosides (Senokot) 17.2 mg PO Q12H PRN PRN Reason: Moderate Constipation Sodium Chloride (Ns Flush) 2 ml IV.FLUSH PRN PRN PRN Reason: FLUSH AFTER USING IV ACCESS Allergies Allergy/AdvReac Type Severity Reaction Status Date / Time codeine Allergy Severe TURN RED, Verified 01/19/18 12:18 SOB, HIVES ketoconazole Allergy Intermediate Rash Verified 01/19/18 12:18 Iodinated Contrast- Oral and Allergy Hives Verified 01/19/18 12:18 IV Dye [Contrast] albuterol AdvReac Arrhythmias Verified 01/19/18 12:18 Home Medications Medication Instructions Recorded Confirmed Type diltiazem HCl [Cardizem CD] 240 mg PO DAILY 09/14/17 01/19/18 History metoprolol tartrate [Lopressor] 50 mg PO BID 09/14/17 01/19/18 History morphine 15 mg PO Q12H 09/14/17 01/19/18 History tiotropium bromide [Spiriva with 1 cap INHALATION DAILY 09/14/17 01/19/18 History HandiHaler] Lacto.acidophilus-Bif.animalis 1 cap PO DAILY 11/27/17 01/19/18 History [Probiotic] apixaban [Eliquis] 5 mg PO BID 11/27/17 01/19/18 History multivitamin 1 tab PO DAILY 11/27/17 01/19/18 History ranitidine HCl 75 mg PO DAILY 01/03/18 01/19/18 History Exam Vital signs: Vital Signs 01/19/18 12:15 01/19/18 14:18 01/19/18 16:34 Temperature 97.6 F Pulse Rate 119 H 83 92 H Respiratory Rate 18 16 14 Blood Pressure 127/79 135/80 115/89 Pulse Oximetry 100 100 Intake & Output 01/18/18 01/19/18 01/19/18 18:59 06:59 18:59 Intake Total 500 / 500 Balance 500 / 500 Weight 61 kg Intake: IV 500 / 500 NS Inj 500 ML @ 1000 mls/hr IV. 500 / 500 SIG BOLUS [facility] Rx#:[id number] Narrative: GENERAL: Well-nourished, well-developed pleasant male patient in NAD. SKIN: Warm and dry. No rash. HEENT: Normocephalic. Atraumatic. Pupils equal and round. Mucous membranes pink and moist. NECK: Supple. Trachea midline. CARDIOVASCULAR: Irregular rate and rhythm. No murmur appreciated. RESPIRATORY: No accessory muscle use. Clear to auscultation. Breath sounds equal bilaterally. GASTROINTESTINAL: Abdomen soft, nondistended, TTP at epigastric/RUQ/RLQ regions. Normoactive bowel sounds x4. MUSCULOSKELETAL: No obvious deformities. Extremities without clubbing, cyanosis , or edema. NEUROLOGICAL: Awake and alert. No obvious cranial nerve deficits. Motor grossly within normal limits. Moving all extremities spontaneously. Normal speech. PSYCHIATRIC: Appropriate mood and affect; insight and judgment normal. Results - Labs CBC & Chem 7: 01/19/18 13:36 01/19/18 13:36 Labs: Laboratory Results - last 24 hr 01/19/18 01/19/18 01/19/18 13:36 13:36 13:36 CBC w Diff Auto diff final WBC 6.3 RBC 4.42 L Hgb 11.6 L Hct 35.0 L MCV 79.4 L MCH 26.2 L MCHC 33.0 RDW 18.3 H Plt Count 477 H D MPV 8.1 Neut % (Auto) 55.0 Lymph % (Auto) 33.2 [place] % (Auto) 9.8 H Eos % (Auto) 1.0 Baso % (Auto) 1.0 Neut # (Auto) 3.4 Lymph # (Auto) 2.1 [place] # (Auto) 0.6 Eos # (Auto) 0.1 Baso # (Auto) 0.1 WBC Differential . Differential Comment . PT 13.2 H INR 1.3 APTT 33.2 H Sodium 136 Potassium 4.4 Chloride 104 Carbon Dioxide 24.8 Anion Gap 7 BUN 8 Creatinine 0.77 Estimated GFR Greater than 89 Random Glucose 88 Lactic Acid Calcium 7.8 L Magnesium 1.9 Total Bilirubin 0.3 AST 34 ALT 28 Alkaline Phosphatase 80 Troponin I Less than 0.02 L B-Natriuretic Peptide Total Protein 6.7 Albumin 3.1 L Lipase 126 01/19/18 01/19/18 13:36 13:36 CBC w Diff WBC RBC Hgb Hct MCV MCH MCHC RDW Plt Count MPV Neut % (Auto) Lymph % (Auto) [place] % (Auto) Eos % (Auto) Baso % (Auto) Neut # (Auto) Lymph # (Auto) [place] # (Auto) Eos # (Auto) Baso # (Auto) WBC Differential Differential Comment PT INR APTT Sodium Potassium Chloride Carbon Dioxide Anion Gap BUN Creatinine Estimated GFR Random Glucose Lactic Acid 1.9 Calcium Magnesium Total Bilirubin AST ALT Alkaline Phosphatase Troponin I B-Natriuretic Peptide 278 H Total Protein Albumin Lipase - Imaging Impressions Chest X-Ray 01/19/18 12:37 CONCLUSION: 1. Stable patchy airspace opacities in the left upper lobe which could represent residual infiltrate or possible scar. 2. Chronic scarring and/or honeycombing in the left lung base. Gallbladder Ultrasound 01/19/18 12:37 CONCLUSION: 1. There is a small oval cyst in the right kidney, otherwise unremarkable. Abdomen/Pelvis CT 01/19/18 12:39 CONCLUSION: 1. The gallbladder appears partially contracted but otherwise unremarkable. 2. Nonspecific, nonobstructive bowel gas pattern which may represent an ileus or gastroenteritis. No oral or intravenous contrast was given limiting the sensitivity with poor separation the bowel loops and mesentery. Caprini VTE Risk Assessment Caprini VTE Risk Assessment: Moderate/High Risk (score >= 2) Caprini Risk Assessment Model: Point Value = 1 Point Value = 2 Point Value = 3 Point Value = 5 Age 41-60 Minor surgery BMI > 25 kg/m2 Swollen legs Varicose veins or History of unexplained or recurrent spontaneous Oral contraceptives or hormone replacement Sepsis (< 1 month) Serious lung disease, including pneumonia (< 1 month) Abnormal pulmonary function Acute myocardial infarction Congestive heart failure (< 1 month) History of inflammatory bowel disease Medical patient at bed rest Age 61-74 Arthroscopic surgery Major open surgery (> 45 min) Laparoscopic surgery (> 45 min) Malignancy Confined to bed (> 72 hours) Immobilizing plaster cast Central venous access Age >= 75 History of VTE Family history of VTE Factor V Leiden Prothrombin [id number] Lupus anticoagulant Anticardiolipin antibodies Elevated serum homocysteine Heparin-induced thrombocytopenia Other congenital or acquired thrombophilia Stroke (< 1 month) Elective arthroplasty Hip, pelvis, or leg fracture Acute spinal cord injury (< 1 month) Prophylaxis Regimen: Total Risk Factor Score Risk Level Prophylaxis Regimen 0-1 Low Early ambulation 2 Moderate Order ONE of the following: *Sequential Compression Device (SCD) *Heparin 5000 units SQ BID 3-4 Higher Order ONE of the following medications: *Heparin 5000 units SQ TID *Enoxaparin/Lovenox 40 mg SQ daily (WT < 150 kg, CrCl > 30 mL/min) *Enoxaparin/Lovenox 30 mg SQ daily (WT < 150 kg, CrCl > 10-29 mL/min) *Enoxaparin/Lovenox 30 mg SQ BID (WT < 150 kg, CrCl > 30 mL/min) AND/OR *Sequential Compression Device (SCD) 5 or more Highest Order ONE of the following medications: *Heparin 5000 units SQ TID (Preferred with Epidurals) *Enoxaparin/Lovenox 40 mg SQ daily (WT < 150 kg, CrCl > 30 mL/min) *Enoxaparin/Lovenox 30 mg SQ daily (WT < 150 kg, CrCl > 10-29 mL/min) *Enoxaparin/Lovenox 30 mg SQ BID (WT < 150 kg, CrCl > 30 mL/min) AND *Sequential Compression Device (SCD) Assessment and Plan - Plan 67-year-old male with history of A. fib on Eliquis, COPD, CHF, prior PE/DVT, HTN , chronic pain on pain management, presents with ongoing right-sided abdominal pain, worse over the past week. Epigastric/RUQ/RLQ Abdominal Pain: recently admit for the same, workup with abdomen/pelvis CT, GB ultrasound, and HIDA scan was mostly unremarkable. -Lipase and LFTs wnl, no leukocytosis, afebrile -CT abd/pelvis 01/19 reviewed, shows gallbladder appears partially contracted but otherwise unremarkable; Nonspecific, nonobstructive bowel gas pattern which may represent an ileus or gastroenteritis. -GB U/S 01/19 reviewed, shows small oval cyst in the right kidney, otherwise unremarkable. -Check HIDA scan (previous HIDA scan on last admit was only done for 60minutes due to patient interruption) -Started on IV rocephin with concern for cholecystitis -Clear liquid diet for now -Gentle IVF hydration, antiemetics prn, pain control with IV morphine prn -ER contacted GI Dr. Sparks, recommended admission and general surgery consultation -Consult General Surgery, appreciate recommendations COPD: chronic, does not appear to be in exacerbation -CXR reviewed, shows Stable patchy airspace opacities in the left upper lobe which could represent residual infiltrate or possible scar; Chronic scarring and /or honeycombing in the left lung base. -Continue patient's Spiriva -patient has documented allergy to albuterol Atrial Fibrillation: chronic -holding patient's Eliquis until evaluated by surgery -Continue patient's Cardizem CD 240mg daily and metoprolol 50mg bid -Monitor on telemetry Hypertension: chronic, stable -continue patient's cardizem and metoprolol -Monitor BP and adjust antihypertensives as needed GERD: chronic -continue patient's PPI Chronic Pain: chronic -continue patient's morphine ER 15mg po bid -continue outpatient f/up with pain management CHF: chronic, does not appear to be in fluid overload -caution with IVF hydration -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 Clay Microcytic Iron Deficient Anemia: iron panel on previous admission consistent with iron deficiency -hemoccult negative on 12/28/17 -continue patient's ferrous sulfate bid -monitor CBC DVT Prophylaxis: teds/SCDs; holding patient's Eliquis incase surgery is indicated.
[2018-01-19] MEDS: Morphine Sulfate 15 MG SR Tablet PO SCH (17:54)
[2018-01-19] MEDS: Senna/Docusate Sodium 8.6/50 MG Tablet PO SCH (20:11)
[2018-01-19] MEDS: Ferrous Sulfate 325 MG Tablet PO SCH (20:11)
[2018-01-19] MEDS: Morphine Inj 4 MG/ML Vial IV.PUSH PRN (20:11)
[2018-01-19] MEDS: Metoprolol Tartrate 50 MG Tablet PO SCH (20:11)
--- NOTE | 2018-01-19 20:57 | P.CONGS ---
[facility] Gen Surgery Consult Note Consult date: 01/19/18 Reason for consult: abdominal pain Requesting physician: Veronica Cornejo Narrative: This is a 67 year old male with a past medical history of atrial fibrillation on Eliquis, COPD, CHF, PE/DVT and chronic ankle pain. He reports he has had RIGHT upper quadrant pain for several weeks. Pain is a 5/10, currently 4/10, some improvement with pain meds. worse with movement, better with staying still. He was admitted to [facility] from 12/27-12/30 with a complete gallbladder work up. All scans were essentially negative. The patient reports the pain has continued. He denies any nausea or vomiting. He reports the pain is worse after eating and when laying flat. A gallbladder US was done in the ED on admission which was again essentially unremarkable. His laboratory work is unremarkable. The patient reports he has had both an EGD and colonoscopy in the two years which were normal. Of note, the patient last took his Eliquis Thursday morning. A General Surgery consultation has been requested. Review of Systems All other systems reviewed negative except as stated in [facility] - History History Provided By: Patient - Medical History Medical History: Medical History (Last Reviewed 01/22/18 @ 13:14 by SUZIE Olivas) Afib (Chronic) CHF (congestive heart failure) (Chronic) C. difficile diarrhea (Resolved) Pulmonary embolus (Chronic) DVT (deep venous thrombosis) (Chronic) TIA (transient ischemic attack) (Resolved) Pneumonia (Resolved) COPD (chronic obstructive pulmonary disease) (Chronic) - Surgical History Surgical History: Surgical History (Last Reviewed 01/22/18 @ 13:14 by SUZIE Olivas) History of ankle surgery (Chronic) History of colonoscopy History of esophagogastroduodenoscopy History of eye surgery - Family History Family History: Family History (Last Reviewed 02/02/18 @ 13:31 by Genaro Cabrera MD) Mother Buerger disease Grandparent Buerger disease - Tobacco History Second Hand Smoke Exposure: Yes Tobacco Use In Past 30 Days: Yes Smoking Status: Current every day smoker Tobacco Type: Cigars - Alcohol History How Often Do You Have a Drink Containing Alcohol: Never - Substance Use History Substance History: No History of Abuse - Travel History Recent Travel in the [place] Within the Last 8 Weeks: No Recent Travel Out of the Country Within the Last 8 Weeks: No - Immunization History Tetanus Immunization: <5 Years Medications and Allergies Allergies Allergy/AdvReac Type Severity Reaction Status Date / Time codeine Allergy Severe TURN RED, Verified 01/29/18 21:41 SOB, HIVES ketoconazole Allergy Intermediate Rash Verified 01/29/18 21:41 Iodinated Contrast- Oral and Allergy Hives Verified 01/29/18 21:41 IV Dye [Contrast] albuterol AdvReac Arrhythmias Verified 01/29/18 21:41 Home Medications Medication Instructions Recorded Confirmed Type diltiazem HCl [Cardizem CD] 240 mg PO DAILY 09/14/17 01/29/18 History metoprolol tartrate [Lopressor] 50 mg PO BID 09/14/17 01/29/18 History morphine 15 mg PO Q12H 09/14/17 01/29/18 History tiotropium bromide [Spiriva with 1 cap INHALATION DAILY 09/14/17 01/29/18 History HandiHaler] Lacto.acidophilus-Bif.animalis 1 cap PO DAILY 11/27/17 01/29/18 History [Probiotic] apixaban [Eliquis] 5 mg PO BID 11/27/17 01/29/18 History multivitamin 1 tab PO DAILY 11/27/17 01/29/18 History ranitidine HCl 75 mg PO DAILY 01/03/18 01/29/18 History clonazepam [Klonopin] 1 mg PO BID 01/29/18 01/29/18 History oxycodone-acetaminophen [Percocet] 1 tab PO QID PRN 01/29/18 01/29/18 History Active Medications: Active Medications Acetaminophen (Tylenol) 650 mg PO Q4H PRN PRN Reason: Headache, fever, pain 1-4 Al Hydroxide/Mg Hydroxide (Milk Of Magnesia Liq) 30 ml PO Q12H PRN PRN Reason: Mild Constipation Bisacodyl (Dulcolax Supp) 10 mg RECTAL DAILY PRN PRN Reason: SEVERE CONSITIPATION Calcium Carbonate (Tums Chew) 500 mg CHEW Q2H PRN PRN Reason: abdominal discomfort Last Admin: 01/19/18 18:20 Dose: 500 mg Diltiazem HCl (Cardizem Cd 24hr) 240 mg PO DAILY JANETTE Ferrous Sulfate (Ferosul) 325 mg PO BID JANETTE Last Admin: 01/19/18 20:11 Dose: 325 mg Sodium Chloride (Ns Inj) 1,000 mls @ 100 mls/hr IV.CONT .Q10H [facility] Stop: 01/20/18 15:59 Last Admin: 01/19/18 16:40 Dose: 100 mls/hr Ceftriaxone Sodium 1,000 mg/ (Sodium Chloride) 100 mls @ 200 mls/hr IV.SIG Q24H [facility] Last Infusion: 01/19/18 17:21 Dose: Infused Lactobacillus Acidophilus (Lactinex) 1 tab PO DAILY [facility] Lactulose (Lactulose Liq) 30 ml PO DAILY PRN PRN Reason: SEVERE CONSITIPATION Metoprolol Tartrate (Lopressor) 50 mg PO BID [facility] Last Admin: 01/19/18 20:11 Dose: 50 mg Morphine Sulfate (Morphine Inj) 4 mg IV.PUSH Q4H PRN PRN Reason: Pain 5-10 Last Admin: 01/19/18 20:11 Dose: 4 mg Morphine Sulfate (Oramorph Sr) 15 mg PO Q12H [facility] Last Admin: 01/19/18 17:54 Dose: 15 mg Ondansetron HCl (Zofran Inj) 4 mg IV.PUSH Q6H PRN PRN Reason: NAUSEA OR VOMITING Pantoprazole Sodium (Protonix) 40 mg PO BID [facility] Last Admin: 01/19/18 20:11 Dose: 40 mg Senna/Docusate Sodium (Amy-Colace) 2 tab PO BID [facility] Last Admin: 01/19/18 20:11 Dose: Not Given Sennosides (Senokot) 17.2 mg PO Q12H PRN PRN Reason: Moderate Constipation Sodium Chloride (Ns Flush) 2 ml IV.FLUSH PRN PRN PRN Reason: FLUSH AFTER USING IV ACCESS Tiotropium [place] (Spiriva 18 Mcg Inh) 18 mcg INH DAILY [facility] Exam Vital signs: Vital Signs 01/19/18 12:15 01/19/18 14:18 01/19/18 16:34 Temperature 97.6 F Pulse Rate 119 H 83 92 H Respiratory Rate 18 16 14 Blood Pressure 127/79 135/80 115/89 Pulse Oximetry 100 100 01/19/18 16:55 01/19/18 20:00 Temperature 98.8 F Pulse Rate 77 Respiratory Rate 18 18 Blood Pressure 125/85 Pulse Oximetry 99 Intake & Output 01/19/18 01/19/18 01/20/18 06:59 18:59 06:59 Intake Total 600 / 600 Balance 600 / 600 Weight 60 kg Intake: IV 600 / 600 NS Inj 500 ML @ 1000 mls/hr IV. 500 / 500 SIG BOLUS [facility] Rx#:[id number] Rocephin Inj 1,000 MG In NS Inj 100 / 100 100 ML @ 200 mls/hr IV.SIG Q24H [facility] Rx#:[id number] Other: Weight On Admission 60 kg Narrative: GENERAL: 67 year old male resting in bed in no acute distress. SKIN: Warm and dry. HEAD: Atraumatic. Normocephalic. EYES: Pupils equal and round. No scleral icterus. No injection or drainage. ENT: No nasal bleeding or discharge. Mucous membranes pink and moist. NECK: Trachea midline. CARDIOVASCULAR: Regular rate and rhythm. RESPIRATORY: No accessory muscle use. Clear to auscultation. Breath sounds equal bilaterally. GASTROINTESTINAL: Abdomen soft, nondistended; flat. RUQ tenderness with minimal palpation. No visible scars or hernias. MUSCULOSKELETAL: Extremities without clubbing, cyanosis, or edema. No obvious deformities. NEUROLOGICAL: Awake and alert. No obvious cranial nerve deficits. Motor grossly within normal limits. Five out of 5 muscle strength in the arms and legs. Normal speech. PSYCHIATRIC: Appropriate mood and affect; insight and judgment normal. Results - Labs 01/20/18 04:50 01/20/18 04:50 Laboratory Results - last 24 hr 01/19/18 01/19/18 01/19/18 13:36 13:36 13:36 CBC w Diff Auto diff final WBC 6.3 RBC 4.42 L Hgb 11.6 L Hct 35.0 L MCV 79.4 L MCH 26.2 L MCHC 33.0 RDW 18.3 H Plt Count 477 H D MPV 8.1 Neut % (Auto) 55.0 Lymph % (Auto) 33.2 [place] % (Auto) 9.8 H Eos % (Auto) 1.0 Baso % (Auto) 1.0 Neut # (Auto) 3.4 Lymph # (Auto) 2.1 [place] # (Auto) 0.6 Eos # (Auto) 0.1 Baso # (Auto) 0.1 WBC Differential . Differential Comment . PT 13.2 H INR 1.3 APTT 33.2 H Sodium 136 Potassium 4.4 Chloride 104 Carbon Dioxide 24.8 Anion Gap 7 BUN 8 Creatinine 0.77 Estimated GFR Greater than 89 Random Glucose 88 Lactic Acid Calcium 7.8 L Magnesium 1.9 Total Bilirubin 0.3 AST 34 ALT 28 Alkaline Phosphatase 80 Troponin I Less than 0.02 L B-Natriuretic Peptide Total Protein 6.7 Albumin 3.1 L Lipase 126 01/19/18 01/19/18 13:36 13:36 CBC w Diff WBC RBC Hgb Hct MCV MCH MCHC RDW Plt Count MPV Neut % (Auto) Lymph % (Auto) [place] % (Auto) Eos % (Auto) Baso % (Auto) Neut # (Auto) Lymph # (Auto) [place] # (Auto) Eos # (Auto) Baso # (Auto) WBC Differential Differential Comment PT INR APTT Sodium Potassium Chloride Carbon Dioxide Anion Gap BUN Creatinine Estimated GFR Random Glucose Lactic Acid 1.9 Calcium Magnesium Total Bilirubin AST ALT Alkaline Phosphatase Troponin I B-Natriuretic Peptide 278 H Total Protein Albumin Lipase - Imaging Imaging: ITS Impressions Chest X-Ray 01/19/18 12:37 CONCLUSION: 1. Stable patchy airspace opacities in the left upper lobe which could represent residual infiltrate or possible scar. 2. Chronic scarring and/or honeycombing in the left lung base. Gallbladder Ultrasound 01/19/18 12:37 CONCLUSION: 1. There is a small oval cyst in the right kidney, otherwise unremarkable. Abdomen/Pelvis CT 01/19/18 12:39 CONCLUSION: 1. The gallbladder appears partially contracted but otherwise unremarkable. 2. Nonspecific, nonobstructive bowel gas pattern which may represent an ileus or gastroenteritis. No oral or intravenous contrast was given limiting the sensitivity with poor separation the bowel loops and mesentery. US - abdomen: report reviewed Assessment and Plan - Plan 67 year old male with ongoing RUQ pain -Recommend repeating HIDA scan -Continue to hold Eliquis -Repeat labs in AM -Will review HIDA scan once complete and make further recommendations -Thank you for this consult; We will continue to follow Discussed Condition With: Dr. Rick Alfaro RN Mr. Sun - Attending Attestation Patient with ruq abdominal pain Will recheck HIDA, will consider cholecystectomy pending results addressed with patient The exam, history, and the medical decision-making described in the above note were completed with the assistance of the mid-level provider. I reviewed and agree with the findings presented. I attest that I had a [id number] encounter with the patient on the same day, and personally performed and documented my assessment and findings in the medical record.
[2018-01-20] MEDS: Morphine Inj 4 MG/ML Vial IV.PUSH PRN ×3 (00:02→09:38)
[2018-01-20] MEDS: Sod Chloride 0.9% Inj 1,000 ML IV.CONT SCH (03:56)
[2018-01-20] MEDS: Morphine Sulfate 15 MG SR Tablet PO SCH (05:11)
[2018-01-20 06:42] LABS: Baso # (Auto) 0.2 th/mm3 (0.0-0.2); Baso % (Auto) 3.6 % (0.0-2.0); Eos # (Auto) 0.2 th/mm3 (0.0-0.4); Eos % (Auto) 3.2 % (0.0-4.0); Hematocrit 31.2 % (39.0-51.0); Hemoglobin 9.8 gm/dL (13.0-17.0); Lymph # (Auto) 2.6 th/mm3 (1.0-4.8); Lymph % (Auto) 42.2 % (9.0-44.0); Mean Corpuscular HGB Conc 31.5 % (32.0-36.0); Mean Corpuscular Hemoglobin 25.4 pg (27.0-34.0); Mean Corpuscular Volume 80.8 fL (80.0-100.0); Mean Platelet Volume 8.1 fL (7.0-11.0); Mono # (Auto) 0.7 th/mm3 (0.0-0.9); Mono % (Auto) 11.7 % (0.0-8.0); Neut # (Auto) 2.3 th/mm3 (1.8-7.7); Neut % (Auto) 39.3 % (16.0-70.0); Platelet Count 447 th/mm3 (150-450); Red Blood Count 3.86 mil/mm3 (4.50-5.90); Red Cell Distribution Width 17.6 % (11.6-17.2)
[2018-01-20 06:52] LABS: Chloride 104 meq/L (98-107); Potassium 4.3 meq/L (3.5-5.1); Sodium 137 meq/L (136-145)
[2018-01-20 06:55] LABS: Calcium 7.5 mg/dL (8.5-10.1)
[2018-01-20 06:56] LABS: Albumin 2.8 g/dL (3.4-5.0); Anion Gap 8 meq/L (5-15); Blood Urea Nitrogen 7 mg/dL (7-18); Glucose,Random 81 mg/dL (74-106)
[2018-01-20 06:59] LABS: Alanine Aminotransferase 24 U/L (12-78); Aspartate Aminotransferase 29 U/L (15-37); Glomerular Filtration Rate Greater Than 89 mL/min (>89)
[2018-01-20 07:01] LABS: Total Protein 5.8 g/dL (6.4-8.2)
[2018-01-20 07:02] LABS: Alkaline Phosphatase 69 U/L (45-117)
[2018-01-20] MEDS: Senna/Docusate Sodium 8.6/50 MG Tablet PO SCH ×2 (08:22→09:33)
[2018-01-20] MEDS: Ferrous Sulfate 325 MG Tablet PO SCH (08:23)
[2018-01-20] MEDS: Metoprolol Tartrate 50 MG Tablet PO SCH (08:24)
[2018-01-20] MEDS ORDERED: Tiotropium Bromide 18 MCG/ACT Inhaler INH SCH (09:00)
[2018-01-20] MEDS ORDERED: dilTIAZem CD 240 MG Capsule PO SCH (09:00)
[2018-01-20] MEDS ORDERED: Lactobacillus Acidophilus/L. Spores Tablet PO SCH (09:00)
[2018-01-20 09:13] VITALS: BP 128/74; PULSE 72; TEMP 96.3; O2SAT 100
[2018-01-20] MEDS ORDERED: Morphine Sulfate 15 MG SR Tablet PO SCH (09:28)
--- NOTE | 2018-01-20 09:41 | P.PN ---
Subjective Interval history: Follow-up for chronic abdominal pain. Patient complains of chronic right-sided abdominal pain radiating to his back sometimes. No fever or chills. He feels like he can eat more than liquid diet. Physical Exam Vital signs: Vital Signs 01/19/18 12:15 01/19/18 14:18 01/19/18 16:34 Temperature 97.6 F Pulse Rate 119 H 83 92 H Respiratory Rate 18 16 14 Blood Pressure 127/79 135/80 115/89 Pulse Oximetry 100 100 01/19/18 16:55 01/19/18 20:00 01/20/18 00:00 Temperature 98.8 F 98.8 F Pulse Rate 77 69 Respiratory Rate 18 18 18 Blood Pressure 125/85 126/86 Pulse Oximetry 99 99 01/20/18 08:00 Temperature 96.3 F L Pulse Rate 72 Respiratory Rate 18 Blood Pressure 128/74 Pulse Oximetry 100 Intake & Output 01/19/18 01/20/18 01/20/18 18:59 06:59 18:59 Intake Total 600 / 600 2050 / 2050 Output Total 1850 / 1850 Balance 600 / 600 200 / 200 Weight 60 kg 60.4 kg Intake: IV 600 / 600 1000 / 1000 NS Inj 1,000 ML @ 100 mls/hr IV 1000 / 1000 .CONT .Q10H JANETTE Rx#:[id number] NS Inj 500 ML @ 1000 mls/hr IV. 500 / 500 SIG BOLUS JANETTE Rx#:[id number] Rocephin Inj 1,000 MG In NS Inj 100 / 100 100 ML @ 200 mls/hr IV.SIG Q24H JANETTE Rx#:[id number] Oral 1050 / 1050 Output: Urine 1850 / 1850 Other: Date of Last Bowel Movement 01/19/18 Weight On Admission 60 kg Narrative: GENERAL: Alert, oriented x3, NAD. SKIN: Warm and dry. HEAD: Normocephalic. EYES: No scleral icterus. No injection or drainage. NECK: Supple, trachea midline. No JVD or lymphadenopathy. CARDIOVASCULAR: Regular rate and rhythm without murmurs, gallops, or rubs. RESPIRATORY: Breath sounds equal bilaterally. No accessory muscle use. GASTROINTESTINAL: Abdomen soft, tender to palpation on the right side lower and upper quadrant, nondistended. MUSCULOSKELETAL: No cyanosis, or edema. BACK: Nontender without obvious deformity. No CVA tenderness. Results - Labs CBC & Chem 7: 01/20/18 04:50 01/20/18 04:50 Laboratory Results - last 24 hr 01/19/18 01/19/18 01/19/18 13:36 13:36 13:36 CBC w Diff Auto diff final WBC 6.3 RBC 4.42 L Hgb 11.6 L Hct 35.0 L MCV 79.4 L MCH 26.2 L MCHC 33.0 RDW 18.3 H Plt Count 477 H D MPV 8.1 Neut % (Auto) 55.0 Lymph % (Auto) 33.2 [place] % (Auto) 9.8 H Eos % (Auto) 1.0 Baso % (Auto) 1.0 Neut # (Auto) 3.4 Lymph # (Auto) 2.1 [place] # (Auto) 0.6 Eos # (Auto) 0.1 Baso # (Auto) 0.1 WBC Differential . Differential Comment . PT 13.2 H INR 1.3 APTT 33.2 H Sodium 136 Potassium 4.4 Chloride 104 Carbon Dioxide 24.8 Anion Gap 7 BUN 8 Creatinine 0.77 Estimated GFR Greater than 89 Random Glucose 88 Lactic Acid Calcium 7.8 L Magnesium 1.9 Total Bilirubin 0.3 AST 34 ALT 28 Alkaline Phosphatase 80 Troponin I Less than 0.02 L B-Natriuretic Peptide Total Protein 6.7 Albumin 3.1 L Lipase 126 01/19/18 01/19/18 01/20/18 13:36 13:36 04:50 CBC w Diff Auto diff final WBC 6.0 RBC 3.86 L Hgb 9.8 L Hct 31.2 L MCV 80.8 MCH 25.4 L MCHC 31.5 L RDW 17.6 H Plt Count 447 MPV 8.1 Neut % (Auto) 39.3 Lymph % (Auto) 42.2 [place] % (Auto) 11.7 H Eos % (Auto) 3.2 Baso % (Auto) 3.6 H Neut # (Auto) 2.3 Lymph # (Auto) 2.6 [place] # (Auto) 0.7 Eos # (Auto) 0.2 Baso # (Auto) 0.2 WBC Differential . Differential Comment . PT INR APTT Sodium Potassium Chloride Carbon Dioxide Anion Gap BUN Creatinine Estimated GFR Random Glucose Lactic Acid 1.9 Calcium Magnesium Total Bilirubin AST ALT Alkaline Phosphatase Troponin I B-Natriuretic Peptide 278 H Total Protein Albumin Lipase 01/20/18 04:50 CBC w Diff WBC RBC Hgb Hct MCV MCH MCHC RDW Plt Count MPV Neut % (Auto) Lymph % (Auto) [place] % (Auto) Eos % (Auto) Baso % (Auto) Neut # (Auto) Lymph # (Auto) [place] # (Auto) Eos # (Auto) Baso # (Auto) WBC Differential Differential Comment PT INR APTT Sodium 137 Potassium 4.3 Chloride 104 Carbon Dioxide 25.0 Anion Gap 8 BUN 7 Creatinine 0.68 Estimated GFR Greater than 89 Random Glucose 81 Lactic Acid Calcium 7.5 L Magnesium Total Bilirubin 0.5 AST 29 ALT 24 Alkaline Phosphatase 69 Troponin I B-Natriuretic Peptide Total Protein 5.8 L D Albumin 2.8 L Lipase - Imaging Impressions Chest X-Ray 01/19/18 12:37 CONCLUSION: 1. Stable patchy airspace opacities in the left upper lobe which could represent residual infiltrate or possible scar. 2. Chronic scarring and/or honeycombing in the left lung base. Gallbladder Ultrasound 01/19/18 12:37 CONCLUSION: 1. There is a small oval cyst in the right kidney, otherwise unremarkable. Abdomen/Pelvis CT 01/19/18 12:39 CONCLUSION: 1. The gallbladder appears partially contracted but otherwise unremarkable. 2. Nonspecific, nonobstructive bowel gas pattern which may represent an ileus or gastroenteritis. No oral or intravenous contrast was given limiting the sensitivity with poor separation the bowel loops and mesentery. Assessment and Plan - Plan 67-year-old male with history of A. fib on Eliquis, COPD, CHF, prior PE/DVT, HTN , chronic pain on pain management, presents with ongoing right-sided abdominal pain, worse over the past week. Epigastric/RUQ/RLQ Abdominal Pain: recently admit for the same, workup with abdomen/pelvis CT, GB ultrasound, and HIDA scan was mostly unremarkable. -Lipase and LFTs wnl, no leukocytosis, afebrile -CT abd/pelvis 01/19 reviewed, shows gallbladder appears partially contracted but otherwise unremarkable; Nonspecific, nonobstructive bowel gas pattern which may represent an ileus or gastroenteritis. -GB U/S 01/19 shows small oval cyst in the right kidney, otherwise unremarkable. -Patient is refusing to undergo HIDA scan -We will discontinue IV ceftriaxone -Advance diet to cardiac diet -Gentle IVF hydration, antiemetics prn, pain control with IV morphine prn -ER contacted GI Dr. Sparks, recommended admission and general surgery consultation -Consult General Surgery - Will discuss with surgery. Probably no indication to do cholecystectomy. COPD: chronic, does not appear to be in exacerbation -CXR reviewed, shows Stable patchy airspace opacities in the left upper lobe which could represent residual infiltrate or possible scar; Chronic scarring and /or honeycombing in the left lung base. -Continue patient's Spiriva -patient has documented allergy to albuterol Atrial Fibrillation: chronic -We can likely continue Apixaban. -Continue patient's Cardizem CD 240mg daily and metoprolol 50mg bid -Monitor on telemetry Hypertension: chronic, stable -continue patient's cardizem and metoprolol -Monitor BP and adjust antihypertensives as needed GERD: chronic -continue patient's PPI Chronic Pain: chronic -continue patient's morphine ER 15mg po bid -continue outpatient f/up with pain management CHF: chronic, does not appear to be in fluid overload -caution with IVF hydration -continue outpatient f/up with adjustment examiner Dr. Clay Microcytic Iron Deficient Anemia: iron panel on previous admission consistent with iron deficiency -hemoccult negative on 12/28/17 -continue patient's ferrous sulfate bid -monitor CBC DVT Prophylaxis: teds/SCDs. Likely d/c home today.
--- NOTE | 2018-01-20 20:01 | ECG ---
Date Performed: 01/19/2018 Time Performed: 12:50:56 PTAGE: 67 years EKG: ATRIAL FIBRILLATION WITH RAPID VENTRICULAR RESPONSE ABNORMAL RHYTHM ECG PREVIOUS TRACING : 01/03/2018 10.52 Since the previous tracing, no significant change noted DOCTOR: Mauro Avalos Interpretating Date/Time 01/20/2018 20:00:18
== END 2018-01-20 11:30 | disposition home or self-care (01) ==
LOC: PHED 12:12 → PHEDA 12:12 → PH3 16:30
PROVIDERS: ADMIT Hospitalist; ATTEND Hospitalist

== ENCOUNTER 2018-02-22 15:55 | Inpatient (IN) ==
[2018-02-22] MEDS ORDERED: MethylPREDNISolone Sod Succinate Inj 125 MG/2 ML Vial IV.PUSH ONE (16:17)
--- NOTE | 2018-02-22 16:28 | ED ---
HPI General Chief Complaint: Respiratory Symptoms Stated Complaint: sob/elev pulse/hx A fib Time Seen by Provider: 02/22/18 16:13 Source: patient Mode of arrival: ambulatory Limitations: no limitations History of Present Illness HPI narrative: The patient is a 67-year-old male who appears thence to the emergency department via private vehicle for right sided pleuritic chest pain of 4 days duration. The patient states he developed a productive cough 4 days ago producing yellow to green sputum, then developed right lateral inferior chest wall pain that is worse with inspiration, certain movements, and occasionally palpation. The patient does have a history of COPD, continues to smoke, last cigarette this morning. The patient has a remote history of PE, approximately 1-1/2 years ago, and has been taking his Eliquis 5 mg twice a day as directed. He denies any recent lower extremity edema. The patient denies any fever, chills, or sweats. Symptoms are moderate. He denies any associated left-sided chest pain, nausea, vomiting, diarrhea, or abdominal pain. MD complaint: Reports chest pain STEMI Alert: No Onset (ago): day(s) Duration: intermittent Onset: other Pain location: Reports right chest Severity: moderate Severity scale (1-10): 6 Quality: Reports sharp Pain radiation: Reports none Relieving factors: nothing Exacerbating factors: inspiration, palpation and movement Context: Reports recent illness Associated symptoms: Reports dyspnea and cough Treatments prior to arrival chest pain: Reports none Related Data Home Medications Medication Instructions Recorded Confirmed diltiazem HCl [Cardizem CD] 240 mg PO DAILY 09/14/17 02/22/18 metoprolol tartrate [Lopressor] 50 mg PO BID 09/14/17 02/22/18 morphine 15 mg PO Q12H 09/14/17 02/22/18 tiotropium bromide [Spiriva with 1 cap INHALATION DAILY 09/14/17 02/22/18 HandiHaler] Lacto.acidophilus-Bif.animalis 1 cap PO DAILY 11/27/17 02/22/18 [Probiotic] apixaban [Eliquis] 5 mg PO BID 11/27/17 02/22/18 multivitamin 1 tab PO DAILY 11/27/17 02/22/18 clonazepam [Klonopin] 1 mg PO BID 01/29/18 02/22/18 oxycodone-acetaminophen [Percocet] 1 tab PO QID PRN 01/29/18 02/22/18 apixaban [Eliquis] 5 mg PO BID 02/22/18 02/22/18 sertraline [Zoloft] 50 mg PO DAILY 02/22/18 02/22/18 Previous Rx's Medication Instructions Recorded ferrous sulfate [Iron (ferrous 325 mg PO BID #90 tab 12/30/17 sulfate)] pantoprazole [Protonix] 40 mg PO BID #90 tab 12/30/17 Allergies Allergy/AdvReac Type Severity Reaction Status Date / Time codeine Allergy Severe TURN RED, Verified 01/29/18 21:41 SOB, HIVES ketoconazole Allergy Intermediate Rash Verified 01/29/18 21:41 Iodinated Contrast- Oral and Allergy Hives Verified 01/29/18 21:41 IV Dye [Contrast] albuterol AdvReac Arrhythmias Verified 01/29/18 21:41 Review of Systems ROS: all other systems reviewed are negative [facility] Social History Social History Substance History: No History of Abuse Second Hand Smoke Exposure: No Smoking Status: Light tobacco smoker Tobacco Type: Cigarettes How Often Do You Have a Drink Containing Alcohol: Never Recent Travel in [facility] within the Last 8 Weeks: No Recent Out of Country Travel within the Last 8 Weeks: No Exam Narrative Exam Narrative: GENERAL: Awake, alert, pleasant 67-year-old male who appears his stated age and is in no acute respiratory distress. SKIN: Focused skin assessment warm/dry. HEAD: Atraumatic. Normocephalic. EYES: Pupils equal and round. No scleral icterus. No injection or drainage. ENT: No nasal bleeding or discharge. Mucous membranes pink and moist. NECK: Trachea midline. No JVD. CARDIOVASCULAR: Irregularly irregular, tachycardic with a heart rate of 100. No audible murmur. RESPIRATORY: No accessory muscle use. Few scattered wheezes noted, few rhonchi in the right base noted. GASTROINTESTINAL: Abdomen soft, non-tender, nondistended. No rebound tenderness. MUSCULOSKELETAL: No obvious deformities. No clubbing. No cyanosis. No edema. Calves are soft bilaterally. NEUROLOGICAL: Awake and alert. No obvious cranial nerve deficits. Motor grossly within normal limits. Normal speech. PSYCHIATRIC: Appropriate mood and affect; insight and judgment normal. Course Initial Documented Vital Signs Temperature 98.3 F 02/22/18 16:07 Pulse Rate 106 H 02/22/18 16:07 Respiratory Rate 22 02/22/18 16:07 Blood Pressure 125/71 02/22/18 16:07 Pulse Oximetry 99 02/22/18 16:07 Last Documented Vital Signs Temperature 98.3 F 02/22/18 16:07 Pulse Rate 85 02/22/18 18:29 Respiratory Rate 20 02/22/18 18:29 Blood Pressure 119/73 02/22/18 18:29 Pulse Oximetry 100 02/22/18 18:29 Medical Decision Making MDM Narrative Medical decision making narrative: IV was established, labs are drawn and sent, and the patient was placed on cardiac telemetry monitoring and continuous pulse oximetry monitoring. EKG was ordered and interpreted. Chest x-ray was obtained. Patient's heart rate was in the 100, patient does have a history of PE 1-1/2 years ago, has been compliant with his Eliquis per his report. I did review the EMR, the patient had a CTA pulmonary angiogram performed November which was negative, appears to have a documented contrast oral and IV dye allergy with hives. Patient now has productive cough with right-sided pleuritic chest pain, may be bronchitis with pleurisy versus pneumonia. Patient was administered Solu-Medrol and 1 DuoNeb. The patient's chest x-ray reveals questionable upper lobe cavitary lesion, therefore, CT of the thorax was performed. CT of the thorax reveals right lower lobe pneumonia, where patient's current pleuritic chest pain is located. Patient was initially administered Levaquin, had a discussion with the patient about possible outpatient follow-up, however, he feels like he is still symptomatic her request observation. The patient's anion gap was elevated at 28, bicarb is 8.1 , therefore, lactic acid was sent to lab. The light patient's lactic acid was 1.6. Patient was hospitalized 1 month ago for abdominal pain, therefore, was administered cefepime to cover for healthcare acquired pneumonia. The patient' s primary physician is Dr. Tarango, therefore, [facility] were paged for admission. Medical Screen Exam Complete: Yes Emergency Medical Condition: Yes Differential Diagnosis Differential Diagnosis: Differential diagnosis includes pulmonary embolism, pneumonia, bronchitis, pleural effusion, pleurisy, atypical ACS, atypical cholecystitis. Lab Data Result diagrams: 02/22/18 16:30 02/22/18 17:16 Lab Results 02/22/18 02/22/18 02/22/18 Range/Units 16:30 16:30 16:30 CBC w Diff Auto diff final WBC 7.8 (4.0-11.0) th/mm3 RBC 4.11 L (4.50-5.90) mil/mm3 Hgb 10.5 L (13.0-17.0) gm/dL Hct 32.6 L (39.0-51.0) % MCV 79.3 L (80.0-100.0) fL MCH 25.6 L (27.0-34.0) pg MCHC 32.3 (32.0-36.0) % RDW 17.3 H (11.6-17.2) % Plt Count 519 H D (150-450) th/mm3 MPV 8.0 (7.0-11.0) fL Neut % (Auto) 51.6 (16.0-70.0) % Lymph % (Auto) 34.0 (9.0-44.0) % [place] % (Auto) 11.0 H (0.0-8.0) % Eos % (Auto) 0.7 (0.0-4.0) % Baso % (Auto) 2.7 H (0.0-2.0) % Neut # (Auto) 4.0 (1.8-7.7) th/mm3 Lymph # (Auto) 2.6 (1.0-4.8) th/mm3 [place] # (Auto) 0.9 (0.0-0.9) th/mm3 Eos # (Auto) 0.1 (0.0-0.4) th/mm3 Baso # (Auto) 0.2 (0.0-0.2) th/mm3 WBC Differential . Differential Comment . PT 11.6 (9.8-11.6) sec INR 1.1 Ratio APTT 30.6 (23.4-31.7) sec Puncture Site Patient Temperature O2 Saturation (90-100) % ABG pH (7.380-7.420) ABG pCO2 (38-42) mmHg ABG pO2 (61-120) mmHg ABG HCO3 (22-26) mmol/L ABG O2 Content (12.0-20.0) Vol % ABG Base Excess (-2-2) mmol/L ABG Methemoglobin (0-2) % Catalino Test Hemoglobin (12.0-16.0) G/DL Carboxyhemoglobin (0-4) % O2 Delivery Device Inspired O2 % Critical Value Sodium (136-145) meq/L Potassium (3.5-5.1) meq/L Chloride (98-107) meq/L Carbon Dioxide (21.0-32.0) meq/L Anion Gap (5-15) meq/L BUN (7-18) mg/dL Creatinine (0.60-1.30) mg/dL Estimated GFR (>89) mL/min Random Glucose (74-106) mg/dL Lactic Acid (0.4-2.0) mmol/L Calcium (8.5-10.1) mg/dL Total Bilirubin (0.2-1.0) mg/dL AST (15-37) U/L ALT (12-78) U/L Alkaline Phosphatase (45-117) U/L Total Creatine Kinase 85 (39-308) U/L Troponin I (0.02-0.05) ng/mL B-Natriuretic Peptide (0-100) pg/mL Total Protein (6.4-8.2) g/dL Albumin (3.4-5.0) g/dL 02/22/18 02/22/18 02/22/18 Range/Units 16:30 17:16 17:50 CBC w Diff WBC (4.0-11.0) th/mm3 RBC (4.50-5.90) mil/mm3 Hgb (13.0-17.0) gm/dL Hct (39.0-51.0) % MCV (80.0-100.0) fL MCH (27.0-34.0) pg MCHC (32.0-36.0) % RDW (11.6-17.2) % Plt Count (150-450) th/mm3 MPV (7.0-11.0) fL Neut % (Auto) (16.0-70.0) % Lymph % (Auto) (9.0-44.0) % [place] % (Auto) (0.0-8.0) % Eos % (Auto) (0.0-4.0) % Baso % (Auto) (0.0-2.0) % Neut # (Auto) (1.8-7.7) th/mm3 Lymph # (Auto) (1.0-4.8) th/mm3 [place] # (Auto) (0.0-0.9) th/mm3 Eos # (Auto) (0.0-0.4) th/mm3 Baso # (Auto) (0.0-0.2) th/mm3 WBC Differential Differential Comment PT (9.8-11.6) sec INR Ratio APTT (23.4-31.7) sec Puncture Site Patient Temperature O2 Saturation (90-100) % ABG pH (7.380-7.420) ABG pCO2 (38-42) mmHg ABG pO2 (61-120) mmHg ABG HCO3 (22-26) mmol/L ABG O2 Content (12.0-20.0) Vol % ABG Base Excess (-2-2) mmol/L ABG Methemoglobin (0-2) % Catalino Test Hemoglobin (12.0-16.0) G/DL Carboxyhemoglobin (0-4) % O2 Delivery Device Inspired O2 % Critical Value Sodium 139 (136-145) meq/L Potassium 3.8 (3.5-5.1) meq/L Chloride 103 (98-107) meq/L Carbon Dioxide 8.1 L (21.0-32.0) meq/L Anion Gap 28 H (5-15) meq/L BUN 14 (7-18) mg/dL Creatinine 0.82 (0.60-1.30) mg/dL Estimated GFR Greater than 89 (>89) mL/min Random Glucose 98 (74-106) mg/dL Lactic Acid 1.6 (0.4-2.0) mmol/L Calcium 8.1 L (8.5-10.1) mg/dL Total Bilirubin 0.3 (0.2-1.0) mg/dL AST 31 (15-37) U/L ALT 32 (12-78) U/L Alkaline Phosphatase 102 (45-117) U/L Total Creatine Kinase (39-308) U/L Troponin I Less than 0.02 L (0.02-0.05) ng/mL B-Natriuretic Peptide 167 H (0-100) pg/mL Total Protein 6.8 (6.4-8.2) g/dL Albumin 3.2 L (3.4-5.0) g/dL 02/22/18 Range/Units 17:58 CBC w Diff WBC (4.0-11.0) th/mm3 RBC (4.50-5.90) mil/mm3 Hgb (13.0-17.0) gm/dL Hct (39.0-51.0) % MCV (80.0-100.0) fL MCH (27.0-34.0) pg MCHC (32.0-36.0) % RDW (11.6-17.2) % Plt Count (150-450) th/mm3 MPV (7.0-11.0) fL Neut % (Auto) (16.0-70.0) % Lymph % (Auto) (9.0-44.0) % [place] % (Auto) (0.0-8.0) % Eos % (Auto) (0.0-4.0) % Baso % (Auto) (0.0-2.0) % Neut # (Auto) (1.8-7.7) th/mm3 Lymph # (Auto) (1.0-4.8) th/mm3 [place] # (Auto) (0.0-0.9) th/mm3 Eos # (Auto) (0.0-0.4) th/mm3 Baso # (Auto) (0.0-0.2) th/mm3 WBC Differential Differential Comment PT (9.8-11.6) sec INR Ratio APTT (23.4-31.7) sec Puncture Site Right radial Patient Temperature 98.6 O2 Saturation 96 (90-100) % ABG pH 7.46 H (7.380-7.420) ABG pCO2 39 (38-42) mmHg ABG pO2 87 (61-120) mmHg ABG HCO3 27 H (22-26) mmol/L ABG O2 Content 13.4 (12.0-20.0) Vol % ABG Base Excess 3.5 H (-2-2) mmol/L ABG Methemoglobin 1.1 (0-2) % Catalino Test Present Hemoglobin 9.9 L (12.0-16.0) G/DL Carboxyhemoglobin 2.6 (0-4) % O2 Delivery Device None Inspired O2 21 % Critical Value No Sodium (136-145) meq/L Potassium (3.5-5.1) meq/L Chloride (98-107) meq/L Carbon Dioxide (21.0-32.0) meq/L Anion Gap (5-15) meq/L BUN (7-18) mg/dL Creatinine (0.60-1.30) mg/dL Estimated GFR (>89) mL/min Random Glucose (74-106) mg/dL Lactic Acid (0.4-2.0) mmol/L Calcium (8.5-10.1) mg/dL Total Bilirubin (0.2-1.0) mg/dL AST (15-37) U/L ALT (12-78) U/L Alkaline Phosphatase (45-117) U/L Total Creatine Kinase (39-308) U/L Troponin I (0.02-0.05) ng/mL B-Natriuretic Peptide (0-100) pg/mL Total Protein (6.4-8.2) g/dL Albumin (3.4-5.0) g/dL Imaging Data Radiologist's impression: Chest X-Ray 02/22/18 16:17 CONCLUSION: Increasing consolidative opacity in the left upper lobe bronchiectasis and possible cavitation. Chest CT 02/22/18 16:52 CONCLUSION: 1. Areas of patchy increased opacity now noted in the right lower lobe in areas of honeycombing and scarring. This could represent an early pneumonia. 2. Stable scarring in the left upper lobe with adjacent levels. There are no new masses or lesions in this region. 3. Underlying emphysema again noted as well as coronary artery calcifications. ECG Data EKG Prior to Arrival: No Attestation: I personally reviewed and interpreted this ECG as follows: Interpretation: EKG reveals atrial fibrillation with rapid ventricular response , rate 105. Discharge Plan Discharge Disposition Patient Disposition: ED Admit(ED Internal Use Only) Discharge Condition Condition: Stable Discharge Order Discharge Orders: ED Use Only Admit Order (Routine); Ordered 02/22/18 Ordered By: Delano Terry Discharge Details Diagnosis: Pneumonia, COPD (chronic obstructive pulmonary disease), Afib, Metabolic acidosis, increased anion gap Physicians Team ED Provider: Delano Terry Primary Care Provider: Chance Tarango Rxs /Orders / Referrals /Forms Prescriptions: No Action diltiazem HCl [Cardizem CD] 240 mg Capsule,Extended Release 24hr 240 mg PO DAILY RF: 0 tiotropium bromide [Spiriva with HandiHaler] 18 mcg Capsule, W/Inhalation Device 1 cap INHALATION DAILY RF: 0 metoprolol tartrate [Lopressor] 50 mg Tablet 50 mg PO BID RF: 0 morphine 15 mg Tablet Extended Release 15 mg PO Q12H RF: 0 ferrous sulfate [Iron (ferrous sulfate)] 325 mg (65 mg iron) Tablet 325 mg PO BID Qty: 90 RF: 0 pantoprazole [Protonix] 20 mg Tablet,Delayed Release (Dr/Ec) 40 mg PO BID Qty: 90 RF: 0 oxycodone-acetaminophen [Percocet] 10-325 mg Tablet 1 tab PO QID PRN (Reason: Pain, Moderate) RF: 0 clonazepam [Klonopin] 1 mg Tablet 1 mg PO BID RF: 0 apixaban [Eliquis] 5 mg Tablet 5 mg PO BID RF: 0 Lacto.acidophilus-Bif.animalis [Probiotic] 5 billion cell Capsule, Sprinkle 1 cap PO DAILY RF: 0 multivitamin 1 tab PO DAILY RF: 0 sertraline [Zoloft] 50 mg Tablet 50 mg PO DAILY RF: 0 apixaban [Eliquis] 5 mg Tablet 5 mg PO BID RF: 0 Status ED Status: Admitted Patient
[2018-02-22 16:40] LABS: Baso # (Auto) 0.2 th/mm3 (0.0-0.2); Baso % (Auto) 2.7 % (0.0-2.0); Eos # (Auto) 0.1 th/mm3 (0.0-0.4); Eos % (Auto) 0.7 % (0.0-4.0); Hematocrit 32.6 % (39.0-51.0); Hemoglobin 10.5 gm/dL (13.0-17.0); Lymph # (Auto) 2.6 th/mm3 (1.0-4.8); Mean Corpuscular HGB Conc 32.3 % (32.0-36.0); Mean Corpuscular Hemoglobin 25.6 pg (27.0-34.0); Mean Corpuscular Volume 79.3 fL (80.0-100.0); Mono # (Auto) 0.9 th/mm3 (0.0-0.9); Neut % (Auto) 51.6 % (16.0-70.0); Platelet Count 519 th/mm3 (150-450); Red Blood Count 4.11 mil/mm3 (4.50-5.90); Red Cell Distribution Width 17.3 % (11.6-17.2); White Blood Count 7.8 th/mm3 (4.0-11.0)
--- NOTE | 2018-02-22 16:48 | XR ---
EXAM DATE: 02/22/2018 4:44 PM EST AGE/SEX: 67 years / Male INDICATIONS: Chest pain. CLINICAL DATA: This is the patient's initial encounter. Patient reports that signs and symptoms have been present for 2 days and indicates a pain score of 5/10. MEDICAL/SURGICAL HISTORY: . Chronic obstructive pulmonary disease. Congestive heart failure. A trial fibrillation. None. COMPARISON: [facility], CHEST 1V SINGLE AP, 01/19/2018. [facility], CHEST 1V SINGLE AP, 11/27/2017. [facility], CHEST 1V SINGLE AP, 09/14/2017. [facility], CTA PULMONARY W CONTRAST W 3D, 11/27/2017. . FINDINGS: There are coarse parenchymal markings and hyperinflation identified bilaterally with bronchiectasis. There is increased mass opacity at site of previously noted left upper lobe consolidation. There is p ossible cavitation suspected. CONCLUSION: Increasing consolidative opacity in the left upper lobe bronchiectasis and possible cavitation. Electronically signed by: Javy Ortega MD 02/22/2018 4:47 PM EST
[2018-02-22 16:53] LABS: Activated Partial Thrombo Time 30.6 sec (23.4-31.7); INR 1.1 Ratio; Prothrombin Time 11.6 sec (9.8-11.6)
[2018-02-22] MEDS ORDERED: Morphine Sulfate Inj 2 MG/ML Vial IV.PUSH ONE ×2 (17:23→19:19)
[2018-02-22] MEDS ORDERED: Ketorolac Inj 30 MG/ML (IVP) Vial IV.PUSH ONE (17:23)
--- NOTE | 2018-02-22 17:24 | CT ---
EXAM DATE: 02/22/2018 5:17 PM EST AGE/SEX: 67 years / Male INDICATIONS: Abnormal chest x-ray demonstrating increased mass opacity in the left upper lobe. Chest pain. CLINICAL DATA: This is the patient's initial encounter. Patient reports that signs and symptoms have been present for 2 days and indicates a pain score of 5/10. MEDICAL/SURGICAL HISTORY: Chronic obstructive pulmonary disease. Congestive heart failure. Atrial fibrillation. None. RADIATION DOSE: 6.80 CTDI (mGy) COMPARISON: [facility], [facility]A PULMONARY W CONTRAST W 3D, 11/27/2017. . TECHNIQUE: Multiple contiguous axial images were obtained through the chest without contrast. Image s were obtained in suspended respiration using multiple row detector helical technique. Using automa violetta exposure control and adjustment of the mA and/or kV according to patient size, radiation dose was kept as low as reasonably achievable to obtain optimal diagnostic quality images. DICOM format imag e data is available electronically for review and comparison. FINDINGS: Lungs: The lungs are symmetrically aerated. Coarse stable chronic appearing infiltrate is again note d in the anterior left upper lobe characteristic of scarring. There are multiple adjacent blebs again noted. There are no new masses or areas of infiltrate in the left upper lobe. Underlying emphysema i s again noted with honeycombing in the posterior right lower lobe. There are patchy areas of increase d opacity now noted in the right lower lobe. Mediastinum: There is good visualization of the great vessels of the middle mediastinum. No evidenc e of mediastinal or hilar adenopathy/mass. Coronary artery calcifications are again noted. Pleurae: No evidence of focal thickening or pleural effusion. Axillae: Unremarkable. Bony Structures: Unremarkable. Miscellaneous: The examination was extended to include the upper abdomen, and both adrenal glands ar e normal in size and configuration. CONCLUSION: 1. Areas of patchy increased opacity now noted in the right lower lobe in areas of honeycombing and scarring. This could represent an early pneumonia. 2. Stable scarring in the left upper lobe with adjacent levels. There are no new masses or lesions i n this region. 3. Underlying emphysema again noted as well as coronary artery calcifications. Electronically signed by: James Pugh MD 02/22/2018 5:23 PM EST
[2018-02-22] MEDS ORDERED: Levofloxacin 500 mg Premix Inj 500 MG/100 ML PIGGYBACK IV.SIG ONE (17:26)
[2018-02-22 17:44] LABS: Anion Gap 28 meq/L (5-15); Carbon Dioxide 8.1 meq/L (21.0-32.0)
[2018-02-22 17:45] LABS: Blood Urea Nitrogen 14 mg/dL (7-18); Chloride 103 meq/L (98-107); Potassium 3.8 meq/L (3.5-5.1); Sodium 139 meq/L (136-145)
[2018-02-22 17:48] LABS: Glucose,Random 98 mg/dL (74-106)
[2018-02-22 17:49] LABS: Alanine Aminotransferase 32 U/L (12-78); Aspartate Aminotransferase 31 U/L (15-37); Calcium 8.1 mg/dL (8.5-10.1)
[2018-02-22 17:50] LABS: Albumin 3.2 g/dL (3.4-5.0); Alkaline Phosphatase 102 U/L (45-117); Total Protein 6.8 g/dL (6.4-8.2)
[2018-02-22 17:52] LABS: Glomerular Filtration Rate Greater Than 89 mL/min (>89)
[2018-02-22 18:07] LABS: ABG Base Excess 3.5 mmol/L (-2-2); ABG PCO2 39 mmHg (38-42); ABG PO2 87 mmHg (61-120)
[2018-02-22] MEDS ORDERED: Bisacodyl 10 MG Supp RECTAL PRN (19:44)
[2018-02-22] MEDS ORDERED: guaiFENesin/Dextromethorphan 200 MG/20 MG 10 ML UDC PO PRN (19:44)
[2018-02-22] MEDS ORDERED: Morphine Sulfate Inj 2 MG/ML Vial IV.PUSH PRN (19:44)
[2018-02-22] MEDS ORDERED: Acetaminophen 325 MG Tablet PO PRN (19:44)
[2018-02-22 20:20] LABS: Anion Gap 8 meq/L (5-15); Blood Urea Nitrogen 15 mg/dL (7-18); Calcium 7.5 mg/dL (8.5-10.1); Carbon Dioxide 25.2 meq/L (21.0-32.0); Chloride 102 meq/L (98-107); Glomerular Filtration Rate Greater Than 89 mL/min (>89); Glucose,Random 119 mg/dL (74-106); Potassium 4.5 meq/L (3.5-5.1); Sodium 135 meq/L (136-145)
[2018-02-22 20:25] LABS: Creatine Kinase 82 U/L (39-308)
[2018-02-22] MEDS: Morphine Sulfate 15 MG SR Tablet PO SCH (20:44)
[2018-02-22] MEDS: Sod Chloride 0.9% Inj 1,000 ML IV.CONT SCH (21:29)
[2018-02-22] MEDS: Aztreonam Inj 2 GM in Sodium Chloride 0.9% Inj 100 ML IV.SIG SCH (21:30)
[2018-02-22] MEDS: Pantoprazole Sodium 20 MG DR Tablet PO SCH (21:31)
[2018-02-22] MEDS: clonazePAM 1 MG Tablet PO SCH (21:32)
[2018-02-22] MEDS: Ferrous Sulfate 325 MG Tablet PO SCH (21:32)
[2018-02-22] MEDS: oxyCODONE/Acetaminophen 10/325 Tablet PO PRN (21:32)
[2018-02-22] MEDS: Metoprolol Tartrate 50 MG Tablet PO SCH (21:32)
[2018-02-22] MEDS: Senna/Docusate Sodium 8.6/50 MG Tablet PO SCH (21:36)
[2018-02-23 02:34] LABS: Creatine Kinase 70 U/L (39-308)
[2018-02-23] MEDS: oxyCODONE/Acetaminophen 10/325 Tablet PO PRN ×4 (03:47→22:22)
[2018-02-23] MEDS: Aztreonam Inj 2 GM in Sodium Chloride 0.9% Inj 100 ML IV.SIG SCH ×3 (03:48→22:43)
[2018-02-23] MEDS: Sod Chloride 0.9% Inj 1,000 ML IV.CONT SCH ×2 (06:31→16:13)
--- NOTE | 2018-02-23 08:37 | ECG ---
Date Performed: 02/22/2018 Time Performed: 16:13:53 PTAGE: 67 years EKG: ATRIAL FIBRILLATION WITH RAPID VENTRICULAR RESPONSE ABNORMAL RHYTHM ECG INTERPRETATION BASE D ON A DEFAULT AGE OF 40 YEARS PREVIOUS TRACING : 01/19/2018 12.50 DOCTOR: Jovanni Schwarz Interpretating Date/Time 02/23/2018 08:34:11
[2018-02-23] MEDS ORDERED: Vancomycin Consult Pharmacy OTHER PRN (09:26)
--- NOTE | 2018-02-23 09:36 | P.HPIM ---
History of Present Illness Primary Care Physician: Chance Tarango MD Chief Complaint: Shortness of breath History of Present Illness: The patient is a 67-year-old male with past medical history of COPD, atrial fibrillation, pneumonia and CHF who is presenting to the hospital with shortness of breath and palpitations. The patient says that his home health aide saw him yesterday and said he did not look well. The patient felt like he had pneumonia. He said his heart rate was in the 140s and he felt the palpitations. He endorsed a cough with green sputum production. He has been having worsening shortness of breath. He took his Spiriva at home. He says that he has had a scraping pain on the lower right side of his chest. He said he has not been able to get comfortable. He says he has been feeling unwell for 2-3 days. He says he has had low-grade fevers, chills. He also says that his body has been shaking because of how cold he is. He has been feeling very weak. He has not been eating. He says his chronic pain medications have recently been reduced to 50 mg of MS Contin twice daily and 10 mg of oxycodone for breakthrough. He says that he has had weight loss and has seen multiple GI doctors who seem to have different opinions for why he is losing weight. Inpatient Certification: I certify that the inpatient services were ordered in accordance with Medicare regulations governing the order. This includes certification that hospital inpatient services are reasonable and necessary and in the case of services not specified as inpatient-only under 42 CFR 419.22(n), that they are appropriately provided as inpatient services in accordance to with the 2-midnight benchmark under 43 CFR 412.3(e) Estimated Total Length of Stay (Days): 2 Plans for Post Hospital Care: Home Review of Systems All other systems reviewed negative except as stated in HPI PMFSH - History History Provided By: Patient - Medical History Medical History: Medical History (Last Reviewed 02/23/18 @ 09:34 by James Tinajero DO) Afib (Chronic) CHF (congestive heart failure) (Chronic) C. difficile diarrhea (Resolved) Pulmonary embolus (Chronic) DVT (deep venous thrombosis) (Chronic) TIA (transient ischemic attack) (Resolved) Pneumonia (Resolved) COPD (chronic obstructive pulmonary disease) (Chronic) Anxiety Cataract Chronic pain Depression PTSD (post-traumatic stress disorder) Pain management - Surgical History Surgical History: Surgical History (Last Reviewed 02/22/18 @ 16:48 by Mily Barrera RN) History of ankle surgery (Chronic) History of colonoscopy History of esophagogastroduodenoscopy History of eye surgery History of tonsillectomy - Family History Family History: Family History (Last Reviewed 02/02/18 @ 13:31 by Genaro Cabrera MD) Mother Buerger disease Grandparent Buerger disease - Social History I have reviewed the patient's Social History: Yes - Tobacco History Second Hand Smoke Exposure: Yes Tobacco Use In Past 30 Days: Yes Smoking Status: Current every day smoker Tobacco Type: Cigarettes - Alcohol History How Often Do You Have a Drink Containing Alcohol: Monthly or less (Recently quit ) - Substance Use History Substance History: No History of Abuse - Travel History [facility] Travel in the [facility] Within the Last 8 Weeks: No Recent Travel Out of the Country Within the Last 8 Weeks: No - Immunization History Tetanus Immunization: <5 Years Hx Influenza Vaccine This Season: Yes Medications and Allergies Active Medications: Active Medications Acetaminophen (Tylenol) 650 mg PO Q4H PRN PRN Reason: Temp > 100.4 Al Hydroxide/Mg Hydroxide (Milk Of Magnesia Liq) 30 ml PO Q12H PRN PRN Reason: Mild Constipation Apixaban (Eliquis) 5 mg PO BID [facility] Last Admin: 02/22/18 21:32 Dose: 5 mg Bisacodyl (Dulcolax Supp) 10 mg RECTAL DAILY PRN PRN Reason: SEVERE CONSITIPATION Clonazepam (Klonopin) 1 mg PO BID [facility] Last Admin: 02/22/18 21:32 Dose: 1 mg Diltiazem HCl (Cardizem Cd 24hr) 240 mg PO DAILY [facility] Ferrous Sulfate (Ferosul) 325 mg PO BID [facility] Last Admin: 02/22/18 21:32 Dose: 325 mg Guaifenesin/Dextromethorphan (Robitussin Dm Liq) 10 ml PO Q4H PRN PRN Reason: COUGH Aztreonam 2 gm/ Sodium (Chloride) 100 mls @ 200 mls/hr IV.SIG Q8H [facility] Last Infusion: 02/23/18 04:30 Dose: Infused Sodium Chloride (Ns Inj) 1,000 mls @ 100 mls/hr IV.CONT .Q10H [facility] Last Admin: 02/23/18 06:31 Dose: 100 mls/hr Lactobacillus Acidophilus (Lactinex) 1 tab PO DAILY [facility] Lactulose (Lactulose Liq) 30 ml PO DAILY PRN PRN Reason: SEVERE CONSITIPATION Metoprolol Tartrate (Lopressor) 50 mg PO BID [facility] Last Admin: 02/22/18 21:32 Dose: 50 mg Morphine Sulfate (Oramorph Sr) 15 mg PO Q12H [facility] Last Admin: 02/22/18 20:44 Dose: Not Given Morphine Sulfate (Morphine Inj) 4 mg IV.PUSH Q3H PRN PRN Reason: BREAKTHROUGH PAIN Multivitamins (Theragran) 1 tab PO DAILY [facility] Ondansetron HCl (Zofran Inj) 4 mg IV.PUSH Q6H PRN PRN Reason: NAUSEA OR VOMITING Oxycodone/Acetaminophen (Percocet 10/325 Mg) 1 tab PO QID PRN PRN Reason: Pain Scale 3 To 10 Last Admin: 02/23/18 03:47 Dose: 1 tab Pantoprazole Sodium (Protonix) 40 mg PO BID [facility] Last Admin: 02/22/18 21:31 Dose: 40 mg Pharmacy Profile Note (Vancomycin Consult Pharmacy) 1 each OTHER UNSCH PRN PRN Reason: Pharmacy to dose Senna/Docusate Sodium (Amy-Colace) 1 tab PO BID [facility] Last Admin: 02/22/18 21:36 Dose: Not Given Sennosides (Senokot) 17.2 mg PO Q12H PRN PRN Reason: Moderate Constipation Sertraline HCl (Zoloft) 50 mg PO DAILY [facility] Sodium Chloride (Ns Flush) 2 ml IV.FLUSH BID [facility] Last Admin: 02/22/18 21:36 Dose: 2 ml Sodium Chloride (Ns Flush) 2 ml IV.FLUSH PRN PRN PRN Reason: FLUSH AFTER USING IV ACCESS Tiotropium [place] (Spiriva 18 Mcg Inh) 18 mcg INH DAILY [facility] Allergies Allergy/AdvReac Type Severity Reaction Status Date / Time codeine Allergy Severe TURN RED, Verified 01/29/18 21:41 SOB, HIVES ketoconazole Allergy Intermediate Rash Verified 01/29/18 21:41 Iodinated Contrast- Oral and Allergy Hives Verified 01/29/18 21:41 IV Dye [Contrast] albuterol AdvReac Arrhythmias Verified 01/29/18 21:41 Home Medications Medication Instructions Recorded Confirmed Type diltiazem HCl [Cardizem CD] 240 mg PO DAILY 09/14/17 02/22/18 History metoprolol tartrate [Lopressor] 50 mg PO BID 09/14/17 02/22/18 History morphine 15 mg PO Q12H 09/14/17 02/22/18 History tiotropium bromide [Spiriva with 1 cap INHALATION DAILY 09/14/17 02/22/18 History HandiHaler] Lacto.acidophilus-Bif.animalis 1 cap PO DAILY 11/27/17 02/22/18 History [Probiotic] apixaban [Eliquis] 5 mg PO BID 11/27/17 02/22/18 History multivitamin 1 tab PO DAILY 11/27/17 02/22/18 History clonazepam [Klonopin] 1 mg PO BID 01/29/18 02/22/18 History oxycodone-acetaminophen [Percocet] 1 tab PO QID PRN 01/29/18 02/22/18 History apixaban [Eliquis] 5 mg PO BID 02/22/18 02/22/18 History sertraline [Zoloft] 50 mg PO DAILY 02/22/18 02/22/18 History Exam Vital signs: Vital Signs 02/22/18 16:07 02/22/18 16:17 02/22/18 16:29 Temperature 98.3 F Pulse Rate 106 H 98 H Respiratory Rate 22 20 Blood Pressure 125/71 Pulse Oximetry 99 99 98 02/22/18 16:56 02/22/18 17:34 02/22/18 17:40 Temperature Pulse Rate 92 H 93 H Respiratory Rate 22 22 20 Blood Pressure 132/72 130/77 Pulse Oximetry 99 100 02/22/18 18:00 02/22/18 18:29 02/22/18 19:45 Temperature 98.6 F Pulse Rate 85 89 Respiratory Rate 19 20 20 Blood Pressure 119/73 138/88 Pulse Oximetry 100 100 02/22/18 20:00 02/22/18 21:00 02/23/18 00:00 Temperature 97.3 F L 97.6 F Pulse Rate 90 91 H Respiratory Rate 18 18 Blood Pressure 130/63 124/73 Pulse Oximetry 98 98 97 02/23/18 04:35 02/23/18 08:35 02/23/18 08:57 Temperature 97.9 F Pulse Rate 86 Respiratory Rate 18 18 Blood Pressure 108/74 Pulse Oximetry 97 98 Intake & Output 02/22/18 02/23/18 02/23/18 18:59 06:59 18:59 Intake Total 100 / 100 1950 / 1950 Output Total 650 / 650 Balance 100 / 100 1300 / 1300 Weight 63 kg 61.2 kg Intake: IV 100 / 100 1150 / 1150 NS Inj 1,000 ML @ 100 mls/hr IV 850 / 850 .CONT .Q10H [facility] Rx#:[id number] Azactam Inj 2 GM In NS Inj 100 200 / 200 ML @ 200 mls/hr IV.SIG Q8H [facility] Rx#:[id number] Maxipime Inj 2,000 MG In NS Inj 100 / 100 100 ML @ 200 mls/hr IV.SIG ONCE ONE Rx#:[id number] Levaquin 500 mg Premix Inj 500 100 / 100 mg In 100 ml @ 100 mls/hr IV. SIG ONCE ONE Rx#:[id number] Oral 800 / 800 Output: Urine 650 / 650 Other: Date of Last Bowel Movement 02/22/18 Weight On Admission 54.683 kg Narrative: GENERAL: NAD. SKIN: Focused skin assessment warm/dry. HEAD: Atraumatic. Normocephalic. EYES: Pupils equal and round. No scleral icterus. No injection or drainage. ENT: No nasal bleeding or discharge. Mucous membranes pink and moist. NECK: Trachea midline. No JVD. CARDIOVASCULAR: Irregularly irregular. No audible murmur. RESPIRATORY: Decreased breath sounds. GASTROINTESTINAL: Abdomen soft, non-tender, nondistended. No rebound tenderness. MUSCULOSKELETAL: No obvious deformities. No clubbing. No cyanosis. No edema. Calves are soft bilaterally. NEUROLOGICAL: Awake and alert. No obvious cranial nerve deficits. Motor grossly within normal limits. Normal speech. Results - Labs CBC & Chem 7: 02/22/18 16:30 02/22/18 20:00 Labs: Short CBC 02/22/18 Range/Units 16:30 WBC 7.8 (4.0-11.0) th/mm3 Hgb 10.5 L (13.0-17.0) gm/dL Hct 32.6 L (39.0-51.0) % Plt Count 519 H D (150-450) th/mm3 BMP 02/22/18 02/22/18 17:16 20:00 Sodium 139 135 L Potassium 3.8 4.5 Chloride 103 102 Carbon Dioxide 8.1 L 25.2 D BUN 14 15 Creatinine 0.82 0.85 Calcium 8.1 L 7.5 L Cardiac Enzymes 02/22/18 02/22/18 02/22/18 Range/Units 16:30 17:16 20:00 Total Creatine Kinase 85 82 (39-308) U/L Troponin I Less than 0.02 L Less than 0.02 L (0.02-0.05) ng/mL 02/23/18 Range/Units 01:58 Total Creatine Kinase 70 (39-308) U/L Troponin I Less than 0.02 L (0.02-0.05) ng/mL Liver Function 02/22/18 Range/Units 17:16 Total Bilirubin 0.3 (0.2-1.0) mg/dL AST 31 (15-37) U/L ALT 32 (12-78) U/L Alkaline Phosphatase 102 (45-117) U/L Albumin 3.2 L (3.4-5.0) g/dL - Imaging Impressions Chest X-Ray 02/22/18 16:17 CONCLUSION: Increasing consolidative opacity in the left upper lobe bronchiectasis and possible cavitation. Chest CT 02/22/18 16:52 CONCLUSION: 1. Areas of patchy increased opacity now noted in the right lower lobe in areas of honeycombing and scarring. This could represent an early pneumonia. 2. Stable scarring in the left upper lobe with adjacent levels. There are no new masses or lesions in this region. 3. Underlying emphysema again noted as well as coronary artery calcifications. Caprini VTE Risk Assessment Caprini VTE Risk Assessment: Moderate/High Risk (score >= 2) Caprini Risk Assessment Model: Point Value = 1 Point Value = 2 Point Value = 3 Point Value = 5 Age 41-60 Minor surgery BMI > 25 kg/m2 Swollen legs Varicose veins or History of unexplained or recurrent spontaneous Oral contraceptives or hormone replacement Sepsis (< 1 month) Serious lung disease, including pneumonia (< 1 month) Abnormal pulmonary function Acute myocardial infarction Congestive heart failure (< 1 month) History of inflammatory bowel disease Medical patient at bed rest Age 61-74 Arthroscopic surgery Major open surgery (> 45 min) Laparoscopic surgery (> 45 min) Malignancy Confined to bed (> 72 hours) Immobilizing plaster cast Central venous access Age >= 75 History of VTE Family history of VTE Factor V Leiden Prothrombin [id number] Lupus anticoagulant Anticardiolipin antibodies Elevated serum homocysteine Heparin-induced thrombocytopenia Other congenital or acquired thrombophilia Stroke (< 1 month) Elective arthroplasty Hip, pelvis, or leg fracture Acute spinal cord injury (< 1 month) Prophylaxis Regimen: Total Risk Factor Score Risk Level Prophylaxis Regimen 0-1 Low Early ambulation 2 Moderate Order ONE of the following: *Sequential Compression Device (SCD) *Heparin 5000 units SQ BID 3-4 Higher Order ONE of the following medications: *Heparin 5000 units SQ TID *Enoxaparin/Lovenox 40 mg SQ daily (WT < 150 kg, CrCl > 30 mL/min) *Enoxaparin/Lovenox 30 mg SQ daily (WT < 150 kg, CrCl > 10-29 mL/min) *Enoxaparin/Lovenox 30 mg SQ BID (WT < 150 kg, CrCl > 30 mL/min) AND/OR *Sequential Compression Device (SCD) 5 or more Highest Order ONE of the following medications: *Heparin 5000 units SQ TID (Preferred with Epidurals) *Enoxaparin/Lovenox 40 mg SQ daily (WT < 150 kg, CrCl > 30 mL/min) *Enoxaparin/Lovenox 30 mg SQ daily (WT < 150 kg, CrCl > 10-29 mL/min) *Enoxaparin/Lovenox 30 mg SQ BID (WT < 150 kg, CrCl > 30 mL/min) AND *Sequential Compression Device (SCD) Assessment and Plan - Plan HCAP Imaging reveals right sided pneumonia. He was recently hospitalized. -continue IV aztreonam and vancomycin. -s/p IVFs. -oxygen and nebs as needed. -Spiriva. -blood and sputum cultures. -incentive spirometry. Afib/ CHF Currently rate controlled. Appears euvolemic. -continue home meds including Eliquis. -telemetry. Chronic pain Has had multiple right ankle surgeries. -MS Contin with oxycodone and morphine for breakthrough. -PT eval. Anemia Chronic, at baseline. -follow CBC as needed. PPx: Eliquis H&P: Quality - VTE Deep Vein Thrombosis/Pulmonary Embolism Present on Admission: No
[2018-02-23] MEDS: dilTIAZem CD 240 MG Capsule PO SCH (09:51)
[2018-02-23] MEDS: Ferrous Sulfate 325 MG Tablet PO SCH ×2 (09:51→22:13)
[2018-02-23] MEDS: Senna/Docusate Sodium 8.6/50 MG Tablet PO SCH ×3 (09:51→22:17)
[2018-02-23] MEDS: Lactobacillus Acidophilus/L. Spores Tablet PO SCH (09:51)
[2018-02-23] MEDS: Sertraline 50 MG Tablet PO SCH (09:52)
[2018-02-23] MEDS: Pantoprazole Sodium 20 MG DR Tablet PO SCH ×2 (09:52→22:13)
[2018-02-23] MEDS: Metoprolol Tartrate 50 MG Tablet PO SCH ×2 (09:52→22:14)
[2018-02-23] MEDS: Tiotropium Bromide 18 MCG/ACT Inhaler INH SCH (10:49)
[2018-02-23] MEDS: clonazePAM 1 MG Tablet PO SCH ×2 (10:49→22:15)
[2018-02-23] MEDS: Morphine Sulfate 15 MG SR Tablet PO SCH ×2 (11:40→22:13)
[2018-02-23] MEDS: Vancomycin Inj 1,000 MG in Sodium Chlor 0.9% Inj 250 ML IV.SIG SCH (15:21)
[2018-02-23] MEDS: Morphine Sulfate Inj 2 MG/ML Vial IV.PUSH PRN ×2 (19:02→23:24)
[2018-02-24] MEDS: Vancomycin Inj 1,000 MG in Sodium Chlor 0.9% Inj 250 ML IV.SIG SCH ×2 (02:44→14:50)
[2018-02-24] MEDS: Morphine Sulfate Inj 2 MG/ML Vial IV.PUSH PRN ×4 (02:48→20:58)
[2018-02-24] MEDS: Sod Chloride 0.9% Inj 1,000 ML IV.CONT SCH ×3 (02:50→23:22)
[2018-02-24] MEDS: Aztreonam Inj 2 GM in Sodium Chloride 0.9% Inj 100 ML IV.SIG SCH ×3 (04:25→20:37)
[2018-02-24] MEDS: oxyCODONE/Acetaminophen 10/325 Tablet PO PRN ×3 (06:12→18:39)
[2018-02-24] MEDS: Senna/Docusate Sodium 8.6/50 MG Tablet PO SCH ×2 (09:41→20:42)
[2018-02-24] MEDS: Lactobacillus Acidophilus/L. Spores Tablet PO SCH (09:49)
[2018-02-24] MEDS: Sertraline 50 MG Tablet PO SCH (09:49)
[2018-02-24] MEDS: Tiotropium Bromide 18 MCG/ACT Inhaler INH SCH (09:49)
[2018-02-24] MEDS: dilTIAZem CD 240 MG Capsule PO SCH (09:49)
[2018-02-24] MEDS: Metoprolol Tartrate 50 MG Tablet PO SCH ×2 (09:49→20:40)
[2018-02-24] MEDS: Ferrous Sulfate 325 MG Tablet PO SCH ×2 (09:50→20:40)
[2018-02-24] MEDS: Pantoprazole Sodium 20 MG DR Tablet PO SCH ×2 (09:50→20:40)
[2018-02-24] MEDS: clonazePAM 1 MG Tablet PO SCH ×2 (09:50→20:41)
--- NOTE | 2018-02-24 10:15 | P.PNIM ---
Subjective Interval history: The patient said he felt better this morning. He felt like he had a paradigm shift. He tried to do some meditation earlier. He says his pain is well controlled. He has been moving more. He worked with physical therapy. Physical Exam Vital signs: Vital Signs 02/23/18 13:00 02/23/18 18:06 02/23/18 20:00 Temperature 96.5 F L 98.2 F 97.4 F L Pulse Rate 92 H 72 84 Respiratory Rate 16 15 18 Blood Pressure 122/65 116/65 108/60 Pulse Oximetry 97 98 98 02/23/18 20:25 02/24/18 00:00 02/24/18 00:35 Temperature 97.4 F L Pulse Rate 75 89 Respiratory Rate 18 18 Blood Pressure 116/77 Pulse Oximetry 97 02/24/18 01:28 02/24/18 04:00 02/24/18 04:35 Temperature 97.4 F L Pulse Rate 64 83 91 H Respiratory Rate 16 20 Blood Pressure 87/55 L 118/72 Pulse Oximetry 97 02/24/18 05:58 02/24/18 06:38 02/24/18 07:52 Temperature Pulse Rate 64 Respiratory Rate 18 Blood Pressure Pulse Oximetry 98 02/24/18 08:00 Temperature 97.2 F L Pulse Rate 74 Respiratory Rate 18 Blood Pressure 109/66 Pulse Oximetry 98 Intake & Output 02/23/18 02/24/18 02/24/18 18:59 06:59 18:59 Intake Total 1350 / 1350 1570 / 1570 Output Total 1200 / 1200 Balance 1350 / 1350 370 / 370 Weight 66.5 kg Intake: IV 1350 / 1350 1450 / 1450 NS Inj 1,000 ML @ 100 mls/hr IV 1000 / 1000 1000 / 1000 .CONT .Q10H [facility] Rx#:[id number] Azactam Inj 2 GM In NS Inj 100 100 / 100 200 / 200 ML @ 200 mls/hr IV.SIG Q8H [facility] Rx#:[id number] Vancomycin Inj 1,000 MG In NS 250 / 250 250 / 250 Inj 250 ML @ 250 mls/hr IV.SIG Q12H [facility] Rx#:[id number] Oral 120 / 120 Output: Urine 1200 / 1200 Other: # Voids 1 Narrative: GENERAL: NAD. SKIN: Focused skin assessment warm/dry. HEAD: Atraumatic. Normocephalic. EYES: Pupils equal and round. No scleral icterus. No injection or drainage. ENT: No nasal bleeding or discharge. Mucous membranes pink and moist. NECK: Trachea midline. No JVD. CARDIOVASCULAR: Irregularly irregular. No audible murmur. RESPIRATORY: Decreased breath sounds. GASTROINTESTINAL: Abdomen soft, non-tender, nondistended. No rebound tenderness. MUSCULOSKELETAL: No obvious deformities. No clubbing. No cyanosis. No edema. Calves are soft bilaterally. NEUROLOGICAL: Awake and alert. No obvious cranial nerve deficits. Motor grossly within normal limits. Normal speech. Results - Labs CBC & Chem 7: 02/22/18 16:30 02/22/18 20:00 Microbiology 02/23/18 06:40 Sputum - Expectorated Sputum Gram Stain - Final 02/22/18 18:05 Blood - Peripheral Aerobic Blood Culture - Preliminary No growth in 1 day 02/22/18 18:05 Blood - Peripheral Anaerobic Blood Culture - Preliminary No growth in 1 day 02/22/18 18:00 Blood - Peripheral Aerobic Blood Culture - Preliminary No growth in 1 day 02/22/18 18:00 Blood - Peripheral Anaerobic Blood Culture - Preliminary No growth in 1 day Assessment and Plan - Plan HCAP Imaging reveals right sided pneumonia. He was recently hospitalized. -continue IV aztreonam and vancomycin. Improved. -s/p IVFs. -oxygen and nebs as needed. -Spiriva. -blood and sputum cultures pending. -incentive spirometry. -Encourage ambulation. Afib/ CHF Currently rate controlled. Appears euvolemic. -continue home meds including Eliquis. -telemetry. Chronic pain Has had multiple right ankle surgeries. -MS Contin with oxycodone and morphine for breakthrough. Much improved. -PT eval. Anemia Chronic, at baseline. -follow CBC as needed. PPx: Eliquis
[2018-02-24] MEDS: Morphine Sulfate 15 MG SR Tablet PO SCH ×2 (11:12→20:40)
[2018-02-25] MEDS: Morphine Sulfate Inj 2 MG/ML Vial IV.PUSH PRN ×2 (00:12→03:18)
[2018-02-25] MEDS ORDERED: Pharmacy Ordered Lab Info OTHER ONE (01:45)
[2018-02-25] MEDS: Vancomycin Inj 1,000 MG in Sodium Chlor 0.9% Inj 250 ML IV.SIG SCH (02:11)
[2018-02-25 02:36] LABS: Baso # (Auto) 0.2 th/mm3 (0.0-0.2); Baso % (Auto) 1.8 % (0.0-2.0); Eos # (Auto) 0.2 th/mm3 (0.0-0.4); Eos % (Auto) 2.5 % (0.0-4.0); Hematocrit 30.9 % (39.0-51.0); Hemoglobin 9.5 gm/dL (13.0-17.0); Lymph # (Auto) 2.4 th/mm3 (1.0-4.8); Lymph % (Auto) 27.4 % (9.0-44.0); Mean Corpuscular Hemoglobin 24.6 pg (27.0-34.0); Mean Corpuscular Volume 79.8 fL (80.0-100.0); Mean Platelet Volume 8.2 fL (7.0-11.0); Mono # (Auto) 0.9 th/mm3 (0.0-0.9); Mono % (Auto) 9.9 % (0.0-8.0); Neut # (Auto) 5.1 th/mm3 (1.8-7.7); Neut % (Auto) 58.4 % (16.0-70.0); Platelet Count 412 th/mm3 (150-450); Red Blood Count 3.88 mil/mm3 (4.50-5.90); Red Cell Distribution Width 17.6 % (11.6-17.2); White Blood Count 8.8 th/mm3 (4.0-11.0)
[2018-02-25 02:53] LABS: Mean Corpuscular HGB Conc 30.8 % (32.0-36.0)
[2018-02-25] MEDS: Aztreonam Inj 2 GM in Sodium Chloride 0.9% Inj 100 ML IV.SIG SCH ×3 (03:19→21:20)
[2018-02-25] MEDS ORDERED: Morphine Inj 4 MG/ML Vial IV.PUSH PRN (03:30)
[2018-02-25 03:38] LABS: Calcium 7.5 mg/dL (8.5-10.1); Carbon Dioxide 26.9 meq/L (21.0-32.0); Potassium 4.4 meq/L (3.5-5.1)
[2018-02-25 03:40] LABS: Vancomycin,Trough 12.3 mcg/mL (5.0-10.0)
[2018-02-25 06:25] LABS: Ovalocytes 1+
[2018-02-25 06:26] LABS: Dimorphic RBC Present
--- NOTE | 2018-02-25 09:02 | P.PNIM ---
Subjective Interval history: The patient said that he feels better. He thinks he needs another day in the hospital. He still feels shaky at times. He tries to stand up slowly. He says his pain level is improved. He says his diet is still not all the way back to normal. Physical Exam Vital signs: Vital Signs 02/24/18 11:50 02/24/18 15:46 02/24/18 20:00 Temperature 96.9 F L 97.8 F 97.2 F L Pulse Rate 87 63 83 Respiratory Rate 18 18 20 Blood Pressure 128/85 107/61 120/73 Pulse Oximetry 96 97 97 02/25/18 00:00 02/25/18 04:00 02/25/18 08:00 Temperature 96.1 F L 97.7 F Pulse Rate 73 79 Respiratory Rate 20 20 Blood Pressure 149/70 H 138/78 Pulse Oximetry 97 96 98 Intake & Output 02/24/18 02/25/18 02/25/18 18:59 06:59 18:59 Intake Total 1350 / 1350 2945 / 2945 240 / 240 Output Total 1000 / 1000 Balance 1350 / 1350 1945 / 1945 240 / 240 Weight 68.8 kg Intake: IV 1350 / 1350 1100 / 1100 NS Inj 1,000 ML @ 100 mls/hr IV 1000 / 1000 1000 / 1000 .CONT .Q10H [facility] Rx#:[id number] Azactam Inj 2 GM In NS Inj 100 100 / 100 100 / 100 ML @ 200 mls/hr IV.SIG Q8H [facility] Rx#:[id number] Vancomycin Inj 1,000 MG In NS 250 / 250 Inj 250 ML @ 250 mls/hr IV.SIG Q12H [facility] Rx#:[id number] Oral 1845 / 1845 240 / 240 Output: Urine 1000 / 1000 Other: # Voids 5 2 Date of Last Bowel Movement 02/22/18 # Bowel Movements 3 Narrative: GENERAL: NAD. SKIN: Focused skin assessment warm/dry. HEAD: Atraumatic. Normocephalic. EYES: Pupils equal and round. No scleral icterus. No injection or drainage. ENT: No nasal bleeding or discharge. Mucous membranes pink and moist. NECK: Trachea midline. No JVD. CARDIOVASCULAR: Irregularly irregular. No audible murmur. RESPIRATORY: Decreased and prolonged breath sounds. GASTROINTESTINAL: Abdomen soft, non-tender, nondistended. No rebound tenderness. MUSCULOSKELETAL: No obvious deformities. No clubbing. No cyanosis. No edema. Calves are soft bilaterally. NEUROLOGICAL: Awake and alert. No obvious cranial nerve deficits. Motor grossly within normal limits. Normal speech. Results - Labs CBC & Chem 7: 02/25/18 02:10 02/25/18 02:10 Laboratory Results - last 24 hr 02/25/18 02/25/18 02:10 02:10 CBC w Diff Slide review pending WBC 8.8 RBC 3.88 L Hgb 9.5 L Hct 30.9 L MCV 79.8 L MCH 24.6 L MCHC 30.8 L RDW 17.6 H Plt Count 412 MPV 8.2 Neut % (Auto) 58.4 Lymph % (Auto) 27.4 [place] % (Auto) 9.9 H Eos % (Auto) 2.5 Baso % (Auto) 1.8 Neut # (Auto) 5.1 Lymph # (Auto) 2.4 [place] # (Auto) 0.9 Eos # (Auto) 0.2 Baso # (Auto) 0.2 WBC Differential . Diff Scan Auto diff confirmed Differential Comment . Dimorphic RBCs Present H Ovalocytes 1+ H Sodium 141 Potassium 4.4 Chloride 108 H Carbon Dioxide 26.9 Anion Gap 6 BUN 15 Creatinine 0.86 Estimated GFR 89 Random Glucose 104 Calcium 7.5 L Vancomycin Trough 12.3 H Microbiology 02/23/18 06:40 Sputum - Expectorated Sputum Gram Stain - Final 02/23/18 06:40 Sputum - Expectorated Sputum Sputum Culture - Preliminary Heavy growth normal respiratory matthew at 24 hours 02/22/18 18:05 Blood - Peripheral Aerobic Blood Culture - Preliminary No growth in 2 days 02/22/18 18:05 Blood - Peripheral Anaerobic Blood Culture - Preliminary No growth in 2 days 02/22/18 18:00 Blood - Peripheral Aerobic Blood Culture - Preliminary No growth in 2 days 02/22/18 18:00 Blood - Peripheral Anaerobic Blood Culture - Preliminary No growth in 2 days Assessment and Plan - Plan HCAP Imaging reveals right sided pneumonia. He was recently hospitalized. Sputum culture with normal growth. -continue IV aztreonam and vancomycin. Improved. -s/p IVFs. -oxygen and nebs as needed. Home oxygen walk test ordered. -Spiriva. -blood cultures pending. -incentive spirometry. -Encourage ambulation. Afib/ CHF Currently rate controlled. Appears euvolemic. -continue home meds including Eliquis. -telemetry. Chronic pain Has had multiple right ankle surgeries. -MS Contin with oxycodone and morphine for breakthrough. Much improved. -PT eval. Anemia Chronic, at baseline. -follow CBC as needed. PPx: Eliquis Discharge Planning: Anticipate d/c in AM
[2018-02-25] MEDS: Morphine Sulfate 15 MG SR Tablet PO SCH ×2 (09:12→21:20)
[2018-02-25] MEDS: clonazePAM 1 MG Tablet PO SCH ×2 (09:12→21:20)
[2018-02-25] MEDS: Pantoprazole Sodium 20 MG DR Tablet PO SCH ×2 (09:12→21:20)
[2018-02-25] MEDS: dilTIAZem CD 240 MG Capsule PO SCH (09:12)
[2018-02-25] MEDS: Sertraline 50 MG Tablet PO SCH (09:13)
[2018-02-25] MEDS: Metoprolol Tartrate 50 MG Tablet PO SCH ×2 (09:13→21:21)
[2018-02-25] MEDS: Ferrous Sulfate 325 MG Tablet PO SCH ×2 (09:13→21:21)
[2018-02-25] MEDS: Tiotropium Bromide 18 MCG/ACT Inhaler INH SCH (09:13)
[2018-02-25] MEDS: Senna/Docusate Sodium 8.6/50 MG Tablet PO SCH ×2 (09:14→21:20)
[2018-02-25] MEDS: Lactobacillus Acidophilus/L. Spores Tablet PO SCH (09:14)
[2018-02-25] MEDS: oxyCODONE/Acetaminophen 10/325 Tablet PO PRN ×3 (10:37→22:40)
[2018-02-25] MEDS: Vancomycin Inj 1,200 MG in Sodium Chlor 0.9% Inj 250 ML IV.SIG SCH (13:56)
[2018-02-26] MEDS: Vancomycin Inj 1,200 MG in Sodium Chlor 0.9% Inj 250 ML IV.SIG SCH (01:50)
[2018-02-26] MEDS: Aztreonam Inj 2 GM in Sodium Chloride 0.9% Inj 100 ML IV.SIG SCH (05:17)
[2018-02-26] MEDS: oxyCODONE/Acetaminophen 10/325 Tablet PO PRN (05:18)
[2018-02-26 06:11] LABS: Glomerular Filtration Rate Greater Than 89 mL/min (>89)
[2018-02-26] MEDS: Morphine Sulfate 15 MG SR Tablet PO SCH (08:18)
[2018-02-26] MEDS: Ferrous Sulfate 325 MG Tablet PO SCH (08:19)
[2018-02-26] MEDS: Senna/Docusate Sodium 8.6/50 MG Tablet PO SCH (08:20)
[2018-02-26] MEDS: Pantoprazole Sodium 20 MG DR Tablet PO SCH (08:20)
[2018-02-26] MEDS: Metoprolol Tartrate 50 MG Tablet PO SCH (08:21)
[2018-02-26] MEDS: Lactobacillus Acidophilus/L. Spores Tablet PO SCH (08:21)
[2018-02-26] MEDS: dilTIAZem CD 240 MG Capsule PO SCH (08:21)
[2018-02-26] MEDS: Sertraline 50 MG Tablet PO SCH (08:21)
[2018-02-26] MEDS: clonazePAM 1 MG Tablet PO SCH (08:22)
[2018-02-26] MEDS: Tiotropium Bromide 18 MCG/ACT Inhaler INH SCH (08:22)
--- NOTE | 2018-02-26 09:00 | P.DS ---
Date of admission: 02/22/18 18:53 Primary care physician: Chance Tarango MD Anticipated date of discharge: 02/26/18 Brief History from admission: The patient is a 67-year-old male with past medical history of COPD, atrial fibrillation, pneumonia and CHF who is presenting to the hospital with shortness of breath and palpitations. The patient says that his home health aide saw him yesterday and said he did not look well. The patient felt like he had pneumonia. He said his heart rate was in the 140s and he felt the palpitations. He endorsed a cough with green sputum production. He has been having worsening shortness of breath. He took his Spiriva at home. He says that he has had a scraping pain on the lower right side of his chest. He said he has not been able to get comfortable. He says he has been feeling unwell for 2-3 days. He says he has had low-grade fevers, chills. He also says that his body has been shaking because of how cold he is. He has been feeling very weak. He has not been eating. He says his chronic pain medications have recently been reduced to 50 mg of MS Contin twice daily and 10 mg of oxycodone for breakthrough. He says that he has had weight loss and has seen multiple GI doctors who seem to have different opinions for why he is losing weight. Patient update on day of discharge: The patient was sitting up in a chair. He was feeling well. He would like to know if there is a methadone clinic he could be referred to. He says he tries to eat frequent small meals. He had no acute complaints at this time. DS: Diagnosis - Discharge Diagnosis (1) Pneumonia Status: Acute (2) Acute exacerbation of chronic obstructive pulmonary disease (COPD) Status: Acute DS: Medications - Discharge Medications Prescriptions: levofloxacin [Levaquin] 750 mg PO DAILY #3 tab DS: Summary Hospital Course: HCAP Imaging revealed right sided pneumonia. He was recently hospitalized. Sputum culture with normal growth. We continued IV aztreonam and vancomycin. He received IVFs. He received oxygen and nebs as needed. He passed the home oxygen walk test performed by respiratory therapy. He used incentive spirometry. We continued Spiriva. Blood cultures with NGTD. We encouraged ambulation. He worked with physical therapy. He will complete a course of Levaquin. He will follow up with his PCP. Afib/ CHF Currently rate controlled. Appears euvolemic. We continued his home meds including Eliquis. He was monitored on telemetry. Chronic pain Has had multiple right ankle surgeries. We continued MS Contin with oxycodone and morphine for breakthrough. Case management was consulted as the pt wished to be referred to a local methadone clinic. Anemia Chronic, at baseline. We continued iron supplementation. - Time Spent with Patient Total time spent providing and/or coordinating discharge services: Greater than 30 minutes - Quality: VTE Deep Vein Thrombosis/Pulmonary Embolism Present on Admission: No Exam Vital signs: Vital Signs 02/25/18 09:16 02/25/18 11:50 02/25/18 12:00 Temperature 97.1 F L Pulse Rate 80 Respiratory Rate 16 21 Blood Pressure 136/68 Pulse Oximetry 99 Pulse Oximetry [Exertion on Room Air] 98 Pulse Oximetry [Resting on Room Air] 98 02/25/18 16:00 02/25/18 17:28 02/25/18 17:46 Temperature 99.5 F Pulse Rate 64 Respiratory Rate 21 16 16 Blood Pressure 117/58 L Pulse Oximetry 96 Pulse Oximetry [Exertion on Room Air] Pulse Oximetry [Resting on Room Air] 02/25/18 19:56 02/25/18 20:00 02/26/18 00:00 Temperature 97.6 F 98.1 F Pulse Rate 76 76 Respiratory Rate 16 20 Blood Pressure 141/74 H 145/75 H Pulse Oximetry 97 97 98 Pulse Oximetry [Exertion on Room Air] Pulse Oximetry [Resting on Room Air] 02/26/18 03:57 02/26/18 04:24 Temperature 98 F Pulse Rate 74 Respiratory Rate 20 18 Blood Pressure 138/80 Pulse Oximetry 96 Pulse Oximetry [Exertion on Room Air] Pulse Oximetry [Resting on Room Air] Intake & Output 02/25/18 02/26/18 02/26/18 18:59 06:59 18:59 Intake Total 842 / 842 462 / 462 Output Total 1350 / 1350 830 / 830 Balance -508 / -508 -368 / -368 Weight 67.3 kg Intake: IV 362 / 362 462 / 462 Azactam Inj 2 GM In NS Inj 100 100 / 100 200 / 200 ML @ 200 mls/hr IV.SIG Q8H JANETTE Rx#:[id number] Vancomycin Inj 1,200 MG In NS 262 / 262 262 / 262 Inj 250 ML @ 250 mls/hr IV.SIG Q12H JANETTE Rx#:[id number] Oral 480 / 480 Output: Urine 1350 / 1350 830 / 830 Other: Date of Last Bowel Movement 02/25/18 02/25/18 Narrative: GENERAL: NAD. SKIN: Focused skin assessment warm/dry. HEAD: Atraumatic. Normocephalic. EYES: Pupils equal and round. No scleral icterus. No injection or drainage. ENT: No nasal bleeding or discharge. Mucous membranes pink and moist. NECK: Trachea midline. No JVD. CARDIOVASCULAR: Irregularly irregular. No audible murmur. RESPIRATORY: Decreased and prolonged breath sounds. GASTROINTESTINAL: Abdomen soft, non-tender, nondistended. No rebound tenderness. MUSCULOSKELETAL: No obvious deformities. No clubbing. No cyanosis. No edema. Calves are soft bilaterally. NEUROLOGICAL: Awake and alert. No obvious cranial nerve deficits. Motor grossly within normal limits. Normal speech. Results Procedures completed during hospitalization: None Labs on day of discharge: Labs from last 24 hours 02/26/18 05:05 Creatinine 0.72 Estimated GFR Greater than 89 Preliminary micro results at discharge 02/22/18 18:05 Aerobic Blood Culture - Preliminary Blood - Peripheral No growth in 3 days Anaerobic Blood Culture - Preliminary No growth in 3 days 02/22/18 18:00 Aerobic Blood Culture - Preliminary Blood - Peripheral No growth in 3 days Anaerobic Blood Culture - Preliminary No growth in 3 days - Impressions ITS Impressions Chest X-Ray 02/22/18 16:17 CONCLUSION: Increasing consolidative opacity in the left upper lobe bronchiectasis and possible cavitation. Chest CT 02/22/18 16:52 CONCLUSION: 1. Areas of patchy increased opacity now noted in the right lower lobe in areas of honeycombing and scarring. This could represent an early pneumonia. 2. Stable scarring in the left upper lobe with adjacent levels. There are no new masses or lesions in this region. 3. Underlying emphysema again noted as well as coronary artery calcifications. Discharge Plan - Discharge Disposition Patient Disposition: 01 Discharge Home - Discharge Condition Condition: Stable - Discharge Order Discharge Orders: Discharge Order (Routine); Ordered 02/26/18 Ordered By: James Tinajero - Discharge Details Anticipated Discharge Date: 02/26/18 - Physicians Team Primary Care Provider: Chance Tarango Attending Provider: James Tinajero Other Providers: [employer],Insurance
[2018-02-27] MEDS ORDERED: VANCOMYCIN TROUGH OTHER ONE (01:45)
== END 2018-02-26 10:51 | disposition home or self-care (01) ==
LOC: PHED 15:55 → PHEDA 18:53 → PH3 20:30
PROVIDERS: ADMIT Hospitalist; ATTEND Hospitalist